=== PATIENT | male | born 1970 | race Caucasian/White ===

== ENCOUNTER 2016-03-22 09:50 | Outpatient (CLI) | payer MEDICAID | END 2016-03-22 09:51 | disposition home or self-care (01) | DX: E11.9 Type 2 diabetes mellitus without complications (principal); I10 Essential (primary) hypertension ==

== ENCOUNTER 2016-07-30 10:01 | Outpatient (CLI) | payer MEDICAID ==
[2016-07-30 13:41] LABS: CALCIUM 9.9 mg/dL (8.5-10.3); CREATININE 0.8 mg/dL (0.6-1.2); POTASSIUM 4.8 mmol/L (3.5-5.0)
[2016-07-30 18:46] LABS: HEMOGLOBIN A1C 1.84 g/dL
== END 2016-07-30 10:02 | disposition home or self-care (01) ==
LOC: LAB.N 10:01
PROVIDERS: ATTEND Family Medicine
DX: E11.65 Type 2 diabetes mellitus with hyperglycemia (principal)
CPT/HCPCS: 36415; 80048; 83036

== ENCOUNTER 2016-10-29 11:15 | Outpatient (CLI) | payer MEDICAID | END 2016-10-29 11:30 | disposition home or self-care (01) | LOC: RT.N 11:15 | PROVIDERS: ATTEND Physician Assistant | DX: I10 Essential (primary) hypertension (principal) | CPT/HCPCS: 93005 ==

== ENCOUNTER 2016-10-30 07:48 | Outpatient (CLI) | payer MEDICAID ==
[2016-10-30 13:00] LABS: BASOPHILS # (AUTO) 0.1 10^3/uL (0.0-0.1); BASOPHILS % (AUTO) 1.1 %; EOSINOPHILS # (AUTO) 0.3 10^3/uL (0.0-0.7); EOSINOPHILS % (AUTO) 4.4 %; HCT - HEMATOCRIT 41.7 % (42.0-52.0); HGB - HEMOGLOBIN 14.3 g/dL (14.0-18.0); LYMPHOCYTES # (AUTO) 1.9 10^3/uL (1.5-3.5); LYMPHOCYTES % (AUTO) 29.8 %; MEAN CORPUSCULAR HEMOGLOBIN 33.1 pg (27.0-31.0); MEAN CORPUSCULAR HGB CONC 34.4 g/dL (32.0-36.0); MEAN CORPUSCULAR VOLUME 96.2 fL (80.0-94.0); MEAN PLATELET VOLUME 9.7 fL (7.4-11.4); MONOCYTES # (AUTO) 0.8 10^3/uL (0.0-1.0); MONOCYTES % (AUTO) 12.9 %; NEUTROPHILS # (AUTO) 3.2 10^3/uL (1.5-6.6); NEUTROPHILS % (AUTO) 51.8 %; NUCLEATED RED BLOOD CELLS AUTO 0.2 /100WBC; RED BLOOD COUNT 4.33 10^6/uL (4.70-6.10); RED CELL DISTRIBUTION WIDTH 13.3 % (12.0-15.0); UNCORRECTED WHITE BLOOD COUNT 6.2 x10^3/uL; WHITE BLOOD COUNT 6.2 x10^3/uL (4.8-10.8)
[2016-10-30 13:21] LABS: ALBUMIN/GLOBULIN RATIO 1.3 (1.0-2.2); BILIRUBIN,TOTAL 1.1 mg/dL (0.2-1.0); CALCIUM 9.2 mg/dL (8.5-10.3); CREATININE 0.6 mg/dL (0.6-1.2); POTASSIUM 4.6 mmol/L (3.5-5.0); TOTAL PROTEIN 7.2 g/dL (6.7-8.2)
== END 2016-10-30 07:49 | disposition home or self-care (01) ==
LOC: LAB.N 07:48
PROVIDERS: ATTEND Physician Assistant
DX: F10.10 Alcohol abuse, uncomplicated (principal)
CPT/HCPCS: 36415; 80053; 85025

== ENCOUNTER 2017-04-07 08:43 | Outpatient (CLI) | payer MEDICAID ==
[2017-04-07 08:56] LABS: BASOPHILS # (AUTO) 0.1 10^3/uL (0.0-0.1); BASOPHILS % (AUTO) 1.4 %; EOSINOPHILS # (AUTO) 0.3 10^3/uL (0.0-0.7); EOSINOPHILS % (AUTO) 4.6 %; HGB - HEMOGLOBIN 15.6 g/dL (14.0-18.0); LYMPHOCYTES # (AUTO) 1.5 10^3/uL (1.5-3.5); LYMPHOCYTES % (AUTO) 22.8 %; MEAN CORPUSCULAR HEMOGLOBIN 32.6 pg (27.0-31.0); MEAN CORPUSCULAR VOLUME 93.2 fL (80.0-94.0); MEAN PLATELET VOLUME 9.1 fL (7.4-11.4); MONOCYTES % (AUTO) 15.7 %; NEUTROPHILS # (AUTO) 3.6 10^3/uL (1.5-6.6); NEUTROPHILS % (AUTO) 55.5 %; PLT - PLATELET COUNT 105 10^3/uL (130-450); RED BLOOD COUNT 4.78 10^6/uL (4.70-6.10); RED CELL DISTRIBUTION WIDTH 13.2 % (12.0-15.0); WHITE BLOOD COUNT 6.5 x10^3/uL (4.8-10.8)
[2017-04-07 09:07] LABS: ALBUMIN 4.1 g/dL (3.2-5.5); ALBUMIN/GLOBULIN RATIO 1.3 (1.0-2.2); BILIRUBIN,TOTAL 1.1 mg/dL (0.2-1.0); CALCIUM 9.8 mg/dL (8.5-10.3); CREATININE 0.6 mg/dL (0.6-1.2); TOTAL PROTEIN 7.2 g/dL (6.7-8.2)
[2017-04-07 09:23] LABS: HB2 TOTAL 17.4 g/dL; HEMOGLOBIN A1C 1.9 g/dL; HEMOGLOBIN A1C % 12.1 % (4.6-6.2)
== END 2017-04-07 08:44 | disposition home or self-care (01) ==
LOC: LAB 08:43
PROVIDERS: ATTEND Physician Assistant Medical
DX: E66.01 Morbid (severe) obesity due to excess calories (principal); R73.9 Hyperglycemia, unspecified; F17.210 Nicotine dependence, cigarettes, uncomplicated; E11.65 Type 2 diabetes mellitus with hyperglycemia; F10.10 Alcohol abuse, uncomplicated; I10 Essential (primary) hypertension
CPT/HCPCS: 36415; 80053; 83036; 85025

== ENCOUNTER 2018-01-12 08:06 | Outpatient (CLI) | payer MEDICAID ==
[2018-01-12 08:24] LABS: BASOPHILS # (AUTO) 0.1 10^3/uL (0.0-0.1); BASOPHILS % (AUTO) 1.3 %; EOSINOPHILS # (AUTO) 0.2 10^3/uL (0.0-0.7); EOSINOPHILS % (AUTO) 3.3 %; HGB - HEMOGLOBIN 14.9 g/dL (14.0-18.0); LYMPHOCYTES # (AUTO) 1.5 10^3/uL (1.5-3.5); LYMPHOCYTES % (AUTO) 28.3 %; MEAN CORPUSCULAR HEMOGLOBIN 33.5 pg (27.0-31.0); MEAN CORPUSCULAR VOLUME 95.7 fL (80.0-94.0); MEAN PLATELET VOLUME 8.8 fL (7.4-11.4); MONOCYTES # (AUTO) 0.9 10^3/uL (0.0-1.0); MONOCYTES % (AUTO) 16.5 %; NEUTROPHILS # (AUTO) 2.8 10^3/uL (1.5-6.6); NEUTROPHILS % (AUTO) 50.6 %; PLT - PLATELET COUNT 118 10^3/uL (130-450); RED BLOOD COUNT 4.45 10^6/uL (4.70-6.10); RED CELL DISTRIBUTION WIDTH 13.4 % (12.0-15.0); WHITE BLOOD COUNT 5.4 x10^3/uL (4.8-10.8)
[2018-01-12 08:43] LABS: BUN - BLOOD UREA NITROGEN 21 mg/dL (6-20); CALCIUM 9.1 mg/dL (8.5-10.3); CARBON DIOXIDE - CO2 29 mmol/L (21-32); CHLORIDE 97 mmol/L (101-111); CHOL/HDL RATIO 3.5 (<5.0); CHOLESTEROL 138 mg/dL; CREATININE 0.9 mg/dL (0.6-1.2); GFR - MDRD 90 (>89); GLUCOSE 363 mg/dL (70-100); HDL CHOLESTEROL 39 mg/dL; LDL CHOLESTEROL,CALCULATED 77 mg/dL; SODIUM 134 mmol/L (135-145); VLDL CHOLESTEROL 22 mg/dL
[2018-01-12 08:44] LABS: HB2 TOTAL 16.2 g/dL; HEMOGLOBIN A1C 1.8 g/dL; HEMOGLOBIN A1C % 12.3 % (4.6-6.2)
== END 2018-01-12 08:07 | disposition home or self-care (01) ==
LOC: LAB 08:06
PROVIDERS: ATTEND Physician Assistant Medical
DX: E11.9 Type 2 diabetes mellitus without complications (principal); I10 Essential (primary) hypertension; E66.01 Morbid (severe) obesity due to excess calories
CPT/HCPCS: 36415; 80048; 80061; 83036; 83721; 85025

== ENCOUNTER 2018-10-27 08:53 | Outpatient (CLI) | payer MEDICAID ==
[2018-10-27 09:15] LABS: CALCIUM 9.8 mg/dL (8.5-10.3); CREATININE 0.8 mg/dL (0.6-1.2)
[2018-10-27 09:40] LABS: HB2 TOTAL 16.1 g/dL; HEMOGLOBIN A1C 1.73 g/dL
== END 2018-10-27 08:54 | disposition home or self-care (01) ==
LOC: LAB 08:53
PROVIDERS: ATTEND Physician Assistant Medical
DX: E11.8 Type 2 diabetes mellitus with unspecified complications (principal)
CPT/HCPCS: 36415; 80048; 83036

== ENCOUNTER 2018-12-01 08:00 | Outpatient (CLI) | payer MEDICAID | END 2018-12-01 23:59 | disposition home or self-care (01) | LOC: LAB.N 08:00 | PROVIDERS: ATTEND Family Medicine | DX: R31.9 Hematuria, unspecified (principal) | CPT/HCPCS: 36415; 84153; 87086 ==

== ENCOUNTER 2019-01-16 08:19 | Outpatient (CLI) | payer MEDICAID ==
--- NOTE | 2019-01-17 04:44 | Ultrasound Report ---
Reason: HEMATURIA, BACK PAIN Procedure Date: 01/16/2019 Accession Number: [id number] / [id number] Procedure: US - Retroperitoneal CPT Code: Final Report FULL RESULT: EXAM: RENAL ULTRASOUND EXAM DATE: 01/16/2019 09:11 AM. CLINICAL HISTORY: HEMATURIA, BACK PAIN. COMPARISON: US abdomen 12/28/2013 8:12 AM. TECHNIQUE: Real-time scanning was performed with static images obtained. FINDINGS: Right Kidney: 14.3 x 5.2 x 7.2 cm. Normal echotexture with no stones, contour-deforming masses, or hydronephrosis. Left Kidney: 14.6 x 6.9 x 5.8 cm. Normal echotexture with no stones, contour-deforming masses, or hydronephrosis. Bladder: Bilateral jets seen. The prevoid bladder volume was 375 cc. The postvoid bladder volume was 39 cc. Other: Prostate measures 3.2 x 3.0 x 6.4 cm, 32 cc. IMPRESSION: 1. Kidneys show no significant abnormalities. 2. Post void residual 39 cc. RADIA
== END 2019-01-16 08:20 | disposition home or self-care (01) ==
LOC: DI 08:19
PROVIDERS: ATTEND Urology
DX: R31.9 Hematuria, unspecified (principal)
CPT/HCPCS: 76770

== ENCOUNTER 2019-02-20 06:41 | Outpatient (CLI) | payer MEDICAID ==
[2019-02-20 07:05] LABS: CREATININE 0.6 mg/dL (0.6-1.2)
[2019-02-20] MEDS ORDERED: IOVERSOL 320 100 ML VIAL IVP ONE ×2 (07:05→07:43)
--- NOTE | 2019-02-20 11:52 | CT Report ---
Reason: MICROSCOPIC HEMATURIA Procedure Date: 02/20/2019 Accession Number: [id number] / [id number] Procedure: CT - IVP CPT Code: Final Report FULL RESULT: EXAM: CT ABDOMEN AND PELVIS WITHOUT AND WITH CONTRAST (CT IVP) EXAM DATE: 02/20/2019 07:57 AM. CLINICAL HISTORY: microscopic hematuria x2 months. COMPARISONS: CT ABDOMEN/PELVIS W/ 03/05/2013 11:01 AM. TECHNIQUE: Routine helical imaging was performed through the kidneys, ureters and bladder in the precontrast, postcontrast and delayed phase (split bolus protocol utilized). IV Contrast: 100 cc Optiray 320. Reconstructions: Coronal and sagittal. In accordance with CT protocol optimization, one or more of the following dose reduction techniques were utilized for this exam: automated exposure control, adjustment of mA and/or KV based on patient size, or use of iterative reconstructive technique. FINDINGS: Lung Bases: Unremarkable. Liver: Normal. No masses. Gallbladder/Bile Ducts: There are calcified gallstones within the gallbladder. No biliary dilatation. Spleen: Normal. Pancreas: Normal. Adrenal Glands: Normal. Kidneys/Bladder: Right Kidney/Ureter: No renal or ureteral stones. No hydronephrosis or hydroureter. No masses. Evaluation of the renal collecting system is limited by low density of excreted contrast. Left Kidney/Ureter: No renal or ureteral stones. No hydronephrosis or hydroureter. No masses. Evaluation of the renal collection system is limited by low density of excreted contrast. Bladder: No stones. No wall thickening or mass. There is dilute contrast in the urinary bladder on post contrast images. Peritoneal Cavity/Bowel: No free air or adenopathy. There is trace free fluid in the right upper quadrant of the abdomen over the dome of the liver, and in the bilateral paracolic gutters. No masses or acute inflammatory process. No dilated loops of bowel or abnormal colonic stool burden. The appendix is normal. Pelvic Organs: Visualized pelvic organs are unremarkable. Vasculature: No aneurysms or other significant abnormality. Bones: No fracture or other acute osseous abnormality. No bone lesion. There are mild to moderate degenerative disk changes of the lower thoracic and lumbar spine. There is a large posterior disk bulge at the L5-S1 level with severe narrowing of the central canal, unchanged compared to 03/05/2013. Other: None. IMPRESSION: 1. No renal mass, hydronephrosis, or renal collecting system calculi identified. Evaluation of the renal collecting systems is limited by low density of excreted contrast on these split bolus protocol images. Recommend repeating a delayed excretory phase series to complete the evaluation, which should be performed at no cost. 2. Cholelithiasis. No evidence of acute cholecystitis. 3. Small amount of free intraperitoneal fluid. RADIA
== END 2019-02-20 06:42 | disposition home or self-care (01) ==
LOC: DI 06:41
PROVIDERS: ATTEND Urology
DX: K80.20 Calculus of gallbladder without cholecystitis without obstruction (principal); R31.29 Other microscopic hematuria
CPT/HCPCS: 36415; 74178; 82565; 84520; Q9967

== ENCOUNTER 2019-03-16 08:18 | Outpatient (CLI) | payer MEDICAID ==
[2019-03-16] MEDS ORDERED: IOVERSOL 320 100 ML VIAL IVP ONE ×2 (08:26→08:51)
--- NOTE | 2019-03-16 09:57 | CT Report ---
Reason: TECH REPEAT - HEMATURIA Procedure Date: 03/16/2019 Accession Number: [id number] / [id number] Procedure: CT - IVP CPT Code: Final Report FULL RESULT: EXAM: CT ABDOMEN AND PELVIS WITHOUT AND WITH CONTRAST (CT IVP) EXAM DATE: 03/16/2019 09:00 AM. CLINICAL HISTORY: TECH REPEAT - HEMATURIA. COMPARISONS: IVP 02/20/2019 7:40 AM. TECHNIQUE: Routine helical imaging was performed through the kidneys, ureters and bladder in the precontrast, postcontrast and delayed phase. IV Contrast: OPTI 320 100ML. Reconstructions: Coronal and sagittal. In accordance with CT protocol optimization, one or more of the following dose reduction techniques were utilized for this exam: automated exposure control, adjustment of mA and/or KV based on patient size, or use of iterative reconstructive technique. FINDINGS: Lung Bases: Unremarkable. Liver: Normal. No masses. Gallbladder/Bile Ducts: Cholelithiasis. Spleen: Splenomegaly, spleen spans up to 15 cm. Pancreas: Normal. Adrenal Glands: Normal. Kidneys/Bladder: Right Kidney/Ureter: No renal or ureteral stones. No hydronephrosis or hydroureter. As seen on axial image 58-3 and coronal image 37 series 5 as well as sagittal image 47 of series 6 there is narrowing of the small caliber contrast opacified ureter as it takes a tortuous course circumnavigating a draining vein with apparent filling defect potentially due to volume averaging of the 2 structures. A urothelial mass at this level cannot be excluded. Left Kidney/Ureter: No renal or ureteral stones. No hydronephrosis or hydroureter. No masses. Bladder: No stones. No wall thickening or mass. Peritoneal Cavity/Bowel: Normal. No free fluid, free air or adenopathy. No masses or acute inflammatory process. Pelvic Organs: Visualized pelvic organs are unremarkable. Vasculature: No aneurysms or other significant abnormality. Bones: Prominent disk osteophyte complex narrowing the apparent central canal at L5-S1 appears unchanged. No aggressive osseous lesions. Other: None. IMPRESSION: Apparent filling defect in the proximal to mid right ureter as described above, possibly an artifactual finding. Given hematuria and absence of calculi or other explanation, recommend consideration for direct visualization by ureteroscopy versus close interval follow-up. RADIA
== END 2019-03-16 08:19 | disposition home or self-care (01) ==
LOC: DI 08:18
PROVIDERS: ATTEND Urology
DX: R31.29 Other microscopic hematuria (principal)
CPT/HCPCS: 74178

== ENCOUNTER 2019-05-31 09:19 | Outpatient (CLI) | payer MEDICAID ==
[2019-05-31 09:36] LABS: BASOPHILS # (AUTO) 0.1 10^3/uL (0.0-0.1); BASOPHILS % (AUTO) 1.2 %; EOSINOPHILS # (AUTO) 0.1 10^3/uL (0.0-0.7); EOSINOPHILS % (AUTO) 2.8 %; HGB - HEMOGLOBIN 14.4 g/dL (14.0-18.0); LYMPHOCYTES # (AUTO) 1.1 10^3/uL (1.5-3.5); LYMPHOCYTES % (AUTO) 24.4 %; MEAN CORPUSCULAR HEMOGLOBIN 33.7 pg (27.0-31.0); MEAN CORPUSCULAR HGB CONC 35.3 g/dL (32.0-36.0); MEAN CORPUSCULAR VOLUME 95.6 fL (80.0-94.0); MEAN PLATELET VOLUME 10.8 fL (7.4-11.4); MONOCYTES # (AUTO) 0.8 10^3/uL (0.0-1.0); MONOCYTES % (AUTO) 18.9 %; NEUTROPHILS # (AUTO) 2.3 10^3/uL (1.5-6.6); NEUTROPHILS % (AUTO) 52.5 %; PLT - PLATELET COUNT 84 10^3/uL (130-450); RED BLOOD COUNT 4.27 10^6/uL (4.70-6.10); RED CELL DISTRIBUTION WIDTH 12.7 % (12.0-15.0); WHITE BLOOD COUNT 4.3 x10^3/uL (4.8-10.8)
[2019-05-31 09:50] LABS: CHOLESTEROL 205 mg/dL; HDL CHOLESTEROL 69 mg/dL; LDL CHOLESTEROL,CALCULATED 123 mg/dL; LDL/HDL RATIO 1.8 (<3.6); VLDL CHOLESTEROL 13 mg/dL
[2019-05-31 09:56] LABS: HEMOGLOBIN A1C 1.35 g/dL; HEMOGLOBIN A1C % 10.4 % (4.6-6.2)
== END 2019-05-31 09:20 | disposition home or self-care (01) ==
LOC: LAB 09:19
PROVIDERS: ATTEND Physician Assistant Medical
DX: E11.65 Type 2 diabetes mellitus with hyperglycemia (principal); E66.01 Morbid (severe) obesity due to excess calories; I10 Essential (primary) hypertension; Z79.4 Long term (current) use of insulin
CPT/HCPCS: 36415; 80061; 83036; 83721; 85025

== ENCOUNTER 2019-11-11 07:49 | Outpatient (CLI) | payer MEDICAID ==
[2019-11-11 08:49] LABS: HGB - HEMOGLOBIN 13.3 g/dL (14.0-18.0); MEAN CORPUSCULAR HEMOGLOBIN 34.4 pg (27.0-31.0); MEAN CORPUSCULAR HGB CONC 35.9 g/dL (32.0-36.0); MEAN CORPUSCULAR VOLUME 95.6 fL (80.0-94.0); MEAN PLATELET VOLUME 10.2 fL (7.4-11.4); RED BLOOD COUNT 3.87 10^6/uL (4.70-6.10); RED CELL DISTRIBUTION WIDTH 13.4 % (12.0-15.0); WHITE BLOOD COUNT 4.2 x10^3/uL (4.8-10.8)
[2019-11-11 09:01] LABS: CALCIUM 8.5 mg/dL (8.5-10.3); CREATININE 0.6 mg/dL (0.6-1.2)
== END 2019-11-11 07:50 | disposition home or self-care (01) ==
LOC: DI 07:49
PROVIDERS: ATTEND Family Medicine
DX: R06.09 Other forms of dyspnea (principal); R60.0 Localized edema
CPT/HCPCS: 36415; 80048; 83880; 85027; 93306

== ENCOUNTER 2019-12-08 07:49 | Emergency (ER) | payer MEDICAID ==
[2019-12-08] MEDS ORDERED: SILVER NITRATE APPLICATOR TOP STA ×2 (08:03→08:08)
--- NOTE | 2019-12-08 08:05 | ED Physician Documentation ---
PD HPI WOUND RECHECK - Stated complaint Stated Complaint: R BIG TOE INJ - Histroy obtained from History obtained from: Patient (49-year-old gentleman with diabetic neuropathy stubbed his right great toe yesterday. Because of the neuropathy it is painless.) Review of Systems Constitutional: denies: Fever, Chills Cardiac: reports: Reviewed and negative Respiratory: reports: Reviewed and negative PD PAST MEDICAL HISTORY - Past Medical History Cardiovascular: Hypertension Endocrine/Autoimmune: Type 2 diabetes Psych: Depression, Anxiety Musculoskeletal: Osteoarthritis, Other - Past Surgical History Past Surgical History: Yes Ortho: Arthroscopic surgery - Present Medications Home Medications: Ambulatory Orders Medication Instructions Recorded Confirmed Bupropion HCl [Wellbutrin] 150 mg PO BID 07/24/12 02/24/17 Metformin HCl [Metformin HCl ER] 1,000 mg PO BID 07/24/12 02/24/17 Metoprolol Succinate 25 mg PO BID 07/24/12 02/24/17 Atorvastatin [Lipitor] 40 mg PO DAILY PM 08/17/14 02/24/17 Albuterol Sulfate [Proair Hfa 1 - 2 puffs INH Q4H PRN 11/13/16 02/24/17 Inhaler] Aspirin [Adult Low Dose Aspirin EC] 81 mg PO DAILY 11/13/16 02/24/17 Diclofenac Sodium 50 mg PO BID 11/13/16 02/24/17 Insulin Glargine,Hum.rec.anlog 60 units SUBQ DAILY 11/13/16 02/24/17 [Basaglar Kwikpen U-100] Insulin Regular, Human [Humulin R] 15 - 30 units SUBQ TIDWM 11/13/16 02/24/17 Losartan [Cozaar] 50 mg ORAL DAILY 11/13/16 02/24/17 Multivitamin [Multivitamins] 1 each PO DAILY 11/13/16 02/24/17 [place]-3S/Dha/Epa/Fish Oil [Fish 1 cap ORAL DAILY 11/13/16 02/24/17 Oil [place]-3 Softgel] amLODIPine [Norvasc] 5 mg ORAL DAILY 11/13/16 02/24/17 Cholecalciferol (Vitamin D3) 2,000 unit PO DAILY 02/24/17 02/24/17 [Vitamin D] Furosemide [Lasix] 40 mg PO DAILY #10 tablet 08/11/20 Mupirocin Calcium [Mupirocin] 1 film TP BID #1 cream..g. 10/26/19 Bacitracin Zinc Oint 1 applic TOP BID #1 tube 12/08/19 Cephalexin [Keflex] 500 mg PO Q6H #28 capsule 12/08/19 - Allergies Allergies/Adverse Reactions: Allergies Allergy/AdvReac Type Severity Reaction Status Date / Time lisinopril Allergy Unknown Verified 12/08/19 08:16 - Social History Does the pt smoke?: No Smoking Status: Former smoker Does the pt drink ETOH?: Yes Does the pt have substance abuse?: No - Immunizations Immunizations are current?: No - POLST Patient has POLST: No PD ED PE NORMAL - Vitals Vital signs reviewed: Yes - General General: Alert and oriented X 3, No acute distress - HEENT HEENT: PERRL, EOMI - Extremities Extremities: Other (The right great toenail is hanging by a thread, it was removed painlessly during examination with brisk bleeding from the nailbed. He has chronic venous stasis changes of the feet and severe neuropathy.) - Neuro Neuro: Alert and oriented X 3, Normal speech Results - Vitals Vitals: Vital Signs - 24 hr 12/08/19 12/08/19 07:57 08:55 Temperature 37 C Heart Rate 90 Respiratory 16 Rate Blood Pressure 133/78 H 132/78 H O2 Saturation 100 Oxygen O2 Source Room air - Rads (name of study) Xray toe Radiology: EMP read contemporaneously (Bones are normal, the radiodensity noted I suspect is from the silver nitrate used for cautery.) PD MEDICAL DECISION MAKING - ED course ED course: His toenail was pretty much hanging off. This was removed during exam easily and did not require anesthetic Because of his neuropathy. The base was cauterized with silver nitrate and a dressing was placed. X-ray does not show any bony injury. Departure - Departure Disposition: 01 Home, Self Care Clinical Impression: Toenail avulsion Qualifiers: Encounter type: initial encounter Qualified Code(s): S91.209A - Unspecified open wound of unspecified toe(s) with damage to nail, initial encounter Condition: Good Record reviewed to determine appropriate education?: Yes Instructions: ED Foot Care Diabetic Prescriptions: Bacitracin Zinc Oint 1 applic TOP BID #1 tube Cephalexin [Keflex] 500 mg PO Q6H #28 capsule Comments: Soak your feet daily in clean water, soap and water as well. Otherwise keep it dressed with a clean nonstick dressing and antibiotic ointment prescribed. Return for new or worsening symptoms including redness, swelling, increased drainage. 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 Discharge Date/Time: 12/08/19 08:55
[2019-12-08 09:15] VITALS: BP 132/78
--- NOTE | 2019-12-08 09:24 | XRAY Report ---
PROCEDURE: Toe(s) RT INDICATIONS: R great toe inj TECHNIQUE: 3 views of the right great toe(s) acquired. COMPARISON: None FINDINGS: Bones: No fractures or dislocations. No suspicious bony lesions. Mild degenerative changes at the f irst MTP joint. Soft tissues: There is an irregular radiodensity in the dorsal tissues overlying the first distal pha lanx. IMPRESSION: No fractures. 2. Radiodensity in the dorsal soft tissues may be secondary to overlying bandage or density in the to enail. Correlate clinically. Reviewed by: Shantell Robertson MD on 12/08/2019 8:22 AM [facility] Approved by: Shantell Robertson MD on 12/08/2019 8:22 AM [facility] Station ID: [id number]
== END 2019-12-08 08:55 | disposition home or self-care (01) ==
LOC: ED 07:49
DX: S91.201A Unspecified open wound of right great toe with damage to nail, initial encounter (principal); W22.8XXA Striking against or struck by other objects, initial encounter; I10 Essential (primary) hypertension; E11.42 Type 2 diabetes mellitus with diabetic polyneuropathy; Z79.4 Long term (current) use of insulin
CPT/HCPCS: 73660; 99283

== ENCOUNTER 2020-02-15 10:02 | Inpatient (IN) | payer MEDICAID ==
[2020-02-15 10:43] LABS: BASOPHILS # (AUTO) 0.1 10^3/uL (0.0-0.1); BASOPHILS % (AUTO) 1.8 %; EOSINOPHILS # (AUTO) 0.1 10^3/uL (0.0-0.7); EOSINOPHILS % (AUTO) 2.4 %; LYMPHOCYTES # (AUTO) 0.8 10^3/uL (1.5-3.5); LYMPHOCYTES % (AUTO) 15.9 %; MEAN CORPUSCULAR HEMOGLOBIN 34.5 pg (27.0-31.0); MEAN CORPUSCULAR HGB CONC 34.4 g/dL (32.0-36.0); MEAN CORPUSCULAR VOLUME 100.3 fL (80.0-94.0); MEAN PLATELET VOLUME 9.5 fL (7.4-11.4); MONOCYTES # (AUTO) 0.7 10^3/uL (0.0-1.0); MONOCYTES % (AUTO) 14.5 %; NEUTROPHILS # (AUTO) 3.3 10^3/uL (1.5-6.6); NEUTROPHILS % (AUTO) 65.2 %; PLT - PLATELET COUNT 181 10^3/uL (130-450); RED BLOOD COUNT 3.77 10^6/uL (4.70-6.10); RED CELL DISTRIBUTION WIDTH 12.7 % (12.0-15.0); WHITE BLOOD COUNT 5.1 x10^3/uL (4.8-10.8)
[2020-02-15 10:53] LABS: ALBUMIN 2.5 g/dL (3.2-5.5); ALBUMIN/GLOBULIN RATIO 0.6 (1.0-2.2); BILIRUBIN,TOTAL 2.7 mg/dL (0.2-1.0); CALCIUM 8.8 mg/dL (8.5-10.3); CREATININE 0.8 mg/dL (0.6-1.2); TOTAL PROTEIN 6.8 g/dL (6.7-8.2)
--- NOTE | 2020-02-15 11:08 | XRAY Report ---
PROCEDURE: Chest 1 View X-Ray INDICATIONS: Chest pain TECHNIQUE: One view of the chest was acquired. COMPARISON: 10/26/2019 FINDINGS: Surgical changes and devices: None. Lungs and pleura: Low lung volumes. No pleural effusions or pneumothorax. Lungs are clear. Mediastinum: Mediastinal contours appear normal. Heart size is normal. Bones and chest wall: No suspicious bony lesions. Overlying soft tissues appear unremarkable. IMPRESSION: Low lung volumes. No acute finding. Reviewed by: Hank Busch MD on 02/15/2020 11:06 AM [facility] Approved by: Hank Busch MD on 02/15/2020 11:06 AM [facility] Station ID: [id number]
[2020-02-15] MEDS ORDERED: IOVERSOL 320 100 ML VIAL IVP ONE ×2 (11:12→13:20)
[2020-02-15] MEDS ORDERED: FUROSEMIDE 40 MG/4 ML VIAL IVP STA (11:39)
[2020-02-15] MEDS ORDERED: chlordiazePOXIDE 25 MG CAPSULE PO STA (11:50)
--- NOTE | 2020-02-15 11:50 | CT Report ---
PROCEDURE: PELVIS W INDICATIONS: r/o fourniers CONTRAST: IV CONTRAST: Optiray 320 ml: 100 PO CONTRAST: *NO PO CONTRAST TECHNIQUE: After the administration of intravenous contrast, 5 mm thick sections acquired from the iliac crests to the symphysis. 5 mm thick coronal and sagittal reformats were acquired. For radiation dose reduc tion, the following was used: automated exposure control, adjustment of mA and/or kV according to pa tient size. COMPARISON: CT IVP dated 03/16/2019 FINDINGS: Image quality: Excellent. Peritoneum and bowel: Contrast enhanced bowel loops demonstrate normal wall thickness and caliber. No free fluid or air. Genitourinary: Bladder wall thickness is normal. Nodes and vessels: No iliac, pelvic, or inguinal adenopathy. Iliac vessels demonstrate normal size and enhancement. Bones: No suspicious bony lesions. Miscellaneous: No inguinal hernias. Marked ascites has developed. There is generalized anasarca. Th ere is extensive scrotal edema. There is no gas present in the scrotum. IMPRESSION: 1. Development of marked ascites and generalized anasarca. 2. Extensive scrotal edema. No scrotal gas present. Reviewed by: Maikol Cowart MD on 02/15/2020 11:49 AM PST Approved by: Maikol Cowart MD on 02/15/2020 11:49 AM PST Station ID: [id number]
[2020-02-15 12:10] LABS: GLUCOSE, URINE (UA) 500 mg/dL (NEGATIVE); KETONES,URINE (UA) NEGATIVE (NEGATIVE); LEUKOCYTE ESTERASE, URINE NEGATIVE (NEGATIVE); NITRITE,URINE NEGATIVE (NEGATIVE); OCCULT BLOOD,URINE MODERATE (NEGATIVE); PROTEIN,URINE TRACE mg/dL (NEGATIVE); UROBILINOGEN,URINE 4 E.U./dL (NORMAL)
[2020-02-15 12:29] LABS: BILIRUBIN,URINE NEGATIVE (NEGATIVE); CLARITY,URINE HAZY (CLEAR); ICTOTEST,URINE NEGATIVE
[2020-02-15] MEDS ORDERED: IBUPROFEN 600 MG TABLET PO PRN (12:30)
--- NOTE | 2020-02-15 12:35 | ED Physician Documentation ---
History of Present Illness - Stated complaint Stated Complaint: MALE - Chief complaint Chief Complaint: General - History obtained from History obtained from: Patient - Additonal information Additional information: 49-year-old man with past medical history of alcohol abuse, last drink 1 week ago, diabetes, high blood pressure, hyperlipidemia, and cardiogenic diffuse edema, presents with testicular swelling over the past several days has progressively worsened to the point where he is unable to urinate normally. Also with progressive dyspnea and intermittent chest discomfort over the past several days. Patient saw slurry man Dr. Negron in january and had an echocardiogram and was told he has normal heart function. denies fevers, abdominal pain, dysuria, hematuria. moderate constant aching testicular pain that is nonradiating, a/w the swelling, without exacerbating//relieving factors. Review of Systems Ten Systems: 10 systems reviewed and negative Constitutional: denies: Fever, Chills Cardiac: reports: Chest pain / pressure, Pedal edema Respiratory: reports: Dyspnea. denies: Cough GI: denies: Abdominal Pain : reports: Unable to Void, Testicular pain PD PAST MEDICAL HISTORY - Past Medical History Past Medical History: Yes Cardiovascular: Hypertension, High cholesterol Respiratory: Asthma Neuro: Peripheral neuropathy Endocrine/Autoimmune: Type 2 diabetes GI: None : None HEENT: Other Psych: Depression, Anxiety Musculoskeletal: Osteoarthritis, Other Derm: Other - Past Surgical History Past Surgical History: Yes Ortho: Arthroscopic surgery - Present Medications Home Medications: Ambulatory Orders Medication Instructions Recorded Confirmed Bupropion HCl [Wellbutrin] 150 mg PO BID 07/24/12 02/15/20 Metformin HCl [Metformin HCl ER] 1,000 mg PO BID 07/24/12 02/15/20 Metoprolol Succinate 25 mg PO BID 07/24/12 02/15/20 Atorvastatin [Lipitor] 40 mg PO DAILY PM 08/17/14 02/15/20 Albuterol Sulfate [Proair Hfa 1 - 2 puffs INH Q4H PRN 11/13/16 02/15/20 Inhaler] Aspirin [Adult Low Dose Aspirin EC] 81 mg PO DAILY 11/13/16 02/15/20 Insulin Glargine,Hum.rec.anlog 65 units SUBQ DAILY PM 11/13/16 02/15/20 [Basaglstephon Asher U-100] Insulin Regular, Human [Humulin R] 15 - 30 units SUBQ TIDWM 11/13/16 02/15/20 Losartan [Cozaar] 100 mg ORAL DAILY 11/13/16 02/15/20 Multivitamin [Multivitamins] 1 each PO DAILY 11/13/16 02/15/20 [place]-3S/Dha/Epa/Fish Oil [Fish 1 cap ORAL DAILY 11/13/16 02/15/20 Oil [place]-3 Softgel] amLODIPine [Norvasc] 5 mg ORAL DAILY 11/13/16 02/15/20 Cholecalciferol (Vitamin D3) 2,000 unit PO DAILY 02/24/17 02/15/20 [Vitamin D] Furosemide [Lasix] 40 mg PO DAILY #10 tablet 10/26/19 02/15/20 Fluticasone Propionate [Flovent 1 puffs IH DAILY 02/15/20 02/15/20 Diskus] - Allergies Allergies/Adverse Reactions: Allergies Allergy/AdvReac Type Severity Reaction Status Date / Time lisinopril Allergy Unknown Verified 02/15/20 10:11 - Social History Does the pt smoke?: No Smoking Status: Former smoker Does the pt drink ETOH?: Yes ETOH Use: Beer Does the pt have substance abuse?: No - Immunizations Immunizations are current?: Yes - POLST Patient has POLST: No PD ED PE NORMAL - Vitals Vital signs reviewed: Yes - General General: Alert and oriented X 3 - HEENT HEENT: Atraumatic, PERRL, EOMI - Neck Neck: Supple, no meningeal sign - Cardiac Cardiac: Other (tachycardic rate, regular rhythm) - Respiratory Respiratory: No respiratory distress, Clear bilaterally - Abdomen Abdomen: Non tender, Non distended, Other (distended, tight abdomen with fluid wave) - Male Male : Social Services present (RN), Other (severe scrotal edema with discoloration) - Rectal Rectal: Deferred - Back Back: No CVA TTP - Derm Derm: Normal color - Extremities Extremities: No deformity, Other (moderate edema) - Neuro Neuro: Alert and oriented X 3 - Psych Psych: Normal mood, Normal affect Results - Vitals Vitals: Vital Signs - 24 hr 02/15/20 02/15/20 02/15/20 10:08 10:51 11:33 Temperature 36.3 C L 37.3 C 37.2 C Heart Rate 123 H 118 H 116 H Respiratory 20 18 22 Rate Blood Pressure 152/87 H 143/92 H 141/100 H O2 Saturation 99 99 99 02/15/20 12:17 Temperature Heart Rate 120 H Respiratory 30 H Rate Blood Pressure 172/116 H O2 Saturation 98 Oxygen O2 Source Room air - EKG (time done) 1021 Rate: Rate (enter#) (122) Rhythm: Sinus tachycardia - Labs Labs: Laboratory Tests 02/15/20 02/15/20 02/15/20 10:30 10:30 10:30 WBC 5.1 RBC 3.77 L Hgb 13.0 L Hct 37.8 L MCV 100.3 H MCH 34.5 H MCHC 34.4 RDW 12.7 Plt Count 181 MPV 9.5 Neut # (Auto) 3.3 Lymph # (Auto) 0.8 L [place] # (Auto) 0.7 Eos # (Auto) 0.1 Baso # (Auto) 0.1 Absolute Nucleated RBC 0.00 Nucleated RBC % 0.0 Sodium 130 L Potassium 3.9 Chloride 92 L Carbon Dioxide 28 Anion Gap 10.0 BUN 14 Creatinine 0.8 Estimated GFR (MDRD) 102 Glucose 301 H Calcium 8.8 Total Bilirubin 2.7 H AST 54 H ALT 24 Alkaline Phosphatase 78 Troponin I High Sens 8.0 C-Reactive Protein Total Protein 6.8 Albumin 2.5 L Globulin 4.3 H Albumin/Globulin Ratio 0.6 L Lipase 116 H Urine Color Urine Clarity Urine pH Ur Specific [place] Urine Protein Urine Glucose (UA) Urine Ketones Urine Occult Blood Urine Nitrite Urine Bilirubin Urine Urobilinogen Ur Leukocyte Esterase Ur Microscopic Review 02/15/20 02/15/20 10:54 12:00 WBC RBC Hgb Hct MCV MCH MCHC RDW Plt Count MPV Neut # (Auto) Lymph # (Auto) [place] # (Auto) Eos # (Auto) Baso # (Auto) Absolute Nucleated RBC Nucleated RBC % Sodium Potassium Chloride Carbon Dioxide Anion Gap BUN Creatinine Estimated GFR (MDRD) Glucose Calcium Total Bilirubin AST ALT Alkaline Phosphatase Troponin I High Sens C-Reactive Protein 5.7 H Total Protein Albumin Globulin Albumin/Globulin Ratio Lipase Urine Color YELLOW Urine Clarity HAZY Urine pH 6.0 Ur Specific [place] 1.015 Urine Protein TRACE Urine Glucose (UA) 500 H Urine Ketones NEGATIVE Urine Occult Blood MODERATE H Urine Nitrite NEGATIVE Urine Bilirubin NEGATIVE Urine Urobilinogen 4 H Ur Leukocyte Esterase NEGATIVE Ur Microscopic Review INDICATED PD MEDICAL DECISION MAKING - ED course Complexity details: reviewed results, d/w patient, d/w application security consultant ED course: 49-year-old man with history of alcohol abuse, currently in withdrawal, presents with severe testicular swelling and diffuse anasarca for the past 10 days. There does not appear to be any infection on CT pelvis imaging, however we will monitor very carefully. He is tachycardic with improvement with oral Librium. Discussed with hospitalist who will admit to ICU and evaluate for need for paracentesis. Departure - Departure Disposition: 66 [facility] DC/Xfer Clinical Impression: Anasarca, Ascites, Swelling of the testicles, Urinary retention, Alcohol withdrawal Condition: Stable
[2020-02-15 12:42] LABS: BACTERIA,URINE None Seen /HPF (None Seen); SQUAMOUS EPITHELIAL CELL,UR NONE SEEN (<= Few)
[2020-02-15] MEDS ORDERED: FUROSEMIDE 40 MG/4 ML VIAL IVP SCH (14:00)
[2020-02-15] MEDS ORDERED: LORazepam 2 MG/ML VIAL IVP PRN (15:54)
--- NOTE | 2020-02-15 16:12 | PHARMACY PROGRESS NOTE ---
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 PATIENT ABLE TO CONFIRM HOME MEDICATIONS ), Physician records, Pharmacy records, Insurance records As the person ultimately responsible for medication therapy, providers are able to order a medication from an existing home medication list in [facility] via the "Reconcile Routine" prior to Confirmation of that medication by windows desktop support. Such practice is discouraged except when the physician, in their clinical judgment, deems that a medical need exists for a medication without regard to previous use.
[2020-02-15] MEDS: FUROSEMIDE 40 MG/4 ML VIAL IVP SCH (16:17)
[2020-02-15] MEDS: SODIUM CHLORIDE FLUSH 0.9% 10 ML SYRINGE IVP PRN (16:19)
[2020-02-15 17:09] LABS: MAGNESIUM 1.7 mg/dL (1.7-2.8); PHOSPHORUS 3.1 mg/dL (2.5-4.6)
[2020-02-15] MEDS: INSULIN ASPART 300 UNIT/3 ML PEN SUBQ SCH ×2 (17:44→21:07)
[2020-02-15] MEDS: chlordiazePOXIDE 25 MG CAPSULE PO SCH (17:46)
[2020-02-15] MEDS: SODIUM CHLORIDE FLUSH 0.9% 10 ML SYRINGE IVP SCH (17:47)
[2020-02-15 18:24] LABS: CALCIUM 8.6 mg/dL (8.5-10.3); CREATININE 0.9 mg/dL (0.6-1.2)
[2020-02-15 18:45] LABS: INR 1.3 (0.8-1.2); PT - PROTHROMBIN TIME 14.1 secs (9.9-12.6)
[2020-02-15] MEDS ORDERED: ALBUTEROL 6.7 GM INHALER INH PRN (19:18)
--- NOTE | 2020-02-15 20:05 | HISTORY & PHYSICAL EXAMINATION ---
DATE OF SERVICE: 02/15/2020 Physician: Lili Hubbard MD CC TO: new PCP, Dr Brady HISTORY OF PRESENT ILLNESS: This is a 49-year-old white male with a history of alcohol abuse, drinks a 6-pack of beer a day, he reports. He has a history of diabetes, hypertension, hyperlipidemia and prior edema for which he was seen by a Room Service Bellhop just 1 month ago. He was told he has a normal ejection fraction by Echo and that his "swelling is not from abnormal heart function". Patient started to retain fluid over the past 2-3 months very slowly despite using his home diuretic and over the past 3 days he developed swelling all the way up to his scrotum and his penis and then he started to get short of breath and orthopneic as well. When he was orthopneic, he stopped drinking the beer 3 days ago, thinking that the "fluid from the beer was causing the fluid retention". He states he has never gone through withdrawal when he stops drinking alcohol cold turkey, in the past. He presented to the emergency room today complaining of the orthopnea and inability to urinate realizing that the shaft of his penis was extremely swollen. A Blunt was placed, which gave him relief and he was found to have anasarca, tense ascites, glucose of 300, sodium of 130, bilirubin of 2.7 as well as hypertension uncontrolled at 170/116 and tachycardic with a heart rate of 120. He is being admitted to the ICU for treatment of anasarca, tense ascites, uncontrolled hypertension, elevated glucose, hyponatremia and possibly alcohol withdrawal. PAST MEDICAL HISTORY: 1. Diabetes mellitus. 2. Alcoholic liver disease with prior edema. 3. Hypertension. 4. High cholesterol. 5. Asthma. 6. Peripheral neuropathy. 7. Anxiety and depression. 8. Osteoarthritis. PAST SURGICAL HISTORY: Arthroscopic surgery. SOCIAL HISTORY: Patient admits to drinking one 6-pack of beer a day. He does not smoke, quit about 8 years ago. 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 He has no natural children. He has a brother and sister, who he is estranged from. ALLERGIES: LISINOPRIL, WHICH CAUSED UNKNOWN SIDE EFFECT. MEDICATIONS 1. Wellbutrin 150 mg b.i.d. 2. Metformin 1000 mg b.i.d. 3. Metoprolol Succinate 25 mg b.i.d. 4. Lipitor 40 mg every night. 5. Albuterol inhaler p.r.n. 6. Flovent Diskus 1 puff daily. 7. Baby aspirin daily. 8. Glargine insulin 65 units every night. 9. Humulin regular insulin 15-30 units subcutaneous with meals t.i.d. 10. Losartan 100 mg daily. 11. Multivitamin daily. 12. Fish oil daily. 13. Vitamin D3 daily. 14. Lasix 40 mg daily. 15. Amlodipine 5 mg daily. FAMILY HISTORY: No inherited diseases. REVIEW OF SYSTEMS: There has been no cough, fever, chest pain, palpitations, or syncope. He has never required a paracentesis before, he states. He has never seen a liver specialist before. He has been unable to take a bath because of his large size, and has developed an itchy rash over his trunk, that he thinks is from poor hygiene. His PCP was Dr Garg and he is awaiting to be seen by new PCP, Dr Brady, in May 2020. A comprehensive review of systems was performed and the pertinent positives are listed, the rest are negative. PHYSICAL EXAMINATION GENERAL: Obese, middle-aged white male. He is in no distress, nearly supine in bed. VITAL SIGNS: Blood pressure 151/107, heart rate 120, in sinus tachycardia, afebrile, respiratory rate 30, room air saturation 99%. HEENT: Unremarkable. He has good dentition and moist oral mucosa. NECK: Obese and I cannot rule out JVD at a 20 degree upright angle. CHEST: Diminished breath sounds at both bases, but no rales or rhonchi are heard. HEART: Tachycardic with no murmur or rub. ABDOMEN: Very distended, moderately tense, nontender. Increased tympany present and probable fluid wave present but organs are not palpable to assess for organomegaly. He has a urinary Blunt catheter in place and his scrotum is red and very edematous. His penile shaft is edematous. EXTREMITIES: Legs have 4+ edema and he has pitting edema all the way up to his nipple line, 4+. The anterior shins have venous stasis discoloration changes. He has a fine, red, macular rash over his trunk and upper arms. NEUROLOGIC: Grossly intact. There is no asterixis. There is no nystagmus. LABORATORY DATA: Sodium 130, potassium 3.9, glucose 301. Normal magnesium and phosphorus. Normal BUN of 14 and creatinine 0.8. Troponin is 8.0, albumin 2.5, lipase 116. White blood count normal at 5.1, hemoglobin 13.0 with an MCV of 100 and platelet count normal at 181. INR mildly elevated at 1.3. Urinalysis had positive glucose, moderate occult blood, high urobilinogen and red blood cells, but minimal white blood cells and no bacteria. IMAGING: Chest x-ray showed underinflated lungs and no acute pulmonary disease. Pelvic CT showed marked ascites and generalized anasarca, also extensive scrotal edema, but no scrotal gas present. EKG: Sinus tachycardia at a rate of 122, low voltage in the limb leads, flat T waves in the limb leads. There is no old EKG available for comparison. IMPRESSION/DIAGNOSES 1. Anasarca. 2. Tense ascites. 3. Alcohol abuse. 4. Possible alcohol withdrawal, given that he stopped alcohol use 3 days ago and has tachycardia plus hypertension. 5. Possible pancreatitis with elevated lipase versus a phase reactant. There was no imaging of the upper abdomen, just pelvis. 6. Tachycardia. 7. Hypertension, uncontrolled. 8. Diabetes mellitus, on insulin. 9. Macrocytic anemia. 10. Hyponatremia. 11. Urinary obstruction. 12. Rash, possible contact dermatitis. PLAN: Admit patient to the ICU, on telemetry. Continue treating his anasarca with diuretics; he received a dose of IV Lasix in the ER. We will continue Lasix IV b.i.d. Follow I's and O's and daily weights. His low sodium appears to be hypervolemic hyponatremia. At present, we will start with just IV diuretics for treating that and not a free water restriction yet. Follow serum electrolytes closely. Obtain abdominal ultrasound to evaluate the liver and pancreas shaheen to perform therapeutic and diagnostic paracentesis. Continue with Librium, a dose was started in the ER on a scheduled basis and will order a CIWA protocol with IV Ativan p.r.n. withdrawal symptoms. Start him on oral thiamine daily and multivitamins. Follow his daily lipase level and there may need to perform CT imaging of this area depending on future lipase results. Resume his blood pressure medication for blood pressure control. Begin a carb-controlled diet, and resume his doses of insulin, and will also add sliding scale insulin from Accu-Chek results. Follow his CBC. Continue with the Blunt catheter, which is needed because of acute urinary obstruction related to penile edema, until there is significant decrease of edema. Start topical Hydrocortisone cream to for the rash, after a shower. DEEP VENOUS THROMBOSIS PROPHYLAXIS: Pharmacotherapy. CODE STATUS: FULL CODE. ATTESTATION: Patient is expected to be discharged or transferred to another facility within 96 hours: Yes. cc: Dr Garg, Dr Brady TD: 02/15/2020 19:09 MTDD
[2020-02-15] MEDS: FAMOTIDINE 20 MG TABLET PO SCH (21:05)
[2020-02-15] MEDS: buPROPion SR 150 MG TABLET PO SCH (21:05)
[2020-02-15] MEDS: METOPROLOL SUCCINATE 25 MG TABLET PO SCH (21:05)
[2020-02-15] MEDS: MAGNESIUM OXIDE 400 MG TABLET PO SCH (21:05)
[2020-02-15] MEDS: INSULIN GLARGINE 300 UNIT/3 ML PEN SUBQ SCH (21:07)
[2020-02-16] MEDS: SODIUM CHLORIDE FLUSH 0.9% 10 ML SYRINGE IVP SCH ×3 (00:20→17:07)
[2020-02-16] MEDS: chlordiazePOXIDE 25 MG CAPSULE PO SCH ×4 (00:20→17:18)
[2020-02-16] MEDS: MAGNESIUM OXIDE 400 MG TABLET PO SCH ×3 (00:20→12:22)
[2020-02-16 04:53] LABS: BASOPHILS # (AUTO) 0.1 10^3/uL (0.0-0.1); BASOPHILS % (AUTO) 1.9 %; EOSINOPHILS # (AUTO) 0.3 10^3/uL (0.0-0.7); EOSINOPHILS % (AUTO) 4.1 %; HGB - HEMOGLOBIN 11.6 g/dL (14.0-18.0); LYMPHOCYTES # (AUTO) 1.2 10^3/uL (1.5-3.5); LYMPHOCYTES % (AUTO) 18.7 %; MEAN CORPUSCULAR HEMOGLOBIN 34.2 pg (27.0-31.0); MEAN CORPUSCULAR VOLUME 100.6 fL (80.0-94.0); MEAN PLATELET VOLUME 10.3 fL (7.4-11.4); MONOCYTES % (AUTO) 16.4 %; NEUTROPHILS # (AUTO) 3.7 10^3/uL (1.5-6.6); NEUTROPHILS % (AUTO) 58.6 %; PLT - PLATELET COUNT 173 10^3/uL (130-450); RED BLOOD COUNT 3.39 10^6/uL (4.70-6.10); RED CELL DISTRIBUTION WIDTH 12.7 % (12.0-15.0); WHITE BLOOD COUNT 6.4 x10^3/uL (4.8-10.8)
[2020-02-16 05:09] LABS: ALBUMIN 2.1 g/dL (3.2-5.5); ALBUMIN/GLOBULIN RATIO 0.5 (1.0-2.2); BILIRUBIN,TOTAL 1.7 mg/dL (0.2-1.0); CALCIUM 8.5 mg/dL (8.5-10.3); CREATININE 0.8 mg/dL (0.6-1.2); MAGNESIUM 1.5 mg/dL (1.7-2.8); PHOSPHORUS 3.1 mg/dL (2.5-4.6); TOTAL PROTEIN 6.2 g/dL (6.7-8.2)
[2020-02-16 05:33] LABS: INR 1.4 (0.8-1.2); PT - PROTHROMBIN TIME 15.2 secs (9.9-12.6)
[2020-02-16] MEDS: FUROSEMIDE 40 MG/4 ML VIAL IVP SCH ×2 (06:18→14:01)
[2020-02-16] MEDS: SODIUM CHLORIDE FLUSH 0.9% 10 ML SYRINGE IVP PRN ×2 (06:19→14:04)
[2020-02-16] MEDS: INSULIN ASPART 300 UNIT/3 ML PEN SUBQ SCH ×5 (08:38→21:14)
[2020-02-16] MEDS: INSULIN REGULAR HUMAN 300 UNIT/3 ML VIAL SUBQ SCH ×2 (08:42→12:22)
[2020-02-16] MEDS ORDERED: LOSARTAN 50 MG TABLET PO SCH (09:00)
[2020-02-16] MEDS ORDERED: FLUTICASONE PROPIONATE 100 MCG IH SCH (09:00)
[2020-02-16] MEDS: METOPROLOL SUCCINATE 25 MG TABLET PO SCH ×2 (10:07→21:03)
[2020-02-16] MEDS: PRENATAL VITAMIN TABLET PO SCH (10:08)
[2020-02-16] MEDS: buPROPion SR 150 MG TABLET PO SCH ×2 (10:08→21:03)
[2020-02-16] MEDS: FAMOTIDINE 20 MG TABLET PO SCH ×2 (10:10→21:03)
[2020-02-16] MEDS: ASPIRIN EC 81 MG TABLET PO SCH (10:12)
[2020-02-16 10:13] LABS: HEMOGLOBIN A1c% 7.7 % (4.27-6.07)
[2020-02-16] MEDS: THIAMINE 100 MG TABLET PO SCH (10:13)
[2020-02-16] MEDS: ALBUTEROL NEB 2.5 MG/3 ML INH PRN ×2 (11:31→19:28)
[2020-02-16] MEDS: ENOXAPARIN 40 MG/0.4 ML SYRINGE SUBQ SCH (12:12)
--- NOTE | 2020-02-16 12:25 | PROVIDER PROGRESS NOTE ---
Assessment/Plan - Problem List (1) Hypotension Assessment/Plan: To receiving the morning IV Lasix and the 2 PM Lasix, his blood pressure dropped to 79/50. His paracentesis followed that therefore only 2 L were removed by my order, not 4 L. Will give volume replacement with IV albumin. We will decrease the iv Lasix dose and frequency. (2) Anasarca Assessment/Plan: He feels less swelling overall, his abdomen is overall less distended, the skin pitting edema has decreased from the nipple line down to his mid abdomen. Continue with IV twice daily Lasix. Follow I's and O's and daily weights. (3) Alcohol abuse Assessment/Plan: The patient has been started on daily oral thiamine, also on scheduled Librium to decrease alcohol withdrawal symptoms. Will request a social work consult once he is medically stable (4) Alcohol withdrawal Assessment/Plan: He is hypertension and tachycardia have resolved on his same home meds therefore he was going through withdrawal without evidence of tremors yesterday. He has been started on scheduled Librium to help with this. Continue with the CIWA protocol as well. (5) Ascites Assessment/Plan: Only the pelvis had imaging done [facility] and large ascites was seen. He has never had paracentesis. Paracentesis under ultrasound guidance is scheduled for today. Will send off studies from the fluid. Lovenox was on hold this morning in preparation for the paracentesis this afternoon. Also plan imaging of the liver and pancreas (6) Swelling of penis Assessment/Plan: This was felt to be causing obstruction of the urethra and why he could not urinate, which was his presenting complaint in the ER. Add Pyridium for his dysuria. His urinalysis did not show signs of bacteria or elevated WBC to start antibiotics for UTI. Plan to continue the Blunt until there is visibly less swelling of the penis (7) Swelling of the testicles Assessment/Plan: Continue with Lasix IV twice daily (8) Hyponatremia Assessment/Plan: This is minimally improved on his IV twice daily Lasix. We will now add a total fluid restriction per day of 2000 cc Aloe BMP daily. (9) Diabetes mellitus, insulin dependent (IDDM), uncontrolled Assessment/Plan: A1c was 7.7. We are continuing his Lantus dose and his regular insulin with meal dose. Sliding scale insulin added for Accu-Chek results and carb controlled diet started (10) Rash Assessment/Plan: Plan is for shower today (since he reported he could not reach all his areas to clean in a bathtub) and then to start hydrocortisone topical cream. (11) Wound of right leg Assessment/Plan: Wound MAC consult will be requested - Current Meds Current Meds: Current Medications Generic Name Dose Route Start Last Admin Trade Name Freq PRN Reason Stop Dose Admin Albuterol 2.5 mg 02/16/20 07:40 02/16/20 11:31 Albuterol Neb 2.5 Mg/3 Ml INH 2.5 mg RTQ4H PRN Administration Wheezing Aspirin 81 mg 02/16/20 09:00 02/16/20 10:12 Aspirin Ec 81 Mg Tablet PO 81 mg DAILY JOY Administration Bupropion HCl 150 mg 02/15/20 21:00 02/16/20 10:08 Bupropion Sr 150 Mg Tablet PO 150 mg BID JOY Administration Chlordiazepoxide HCl 25 mg 02/15/20 18:00 02/16/20 06:17 Chlordiazepoxide 25 Mg Capsule PO 25 mg Q6HR JOY Administration Enoxaparin Sodium 40 mg 02/16/20 09:00 02/16/20 12:12 Enoxaparin 40 Mg/0.4 Ml Syringe SUBQ Not Given DAILY JOY Famotidine 20 mg 02/15/20 21:00 02/16/20 10:10 Famotidine 20 Mg Tablet PO 20 mg BID JOY Administration Furosemide 40 mg 02/15/20 16:00 02/16/20 06:18 Furosemide 40 Mg/4 Ml Vial IVP 40 mg BIDDIURETIC JOY Administration Ibuprofen 600 mg 02/15/20 12:30 02/16/20 06:17 Ibuprofen 600 Mg Tablet PO 600 mg Q6HR PRN Administration Pain or Fever > 38C (100.4F) Insulin Aspart 1 - 9 unit 02/15/20 17:00 02/16/20 08:38 Insulin Aspart 300 Unit/3 Ml Pen SUBQ 3 unit 0800,1200,1700,2100 JOY Administration Protocol Insulin Glargine 65 unit 02/15/20 21:00 02/15/20 21:07 Insulin Glargine 300 Unit/3 Ml Pen SUBQ 65 unit HS JOY Administration Insulin Human Regular 0 unit 02/16/20 08:00 02/16/20 08:42 Insulin Regular Human 300 Unit/3 Ml Vial SUBQ Not Given TIDWM JOY Losartan Potassium 100 mg 02/16/20 09:00 02/16/20 10:07 Losartan 50 Mg Tablet PO 100 mg DAILY JOY Administration Metoprolol Succinate 25 mg 02/15/20 21:00 02/16/20 10:07 Metoprolol Succinate 25 Mg Tablet PO 25 mg BID JOY Administration Multivit/Folic Acid/Iron 1 tab 02/16/20 09:00 02/16/20 10:08 Vitamin Tablet PO 1 tab DAILY JOY Administration Sodium Chloride 10 ml 02/15/20 17:00 02/16/20 10:15 Sodium Chloride Flush 0.9% 10 Ml Syringe IVP 10 ml 0100,0900,1700 JOY Administration Sodium Chloride 10 ml 02/15/20 12:30 02/16/20 06:19 Sodium Chloride Flush 0.9% 10 Ml Syringe IVP 10 ml PRN PRN Administration NEEDED PER PROVIDER ORDERS Thiamine HCl 100 mg 02/16/20 09:00 02/16/20 10:13 Thiamine 100 Mg Tablet PO 100 mg DAILY JOY Administration - Lab Result Fish Bone Diagrams: 02/16/20 04:05 02/16/20 04:05 - Additional Planning My Orders: My Active Orders 02/15/20 12:30 Activity Orders [RC] Q2HR Daily Weight [RC] 0600 Blunt Insertion [RC] QSHIFT IO [RC] Q1HR IV Insert [RC] ONCE Initiate Bowel Care Protocol [RC] QSHIFT Initiate ICU Electrolyte Prot. [RC] .protocol Initiate Personal Care Protoco [RC] .protocol Initiate Pneumonia Vaccine Scr [RC] ONCE Turn and Reposition [RC] PRN Vital Signs [RC] Q1HR Ibuprofen [Motrin] 600 mg PO Q6HR PRN Sodium Chloride Flush 0.9% [Normal Saline Flush 0.9%] 10 ml IVP PRN PRN Code Status [OTHERS] Routine Condition of Patient [OTHERS] Routine DVT Prophylaxis [OTHERS] Routine 02/15/20 12:36 Telemetry- [RC] Q4HR 02/15/20 12:37 Oxygen Therapy [RC] .PRN 02/15/20 12:40 Initiate Line Care Protocol [RC] QSHIFT 02/15/20 12:41 Blood Glucose Checks - Eating [RC] 0800,1200,1700,2100 Initiate Hypoglycemia Protocol [RC] .protocol 02/15/20 12:43 Abdominal Paracentesis [US] Routine 02/15/20 14:53 Nutrition Consult [CONS] Routine 02/15/20 15:54 ELLIE - HELADIO Score Card [RC] Q4HR LORazepam INJ [Ativan Inj (Vial)] 1 mg IVP Q30M PRN 02/15/20 16:00 FUROSEMIDE INJ 40mg VIAL [LASIX INJ 40 mg VIAL] 40 mg IVP BIDDIURETIC 02/15/20 16:43 COVID-19 REFERENCE TEST Routine 02/15/20 17:00 Insulin Aspart [NovoLOG] 1 - 9 unit SUBQ 0800,1200,1700,2100 Sodium Chloride Flush 0.9% [Normal Saline Flush 0.9%] 10 ml IVP 0100,0900,1700 02/15/20 18:00 chlordiazePOXIDE [Librium] 25 mg PO Q6HR 02/15/20 21:00 Famotidine [Pepcid] 20 mg PO BID Insulin Glargine [Lantus Solostar] 65 unit SUBQ HS Metoprolol Succinate [Toprol Xl] 25 mg PO BID buPROPion [Wellbutrin Sr] 150 mg PO BID 02/16/20 07:40 Albuterol 2.5 mg INH RTQ4H PRN 02/16/20 08:00 Insulin Regular Human [Humulin R] 0 unit SUBQ TIDWM 02/16/20 09:00 Aspirin EC [Ecotrin] 81 mg PO DAILY Enoxaparin [Lovenox] 40 mg SUBQ DAILY Losartan [Cozaar] 100 mg PO DAILY Vitamin [Trinatal Rx 1] 1 tab PO DAILY Thiamine [Vitamin B-1] 100 mg PO DAILY 02/16/20 11:23 RT [Nebulizer/MDI Tx.] [RC] .BID/ Q4 PRN 02/16/20 12:18 Shower [RC] ONCE 02/16/20 14:00 Phenazopyridine [Pyridium] 100 mg PO TID 02/16/20 19:00 Budesonide [Pulmicort] 0.5 mg INH RTBID 02/17/20 05:00 CBC - COMP BLD CT W/AUTO DIFF [HEME] DAILYLAB COMPREHENSIVE METABOLIC PANEL [CHEM] DAILYLAB FOLATE [IAI] DAILYLAB IRON TIBC PANEL [CHEM] DAILYLAB VITAMIN B12 [IAI] DAILYLAB 02/17/20 08:00 Shower [RC] PRN 02/18/20 05:00 CBC - COMP BLD CT W/AUTO DIFF [HEME] DAILYLAB COMPREHENSIVE METABOLIC PANEL [CHEM] DAILYLAB 02/19/20 05:00 CBC - COMP BLD CT W/AUTO DIFF [HEME] DAILYLAB COMPREHENSIVE METABOLIC PANEL [CHEM] DAILYLAB Subjective - Subjective Patient Reports: Feeling Better, Other (Had dysuria all morning.) Objective Vital Signs: Vital Signs - 24 hr 02/15/20 02/15/20 02/15/20 13:40 13:51 15:00 Temperature 37.4 C Heart Rate Heart Rate [ 118 H 118 H Apical] Respiratory 26 H 21 Rate Blood Pressure 151/107 H 150/91 H [Left Brachial artery] O2 Saturation 99 97 02/15/20 02/15/20 02/15/20 17:00 19:00 20:00 Temperature 37.6 C Heart Rate Heart Rate [ 121 H 119 H 119 H Apical] Respiratory 25 H 12 27 H Rate Blood Pressure 148/94 H 133/87 H 152/96 H [Left Brachial artery] O2 Saturation 94 97 98 02/15/20 02/15/20 02/15/20 21:00 22:00 23:00 Temperature Heart Rate Heart Rate [ 118 H 116 H 111 H Apical] Respiratory 26 H 28 H 25 H Rate Blood Pressure 158/94 H 136/85 H 135/85 H [Left Brachial artery] O2 Saturation 96 94 95 02/16/20 02/16/20 02/16/20 00:00 01:00 02:10 Temperature 37.6 C Heart Rate Heart Rate [ 108 H 109 H 105 H Apical] Respiratory 18 22 15 Rate Blood Pressure 120/78 160/95 H 132/81 H [Left Brachial artery] O2 Saturation 97 97 98 02/16/20 02/16/20 02/16/20 03:00 04:00 05:00 Temperature 37.3 C Heart Rate Heart Rate [ 102 H 100 97 Apical] Respiratory 29 H 21 28 H Rate Blood Pressure 115/74 108/64 104/75 [Left Brachial artery] O2 Saturation 97 97 96 02/16/20 02/16/20 02/16/20 06:15 07:00 07:54 Temperature 37.1 C Heart Rate Heart Rate [ 101 H 97 97 Apical] Respiratory 16 25 H 24 Rate Blood Pressure 125/82 H 95/60 109/74 [Left Brachial artery] O2 Saturation 96 96 100 02/16/20 02/16/20 02/16/20 09:00 10:00 11:00 Temperature Heart Rate Heart Rate [ 100 99 96 Apical] Respiratory 25 H 29 H 19 Rate Blood Pressure 104/66 108/68 103/66 [Left Brachial artery] O2 Saturation 91 L 98 94 02/16/20 02/16/20 11:19 11:32 Temperature 37.1 C Heart Rate 98 80 Heart Rate [ Apical] Respiratory 19 16 Rate Blood Pressure [Left Brachial artery] O2 Saturation 93 Oxygen O2 Source Room air I&O (Last 24 Hrs): Intake and Output Totals x24h 02/14/20 02/15/20 02/16/20 23:59 23:59 23:59 Intake Total 480 1140 Output Total 1355 432 Balance -875 708 General: Alert, Oriented x3 HEENT: Mucous membr. moist/pink, Other (He is edentulous) Neck: Supple Neuro: Alert, Non Focal, Other (No tremor, no nystagmus) Cardiovascular: Regular rate, No murmurs Respiratory: No respiratory distress Abdomen: Other (Moderately distended, less tense, nontender) Genitourinary: Other (Swollen and red testicles, Swollen shaft of penis, Blunt in place) Extremities: Other (4+ edema to mid-abdomen (down from level of nipple line)) - Results Results: Laboratory Results WBC 6.4 x10^3/uL (4.8-10.8) 02/16/20 04:05 RBC 3.39 10^6/uL (4.70-6.10) L 02/16/20 04:05 Hgb 11.6 g/dL (14.0-18.0) L 02/16/20 04:05 Hct 34.1 % (42.0-52.0) L 02/16/20 04:05 MCV 100.6 fL (80.0-94.0) H 02/16/20 04:05 MCH 34.2 pg (27.0-31.0) H 02/16/20 04:05 MCHC 34.0 g/dL (32.0-36.0) 02/16/20 04:05 RDW 12.7 % (12.0-15.0) 02/16/20 04:05 Plt Count 173 10^3/uL (130-450) 02/16/20 04:05 MPV 10.3 fL (7.4-11.4) 02/16/20 04:05 Neut # (Auto) 3.7 10^3/uL (1.5-6.6) 02/16/20 04:05 Lymph # (Auto) 1.2 10^3/uL (1.5-3.5) L 02/16/20 04:05 [place] # (Auto) 1.0 10^3/uL (0.0-1.0) 02/16/20 04:05 Eos # (Auto) 0.3 10^3/uL (0.0-0.7) 02/16/20 04:05 Baso # (Auto) 0.1 10^3/uL (0.0-0.1) 02/16/20 04:05 Absolute Nucleated RBC 0.00 x10^3/uL 02/16/20 04:05 Nucleated RBC % 0.0 /100WBC 02/16/20 04:05 PT 15.2 secs (9.9-12.6) H 02/16/20 04:05 INR 1.4 (0.8-1.2) H 02/16/20 04:05 Sodium 133 mmol/L (135-145) L 02/16/20 04:05 Potassium 3.6 mmol/L (3.5-5.0) 02/16/20 04:05 Chloride 97 mmol/L (101-111) L 02/16/20 04:05 Carbon Dioxide 27 mmol/L (21-32) 02/16/20 04:05 Anion Gap 9.0 (6-13) 02/16/20 04:05 BUN 19 mg/dL (6-20) 02/16/20 04:05 Creatinine 0.8 mg/dL (0.6-1.2) 02/16/20 04:05 Estimated GFR (MDRD) 102 (>89) 02/16/20 04:05 Glucose 229 mg/dL (70-100) H 02/16/20 04:05 POC Whole Bld Glucose 206 mg/dL (70 - 100) H 02/16/20 11:52 Estimat Average Glucose 174 mg/dL (70-100) H 02/16/20 04:05 Hemoglobin A1c % 7.7 % (4.27-6.07) H 02/16/20 04:05 Calcium 8.5 mg/dL (8.5-10.3) 02/16/20 04:05 Phosphorus 3.1 mg/dL (2.5-4.6) 02/16/20 04:05 Magnesium 1.5 mg/dL (1.7-2.8) L 02/16/20 04:05 Total Bilirubin 1.7 mg/dL (0.2-1.0) H 02/16/20 04:05 GGT 166 IU/L (8-55) H 02/16/20 04:05 AST 45 IU/L (10-42) H 02/16/20 04:05 ALT 20 IU/L (10-60) 02/16/20 04:05 Alkaline Phosphatase 73 IU/L (42-121) 02/16/20 04:05 Troponin I High Sens 8.0 ng/L (2.3-19.7) 02/15/20 10:30 Troponin I High Sens 8.7 ng/L (2.3-19.7) 02/15/20 10:30 C-Reactive Protein 5.7 mg/dL (0-1.0) H 02/15/20 10:54 Total Protein 6.2 g/dL (6.7-8.2) L 02/16/20 04:05 Albumin 2.1 g/dL (3.2-5.5) L 02/16/20 04:05 Globulin 4.1 g/dL (2.1-4.2) 02/16/20 04:05 Albumin/Globulin Ratio 0.5 (1.0-2.2) L 02/16/20 04:05 Lipase 116 U/L (22-51) H 02/15/20 10:30 Urine Color YELLOW 02/15/20 12:00 Urine Clarity HAZY (CLEAR) 02/15/20 12:00 Urine pH 6.0 PH (5.0-7.5) 02/15/20 12:00 Ur Specific Rives 1.015 (1.002-1.030) 02/15/20 12:00 Urine Protein TRACE mg/dL (NEGATIVE) 02/15/20 12:00 Urine Glucose (UA) 500 mg/dL (NEGATIVE) H 02/15/20 12:00 Urine Ketones NEGATIVE mg/dL (NEGATIVE) 02/15/20 12:00 Urine Occult Blood MODERATE (NEGATIVE) H 02/15/20 12:00 Urine Nitrite NEGATIVE (NEGATIVE) 02/15/20 12:00 Urine Bilirubin NEGATIVE (NEGATIVE) 02/15/20 12:00 Urine Urobilinogen 4 E.U./dL (NORMAL) H 02/15/20 12:00 Ur Leukocyte Esterase NEGATIVE (NEGATIVE) 02/15/20 12:00 Urine RBC 6-10 /HPF (0-5) H 02/15/20 12:00 Urine WBC 0-3 /HPF (0-3) 02/15/20 12:00 Ur Squamous Epith Cells NONE SEEN (<= Few) 02/15/20 12:00 Urine Bacteria None Seen /HPF (None Seen) 02/15/20 12:00 Ur Microscopic Review INDICATED 02/15/20 12:00 Nasal Screen MRSA (PCR) NEGATIVE (NEGATIVE) 02/15/20 16:43
[2020-02-16] MEDS ORDERED: INSULIN REGULAR HUMAN 300 UNIT/3 ML VIAL SUBQ SCH (12:28)
[2020-02-16] MEDS: PHENAZOPYRIDINE 100 MG TABLET PO SCH ×2 (14:02→22:39)
[2020-02-16] MEDS ORDERED: ALBUMIN 25% 12.5 GM/50 ML VIAL IV STA (15:12)
--- NOTE | 2020-02-16 16:12 | Ultrasound Report ---
PROCEDURE: Abdominal Paracentesis INDICATIONS: Anasarca and ascites, alcohol abuse TECHNIQUE: The indications, alternatives, benefits, risks, and complications of the procedure were explained to the patient. Written informed consent was obtained and placed in the chart. The abdomen and pelvis were examined sonographically, and an appropriate site was chosen for paracentesis. The skin was pre pared and draped in the usual sterile fashion, and 1% lidocaine was infiltrated from the skin down th rough the peritoneal surface. A 19-gauge catheter-covered needle was then introduced into the perito valerie space, the catheter was advanced and the needle was withdrawn, and thereafter peritoneal fluid w as withdrawn. The catheter was then removed and a dressing was applied. The fluid was discarded if the clinician did not order diagnostic testing of the fluid. COMPARISON: None FINDINGS: Access site: Right lower quadrant Needle: One-Step centesis catheter with introducer needle. Fluid volume and description: Clear yellow fluid. 2 L. Fluid sent for diagnostic testing: Yes Medications: 1% lidocaine for local anaesthesia. Complications: None. IMPRESSION: Successful ultrasound-guided paracentesis. Reviewed by: Raulito Vega on 02/16/2020 4:11 PM PST Approved by: Raulito Vega on 02/16/2020 4:11 PM PST Station ID: [id number]
[2020-02-16] MEDS: BUDESONIDE 0.5 MG/2 ML NEB INH SCH (19:29)
[2020-02-16] MEDS: INSULIN GLARGINE 300 UNIT/3 ML PEN SUBQ SCH (21:11)
[2020-02-16] MEDS: HYDROCORTISONE 1% CREAM 28 GM TUBE TOP SCH (21:11)
[2020-02-16 21:39] LABS: BF CLARITY CLEAR; BF COLOR YELLOW; BF SOURCE PERITONEAL; CC,BF RBC 74 /mm^3
[2020-02-16 21:51] LABS: LYMPHOCYTES %,BODY FLUID 38 %; MONOCYTES %,BODY FLUID 11 %
[2020-02-16 21:52] LABS: MACROPHAGES %,BODY FLUID 18 %; MESOTHELIAL %, BF 27 %
[2020-02-17] MEDS: chlordiazePOXIDE 25 MG CAPSULE PO SCH ×3 (00:11→12:53)
[2020-02-17] MEDS: SODIUM CHLORIDE FLUSH 0.9% 10 ML SYRINGE IVP SCH ×4 (00:15→22:40)
[2020-02-17 04:48] LABS: BASOPHILS # (AUTO) 0.1 10^3/uL (0.0-0.1); BASOPHILS % (AUTO) 1.5 %; EOSINOPHILS # (AUTO) 0.3 10^3/uL (0.0-0.7); EOSINOPHILS % (AUTO) 3.9 %; HGB - HEMOGLOBIN 11.7 g/dL (14.0-18.0); LYMPHOCYTES # (AUTO) 1.3 10^3/uL (1.5-3.5); LYMPHOCYTES % (AUTO) 17.1 %; MEAN CORPUSCULAR HEMOGLOBIN 33.5 pg (27.0-31.0); MEAN CORPUSCULAR HGB CONC 32.5 g/dL (32.0-36.0); MEAN CORPUSCULAR VOLUME 103.2 fL (80.0-94.0); MEAN PLATELET VOLUME 9.9 fL (7.4-11.4); MONOCYTES # (AUTO) 0.8 10^3/uL (0.0-1.0); MONOCYTES % (AUTO) 10.9 %; NEUTROPHILS # (AUTO) 4.9 10^3/uL (1.5-6.6); NEUTROPHILS % (AUTO) 66.3 %; PLT - PLATELET COUNT 165 10^3/uL (130-450); RED BLOOD COUNT 3.49 10^6/uL (4.70-6.10); RED CELL DISTRIBUTION WIDTH 12.9 % (12.0-15.0); WHITE BLOOD COUNT 7.4 x10^3/uL (4.8-10.8)
[2020-02-17 05:30] LABS: FOLATE 10.4 ng/mL (5.90 - >24.8)
[2020-02-17 05:33] LABS: ALBUMIN 2.3 g/dL (3.2-5.5); ALBUMIN/GLOBULIN RATIO 0.6 (1.0-2.2); BILIRUBIN,TOTAL 1.8 mg/dL (0.2-1.0); CALCIUM 8.4 mg/dL (8.5-10.3); CREATININE 1.1 mg/dL (0.6-1.2); TOTAL PROTEIN 5.9 g/dL (6.7-8.2)
[2020-02-17] MEDS: PHENAZOPYRIDINE 100 MG TABLET PO SCH ×3 (06:21→21:02)
[2020-02-17] MEDS: BUDESONIDE 0.5 MG/2 ML NEB INH SCH ×2 (07:44→19:42)
[2020-02-17] MEDS: ALBUTEROL NEB 2.5 MG/3 ML INH PRN ×2 (07:44→19:42)
[2020-02-17] MEDS: ASPIRIN EC 81 MG TABLET PO SCH (07:54)
[2020-02-17] MEDS: PRENATAL VITAMIN TABLET PO SCH (07:54)
[2020-02-17] MEDS: FAMOTIDINE 20 MG TABLET PO SCH ×2 (07:54→21:02)
[2020-02-17] MEDS: buPROPion SR 150 MG TABLET PO SCH ×2 (07:55→21:02)
[2020-02-17] MEDS: ENOXAPARIN 40 MG/0.4 ML SYRINGE SUBQ SCH (07:55)
[2020-02-17] MEDS: FUROSEMIDE 20 MG/2 ML VIAL IVP SCH (07:55)
[2020-02-17] MEDS: INSULIN ASPART 300 UNIT/3 ML PEN SUBQ SCH ×7 (07:58→21:08)
[2020-02-17] MEDS: HYDROCORTISONE 1% CREAM 28 GM TUBE TOP SCH ×2 (08:05→21:08)
[2020-02-17] MEDS ORDERED: IBUPROFEN 600 MG TABLET PO PRN (08:42)
--- NOTE | 2020-02-17 08:49 | PROVIDER PROGRESS NOTE ---
Assessment/Plan - Problem List (1) Hypotension Assessment/Plan: BP has been "soft" at 90-100 systolic. He has lost 2.5 kg since admission, from 2L removed by paracentesis and from diuresing. The Lasix 40 mg iv bid will be decreased to 20 mg iv daily. Stop the daily Losartan Decrease the Metoprolol Succ 25 mg bid to just at bedtime. Remain in ICU today due to the low BP. He may be OOB to chair with legs elevated however. (2) Anasarca Assessment/Plan: He feels less swelling overall, his abdomen is overall less distended, the skin pitting edema has decreased from the nipple line down to his umbilical line yesterday and down to levl of hips today.. Continue with IV daily Lasix. Follow BMP and Mg daily, while iv diuresing. Follow I's and O's and daily weights. (3) Ascites Assessment/Plan: Only the pelvis had imaging done at admission and large ascites was seen. He had never had paracentesis before yesterday Paracentesis under ultrasound guidance was done without complications yesterday. Only 2L were removed, not the planned 4L, due to hypotension, The first studies from the fluid show no WBCs and neg gram stain Planning imaging of the liver and pancreas eventually. Will request another 2L therapeutic paracentesis be done today, when BP better and while he is still in ICU today. (4) Anemia Qualifiers: Anemia type: iron deficiency Assessment/Plan: Despite diuresis, his Hgb is 11. B12 and Folate levels are normal, but Iron stores are all low. Will start oral Iron replacemant. Will check stool guaic, as he does have elevated INR slightly, from poor liver synthetic function. Follow CBC daily. (5) Alcohol abuse Assessment/Plan: The patient has been started on daily oral thiamine, also on scheduled Librium Will request a consult regarding alcohol abuse, as he is clinically stabilized. (6) Alcohol withdrawal Assessment/Plan: At admission he was hypertensive and tachycardic but had no tremor, no nystagmus. The impression was that he was having mild alcohol withdrawal, since he had stopped ingesting beer 3 days previously. He is on scheduled Librium 25 mg every 6 hours and also on a CIWA protocol and prn IV Ativan, which she has not needed. We will slowly begin to taper down the Librium over the next several days, since he is describing feeling more fatigued today. (7) Swelling of penis Assessment/Plan: This was felt to be causing obstruction of the urethra and why he could not urinate, which was his presenting complaint in the ER. Added Pyridium yesterday for his dysuria. His urinalysis did not show signs of UTI. Plan to continue the Blunt until there is visibly less swelling of the penis. Follow I's and O's closely. (8) Swelling of the testicles Assessment/Plan: Continue with Lasix IV daily and a sling, if needed. (9) Hyponatremia Assessment/Plan: This is hypervolemic hyponatremia. It has been exacerbated by beer Poto edna. He is on IV diuretics. A total fluid restriction of 2000 cc/day has also been started yesterday. Follow BMP daily. (10) Diabetes mellitus, insulin dependent (IDDM), uncontrolled Assessment/Plan: A1c was 7.7. We are continuing his Lantus dose and his regular insulin with meal dose. Sliding scale insulin added for Accu-Chek results and carb controlled diet started (11) Rash Assessment/Plan: This appeared to be contact dermatitis. Plan was for shower yesterday (since he reported he could not reach all his areas to clean in a bathtub) and then to start hydrocortisone topical cream bid. (12) Wound of right leg Assessment/Plan: I spoke to the wound MAC nurse yesterday, and he will be seen in consult by the Wound team today. - Current Meds Current Meds: Current Medications Generic Name Dose Route Start Last Admin Trade Name Freq PRN Reason Stop Dose Admin Albuterol 2.5 mg 02/16/20 07:40 02/17/20 07:44 Albuterol Neb 2.5 Mg/3 Ml INH 2.5 mg RTQ4H PRN Administration Wheezing Aspirin 81 mg 02/16/20 09:00 02/17/20 07:54 Aspirin Ec 81 Mg Tablet PO 81 mg DAILY JOY Administration Budesonide 0.5 mg 02/16/20 19:00 02/17/20 07:44 Budesonide 0.5 Mg/2 Ml Neb INH 0.5 mg RTBID JOY Administration Bupropion HCl 150 mg 02/15/20 21:00 02/17/20 07:55 Bupropion Sr 150 Mg Tablet PO 150 mg BID JOY Administration Chlordiazepoxide HCl 25 mg 02/15/20 18:00 02/17/20 06:19 Chlordiazepoxide 25 Mg Capsule PO 25 mg Q6HR JOY Administration Enoxaparin Sodium 40 mg 02/16/20 09:00 02/17/20 07:55 Enoxaparin 40 Mg/0.4 Ml Syringe SUBQ 40 mg DAILY JOY Administration Famotidine 20 mg 02/15/20 21:00 02/17/20 07:54 Famotidine 20 Mg Tablet PO 20 mg BID JOY Administration Furosemide 20 mg 02/17/20 09:00 02/17/20 07:55 Furosemide 20 Mg/2 Ml Vial IVP 20 mg DAILY JOY Administration Hydrocortisone 1 applic 02/16/20 21:00 02/17/20 08:05 Hydrocortisone 1% Cream 28 Gm Tube TOP Not Given BID JOY Insulin Aspart 15 unit 02/16/20 17:00 02/17/20 08:04 Insulin Aspart 300 Unit/3 Ml Pen SUBQ 15 unit TIDWM [facility] Administration Insulin Aspart 2 - 10 unit 02/16/20 21:00 02/17/20 07:58 Insulin Aspart 300 Unit/3 Ml Pen SUBQ Not Given 0800,1200,1700,2100 [facility] Protocol Insulin Glargine 65 unit 02/15/20 21:00 02/16/20 21:11 Insulin Glargine 300 Unit/3 Ml Pen SUBQ 65 unit HS [facility] Administration Phenazopyridine HCl 100 mg 02/16/20 14:00 02/17/20 06:21 Phenazopyridine 100 Mg Tablet PO 100 mg TID [facility] Administration Multivit/Folic Acid/Iron 1 tab 02/16/20 09:00 02/17/20 07:54 Vitamin Tablet PO 1 tab DAILY JOY Administration Sodium Chloride 10 ml 02/15/20 17:00 02/17/20 07:56 Sodium Chloride Flush 0.9% 10 Ml Syringe IVP 10 ml 0100,0900,1700 JOY Administration Sodium Chloride 10 ml 02/15/20 12:30 02/16/20 14:04 Sodium Chloride Flush 0.9% 10 Ml Syringe IVP 10 ml PRN PRN Administration NEEDED PER PROVIDER ORDERS Thiamine HCl 100 mg 02/16/20 09:00 02/16/20 10:13 Thiamine 100 Mg Tablet PO 100 mg DAILY JOY Administration - Lab Result Fish Bone Diagrams: 02/17/20 04:20 02/17/20 04:20 - Additional Planning My Orders: My Active Orders 02/16/20 09:00 Aspirin EC [Ecotrin] 81 mg PO DAILY Enoxaparin [Lovenox] 40 mg SUBQ DAILY Vitamin [Trinatal Rx 1] 1 tab PO DAILY Thiamine [Vitamin B-1] 100 mg PO DAILY 02/16/20 11:23 RT [Nebulizer/MDI Tx.] [RC] .BID/ Q4 PRN 02/16/20 12:18 Shower [RC] ONCE 02/16/20 14:00 Phenazopyridine [Pyridium] 100 mg PO TID 02/16/20 15:30 CUL,BODY FLUID(AEROBIC) [RM] Urgent 02/16/20 15:40 Miscellaneous Laboratory Order [LAB] Urgent 02/16/20 17:00 Insulin Aspart [NovoLOG] 15 unit SUBQ TIDWM 02/16/20 19:00 Budesonide [Pulmicort] 0.5 mg INH RTBID 02/16/20 21:00 Hydrocortisone 1% Cream [Hydrocortisone] 1 applic TOP BID Insulin Aspart [NovoLOG] 2 - 10 unit SUBQ 0800,1200,1700,2100 02/16/20 21:35 Min Oil/Dimeth/Coconut Oil Crm [Cavilon] 1 applic TOP PRN PRN 02/17/20 05:00 LIPASE [CHEM] Routine MAGNESIUM [CHEM] Routine 02/17/20 08:00 Shower [RC] PRN 02/17/20 08:41 Miscellaenous Nursing Order [RC] QSHIFT 02/17/20 08:42 Ibuprofen [Motrin] 600 mg PO Q8HR PRN 02/17/20 09:00 Cholecalciferol (Vitamin D3) [Vitamin D3] 2,000 unit PO DAILY FUROSEMIDE INJ 20mg VIAL [LASIX INJ 20mg VIAL] 20 mg IVP DAILY Multivitamin W/Minerals [Theragran M] 1 tab PO DAILY [place]-3S/Dha/Epa/Fish Oil [Fish Oil [place]-3 Softgel] 1 cap ORAL DAILY 02/17/20 21:00 Metoprolol Succinate [Toprol Xl] 25 mg PO QPM 02/18/20 05:00 CBC - COMP BLD CT W/AUTO DIFF [HEME] DAILYLAB COMPREHENSIVE METABOLIC PANEL [CHEM] DAILYLAB MAGNESIUM [CHEM] DAILYLAB 02/19/20 05:00 CBC - COMP BLD CT W/AUTO DIFF [HEME] DAILYLAB COMPREHENSIVE METABOLIC PANEL [CHEM] DAILYLAB MAGNESIUM [CHEM] DAILYLAB 02/20/20 05:00 MAGNESIUM [CHEM] DAILYLAB Subjective - Subjective Patient Reports: Feeling Better, Resting Comfortably, Fatigue (Patient reports he was "up all night because of dysuria" and is fatigued today) Objective Vital Signs: Vital Signs - 24 hr 02/16/20 02/16/20 02/16/20 09:00 10:00 11:00 Temperature Heart Rate Heart Rate [ 100 99 96 Apical] Heart Rate [ Monitoring electrodes] Respiratory 25 H 29 H 19 Rate Blood Pressure 104/66 108/68 103/66 [Left Brachial artery] O2 Saturation 91 L 98 94 02/16/20 02/16/20 02/16/20 11:19 11:32 12:00 Temperature 37.1 C 36.3 C L Heart Rate 98 80 Heart Rate [ Apical] Heart Rate [ 84 Monitoring electrodes] Respiratory 19 16 21 Rate Blood Pressure 110/85 H [Left Brachial artery] O2 Saturation 93 96 02/16/20 02/16/20 02/16/20 13:00 14:24 14:45 Temperature Heart Rate Heart Rate [ Apical] Heart Rate [ 83 83 82 Monitoring electrodes] Respiratory 24 23 Rate Blood Pressure 111/64 82/56 L 80/51 L [Left Brachial artery] O2 Saturation 93 93 02/16/20 02/16/20 02/16/20 15:00 15:21 15:56 Temperature 36.9 C Heart Rate Heart Rate [ Apical] Heart Rate [ 81 80 79 Monitoring electrodes] Respiratory 15 28 H Rate Blood Pressure 70/50 L 102/64 111/73 [Left Brachial artery] O2 Saturation 94 98 02/16/20 02/16/20 02/16/20 17:32 18:00 19:00 Temperature 36.8 C Heart Rate Heart Rate [ Apical] Heart Rate [ 82 84 81 Monitoring electrodes] Respiratory 17 18 Rate Blood Pressure 132/86 H 104/69 104/69 [Left Brachial artery] O2 Saturation 02/16/20 02/16/20 02/16/20 19:34 20:00 21:00 Temperature Heart Rate 81 Heart Rate [ Apical] Heart Rate [ 83 84 Monitoring electrodes] Respiratory 26 H 24 25 H Rate Blood Pressure 100/66 102/60 [Left Brachial artery] O2 Saturation 95 02/16/20 02/16/20 02/17/20 22:00 23:00 00:00 Temperature Heart Rate Heart Rate [ 85 Apical] Heart Rate [ 85 84 83 Monitoring electrodes] Respiratory 24 19 20 Rate Blood Pressure 114/62 171/78 H 121/70 [Left Brachial artery] O2 Saturation 95 02/17/20 02/17/20 02/17/20 01:00 02:00 03:00 Temperature Heart Rate Heart Rate [ Apical] Heart Rate [ 81 81 78 Monitoring electrodes] Respiratory 12 24 36 H Rate Blood Pressure 90/60 106/57 L 107/64 [Left Brachial artery] O2 Saturation 02/17/20 02/17/20 02/17/20 03:51 05:00 06:00 Temperature 36.8 C Heart Rate Heart Rate [ Apical] Heart Rate [ 79 78 75 Monitoring electrodes] Respiratory 17 19 20 Rate Blood Pressure 110/68 108/62 [Left Brachial artery] O2 Saturation 96 02/17/20 02/17/20 02/17/20 07:00 07:45 08:00 Temperature Heart Rate 92 Heart Rate [ Apical] Heart Rate [ 74 96 Monitoring electrodes] Respiratory 25 H 18 22 Rate Blood Pressure 94/67 92/65 [Left Brachial artery] O2 Saturation Oxygen O2 Source Room air I&O (Last 24 Hrs): Intake and Output Totals x24h 02/15/20 02/16/20 02/17/20 23:59 23:59 23:59 Intake Total 480 1190 240 Output Total 1355 3037 360 [facility] -[phone] -120 General: Alert, Oriented x3 HEENT: Atraumatic, EOMI Neck: Supple, No JVD Neuro: Alert, Non Focal Cardiovascular: Regular rate, No murmurs Respiratory: No respiratory distress, Breath sounds nml Abdomen: Other (Moderately distended, moderately soft, nontender) Genitourinary: Other (Moderately edematous penile shaft and testicles, less than yesterday. Blunt in place) Extremities: Other (3+ pitting edema to level of hips) - Results Results: Laboratory Results WBC 7.4 x10^3/uL (4.8-10.8) 02/17/20 04:20 RBC 3.49 10^6/uL (4.70-6.10) L 02/17/20 04:20 Hgb 11.7 g/dL (14.0-18.0) L 02/17/20 04:20 Hct 36.0 % (42.0-52.0) L 02/17/20 04:20 MCV 103.2 fL (80.0-94.0) H 02/17/20 04:20 MCH 33.5 pg (27.0-31.0) H 02/17/20 04:20 MCHC 32.5 g/dL (32.0-36.0) 02/17/20 04:20 RDW 12.9 % (12.0-15.0) 02/17/20 04:20 Plt Count 165 10^3/uL (130-450) 02/17/20 04:20 MPV 9.9 fL (7.4-11.4) 02/17/20 04:20 Neut # (Auto) 4.9 10^3/uL (1.5-6.6) 02/17/20 04:20 Lymph # (Auto) 1.3 10^3/uL (1.5-3.5) L 02/17/20 04:20 [place] # (Auto) 0.8 10^3/uL (0.0-1.0) 02/17/20 04:20 Eos # (Auto) 0.3 10^3/uL (0.0-0.7) 02/17/20 04:20 Baso # (Auto) 0.1 10^3/uL (0.0-0.1) 02/17/20 04:20 Absolute Nucleated RBC 0.00 x10^3/uL 02/17/20 04:20 Nucleated RBC % 0.0 /100WBC 02/17/20 04:20 PT 15.2 secs (9.9-12.6) H 02/16/20 04:05 INR 1.4 (0.8-1.2) H 02/16/20 04:05 Sodium 132 mmol/L (135-145) L 02/17/20 04:20 Potassium 3.6 mmol/L (3.5-5.0) 02/17/20 04:20 Chloride 94 mmol/L (101-111) L 02/17/20 04:20 Carbon Dioxide 28 mmol/L (21-32) 02/17/20 04:20 Anion Gap 10.0 (6-13) 02/17/20 04:20 BUN 22 mg/dL (6-20) H 02/17/20 04:20 Creatinine 1.1 mg/dL (0.6-1.2) 02/17/20 04:20 Estimated GFR (MDRD) 71 (>89) L 02/17/20 04:20 Glucose 123 mg/dL (70-100) H 02/17/20 04:20 POC Whole Bld Glucose 98 mg/dL (70 - 100) 02/17/20 07:57 Estimat Average Glucose 174 mg/dL (70-100) H 02/16/20 04:05 Hemoglobin A1c % 7.7 % (4.27-6.07) H 02/16/20 04:05 Calcium 8.4 mg/dL (8.5-10.3) L 02/17/20 04:20 Phosphorus 3.1 mg/dL (2.5-4.6) 02/16/20 04:05 Magnesium 1.5 mg/dL (1.7-2.8) L 02/16/20 04:05 Iron 37 ug/dL (45-182) L 02/17/20 04:20 TIBC 207 ug/dL (250-450) L 02/17/20 04:20 % Saturation 18 % (20-50) L 02/17/20 04:20 Transferrin 148 mg/dL (180-329) L 02/17/20 04:20 Total Bilirubin 1.8 mg/dL (0.2-1.0) H 02/17/20 04:20 GGT 166 IU/L (8-55) H 02/16/20 04:05 AST 44 IU/L (10-42) H 02/17/20 04:20 ALT 20 IU/L (10-60) 02/17/20 04:20 Alkaline Phosphatase 73 IU/L (42-121) 02/17/20 04:20 Troponin I High Sens 8.0 ng/L (2.3-19.7) 02/15/20 10:30 Troponin I High Sens 8.7 ng/L (2.3-19.7) 02/15/20 10:30 C-Reactive Protein 5.7 mg/dL (0-1.0) H 02/15/20 10:54 Total Protein 5.9 g/dL (6.7-8.2) L 02/17/20 04:20 Albumin 2.3 g/dL (3.2-5.5) L 02/17/20 04:20 Globulin 3.6 g/dL (2.1-4.2) 02/17/20 04:20 Albumin/Globulin Ratio 0.6 (1.0-2.2) L 02/17/20 04:20 Lipase 116 U/L (22-51) H 02/15/20 10:30 Vitamin B12 788 pg/mL (180-914) 02/17/20 04:20 Folate 10.40 ng/mL (5.90 - >24.8) 02/17/20 04:20 Urine Color YELLOW 02/15/20 12:00 Urine Clarity HAZY (CLEAR) 02/15/20 12:00 Urine pH 6.0 PH (5.0-7.5) 02/15/20 12:00 Ur Specific [place] 1.015 (1.002-1.030) 02/15/20 12:00 Urine Protein TRACE mg/dL (NEGATIVE) 02/15/20 12:00 Urine Glucose (UA) 500 mg/dL (NEGATIVE) H 02/15/20 12:00 Urine Ketones NEGATIVE mg/dL (NEGATIVE) 02/15/20 12:00 Urine Occult Blood MODERATE (NEGATIVE) H 02/15/20 12:00 Urine Nitrite NEGATIVE (NEGATIVE) 02/15/20 12:00 Urine Bilirubin NEGATIVE (NEGATIVE) 02/15/20 12:00 Urine Urobilinogen 4 E.U./dL (NORMAL) H 02/15/20 12:00 Ur Leukocyte Esterase NEGATIVE (NEGATIVE) 02/15/20 12:00 Urine RBC 6-10 /HPF (0-5) H 02/15/20 12:00 Urine WBC 0-3 /HPF (0-3) 02/15/20 12:00 Ur Squamous Epith Cells NONE SEEN (<= Few) 02/15/20 12:00 Urine Bacteria None Seen /HPF (None Seen) 02/15/20 12:00 Ur Microscopic Review INDICATED 02/15/20 12:00 Fluid Source PERITONEAL 02/16/20 15:30 Fluid Color YELLOW 02/16/20 15:30 Fluid Clarity CLEAR 02/16/20 15:30 Fluid WBC 31 /mm^3 02/16/20 15:30 Fluid RBC 74 /mm^3 02/16/20 15:30 Fluid Neutrophils % 6 % 02/16/20 15:30 Fluid Lymphocytes % 38 % 02/16/20 15:30 Fluid Monocytes % 11 % 02/16/20 15:30 Fluid Macrophages % 18 % 02/16/20 15:30 Fld Mesothelial Cell % 27 % 02/16/20 15:30 Nasal Screen MRSA (PCR) NEGATIVE (NEGATIVE) 02/15/20 16:43
[2020-02-17] MEDS ORDERED: MULTIVITAMIN W/MINERALS TABLET PO SCH (09:00)
[2020-02-17 09:11] LABS: MAGNESIUM 1.8 mg/dL (1.7-2.8)
[2020-02-17] MEDS: CHOLECALCIFEROL 25 MCG TABLET PO SCH (09:15)
[2020-02-17] MEDS: OMEGA-3 ACID ETHYL ESTERS 1 GM CAPSULE PO SCH (09:15)
[2020-02-17] MEDS: FERROUS GLUCONATE 324 MG TABLET PO SCH (09:16)
[2020-02-17] MEDS: THIAMINE 100 MG TABLET PO SCH (09:16)
[2020-02-17] MEDS ORDERED: chlordiazePOXIDE 25 MG CAPSULE PO SCH (21:00)
[2020-02-17] MEDS ORDERED: INSULIN GLARGINE 300 UNIT/3 ML PEN SUBQ SCH (21:00)
[2020-02-17] MEDS: METOPROLOL SUCCINATE 25 MG TABLET PO SCH (21:05)
[2020-02-18 04:22] LABS: HGB - HEMOGLOBIN 11.6 g/dL (14.0-18.0); MEAN CORPUSCULAR HEMOGLOBIN 34.3 pg (27.0-31.0); MEAN CORPUSCULAR HGB CONC 33.8 g/dL (32.0-36.0); MEAN CORPUSCULAR VOLUME 101.5 fL (80.0-94.0); MEAN PLATELET VOLUME 9.9 fL (7.4-11.4); RED BLOOD COUNT 3.38 10^6/uL (4.70-6.10); RED CELL DISTRIBUTION WIDTH 13.1 % (12.0-15.0); WHITE BLOOD COUNT 5.2 x10^3/uL (4.8-10.8)
[2020-02-18 04:27] LABS: INR 1.4 (0.8-1.2); PT - PROTHROMBIN TIME 15.6 secs (9.9-12.6)
[2020-02-18 04:29] LABS: VBG PH 7.457 (7.31-7.41)
[2020-02-18 04:34] LABS: ALBUMIN 2.1 g/dL (3.2-5.5); ALBUMIN/GLOBULIN RATIO 0.6 (1.0-2.2); BILIRUBIN,TOTAL 1.7 mg/dL (0.2-1.0); CALCIUM 8.3 mg/dL (8.5-10.3); CREATININE 1.1 mg/dL (0.6-1.2); MAGNESIUM 1.7 mg/dL (1.7-2.8); PARTIAL THROMBOPLASTIN TIME 30.7 secs (24.9-33.3); TOTAL PROTEIN 5.7 g/dL (6.7-8.2)
[2020-02-18] MEDS: PHENAZOPYRIDINE 100 MG TABLET PO SCH ×3 (06:42→21:38)
[2020-02-18] MEDS: ALBUTEROL NEB 2.5 MG/3 ML INH PRN ×2 (07:29→17:55)
[2020-02-18] MEDS: BUDESONIDE 0.5 MG/2 ML NEB INH SCH ×2 (07:29→17:55)
[2020-02-18] MEDS: ASPIRIN EC 81 MG TABLET PO SCH (08:25)
[2020-02-18] MEDS: FERROUS GLUCONATE 324 MG TABLET PO SCH (08:25)
[2020-02-18] MEDS: THIAMINE 100 MG TABLET PO SCH (08:25)
[2020-02-18] MEDS: CHOLECALCIFEROL 25 MCG TABLET PO SCH (08:26)
[2020-02-18] MEDS: FAMOTIDINE 20 MG TABLET PO SCH ×2 (08:26→21:38)
[2020-02-18] MEDS: OMEGA-3 ACID ETHYL ESTERS 1 GM CAPSULE PO SCH (08:27)
[2020-02-18] MEDS: SODIUM CHLORIDE FLUSH 0.9% 10 ML SYRINGE IVP SCH ×3 (08:27→23:49)
[2020-02-18] MEDS: FUROSEMIDE 20 MG/2 ML VIAL IVP SCH (08:27)
[2020-02-18] MEDS: PRENATAL VITAMIN TABLET PO SCH (08:27)
[2020-02-18] MEDS: buPROPion SR 150 MG TABLET PO SCH ×2 (08:28→21:38)
[2020-02-18] MEDS: HYDROCORTISONE 1% CREAM 28 GM TUBE TOP SCH ×2 (08:31→21:39)
[2020-02-18] MEDS: INSULIN ASPART 300 UNIT/3 ML PEN SUBQ SCH ×7 (08:42→21:39)
--- NOTE | 2020-02-18 13:34 | PROVIDER PROGRESS NOTE ---
Assessment/Plan - Problem List (1) Anasarca Assessment/Plan: Patient has only had about 1.5 L negative fluid balance despite 2 L of paracentesis and getting diuresis daily. Continue with loop diuretic and plan to start spironolactone tomorrow. Follow I's and O's and daily weights. Continue with fluid restriction. The patient still has need for Blnut because his penis is still edematous with this much anasarca (2) Ascites Assessment/Plan: 2 L paracentesis removed today. If blood pressure is stable several hours after this paracentesis, will move out of the ICU today. Continue with Lasix plus spironolactone to start tomorrow. (3) Anemia Qualifiers: Anemia type: iron deficiency Assessment/Plan: On iron replacement for several days now (4) Alcohol abuse Assessment/Plan: He is on p.o. thiamine and multivitamin. He was already seen by social work, no special transfer is planned (5) Swelling of penis Assessment/Plan: As above (6) Swelling of the testicles Assessment/Plan: As above, it is ion a cloth sling (7) Hyponatremia Assessment/Plan: Slowly improving serum sodium. Continue with total fluid and free water restriction and with diuretics (8) Diabetes mellitus, insulin dependent (IDDM), uncontrolled Assessment/Plan: Adjusting his long-acting and mealtime insulin, continue with Accu-Cheks and sliding scale coverage as well (9) Wound of right leg Assessment/Plan: This note was entered by [facility] Wound RN yesterday: "I called and spoke with RN for patient. Per photos, wound on locke and on foot appear to be dry and intact eschar. If there is no exudate eschar should be left intact. Patient may be referred for wound care upon discharge if appropriate". (10) Hypotension Assessment/Plan: Resolved He was moved out of ICU this afternoon, after paracentesis (11) Alcohol withdrawal Assessment/Plan: No CIWA evidence of withdrawal for several days CIWA monitoring and iv Ativan prn stopped. (12) Rash Assessment/Plan: Improved after a shower and using Hydrocortisone bid - Current Meds Current Meds: Current Medications Generic Name Dose Route Start Last Admin Trade Name Freq PRN Reason Stop Dose Admin Albuterol 2.5 mg 02/16/20 07:40 12/04/20 07:29 Albuterol Neb 2.5 Mg/3 Ml INH 2.5 mg RTQ4H PRN Administration Wheezing Aspirin 81 mg 02/16/20 09:00 02/18/20 08:25 Aspirin Ec 81 Mg Tablet PO 81 mg DAILY JOY Administration Budesonide 0.5 mg 02/16/20 19:00 02/18/20 07:29 Budesonide 0.5 Mg/2 Ml Neb INH 0.5 mg RTBID JOY Administration Bupropion HCl 150 mg 02/15/20 21:00 02/18/20 08:28 Bupropion Sr 150 Mg Tablet PO 150 mg BID JOY Administration Chlordiazepoxide HCl 25 mg 02/17/20 21:00 02/17/20 21:02 Chlordiazepoxide 25 Mg Capsule PO 25 mg QPM JOY Administration Cholecalciferol 50 mcg 02/17/20 09:00 02/18/20 08:26 Cholecalciferol 25 Mcg Tablet PO 50 mcg DAILY JOY Administration Famotidine 20 mg 02/15/20 21:00 02/18/20 08:26 Famotidine 20 Mg Tablet PO 20 mg BID JOY Administration Ferrous Gluconate 324 mg 02/17/20 09:07 02/18/20 08:25 Ferrous Gluconate 324 Mg Tablet PO 324 mg DAILYWM JOY Administration Furosemide 20 mg 02/17/20 09:00 02/18/20 08:27 Furosemide 20 Mg/2 Ml Vial IVP 02/18/20 22:00 20 mg DAILY JOY Administration Hydrocortisone 1 applic 02/16/20 21:00 02/18/20 08:31 Hydrocortisone 1% Cream 28 Gm Tube TOP 1 applic BID JOY Administration Ibuprofen 600 mg 02/17/20 08:42 02/18/20 10:37 Ibuprofen 600 Mg Tablet PO 600 mg Q8HR PRN Administration Pain or Fever > 38C (100.4F) Insulin Aspart 2 - 10 unit 02/16/20 21:00 02/18/20 11:55 Insulin Aspart 300 Unit/3 Ml Pen SUBQ 4 unit 0800,1200,1700,2100 JOY Administration Protocol Insulin Aspart 12 unit 02/18/20 12:00 02/18/20 11:56 Insulin Aspart 300 Unit/3 Ml Pen SUBQ 12 unit TIDWM JOY Administration Metoprolol Succinate 25 mg 02/17/20 21:00 02/17/20 21:05 Metoprolol Succinate 25 Mg Tablet PO 25 mg QPM JOY Administration [id number] Ethyl Esters 1 gm 02/17/20 09:00 02/18/20 08:27 [place]-3 Acid Ethyl Esters 1 Gm Capsule PO 1 gm DAILY JOY Administration Phenazopyridine HCl 100 mg 02/16/20 14:00 02/18/20 06:42 Phenazopyridine 100 Mg Tablet PO 100 mg TID JOY Administration Multivit/Folic Acid/Iron 1 tab 02/16/20 09:00 02/18/20 08:27 Vitamin Tablet PO 1 tab DAILY JOY Administration Sodium Chloride 10 ml 02/15/20 17:00 02/18/20 08:27 Sodium Chloride Flush 0.9% 10 Ml Syringe IVP 10 ml 0100,0900,1700 JOY Administration Sodium Chloride 10 ml 02/15/20 12:30 02/16/20 14:04 Sodium Chloride Flush 0.9% 10 Ml Syringe IVP 10 ml PRN PRN Administration NEEDED PER PROVIDER ORDERS Thiamine HCl 100 mg 02/16/20 09:00 02/18/20 08:25 Thiamine 100 Mg Tablet PO 100 mg DAILY JOY Administration - Lab Result Fish Bone Diagrams: 02/19/20 05:02 02/19/20 05:02 - Additional Planning My Orders: My Active Orders 02/17/20 21:00 Metoprolol Succinate [Toprol Xl] 25 mg PO QPM chlordiazePOXIDE [Librium] 25 mg PO QPM 02/18/20 Evaluate and Treat OT [OT] Routine Evaluate and Treat PT [PT] Routine 02/18/20 12:00 Insulin Aspart [NovoLOG] 12 unit SUBQ TIDWM 02/18/20 12:06 Abdominal Paracentesis [US] Routine 02/18/20 21:00 Insulin Glargine [Lantus Solostar] 65 unit SUBQ HS 02/19/20 05:00 CALCIUM, IONIZED ([facility]) [BG] DAILYLAB CBC W/O DIFF (HEMOGRAM) [HEME] DAILYLAB COMPREHENSIVE METABOLIC PANEL [CHEM] DAILYLAB MAGNESIUM [CHEM] DAILYLAB PHOSPHORUS [CHEM] DAILYLAB PT WITH INR [COAG] DAILYLAB 02/19/20 09:00 Enoxaparin [Lovenox] 40 mg SUBQ DAILY Furosemide [Lasix] 40 mg PO DAILY Spironolactone [Aldactone] 25 mg PO DAILY 02/20/20 05:00 CALCIUM, IONIZED ([facility]) [BG] DAILYLAB CBC W/O DIFF (HEMOGRAM) [HEME] DAILYLAB MAGNESIUM [CHEM] DAILYLAB PHOSPHORUS [CHEM] DAILYLAB PT WITH INR [COAG] DAILYLAB 02/21/20 05:00 PT WITH INR [COAG] DAILYLAB Subjective - Subjective Patient Reports: Feeling Better, Resting Comfortably, Fatigue Objective Vital Signs: Vital Signs - 24 hr 02/17/20 02/17/20 02/17/20 14:00 15:00 16:00 Temperature Heart Rate Heart Rate [ 92 89 92 Monitoring electrodes] Respiratory 27 H 25 H 23 Rate Blood Pressure 105/73 104/83 H [Left Brachial artery] O2 Saturation 96 97 02/17/20 02/17/20 02/17/20 16:44 18:00 19:00 Temperature Heart Rate Heart Rate [ 92 93 91 Monitoring electrodes] Respiratory 17 20 16 Rate Blood Pressure 104/83 H 111/79 100/70 [Left Brachial artery] O2 Saturation 97 95 02/17/20 02/17/20 02/17/20 19:44 19:56 21:00 Temperature 36.4 C L Heart Rate 96 Heart Rate [ 96 101 H Monitoring electrodes] Respiratory 12 24 19 Rate Blood Pressure 100/70 132/77 H [Left Brachial artery] O2 Saturation 96 96 02/17/20 02/17/20 02/17/20 22:00 22:43 23:00 Temperature 36.7 C Heart Rate Heart Rate [ 99 101 H Monitoring electrodes] Respiratory 23 22 Rate Blood Pressure 90/58 L 152/96 H [Left Brachial artery] O2 Saturation 96 02/18/20 02/18/20 02/18/20 00:00 01:00 02:00 Temperature Heart Rate Heart Rate [ 98 95 96 Monitoring electrodes] Respiratory 24 20 24 Rate Blood Pressure 118/71 98/58 L 112/67 [Left Brachial artery] O2 Saturation 02/18/20 02/18/20 02/18/20 03:00 04:00 05:00 Temperature 37.2 C Heart Rate Heart Rate [ 97 96 100 Monitoring electrodes] Respiratory 23 24 19 Rate Blood Pressure 96/66 102/66 114/73 [Left Brachial artery] O2 Saturation 95 02/18/20 02/18/20 02/18/20 06:00 07:00 07:37 Temperature Heart Rate 100 Heart Rate [ 98 101 H Monitoring electrodes] Respiratory 30 H 23 24 Rate Blood Pressure 104/68 124/80 [Left Brachial artery] O2 Saturation 02/18/20 02/18/20 02/18/20 08:00 09:00 10:00 Temperature 36.8 C Heart Rate Heart Rate [ 101 H 87 88 Monitoring electrodes] Respiratory 26 H 20 14 Rate Blood Pressure 108/71 101/71 108/68 [Left Brachial artery] O2 Saturation 91 L 97 97 02/18/20 02/18/20 11:00 12:00 Temperature 36.7 C Heart Rate Heart Rate [ 86 87 Monitoring electrodes] Respiratory 24 27 H Rate Blood Pressure 116/64 128/76 [Left Brachial artery] O2 Saturation 97 98 Oxygen O2 Source Room air I&O (Last 24 Hrs): Intake and Output Totals x24h 02/16/20 02/17/20 02/18/20 23:59 23:59 23:59 Intake Total 1190 1110 960 Output Total 3037 1155 895 Balance -1847 -45 65 General: Alert, Oriented x3 HEENT: Mucous membr. moist/pink Neck: Supple Neuro: Alert, Non Focal Cardiovascular: Regular rate, No murmurs Respiratory: No respiratory distress, Breath sounds nml Abdomen: No tenderness, Other (Moderately distended, soft) Genitourinary: Other (Plus swelling of the penile shaft and testicles) Extremities: Other (3+ pitting edema to the level of the umbilicus today) - Results Results: Laboratory Results WBC 5.2 x10^3/uL (4.8-10.8) 02/18/20 04:15 RBC 3.38 10^6/uL (4.70-6.10) L 02/18/20 04:15 Hgb 11.6 g/dL (14.0-18.0) L 02/18/20 04:15 Hct 34.3 % (42.0-52.0) L 02/18/20 04:15 MCV 101.5 fL (80.0-94.0) H 02/18/20 04:15 MCH 34.3 pg (27.0-31.0) H 02/18/20 04:15 MCHC 33.8 g/dL (32.0-36.0) 02/18/20 04:15 RDW 13.1 % (12.0-15.0) 02/18/20 04:15 Plt Count 158 10^3/uL (130-450) 02/18/20 04:15 MPV 9.9 fL (7.4-11.4) 02/18/20 04:15 Neut # (Auto) 4.9 10^3/uL (1.5-6.6) 02/17/20 04:20 Lymph # (Auto) 1.3 10^3/uL (1.5-3.5) L 02/17/20 04:20 [place] # (Auto) 0.8 10^3/uL (0.0-1.0) 02/17/20 04:20 Eos # (Auto) 0.3 10^3/uL (0.0-0.7) 02/17/20 04:20 Baso # (Auto) 0.1 10^3/uL (0.0-0.1) 02/17/20 04:20 Absolute Nucleated RBC 0.00 x10^3/uL 02/17/20 04:20 Nucleated RBC % 0.0 /100WBC 02/17/20 04:20 PT 15.6 secs (9.9-12.6) H 02/18/20 04:15 INR 1.4 (0.8-1.2) H 02/18/20 04:15 APTT 30.7 secs (24.9-33.3) 02/18/20 04:15 VBG pH 7.457 (7.31-7.41) H 02/18/20 04:15 Ionized Calcium 1.07 mmol/L (1.15-1.33) L 02/18/20 04:15 Sodium 134 mmol/L (135-145) L 02/18/20 04:15 Potassium 3.8 mmol/L (3.5-5.0) 02/18/20 04:15 Chloride 98 mmol/L (101-111) L 02/18/20 04:15 Carbon Dioxide 27 mmol/L (21-32) 02/18/20 04:15 Anion Gap 9.0 (6-13) 02/18/20 04:15 BUN 26 mg/dL (6-20) H 02/18/20 04:15 Creatinine 1.1 mg/dL (0.6-1.2) 02/18/20 04:15 Estimated GFR (MDRD) 71 (>89) L 02/18/20 04:15 Glucose 202 mg/dL (70-100) H 02/18/20 04:15 POC Whole Bld Glucose 218 mg/dL (70 - 100) H 02/18/20 11:54 Estimat Average Glucose 174 mg/dL (70-100) H 02/16/20 04:05 Hemoglobin A1c % 7.7 % (4.27-6.07) H 02/16/20 04:05 Calcium 8.3 mg/dL (8.5-10.3) L 02/18/20 04:15 Phosphorus 4.5 mg/dL (2.5-4.6) 02/18/20 04:15 Magnesium 1.7 mg/dL (1.7-2.8) 02/18/20 04:15 Iron 37 ug/dL (45-182) L 02/17/20 04:20 TIBC 207 ug/dL (250-450) L 02/17/20 04:20 % Saturation 18 % (20-50) L 02/17/20 04:20 Transferrin 148 mg/dL (180-329) L 02/17/20 04:20 Total Bilirubin 1.7 mg/dL (0.2-1.0) H 02/18/20 04:15 GGT 166 IU/L (8-55) H 02/16/20 04:05 AST 44 IU/L (10-42) H 02/18/20 04:15 ALT 19 IU/L (10-60) 02/18/20 04:15 Alkaline Phosphatase 71 IU/L (42-121) 02/18/20 04:15 Ammonia 38.8 umol/L (7-35) H 02/18/20 04:15 Troponin I High Sens 8.0 ng/L (2.3-19.7) 02/15/20 10:30 Troponin I High Sens 8.7 ng/L (2.3-19.7) 02/15/20 10:30 C-Reactive Protein 5.7 mg/dL (0-1.0) H 02/15/20 10:54 Total Protein 5.7 g/dL (6.7-8.2) L 02/18/20 04:15 Albumin 2.1 g/dL (3.2-5.5) L 02/18/20 04:15 Globulin 3.6 g/dL (2.1-4.2) 02/18/20 04:15 Albumin/Globulin Ratio 0.6 (1.0-2.2) L 02/18/20 04:15 Lipase 81 U/L (22-51) H 02/17/20 04:20 Vitamin B12 788 pg/mL (180-914) 02/17/20 04:20 Folate 10.40 ng/mL (5.90 - >24.8) 02/17/20 04:20 Urine Color YELLOW 02/15/20 12:00 Urine Clarity HAZY (CLEAR) 02/15/20 12:00 Urine pH 6.0 PH (5.0-7.5) 02/15/20 12:00 Ur Specific [place] 1.015 (1.002-1.030) 02/15/20 12:00 Urine Protein TRACE mg/dL (NEGATIVE) 02/15/20 12:00 Urine Glucose (UA) 500 mg/dL (NEGATIVE) H 02/15/20 12:00 Urine Ketones NEGATIVE mg/dL (NEGATIVE) 02/15/20 12:00 Urine Occult Blood MODERATE (NEGATIVE) H 02/15/20 12:00 Urine Nitrite NEGATIVE (NEGATIVE) 02/15/20 12:00 Urine Bilirubin NEGATIVE (NEGATIVE) 02/15/20 12:00 Urine Urobilinogen 4 E.U./dL (NORMAL) H 02/15/20 12:00 Ur Leukocyte Esterase NEGATIVE (NEGATIVE) 02/15/20 12:00 Urine RBC 6-10 /HPF (0-5) H 02/15/20 12:00 Urine WBC 0-3 /HPF (0-3) 02/15/20 12:00 Ur Squamous Epith Cells NONE SEEN (<= Few) 02/15/20 12:00 Urine Bacteria None Seen /HPF (None Seen) 02/15/20 12:00 Ur Microscopic Review INDICATED 02/15/20 12:00 Fluid Source PERITONEAL 02/16/20 15:30 Fluid Color YELLOW 02/16/20 15:30 Fluid Clarity CLEAR 02/16/20 15:30 Fluid WBC 31 /mm^3 02/16/20 15:30 Fluid RBC 74 /mm^3 12/02/20 15:30 Fluid Neutrophils % 6 % 02/16/20 15:30 Fluid Lymphocytes % 38 % 02/16/20 15:30 Fluid Monocytes % 11 % 02/16/20 15:30 Fluid Macrophages % 18 % 02/16/20 15:30 Fld Mesothelial Cell % 27 % 02/16/20 15:30 Nasal Screen MRSA (PCR) NEGATIVE (NEGATIVE) 02/15/20 16:43 Coronavirus (PCR) NEGATIVE 02/15/20 16:43
--- NOTE | 2020-02-18 16:33 | Ultrasound Report ---
PROCEDURE: Abdominal Paracentesis INDICATIONS: Therapeutic paracentesis of 2L today please TECHNIQUE: The indications, alternatives, benefits, risks, and complications of the procedure were explained to the patient. Written informed consent was obtained and placed in the chart. The abdomen and pelvis were examined sonographically, and an appropriate site was chosen for paracentesis. The skin was pre pared and draped in the usual sterile fashion, and 1% lidocaine was infiltrated from the skin down th rough the peritoneal surface. A 19-gauge catheter-covered needle was then introduced into the perito valerie space, the catheter was advanced and the needle was withdrawn, and thereafter peritoneal fluid w as withdrawn. The catheter was then removed and a dressing was applied. The fluid was discarded if the clinician did not order diagnostic testing of the fluid. COMPARISON: None FINDINGS: Access site: Right lower quadrant Needle: One-Step centesis catheter with introducer needle. Fluid volume and description: 2 L Fluid sent for diagnostic testing: Yellow clear Medications: 1% lidocaine for local anaesthesia. Complications: None. IMPRESSION: Successful ultrasound-guided paracentesis. Reviewed by: Joanne Cabral MD on 02/18/2020 4:31 PM PST Approved by: Joanne Cabral MD on 02/18/2020 4:31 PM PST Station ID: [id number]
[2020-02-18] MEDS: INSULIN GLARGINE 300 UNIT/3 ML PEN SUBQ SCH (21:41)
[2020-02-18] MEDS: METOPROLOL SUCCINATE 25 MG TABLET PO SCH (21:42)
[2020-02-18] MEDS ORDERED: chlordiazePOXIDE 5 MG CAPSULE PO SCH (22:00)
[2020-02-19 05:14] LABS: HGB - HEMOGLOBIN 11.7 g/dL (14.0-18.0); MEAN CORPUSCULAR HEMOGLOBIN 33.5 pg (27.0-31.0); MEAN CORPUSCULAR HGB CONC 33.2 g/dL (32.0-36.0); MEAN CORPUSCULAR VOLUME 100.9 fL (80.0-94.0); MEAN PLATELET VOLUME 9.8 fL (7.4-11.4); RED BLOOD COUNT 3.49 10^6/uL (4.70-6.10); RED CELL DISTRIBUTION WIDTH 12.9 % (12.0-15.0); WHITE BLOOD COUNT 5.1 x10^3/uL (4.8-10.8)
[2020-02-19] MEDS: PHENAZOPYRIDINE 100 MG TABLET PO SCH ×3 (05:19→21:27)
[2020-02-19 05:27] LABS: ALBUMIN 2.2 g/dL (3.2-5.5); ALBUMIN/GLOBULIN RATIO 0.6 (1.0-2.2); BILIRUBIN,TOTAL 1.7 mg/dL (0.2-1.0); CALCIUM 8.5 mg/dL (8.5-10.3); MAGNESIUM 1.8 mg/dL (1.7-2.8); TOTAL PROTEIN 5.9 g/dL (6.7-8.2)
[2020-02-19 05:30] LABS: VBG PH 7.437 (7.31-7.41)
[2020-02-19 05:36] LABS: INR 1.3 (0.8-1.2); PT - PROTHROMBIN TIME 14.6 secs (9.9-12.6)
[2020-02-19] MEDS: ALBUTEROL NEB 2.5 MG/3 ML INH PRN (08:07)
[2020-02-19] MEDS: BUDESONIDE 0.5 MG/2 ML NEB INH SCH ×2 (08:08→19:20)
[2020-02-19] MEDS ORDERED: FUROSEMIDE 40 MG TABLET PO SCH (09:00)
[2020-02-19] MEDS: INSULIN ASPART 300 UNIT/3 ML PEN SUBQ SCH ×7 (09:35→21:26)
[2020-02-19] MEDS: MIN OIL/DIMETHICON/COCONUT OIL 92 GM TUBE TOP PRN (10:17)
[2020-02-19] MEDS: ENOXAPARIN 40 MG/0.4 ML SYRINGE SUBQ SCH (10:17)
[2020-02-19] MEDS: HYDROCORTISONE 1% CREAM 28 GM TUBE TOP SCH ×2 (10:17→21:26)
[2020-02-19] MEDS: SPIRONOLACTONE 25 MG TABLET PO SCH (10:18)
[2020-02-19] MEDS: CHOLECALCIFEROL 25 MCG TABLET PO SCH (10:18)
[2020-02-19] MEDS: buPROPion SR 150 MG TABLET PO SCH ×2 (10:18→21:27)
[2020-02-19] MEDS: PRENATAL VITAMIN TABLET PO SCH (10:18)
[2020-02-19] MEDS: OMEGA-3 ACID ETHYL ESTERS 1 GM CAPSULE PO SCH (10:18)
[2020-02-19] MEDS: FUROSEMIDE 40 MG TABLET PO SCH (10:18)
[2020-02-19] MEDS: FERROUS GLUCONATE 324 MG TABLET PO SCH (10:34)
[2020-02-19] MEDS: ASPIRIN EC 81 MG TABLET PO SCH (10:34)
[2020-02-19] MEDS: FAMOTIDINE 20 MG TABLET PO SCH ×2 (10:35→21:27)
[2020-02-19] MEDS: THIAMINE 100 MG TABLET PO SCH (10:35)
[2020-02-19] MEDS: SODIUM CHLORIDE FLUSH 0.9% 10 ML SYRINGE IVP SCH ×2 (10:35→17:00)
--- NOTE | 2020-02-19 13:03 | PROVIDER PROGRESS NOTE ---
Assessment/Plan - Problem List (1) Anasarca Assessment/Plan: Today he is able to lie completely supine and not be short of breath. There has been no improvement in his anasarca since yesterday; the pitting edema is up to the line of his umbilicus. His weight has dropped to 1.5 pounds only since admission. This is with diuresis and with a total of 4 L paracentesis fluid removed. Continue with diuretics, today he will start p.o. Lasix plus p.o. Spironolactone. The penis and testicles are still swollen but not as tense, he still has a sense that he would not be able to urinate if the Blunt is removed. We will continue with the Blunt until there is more diuresis (2) Ascites Assessment/Plan: The abdomen is moderately distended and soft, he is able to lie supine and is not short of breath. Today he will start p.o. Lasix, IV Lasix was stopped. Today we will start p.o. Spironolactone. The Spironolactone dose will be increased if his blood pressure will tolerate it (3) Anemia Qualifiers: Anemia type: iron deficiency Assessment/Plan: Iron replacement orally has been started Is guaiac stool sample is still pending (4) Alcohol abuse Assessment/Plan: He was seen in consult by social work, their impression was that he is equivocal about stopping alcohol abuse. He is on daily oral thiamine and multivitamins (5) Swelling of penis Assessment/Plan: As above in #1 (6) Swelling of the testicles Assessment/Plan: As above in #1 (7) Hyponatremia Assessment/Plan: He is now hovering around sodium levels of 1 32-1 33 daily. Continue with diuretic plan as above, and free water restriction in his diet (8) Diabetes mellitus, insulin dependent (IDDM), uncontrolled Assessment/Plan: He has glucoses now again in the 200s. We will resume his Metformin. Continue with the long-acting insulin and mealtime insulin and sliding scale coverage for Accu-Cheks (9) Wound of right leg Assessment/Plan: The wound nurse viewed the images in the EMR and stated that because they are not open, he can have this evaluated as an outpatient in [place] [facility] [place] I relayed this information to the patient yesterday (10) Hypotension Assessment/Plan: Improved. (11) Alcohol withdrawal Assessment/Plan: His hypertension and tachycardia improved while in the ICU. He was on scheduled Librium, it is been weaned to off, last night was the last dose. Is tested nothing on a CIWA protocol and it was stopped yesterday - Current Meds Current Meds: Current Medications Generic Name Dose Route Start Last Admin Trade Name Freq PRN Reason Stop Dose Admin Albuterol 2.5 mg 02/16/20 07:40 02/19/20 08:07 Albuterol Neb 2.5 Mg/3 Ml INH 2.5 mg RTQ4H PRN Administration Wheezing Aspirin 81 mg 02/16/20 09:00 02/19/20 10:34 Aspirin Ec 81 Mg Tablet PO 81 mg DAILY JOY Administration Budesonide 0.5 mg 02/16/20 19:00 02/19/20 08:08 Budesonide 0.5 Mg/2 Ml Neb INH 0.5 mg RTBID JOY Administration Bupropion HCl 150 mg 02/15/20 21:00 02/19/20 10:18 Bupropion Sr 150 Mg Tablet PO 150 mg BID JOY Administration Cholecalciferol 50 mcg 02/17/20 09:00 02/19/20 10:18 Cholecalciferol 25 Mcg Tablet PO 50 mcg DAILY JOY Administration Enoxaparin Sodium 40 mg 02/19/20 09:00 02/19/20 10:17 Enoxaparin 40 Mg/0.4 Ml Syringe SUBQ 40 mg DAILY JOY Administration Famotidine 20 mg 02/15/20 21:00 02/19/20 10:35 Famotidine 20 Mg Tablet PO 20 mg BID JOY Administration Ferrous Gluconate 324 mg 02/17/20 09:07 02/19/20 10:34 Ferrous Gluconate 324 Mg Tablet PO 324 mg DAILYWM JOY Administration Furosemide 20 mg 02/19/20 09:00 02/19/20 10:18 Furosemide 40 Mg Tablet PO 20 mg DAILY JOY Administration Hydrocortisone 1 applic 02/16/20 21:00 02/19/20 10:17 Hydrocortisone 1% Cream 28 Gm Tube TOP 1 applic BID JOY Administration Insulin Aspart 2 - 10 unit 02/16/20 21:00 02/19/20 11:55 Insulin Aspart 300 Unit/3 Ml Pen SUBQ 6 unit 0800,1200,1700,2100 JOY Administration Protocol Insulin Aspart 12 unit 02/18/20 12:00 02/19/20 11:56 Insulin Aspart 300 Unit/3 Ml Pen SUBQ 12 unit TIDWM JOY Administration Insulin Glargine 65 unit 02/18/20 21:00 02/18/20 21:41 Insulin Glargine 300 Unit/3 Ml Pen SUBQ 65 unit HS JOY Administration Metoprolol Succinate 25 mg 02/17/20 21:00 02/18/20 21:42 Metoprolol Succinate 25 Mg Tablet PO 25 mg QPM JOY Administration Mineral Oil 1 applic 02/16/20 21:35 02/19/20 10:17 Min Oil/Dimethicon/Coconut Oil 92 Gm Tube TOP 1 applic PRN PRN Administration Skin Care [id number] Ethyl Esters 1 gm 02/17/20 09:00 02/19/20 10:18 [place]-3 Acid Ethyl Esters 1 Gm Capsule PO 1 gm DAILY JOY Administration Phenazopyridine HCl 100 mg 02/16/20 14:00 02/19/20 05:19 Phenazopyridine 100 Mg Tablet PO 100 mg TID JOY Administration Multivit/Folic Acid/Iron 1 tab 02/16/20 09:00 02/19/20 10:18 Vitamin Tablet PO 1 tab DAILY JOY Administration Sodium Chloride 10 ml 02/15/20 17:00 02/19/20 10:35 Sodium Chloride Flush 0.9% 10 Ml Syringe IVP 10 ml 0100,0900,1700 JOY Administration Sodium Chloride 10 ml 02/15/20 12:30 02/16/20 14:04 Sodium Chloride Flush 0.9% 10 Ml Syringe IVP 10 ml PRN PRN Administration NEEDED PER PROVIDER ORDERS Spironolactone 25 mg 02/19/20 09:00 02/19/20 10:18 Spironolactone 25 Mg Tablet PO 25 mg DAILY JOY Administration Thiamine HCl 100 mg 02/16/20 09:00 02/19/20 10:35 Thiamine 100 Mg Tablet PO 100 mg DAILY JOY Administration - Lab Result Fish Bone Diagrams: 02/19/20 05:02 02/19/20 05:02 - Additional Planning My Orders: My Active Orders 02/18/20 15:41 Vital Signs [RC] Q4HR 02/18/20 21:00 Insulin Glargine [Lantus Solostar] 65 unit SUBQ HS 02/19/20 09:00 Enoxaparin [Lovenox] 40 mg SUBQ DAILY Furosemide [Lasix] 20 mg PO DAILY Spironolactone [Aldactone] 25 mg PO DAILY 02/19/20 17:00 metFORMIN [Glucophage] 1,000 mg PO BIDWM 02/20/20 05:00 CALCIUM, IONIZED ([facility]) [BG] DAILYLAB CBC W/O DIFF (HEMOGRAM) [HEME] DAILYLAB MAGNESIUM [CHEM] DAILYLAB Subjective - Subjective Patient Reports: Resting Comfortably, Other (Still has Blunt and wishes to keep it in, has sense that his penis is still very swollen) Objective Vital Signs: Vital Signs - 24 hr 02/18/20 02/18/20 02/18/20 14:00 15:00 16:00 Temperature 36.4 C L Heart Rate Heart Rate [ Brachial] Heart Rate [ 87 82 81 Monitoring electrodes] Respiratory 27 H 24 20 Rate Blood Pressure 130/81 H 99/64 108/68 [Left Brachial artery] Blood Pressure [Right Brachial artery] O2 Saturation 97 98 02/18/20 02/18/20 02/18/20 17:55 21:00 23:47 Temperature 36.6 C 36.5 C Heart Rate 76 Heart Rate [ Brachial] Heart Rate [ 85 81 Monitoring electrodes] Respiratory 20 16 16 Rate Blood Pressure 123/66 [Left Brachial artery] Blood Pressure 112/76 [Right Brachial artery] O2 Saturation 96 97 02/19/20 02/19/20 02/19/20 04:57 08:09 09:00 Temperature 36.9 C 36.7 C Heart Rate 85 Heart Rate [ 86 Brachial] Heart Rate [ 85 Monitoring electrodes] Respiratory 18 20 16 Rate Blood Pressure [Left Brachial artery] Blood Pressure 115/64 128/73 [Right Brachial artery] O2 Saturation 96 98 Oxygen O2 Source Room air I&O (Last 24 Hrs): Intake and Output Totals x24h 02/17/20 02/18/20 02/19/20 23:59 23:59 23:59 Intake Total 1110 1010 Output Total 1155 1710 450 Balance -45 -700 -450 General: Alert, Oriented x3 HEENT: EOMI, Mucous membr. moist/pink Neck: Supple Neuro: Alert, Non Focal Cardiovascular: Regular rate Respiratory: Chest non-tender, No respiratory distress Abdomen: Other (Ended, moderately tense, non-tender) Genitourinary: Other (3+ edema of his testes and penis, the Blunt is still in place) Extremities: Other (3+ pitting edema to the level of his umbilicus) - Results Results: Laboratory Results WBC 5.1 x10^3/uL (4.8-10.8) 02/19/20 05:02 RBC 3.49 10^6/uL (4.70-6.10) L 02/19/20 05:02 Hgb 11.7 g/dL (14.0-18.0) L 02/19/20 05:02 Hct 35.2 % (42.0-52.0) L 02/19/20 05:02 MCV 100.9 fL (80.0-94.0) H 02/19/20 05:02 MCH 33.5 pg (27.0-31.0) H 02/19/20 05:02 MCHC 33.2 g/dL (32.0-36.0) 02/19/20 05:02 RDW 12.9 % (12.0-15.0) 02/19/20 05:02 Plt Count 166 10^3/uL (130-450) 02/19/20 05:02 MPV 9.8 fL (7.4-11.4) 02/19/20 05:02 Neut # (Auto) 4.9 10^3/uL (1.5-6.6) 02/17/20 04:20 Lymph # (Auto) 1.3 10^3/uL (1.5-3.5) L 02/17/20 04:20 [place] # (Auto) 0.8 10^3/uL (0.0-1.0) 02/17/20 04:20 Eos # (Auto) 0.3 10^3/uL (0.0-0.7) 02/17/20 04:20 Baso # (Auto) 0.1 10^3/uL (0.0-0.1) 02/17/20 04:20 Absolute Nucleated RBC 0.00 x10^3/uL 02/17/20 04:20 Nucleated RBC % 0.0 /100WBC 02/17/20 04:20 PT 14.6 secs (9.9-12.6) H 02/19/20 05:02 INR 1.3 (0.8-1.2) H 02/19/20 05:02 APTT 30.7 secs (24.9-33.3) 02/18/20 04:15 VBG pH 7.437 (7.31-7.41) H 02/19/20 05:02 Ionized Calcium 1.11 mmol/L (1.15-1.33) L 02/19/20 05:02 Sodium 133 mmol/L (135-145) L 02/19/20 05:02 Potassium 3.8 mmol/L (3.5-5.0) 02/19/20 05:02 Chloride 101 mmol/L (101-111) 02/19/20 05:02 Carbon Dioxide 26 mmol/L (21-32) 02/19/20 05:02 Anion Gap 6.0 (6-13) 02/19/20 05:02 BUN 27 mg/dL (6-20) H 02/19/20 05:02 Creatinine 1.0 mg/dL (0.6-1.2) 02/19/20 05:02 Estimated GFR (MDRD) 79 (>89) L 02/19/20 05:02 Glucose 255 mg/dL (70-100) H 02/19/20 05:02 POC Whole Bld Glucose 273 mg/dL (70 - 100) H 02/19/20 11:23 Estimat Average Glucose 174 mg/dL (70-100) H 02/16/20 04:05 Hemoglobin A1c % 7.7 % (4.27-6.07) H 02/16/20 04:05 Calcium 8.5 mg/dL (8.5-10.3) 02/19/20 05:02 Phosphorus 4.0 mg/dL (2.5-4.6) 02/19/20 05:02 Magnesium 1.8 mg/dL (1.7-2.8) 02/19/20 05:02 Iron 37 ug/dL (45-182) L 02/17/20 04:20 TIBC 207 ug/dL (250-450) L 02/17/20 04:20 % Saturation 18 % (20-50) L 02/17/20 04:20 Transferrin 148 mg/dL (180-329) L 02/17/20 04:20 Total Bilirubin 1.7 mg/dL (0.2-1.0) H 02/19/20 05:02 GGT 166 IU/L (8-55) H 02/16/20 04:05 AST 47 IU/L (10-42) H 02/19/20 05:02 ALT 21 IU/L (10-60) 02/19/20 05:02 Alkaline Phosphatase 79 IU/L (42-121) 02/19/20 05:02 Ammonia 38.8 umol/L (7-35) H 02/18/20 04:15 Troponin I High Sens 8.0 ng/L (2.3-19.7) 02/15/20 10:30 Troponin I High Sens 8.7 ng/L (2.3-19.7) 02/15/20 10:30 C-Reactive Protein 5.7 mg/dL (0-1.0) H 02/15/20 10:54 Total Protein 5.9 g/dL (6.7-8.2) L 02/19/20 05:02 Albumin 2.2 g/dL (3.2-5.5) L 02/19/20 05:02 Globulin 3.7 g/dL (2.1-4.2) 02/19/20 05:02 Albumin/Globulin Ratio 0.6 (1.0-2.2) L 02/19/20 05:02 Lipase 81 U/L (22-51) H 02/17/20 04:20 Vitamin B12 788 pg/mL (180-914) 02/17/20 04:20 Folate 10.40 ng/mL (5.90 - >24.8) 02/17/20 04:20 Urine Color YELLOW 02/15/20 12:00 Urine Clarity HAZY (CLEAR) 02/15/20 12:00 Urine pH 6.0 PH (5.0-7.5) 02/15/20 12:00 Ur Specific [place] 1.015 (1.002-1.030) 02/15/20 12:00 Urine Protein TRACE mg/dL (NEGATIVE) 02/15/20 12:00 Urine Glucose (UA) 500 mg/dL (NEGATIVE) H 02/15/20 12:00 Urine Ketones NEGATIVE mg/dL (NEGATIVE) 02/15/20 12:00 Urine Occult Blood MODERATE (NEGATIVE) H 02/15/20 12:00 Urine Nitrite NEGATIVE (NEGATIVE) 02/15/20 12:00 Urine Bilirubin NEGATIVE (NEGATIVE) 02/15/20 12:00 Urine Urobilinogen 4 E.U./dL (NORMAL) H 02/15/20 12:00 Ur Leukocyte Esterase NEGATIVE (NEGATIVE) 02/15/20 12:00 Urine RBC 6-10 /HPF (0-5) H 02/15/20 12:00 Urine WBC 0-3 /HPF (0-3) 02/15/20 12:00 Ur Squamous Epith Cells NONE SEEN (<= Few) 02/15/20 12:00 Urine Bacteria None Seen /HPF (None Seen) 02/15/20 12:00 Ur Microscopic Review INDICATED 02/15/20 12:00 Fluid Source PERITONEAL 02/16/20 15:30 Fluid Color YELLOW 02/16/20 15:30 Fluid Clarity CLEAR 02/16/20 15:30 Fluid WBC 31 /mm^3 02/16/20 15:30 Fluid RBC 74 /mm^3 02/16/20 15:30 Fluid Neutrophils % 6 % 02/16/20 15:30 Fluid Lymphocytes % 38 % 02/16/20 15:30 Fluid Monocytes % 11 % 02/16/20 15:30 Fluid Macrophages % 18 % 02/16/20 15:30 Fld Mesothelial Cell % 27 % 02/16/20 15:30 Nasal Screen MRSA (PCR) NEGATIVE (NEGATIVE) 02/15/20 16:43 Coronavirus (PCR) NEGATIVE 02/15/20 16:43
[2020-02-19] MEDS: metFORMIN 500 MG TABLET PO SCH (17:00)
[2020-02-19] MEDS: INSULIN GLARGINE 300 UNIT/3 ML PEN SUBQ SCH (21:25)
[2020-02-19] MEDS: METOPROLOL SUCCINATE 25 MG TABLET PO SCH (21:27)
[2020-02-20] MEDS: SODIUM CHLORIDE FLUSH 0.9% 10 ML SYRINGE IVP SCH ×3 (00:20→17:32)
[2020-02-20 05:24] LABS: HGB - HEMOGLOBIN 12.1 g/dL (14.0-18.0); MEAN CORPUSCULAR HEMOGLOBIN 33.5 pg (27.0-31.0); MEAN CORPUSCULAR HGB CONC 32.9 g/dL (32.0-36.0); MEAN CORPUSCULAR VOLUME 101.9 fL (80.0-94.0); MEAN PLATELET VOLUME 9.8 fL (7.4-11.4); RED BLOOD COUNT 3.61 10^6/uL (4.70-6.10); RED CELL DISTRIBUTION WIDTH 12.9 % (12.0-15.0); WHITE BLOOD COUNT 6.3 x10^3/uL (4.8-10.8)
[2020-02-20 05:26] LABS: VBG PH 7.464 (7.31-7.41)
[2020-02-20] MEDS: MIN OIL/DIMETHICON/COCONUT OIL 92 GM TUBE TOP PRN (05:26)
[2020-02-20] MEDS: PHENAZOPYRIDINE 100 MG TABLET PO SCH ×3 (05:26→21:46)
[2020-02-20] MEDS: metFORMIN 500 MG TABLET PO SCH ×2 (07:51→17:30)
[2020-02-20] MEDS: INSULIN ASPART 300 UNIT/3 ML PEN SUBQ SCH ×7 (07:52→21:47)
[2020-02-20] MEDS: FERROUS GLUCONATE 324 MG TABLET PO SCH (07:53)
[2020-02-20] MEDS: buPROPion SR 150 MG TABLET PO SCH ×2 (08:33→21:46)
[2020-02-20] MEDS: ENOXAPARIN 40 MG/0.4 ML SYRINGE SUBQ SCH (08:33)
[2020-02-20] MEDS: THIAMINE 100 MG TABLET PO SCH (08:33)
[2020-02-20] MEDS: CHOLECALCIFEROL 25 MCG TABLET PO SCH (08:34)
[2020-02-20] MEDS: FAMOTIDINE 20 MG TABLET PO SCH ×2 (08:35→21:46)
[2020-02-20] MEDS: FUROSEMIDE 40 MG TABLET PO SCH (08:35)
[2020-02-20] MEDS: SPIRONOLACTONE 25 MG TABLET PO SCH (08:35)
[2020-02-20] MEDS: PRENATAL VITAMIN TABLET PO SCH (08:35)
[2020-02-20] MEDS: OMEGA-3 ACID ETHYL ESTERS 1 GM CAPSULE PO SCH (08:36)
[2020-02-20] MEDS: ASPIRIN EC 81 MG TABLET PO SCH (08:36)
[2020-02-20] MEDS: HYDROCORTISONE 1% CREAM 28 GM TUBE TOP SCH (08:36)
[2020-02-20] MEDS: BUDESONIDE 0.5 MG/2 ML NEB INH SCH ×2 (10:30→19:00)
[2020-02-20] MEDS: ALBUTEROL NEB 2.5 MG/3 ML INH PRN ×2 (10:31→22:40)
[2020-02-20] MEDS ORDERED: SPIRONOLACTONE 25 MG TABLET PO SCH (13:00)
--- NOTE | 2020-02-20 14:37 | PROVIDER PROGRESS NOTE ---
Assessment/Plan - Problem List (1) Anasarca Assessment/Plan: On clinical exam, the anasarca (pitting edema of his skin) has decreased down to the level of the hips. It was at the level of his umbilicus for the past 2 days and at admission it was at the level of his nipple line. Today he is starting p.o. Lasix plus po Spironolactone. Continue to follow daily weights, I's and O's, fluid restriction with his diet (2) Ascites Assessment/Plan: The abdomen is reaccumulating ascites fluid by my clinical exam. That is probably why his weight is not decreasing consistently, because of this reaccumulation. I discussed with him that this will continue to recur because of his liver and is alcohol intake history. Patient understood. Continue with diuresis for management of ascites plus anasarca Follow BMP and magnesium daily or qod (3) Anemia Qualifiers: Anemia type: iron deficiency Assessment/Plan: He was started on oral iron supplement (4) Alcohol abuse Assessment/Plan: Is on oral thiamine and multivitamins. Today he told me he is not planning on resuming alcohol abuse (5) Swelling of penis Assessment/Plan: Today the penis has the same appearance as yesterday with moderate swelling. Continues to request that the Blunt be left in because of difficulty urinating when he had such severe swelling at admission. Contiue po Lasix Will be increasing the Spironolactone dose (6) Swelling of the testicles Assessment/Plan: Today his testicular size appears larger to me. Today is the first day he has not gotten IV Lasix. Try to continue with p.o. diuretics. Will be increasing the Spironolactone dose (7) Hyponatremia Assessment/Plan: Follow BMP every day or every other day (8) Diabetes mellitus, insulin dependent (IDDM), uncontrolled Assessment/Plan: His Metformin was restarted in order to achieve better control Sinew with long-acting and nutritional insulin and sliding scale coverage (9) Wound of right leg Assessment/Plan: This will need to be managed as an outpatient since the skin is intact, as per the recommendations from the [facility] wound nurse, via telephone (she documented that). (10) Hypotension Assessment/Plan: Resolved. (11) Alcohol withdrawal Assessment/Plan: Resolved (12) Rash Assessment/Plan: Resolved Good hygiene was advised, he needs a shower intermittently, which was ordered. - Current Meds Current Meds: Current Medications Generic Name Dose Route Start Last Admin Trade Name Freq PRN Reason Stop Dose Admin Albuterol 2.5 mg 02/16/20 07:40 02/20/20 10:31 Albuterol Neb 2.5 Mg/3 Ml INH 2.5 mg RTQ4H PRN Administration Wheezing Aspirin 81 mg 02/16/20 09:00 02/20/20 08:36 Aspirin Ec 81 Mg Tablet PO 81 mg DAILY JOY Administration Budesonide 0.5 mg 02/16/20 19:00 02/20/20 10:30 Budesonide 0.5 Mg/2 Ml Neb INH 0.5 mg RTBID JOY Administration Bupropion HCl 150 mg 02/15/20 21:00 02/20/20 08:33 Bupropion Sr 150 Mg Tablet PO 150 mg BID JOY Administration Cholecalciferol 50 mcg 02/17/20 09:00 02/20/20 08:34 Cholecalciferol 25 Mcg Tablet PO 50 mcg DAILY JOY Administration Enoxaparin Sodium 40 mg 02/19/20 09:00 02/20/20 08:33 Enoxaparin 40 Mg/0.4 Ml Syringe SUBQ 40 mg DAILY JOY Administration Famotidine 20 mg 02/15/20 21:00 02/20/20 08:35 Famotidine 20 Mg Tablet PO 20 mg BID JOY Administration Ferrous Gluconate 324 mg 02/17/20 09:07 02/20/20 07:53 Ferrous Gluconate 324 Mg Tablet PO 324 mg DAILYWM JOY Administration Insulin Aspart 2 - 10 unit 02/16/20 21:00 02/20/20 11:50 Insulin Aspart 300 Unit/3 Ml Pen SUBQ 4 unit 0800,1200,1700,2100 JOY Administration Protocol Insulin Aspart 12 unit 02/18/20 12:00 02/20/20 11:51 Insulin Aspart 300 Unit/3 Ml Pen SUBQ 12 unit TIDWM JOY Administration Insulin Glargine 65 unit 02/18/20 21:00 02/19/20 21:25 Insulin Glargine 300 Unit/3 Ml Pen SUBQ 65 unit HS JOY Administration Metformin HCl 1,000 mg 02/19/20 17:00 02/20/20 07:51 Metformin 500 Mg Tablet PO 1,000 mg BIDWM JOY Administration Metoprolol Succinate 25 mg 02/17/20 21:00 02/19/20 21:27 Metoprolol Succinate 25 Mg Tablet PO 25 mg QPM JOY Administration Mineral Oil 1 applic 02/16/20 21:35 02/20/20 05:26 Min Oil/Dimethicon/Coconut Oil 92 Gm Tube TOP 1 applic PRN PRN Administration Skin Care [id number] Ethyl Esters 1 gm 02/17/20 09:00 02/20/20 08:36 [place]-3 Acid Ethyl Esters 1 Gm Capsule PO 1 gm DAILY JOY Administration Phenazopyridine HCl 100 mg 02/16/20 14:00 02/20/20 13:30 Phenazopyridine 100 Mg Tablet PO 100 mg TID JOY Administration Multivit/Folic Acid/Iron 1 tab 02/16/20 09:00 02/20/20 08:35 Vitamin Tablet PO 1 tab DAILY JOY Administration Sodium Chloride 10 ml 02/15/20 17:00 02/20/20 08:36 Sodium Chloride Flush 0.9% 10 Ml Syringe IVP 10 ml 0100,0900,1700 JOY Administration Sodium Chloride 10 ml 02/15/20 12:30 02/16/20 14:04 Sodium Chloride Flush 0.9% 10 Ml Syringe IVP 10 ml PRN PRN Administration NEEDED PER PROVIDER ORDERS Spironolactone 25 mg 02/20/20 13:00 02/20/20 13:30 Spironolactone 25 Mg Tablet PO 02/20/20 23:00 25 mg 0800,1300 JOY Administration Thiamine HCl 100 mg 02/16/20 09:00 02/20/20 08:33 Thiamine 100 Mg Tablet PO 100 mg DAILY JOY Administration - Lab Result Fish Bone Diagrams: 02/20/20 05:15 02/19/20 05:02 - Additional Planning My Orders: My Active Orders 02/19/20 17:00 metFORMIN [Glucophage] 1,000 mg PO BIDWM 02/20/20 10:26 Hydrocortisone 1% Cream [Hydrocortisone] 1 applic TOP BID PRN 02/20/20 13:00 Spironolactone [Aldactone] 25 mg PO 0800,1300 02/20/20 14:36 Shower [RC] ONCE 02/20/20 14:37 Miscellaenous Nursing Order [RC] QSHIFT 02/21/20 08:00 Spironolactone [Aldactone] 50 mg PO 0800,1300 02/21/20 09:00 Furosemide [Lasix] 20 mg PO DAILY Objective Vital Signs: Vital Signs - 24 hr 02/19/20 02/19/20 02/19/20 15:29 16:34 19:21 Temperature 36.6 C Heart Rate 89 88 Heart Rate [ 87 Brachial] Respiratory 18 20 Rate Blood Pressure 116/68 [Left Brachial artery] Blood Pressure [Right Brachial artery] O2 Saturation 96 02/19/20 02/19/20 02/20/20 20:31 23:53 04:04 Temperature 37.1 C 36.9 C 36.9 C Heart Rate Heart Rate [ 88 64 85 Brachial] Respiratory 18 18 18 Rate Blood Pressure 118/63 131/77 H [Left Brachial artery] Blood Pressure 119/64 [Right Brachial artery] O2 Saturation 95 94 97 02/20/20 02/20/20 02/20/20 08:10 10:31 11:38 Temperature 36.8 C 36.9 C Heart Rate 80 Heart Rate [ 78 117 H Brachial] Respiratory 18 22 18 Rate Blood Pressure [Left Brachial artery] Blood Pressure 104/56 L 122/74 [Right Brachial artery] O2 Saturation 94 96 Oxygen O2 Source Room air I&O (Last 24 Hrs): Intake and Output Totals x24h 02/18/20 02/19/20 02/20/20 23:59 23:59 23:59 Intake Total 1010 770 Output Total 1710 1700 1100 Balance -700 -930 -1100 General: Alert, Oriented x3 HEENT: Mucous membr. moist/pink, Other (Edentulous) Neck: Supple Neuro: Alert, Non Focal Cardiovascular: Regular rate Respiratory: No respiratory distress Abdomen: Other (Marek distended and more tense than yesterday) Extremities: Other (3+ pitting edema to the level of the hips) - Results Results: Laboratory Results WBC 6.3 x10^3/uL (4.8-10.8) 02/20/20 05:15 RBC 3.61 10^6/uL (4.70-6.10) L 02/20/20 05:15 Hgb 12.1 g/dL (14.0-18.0) L 02/20/20 05:15 Hct 36.8 % (42.0-52.0) L 02/20/20 05:15 MCV 101.9 fL (80.0-94.0) H 02/20/20 05:15 MCH 33.5 pg (27.0-31.0) H 02/20/20 05:15 MCHC 32.9 g/dL (32.0-36.0) 02/20/20 05:15 RDW 12.9 % (12.0-15.0) 02/20/20 05:15 Plt Count 181 10^3/uL (130-450) 02/20/20 05:15 MPV 9.8 fL (7.4-11.4) 02/20/20 05:15 Neut # (Auto) 4.9 10^3/uL (1.5-6.6) 02/17/20 04:20 Lymph # (Auto) 1.3 10^3/uL (1.5-3.5) L 02/17/20 04:20 [place] # (Auto) 0.8 10^3/uL (0.0-1.0) 02/17/20 04:20 Eos # (Auto) 0.3 10^3/uL (0.0-0.7) 02/17/20 04:20 Baso # (Auto) 0.1 10^3/uL (0.0-0.1) 02/17/20 04:20 Absolute Nucleated RBC 0.00 x10^3/uL 02/17/20 04:20 Nucleated RBC % 0.0 /100WBC 02/17/20 04:20 PT 14.6 secs (9.9-12.6) H 02/19/20 05:02 INR 1.3 (0.8-1.2) H 02/19/20 05:02 APTT 30.7 secs (24.9-33.3) 02/18/20 04:15 VBG pH 7.464 (7.31-7.41) H 02/20/20 05:15 Ionized Calcium 1.12 mmol/L (1.15-1.33) L 02/20/20 05:15 Sodium 133 mmol/L (135-145) L 02/19/20 05:02 Potassium 3.8 mmol/L (3.5-5.0) 02/19/20 05:02 Chloride 101 mmol/L (101-111) 02/19/20 05:02 Carbon Dioxide 26 mmol/L (21-32) 02/19/20 05:02 Anion Gap 6.0 (6-13) 02/19/20 05:02 BUN 27 mg/dL (6-20) H 02/19/20 05:02 Creatinine 1.0 mg/dL (0.6-1.2) 02/19/20 05:02 Estimated GFR (MDRD) 79 (>89) L 02/19/20 05:02 Glucose 255 mg/dL (70-100) H 02/19/20 05:02 POC Whole Bld Glucose 192 mg/dL (70 - 100) H 02/20/20 11:30 Estimat Average Glucose 174 mg/dL (70-100) H 02/16/20 04:05 Hemoglobin A1c % 7.7 % (4.27-6.07) H 02/16/20 04:05 Calcium 8.5 mg/dL (8.5-10.3) 02/19/20 05:02 Phosphorus 4.0 mg/dL (2.5-4.6) 02/19/20 05:02 Magnesium 1.8 mg/dL (1.7-2.8) 02/20/20 05:15 Iron 37 ug/dL (45-182) L 02/17/20 04:20 TIBC 207 ug/dL (250-450) L 02/17/20 04:20 % Saturation 18 % (20-50) L 02/17/20 04:20 Transferrin 148 mg/dL (180-329) L 02/17/20 04:20 Total Bilirubin 1.7 mg/dL (0.2-1.0) H 02/19/20 05:02 GGT 166 IU/L (8-55) H 02/16/20 04:05 AST 47 IU/L (10-42) H 02/19/20 05:02 ALT 21 IU/L (10-60) 02/19/20 05:02 Alkaline Phosphatase 79 IU/L (42-121) 02/19/20 05:02 Ammonia 38.8 umol/L (7-35) H 02/18/20 04:15 Troponin I High Sens 8.0 ng/L (2.3-19.7) 02/15/20 10:30 Troponin I High Sens 8.7 ng/L (2.3-19.7) 02/15/20 10:30 C-Reactive Protein 5.7 mg/dL (0-1.0) H 02/15/20 10:54 Total Protein 5.9 g/dL (6.7-8.2) L 02/19/20 05:02 Albumin 2.2 g/dL (3.2-5.5) L 02/19/20 05:02 Globulin 3.7 g/dL (2.1-4.2) 02/19/20 05:02 Albumin/Globulin Ratio 0.6 (1.0-2.2) L 02/19/20 05:02 Lipase 81 U/L (22-51) H 02/17/20 04:20 Vitamin B12 788 pg/mL (180-914) 02/17/20 04:20 Folate 10.40 ng/mL (5.90 - >24.8) 02/17/20 04:20 Urine Color YELLOW 02/15/20 12:00 Urine Clarity HAZY (CLEAR) 02/15/20 12:00 Urine pH 6.0 PH (5.0-7.5) 02/15/20 12:00 Ur Specific [place] 1.015 (1.002-1.030) 02/15/20 12:00 Urine Protein TRACE mg/dL (NEGATIVE) 02/15/20 12:00 Urine Glucose (UA) 500 mg/dL (NEGATIVE) H 02/15/20 12:00 Urine Ketones NEGATIVE mg/dL (NEGATIVE) 02/15/20 12:00 Urine Occult Blood MODERATE (NEGATIVE) H 02/15/20 12:00 Urine Nitrite NEGATIVE (NEGATIVE) 02/15/20 12:00 Urine Bilirubin NEGATIVE (NEGATIVE) 02/15/20 12:00 Urine Urobilinogen 4 E.U./dL (NORMAL) H 02/15/20 12:00 Ur Leukocyte Esterase NEGATIVE (NEGATIVE) 02/15/20 12:00 Urine RBC 6-10 /HPF (0-5) H 02/15/20 12:00 Urine WBC 0-3 /HPF (0-3) 02/15/20 12:00 Ur Squamous Epith Cells NONE SEEN (<= Few) 02/15/20 12:00 Urine Bacteria None Seen /HPF (None Seen) 02/15/20 12:00 Ur Microscopic Review INDICATED 02/15/20 12:00 Fluid Source PERITONEAL 02/16/20 15:30 Fluid Color YELLOW 02/16/20 15:30 Fluid Clarity CLEAR 02/16/20 15:30 Fluid WBC 31 /mm^3 02/16/20 15:30 Fluid RBC 74 /mm^3 02/16/20 15:30 Fluid Neutrophils % 6 % 02/16/20 15:30 Fluid Lymphocytes % 38 % 02/16/20 15:30 Fluid Monocytes % 11 % 02/16/20 15:30 Fluid Macrophages % 18 % 02/16/20 15:30 Fld Mesothelial Cell % 27 % 02/16/20 15:30 Nasal Screen MRSA (PCR) NEGATIVE (NEGATIVE) 02/15/20 16:43 Coronavirus (PCR) NEGATIVE 02/15/20 16:43
[2020-02-20] MEDS: METOPROLOL SUCCINATE 25 MG TABLET PO SCH (21:46)
[2020-02-20] MEDS: INSULIN GLARGINE 300 UNIT/3 ML PEN SUBQ SCH (21:50)
[2020-02-21] MEDS: SODIUM CHLORIDE FLUSH 0.9% 10 ML SYRINGE IVP SCH ×3 (00:17→17:10)
[2020-02-21] MEDS: PHENAZOPYRIDINE 100 MG TABLET PO SCH ×3 (05:26→20:56)
[2020-02-21 05:44] LABS: CALCIUM 8.8 mg/dL (8.5-10.3); CREATININE 0.9 mg/dL (0.6-1.2); MAGNESIUM 1.8 mg/dL (1.7-2.8)
[2020-02-21] MEDS: BUDESONIDE 0.5 MG/2 ML NEB INH SCH ×2 (07:14→17:55)
[2020-02-21] MEDS: SPIRONOLACTONE 25 MG TABLET PO SCH ×2 (08:04→12:40)
[2020-02-21] MEDS: INSULIN ASPART 300 UNIT/3 ML PEN SUBQ SCH ×7 (08:04→20:55)
[2020-02-21] MEDS: FERROUS GLUCONATE 324 MG TABLET PO SCH (08:04)
[2020-02-21] MEDS: metFORMIN 500 MG TABLET PO SCH ×2 (08:08→17:09)
[2020-02-21] MEDS: ASPIRIN EC 81 MG TABLET PO SCH (09:16)
[2020-02-21] MEDS: buPROPion SR 150 MG TABLET PO SCH ×2 (09:16→20:56)
[2020-02-21] MEDS: OMEGA-3 ACID ETHYL ESTERS 1 GM CAPSULE PO SCH (09:16)
[2020-02-21] MEDS: ENOXAPARIN 40 MG/0.4 ML SYRINGE SUBQ SCH (09:16)
[2020-02-21] MEDS: CHOLECALCIFEROL 25 MCG TABLET PO SCH (09:16)
[2020-02-21] MEDS: PRENATAL VITAMIN TABLET PO SCH (09:16)
[2020-02-21] MEDS: FAMOTIDINE 20 MG TABLET PO SCH ×2 (09:16→20:56)
[2020-02-21] MEDS: FUROSEMIDE 20 MG TABLET PO SCH (09:18)
[2020-02-21] MEDS: THIAMINE 100 MG TABLET PO SCH (09:18)
[2020-02-21] MEDS ORDERED: COD LIVER OIL/ZINC OXIDE 113 GM TUBE TOP PRN (11:40)
--- NOTE | 2020-02-21 14:07 | PROVIDER PROGRESS NOTE ---
Assessment/Plan - Problem List (1) Anasarca Assessment/Plan: His weight dropped approximately 3 kg since admission and today went up again. The exam of skin pitting has improved from anasarca and pitting up to the level of his nipple on admission, today is down to the mid thighs. Continue with Lasix and the higher doses of spironolactone (2) Ascites Assessment/Plan: His abdomen is more tense and ascites is reaccumulating. This also explains the reason for weight gain despite good negative I's and O's. Will request another paracentesis US guided by IR (3) Anemia Qualifiers: Anemia type: iron deficiency Assessment/Plan: Oral iron replacement started several days ago (4) Alcohol abuse Assessment/Plan: He is on daily thiamine and MOV. He verbalizes to me that he does not plan to resume abusing alcohol because this amount of edema and inability to urinate, scared him (5) Swelling of penis Assessment/Plan: There is unchanged moderate to severe swelling of the penis We will leave in the Blunt since the penile edema was obstructing urine outflow (6) Swelling of the testicles Assessment/Plan: The testicles were getting better each day, yesterday it started to enlarge and today even further enlargement. It is in parallel with the ascites reaccumulating. Continue Lasix and spironolactone (7) Diabetes mellitus, insulin dependent (IDDM), uncontrolled Assessment/Plan: He is on Metformin, long-acting and short acting insulin, sliding scale, carb controlled diet (8) Wound of right leg Assessment/Plan: The [facility] [place] nurse looked at the admission images done by nursing and said that since both wounds are dry and not open, the skin be evaluated as an outpatient in the [facility] wound clinic. This was passed on to the patient, several days ago (9) Hypotension Assessment/Plan: He had 2 days of marked hypotension when he was getting IV twice daily Lasix and had his first paracentesis. Now his blood pressure is "soft". (10) Alcohol withdrawal Assessment/Plan: Resolved (11) Rash Assessment/Plan: Improved after 2 shoowers and topical Hydrocortisone now prn (12) Hyponatremia Assessment/Plan: Resolved with diuresis and free water restriction - Current Meds Current Meds: Current Medications Generic Name Dose Route Start Last Admin Trade Name Freq PRN Reason Stop Dose Admin Albuterol 2.5 mg 02/16/20 07:40 02/20/20 22:40 Albuterol Neb 2.5 Mg/3 Ml INH 2.5 mg RTQ4H PRN Administration Wheezing Aspirin 81 mg 02/16/20 09:00 02/21/20 09:16 Aspirin Ec 81 Mg Tablet PO 81 mg DAILY JOY Administration Budesonide 0.5 mg 02/16/20 19:00 02/21/20 07:14 Budesonide 0.5 Mg/2 Ml Neb INH 0.5 mg RTBID JOY Administration Bupropion HCl 150 mg 02/15/20 21:00 02/21/20 09:16 Bupropion Sr 150 Mg Tablet PO 150 mg BID JOY Administration Cholecalciferol 50 mcg 02/17/20 09:00 02/21/20 09:16 Cholecalciferol 25 Mcg Tablet PO 50 mcg DAILY JOY Administration Enoxaparin Sodium 40 mg 02/19/20 09:00 02/21/20 09:16 Enoxaparin 40 Mg/0.4 Ml Syringe SUBQ 40 mg DAILY JOY Administration Famotidine 20 mg 02/15/20 21:00 02/21/20 09:16 Famotidine 20 Mg Tablet PO 20 mg BID JOY Administration Ferrous Gluconate 324 mg 02/17/20 09:07 02/21/20 08:04 Ferrous Gluconate 324 Mg Tablet PO 324 mg DAILYWM JOY Administration Furosemide 20 mg 02/21/20 09:00 02/21/20 09:18 Furosemide 20 Mg Tablet PO 20 mg DAILY JOY Administration Insulin Aspart 2 - 10 unit 02/16/20 21:00 02/21/20 12:33 Insulin Aspart 300 Unit/3 Ml Pen SUBQ Not Given 0800,1200,1700,2100 [facility] Protocol Insulin Aspart 12 unit 02/18/20 12:00 02/21/20 12:41 Insulin Aspart 300 Unit/3 Ml Pen SUBQ 12 unit TIDWM JOY Administration Insulin Glargine 65 unit 02/18/20 21:00 02/20/20 21:50 Insulin Glargine 300 Unit/3 Ml Pen SUBQ 65 unit HS JOY Administration Metformin HCl 1,000 mg 02/19/20 17:00 02/21/20 08:08 Metformin 500 Mg Tablet PO 1,000 mg BIDWM JOY Administration Metoprolol Succinate 25 mg 02/17/20 21:00 02/20/20 21:46 Metoprolol Succinate 25 Mg Tablet PO 25 mg QPM JOY Administration Mineral Oil 1 applic 02/16/20 21:35 02/20/20 05:26 Min Oil/Dimethicon/Coconut Oil 92 Gm Tube TOP 1 applic PRN PRN Administration Skin Care [id number] Ethyl Esters 1 gm 02/17/20 09:00 02/21/20 09:16 [place]-3 Acid Ethyl Esters 1 Gm Capsule PO 1 gm DAILY JOY Administration Phenazopyridine HCl 100 mg 02/16/20 14:00 02/21/20 13:54 Phenazopyridine 100 Mg Tablet PO 100 mg TID JOY Administration Multivit/Folic Acid/Iron 1 tab 02/16/20 09:00 02/21/20 09:16 Vitamin Tablet PO 1 tab DAILY JOY Administration Sodium Chloride 10 ml 02/15/20 17:00 02/21/20 09:19 Sodium Chloride Flush 0.9% 10 Ml Syringe IVP 10 ml 0100,0900,1700 JOY Administration Sodium Chloride 10 ml 02/15/20 12:30 02/16/20 14:04 Sodium Chloride Flush 0.9% 10 Ml Syringe IVP 10 ml PRN PRN Administration NEEDED PER PROVIDER ORDERS Spironolactone 50 mg 02/21/20 08:00 02/21/20 12:40 Spironolactone 25 Mg Tablet PO 50 mg 0800,1300 JOY Administration Thiamine HCl 100 mg 02/16/20 09:00 02/21/20 09:18 Thiamine 100 Mg Tablet PO 100 mg DAILY JOY Administration - Lab Result Fish Bone Diagrams: 02/20/20 05:15 02/21/20 05:21 - Additional Planning My Orders: My Active Orders 02/20/20 14:36 Shower [RC] ONCE 02/20/20 14:37 Miscellaenous Nursing Order [RC] QSHIFT 02/21/20 08:00 Spironolactone [Aldactone] 50 mg PO 0800,1300 02/21/20 09:00 Furosemide [Lasix] 20 mg PO DAILY 02/21/20 11:40 Cod Liver Oil/Zinc Oxide [Desitin] 113 gm TOP PRN PRN 02/21/20 14:04 Abdominal Paracentesis [US] Routine Subjective - Subjective Patient Reports: Feeling Better, Other (He has more energy and has been working with PT daily. His abdomen is worse however, getting more distended and more tense again) Objective Vital Signs: Vital Signs - 24 hr 02/20/20 02/20/20 02/20/20 15:00 16:22 20:27 Temperature 37.0 C 37.2 C Heart Rate 84 Heart Rate [ 85 87 Brachial] Heart Rate [ Sitting] Respiratory 16 18 18 Rate Blood Pressure [Left Brachial artery] Blood Pressure 116/68 133/68 H [Right Brachial artery] Blood Pressure [Sitting] O2 Saturation 96 96 02/20/20 02/21/20 02/21/20 22:45 00:22 04:06 Temperature 37.1 C 36.8 C Heart Rate 87 Heart Rate [ 90 84 Brachial] Heart Rate [ Sitting] Respiratory 18 18 18 Rate Blood Pressure [Left Brachial artery] Blood Pressure 131/67 H 110/72 [Right Brachial artery] Blood Pressure [Sitting] O2 Saturation 96 95 02/21/20 02/21/20 02/21/20 07:16 09:00 11:25 Temperature 36.4 C L Heart Rate 80 Heart Rate [ 80 Brachial] Heart Rate [ 80 Sitting] Respiratory 18 20 Rate Blood Pressure [Left Brachial artery] Blood Pressure 105/63 [Right Brachial artery] Blood Pressure 129/71 [Sitting] O2 Saturation 96 02/21/20 11:52 Temperature 36.4 C L Heart Rate Heart Rate [ 79 Brachial] Heart Rate [ Sitting] Respiratory 18 Rate Blood Pressure 129/71 [Left Brachial artery] Blood Pressure [Right Brachial artery] Blood Pressure [Sitting] O2 Saturation 98 Oxygen O2 Source Room air I&O (Last 24 Hrs): Intake and Output Totals x24h 02/19/20 02/20/20 02/21/20 23:59 23:59 23:59 Intake Total 770 300 240 Output Total 1700 1500 350 Balance -930 -1200 -110 General: Alert, Oriented x3 HEENT: Mucous membr. moist/pink, Other (Edentulous) Neck: Supple Neuro: Alert, Non Focal Cardiovascular: Regular rate Respiratory: No respiratory distress Abdomen: Other (Moderately distended, very tense today) Extremities: Other (3+ pitting edema is up to his mid thighs today) - Results Results: Laboratory Results WBC 6.3 x10^3/uL (4.8-10.8) 02/20/20 05:15 RBC 3.61 10^6/uL (4.70-6.10) L 02/20/20 05:15 Hgb 12.1 g/dL (14.0-18.0) L 02/20/20 05:15 Hct 36.8 % (42.0-52.0) L 02/20/20 05:15 MCV 101.9 fL (80.0-94.0) H 02/20/20 05:15 MCH 33.5 pg (27.0-31.0) H 02/20/20 05:15 MCHC 32.9 g/dL (32.0-36.0) 02/20/20 05:15 RDW 12.9 % (12.0-15.0) 02/20/20 05:15 Plt Count 181 10^3/uL (130-450) 02/20/20 05:15 MPV 9.8 fL (7.4-11.4) 02/20/20 05:15 Neut # (Auto) 4.9 10^3/uL (1.5-6.6) 02/17/20 04:20 Lymph # (Auto) 1.3 10^3/uL (1.5-3.5) L 02/17/20 04:20 Lamb # (Auto) 0.8 10^3/uL (0.0-1.0) 02/17/20 04:20 Eos # (Auto) 0.3 10^3/uL (0.0-0.7) 02/17/20 04:20 Baso # (Auto) 0.1 10^3/uL (0.0-0.1) 02/17/20 04:20 Absolute Nucleated RBC 0.00 x10^3/uL 02/17/20 04:20 Nucleated RBC % 0.0 /100WBC 02/17/20 04:20 PT 14.6 secs (9.9-12.6) H 02/19/20 05:02 INR 1.3 (0.8-1.2) H 02/19/20 05:02 APTT 30.7 secs (24.9-33.3) 02/18/20 04:15 VBG pH 7.464 (7.31-7.41) H 02/20/20 05:15 Ionized Calcium 1.12 mmol/L (1.15-1.33) L 02/20/20 05:15 Sodium 138 mmol/L (135-145) 02/21/20 05:21 Potassium 4.3 mmol/L (3.5-5.0) 02/21/20 05:21 Chloride 104 mmol/L (101-111) 02/21/20 05:21 Carbon Dioxide 28 mmol/L (21-32) 02/21/20 05:21 Anion Gap 6.0 (6-13) 02/21/20 05:21 BUN 25 mg/dL (6-20) H 02/21/20 05:21 Creatinine 0.9 mg/dL (0.6-1.2) 02/21/20 05:21 Estimated GFR (MDRD) 89 (>89) 02/21/20 05:21 Glucose 141 mg/dL (70-100) H 02/21/20 05:21 POC Whole Bld Glucose 125 mg/dL (70 - 100) H 02/21/20 11:36 Estimat Average Glucose 174 mg/dL (70-100) H 02/16/20 04:05 Hemoglobin A1c % 7.7 % (4.27-6.07) H 02/16/20 04:05 Calcium 8.8 mg/dL (8.5-10.3) 02/21/20 05:21 Phosphorus 4.0 mg/dL (2.5-4.6) 02/19/20 05:02 Magnesium 1.8 mg/dL (1.7-2.8) 02/21/20 05:21 Iron 37 ug/dL (45-182) L 02/17/20 04:20 TIBC 207 ug/dL (250-450) L 02/17/20 04:20 % Saturation 18 % (20-50) L 02/17/20 04:20 Transferrin 148 mg/dL (180-329) L 02/17/20 04:20 Total Bilirubin 1.7 mg/dL (0.2-1.0) H 02/19/20 05:02 GGT 166 IU/L (8-55) H 02/16/20 04:05 AST 47 IU/L (10-42) H 02/19/20 05:02 ALT 21 IU/L (10-60) 02/19/20 05:02 Alkaline Phosphatase 79 IU/L (42-121) 02/19/20 05:02 Ammonia 38.8 umol/L (7-35) H 02/18/20 04:15 Troponin I High Sens 8.0 ng/L (2.3-19.7) 02/15/20 10:30 Troponin I High Sens 8.7 ng/L (2.3-19.7) 02/15/20 10:30 C-Reactive Protein 5.7 mg/dL (0-1.0) H 02/15/20 10:54 Total Protein 5.9 g/dL (6.7-8.2) L 02/19/20 05:02 Albumin 2.2 g/dL (3.2-5.5) L 02/19/20 05:02 Globulin 3.7 g/dL (2.1-4.2) 02/19/20 05:02 Albumin/Globulin Ratio 0.6 (1.0-2.2) L 02/19/20 05:02 Lipase 81 U/L (22-51) H 02/17/20 04:20 Vitamin B12 788 pg/mL (180-914) 02/17/20 04:20 Folate 10.40 ng/mL (5.90 - >24.8) 02/17/20 04:20 Urine Color YELLOW 02/15/20 12:00 Urine Clarity HAZY (CLEAR) 02/15/20 12:00 Urine pH 6.0 PH (5.0-7.5) 02/15/20 12:00 Ur Specific [place] 1.015 (1.002-1.030) 02/15/20 12:00 Urine Protein TRACE mg/dL (NEGATIVE) 02/15/20 12:00 Urine Glucose (UA) 500 mg/dL (NEGATIVE) H 02/15/20 12:00 Urine Ketones NEGATIVE mg/dL (NEGATIVE) 02/15/20 12:00 Urine Occult Blood MODERATE (NEGATIVE) H 02/15/20 12:00 Urine Nitrite NEGATIVE (NEGATIVE) 02/15/20 12:00 Urine Bilirubin NEGATIVE (NEGATIVE) 02/15/20 12:00 Urine Urobilinogen 4 E.U./dL (NORMAL) H 02/15/20 12:00 Ur Leukocyte Esterase NEGATIVE (NEGATIVE) 02/15/20 12:00 Urine RBC 6-10 /HPF (0-5) H 02/15/20 12:00 Urine WBC 0-3 /HPF (0-3) 02/15/20 12:00 Ur Squamous Epith Cells NONE SEEN (<= Few) 02/15/20 12:00 Urine Bacteria None Seen /HPF (None Seen) 02/15/20 12:00 Ur Microscopic Review INDICATED 02/15/20 12:00 Fluid Source PERITONEAL 02/16/20 15:30 Fluid Color YELLOW 02/16/20 15:30 Fluid Clarity CLEAR 02/16/20 15:30 Fluid WBC 31 /mm^3 02/16/20 15:30 Fluid RBC 74 /mm^3 02/16/20 15:30 Fluid Neutrophils % 6 % 02/16/20 15:30 Fluid Lymphocytes % 38 % 02/16/20 15:30 Fluid Monocytes % 11 % 02/16/20 15:30 Fluid Macrophages % 18 % 02/16/20 15:30 Fld Mesothelial Cell % 27 % 02/16/20 15:30 Nasal Screen MRSA (PCR) NEGATIVE (NEGATIVE) 02/15/20 16:43 Coronavirus (PCR) NEGATIVE 02/15/20 16:43
[2020-02-21] MEDS: ALBUTEROL NEB 2.5 MG/3 ML INH PRN (17:55)
[2020-02-21] MEDS: LIDOCAINE PATCH 5% TOP PRN (18:52)
[2020-02-21] MEDS: METOPROLOL SUCCINATE 25 MG TABLET PO SCH (20:56)
[2020-02-21] MEDS: INSULIN GLARGINE 300 UNIT/3 ML PEN SUBQ SCH (20:58)
[2020-02-21] MEDS: HYDROCORTISONE 1% CREAM 28 GM TUBE TOP PRN (20:59)
[2020-02-22] MEDS: SODIUM CHLORIDE FLUSH 0.9% 10 ML SYRINGE IVP SCH ×3 (00:24→17:16)
[2020-02-22 04:55] LABS: BASOPHILS # (AUTO) 0.1 10^3/uL (0.0-0.1); BASOPHILS % (AUTO) 1.8 %; EOSINOPHILS # (AUTO) 0.3 10^3/uL (0.0-0.7); EOSINOPHILS % (AUTO) 3.8 %; HGB - HEMOGLOBIN 11.4 g/dL (14.0-18.0); LYMPHOCYTES # (AUTO) 1.6 10^3/uL (1.5-3.5); LYMPHOCYTES % (AUTO) 23.4 %; MEAN CORPUSCULAR HEMOGLOBIN 33.6 pg (27.0-31.0); MEAN CORPUSCULAR HGB CONC 32.4 g/dL (32.0-36.0); MEAN CORPUSCULAR VOLUME 103.8 fL (80.0-94.0); MEAN PLATELET VOLUME 9.7 fL (7.4-11.4); MONOCYTES # (AUTO) 0.9 10^3/uL (0.0-1.0); MONOCYTES % (AUTO) 13.4 %; NEUTROPHILS # (AUTO) 3.8 10^3/uL (1.5-6.6); NEUTROPHILS % (AUTO) 57.1 %; PLT - PLATELET COUNT 181 10^3/uL (130-450); RED BLOOD COUNT 3.39 10^6/uL (4.70-6.10); RED CELL DISTRIBUTION WIDTH 13.2 % (12.0-15.0); WHITE BLOOD COUNT 6.6 x10^3/uL (4.8-10.8)
[2020-02-22 05:06] LABS: CALCIUM 9.1 mg/dL (8.5-10.3)
[2020-02-22 05:19] LABS: INR 1.2 (0.8-1.2); PT - PROTHROMBIN TIME 13.6 secs (9.9-12.6)
[2020-02-22] MEDS: PHENAZOPYRIDINE 100 MG TABLET PO SCH ×3 (05:24→20:47)
[2020-02-22 05:27] LABS: PARTIAL THROMBOPLASTIN TIME 31.5 secs (24.9-33.3)
[2020-02-22] MEDS: INSULIN ASPART 300 UNIT/3 ML PEN SUBQ SCH ×7 (07:43→20:50)
[2020-02-22] MEDS: SPIRONOLACTONE 25 MG TABLET PO SCH ×2 (08:10→12:30)
[2020-02-22] MEDS: FUROSEMIDE 20 MG TABLET PO SCH (08:10)
[2020-02-22] MEDS: buPROPion SR 150 MG TABLET PO SCH ×2 (08:10→20:47)
[2020-02-22] MEDS: OMEGA-3 ACID ETHYL ESTERS 1 GM CAPSULE PO SCH (08:10)
[2020-02-22] MEDS: CHOLECALCIFEROL 25 MCG TABLET PO SCH (08:10)
[2020-02-22] MEDS: ASPIRIN EC 81 MG TABLET PO SCH (08:10)
[2020-02-22] MEDS: FERROUS GLUCONATE 324 MG TABLET PO SCH (08:10)
[2020-02-22] MEDS: PRENATAL VITAMIN TABLET PO SCH (08:10)
[2020-02-22] MEDS: THIAMINE 100 MG TABLET PO SCH (08:11)
[2020-02-22] MEDS: FAMOTIDINE 20 MG TABLET PO SCH ×2 (08:11→20:48)
[2020-02-22] MEDS: metFORMIN 500 MG TABLET PO SCH ×2 (08:13→17:16)
[2020-02-22] MEDS: BUDESONIDE 0.5 MG/2 ML NEB INH SCH ×2 (09:30→18:10)
[2020-02-22] MEDS: ALBUTEROL NEB 2.5 MG/3 ML INH PRN ×2 (09:30→18:10)
--- NOTE | 2020-02-22 10:37 | PROVIDER PROGRESS NOTE ---
Subjective - Prog Note Date Prog Note Date: 02/22/20 Prog Note Time: 10:35 - Subjective Subjective: He is frustrated with his up-and-down course. Does share with me that he thinks the Lasix does not work. Spironolactone is what is making him diurese. Worried about the use of the Blunt. He fears having to go home and not be able to urinate. Chafing a little bit at the idea of water restriction/fluid restriction Current Medications - Current Medications Current Medications: Active Medications Albuterol (Albuterol Neb 2.5 Mg/3 Ml) 2.5 mg INH RTQ4H PRN PRN Reason: Wheezing Last Admin: 02/21/20 17:55 Dose: 2.5 mg Documented by: Aspirin (Aspirin Ec 81 Mg Tablet) 81 mg PO DAILY [facility] Last Admin: 02/22/20 08:10 Dose: 81 mg Documented by: Budesonide (Budesonide 0.5 Mg/2 Ml Neb) 0.5 mg INH RTBID [facility] Last Admin: 02/21/20 17:55 Dose: 0.5 mg Documented by: Bupropion HCl (Bupropion Sr 150 Mg Tablet) 150 mg PO BID [facility] Last Admin: 02/22/20 08:10 Dose: 150 mg Documented by: Cholecalciferol (Cholecalciferol 25 Mcg Tablet) 50 mcg PO DAILY [facility] Last Admin: 02/22/20 08:10 Dose: 50 mcg Documented by: Enoxaparin Sodium (Enoxaparin 40 Mg/0.4 Ml Syringe) 40 mg SUBQ DAILY [facility] Famotidine (Famotidine 20 Mg Tablet) 20 mg PO BID [facility] Last Admin: 02/22/20 08:11 Dose: 20 mg Documented by: Ferrous Gluconate (Ferrous Gluconate 324 Mg Tablet) 324 mg PO DAILYWM [facility] Last Admin: 02/22/20 08:10 Dose: 324 mg Documented by: Furosemide (Furosemide 20 Mg Tablet) 20 mg PO DAILY [facility] Last Admin: 02/22/20 08:10 Dose: 20 mg Documented by: Hydrocortisone (Hydrocortisone 1% Cream 28 Gm Tube) 1 applic TOP BID PRN PRN Reason: ITCHING Last Admin: 02/21/20 20:59 Dose: 1 applic Documented by: Insulin Aspart (Insulin Aspart 300 Unit/3 Ml Pen) 2 - 10 unit SUBQ 0800,1200,1700,2100 [facility]; Protocol Last Admin: 02/22/20 07:43 Dose: Not Given Documented by: Insulin Aspart (Insulin Aspart 300 Unit/3 Ml Pen) 12 unit SUBQ TIDWM [facility] Last Admin: 02/22/20 08:12 Dose: 12 unit Documented by: Insulin Glargine (Insulin Glargine 300 Unit/3 Ml Pen) 65 unit SUBQ HS [facility] Last Admin: 02/21/20 20:58 Dose: 65 unit Documented by: Lidocaine (Lidocaine Patch 5%) 1 patch TOP DAILY PRN PRN Reason: PAIN Last Admin: 02/21/20 18:52 Dose: 1 patch Documented by: Metformin HCl (Metformin 500 Mg Tablet) 1,000 mg PO BIDWM [facility] Last Admin: 02/22/20 08:13 Dose: 1,000 mg Documented by: Metoprolol Succinate (Metoprolol Succinate 25 Mg Tablet) 25 mg PO QPM [facility] Last Admin: 02/21/20 20:56 Dose: 25 mg Documented by: Mineral Oil (Min Oil/Dimethicon/Coconut Oil 92 Gm Tube) 1 applic TOP PRN PRN PRN Reason: Skin Care Last Admin: 02/20/20 05:26 Dose: 1 applic Documented by: [id number] Ethyl Esters ([place]-3 Acid Ethyl Esters 1 Gm Capsule) 1 gm PO DAILY [facility] Last Admin: 02/22/20 08:10 Dose: 1 gm Documented by: Phenazopyridine HCl (Phenazopyridine 100 Mg Tablet) 100 mg PO TID [facility] Last Admin: 02/22/20 05:24 Dose: 100 mg Documented by: Multivit/Folic Acid/Iron ( Vitamin Tablet) 1 tab PO DAILY [facility] Last Admin: 02/22/20 08:10 Dose: 1 tab Documented by: Sodium Chloride (Sodium Chloride Flush 0.9% 10 Ml Syringe) 10 ml IVP 0100,0900,1700 [facility] Last Admin: 02/22/20 08:11 Dose: 10 ml Documented by: Sodium Chloride (Sodium Chloride Flush 0.9% 10 Ml Syringe) 10 ml IVP PRN PRN PRN Reason: NEEDED PER PROVIDER ORDERS Last Admin: 02/16/20 14:04 Dose: 10 ml Documented by: Spironolactone (Spironolactone 25 Mg Tablet) 50 mg PO 0800,1300 [facility] Last Admin: 12/08/20 08:10 Dose: 50 mg Documented by: Thiamine HCl (Thiamine 100 Mg Tablet) 100 mg PO DAILY [facility] Last Admin: 02/22/20 08:11 Dose: 100 mg Documented by: Zinc Oxide (Cod Liver Oil/Zinc Oxide 113 Gm Tube) 113 gm TOP PRN PRN PRN Reason: Skin Care Metformin HCl [Metformin HCl ER] 1,000 mg PO BID 07/24/12 Atorvastatin [Lipitor] 40 mg PO QPM 08/17/14 Albuterol Sulfate [Proair Hfa Inhaler] 1 - 2 puffs INH Q4H PRN 11/13/16 Aspirin [Adult Low Dose Aspirin EC] 81 mg PO DAILY 11/13/16 Insulin Glargine,Hum.rec.anlog [Basaglar Kwikpen U-100] 65 units SUBQ DAILY PM 11/13/16 Insulin Regular, Human [Humulin R] 15 - 30 units SUBQ TIDWM 11/13/16 Losartan [Cozaar] 100 mg ORAL DAILY 11/13/16 [place]-3S/Dha/Epa/Fish Oil [Fish Oil [place]-3 Softgel] 1 cap ORAL DAILY 11/13/16 amLODIPine [Norvasc] 5 mg ORAL DAILY 11/13/16 Cholecalciferol (Vitamin D3) [Vitamin D] 2,000 unit PO DAILY 02/24/17 Fluticasone Propionate [Flovent Diskus] 1 puffs IH DAILY 02/15/20 Metoprolol Tartrate [Lopressor] 25 mg PO BID 02/15/20 Multivitamin W/Minerals [Theragran M] 1 tab PO DAILY 02/15/20 buPROPion HCL [Bupropion HCl Sr] 150 mg PO BID 02/15/20 Objective - Vital Signs/Intake & Output Reviewed Vital Signs: Yes Vital Signs: Vital Signs x48h Temp Pulse Resp BP Pulse Ox 02/22/20 07:30 37.0 C 92 18 134/81 H 95 02/22/20 03:59 36.9 C 88 20 138/78 H 95 Intake & Output: Intake & Output 02/19/20 02/20/20 02/21/20 02/22/20 23:59 23:59 23:59 23:59 Intake Total 770 300 680 240 Output Total 1700 1500 1350 250 Balance -930 -1200 -670 -10 - Objective General Appearance: positive: No acute distress, Alert, Other (Morbidly obese male at 138 kg who is sitting at the side of the bed. Has finished his breakfast, 100%, and is awaiting paracentesis.) Eyes Bilateral: positive: PERRL ENT: positive: Pharynx nml Neck: negative: Stiff neck Respiratory: positive: No respiratory distress. negative: Wheezes, Rales, Rhonchi Cardiovascular: positive: Regular rate & rhythm. negative: Gallop/S4, Friction rub Abdomen: positive: Nml bowel sounds, No distention, Other (He usually obese pannus. Difficult to assess for any type of fluid wave. Trace pitting edema of the lower abdominal wall that increases it goes into his groin and upper thighs. Scrotal sac full fluid. Penis not visible with Blunt catheter draining dark suni urine.) Skin: positive: Warm, Dry Extremities: positive: Pedal edema (Starting at the lower abdominal wall and going all the way down his legs. 2+ edema. However he says this is much improved. You can see what the skin is been shrinking down. He has one 3 cm eschar upper third medial locke. Another eschar left lateral medial locke left leg. None of the skin of his) Neurologic/Psychiatric: positive: Oriented x3, CN's nml (2-12), Motor nml - Lab Results Fish Bones: 02/22/20 04:30 02/22/20 04:30 Other Labs: Lab Results x24hrs 02/22/20 02/22/20 02/22/20 Range/Units 07:25 04:30 04:30 WBC (4.8-10.8) x10^3/uL RBC (4.70-6.10) 10^6/uL Hgb (14.0-18.0) g/dL Hct (42.0-52.0) % MCV (80.0-94.0) fL MCH (27.0-31.0) pg MCHC (32.0-36.0) g/dL RDW (12.0-15.0) % Plt Count (130-450) 10^3/uL MPV (7.4-11.4) fL Neut # (Auto) (1.5-6.6) 10^3/uL Lymph # (Auto) (1.5-3.5) 10^3/uL Spink # (Auto) (0.0-1.0) 10^3/uL Eos # (Auto) (0.0-0.7) 10^3/uL Baso # (Auto) (0.0-0.1) 10^3/uL Absolute Nucleated RBC x10^3/uL Nucleated RBC % /100WBC PT 13.6 H (9.9-12.6) secs INR 1.2 (0.8-1.2) APTT 31.5 (24.9-33.3) secs Sodium 139 (135-145) mmol/L Potassium 4.5 (3.5-5.0) mmol/L Chloride 102 (101-111) mmol/L Carbon Dioxide 27 (21-32) mmol/L Anion Gap 10.0 (6-13) BUN 24 H (6-20) mg/dL Creatinine 1.0 (0.6-1.2) mg/dL Estimated GFR (MDRD) 79 L (>89) Glucose 140 H (70-100) mg/dL POC Whole Bld Glucose 122 H (70 - 100) mg/dL Calcium 9.1 (8.5-10.3) mg/dL 02/22/20 02/21/20 02/21/20 Range/Units 04:30 20:48 16:24 WBC 6.6 (4.8-10.8) x10^3/uL RBC 3.39 L (4.70-6.10) 10^6/uL Hgb 11.4 L (14.0-18.0) g/dL Hct 35.2 L (42.0-52.0) % MCV 103.8 H (80.0-94.0) fL MCH 33.6 H (27.0-31.0) pg MCHC 32.4 (32.0-36.0) g/dL RDW 13.2 (12.0-15.0) % Plt Count 181 (130-450) 10^3/uL MPV 9.7 (7.4-11.4) fL Neut # (Auto) 3.8 (1.5-6.6) 10^3/uL Lymph # (Auto) 1.6 (1.5-3.5) 10^3/uL [place] # (Auto) 0.9 (0.0-1.0) 10^3/uL Eos # (Auto) 0.3 (0.0-0.7) 10^3/uL Baso # (Auto) 0.1 (0.0-0.1) 10^3/uL Absolute Nucleated RBC 0.00 x10^3/uL Nucleated RBC % 0.0 /100WBC PT (9.9-12.6) secs INR (0.8-1.2) APTT (24.9-33.3) secs Sodium (135-145) mmol/L Potassium (3.5-5.0) mmol/L Chloride (101-111) mmol/L Carbon Dioxide (21-32) mmol/L Anion Gap (6-13) BUN (6-20) mg/dL Creatinine (0.6-1.2) mg/dL Estimated GFR (MDRD) (>89) Glucose (70-100) mg/dL POC Whole Bld Glucose 143 H 142 H (70 - 100) mg/dL Calcium (8.5-10.3) mg/dL 02/21/20 Range/Units 11:36 WBC (4.8-10.8) x10^3/uL RBC (4.70-6.10) 10^6/uL Hgb (14.0-18.0) g/dL Hct (42.0-52.0) % MCV (80.0-94.0) fL MCH (27.0-31.0) pg MCHC (32.0-36.0) g/dL RDW (12.0-15.0) % Plt Count (130-450) 10^3/uL MPV (7.4-11.4) fL Neut # (Auto) (1.5-6.6) 10^3/uL Lymph # (Auto) (1.5-3.5) 10^3/uL [place] # (Auto) (0.0-1.0) 10^3/uL Eos # (Auto) (0.0-0.7) 10^3/uL Baso # (Auto) (0.0-0.1) 10^3/uL Absolute Nucleated RBC x10^3/uL Nucleated RBC % /100WBC PT (9.9-12.6) secs INR (0.8-1.2) APTT (24.9-33.3) secs Sodium (135-145) mmol/L Potassium (3.5-5.0) mmol/L Chloride (101-111) mmol/L Carbon Dioxide (21-32) mmol/L Anion Gap (6-13) BUN (6-20) mg/dL Creatinine (0.6-1.2) mg/dL Estimated GFR (MDRD) (>89) Glucose (70-100) mg/dL POC Whole Bld Glucose 125 H (70 - 100) mg/dL Calcium (8.5-10.3) mg/dL Assessment/Plan - Problem List (1) Anasarca Impression: With ascites, edema of the testicle/scrotal sac, edema of his abdominal wall, buttocks, legs. From description on admission to now, all of this is improved. Unfortunately he is needed to paracentesis prior to this. Today will be paracentesis #3. Plan: Increase spironolactone to 75 twice daily Discontinue Lasix At this time this is all attributed to alcoholic liver disease from alcohol abuse. For completeness sake we will do hepatitis panel work-up to make sure there is no other diseases. (2) Diabetes mellitus, insulin dependent (IDDM), uncontrolled Impression: Glucose on admission was 202-212. Over the next several days he is dropped to the 150s, 190s, 160s, and is now 1 12-1 43 for the last 48 hours. He is on Lantus 65 units at at bedtime, fixed dose NovoLog before meals 12 units, as well as sliding scale. He was also resumed on metformin. All of this is his usual home med list. We may have to discontinue the Metformin again if his sugar gets any lower. Once he is home, his diet will no longer be strict. I anticipate he will need his usual medications. (3) Hypertension Impression: Usual home medications are Cozaar 100 mg daily, metoprolol 25 twice daily, Norvasc 5 daily. Blood pressure has been on the low side here. Especially with IV Lasix. Today he is in the 130s systolic after being low yesterday. Plan: Continue to monitor until he needs his usual home regimen. Qualifiers: Hypertension type: essential hypertension Qualified Code(s): I10 - Essential (primary) hypertension (4) Alcoholic liver disease Impression: We will complete work-up with regards to hepatitis panels, ultrasound, and make sure all of his paracentesis have been analyzed. He will need GI follow-up in the outpatient setting.
--- NOTE | 2020-02-22 13:49 | Ultrasound Report ---
PROCEDURE: Abdominal Paracentesis INDICATIONS: Ascites fluid is reaccumulating, abdomen is tense TECHNIQUE: The indications, alternatives, benefits, risks, and complications of the procedure were explained to the patient. Written informed consent was obtained and placed in the chart. The abdomen and pelvis were examined sonographically, and an appropriate site was chosen for paracentesis. The skin was pre pared and draped in the usual sterile fashion, and 1% lidocaine was infiltrated from the skin down th rough the peritoneal surface. A 19-gauge catheter-covered needle was then introduced into the perito valerie space, the catheter was advanced and the needle was withdrawn, and thereafter peritoneal fluid w as withdrawn. The catheter was then removed and a dressing was applied. The fluid was discarded if the clinician did not order diagnostic testing of the fluid. COMPARISON: 02/18/2020, 02/16/2020 FINDINGS: Access site: Right lower quadrant Needle: One-Step centesis catheter with introducer needle. Fluid volume and description: 4 Fluid sent for diagnostic testing: Not requested Medications: 1% lidocaine for local anaesthesia. Complications: None. IMPRESSION: Successful ultrasound-guided paracentesis. Reviewed by: Hank Busch MD on 02/22/2020 1:48 PM PST Approved by: Hank Busch MD on 02/22/2020 1:48 PM PST Station ID: [id number]
[2020-02-22] MEDS: METOPROLOL SUCCINATE 25 MG TABLET PO SCH (20:47)
[2020-02-22] MEDS: LIDOCAINE PATCH 5% TOP PRN (20:48)
[2020-02-22] MEDS: HYDROCORTISONE 1% CREAM 28 GM TUBE TOP PRN (20:48)
[2020-02-22] MEDS: INSULIN GLARGINE 300 UNIT/3 ML PEN SUBQ SCH (20:51)
[2020-02-23] MEDS: SODIUM CHLORIDE FLUSH 0.9% 10 ML SYRINGE IVP SCH ×3 (00:02→17:05)
[2020-02-23] MEDS: PHENAZOPYRIDINE 100 MG TABLET PO SCH ×3 (05:33→21:19)
[2020-02-23] MEDS: BUDESONIDE 0.5 MG/2 ML NEB INH SCH ×2 (07:18→22:20)
[2020-02-23] MEDS: INSULIN ASPART 300 UNIT/3 ML PEN SUBQ SCH ×7 (08:04→21:19)
[2020-02-23] MEDS: SPIRONOLACTONE 25 MG TABLET PO SCH ×2 (08:10→13:56)
[2020-02-23] MEDS: PRENATAL VITAMIN TABLET PO SCH (08:12)
[2020-02-23] MEDS: FAMOTIDINE 20 MG TABLET PO SCH ×2 (08:13→21:19)
[2020-02-23] MEDS: FUROSEMIDE 20 MG TABLET PO SCH (08:13)
[2020-02-23] MEDS: ASPIRIN EC 81 MG TABLET PO SCH (08:13)
[2020-02-23] MEDS: THIAMINE 100 MG TABLET PO SCH (08:14)
[2020-02-23] MEDS: OMEGA-3 ACID ETHYL ESTERS 1 GM CAPSULE PO SCH (08:14)
[2020-02-23] MEDS: buPROPion SR 150 MG TABLET PO SCH ×2 (08:14→21:19)
[2020-02-23] MEDS: CHOLECALCIFEROL 25 MCG TABLET PO SCH (08:14)
[2020-02-23] MEDS: FERROUS GLUCONATE 324 MG TABLET PO SCH (08:14)
[2020-02-23] MEDS: ENOXAPARIN 40 MG/0.4 ML SYRINGE SUBQ SCH (08:15)
[2020-02-23] MEDS: metFORMIN 500 MG TABLET PO SCH ×2 (08:20→17:05)
--- NOTE | 2020-02-23 19:29 | PROVIDER PROGRESS NOTE ---
Subjective - Prog Note Date Prog Note Date: 02/23/20 Prog Note Time: 19:27 Objective - Vital Signs/Intake & Output Reviewed Vital Signs: Yes Vital Signs: Vital Signs x48h Temp Pulse Resp BP Pulse Ox 02/23/20 14:00 36.9 C 90 18 134/82 H 95 Intake & Output: Intake & Output 02/20/20 02/21/20 02/22/20 02/23/20 23:59 23:59 23:59 23:59 Intake Total 535 651 0288 590 Output Total 1500 1350 1950 900 Balance -1200 -670 -830 -310 - Objective General Appearance: positive: Alert Eyes Bilateral: positive: PERRL Neck: positive: No JVD Respiratory: positive: No respiratory distress Cardiovascular: positive: Regular rate & rhythm Abdomen: positive: Non-tender, No organomegaly, Nml bowel sounds, No distention Skin: positive: Warm, Dry Extremities: positive: Full ROM, Pedal edema Neurologic/Psychiatric: positive: Oriented x3, CN's nml (2-12), Motor nml - Lab Results Fish Bones: 02/22/20 04:30 02/22/20 04:30 Other Labs: Lab Results x24hrs 02/23/20 02/23/20 02/23/20 Range/Units 16:55 11:50 07:58 POC Whole Bld Glucose 139 H 160 H 160 H (70 - 100) mg/dL 02/22/20 Range/Units 20:32 POC Whole Bld Glucose 152 H (70 - 100) mg/dL ABX Reporting Has patient been on IV antibiotics over the past 48 hours?: No Assessment/Plan - Problem List (1) Anasarca Impression: With ascites, edema of the testicle/scrotal sac, edema of his abdominal wall, buttocks, legs. From description on admission to now, all of this is improved. Unfortunately he is needed to paracentesis prior to this. Yesterday he had paracentesis #3. Plan: Increased spironolactone to 75 twice daily Discontinue Lasix At this time this is all attributed to alcoholic liver disease from alcohol abuse. For completeness sake I did order hepatitis panel work-up to make sure there is no other diseases. It has been completed but there is no reports in EMR. I have spoken to Dianne in Lab and she sees it done and completed but also not present in a report form for her. She will investigate. But wants me to redo the orders so I will. (2) Diabetes mellitus, insulin dependent (IDDM), uncontrolled Impression: Glucose on admission was 202-212. Over the next several days he is dropped to the 150s, 190s, 160s, and was 112-143 for 02/20 and 8. He is on Lantus 65 units at at bedtime, fixed dose NovoLog before meals 12 units, as well as sliding scale. He was also resumed on metformin. All of this is his usual home med list. We may have to discontinue the Metformin again if his sugar gets any lower. Once he is home, his diet will no longer be strict. I anticipate he will need his usual medications. Today he has been 160 and 139. No change in medications done. (3) Hypertension Impression: Usual home medications are Cozaar 100 mg daily, metoprolol 25 twice daily, Norvasc 5 daily. Blood pressure has been on the low side here. Especially with IV Lasix. Blood pressure continues to be in the 120s to 130s. Plan: Continue to monitor until he needs his usual home regimen. Qualifiers: Hypertension type: essential hypertension Qualified Code(s): I10 - Essential (primary) hypertension (4) Alcoholic liver disease Impression: We will complete work-up with regards to hepatitis panels, ultrasound, and make sure all of his paracentesis have been analyzed. He will need GI follow-up in the outpatient setting.
[2020-02-23] MEDS: LIDOCAINE PATCH 5% TOP PRN (21:19)
[2020-02-23] MEDS: METOPROLOL SUCCINATE 25 MG TABLET PO SCH (21:19)
[2020-02-23] MEDS: INSULIN GLARGINE 300 UNIT/3 ML PEN SUBQ SCH (21:20)
[2020-02-24] MEDS: ALBUTEROL NEB 2.5 MG/3 ML INH PRN (01:47)
[2020-02-24 04:55] LABS: BASOPHILS # (AUTO) 0.1 10^3/uL (0.0-0.1); BASOPHILS % (AUTO) 1.8 %; EOSINOPHILS # (AUTO) 0.2 10^3/uL (0.0-0.7); EOSINOPHILS % (AUTO) 3.6 %; LYMPHOCYTES # (AUTO) 1.6 10^3/uL (1.5-3.5); MEAN CORPUSCULAR HGB CONC 32.8 g/dL (32.0-36.0); MEAN CORPUSCULAR VOLUME 103.7 fL (80.0-94.0); MEAN PLATELET VOLUME 9.4 fL (7.4-11.4); MONOCYTES # (AUTO) 0.9 10^3/uL (0.0-1.0); MONOCYTES % (AUTO) 14.4 %; NEUTROPHILS # (AUTO) 3.3 10^3/uL (1.5-6.6); NEUTROPHILS % (AUTO) 53.9 %; PLT - PLATELET COUNT 171 10^3/uL (130-450); RED BLOOD COUNT 3.53 10^6/uL (4.70-6.10); RED CELL DISTRIBUTION WIDTH 12.9 % (12.0-15.0); WHITE BLOOD COUNT 6.1 x10^3/uL (4.8-10.8)
[2020-02-24 05:02] LABS: CREATININE 0.8 mg/dL (0.6-1.2)
[2020-02-24] MEDS: SODIUM CHLORIDE FLUSH 0.9% 10 ML SYRINGE IVP SCH ×2 (05:26→08:26)
[2020-02-24] MEDS: PHENAZOPYRIDINE 100 MG TABLET PO SCH (05:26)
[2020-02-24] MEDS: MIN OIL/DIMETHICON/COCONUT OIL 92 GM TUBE TOP PRN (05:26)
[2020-02-24] MEDS: HYDROCORTISONE 1% CREAM 28 GM TUBE TOP PRN (05:26)
[2020-02-24 07:33] VITALS: BP 118/60
[2020-02-24] MEDS: BUDESONIDE 0.5 MG/2 ML NEB INH SCH (07:58)
[2020-02-24] MEDS: INSULIN ASPART 300 UNIT/3 ML PEN SUBQ SCH ×2 (07:59→08:01)
[2020-02-24] MEDS ORDERED: SPIRONOLACTONE 25 MG TABLET PO SCH (08:00)
[2020-02-24] MEDS: ASPIRIN EC 81 MG TABLET PO SCH (08:25)
[2020-02-24] MEDS: OMEGA-3 ACID ETHYL ESTERS 1 GM CAPSULE PO SCH (08:25)
[2020-02-24] MEDS: FAMOTIDINE 20 MG TABLET PO SCH (08:25)
[2020-02-24] MEDS: metFORMIN 500 MG TABLET PO SCH (08:25)
[2020-02-24] MEDS: buPROPion SR 150 MG TABLET PO SCH (08:25)
[2020-02-24] MEDS: PRENATAL VITAMIN TABLET PO SCH (08:25)
[2020-02-24] MEDS: FERROUS GLUCONATE 324 MG TABLET PO SCH (08:25)
[2020-02-24] MEDS: THIAMINE 100 MG TABLET PO SCH (08:25)
[2020-02-24] MEDS: ENOXAPARIN 40 MG/0.4 ML SYRINGE SUBQ SCH (08:26)
[2020-02-24] MEDS: CHOLECALCIFEROL 25 MCG TABLET PO SCH (08:26)
--- NOTE | 2020-02-24 10:28 | PROVIDER PROGRESS NOTE ---
Subjective - Prog Note Date Prog Note Date: 02/24/20 Prog Note Time: 10:26 - Subjective Pt reports feeling: No change Subjective: he has scrotal pain and discomfort that has been chronic for weeks so not changed. Not happy that he needs a nagy. Wants to stay until he can safely get out of bed on his own. Right now needs the trapeze or help from nursing. REally wants to do it on his own. No abd pain. EAting well. Current Medications - Current Medications Current Medications: Active Medications Albuterol (Albuterol Neb 2.5 Mg/3 Ml) 2.5 mg INH RTQ4H PRN PRN Reason: Wheezing Last Admin: 02/24/20 01:47 Dose: 2.5 mg Documented by: Aspirin (Aspirin Ec 81 Mg Tablet) 81 mg PO DAILY [facility] Last Admin: 02/24/20 08:25 Dose: 81 mg Documented by: Budesonide (Budesonide 0.5 Mg/2 Ml Neb) 0.5 mg INH RTBID [facility] Last Admin: 02/24/20 07:58 Dose: Not Given Documented by: Bupropion HCl (Bupropion Sr 150 Mg Tablet) 150 mg PO BID [facility] Last Admin: 02/24/20 08:25 Dose: 150 mg Documented by: Cholecalciferol (Cholecalciferol 25 Mcg Tablet) 50 mcg PO DAILY [facility] Last Admin: 02/24/20 08:26 Dose: 50 mcg Documented by: Enoxaparin Sodium (Enoxaparin 40 Mg/0.4 Ml Syringe) 40 mg SUBQ DAILY [facility] Last Admin: 02/24/20 08:26 Dose: 40 mg Documented by: Famotidine (Famotidine 20 Mg Tablet) 20 mg PO BID [facility] Last Admin: 02/24/20 08:25 Dose: 20 mg Documented by: Ferrous Gluconate (Ferrous Gluconate 324 Mg Tablet) 324 mg PO DAILYWM [facility] Last Admin: 02/24/20 08:25 Dose: 324 mg Documented by: Hydrocortisone (Hydrocortisone 1% Cream 28 Gm Tube) 1 applic TOP BID PRN PRN Reason: ITCHING Last Admin: 02/24/20 05:26 Dose: 1 applic Documented by: Insulin Aspart (Insulin Aspart 300 Unit/3 Ml Pen) 2 - 10 unit SUBQ 08 00,1200,1700,2100 [facility]; Protocol Last Admin: 02/24/20 07:59 Dose: 2 unit Documented by: Insulin Aspart (Insulin Aspart 300 Unit/3 Ml Pen) 12 unit SUBQ TIDWM [facility] Last Admin: 02/24/20 08:01 Dose: 12 unit Documented by: Insulin Glargine (Insulin Glargine 300 Unit/3 Ml Pen) 65 unit SUBQ HS [facility] Last Admin: 02/23/20 21:20 Dose: 65 unit Documented by: Lidocaine (Lidocaine Patch 5%) 1 patch TOP DAILY PRN PRN Reason: PAIN Last Admin: 02/23/20 21:19 Dose: 1 patch Documented by: Metformin HCl (Metformin 500 Mg Tablet) 1,000 mg PO BIDWM [facility] Last Admin: 02/24/20 08:25 Dose: 1,000 mg Documented by: Metoprolol Succinate (Metoprolol Succinate 25 Mg Tablet) 25 mg PO QPM [facility] Last Admin: 02/23/20 21:19 Dose: 25 mg Documented by: Mineral Oil (Min Oil/Dimethicon/Coconut Oil 92 Gm Tube) 1 applic TOP PRN PRN PRN Reason: Skin Care Last Admin: 02/24/20 05:26 Dose: 1 applic Documented by: [id number] Ethyl Esters (Caret-3 Acid Ethyl Esters 1 Gm Capsule) 1 gm PO DAILY [facility] Last Admin: 02/24/20 08:25 Dose: 1 gm Documented by: Phenazopyridine HCl (Phenazopyridine 100 Mg Tablet) 100 mg PO TID [facility] Last Admin: 02/24/20 05:26 Dose: 100 mg Documented by: Multivit/Folic Acid/Iron ( Vitamin Tablet) 1 tab PO DAILY [facility] Last Admin: 02/24/20 08:25 Dose: 1 tab Documented by: Sodium Chloride (Sodium Chloride Flush 0.9% 10 Ml Syringe) 10 ml IVP 0100,090 0,1700 [facility] Last Admin: 02/24/20 08:26 Dose: 10 ml Documented by: Sodium Chloride (Sodium Chloride Flush 0.9% 10 Ml Syringe) 10 ml IVP PRN PRN PRN Reason: NEEDED PER PROVIDER ORDERS Last Admin: 02/16/20 14:04 Dose: 10 ml Documented by: Spironolactone (Spironolactone 25 Mg Tablet) 75 mg PO 0800,1300 [facility] Last Admin: 02/24/20 08:25 Dose: 75 mg Documented by: Thiamine HCl (Thiamine 100 Mg Tablet) 100 mg PO DAILY [facility] Last Admin: 02/24/20 08:25 Dose: 100 mg Documented by: Zinc Oxide (Cod Liver Oil/Zinc Oxide 113 Gm Tube) 113 gm TOP PRN PRN PRN Reason: Skin Care Metformin HCl [Metformin HCl ER] 1,000 mg PO BID 07/24/12 Atorvastatin [Lipitor] 40 mg PO QPM 08/17/14 Albuterol Sulfate [Proair Hfa Inhaler] 1 - 2 puffs INH Q4H PRN 11/13/16 Aspirin [Adult Low Dose Aspirin EC] 81 mg PO DAILY 11/13/16 Insulin Glargine,Hum.rec.anlog [Basaglar Kwikpen U-100] 65 units SUBQ DAILY PM 11/13/16 Insulin Regular, Human [Humulin R] 15 - 30 units SUBQ TIDWM 11/13/16 Losartan [Cozaar] 100 mg ORAL DAILY 11/13/16 Caret-3S/Dha/Epa/Fish Oil [Fish Oil Caret-3 Softgel] 1 cap ORAL DAILY 11/13/16 amLODIPine [Norvasc] 5 mg ORAL DAILY 11/13/16 Cholecalciferol (Vitamin D3) [Vitamin D] 2,000 unit PO DAILY 02/24/17 Fluticasone Propionate [Flovent Diskus] 1 puffs IH DAILY 02/15/20 Metoprolol Tartrate [Lopressor] 25 mg PO BID 02/15/20 Multivitamin W/Minerals [Theragran M] 1 tab PO DAILY 02/15/20 buPROPion HCL [Bupropion HCl Sr] 150 mg PO BID 02/15/20 Objective - Vital Signs/Intake & Output Reviewed Vital Signs: Yes Vital Signs: Vital Signs x48h Temp Pulse Resp BP Pulse Ox 02/24/20 07:31 36.3 C L 82 18 118/60 94 02/24/20 04:49 37.6 C 86 20 122/63 95 Intake & Output: Intake & Output 02/21/20 02/22/20 02/23/20 02/24/20 23:59 23:59 23:59 23:59 Intake Total 680 1120 940 Output Total 1350 1950 900 975 Balance -670 -830 40 -975 - Objective General Appearance: positive: Alert, Mild distress, Other (132 kg and down 1 kg from yesterday, 5'10") Eyes Bilateral: positive: PERRL ENT: positive: No signs of dehydration Neck: negative: Stiff neck Respiratory: positive: No respiratory distress, Other (diminished at bases, no crackles). negative: Wheezes, Rales, Rhonchi Cardiovascular: positive: Regular rate & rhythm. negative: Gallop/S4, Friction rub Abdomen: positive: Non-tender, Nml bowel sounds, No distention Skin: positive: Warm, Dry Extremities: positive: Full ROM, Pedal edema (less and less in thighs, calves. No open wounds. only eschar, 1 on each locke) Neurologic/Psychiatric: positive: Oriented x3, CN's nml (2-12), Motor nml (except for stuggle to sit up and stand). negative: Mood/affect nml (angry) - Lab Results Fish Bones: 02/24/20 04:50 02/24/20 04:50 Other Labs: Lab Results x24hrs 02/24/20 02/24/20 02/24/20 Range/Units 07:27 04:50 04:50 WBC 6.1 (4.8-10.8) x10^3/uL RBC 3.53 L (4.70-6.10) 10^6/uL Hgb 12.0 L (14.0-18.0) g/dL Hct 36.6 L (42.0-52.0) % MCV 103.7 H (80.0-94.0) fL MCH 34.0 H (27.0-31.0) pg MCHC 32.8 (32.0-36.0) g/dL RDW 12.9 (12.0-15.0) % Plt Count 171 (130-450) 10^3/uL MPV 9.4 (7.4-11.4) fL Neut # (Auto) 3.3 (1.5-6.6) 10^3/uL Lymph # (Auto) 1.6 (1.5-3.5) 10^3/uL [place] # (Auto) 0.9 (0.0-1.0) 10^3/uL Eos # (Auto) 0.2 (0.0-0.7) 10^3/uL Baso # (Auto) 0.1 (0.0-0.1) 10^3/uL Absolute Nucleated RBC 0.00 x10^3/uL Nucleated RBC % 0.0 /100WBC Sodium 135 (135-145) mmol/L Potassium 4.6 (3.5-5.0) mmol/L Chloride 103 (101-111) mmol/L Carbon Dioxide 25 (21-32) mmol/L Anion Gap 7.0 (6-13) BUN 19 (6-20) mg/dL Creatinine 0.8 (0.6-1.2) mg/dL Estimated GFR (MDRD) 102 (>89) Glucose 149 H (70-100) mg/dL POC Whole Bld Glucose 151 H (70 - 100) mg/dL Calcium 9.0 (8.5-10.3) mg/dL 02/23/20 02/23/20 02/23/20 Range/Units 21:03 16:55 11:50 WBC (4.8-10.8) x10^3/uL RBC (4.70-6.10) 10^6/uL Hgb (14.0-18.0) g/dL Hct (42.0-52.0) % MCV (80.0-94.0) fL MCH (27.0-31.0) pg MCHC (32.0-36.0) g/dL RDW (12.0-15.0) % Plt Count (130-450) 10^3/uL MPV (7.4-11.4) fL Neut # (Auto) (1.5-6.6) 10^3/uL Lymph # (Auto) (1.5-3.5) 10^3/uL [place] # (Auto) (0.0-1.0) 10^3/uL Eos # (Auto) (0.0-0.7) 10^3/uL Baso # (Auto) (0.0-0.1) 10^3/uL Absolute Nucleated RBC x10^3/uL Nucleated RBC % /100WBC Sodium (135-145) mmol/L Potassium (3.5-5.0) mmol/L Chloride (101-111) mmol/L Carbon Dioxide (21-32) mmol/L Anion Gap (6-13) BUN (6-20) mg/dL Creatinine (0.6-1.2) mg/dL Estimated GFR (MDRD) (>89) Glucose (70-100) mg/dL POC Whole Bld Glucose 162 H 139 H 160 H (70 - 100) mg/dL Calcium (8.5-10.3) mg/dL Assessment/Plan - Problem List (1) Anasarca Impression: With ascites, edema of the testicle/scrotal sac, edema of his abdominal wall, buttocks, legs. From description on admission to now, all of this continues to improve. 02/21 he had paracentesis #3. Plan: Increased spironolactone to 75 twice daily Discontinue Lasix At this time this is all attributed to alcoholic liver disease from alcohol ab use. For completeness sake I did order hepatitis panel work-up to make sure there is no other diseases. It has been completed but there is no reports in EMR. I have spoken to Dianne in Lab and she sees it done and completed but also not present in a report form for her. She will investigate. But wants me to redo the orders so I will. After I redid the orders, Dianne found out that they were send out labs. They are still pending. (2) Diabetes mellitus, insulin dependent (IDDM), uncontrolled Impression: Glucose on admission was 202-212. Over the next several days he is dropped to the 150s, 190s, 160s, and was 112-143 for 02/20 and . He is on Lantus 65 units at at bedtime, fixed dose NovoLog before meals 12 units, as well as sliding scale. He was also resumed on metformin. All of this is his usual home med list. We may have to discontinue the Metformin again if his sugar gets any lower. Once he is home, his diet will no longer be strict. I anticipate he will need his usual medications. Yesterday he was 160, 139, 162, and this morning he is 151. No change in medications done. (3) Hypertension Impression: Usual home medications are Cozaar 100 mg daily, metoprolol 25 twice daily, Norvasc 5 daily. Blood pressure has been on the low side here. Especially with IV Lasix. Blood pressure continues to be in the 120s to 130s.He is only on metoprolol and spironolactone right now. Plan: Continue to monitor until he needs his usual home regimen.I anticipate that when he goes home in the next day or 2, he will not be on Cozaar or Norvasc. Qualifiers: Hypertension type: essential hypertension Qualified Code(s): I10 - Essential (primary) hypertension (4) Alcoholic liver disease Impression: We will complete work-up with regards to hepatitis panels, ultrasound, and make sure all of his paracentesis have been analyzed. He will need GI follow-up in the outpatient setting.
--- NOTE | 2020-02-24 10:59 | Discharge Plan ---
Discharge Plan Problem Reviewed?: Yes Disposition: Home, Self Care Condition: Good Prescriptions: Spironolactone [Aldactone] 75 mg PO 0800,1300 #180 tablet Ferrous Sulfate 300 mg PO DAILY #150 ml Diet: Low Sodium (with 1500 cc fluids/day) Activity Restrictions: Activity as Tolerated Shower Restrictions: No Driving Restrictions: Yes (no driving) Assistance Devices: Walker Instruction Topics: Cirrhosis Tx, Cirrhosis, ED Ascites Health Concerns: You presented to our emergency room because you have been retaining fluid for the last 3 months. You had seen a personal consultant a month ago and your heart ultrasound was reportedly normal. You were taking Lasix. You could also stop drinking your sixpack of beer of day 3 days before you came in thinking that is what with the problem was. In spite of that you had retained a severe amount of fluid that your entire body was swollen from your chest down to your legs. Your scrotum is so swollen that you could no longer see your penis. We have treated you as alcoholic liver disease with cirrhosis and ascites. We have aggressively diuresed you. We have made you urinate. You have also undergone 3 procedures called to paracentesis. It is placing a needle through your abdominal wall into your abdominal cavity to suction out your abdominal cavity fluid. You did that 3 times. The first 2 were to remove 2 L of fluid, the last 1 removed 4 L of fluid. The cultures of that fluid are negative. The cell count shows it to be not infected. While here your blood pressure has been low. As such we stopped your Cozaar and Norvasc. For a short time we did continue your Lasix but we find that the spironolactone works better for you than Lasix so Lasix has been stopped. Plan of Treatment: 1. Please see your primary care provider in follow-up in the next week. They will need to do blood work every week to make sure your kidney function and potassium stay normal on the spironolactone. 2. Your primary care provider needs to see that you follow-up with your personal consultant as well as gastroenterology referral. The specialist need to balance out your medications. At this time do not resume Norvasc or Cozaar. Stop Lasix. You will go home on spironolactone and metoprolol.While we do think that you have cirrhosis from your drinking too much beer, we did do some blood work to make sure there were no other causes of liver problems Such as hepatitis, Jd's disease, or autoimmune cirrhosis. That blood work is pending at the time of discharge and your primary care provider should go over that blood work with you. This includes acute hepatitis panel, ceruloplasmin, and antiliver kidney microsomal's. 3. Please abide by a strict fluid intake. Do not drink water, coffee, soda, juice, tea beyond the combined 1500 cc a day. That is a liter and a half of fluid. Take home one of the containers that we have here at the hospital and you could only drink a total of 3 of those a day. 4. Please eat a very low sodium diet 5. Weigh yourself daily. If you start to gain weight. Most likely that is fluid. Contact your doctor's office immediately to adjust your medications. 6. You can no longer drink any form of alcohol. No beer, wine, vodka, tequila, etc.Please take a daily multivitamin or vitamin so that you can get enough thiamine and B12 in your body which has been depleted by the beer drinking. 7. Since you are still struggling with physical deconditioning, we had thought that you were going to stay for more physical therapy. However, on the day of discharge you said you wanted to go home even though you felt like it was hard for you to get out of bed. You would rather go home with home health and physical therapy. I have ordered a physical therapist as well as home health bath aide to help you. You also have a bariatric walker. 8. You still require a Blunt catheter in your bladder to help you urinate. The edema and swelling of fluid retention has caused your scrotum to inflate tremendously and your penis to retract. As such she will stay in the Blunt till the edema is down. Home health nursing will help you with that. Care Goals: To lose weight, not retain any more fluid, and increased independence so that you do not need a walker or help with your activities of daily living. Assessment: Patient understands care goals and will try to comply Follow-Up Care: Home Health - RN, Home Health - PT No Smoking: If you smoke, Please STOP! Call for help. Follow-up with: LORETTA MERCER MD [Provider Admit Priv/Credential] -
--- NOTE | 2020-02-24 11:16 | DISCHARGE SUMMARY ---
Discharge Summary Admit Date: 02/15/20 Discharge Date: 02/24/20 Discharging Provider: Tamara Cotton MD Primary Care Provider: Andrez Garg MD Code Status: Attempt Resuscitation Condition at Discharge: Good Discharge Disposition: 06 [facility] - DIAGNOSES Discharge Diagnoses with Status of Each Condition: 1. Anasarca 2. Severe ascites 3. Alcoholic liver disease 4. Other specified disorder of penis 5. Type 2 diabetes mellitus, with complication of peripheral neuropathy, on long-term use of insulin 6. Hypotension 7. Eschars of both lower extremity 8. Iron deficiency anemia 9. Alcohol abuse 10. Alcohol withdrawal 11. Nonspecific dermatitis 12. Hyponatremia 13. Anxiety and depression 14. Urinary obstruction - HPI History of Present Illness: As per history and physical of Dr. LEA randle, patient is a 49-year-old white male with a history of alcohol abuse, drinks 6 pack a day of beer, has diabetes, hypertension, hyperlipidemia and has had edema for 3 months. 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 Told he had a normal ejection fraction by echo and that his swelling was not from abnormal heart function. He was placed on Lasix. Over the last 3 days, and spite of regular use of Lasix, he has developed increased swelling to his scrotum, penis. He is developed shortness of breath at rest. Orthopnea. Because he was orthopneic he stopped drinking beer 3 days ago thinking that "the fluid from the beer was causing the fluid retention". In the emergency room he had such severe orthopnea, was unable to urinate. He had a Blunt placed, exam showed him to have hypertension, tachycardia, anasarca, tense ascites, a glucose of 300, sodium 130. - CONSULTS | PROCEDURES Procedures: 1. Paracentesis x3. #1 2 L, #2 2 L, #3 4 L. 2. Peritoneal body fluid culture negative 3. Fecal occult blood negative 4. Chest x-ray with low lung volumes, no acute cardiopulmonary findings. 5. 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 6. Cytology of peritoneal fluid without malignant cells, scant reactive mesothelial cells and lymphocytes. 7. Iron 37 and low, TIBC 207 and low, percent saturation 18% and low, transferrin 148 and low, B12 788 and normal, folate 10.4 and normal. - HOSPITAL COURSE Hospital Course: The patient was begun on spironolactone in addition to Lasix. He was felt to be going through withdrawal and was started on CIWA protocol. Macrocytic anemia was identified and he was found to have iron deficiency anemia. His tachycardia and hypertension resolved and he became hypotensive. As such his home medicines of Cozaar and Norvasc were not resumed. He was kept on metoprolol to help ta chycardia, as well as possible liver disease and ascites. He required increasing doses spironolactone. He feels that Lasix does not work for him. His weight remained stable over 48 hours. On the day of discharge he initially stated that he needed a few more days of physical therapy. He has been bedbound for close to 3 months and he struggles to come to a sitting position much less sitting to standing. Once he is standing he is stable on his feet and can use a bariatric walker. However, he abruptly change his mind. Stated that he wanted to leave. And he would like to go home with home health. He had undergone 3 paracentesis. Resolved and nonspecific dermatitis. Hyponatremia went away. Urinary obstruction was treated with a Blunt catheter and will remain in place until his penis is visible. Right now it is severely retracted and the scrotal edema. Although the scrotal edema has improved, it is still present and enough that he needs the Blunt. He has been asked to follow-up with his primary care provider. I have asked him to make sure he gets referred to gastroenterology for alcoholic liver disease management. Right now it is consisted of spironolactone and metoprolol. He does not have severe hepatic encephalopathy. But down the road may need lactulose. He will need his BUN and creatinine and potassium checked regularly. I would suggest the first week he do it for 3 weeks in a row. Weigh himself daily and contact his primary care provider if weight goes up. Do not drink anymore. Stay on a low-salt diet. No driving until he is steadier on his feet. He is to resume his usual diabetic medications. He has been instructed never to drink any forms of alcohol. He says that his last drink was 3 days before admission. On the day of discharge this gentleman weighs 132 kg, is 5 foot 10 inches tall. He is a sallow faced appearing disheveled man who is able to sit up in a chair, ambulate in the room once he is out of bed. However he does really struggle to get out of the bed. He does not like the logrolling technique where he can roll on his side and then pushes body up using his arms. We recommended he try and use that at home. Temperature is 36.3. Pulse 82. Blood pressure 118/60. Respirations 18. 94% on room air. He is a morbidly obese white male who looks older than stated age. Neck is supple without JVD. Lungs have diminished br eath sounds at the bases. No increased respiratory effort with walking or talking. PMI normally placed with a regular rate and rhythm. The abdomen is obese, soft, nontender. The tense ascites and distention has resolved from admission. But he still has a fluid wave. Because of his obese pannus it is very difficult to assess for organomegaly. He still has edema of the scrotal sac, lower abdominal wall, all the way down to his ankles. But in the 3 days after taking care of him it has diminished slowly every day. He has 1 eschar on the right upper third locke. Another eschar on the left middle locke. Both wounds are clean, closed, no bruising, no redness no heat. Ambulates with a slight wide-based gait. Greater than 30 minutes was spent coordinating discharge. - ALLERGIES Allergies/Adverse Reactions: Allergies Allergy/AdvReac Type Severity Reaction Status Date / Time lisinopril Allergy Unknown Verified 02/15/20 10:11 - MEDICATIONS Home Medications: Ambulatory Orders Medication Instructions Recorded Confirmed Metformin HCl [Metformin ER 1,000 mg PO BID 07/24/12 02/15/20 Osmotic] Atorvastatin [Lipitor] 40 mg PO QPM 08/17/14 02/15/20 Albuterol Sulfate [Proair Hfa 1 - 2 puffs INH Q4H PRN 11/13/16 02/15/20 Inhaler] Aspirin [Adult Low Dose Aspirin EC] 81 mg PO DAILY 11/13/16 02/15/20 Insulin Glargine,Hum.rec.anlog 65 units SUBQ DAILY PM 11/13/16 02/15/20 [Basaglar Davepen U-100] Insulin Regular, Human [Humulin R] 15 - 30 units SUBQ TIDWM 11/13/16 02/15/20 [place]-3S/Dha/Epa/Fish Oil [Fish 1 cap ORAL DAILY 11/13/16 02/15/20 Oil [place]-3 Softgel] Cholecalciferol (Vitamin D3) 2,000 unit PO DAILY 02/24/17 02/15/20 [Vitamin D3] Fluticasone Propionate [Flovent 1 puffs IH DAILY 02/15/20 02/15/20 Diskus] Metoprolol Tartrate [Lopressor] 25 mg PO BID 02/15/20 02/15/20 Multivitamin W/Minerals [Theragran 1 tab PO DAILY 02/15/20 02/15/20 M] buPROPion HCL [Bupropion HCl Sr] 150 mg PO BID 02/15/20 02/15/20 Ferrous Sulfate 300 mg PO DAILY #150 ml 02/24/20 Spironolactone [Aldactone] 75 mg PO 0800,1300 #180 tablet 02/24/20 Thiamine [Vitamin B-1] 100 mg PO DAILY tablet 02/24/20 - LABS Result Diagrams: 02/24/20 04:50 02/24/20 04:50
[2020-02-25 13:07] LABS: HEPATITIS A IGM NON-REACTIVE (NON-REACTIVE); HEPATITIS B SURFACE ANTIGEN NON-REACTIVE (NON-REACTIVE); HEPATITIS C ANTIBODY NON-REACTIVE (NON-REACTIVE)
[2020-02-28 04:47] LABS: LIVER KIDNEY MICROSOME AB <20.0 U
== END 2020-02-24 12:09 | disposition home health service (06) | DRG 897 ==
LOC: ED 10:02 → ICU 12:30 → MS2 02-18 17:40
PROVIDERS: ADMIT Internal Medicine; ATTEND Specialist
PROC: 0W9G3ZZ Drainage of Peritoneal Cavity, Percutaneous Approach (ICD-10-PCS; principal; 2020-02-16)
PROC: 0W9G3ZZ Drainage of Peritoneal Cavity, Percutaneous Approach (ICD-10-PCS; 2020-02-18)
PROC: 0W9G3ZZ Drainage of Peritoneal Cavity, Percutaneous Approach (ICD-10-PCS; 2020-02-22)
DX: F10.139 Alcohol abuse with withdrawal, unspecified (principal); E87.1 Hypo-osmolality and hyponatremia; R60.1 Generalized edema; K70.9 Alcoholic liver disease, unspecified; N48.89 Other specified disorders of penis; E11.42 Type 2 diabetes mellitus with diabetic polyneuropathy; Z79.4 Long term (current) use of insulin; I95.9 Hypotension, unspecified; L98.8 Other specified disorders of the skin and subcutaneous tissue; L30.9 Dermatitis, unspecified; F41.9 Anxiety disorder, unspecified; F32.9 Major depressive disorder, single episode, unspecified; N13.9 Obstructive and reflux uropathy, unspecified; Z20.828 Contact with and (suspected) exposure to other viral communicable diseases; N50.89 Other specified disorders of the male genital organs; Z87.891 Personal history of nicotine dependence; R00.0 Tachycardia, unspecified; I10 Essential (primary) hypertension; E78.5 Hyperlipidemia, unspecified; R06.01 Orthopnea; D53.9 Nutritional anemia, unspecified; D50.9 Iron deficiency anemia, unspecified; E66.01 Morbid (severe) obesity due to excess calories; E11.65 Type 2 diabetes mellitus with hyperglycemia; K70.31 Alcoholic cirrhosis of liver with ascites
CPT/HCPCS: 36415; 49083; 51702; 71045; 72193; 80048; 80053; 80074; 81001; 82140; 82272; 82330; 82390; 82607; 82746; 82977; 83036; 83540; 83690; 83735; 84100; 84466; 84484; 85025; 85027; 85610; 85730; 86140; 86376; 87070; 87150; 87205; 87635; 89051; 93005; 94640; 96374; 97110; 97116; 97162; 97165; 97530; 99285; A6250; A9270; J1650; J1815; J7626; P9047; Q9967; 81003

== ENCOUNTER 2020-02-25 12:20 | Outpatient (CLI) | payer MEDICAID | END 2020-02-25 12:21 | disposition critical access hospital (66) | LOC: EMS 12:20 | PROVIDERS: ATTEND Surgery | DX: R53.1 Weakness (principal) | CPT/HCPCS: A0425; A0429; A0999 ==

== ENCOUNTER 2020-02-25 12:26 | Emergency (ER) | payer MEDICAID ==
--- NOTE | 2020-02-25 12:54 | ED Physician Documentation ---
History of Present Illness - Stated complaint Stated Complaint: FALL - Chief complaint Chief Complaint: General - History obtained from History obtained from: Patient, EMS - History of Present Illness Timing: Today Pain level max: 0 Pain level now: 0 - Additonal information Additional information: 49-year-old male presents to the emergency department after a fall at home today. He was discharged from the hospital yesterday after an approximately 10- day stay for liver failure. Had multiple paracentesis. Started on Lasix and spironolactone. He states he always has trouble getting up off of the floor, so called 911 to help pick him up. He states that the paramedics called "a doctor" and were told to bring him to the emergency department. Patient denies any injuries. He states he does not think he can take care of himself at home. He thinks he needs either respite care or a long-term. Nothing makes it better or worse Review of Systems Ten Systems: 10 systems reviewed and negative Constitutional: denies: Fever, Chills Nose: denies: Rhinorrhea / runny nose, Congestion GI: denies: Vomiting Skin: denies: Rash Musculoskeletal: denies: Neck pain, Back pain Neurologic: denies: Headache PD PAST MEDICAL HISTORY - Past Medical History Cardiovascular: Hypertension, High cholesterol Respiratory: Asthma, Other Neuro: Peripheral neuropathy Endocrine/Autoimmune: Type 2 diabetes GI: None : None HEENT: Other Psych: Depression, Anxiety Musculoskeletal: Osteoarthritis Derm: None - Past Surgical History Past Surgical History: Yes Ortho: Arthroscopic surgery - Present Medications Home Medications: Ambulatory Orders Medication Instructions Recorded Confirmed Metformin HCl [Metformin ER 1,000 mg PO BID 07/24/12 02/15/20 Osmotic] Atorvastatin [Lipitor] 40 mg PO QPM 08/17/14 02/15/20 Albuterol Sulfate [Proair Hfa 1 - 2 puffs INH Q4H PRN 11/13/16 02/15/20 Inhaler] Aspirin [Adult Low Dose Aspirin EC] 81 mg PO DAILY 11/13/16 02/15/20 Insulin Glargine,Hum.rec.anlog 65 units SUBQ DAILY PM 11/13/16 02/15/20 [Basaglar Angyikpen U-100] Insulin Regular, Human [Humulin R] 15 - 30 units SUBQ TIDWM 11/13/16 02/15/20 [place]-3S/Dha/Epa/Fish Oil [Fish 1 cap ORAL DAILY 11/13/16 02/15/20 Oil [place]-3 Softgel] Cholecalciferol (Vitamin D3) 2,000 unit PO DAILY 02/24/17 02/15/20 [Vitamin D3] Fluticasone Propionate [Flovent 1 puffs IH DAILY 02/15/20 02/15/20 Diskus] Metoprolol Tartrate [Lopressor] 25 mg PO BID 02/15/20 02/15/20 Multivitamin W/Minerals [Theragran 1 tab PO DAILY 02/15/20 02/15/20 M] buPROPion HCL [Bupropion HCl Sr] 150 mg PO BID 02/15/20 02/15/20 Ferrous Sulfate 300 mg PO DAILY #150 ml 02/24/20 Medical Supply, Miscellaneous 1 each MC DAILY #1 each 02/24/20 [Sea-Band] Spironolactone [Aldactone] 75 mg PO 0800,1300 #180 tablet 02/24/20 Thiamine [Vitamin B-1] 100 mg PO DAILY tablet 02/24/20 - Allergies Allergies/Adverse Reactions: Allergies Allergy/AdvReac Type Severity Reaction Status Date / Time lisinopril Allergy Unknown Verified 02/25/20 12:32 - Social History Does the pt smoke?: No Smoking Status: Never smoker Does the pt drink ETOH?: Yes Does the pt have substance abuse?: No - Immunizations Immunizations are current?: Yes - POLST Patient has POLST: No PD ED PE NORMAL - Vitals Vital signs reviewed: Yes - General General: Alert and oriented X 3, No acute distress - HEENT HEENT: Moist mucous membranes - Neck Neck: Supple, no meningeal sign - Cardiac Cardiac: RRR - Respiratory Respiratory: No respiratory distress, Clear bilaterally - Abdomen Abdomen: Soft, Other (Distended abdomen, obese. No signs of infection. No tenderness) - Derm Derm: Warm and dry - Extremities Extremities: Other (Firm pitting edema to the bilateral lower extremities. No evidence of infection) - Neuro Neuro: Alert and oriented X 3 - Psych Psych: Normal mood, Normal affect Results - Vitals Vitals: Vital Signs - 24 hr 02/25/20 02/25/20 02/25/20 12:29 14:26 16:05 Temperature 37.1 C Heart Rate 103 H 95 103 H Respiratory 16 18 18 Rate Blood Pressure 118/73 114/76 126/82 H O2 Saturation 99 100 99 Oxygen O2 Source Room air - Labs Labs: Laboratory Tests 02/25/20 02/25/20 02/25/20 12:58 12:58 12:58 WBC 6.5 RBC 3.49 L Hgb 11.7 L Hct 36.1 L MCV 103.4 H MCH 33.5 H MCHC 32.4 RDW 12.9 Plt Count 178 MPV 9.8 Neut # (Auto) 4.0 Lymph # (Auto) 1.3 L [place]uel # (Auto) 0.8 Eos # (Auto) 0.2 Baso # (Auto) 0.1 Absolute Nucleated RBC 0.00 Nucleated RBC % 0.0 PT 14.1 H INR 1.3 H Sodium 134 L Potassium 4.8 Chloride 100 L Carbon Dioxide 26 Anion Gap 8.0 BUN 21 H Creatinine 0.8 Estimated GFR (MDRD) 102 Glucose 231 H Calcium 8.8 Total Bilirubin 1.8 H AST 50 H ALT 23 Alkaline Phosphatase 85 Ammonia Total Protein 6.4 L Albumin 2.2 L Globulin 4.2 Albumin/Globulin Ratio 0.5 L Lipase 82 H Nasal Adenovirus (PCR) Nasal B. parapertussis DNA (PCR) Nasal Coronavir 229E PCR Nasal Coronavir HKU1 PCR Nasal Coronavir NL63 PCR Nasal Coronavir OC43 PCR Nasal Enterovir/Rhinovir PCR Nasal Influenza B PCR Nasal Influenza A PCR Nasal Parainfluen 1 PCR Nasal Parainfluen 2 PCR Nasal Parainfluen 3 PCR Nasal Parainfluen 4 PCR Nasal RSV (PCR) Nasal B.pertussis DNA PCR Nasal C.pneumoniae (PCR) Natanael Human Metapneumo PCR Nasal M.pneumoniae (PCR) Nasal SARS-CoV-2 (PCR) 02/25/20 02/25/20 12:58 12:58 WBC RBC Hgb Hct MCV MCH MCHC RDW Plt Count MPV Neut # (Auto) Lymph # (Auto) Deuel # (Auto) Eos # (Auto) Baso # (Auto) Absolute Nucleated RBC Nucleated RBC % PT INR Sodium Potassium Chloride Carbon Dioxide Anion Gap BUN Creatinine Estimated GFR (MDRD) Glucose Calcium Total Bilirubin AST ALT Alkaline Phosphatase Ammonia 42.9 H Total Protein Albumin Globulin Albumin/Globulin Ratio Lipase Nasal Adenovirus (PCR) NOT DETECTED Nasal B. parapertussis DNA (PCR) NOT DETECTED Nasal Coronavir 229E PCR NOT DETECTED Nasal Coronavir HKU1 PCR NOT DETECTED Nasal Coronavir NL63 PCR NOT DETECTED Nasal Coronavir OC43 PCR NOT DETECTED Nasal Enterovir/Rhinovir PCR NOT DETECTED Nasal Influenza B PCR NOT DETECTED Nasal Influenza A PCR NOT DETECTED Nasal Parainfluen 1 PCR NOT DETECTED Nasal Parainfluen 2 PCR NOT DETECTED Nasal Parainfluen 3 PCR NOT DETECTED Nasal Parainfluen 4 PCR NOT DETECTED Nasal RSV (PCR) NOT DETECTED Nasal B.pertussis DNA PCR NOT DETECTED Nasal C.pneumoniae (PCR) NOT DETECTED Natanael Human Metapneumo PCR NOT DETECTED Nasal M.pneumoniae (PCR) NOT DETECTED Nasal SARS-CoV-2 (PCR) NOT DETECTED PD MEDICAL DECISION MAKING - ED course Complexity details: reviewed old records, reviewed results, re-evaluated patient, considered differential, d/w patient, d/w product/industry consultant ED course: Patient is a 49-year-old male who was discharged from the hospital yesterday. He comes in today with inability to care for himself at home. It was recommended yesterday that he stay for ongoing physical therapy and diuresis. He still has significant bilateral lower extremity edema, pitting. He also has significant ascites still with difficulty breathing with little to no movement. He is unable to get out of bed by himself. He requires a two-person assist to get up. Social work was consulted and we are looking for placement. The hospital does have a swing bed program, but there was apparently an issue with the NPI number according to social work, therefore he could not be admitted to that. All other respite/long-term options will not be available until next week. The patient is currently remaining in the emergency department. I was informed later that the hospital does have an NPI number for the swing bed program, Therefore I spoke with the hospitalist, Dr. Cotton. She states that there is no mechanism to get him admitted to the swing bed program after 5pm on a Friday and cannot be admitted to the hospital. I spoke with the warehouse shipper, Elyssa, she spoke with her quilting supervisor and recommended admission to observation for continued diuresis, generalized weakness and deconditioning. I then spoke with Dr. Farooq, hospitalist who states he spoke with his medical grade shoemaker, who states that the patient is not to be admitted to or observed in the hospital at this time. Therefore the patient will continue to be boarded in the ER and reassessed tomorrow. Patient signed out to the oncoming emergency department physician. CXR: IMPRESSION: 1. Low lung volumes with probable atelectasis in the lung bases. 2. Mild pulmonary vascular prominence may reflect mild edema or vascular crowding. Departure - Departure Clinical Impression: Tachycardia, Anasarca, Swelling of the testicles, Physical deconditioning, Generalized weakness, Multiple falls Ascites Qualifiers: Ascites type: other type Qualified Code(s): R18.8 - Other ascites Condition: Stable
[2020-02-25 13:13] LABS: BASOPHILS # (AUTO) 0.1 10^3/uL (0.0-0.1); EOSINOPHILS # (AUTO) 0.2 10^3/uL (0.0-0.7); EOSINOPHILS % (AUTO) 3.2 %; HGB - HEMOGLOBIN 11.7 g/dL (14.0-18.0); LYMPHOCYTES # (AUTO) 1.3 10^3/uL (1.5-3.5); LYMPHOCYTES % (AUTO) 20.5 %; MEAN CORPUSCULAR HEMOGLOBIN 33.5 pg (27.0-31.0); MEAN CORPUSCULAR HGB CONC 32.4 g/dL (32.0-36.0); MEAN CORPUSCULAR VOLUME 103.4 fL (80.0-94.0); MEAN PLATELET VOLUME 9.8 fL (7.4-11.4); MONOCYTES # (AUTO) 0.8 10^3/uL (0.0-1.0); MONOCYTES % (AUTO) 11.7 %; NEUTROPHILS % (AUTO) 62.1 %; PLT - PLATELET COUNT 178 10^3/uL (130-450); RED BLOOD COUNT 3.49 10^6/uL (4.70-6.10); RED CELL DISTRIBUTION WIDTH 12.9 % (12.0-15.0); WHITE BLOOD COUNT 6.5 x10^3/uL (4.8-10.8)
[2020-02-25 13:17] LABS: INR 1.3 (0.8-1.2); PT - PROTHROMBIN TIME 14.1 secs (9.9-12.6)
[2020-02-25 13:26] LABS: ALBUMIN 2.2 g/dL (3.2-5.5); ALBUMIN/GLOBULIN RATIO 0.5 (1.0-2.2); BILIRUBIN,TOTAL 1.8 mg/dL (0.2-1.0); CALCIUM 8.8 mg/dL (8.5-10.3); CREATININE 0.8 mg/dL (0.6-1.2); TOTAL PROTEIN 6.4 g/dL (6.7-8.2)
[2020-02-25 14:03] LABS: C. PNEUMONIAE- RESP PCR PANEL NOT DETECTED
--- NOTE | 2020-02-25 20:46 | XRAY Report ---
PROCEDURE: Chest 1 View X-Ray INDICATIONS: dyspnea TECHNIQUE: One view of the chest was acquired. COMPARISON: 02/15/2020. FINDINGS: Surgical changes and devices: None. Lungs and pleura: There are low lung volumes. Linear right basilar opacities likely represent atelec tasis. Mild bony vascular prominence may represent mild edema or vascular crowding. No pleural effusi ons or pneumothorax. Mediastinum: Mediastinal contours appear unchanged. Heart size is normal. Bones and chest wall: No suspicious bony lesions. Overlying soft tissues appear unremarkable. IMPRESSION: 1. Low lung volumes with probable atelectasis in the lung bases. 2. Mild pulmonary vascular prominence may reflect mild edema or vascular crowding. Reviewed by: Jose Maria Martino MD on 02/25/2020 8:45 PM PST Approved by: Jose Maria Martino MD on 02/25/2020 8:45 PM PST Station ID: [id number]
[2020-02-26] MEDS: FERROUS SULFATE 325 MG TABLET PO SCH (09:13)
[2020-02-26] MEDS: ASPIRIN CHEW 81 MG TABLET PO SCH (09:13)
[2020-02-26] MEDS: buPROPion SR 150 MG TABLET PO SCH ×2 (09:13→21:14)
[2020-02-26] MEDS: metFORMIN 500 MG TABLET PO SCH ×2 (09:13→21:15)
[2020-02-26] MEDS: METOPROLOL TARTRATE 50 MG TABLET PO SCH ×2 (09:13→21:15)
[2020-02-26] MEDS: THIAMINE 100 MG TABLET PO SCH (09:14)
[2020-02-26] MEDS: SPIRONOLACTONE 25 MG TABLET PO SCH ×3 (09:14→21:15)
[2020-02-26] MEDS: ALBUTEROL 1 PUFF INH SCH ×4 (09:35→21:52)
[2020-02-26] MEDS: INSULIN REGULAR HUMAN 100 UNIT/1 ML 10 ML MDV SUBQ SCH ×2 (12:01→17:07)
[2020-02-26] MEDS ORDERED: INSULIN GLARGINE 300 UNIT/3 ML PEN SUBQ SCH (21:00)
[2020-02-26 21:46] VITALS: BP 135/84
[2020-02-27] MEDS: SPIRONOLACTONE 25 MG TABLET PO SCH ×2 (07:47→07:48)
[2020-02-27] MEDS: METOPROLOL TARTRATE 50 MG TABLET PO SCH (07:48)
[2020-02-27] MEDS: THIAMINE 100 MG TABLET PO SCH (07:51)
[2020-02-27] MEDS: INSULIN REGULAR HUMAN 100 UNIT/1 ML 10 ML MDV SUBQ SCH ×2 (07:54→12:22)
[2020-02-27] MEDS: ASPIRIN CHEW 81 MG TABLET PO SCH (07:54)
[2020-02-27] MEDS: metFORMIN 500 MG TABLET PO SCH (09:30)
[2020-02-27] MEDS: buPROPion SR 150 MG TABLET PO SCH (09:30)
[2020-02-27] MEDS: FERROUS SULFATE 325 MG TABLET PO SCH (09:30)
[2020-02-27] MEDS: ALBUTEROL 1 PUFF INH SCH (12:38)
[2020-02-27] MEDS ORDERED: SPIRONOLACTONE 25 MG TABLET PO SCH (13:00)
--- NOTE | 2020-02-27 14:16 | ED Physician Documentation ---
ED Addendum - Addendum Addendum: 02/27/20 14:13 Patient is feeling better today. Patient has been ambulating without assistance in the emergency department. He is requesting to go home at this time. He does not feel like he needs a prison facility or further rehab. He has a walker at home. Social work met with the patient again. Patient will be discharged under his own care. He has been getting up on his own, ambulating on his own and can care for himself. This document was made in part using voice recognition software. While efforts are made to proofread this document, sound alike and grammatical errors may occur. Departure - Departure Disposition: 01 Home, Self Care Clinical Impression: Tachycardia, Anasarca, Swelling of the testicles, Physical deconditioning, Generalized weakness, Multiple falls Ascites Qualifiers: Ascites type: other type Qualified Code(s): R18.8 - Other ascites Condition: Good Instructions: ED Edema Legs Bilateral Comments: Continue your current medications as well as your diuretics at home. You need to continue your fluid restriction as well. You should be drinking less than a liter of water per day currently.
== END 2020-02-27 14:44 | disposition home or self-care (01) ==
LOC: EDUNIT# → ED 12:26
DX: R18.8 Other ascites (principal); W19.XXXA Unspecified fall, initial encounter; Y92.009 Unspecified place in unspecified non-institutional (private) residence as the place of occurrence of the external cause; N48.89 Other specified disorders of penis; E11.42 Type 2 diabetes mellitus with diabetic polyneuropathy; Z79.4 Long term (current) use of insulin; Z91.81 History of falling; I10 Essential (primary) hypertension; K72.90 Hepatic failure, unspecified without coma; R00.0 Tachycardia, unspecified; Z20.828 Contact with and (suspected) exposure to other viral communicable diseases; R53.1 Weakness
CPT/HCPCS: 0202U; 36415; 71045; 80053; 82140; 83690; 85025; 85610; 94640; 99283; 99284; A9270; J1815

== ENCOUNTER 2020-03-04 13:55 | Outpatient (CLI) | payer MEDICAID | END 2020-03-04 13:56 | disposition critical access hospital (66) | LOC: EMS 13:55 | PROVIDERS: ATTEND Surgery | DX: N50.89 Other specified disorders of the male genital organs (principal); N50.812 Left testicular pain; N50.811 Right testicular pain | CPT/HCPCS: A0425; A0429; A0999 ==

== ENCOUNTER 2020-03-04 14:00 | Emergency (ER) | payer MEDICAID ==
--- NOTE | 2020-03-04 14:15 | ED Physician Documentation ---
PD HPI ABD PAIN - Stated complaint Stated Complaint: - Chief complaint Chief Complaint: General - History obtained from History obtained from: Patient - History of Present Illness Timing - onset: How many days ago (Gentleman was just released from the hospital several days ago with ascites and general edema. He is on a diuretic and was in the ER for several days actually when he returned with his comparable symptoms. He did improve in the ER but states he is having increased swelling of his abdomen/scrotum.) Timing - duration: Days (He has been taking his medications. He states he has been trying the fluid restrictions but probably drinking more than he ought to.) Timing - details: Gradual onset, Still present Quality: Fullness/distended (abdomen and scrotum, and also leg edema.). No: Cramping, Aching Location: All over / everywhere Radiation: No: Chest, Left flank, Right flank Worsened by: Moving Associated symptoms: Loss of appetite. No: Fever, Nausea, Vomiting, Diarrhea, Constipation Similar symptoms before: Diagnosis (Liver failure with edema and ascites. Has had scrotal swelling with this.) Recently seen: Emergency Dept (discharged just several days ago), Admitted Review of Systems Constitutional: denies: Fever, Chills Nose: denies: Rhinorrhea / runny nose, Congestion Throat: denies: Sore throat Cardiac: denies: Chest pain / pressure, Palpitations Respiratory: reports: Dyspnea. denies: Cough GI: reports: Abdominal Pain (tightness), Abdominal Swelling : reports: Other (scrotal edema and pain, increased the past couple days.). denies: Dysuria, Frequency Skin: reports: Rash (inguinal areas that is painful) Musculoskeletal: reports: Extremity swelling. denies: Neck pain, Back pain Neurologic: reports: Generalized weakness (he states is unable to get himself up and around since yesterday.). denies: Difficulty speaking, Altered mental status, Headache Endocrine: denies: Weight loss PD PAST MEDICAL HISTORY - Past Medical History Cardiovascular: Hypertension, High cholesterol Respiratory: Asthma, Other Neuro: Peripheral neuropathy Endocrine/Autoimmune: Type 2 diabetes GI: Cirrhosis : None HEENT: Other Psych: Depression, Anxiety Musculoskeletal: Osteoarthritis Derm: None - Past Surgical History Past Surgical History: Yes Ortho: Arthroscopic surgery - Present Medications Home Medications: Ambulatory Orders Medication Instructions Recorded Confirmed Metformin HCl [Metformin ER 1,000 mg PO BID 07/24/12 02/15/20 Osmotic] Atorvastatin [Lipitor] 40 mg PO QPM 08/17/14 02/15/20 Albuterol Sulfate [Proair Hfa 1 - 2 puffs INH Q4H PRN 11/13/16 02/15/20 Inhaler] Aspirin [Adult Low Dose Aspirin EC] 81 mg PO DAILY 11/13/16 02/15/20 Insulin Glargine,Hum.rec.anlog 65 units SUBQ DAILY PM 11/13/16 02/15/20 [Basaglar Kwikpen U-100] Insulin Regular, Human [Humulin R] 15 - 30 units SUBQ TIDWM 11/13/16 02/15/20 [place]-3S/Dha/Epa/Fish Oil [Fish 1 cap ORAL DAILY 11/13/16 02/15/20 Oil [place]-3 Softgel] Cholecalciferol (Vitamin D3) 2,000 unit PO DAILY 02/24/17 02/15/20 [Vitamin D3] Fluticasone Propionate [Flovent 1 puffs IH DAILY 02/15/20 02/15/20 Diskus] Metoprolol Tartrate [Lopressor] 25 mg PO BID 02/15/20 02/15/20 Multivitamin W/Minerals [Theragran 1 tab PO DAILY 02/15/20 02/15/20 M] buPROPion HCL [Bupropion HCl Sr] 150 mg PO BID 02/15/20 02/15/20 Ferrous Sulfate 300 mg PO DAILY #150 ml 02/24/20 Medical Supply, Miscellaneous 1 each MC DAILY #1 each 02/24/20 [Sea-Band] Spironolactone [Aldactone] 75 mg PO 0800,1300 #180 tablet 02/24/20 Thiamine [Vitamin B-1] 100 mg PO DAILY tablet 02/24/20 Clotrimazole/Betamethasone Crm 1 applic TOP BID #30 g 03/04/20 [Lotrisone Cream] Fluconazole [Diflucan] 150 mg PO Q3D #2 tablet 03/04/20 Furosemide [Lasix] 40 mg PO DAILY #15 tablet 03/04/20 - Allergies Allergies/Adverse Reactions: Allergies Allergy/AdvReac Type Severity Reaction Status Date / Time lisinopril Allergy Unknown Verified 03/04/20 14:09 - Social History Does the pt smoke?: No Smoking Status: Never smoker Does the pt drink ETOH?: Yes Does the pt have substance abuse?: No - Immunizations Immunizations are current?: Yes - POLST Patient has POLST: No PD ED PE NORMAL - Vitals Vital signs reviewed: Yes - General General: Alert and oriented X 3, Well developed/nourished, Other (Obese with notable edema in the legs and distention of the abdomen. There is marked scrotal edema with general tenderness. Redness in the inguinal creases with some superficial skin breakdown in the right side consistent with yeast) - HEENT HEENT: Atraumatic, Ears normal, Moist mucous membranes, Pharynx benign - Neck Neck: Supple, no meningeal sign, No adenopathy - Cardiac Cardiac: RRR, No murmur - Respiratory Respiratory: Clear bilaterally - Abdomen Abdomen: Soft, No organomegaly, Other (Significant abdominal distention with mild general tenderness. Dullness to percussion. No focal tenderness.) - Male Male : Other (scrotal edema and crural rash.) - Rectal Rectal: Deferred - Derm Derm: Normal color, Warm and dry - Extremities Extremities: No calf tenderness / cord, Other (Edema in both legs and ankles and thighs.) - Neuro Neuro: Alert and oriented X 3, No motor deficit, Normal speech Results - Vitals Vitals: Vital Signs - 24 hr 03/04/20 03/04/20 03/04/20 14:09 15:02 16:12 Temperature 36.3 C L Heart Rate 116 H 112 H 111 H Respiratory 22 16 15 Rate Blood Pressure 145/86 H 136/96 H 138/97 H O2 Saturation 98 96 93 Oxygen O2 Source Room air - Labs Labs: Laboratory Tests 03/04/20 03/04/20 03/04/20 14:22 14:22 14:22 WBC 5.4 RBC 3.13 L Hgb 10.4 L Hct 32.2 L MCV 102.9 H MCH 33.2 H MCHC 32.3 RDW 13.3 Plt Count 192 MPV 9.6 Neut # (Auto) 3.0 Lymph # (Auto) 1.1 L [place] # (Auto) 0.9 Eos # (Auto) 0.2 Baso # (Auto) 0.1 Absolute Nucleated RBC 0.00 Nucleated RBC % 0.0 PT 14.7 H INR 1.3 H Sodium 132 L Potassium 4.1 Chloride 99 L Carbon Dioxide 24 Anion Gap 9.0 BUN 19 Creatinine 0.8 Estimated GFR (MDRD) 102 Glucose 211 H Calcium 8.2 L Magnesium Total Bilirubin 2.1 H AST 43 H ALT 24 Alkaline Phosphatase 81 Ammonia Total Protein 6.7 Albumin 2.4 L Globulin 4.3 H Albumin/Globulin Ratio 0.6 L Lipase 83 H Ethyl Alcohol < 5.0 03/04/20 03/04/20 14:22 14:22 WBC RBC Hgb Hct MCV MCH MCHC RDW Plt Count MPV Neut # (Auto) Lymph # (Auto) [place] # (Auto) Eos # (Auto) Baso # (Auto) Absolute Nucleated RBC Nucleated RBC % PT INR Sodium Potassium Chloride Carbon Dioxide Anion Gap BUN Creatinine Estimated GFR (MDRD) Glucose Calcium Magnesium 1.8 Total Bilirubin AST ALT Alkaline Phosphatase Ammonia 20.6 Total Protein Albumin Globulin Albumin/Globulin Ratio Lipase Ethyl Alcohol PD MEDICAL DECISION MAKING - ED course Complexity details: re-evaluated patient (Patient states he is breathing a little bit easier. His labs and electrolytes are doing okay. Chest x-ray showed some mild vascular engorgement. Scrotal ultrasound is pending results.), considered differential (He states he is taking his diuretics but can more fluid than prescribed. He has increased ascites and scrotal edema and leg edema. He states he is unable to get up on his own and care for himself. Hoping for placement at [facility].), d/w patient ED course: Social work talked with the patient and discussed the issue of placement in a SNF. This would not be available at this time on the weekend. Carriage ([facility] would [facility]) could consider him on Friday when the middleware administrator is there. The patient was able to ambulate to the bathroom with a walker. He would not really have criteria for admission at this point. He is on spironolactone. He is not on Lasix and so we could add that to it to improve his diuresis. Discharged home and then to work on SNF placement on Friday. Departure - Departure Disposition: Home, Self Care Clinical Impression: Scrotal edema, Tinea cruris, Ascites of liver, Generalized edema, Generalized weakness Condition: Stable Record reviewed to determine appropriate education?: Yes Follow-Up: Montrell Brady MD [Primary Care Provider] - Prescriptions: Fluconazole [Diflucan] 150 mg PO Q3D #2 tablet Furosemide [Lasix] 40 mg PO DAILY #15 tablet Clotrimazole/Betamethasone Crm [Lotrisone Cream] 1 applic TOP BID #30 g Comments: Continue your current medications and fluid restrictions. To that add furosemide 40 mg each morning for the next couple of weeks. It does look like you have a yeast infection in the groin on both sides and more on the right. This is causing a fair amount of your pain. We can treated with antifungals both orally and topically as directed. Follow-up with your primary care and [facility] on Friday regarding [facility] placement. Return as needed if worsening.
[2020-03-04 14:31] LABS: BASOPHILS # (AUTO) 0.1 10^3/uL (0.0-0.1); BASOPHILS % (AUTO) 1.9 %; EOSINOPHILS # (AUTO) 0.2 10^3/uL (0.0-0.7); EOSINOPHILS % (AUTO) 3.9 %; HGB - HEMOGLOBIN 10.4 g/dL (14.0-18.0); LYMPHOCYTES # (AUTO) 1.1 10^3/uL (1.5-3.5); LYMPHOCYTES % (AUTO) 20.9 %; MEAN CORPUSCULAR HEMOGLOBIN 33.2 pg (27.0-31.0); MEAN CORPUSCULAR HGB CONC 32.3 g/dL (32.0-36.0); MEAN CORPUSCULAR VOLUME 102.9 fL (80.0-94.0); MEAN PLATELET VOLUME 9.6 fL (7.4-11.4); MONOCYTES # (AUTO) 0.9 10^3/uL (0.0-1.0); MONOCYTES % (AUTO) 16.1 %; NEUTROPHILS % (AUTO) 56.8 %; PLT - PLATELET COUNT 192 10^3/uL (130-450); RED BLOOD COUNT 3.13 10^6/uL (4.70-6.10); RED CELL DISTRIBUTION WIDTH 13.3 % (12.0-15.0); WHITE BLOOD COUNT 5.4 x10^3/uL (4.8-10.8)
[2020-03-04 14:35] LABS: INR 1.3 (0.8-1.2); PT - PROTHROMBIN TIME 14.7 secs (9.9-12.6)
[2020-03-04] MEDS ORDERED: HYDROmorphone 1 MG/ML CARPUJECT IVP STA (14:36)
[2020-03-04] MEDS ORDERED: FUROSEMIDE 40 MG/4 ML VIAL IVP STA (14:36)
[2020-03-04] MEDS ORDERED: FLUCONAZOLE 100 MG TABLET PO STA (14:39)
[2020-03-04 14:45] LABS: ALBUMIN 2.4 g/dL (3.2-5.5); ALBUMIN/GLOBULIN RATIO 0.6 (1.0-2.2); ALKALINE PHOSPHATASE 81 IU/L (42-121); ALT ALANINE AMINOTRANSFERASE 24 IU/L (10-60); AST ASPARTATE AMINOTRANSFERASE 43 IU/L (10-42); BILIRUBIN,TOTAL 2.1 mg/dL (0.2-1.0); BUN - BLOOD UREA NITROGEN 19 mg/dL (6-20); CALCIUM 8.2 mg/dL (8.5-10.3); CARBON DIOXIDE - CO2 24 mmol/L (21-32); CHLORIDE 99 mmol/L (101-111); CREATININE 0.8 mg/dL (0.6-1.2); GLUCOSE 211 mg/dL (70-100); LIPASE 83 U/L (22-51); SODIUM 132 mmol/L (135-145); TOTAL PROTEIN 6.7 g/dL (6.7-8.2)
--- NOTE | 2020-03-04 17:14 | XRAY Report ---
PROCEDURE: Chest 1 View X-Ray INDICATIONS: dyspnea TECHNIQUE: One view of the chest was acquired. COMPARISON: CXR 02/25/2020, 02/15/2020.. FINDINGS: Surgical changes and devices: None. Lungs and pleura: No significant pleural effusions. No pneumothorax. Pulmonary vasculature engorgeme nt. Low lung volumes. Mediastinum: Mediastinal contours appear normal. Heart size is within normal limits. Bones and chest wall: No suspicious bony lesions. Overlying soft tissues appear unremarkable. IMPRESSION: Suspect pulmonary vasculature engorgement. Low lung volumes. Reviewed by: Duane Hameed MD on 03/04/2020 4:12 PM [facility] Approved by: Duane Hameed MD on 03/04/2020 4:12 PM [facility] Station ID: [id number]
--- NOTE | 2020-03-04 18:25 | ED Physician Documentation ---
ED Addendum - Addendum Addendum: 03/04/20 18:24 Patient was awaiting discharge, Dr. Kowalski had discharged him and left the building after shift change. I noted him to be briefly tachycardic to 140s on the monitor and asked for an EKG to be done. The nurse reports that he was having a panic attack at the time. EKG done at 1813 hrs. discloses mild sinus tachycardia with a rate of 111, some artifact, borderline low voltage and long QT. He remained much less tachycardic than that subsequently and the nurse will carry on with the discharge.
[2020-03-04 18:45] VITALS: BP 155/89
--- NOTE | 2020-03-04 18:45 | Ultrasound Report ---
PROCEDURE: Testicle w/Doppler INDICATIONS: edema and scrotal pain TECHNIQUE: Real-time scanning was performed of the scrotum and testicles, with image documentation. Color and p ulse Doppler interrogation was performed of both testicles. COMPARISON: None. FINDINGS: Right: Testicle is normal in size at 3.8 x 2.7 x 2.5 cm, and homogenous in echotexture. Epididymis is normal in overall size and morphology. No varicocele. Trace hydrocele. Overlying scrotal skin is s ignificantly edematous measuring up to 3.4 cm in thickness. Left: Testicle is normal in size at 3.6 x 2.3 x 2.6 cm, and homogeneous in echotexture. Epididymis is normal in overall size and morphology. No varicocele. Trace hydrocele. Overlying scrotal skin sig nificantly edematous measuring up to 4.0 cm in thickness. Doppler: Color and pulse Doppler demonstrate normal and symmetric arterial flow in both testicles. IMPRESSION: 1. Severe scrotal edema. 2. Normal testicles. Reviewed by: Raulito Vega on 03/04/2020 6:43 PM PST Approved by: Raulito Vega on 03/04/2020 6:43 PM PST Station ID: [id number]
== END 2020-03-04 18:54 | disposition home or self-care (01) ==
LOC: EDUNIT# → ED 14:00
DX: N50.89 Other specified disorders of the male genital organs (principal); B35.6 Tinea cruris; R60.1 Generalized edema; R53.1 Weakness; E11.42 Type 2 diabetes mellitus with diabetic polyneuropathy; Z79.4 Long term (current) use of insulin; I10 Essential (primary) hypertension; E66.9 Obesity, unspecified; I45.81 Long QT syndrome
CPT/HCPCS: 36415; 71045; 76870; 80053; 80320; 82140; 83690; 83735; 85025; 85610; 93005; 93975; 96374; 96375; 99284; A9270; J1170

== ENCOUNTER 2020-03-09 08:00 | Outpatient (CLI) | payer MEDICAID ==
[2020-03-09 15:41] LABS: BASOPHILS # (AUTO) 0.1 10^3/uL (0.0-0.1); BASOPHILS % (AUTO) 1.8 %; EOSINOPHILS # (AUTO) 0.2 10^3/uL (0.0-0.7); EOSINOPHILS % (AUTO) 3.1 %; HGB - HEMOGLOBIN 11.5 g/dL (14.0-18.0); LYMPHOCYTES # (AUTO) 1.3 10^3/uL (1.5-3.5); LYMPHOCYTES % (AUTO) 20.6 %; MEAN CORPUSCULAR HGB CONC 33.8 g/dL (32.0-36.0); MEAN CORPUSCULAR VOLUME 100.6 fL (80.0-94.0); MEAN PLATELET VOLUME 9.5 fL (7.4-11.4); MONOCYTES # (AUTO) 0.8 10^3/uL (0.0-1.0); MONOCYTES % (AUTO) 12.7 %; NEUTROPHILS # (AUTO) 3.7 10^3/uL (1.5-6.6); NEUTROPHILS % (AUTO) 61.5 %; PLT - PLATELET COUNT 196 10^3/uL (130-450); RED BLOOD COUNT 3.38 10^6/uL (4.70-6.10); RED CELL DISTRIBUTION WIDTH 13.3 % (12.0-15.0); WHITE BLOOD COUNT 6.1 x10^3/uL (4.8-10.8)
[2020-03-09 16:01] LABS: ALBUMIN 2.6 g/dL (3.2-5.5); ALBUMIN/GLOBULIN RATIO 0.6 (1.0-2.2); BILIRUBIN,TOTAL 2.4 mg/dL (0.2-1.0); CALCIUM 8.6 mg/dL (8.5-10.3); CREATININE 0.9 mg/dL (0.6-1.2); TOTAL PROTEIN 7.2 g/dL (6.7-8.2)
== END 2020-03-09 23:59 ==
LOC: LAB.R 08:00
PROVIDERS: ATTEND Internal Medicine
DX: R60.9 Edema, unspecified (principal); K70.31 Alcoholic cirrhosis of liver with ascites; F10.239 Alcohol dependence with withdrawal, unspecified
CPT/HCPCS: 80053; 85025

== ENCOUNTER 2020-03-16 08:00 | Outpatient (CLI) | payer MEDICAID ==
[2020-03-16 12:27] LABS: ALBUMIN 2.5 g/dL (3.2-5.5); ALBUMIN/GLOBULIN RATIO 0.6 (1.0-2.2); BILIRUBIN,TOTAL 2.9 mg/dL (0.2-1.0); CALCIUM 8.3 mg/dL (8.5-10.3); CREATININE 0.9 mg/dL (0.6-1.2); TOTAL PROTEIN 6.7 g/dL (6.7-8.2)
[2020-03-16 12:52] LABS: FOLATE 13.11 ng/mL (5.90 - >24.8)
== END 2020-03-16 23:59 ==
LOC: LAB.R 08:00
PROVIDERS: ATTEND Internal Medicine
DX: K70.31 Alcoholic cirrhosis of liver with ascites (principal); D64.9 Anemia, unspecified; R10.9 Unspecified abdominal pain
CPT/HCPCS: 80053; 82607; 82746; 83690

== ENCOUNTER 2020-03-18 11:47 | Inpatient (IN) | payer MEDICAID ==
--- NOTE | 2020-03-18 12:59 | ED Physician Documentation ---
PD HPI DYSPNEA - Stated complaint Stated Complaint: RETAINING WATER - Chief complaint Chief Complaint: General - History obtained from History obtained from: Patient - History of Present Illness Timing - onset: How many weeks ago (1 week or more of increased abd/leg edema. Had Furosemide increased from 20 to 40 mg and still with weight gain, abd distension worse and increased abd/scrotal pain, particularly the past 3 days.) Timing - onset during: Light activity Timing - duration: Weeks (1) Timing - details: Gradual onset, Still present Inciting event(s): No: Out of meds, URI Improved by: Rest, Sitting up Worsened by: Exertion, Laying flat (feeling more pressure in chest with lying.) Associated symptoms: Bilateral edema. No: Fever, Cough, Wheezing, Unilateral edema Similar symptoms before: Diagnosis (Alcoholic liver disease with ascites and scrotal and leg edema. Has appointment with GI on the .) Recently seen: Emergency Dept (about 2 weeks ago with ER treatment and increased diuretics at home.), Admitted (1 month ago with diuresis.) Review of Systems Constitutional: denies: Fever, Chills, Myalgias Nose: denies: Rhinorrhea / runny nose, Congestion Throat: denies: Sore throat Cardiac: denies: Chest pain / pressure Respiratory: reports: Dyspnea. denies: Cough, Wheezing GI: reports: Abdominal Pain, Abdominal Swelling, Nausea. denies: Vomiting, Diarrhea : denies: Dysuria (has indwelling nagy.) PD PAST MEDICAL HISTORY - Past Medical History Cardiovascular: Hypertension, High cholesterol Respiratory: Asthma, Other Neuro: Peripheral neuropathy Endocrine/Autoimmune: Type 2 diabetes GI: Cirrhosis : None HEENT: Other Psych: Depression, Anxiety Musculoskeletal: Osteoarthritis Derm: None - Past Surgical History Past Surgical History: Yes Ortho: Arthroscopic surgery - Present Medications Home Medications: Ambulatory Orders Medication Instructions Recorded Confirmed Metformin HCl [Metformin ER 1,000 mg PO BID 07/24/12 02/15/20 Osmotic] Atorvastatin [Lipitor] 40 mg PO QPM 08/17/14 02/15/20 Albuterol Sulfate [Proair Hfa 1 - 2 puffs INH Q4H PRN 11/13/16 02/15/20 Inhaler] Aspirin [Adult Low Dose Aspirin EC] 81 mg PO DAILY 11/13/16 02/15/20 Insulin Glargine,Hum.rec.anlog 65 units SUBQ DAILY PM 11/13/16 02/15/20 [Basaglar Kwikpen U-100] Insulin Regular, Human [Humulin R] 15 - 30 units SUBQ TIDWM 11/13/16 02/15/20 [place]-3S/Dha/Epa/Fish Oil [Fish 1 cap ORAL DAILY 11/13/16 02/15/20 Oil [place]-3 Softgel] Cholecalciferol (Vitamin D3) 2,000 unit PO DAILY 02/24/17 02/15/20 [Vitamin D3] Fluticasone Propionate [Flovent 1 puffs IH DAILY 02/15/20 02/15/20 Diskus] Metoprolol Tartrate [Lopressor] 25 mg PO BID 02/15/20 02/15/20 Multivitamin W/Minerals [Theragran 1 tab PO DAILY 02/15/20 02/15/20 M] buPROPion HCL [Bupropion HCl Sr] 150 mg PO BID 02/15/20 02/15/20 Ferrous Sulfate 300 mg PO DAILY #150 ml 02/24/20 Medical Supply, Miscellaneous 1 each MC DAILY #1 each 02/24/20 [Sea-Band] Spironolactone [Aldactone] 75 mg PO 0800,1300 #180 tablet 02/24/20 Thiamine [Vitamin B-1] 100 mg PO DAILY tablet 02/24/20 Clotrimazole/Betamethasone Crm 1 applic TOP BID #30 g 03/04/20 [Lotrisone Cream] Fluconazole [Diflucan] 150 mg PO Q3D #2 tablet 03/04/20 Furosemide [Lasix] 40 mg PO DAILY #15 tablet 03/04/20 - Allergies Allergies/Adverse Reactions: Allergies Allergy/AdvReac Type Severity Reaction Status Date / Time lisinopril Allergy Unknown Verified 03/18/20 12:08 - Social History Does the pt smoke?: No Smoking Status: Never smoker Does the pt drink ETOH?: Yes Does the pt have substance abuse?: No - Immunizations Immunizations are current?: Yes - POLST Patient has POLST: No PD ED PE NORMAL - Vitals Vital signs reviewed: Yes - General General: Alert and oriented X 3, Well developed/nourished - HEENT HEENT: Moist mucous membranes, Pharynx benign - Neck Neck: Supple, no meningeal sign, No adenopathy, No JVD - Cardiac Cardiac: No: RRR - Respiratory Respiratory: Clear bilaterally (but diminished at bases) - Abdomen Abdomen: Other (Very distended with tenseness and shifting dullness to percussion. Small umbilical hernia that is pushing out but not seemingly tissue contents. Bowel sounds are diminished. Scrotum is also significantly edematous. Both abdomen and scrotum are increased in size and tenseness since my prior exam.) - Male Male : Other (very edematous scrotum. ) - Rectal Rectal: Deferred - Back Back: No CVA TTP - Derm Derm: Normal color, Warm and dry - Extremities Extremities: No calf tenderness / cord, Other (Bilateral leg edema from the knees on down. No calf tenderness per se.) - Neuro Neuro: Alert and oriented X 3 Eye Opening: Spontaneous Motor: Obeys Commands Results - Vitals Vitals: Vital Signs - 24 hr 03/18/20 03/18/20 03/18/20 12:08 12:38 14:12 Temperature 36.4 C L 36.9 C Heart Rate 103 H 113 H 111 H Respiratory 20 28 H 24 Rate Blood Pressure 145/87 H 152/97 H 161/100 H O2 Saturation 94 98 100 Oxygen O2 Source Room air - EKG (time done) 13:34 Rate: Rate (enter#) (109) Rhythm: Sinus tachycardia [place]: Normal Intervals: Normal [place] QRS: Normal Ischemia: Normal ST segments. No: ST elevation c/w ischemia, ST depression - Labs Labs: Laboratory Tests 03/18/20 03/18/20 03/18/20 13:54 13:54 13:54 WBC 4.7 L RBC 3.56 L Hgb 11.8 L Hct 35.4 L MCV 99.4 H MCH 33.1 H MCHC 33.3 RDW 13.5 Plt Count 149 MPV 9.7 Neut # (Auto) 2.6 Lymph # (Auto) 1.0 L [facility] # (Auto) 0.7 Eos # (Auto) 0.3 Baso # (Auto) 0.1 Absolute Nucleated RBC 0.00 Nucleated RBC % 0.0 Sodium 137 Potassium 3.5 Chloride 94 L Carbon Dioxide 27 Anion Gap 16.0 H BUN 19 Creatinine 0.9 Estimated GFR (MDRD) 89 Glucose 240 H Calcium 9.2 Magnesium 1.6 L Total Bilirubin 3.4 H AST 44 H ALT 24 Alkaline Phosphatase 83 B-Natriuretic Peptide 42 Total Protein 7.4 Albumin 2.7 L Globulin 4.7 H Albumin/Globulin Ratio 0.6 L Lipase 74 H - Rads (name of study) chest xray Radiology: Prelim report reviewed (no acute process), See rad report PD MEDICAL DECISION MAKING - ED course Complexity details: re-evaluated patient (Outputting in the [place] after some IV Lasix and an improved amount. Several 100 cc at this time. He still has significant symptoms with feeling abdominal distention and scrotal pain. I think he needs more vigorous diuresis at this point.), considered differential (History of liver disease with ascites, scrotal edema, leg edema with worsening symptoms despite increased diuretics. Having dyspnea on exertion and significant abdominal pain because of distention), d/w contact center consultant (Hospitalist) ED course: Her PCR panel is done in anticipation of the patient being hospitalized to evaluate for respiratory precautions for the staff. Abdominal pain seems to be related to distention. It is tight as is his scrotum. I do not get a sense of the degree of tenderness I would expect from peritonitis so a did not feel a diagnostic paracentesis is needed. Therapeutic paracentesis may be indicated and defer to the hospitalist. Departure - Departure Disposition: ED Place in Observation
[2020-03-18] MEDS ORDERED: diphenhydrAMINE INJ 50 MG/ML VIAL IVP STA (13:25)
[2020-03-18] MEDS ORDERED: FUROSEMIDE 100 MG/10 ML VIAL IVP STA (13:25)
--- NOTE | 2020-03-18 13:57 | XRAY Report ---
PROCEDURE: Chest 1 View X-Ray INDICATIONS: chest pain TECHNIQUE: One view of the chest was acquired. COMPARISON: 03/04/2020 FINDINGS: Surgical changes and devices: None. Lungs and pleura: No pleural effusions or pneumothorax. Lungs are clear. Elevation of right hemidi aphragm is again seen. Mediastinum: Mediastinal contours appear normal. Heart size is normal. Bones and chest wall: No suspicious bony lesions. Overlying soft tissues appear unremarkable. IMPRESSION: Chronic elevation of right hemidiaphragm. No acute cardiopulmonary pathology. Reviewed by: Tyler Pelayo MD on 03/18/2020 1:55 PM [facility] Approved by: Tyler Pelayo MD on 03/18/2020 1:55 PM [facility] Station ID: [id number]
[2020-03-18 14:04] LABS: BASOPHILS # (AUTO) 0.1 10^3/uL (0.0-0.1); BASOPHILS % (AUTO) 2.5 %; EOSINOPHILS # (AUTO) 0.3 10^3/uL (0.0-0.7); HGB - HEMOGLOBIN 11.8 g/dL (14.0-18.0); LYMPHOCYTES % (AUTO) 20.3 %; MEAN CORPUSCULAR HEMOGLOBIN 33.1 pg (27.0-31.0); MEAN CORPUSCULAR HGB CONC 33.3 g/dL (32.0-36.0); MEAN CORPUSCULAR VOLUME 99.4 fL (80.0-94.0); MEAN PLATELET VOLUME 9.7 fL (7.4-11.4); MONOCYTES # (AUTO) 0.7 10^3/uL (0.0-1.0); MONOCYTES % (AUTO) 14.2 %; NEUTROPHILS # (AUTO) 2.6 10^3/uL (1.5-6.6); NEUTROPHILS % (AUTO) 55.8 %; PLT - PLATELET COUNT 149 10^3/uL (130-450); RED BLOOD COUNT 3.56 10^6/uL (4.70-6.10); RED CELL DISTRIBUTION WIDTH 13.5 % (12.0-15.0); WHITE BLOOD COUNT 4.7 x10^3/uL (4.8-10.8)
[2020-03-18 14:16] LABS: ALBUMIN 2.7 g/dL (3.2-5.5); ALBUMIN/GLOBULIN RATIO 0.6 (1.0-2.2); BILIRUBIN,TOTAL 3.4 mg/dL (0.2-1.0); CALCIUM 9.2 mg/dL (8.5-10.3); CREATININE 0.9 mg/dL (0.6-1.2); MAGNESIUM 1.6 mg/dL (1.7-2.8); TOTAL PROTEIN 7.4 g/dL (6.7-8.2)
[2020-03-18] MEDS ORDERED: HYDROmorphone 1 MG/ML CARPUJECT IVP STA (15:37)
[2020-03-18] MEDS ORDERED: ONDANSETRON 4 MG/2 ML VIAL IVP PRN (16:09)
[2020-03-18 16:24] LABS: MUDS CUTOFF CONCENTRATIONS CUTOFF CONC BELOW:
[2020-03-18 16:32] LABS: INR 1.3 (0.8-1.2); PT - PROTHROMBIN TIME 14.2 secs (9.9-12.6)
[2020-03-18 16:38] LABS: COCAINE SCREEN URINE NEGATIVE (NEGATIVE); METHAMPHETAMINES SCREEN, URINE NEGATIVE (NEGATIVE)
[2020-03-18 16:39] LABS: AMPHETAMINE SCREEN,URINE NEGATIVE (NEGATIVE); BENZODIAZEPINES SCREEN, URINE POSITIVE (NEGATIVE); METHADONE SCREEN, URINE NEGATIVE (NEGATIVE); OPIATE SCREEN, URINE POSITIVE (NEGATIVE); OXYCODONE SCREEN, URINE NEGATIVE (NEGATIVE); PROPOXYPHENE SCREEN, URINE NEGATIVE (NEGATIVE); TRICYCLIC ANTIDEPRESSANT,URINE NEGATIVE (NEGATIVE)
[2020-03-18] MEDS ORDERED: INSULIN REGULAR HUMAN 300 UNIT/3 ML VIAL SUBQ SCH (17:00)
[2020-03-18] MEDS ORDERED: INSULIN GLARGINE 300 UNIT/3 ML PEN SUBQ SCH (17:00)
[2020-03-18] MEDS: SPIRONOLACTONE 25 MG TABLET PO SCH (17:32)
[2020-03-18] MEDS: INSULIN ASPART 300 UNIT/3 ML PEN SUBQ SCH ×2 (17:33→21:35)
[2020-03-18 17:38] LABS: C. PNEUMONIAE- RESP PCR PANEL NOT DETECTED
[2020-03-18] MEDS: SODIUM CHLORIDE FLUSH 0.9% 10 ML SYRINGE IVP SCH ×2 (17:38→23:59)
--- NOTE | 2020-03-18 20:35 | HISTORY & PHYSICAL EXAMINATION ---
DATE OF SERVICE: 03/18/2020 Physician: Lili Hubbard MD HISTORY OF PRESENT ILLNESS: This is a 49-year-old white male with a history of obesity, diabetes mellitus on insulin, and alcohol abuse. He was admitted here 1 month ago with anasarca with pitting edema up to the level of his axillae, ascites that needed 3 separate paracenteses, and scrotal and penile edema that needed a Blunt since it was so edematous that it obstructed his urine output. He had to go home with a Blunt catheter. He was put on high doses of Lasix and spironolactone and has continued this. He has decreased his alcohol intake. Over the last 1-2 weeks he has noticed worsening fluid retention again and increasing abdominal girth and because of that has noticed orthopnea. He came to the ER with that complaint. The patient again has a tense abdomen, distended with ascites. He again has pitting edema to the level of his hips with anasarca despite higher doses of Lasix prescribed by his PCP over the last 1 week. He also has continued scrotal enlargement and complains of pain when the scrotum is hanging and has his indwelling Blunt in place. PAST MEDICAL HISTORY: Alcohol abuse, diabetes mellitus on insulin, and morbid obesity. 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 He is a nonsmoker. FAMILY HISTORY: No inherited diseases. REVIEW OF SYSTEMS: He denies any fever, nausea, vomiting, or diarrhea; no cough or sputum production. A comprehensive review of systems was performed and the pertinent positives are listed, the rest are negative. PHYSICAL EXAMINATION GENERAL: Cachectic white male, which is different from just 1 month ago, with a very distended abdomen that is tense and uncomfortable. VITAL SIGNS: Blood pressure 145/87, heart rate 100-111 in sinus rhythm, afebrile, room air saturation 98%. HEAD/NECK: HEENT shows temporal wasting, and he is edentulous. Neck has no JVD in a supine position. CHEST: Clear at the anterior bases. HEART: Heart sounds tachycardic. No audible murmur. ABDOMEN: Severely distended, very tense, mildly tender to light palpation with a positive fluid wave, and cannot evaluate his organ sizes. GENITALIA: His scrotum has 3+ edema, and the penis does have edema, and a Blunt is in place. EXTREMITIES: 3+ pitting edema to his hips. NEUROLOGIC: He has no liver flap, no nystagmus, and no tremor. His gait was not assessed, but on the last admission, he had a wide-based gait. SKIN: The skin is pale, and he has wasting of his arm muscles and hand muscles and temporal wasting. LABORATORY DATA: Sodium 137, potassium 3.5, BUN 19, creatinine 0.9, glucose 233, magnesium 1.6, AST 44, ALT 24. BNP 42, albumin 2.7. Lipase 74. INR of 1.3. White blood count 4.7, hemoglobin 11.8, with MCV of 99 and platelet count normal at 149. He had viral respiratory panel done and is COVID negative. He had urine drug screen done showing positive opiates and positive benzodiazepines. Serum alcohol level showed no alcohol present. CHEST X-RAY: Chronic elevation of the right hemidiaphragm but no acute cardiopulmonary pathology with normal heart size. EKG: Sinus tachycardia at a rate of 109 and LVH voltage, nonspecific diffuse T- wave flattening inferolaterally. IMPRESSION/DIAGNOSES 1. Ascites, recurrent, tense. 2. Anasarca, recurrent or chronic. 3. Penile edema. 4. Scrotal edema. 5. Chronic indwelling Blunt. 6. Diabetes mellitus. 7. Morbid obesity. PLAN: Place the patient in Observation status on telemetry. Start IV twice daily diuretics to treat the anasarca. Plan paracentesis, which has helped him before, just 1 month ago. Start a diabetic diet that has a 2000 liter a day total fluid restriction, 1000 liters orally, and 1000 liters in IVs and medications. Follow his electrolytes daily. Continue with his Spironolactone. Continue with his long-acting and short-acting mealtime insulin and add sliding scale insulin coverage from fingerstick Accu-Chek results. He has yet to be seen by a Cardiac Rehab Nurse, which was recommended at the last discharge, and states that there is an appointment finally scheduled on 04/03/2020, which he should keep. DEEP VENOUS THROMBOSIS PROPHYLAXIS: SCDs. CODE STATUS: FULL CODE. ATTESTATION: Patient is expected to be discharged or transferred to another facility within 96 hours: Yes. cc: Ina Castillo MD TD: 03/18/2020 19:07 timi MAYS
[2020-03-18] MEDS: FAMOTIDINE 20 MG TABLET PO SCH (21:34)
[2020-03-19 05:35] LABS: MEAN CORPUSCULAR HEMOGLOBIN 32.9 pg (27.0-31.0); MEAN CORPUSCULAR HGB CONC 33.2 g/dL (32.0-36.0); MEAN CORPUSCULAR VOLUME 99.1 fL (80.0-94.0); MEAN PLATELET VOLUME 9.7 fL (7.4-11.4); RED BLOOD COUNT 3.34 10^6/uL (4.70-6.10); RED CELL DISTRIBUTION WIDTH 13.4 % (12.0-15.0)
[2020-03-19 06:00] LABS: ALBUMIN 2.4 g/dL (3.2-5.5); ALBUMIN/GLOBULIN RATIO 0.6 (1.0-2.2); BILIRUBIN,TOTAL 2.7 mg/dL (0.2-1.0); CALCIUM 8.6 mg/dL (8.5-10.3); CREATININE 0.8 mg/dL (0.6-1.2); TOTAL PROTEIN 6.6 g/dL (6.7-8.2)
[2020-03-19] MEDS ORDERED: FUROSEMIDE 40 MG/4 ML VIAL IVP SCH (06:00)
[2020-03-19] MEDS: SODIUM CHLORIDE FLUSH 0.9% 10 ML SYRINGE IVP PRN ×2 (06:19→22:02)
[2020-03-19] MEDS: INSULIN ASPART 300 UNIT/3 ML PEN SUBQ SCH ×3 (07:55→16:48)
[2020-03-19] MEDS: SPIRONOLACTONE 25 MG TABLET PO SCH (07:56)
[2020-03-19] MEDS: SODIUM CHLORIDE FLUSH 0.9% 10 ML SYRINGE IVP SCH ×3 (08:33→23:53)
[2020-03-19] MEDS: FAMOTIDINE 20 MG TABLET PO SCH ×2 (08:33→21:02)
--- NOTE | 2020-03-19 09:07 | PHARMACY PROGRESS NOTE ---
- Best Possible Medication History Admit Date and Time: 03/18/20 1556 Processed by: Pharmacy Medication History completed: Yes Patient Interview: Completed Secondary Source(s): Physician records, Insurance records As the person ultimately responsible for medication therapy, providers are able to order a medication from an existing home medication list in [facility] via the "Reconcile Routine" prior to Confirmation of that medication by business support manager. Such practice is discouraged except when the physician, in their clinical judgment, deems that a medical need exists for a medication without regard to previous use.
[2020-03-19] MEDS: METOPROLOL SUCCINATE 25 MG TABLET PO SCH ×2 (10:14→21:00)
[2020-03-19] MEDS ORDERED: ALBUMIN 25% 12.5 GM/50 ML VIAL IV STA (11:35)
--- NOTE | 2020-03-19 13:06 | Ultrasound Report ---
PROCEDURE: Abdominal Paracentesis INDICATIONS: Tense ascites TECHNIQUE: Real-time scanning was performed of the abdomen, and a suitable site was marked by the so nographer for paracentesis to be performed by the referring clinician. COMPARISON: None. FINDINGS: There is free fluid present; a spot in the right lower quadrant was marked for paracentesis . Distance from the skin surface to the peritoneal free fluid is 1.7 cm. IMPRESSION: Right lower quadrant skin marking for performance of paracentesis. Reviewed by: Reese Richardson MD on 03/19/2020 12:05 PM [facility] Approved by: Reese Richardson MD on 03/19/2020 12:05 PM [facility] Station ID: [id number]
--- NOTE | 2020-03-19 14:19 | OPERATIVE REPORT ---
Operative Report - General Admit Date: 03/18/20 Procedure Date: 03/19/20 Planned Procedure: Large volume paracentesis Pre-Op Diagnosis: Alcoholic cirrhosis with symptomatic ascites Procedure Performed: Therapeutic large-volume paracentesis Post Op Diagnosis: Same - Procedure Note Primary Surgeon: Clari Anesthesia Technique: Local Estimated Blood Loss (mL): 1 Indications: Symptomatic ascites Findings: 10 liters of russet colored peritoneal fluid Complications: None apparent - Other Other Information/Narrative: After obtaining informed consent, the patient was placed in the supine position and made comfortable in his hospital bed. Verbal and written consent were obtained for the procedure. The ultrasound was used to identify a clear window of opportunity in the right lower quadrant for placement of a paracentesis catheter. This area was marked. Using the provided kit, the area over the kirill was prepped and draped in the standard surgical fashion. The skin was anesth etized with 8 mL of 1% lidocaine. A 2 mm barbara was created in the skin over the abdominal wall at this site. The catheter was directed into the abdominal wall while aspirating to detect entrance into the peritoneal cavity. The catheter was then advanced without the needle and the needle was completely removed. The port catheter was then hooked to vacuum bottles. Clear to straw-colored fluid was then aspirated from the peritoneal cavity. In all, 10L of blood tinged fluid was removed. The catheter was then disconnected from suction, it was removed under direct vision. The wound was cleaned and a pressure dressing was applied. All sponge, needle, and instrument counts were correct at the conclusion of the case. The patient tolerated the procedure very well.
--- NOTE | 2020-03-19 15:51 | PROVIDER PROGRESS NOTE ---
Assessment/Plan - Problem List (1) Ascites Assessment/Plan: This morning general surgery, Dr. Snyder, performed paracentesis with ultrasound guidance. 10 L of yellow, possibly slightly bloody fluid was removed. His abdomen is not tense, he can breathe and says he can now eat. IV Lasix was only given x1 today, not bid, for fear that he would drop his pressure after having a very large paracentesis of 10 L fluid removed, and expect third spacing and blood pressure drop as he did 1 month ago. Will resume IV Lasix tomorrow. Will give 1 unit of albumin IV today. Will not discharge today because of the large volume of paracentesis that was removed and risk of resultant hypotension. (2) Tachycardia Assessment/Plan: He has had persistent tachycardia, possibly partly from being uncomfortable from the tense ascites. But, even after paracentesis he remains tachycardic at 106, and this could be from intravascular volume depletion due to third spacing from serum into peritoneum. 1 unit of IV albumin will be given today. Hold the second dose of Spironolactone and Lasix today. No discharge today (3) Anasarca Assessment/Plan: He presented with anasarca, severe pitting edema up to the level of his upper thighs, still has a swollen scrotum and may be a swollen penis (requiring indwelling Blunt for urine output). IV Lasix was only given x1 today, not bid, for fear that he would drop his pressure after having a very large paracentesis of 10 L fluid removed, and expect third spacing and blood pressure drop as he did 1 month ago. Will resume IV Lasix tomorrow. (4) Alcoholic liver disease Assessment/Plan: Patient does say he quit alcohol abuse since his last hospitalization, no alcohol intake for 24 days. Social Work to visit with him regarding continued abstinence. He will need resumption of [facility], bath aide and PT, after Dch (5) Diabetes mellitus, insulin dependent (IDDM), uncontrolled Assessment/Plan: Leukosis are running in the 200s and this is only with getting his sliding scale insulin so far, no long-acting agents. We will continue to hold the long-acting insulin and continue SS insulin. Possibly at home his calorie intake is bigger. Will get dietary consult tomorrow, to help with recommendations regarding his Lantus dosing. (Today Friday, dietary not here on weekend). (6) Hx of essential hypertension Assessment/Plan: His other BP meds are on hold while he has a "soft" blood pressure - Current Meds Current Meds: Current Medications Generic Name Dose Route Start Last Admin Trade Name Freq PRN Reason Stop Dose Admin Famotidine 20 mg 03/18/20 21:00 03/19/20 08:33 Famotidine 20 Mg Tablet PO 20 mg BID JOY Administration Insulin Aspart 1 - 5 unit 03/18/20 17:00 03/19/20 11:48 Insulin Aspart 300 Unit/3 Ml Pen SUBQ 3 unit 0800,1200,1700,2100 JOY Administration Protocol Metoprolol Succinate 25 mg 03/19/20 09:00 03/19/20 10:14 Metoprolol Succinate 25 Mg Tablet PO 25 mg BID JOY Administration Sodium Chloride 10 ml 03/18/20 16:09 03/19/20 06:19 Sodium Chloride Flush 0.9% 10 Ml Syringe IVP 10 ml PRN PRN Administration NEEDED PER PROVIDER ORDERS Sodium Chloride 10 ml 03/18/20 17:00 03/19/20 08:33 Sodium Chloride Flush 0.9% 10 Ml Syringe IVP 10 ml 0100,0900,1700 JOY Administration - Lab Result Fish Bone Diagrams: 03/19/20 05:01 03/19/20 05:01 - Additional Planning My Orders: My Active Orders 03/18/20 16:09 Activity Orders [RC] Q2HR IO [RC] IOSHIFT Initiate Bowel Care Protocol [RC] .protocol Initiate Personal Care Protoco [RC] .protocol Telemetry (24 Hour) [RC] Q4HR Vital Signs [RC] Q4HR Sodium Chloride Flush 0.9% [Normal Saline Flush 0.9%] 10 ml IVP PRN PRN Code Status [OTHERS] Routine Condition of Patient [OTHERS] Routine DVT Prophylaxis [OTHERS] Routine 03/18/20 16:10 Daily Weight [RC] 0600 IV Insert [RC] .ONCE SCDs [RC] QSHIFT 03/18/20 16:11 Initiate Line Care Protocol [RC] QSHIFT 03/18/20 Dinner Carb-controlled Diet [DIET] 03/18/20 16:37 Blood Glucose Checks - Eating [RC] 0800,1200,1700,2100 Initiate Hypoglycemia Protocol [RC] .protocol 03/18/20 17:00 Insulin Aspart [NovoLOG] 1 - 5 unit SUBQ 0800,1200,1700,2100 Insulin Glargine [Lantus Solostar] DOSE unit SUBQ DAILY PM Insulin Regular Human [Humulin R] DOSE unit SUBQ TIDWM Sodium Chloride Flush 0.9% [Normal Saline Flush 0.9%] 10 ml IVP 0100,0900,1700 03/18/20 21:00 Famotidine [Pepcid] 20 mg PO BID 03/19/20 Home Health Referral [CONS] Routine 03/19/20 09:00 Metoprolol Succinate [Toprol Xl] 25 mg PO BID 03/20/20 05:00 MAGNESIUM [CHEM] DAILYLAB Subjective - Subjective Patient Reports: Feeling Better, Resting Comfortably Objective Vital Signs: Vital Signs - 24 hr 03/18/20 03/18/20 03/18/20 16:16 16:45 21:00 Temperature 37.0 C 37.0 C 37.2 C Heart Rate 109 H Heart Rate [ 102 H Brachial] Heart Rate [ 104 H Monitoring electrodes] Respiratory 93 H 16 18 Rate Blood Pressure 138/86 H Blood Pressure 153/95 H 148/95 H [Left Brachial artery] Blood Pressure [Right Brachial artery] O2 Saturation 20 L 97 94 03/19/20 03/19/20 03/19/20 00:11 05:00 06:00 Temperature 37.2 C 37.3 C Heart Rate Heart Rate [ 101 H 107 H 107 H Brachial] Heart Rate [ Monitoring electrodes] Respiratory 17 15 20 Rate Blood Pressure Blood Pressure 142/87 H 147/86 H [Left Brachial artery] Blood Pressure 139/78 H [Right Brachial artery] O2 Saturation 94 91 L 92 03/19/20 03/19/20 03/19/20 07:38 13:23 15:47 Temperature 37.2 C 373 C H 37.4 C Heart Rate Heart Rate [ 108 H 111 H 99 Brachial] Heart Rate [ Monitoring electrodes] Respiratory 16 20 20 Rate Blood Pressure Blood Pressure [Left Brachial artery] Blood Pressure 142/79 H 129/79 124/74 [Right Brachial artery] O2 Saturation 94 97 94 Oxygen O2 Source Room air I&O (Last 24 Hrs): Intake and Output Totals x24h 03/17/20 03/18/20 03/19/20 23:59 23:59 23:59 Intake Total 250 670 Output Total 4010 4315 Balance -1500 -1505 General: Alert, Oriented x3 HEENT: Mucous membr. moist/pink, Other (edentulous) Neuro: Alert, Non Focal Cardiovascular: Regular rate, No murmurs Respiratory: No respiratory distress Abdomen: Soft, Other (Mildly to moderately distended, nontender, slight bowel sounds) Genitourinary: Other (Mildly enlarged penis, severely enlarged scrotum, in a sling) Extremities: Other (3+ edema to the mid thighs) - Results Results: Laboratory Results WBC 5.0 x10^3/uL (4.8-10.8) 03/19/20 05:01 RBC 3.34 10^6/uL (4.70-6.10) L 03/19/20 05:01 Hgb 11.0 g/dL (14.0-18.0) L 03/19/20 05:01 Hct 33.1 % (42.0-52.0) L 03/19/20 05:01 MCV 99.1 fL (80.0-94.0) H 03/19/20 05:01 MCH 32.9 pg (27.0-31.0) H 03/19/20 05:01 MCHC 33.2 g/dL (32.0-36.0) 03/19/20 05:01 RDW 13.4 % (12.0-15.0) 03/19/20 05:01 Plt Count 147 10^3/uL (130-450) 03/19/20 05:01 MPV 9.7 fL (7.4-11.4) 03/19/20 05:01 Neut # (Auto) 2.6 10^3/uL (1.5-6.6) 03/18/20 13:54 Lymph # (Auto) 1.0 10^3/uL (1.5-3.5) L 03/18/20 13:54 Runnels # (Auto) 0.7 10^3/uL (0.0-1.0) 03/18/20 13:54 Eos # (Auto) 0.3 10^3/uL (0.0-0.7) 03/18/20 13:54 Baso # (Auto) 0.1 10^3/uL (0.0-0.1) 03/18/20 13:54 Absolute Nucleated RBC 0.00 x10^3/uL 03/18/20 13:54 Nucleated RBC % 0.0 /100WBC 03/18/20 13:54 PT 14.2 secs (9.9-12.6) H 03/18/20 13:54 INR 1.3 (0.8-1.2) H 03/18/20 13:54 Sodium 134 mmol/L (135-145) L 03/19/20 05:01 Potassium 3.6 mmol/L (3.5-5.0) 03/19/20 05:01 Chloride 101 mmol/L (101-111) 03/19/20 05:01 Carbon Dioxide 28 mmol/L (21-32) 03/19/20 05:01 Anion Gap 5.0 (6-13) L 03/19/20 05:01 BUN 19 mg/dL (6-20) 03/19/20 05:01 Creatinine 0.8 mg/dL (0.6-1.2) 03/19/20 05:01 Estimated GFR (MDRD) 102 (>89) 03/19/20 05:01 Glucose 187 mg/dL (70-100) H 03/19/20 05:01 POC Whole Bld Glucose 261 mg/dL (70 - 100) H 03/19/20 11:10 Calcium 8.6 mg/dL (8.5-10.3) 03/19/20 05:01 Magnesium 1.7 mg/dL (1.7-2.8) 03/19/20 05:01 Total Bilirubin 2.7 mg/dL (0.2-1.0) H 03/19/20 05:01 AST 37 IU/L (10-42) 03/19/20 05:01 ALT 22 IU/L (10-60) 03/19/20 05:01 Alkaline Phosphatase 71 IU/L (42-121) 03/19/20 05:01 B-Natriuretic Peptide 42 pg/mL (5-100) 03/18/20 13:54 Total Protein 6.6 g/dL (6.7-8.2) L 03/19/20 05:01 Albumin 2.4 g/dL (3.2-5.5) L 03/19/20 05:01 Globulin 4.2 g/dL (2.1-4.2) 03/19/20 05:01 Albumin/Globulin Ratio 0.6 (1.0-2.2) L 03/19/20 05:01 Lipase 74 U/L (22-51) H 03/18/20 13:54 Nasal Adenovirus (PCR) NOT DETECTED 03/18/20 15:55 Nasal B. parapertussis DNA (PCR) NOT DETECTED 03/18/20 15:55 Nasal Coronavir 229E PCR NOT DETECTED 03/18/20 15:55 Nasal Coronavir HKU1 PCR NOT DETECTED 03/18/20 15:55 Nasal Coronavir NL63 PCR NOT DETECTED 03/18/20 15:55 Nasal Coronavir OC43 PCR NOT DETECTED 03/18/20 15:55 Nasal Enterovir/Rhinovir PCR NOT DETECTED 03/18/20 15:55 Nasal Influenza B PCR NOT DETECTED 03/18/20 15:55 Nasal Influenza A PCR NOT DETECTED 03/18/20 15:55 Nasal Parainfluen 1 PCR NOT DETECTED 03/18/20 15:55 Nasal Parainfluen 2 PCR NOT DETECTED 03/18/20 15:55 Nasal Parainfluen 3 PCR NOT DETECTED 03/18/20 15:55 Nasal Parainfluen 4 PCR NOT DETECTED 03/18/20 15:55 Nasal RSV (PCR) NOT DETECTED 03/18/20 15:55 Nasal B.pertussis DNA PCR NOT DETECTED 03/18/20 15:55 Nasal C.pneumoniae (PCR) NOT DETECTED 03/18/20 15:55 Natanael Human Metapneumo PCR NOT DETECTED 03/18/20 15:55 Nasal M.pneumoniae (PCR) NOT DETECTED 03/18/20 15:55 Nasal SARS-CoV-2 (PCR) NOT DETECTED 03/18/20 15:55 Urine Opiates Screen POSITIVE (NEGATIVE) H 03/18/20 16:19 Ur Oxycodone Screen NEGATIVE (NEGATIVE) 03/18/20 16:19 Urine Methadone Screen NEGATIVE (NEGATIVE) 03/18/20 16:19 Ur Propoxyphene Screen NEGATIVE (NEGATIVE) 03/18/20 16:19 Ur Barbiturates Screen NEGATIVE (NEGATIVE) 03/18/20 16:19 Ur Tricyclics Screen NEGATIVE (NEGATIVE) 03/18/20 16:19 Ur Phencyclidine Scrn NEGATIVE (NEGATIVE) 03/18/20 16:19 Ur Amphetamine Screen NEGATIVE (NEGATIVE) 03/18/20 16:19 U Methamphetamines Scrn NEGATIVE (NEGATIVE) 03/18/20 16:19 U Benzodiazepines Scrn POSITIVE (NEGATIVE) H 03/18/20 16:19 Urine Cocaine Screen NEGATIVE (NEGATIVE) 03/18/20 16:19 U Cannabinoids Screen NEGATIVE (NEGATIVE) 03/18/20 16:19 Ethyl Alcohol < 5.0 mg/dL 03/18/20 13:54 - Procedures Procedures: Procedures DRAINAGE OF PERITONEAL CAVITY, PERCUTANEOUS APPROACH (02/15/20)
[2020-03-19] MEDS ORDERED: INSULIN ASPART 300 UNIT/3 ML PEN SUBQ SCH (21:00)
[2020-03-19] MEDS ORDERED: ALBUMIN 25% 12.5 GM/50 ML VIAL IV ONE (21:33)
[2020-03-20] MEDS ORDERED: MAGNESIUM SULFATE 2 GRAM 2 GM/50 ML BAG IV ONE (08:00)
[2020-03-20] MEDS: INSULIN ASPART 300 UNIT/3 ML PEN SUBQ SCH ×4 (08:13→21:07)
[2020-03-20] MEDS: FAMOTIDINE 20 MG TABLET PO SCH ×2 (08:21→21:06)
[2020-03-20] MEDS: METOPROLOL SUCCINATE 25 MG TABLET PO SCH ×2 (08:21→21:06)
--- NOTE | 2020-03-20 09:01 | Discharge Plan ---
Discharge Plan Problem Reviewed?: Yes Disposition: Home Health Service Diet: Diabetic Activity Restrictions: Activity as Tolerated Shower Restrictions: No Health Concerns: You were here for a paracentesis and 10 L of ascites fluid was removed. IV diuretics were used to treat persistent severe fluid retention. Resume all your prehospital medications now. Plan of Treatment: As above. Health services will be resumed. Continue to not use any alcohol. Care Goals: Improvement in symptoms and stabilization are the goals. Assessment: Understands and is agreeable with the plan. No Smoking: If you smoke, Please STOP! Call for help. Follow-up with: Ina Castillo MD [Primary Care Provider] -
[2020-03-20 09:55] LABS: CALCIUM 8.2 mg/dL (8.5-10.3); CREATININE 0.8 mg/dL (0.6-1.2); MAGNESIUM 1.7 mg/dL (1.7-2.8)
[2020-03-20] MEDS: SODIUM CHLORIDE FLUSH 0.9% 10 ML SYRINGE IVP SCH ×3 (10:10→23:49)
[2020-03-20] MEDS ORDERED: FUROSEMIDE 40 MG/4 ML VIAL IVP STA (10:39)
--- NOTE | 2020-03-20 11:11 | PROVIDER PROGRESS NOTE ---
Assessment/Plan - Problem List (1) Ascites Assessment/Plan: Patient notices the abdomen is more distended and getting more tense. He will likely need another paracentesis. Looking forward, he could have general surgery schedule weekly paracentesis for example. Will admit the patient to full inpatient status to further manage his worsening ascites w/ iv Lasix, oral Spironolactone and paracentesis when needed. (2) Tachycardia Assessment/Plan: Continues to be mildly tachycardic at 100-1 10. We will continue to adjust his medications, he got albumin to try to prevent intravascular volume depletion causing secondary tachycardia. (3) Anasarca Assessment/Plan: Patient still has tense 3+ pitting edema to the upper thighs. Continue with IV twice daily Lasix, electrolyte replacement as needed. Will add oral Metolazone daily, 1 hour before his 1400 loop diuretic dose, to promote diuresis Follow BMP daily. Follow I's and O's and daily weight (4) Scrotal edema Assessment/Plan: Unchanged. The pain improved by giving him a sling made out of cloth (5) Swelling of penis Assessment/Plan: Unchanged. He continues to need her chronic indwelling Blunt. (6) Alcoholic liver disease Assessment/Plan: As per Hx. He has abstained since the last admission 1 mo ago. He used to drink a 6-pack or more of beer a day. Continue vitamins and Thiamine orally. (7) Weakness Assessment/Plan: The patient qualified for home health PT and OT. It was to be resumed after Dch. The physical therapist of [facility] emailed our multiple slide operator today, stating that the patient was unsafe to be discharged home, as he could not care for himself and needed more aggressive therapy than provided by home health PT and OT. Since being here, he cannot even get out of bed by himself. His arms have marked cachexia, new since just 1 month ago. Patient will be made full Inpatient status and be evaluated by PT and OT for potential discharge to a SNF for rehab and strengthening. (8) Hyponatremia Assessment/Plan: He had normal sodium at admission but was volume overloaded. With IV diuresis he is becoming more hyponatremic daily. This is hypervolemic hyponatremia. He has already been instituted on a total fluid/day restriction. Will not add any saline because of his severe volume overload. Will add oral Metolazone daily, 1 hour before his 1400 loop diuretic dose. Follow BMP daily. (9) Diabetes mellitus, insulin dependent (IDDM), uncontrolled Assessment/Plan: At admission is reconciled meds showed very high doses of Lantus insulin. Here he is only been getting sliding scale insulin and no long-acting forms whatsoever and glucoses are in the 200s. Dietitian consult was requested and she met with the patient and learned that he has been injecting his insulin into the abdomen where he has anasarca therefore may be not absorbed. He also told the dietitian that he was not using any Lantus whatsoever. (Reconciled meds were wrong at admission, this was reported to the pharmacy today). After discussion with dietitian, will start very low-dose Lantus 10 units at at bedtime and continue diabetic diet and sliding scale insulin coverage. (10) Hx of essential hypertension Assessment/Plan: As per history. His combination of meds are controlling blood pressure. (11) Chronic low back pain Assessment/Plan: Ported this to the RN today and requested a lidocaine patch. We will order lidocaine patch topical. - Current Meds Current Meds: Current Medications Generic Name Dose Route Start Last Admin Trade Name Freq PRN Reason Stop Dose Admin Famotidine 20 mg 03/18/20 21:00 03/20/20 08:21 Famotidine 20 Mg Tablet PO 20 mg BID JOY Administration Insulin Aspart 2 - 10 unit 03/20/20 08:00 03/20/20 08:13 Insulin Aspart 300 Unit/3 Ml Pen SUBQ 4 unit 0800,1200,1700,2100 JOY Administration Protocol Metoprolol Succinate 25 mg 03/19/20 09:00 03/20/20 08:21 Metoprolol Succinate 25 Mg Tablet PO 25 mg BID JOY Administration Sodium Chloride 10 ml 03/18/20 16:09 03/19/20 22:02 Sodium Chloride Flush 0.9% 10 Ml Syringe IVP 20 ml PRN PRN Administration NEEDED PER PROVIDER ORDERS Sodium Chloride 10 ml 03/18/20 17:00 03/20/20 10:10 Sodium Chloride Flush 0.9% 10 Ml Syringe IVP 10 ml 0100,0900,1700 JOY Administration - Lab Result Fish Bone Diagrams: 03/19/20 05:01 03/20/20 09:40 - Additional Planning My Orders: My Active Orders 03/20/20 Evaluate and Treat OT [OT] Routine Evaluate and Treat PT [PT] Routine 03/20/20 09:01 Dietary [Nutrition Consult] [CONS] Routine 03/20/20 11:05 Admit \ Transfer \ Status [RC] .ONCE Subjective - Subjective Patient Reports: Other (He feels like his abdomen is filling up again and is tense & uncomfortable. Abd so big that he cannot get out of bed alone) Nursing Reports: Other (The multiple slide operator Princess, got an email from the Home Health agency that was to resume after DCh, that this patient cannot be discharged home safely. He does not participate in PT or OT. He does not get out of bed and take care of himself much less be a caregiver for his mother.) Objective Vital Signs: Vital Signs - 24 hr 03/19/20 03/19/20 03/19/20 13:23 15:47 21:00 Temperature 373 C H 37.4 C 37.3 C Heart Rate [ 111 H 99 101 H Brachial] Respiratory 20 20 18 Rate Blood Pressure 86/55 L [Left Brachial artery] Blood Pressure 129/79 124/74 [Right Brachial artery] O2 Saturation 97 94 94 03/19/20 03/20/20 03/20/20 23:46 04:52 05:31 Temperature 37.7 C 37.2 C Heart Rate [ 100 100 96 Brachial] Respiratory 20 16 20 Rate Blood Pressure 93/58 L [Left Brachial artery] Blood Pressure 111/68 116/72 [Right Brachial artery] O2 Saturation 94 93 94 03/20/20 07:31 Temperature 36.6 C Heart Rate [ 98 Brachial] Respiratory 18 Rate Blood Pressure [Left Brachial artery] Blood Pressure 113/63 [Right Brachial artery] O2 Saturation 96 Oxygen O2 Source Room air I&O (Last 24 Hrs): Intake and Output Totals x24h 03/18/20 03/19/20 03/20/20 23:59 23:59 23:59 Intake Total 250 1070 1410 Output Total 1750 2525 410 Balance -1500 -1455 1000 General: Alert, Oriented x3 HEENT: Mucous membr. moist/pink Neck: Supple Neuro: Alert, Non Focal, Other (No nystagmus or asterixis) Cardiovascular: Regular rate Respiratory: No respiratory distress, Breath sounds nml Abdomen: Other (Moderately distended, tense, Diminished bowel sounds) Extremities: Other (3+ pitting edema to the level of the hips (this is unchanged from even the last admission)) - Results Results: Laboratory Results WBC 5.0 x10^3/uL (4.8-10.8) 03/19/20 05:01 RBC 3.34 10^6/uL (4.70-6.10) L 03/19/20 05:01 Hgb 11.0 g/dL (14.0-18.0) L 03/19/20 05:01 Hct 33.1 % (42.0-52.0) L 03/19/20 05:01 MCV 99.1 fL (80.0-94.0) H 03/19/20 05:01 MCH 32.9 pg (27.0-31.0) H 03/19/20 05:01 MCHC 33.2 g/dL (32.0-36.0) 03/19/20 05:01 RDW 13.4 % (12.0-15.0) 03/19/20 05:01 Plt Count 147 10^3/uL (130-450) 03/19/20 05:01 MPV 9.7 fL (7.4-11.4) 03/19/20 05:01 Neut # (Auto) 2.6 10^3/uL (1.5-6.6) 03/18/20 13:54 Lymph # (Auto) 1.0 10^3/uL (1.5-3.5) L 03/18/20 13:54 [place] # (Auto) 0.7 10^3/uL (0.0-1.0) 03/18/20 13:54 Eos # (Auto) 0.3 10^3/uL (0.0-0.7) 03/18/20 13:54 Baso # (Auto) 0.1 10^3/uL (0.0-0.1) 03/18/20 13:54 Absolute Nucleated RBC 0.00 x10^3/uL 03/18/20 13:54 Nucleated RBC % 0.0 /100WBC 03/18/20 13:54 PT 14.2 secs (9.9-12.6) H 03/18/20 13:54 INR 1.3 (0.8-1.2) H 03/18/20 13:54 Sodium 132 mmol/L (135-145) L 03/20/20 09:40 Potassium 3.7 mmol/L (3.5-5.0) 03/20/20 09:40 Chloride 97 mmol/L (101-111) L 03/20/20 09:40 Carbon Dioxide 26 mmol/L (21-32) 03/20/20 09:40 Anion Gap 9.0 (6-13) 03/20/20 09:40 BUN 20 mg/dL (6-20) 03/20/20 09:40 Creatinine 0.8 mg/dL (0.6-1.2) 03/20/20 09:40 Estimated GFR (MDRD) 102 (>89) 03/20/20 09:40 Glucose 275 mg/dL (70-100) H 03/20/20 09:40 POC Whole Bld Glucose 195 mg/dL (70 - 100) H 03/20/20 07:29 Calcium 8.2 mg/dL (8.5-10.3) L 03/20/20 09:40 Magnesium 1.7 mg/dL (1.7-2.8) 03/20/20 09:40 Total Bilirubin 2.7 mg/dL (0.2-1.0) H 03/19/20 05:01 AST 37 IU/L (10-42) 03/19/20 05:01 ALT 22 IU/L (10-60) 03/19/20 05:01 Alkaline Phosphatase 71 IU/L (42-121) 03/19/20 05:01 B-Natriuretic Peptide 42 pg/mL (5-100) 03/18/20 13:54 Total Protein 6.6 g/dL (6.7-8.2) L 03/19/20 05:01 Albumin 2.4 g/dL (3.2-5.5) L 03/19/20 05:01 Globulin 4.2 g/dL (2.1-4.2) 03/19/20 05:01 Albumin/Globulin Ratio 0.6 (1.0-2.2) L 03/19/20 05:01 Lipase 74 U/L (22-51) H 03/18/20 13:54 Nasal Adenovirus (PCR) NOT DETECTED 03/18/20 15:55 Nasal B. parapertussis DNA (PCR) NOT DETECTED 03/18/20 15:55 Nasal Coronavir 229E PCR NOT DETECTED 03/18/20 15:55 Nasal Coronavir HKU1 PCR NOT DETECTED 03/18/20 15:55 Nasal Coronavir NL63 PCR NOT DETECTED 03/18/20 15:55 Nasal Coronavir OC43 PCR NOT DETECTED 03/18/20 15:55 Nasal Enterovir/Rhinovir PCR NOT DETECTED 03/18/20 15:55 Nasal Influenza B PCR NOT DETECTED 03/18/20 15:55 Nasal Influenza A PCR NOT DETECTED 03/18/20 15:55 Nasal Parainfluen 1 PCR NOT DETECTED 03/18/20 15:55 Nasal Parainfluen 2 PCR NOT DETECTED 03/18/20 15:55 Nasal Parainfluen 3 PCR NOT DETECTED 03/18/20 15:55 Nasal Parainfluen 4 PCR NOT DETECTED 03/18/20 15:55 Nasal RSV (PCR) NOT DETECTED 03/18/20 15:55 Nasal B.pertussis DNA PCR NOT DETECTED 03/18/20 15:55 Nasal C.pneumoniae (PCR) NOT DETECTED 03/18/20 15:55 Natanael Human Metapneumo PCR NOT DETECTED 03/18/20 15:55 Nasal M.pneumoniae (PCR) NOT DETECTED 03/18/20 15:55 Nasal SARS-CoV-2 (PCR) NOT DETECTED 03/18/20 15:55 Urine Opiates Screen POSITIVE (NEGATIVE) H 03/18/20 16:19 Ur Oxycodone Screen NEGATIVE (NEGATIVE) 03/18/20 16:19 Urine Methadone Screen NEGATIVE (NEGATIVE) 03/18/20 16:19 Ur Propoxyphene Screen NEGATIVE (NEGATIVE) 03/18/20 16:19 Ur Barbiturates Screen NEGATIVE (NEGATIVE) 03/18/20 16:19 Ur Tricyclics Screen NEGATIVE (NEGATIVE) 03/18/20 16:19 Ur Phencyclidine Scrn NEGATIVE (NEGATIVE) 03/18/20 16:19 Ur Amphetamine Screen NEGATIVE (NEGATIVE) 03/18/20 16:19 U Methamphetamines Scrn NEGATIVE (NEGATIVE) 03/18/20 16:19 U Benzodiazepines Scrn POSITIVE (NEGATIVE) H 03/18/20 16:19 Urine Cocaine Screen NEGATIVE (NEGATIVE) 03/18/20 16:19 U Cannabinoids Screen NEGATIVE (NEGATIVE) 03/18/20 16:19 Ethyl Alcohol < 5.0 mg/dL 03/18/20 13:54 - Procedures Procedures: Procedures DRAINAGE OF PERITONEAL CAVITY, PERCUTANEOUS APPROACH (02/15/20)
[2020-03-20] MEDS: LIDOCAINE PATCH 5% TOP PRN (17:32)
[2020-03-20] MEDS ORDERED: ALBUTEROL NEB 2.5 MG/3 ML INH PRN (17:46)
[2020-03-20] MEDS ORDERED: INSULIN GLARGINE 300 UNIT/3 ML PEN SUBQ SCH (21:00)
[2020-03-21] MEDS: FUROSEMIDE 40 MG/4 ML VIAL IVP SCH ×2 (06:20→15:22)
[2020-03-21 07:31] LABS: BASOPHILS # (AUTO) 0.1 10^3/uL (0.0-0.1); BASOPHILS % (AUTO) 1.8 %; EOSINOPHILS # (AUTO) 0.4 10^3/uL (0.0-0.7); EOSINOPHILS % (AUTO) 6.6 %; HGB - HEMOGLOBIN 11.3 g/dL (14.0-18.0); LYMPHOCYTES # (AUTO) 1.6 10^3/uL (1.5-3.5); LYMPHOCYTES % (AUTO) 28.6 %; MEAN CORPUSCULAR HEMOGLOBIN 33.4 pg (27.0-31.0); MEAN CORPUSCULAR HGB CONC 34.1 g/dL (32.0-36.0); MEAN CORPUSCULAR VOLUME 97.9 fL (80.0-94.0); MEAN PLATELET VOLUME 9.8 fL (7.4-11.4); MONOCYTES # (AUTO) 0.9 10^3/uL (0.0-1.0); MONOCYTES % (AUTO) 16.4 %; NEUTROPHILS # (AUTO) 2.5 10^3/uL (1.5-6.6); NEUTROPHILS % (AUTO) 46.4 %; PLT - PLATELET COUNT 129 10^3/uL (130-450); RED BLOOD COUNT 3.38 10^6/uL (4.70-6.10); RED CELL DISTRIBUTION WIDTH 13.4 % (12.0-15.0); WHITE BLOOD COUNT 5.5 x10^3/uL (4.8-10.8)
[2020-03-21 07:39] LABS: CALCIUM 8.1 mg/dL (8.5-10.3); CREATININE 0.9 mg/dL (0.6-1.2)
[2020-03-21] MEDS ORDERED: INSULIN GLARGINE 300 UNIT/3 ML PEN SUBQ SCH ×2 (08:00)
[2020-03-21] MEDS: INSULIN ASPART 300 UNIT/3 ML PEN SUBQ SCH ×4 (08:22→20:18)
[2020-03-21] MEDS: FAMOTIDINE 20 MG TABLET PO SCH ×2 (08:23→20:18)
[2020-03-21] MEDS: THIAMINE 100 MG TABLET PO SCH (08:23)
[2020-03-21] MEDS: PRENATAL VITAMIN TABLET PO SCH (08:23)
[2020-03-21] MEDS: METOPROLOL SUCCINATE 25 MG TABLET PO SCH ×2 (08:24→20:18)
[2020-03-21] MEDS ORDERED: ALBUMIN 25% 12.5 GM/50 ML VIAL IV STA (08:24)
[2020-03-21] MEDS: SODIUM CHLORIDE FLUSH 0.9% 10 ML SYRINGE IVP SCH ×3 (08:25→23:40)
[2020-03-21 08:57] LABS: ALBUMIN 2.1 g/dL (3.2-5.5); ALBUMIN/GLOBULIN RATIO 0.6 (1.0-2.2); BILIRUBIN,TOTAL 2.2 mg/dL (0.2-1.0); CALCIUM 8.1 mg/dL (8.5-10.3); CREATININE 0.9 mg/dL (0.6-1.2); TOTAL PROTEIN 5.7 g/dL (6.7-8.2)
[2020-03-21] MEDS ORDERED: SPIRONOLACTONE 25 MG TABLET PO SCH (09:00)
[2020-03-21] MEDS ORDERED: NICOTINE 14 MG PATCH TOP SCH (12:00)
[2020-03-21 12:44] LABS: INR 1.4 (0.8-1.2)
[2020-03-21] MEDS ORDERED: metOLazone 2.5 MG TABLET PO SCH ×2 (13:00)
--- NOTE | 2020-03-21 13:19 | PROVIDER PROGRESS NOTE ---
Assessment/Plan - Problem List (1) Ascites Assessment/Plan: 03/21 Patient is alert orientated +4. Patient's abdomen did extend again. Patient had paracentesis 2 days ago. We will plan to have another Paracentesis on today by interventional radiologist. Patient had a low albumin, we will give the patient intravenous albumin protein. We will recheck PT and INR. Patient need frequently Paracentesis now. Patient had Meld score 15 With 6% mortality rate in 3-month. Discussed the care plan with patient, patient agree to have palliative care. Consult with palliative care. Patient also report he had GI appointment in April 03, He will discuss with his GI doctor for Possibility of liver transplant. We will continue give pt Lasix, diuretics, Close monitor patient vital signs. 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 pain is improved. (5) Swelling of penis Assessment/Plan: Unchanged. He continues to need her chronic indwelling Blunt. (6) Alcoholic liver disease Assessment/Plan: Patient denies alcohol withdrawal symptoms now. He reported he already stop drinking alcohol. He used to drink a 6-pack or more of beer a day. Continue vitamins and Thiamine orally. (7) Weakness Assessment/Plan: Patient Still present weakness. PT and OT evaluated and treated patient, recommend patient discharged SNF. Consult social work for safely disposition. (8) Hyponatremia Assessment/Plan: Sodium is 134 today, nearly resolved. This is likely hypervolemic hyponatremia. He has already been instituted on a total fluid/day restriction. We will continue Lasix diuretics, Continue I&O Follow BMP daily. (9) Diabetes mellitus, insulin dependent (IDDM), uncontrolled Assessment/Plan: Patient still has over 200 glucose level. We will check A1c, We will increase to 20 units Lantus in the night, continue sliding scale (10) Hx of essential hypertension Assessment/Plan: stable, continue home meds (11) Chronic low back pain Assessment/Plan: continue pain control, continue lidocaine patch topical. - Current Meds Current Meds: Current Medications Generic Name Dose Route Start Last Admin Trade Name Freq PRN Reason Stop Dose Admin Albuterol 2.5 mg 03/20/20 17:46 03/20/20 18:00 Albuterol Neb 2.5 Mg/3 Ml INH 2.5 mg RTQ4H PRN Administration Wheezing Famotidine 20 mg 03/18/20 21:00 03/21/20 08:23 Famotidine 20 Mg Tablet PO 20 mg BID JOY Administration Furosemide 40 mg 03/21/20 06:00 03/21/20 06:20 Furosemide 40 Mg/4 Ml Vial IVP 40 mg BIDDIURETIC JOY Administration Insulin Aspart 3 - 11 unit 03/20/20 17:00 03/21/20 12:16 Insulin Aspart 300 Unit/3 Ml Pen SUBQ 7 unit 0800,1200,1700,2100 JOY Administration Protocol Lidocaine 1 patch 03/20/20 16:54 03/20/20 17:32 Lidocaine Patch 5% TOP 1 patch DAILY PRN Administration PAIN Metoprolol Succinate 25 mg 03/19/20 09:00 03/21/20 08:24 Metoprolol Succinate 25 Mg Tablet PO 25 mg BID JOY Administration Nicotine 1 patch 03/21/20 12:00 03/21/20 12:14 Nicotine 14 Mg Patch TOP Not Given DAILY JOY Multivit/Folic Acid/Iron 1 tab 03/21/20 08:00 03/21/20 08:23 Vitamin Tablet PO 1 tab DAILYWM JOY Administration Sodium Chloride 10 ml 03/18/20 16:09 03/19/20 22:02 Sodium Chloride Flush 0.9% 10 Ml Syringe IVP 20 ml PRN PRN Administration NEEDED PER PROVIDER ORDERS Sodium Chloride 10 ml 03/18/20 17:00 03/21/20 08:25 Sodium Chloride Flush 0.9% 10 Ml Syringe IVP 10 ml 0100,0900,1700 JOY Administration Spironolactone 75 mg 03/21/20 09:00 03/21/20 08:24 Spironolactone 25 Mg Tablet PO 75 mg DAILY JOY Administration Thiamine HCl 100 mg 03/21/20 09:00 03/21/20 08:23 Thiamine 100 Mg Tablet PO 100 mg DAILY JOY Administration - Lab Result Fish Bone Diagrams: 03/21/20 07:14 03/21/20 07:14 - Additional Planning My Orders: My Active Orders 03/21/20 Palliative Care Consult [CONS] Routine Social Work Consult [CONS] Routine COVID-19 REFERENCE TEST Routine 03/21/20 07:14 HEMOGLOBIN A1c% [CHEM] Urgent 03/21/20 09:00 Spironolactone [Aldactone] 75 mg PO DAILY 03/21/20 09:09 Abdominal Paracentesis [US] Stat 03/21/20 21:00 Insulin Glargine [Lantus Solostar] 20 unit SUBQ QPM 03/22/20 05:00 CMP [COMPREHENSIVE METABOLIC PANEL] [CHEM] DAILYLAB 03/23/20 05:00 CMP [COMPREHENSIVE METABOLIC PANEL] [CHEM] DAILYLAB 03/24/20 05:00 CMP [COMPREHENSIVE METABOLIC PANEL] [CHEM] DAILYLAB 03/25/20 05:00 CMP [COMPREHENSIVE METABOLIC PANEL] [CHEM] DAILYLAB 03/26/20 05:00 CMP [COMPREHENSIVE METABOLIC PANEL] [CHEM] DAILYLAB Subjective - Subjective Patient Reports: Feeling Better Objective Vital Signs: Vital Signs - 24 hr 03/20/20 03/20/20 03/20/20 16:13 17:44 18:00 Temperature 37.2 C 37.2 C Heart Rate 100 104 H Heart Rate [ 106 H Brachial] Heart Rate [ Monitoring electrodes] Respiratory 18 18 18 Rate Blood Pressure 115/69 [Right Brachial artery] O2 Saturation 94 97 03/20/20 03/20/20 03/20/20 19:35 19:36 21:05 Temperature Heart Rate Heart Rate [ 89 Brachial] Heart Rate [ Monitoring electrodes] Respiratory 17 Rate Blood Pressure 100/52 L 108/78 104/63 [Right Brachial artery] O2 Saturation 93 03/20/20 03/21/20 03/21/20 22:11 00:30 04:02 Temperature 37.2 C 37.6 C 37 C Heart Rate Heart Rate [ 85 88 96 Brachial] Heart Rate [ Monitoring electrodes] Respiratory 18 18 18 Rate Blood Pressure 112/60 116/55 L 131/74 H [Right Brachial artery] O2 Saturation 95 94 95 03/21/20 03/21/20 03/21/20 07:21 08:20 08:51 Temperature 37.5 C 36.3 C L Heart Rate Heart Rate [ 83 66 85 Brachial] Heart Rate [ 66 Monitoring electrodes] Respiratory 18 16 Rate Blood Pressure 97/63 123/81 H 131/79 H [Right Brachial artery] O2 Saturation 93 100 03/21/20 03/21/20 09:15 11:24 Temperature 37.2 C Heart Rate 79 Heart Rate [ 75 Brachial] Heart Rate [ Monitoring electrodes] Respiratory 20 Rate Blood Pressure 108/52 L [Right Brachial artery] O2 Saturation 93 Oxygen O2 Source Room air I&O (Last 24 Hrs): Intake and Output Totals x24h 03/19/20 03/20/20 03/21/20 23:59 23:59 23:59 Intake Total 1070 2410 1070 Output Total 2525 1460 300 Balance -1455 950 770 General: Alert, Oriented x3, Cooperative, Mild distress HEENT: Atraumatic Neck: Supple Lymphatic: no adenopathy Neuro: Alert, Non Focal, Oriented Times 3 Cardiovascular: Regular rate, Normal S1, Normal S2 Respiratory: Chest non-tender, No respiratory distress Abdomen: Normal bowel sounds, Other (distended abdomen significantly) Genitourinary: Other (scortal edema and swelling penis) Extremities: Normal pulses - Results Results: Laboratory Results WBC 5.5 x10^3/uL (4.8-10.8) 03/21/20 07:14 RBC 3.38 10^6/uL (4.70-6.10) L 03/21/20 07:14 Hgb 11.3 g/dL (14.0-18.0) L 03/21/20 07:14 Hct 33.1 % (42.0-52.0) L 03/21/20 07:14 MCV 97.9 fL (80.0-94.0) H 03/21/20 07:14 MCH 33.4 pg (27.0-31.0) H 03/21/20 07:14 MCHC 34.1 g/dL (32.0-36.0) 03/21/20 07:14 RDW 13.4 % (12.0-15.0) 03/21/20 07:14 Plt Count 129 10^3/uL (130-450) L 03/21/20 07:14 MPV 9.8 fL (7.4-11.4) 03/21/20 07:14 Neut # (Auto) 2.5 10^3/uL (1.5-6.6) 03/21/20 07:14 Lymph # (Auto) 1.6 10^3/uL (1.5-3.5) 03/21/20 07:14 [place] # (Auto) 0.9 10^3/uL (0.0-1.0) 03/21/20 07:14 Eos # (Auto) 0.4 10^3/uL (0.0-0.7) 03/21/20 07:14 Baso # (Auto) 0.1 10^3/uL (0.0-0.1) 03/21/20 07:14 Absolute Nucleated RBC 0.00 x10^3/uL 03/21/20 07:14 Nucleated RBC % 0.0 /100WBC 03/21/20 07:14 PT 15.0 secs (9.9-12.6) H 03/21/20 12:35 INR 1.4 (0.8-1.2) H 03/21/20 12:35 Sodium 134 mmol/L (135-145) L 03/21/20 07:14 Sodium 134 mmol/L (135-145) L 03/21/20 07:14 Potassium 3.6 mmol/L (3.5-5.0) 03/21/20 07:14 Potassium 3.6 mmol/L (3.5-5.0) 03/21/20 07:14 Chloride 101 mmol/L (101-111) 03/21/20 07:14 Chloride 101 mmol/L (101-111) 03/21/20 07:14 Carbon Dioxide 26 mmol/L (21-32) 03/21/20 07:14 Carbon Dioxide 27 mmol/L (21-32) 03/21/20 07:14 Anion Gap 6.0 (6-13) 03/21/20 07:14 Anion Gap 7.0 (6-13) 03/21/20 07:14 BUN 25 mg/dL (6-20) H 03/21/20 07:14 BUN 26 mg/dL (6-20) H 03/21/20 07:14 Creatinine 0.9 mg/dL (0.6-1.2) 03/21/20 07:14 Creatinine 0.9 mg/dL (0.6-1.2) 03/21/20 07:14 Estimated GFR (MDRD) 89 (>89) 03/21/20 07:14 Estimated GFR (MDRD) 89 (>89) 03/21/20 07:14 Glucose 229 mg/dL (70-100) H 03/21/20 07:14 Glucose 230 mg/dL (70-100) H 03/21/20 07:14 POC Whole Bld Glucose 248 mg/dL (70 - 100) H 03/21/20 11:23 Calcium 8.1 mg/dL (8.5-10.3) L 03/21/20 07:14 Calcium 8.1 mg/dL (8.5-10.3) L 03/21/20 07:14 Magnesium 1.7 mg/dL (1.7-2.8) 03/20/20 09:40 Total Bilirubin 2.2 mg/dL (0.2-1.0) H 03/21/20 07:14 AST 34 IU/L (10-42) 03/21/20 07:14 ALT 18 IU/L (10-60) 03/21/20 07:14 Alkaline Phosphatase 60 IU/L (42-121) 03/21/20 07:14 B-Natriuretic Peptide 42 pg/mL (5-100) 03/18/20 13:54 Total Protein 5.7 g/dL (6.7-8.2) L 03/21/20 07:14 Albumin 2.1 g/dL (3.2-5.5) L 03/21/20 07:14 Globulin 3.6 g/dL (2.1-4.2) 03/21/20 07:14 Albumin/Globulin Ratio 0.6 (1.0-2.2) L 03/21/20 07:14 Lipase 74 U/L (22-51) H 03/18/20 13:54 Nasal Adenovirus (PCR) NOT DETECTED 03/18/20 15:55 Nasal B. parapertussis DNA (PCR) NOT DETECTED 03/18/20 15:55 Nasal Coronavir 229E PCR NOT DETECTED 03/18/20 15:55 Nasal Coronavir HKU1 PCR NOT DETECTED 03/18/20 15:55 Nasal Coronavir NL63 PCR NOT DETECTED 03/18/20 15:55 Nasal Coronavir OC43 PCR NOT DETECTED 03/18/20 15:55 Nasal Enterovir/Rhinovir PCR NOT DETECTED 03/18/20 15:55 Nasal Influenza B PCR NOT DETECTED 03/18/20 15:55 Nasal Influenza A PCR NOT DETECTED 03/18/20 15:55 Nasal Parainfluen 1 PCR NOT DETECTED 03/18/20 15:55 Nasal Parainfluen 2 PCR NOT DETECTED 03/18/20 15:55 Nasal Parainfluen 3 PCR NOT DETECTED 03/18/20 15:55 Nasal Parainfluen 4 PCR NOT DETECTED 03/18/20 15:55 Nasal RSV (PCR) NOT DETECTED 03/18/20 15:55 Nasal B.pertussis DNA PCR NOT DETECTED 03/18/20 15:55 Nasal C.pneumoniae (PCR) NOT DETECTED 03/18/20 15:55 Natanael Human Metapneumo PCR NOT DETECTED 03/18/20 15:55 Nasal M.pneumoniae (PCR) NOT DETECTED 03/18/20 15:55 Nasal SARS-CoV-2 (PCR) NOT DETECTED 03/18/20 15:55 Urine Opiates Screen POSITIVE (NEGATIVE) H 03/18/20 16:19 Ur Oxycodone Screen NEGATIVE (NEGATIVE) 03/18/20 16:19 Urine Methadone Screen NEGATIVE (NEGATIVE) 03/18/20 16:19 Ur Propoxyphene Screen NEGATIVE (NEGATIVE) 03/18/20 16:19 Ur Barbiturates Screen NEGATIVE (NEGATIVE) 03/18/20 16:19 Ur Tricyclics Screen NEGATIVE (NEGATIVE) 03/18/20 16:19 Ur Phencyclidine Scrn NEGATIVE (NEGATIVE) 03/18/20 16:19 Ur Amphetamine Screen NEGATIVE (NEGATIVE) 03/18/20 16:19 U Methamphetamines Scrn NEGATIVE (NEGATIVE) 03/18/20 16:19 U Benzodiazepines Scrn POSITIVE (NEGATIVE) H 03/18/20 16:19 Urine Cocaine Screen NEGATIVE (NEGATIVE) 03/18/20 16:19 U Cannabinoids Screen NEGATIVE (NEGATIVE) 03/18/20 16:19 Ethyl Alcohol < 5.0 mg/dL 03/18/20 13:54 - Procedures Procedures: Procedures DRAINAGE OF PERITONEAL CAVITY, PERCUTANEOUS APPROACH (02/15/20) ABX Reporting Has patient been on IV antibiotics over the past 48 hours?: No Current Medications - Current Medications Current Medications: Active Medications Albuterol (Albuterol Neb 2.5 Mg/3 Ml) 2.5 mg INH RTQ4H PRN PRN Reason: Wheezing Last Admin: 03/20/20 18:00 Dose: 2.5 mg Documented by: Famotidine (Famotidine 20 Mg Tablet) 20 mg PO BID JOY Last Admin: 03/21/20 08:23 Dose: 20 mg Documented by: Furosemide (Furosemide 40 Mg/4 Ml Vial) 40 mg IVP BIDDIURETIC [facility] Last Admin: 03/21/20 06:20 Dose: 40 mg Documented by: Insulin Aspart (Insulin Aspart 300 Unit/3 Ml Pen) 3 - 11 unit SUBQ 0800,1200,1700,2100 [facility]; Protocol Last Admin: 03/21/20 12:16 Dose: 7 unit Documented by: Insulin Glargine (Insulin Glargine 300 Unit/3 Ml Pen) 20 unit SUBQ QPM [facility] Lidocaine (Lidocaine Patch 5%) 1 patch TOP DAILY PRN PRN Reason: PAIN Last Admin: 03/20/20 17:32 Dose: 1 patch Documented by: Metolazone (Metolazone 2.5 Mg Tablet) 2.5 mg PO DAILY@1300 [facility] Last Admin: 03/21/20 13:33 Dose: Not Given Documented by: Metoprolol Succinate (Metoprolol Succinate 25 Mg Tablet) 25 mg PO BID [facility] Last Admin: 03/21/20 08:24 Dose: 25 mg Documented by: Nicotine (Nicotine 14 Mg Patch) 1 patch TOP DAILY [facility] Last Admin: 03/21/20 12:14 Dose: Not Given Documented by: Multivit/Folic Acid/Iron ( Vitamin Tablet) 1 tab PO DAILYWM [facility] Last Admin: 03/21/20 08:23 Dose: 1 tab Documented by: Sodium Chloride (Sodium Chloride Flush 0.9% 10 Ml Syringe) 10 ml IVP PRN PRN PRN Reason: NEEDED PER PROVIDER ORDERS Last Admin: 03/19/20 22:02 Dose: 20 ml Documented by: Sodium Chloride (Sodium Chloride Flush 0.9% 10 Ml Syringe) 10 ml IVP 0100,0900,1700 [facility] Last Admin: 03/21/20 08:25 Dose: 10 ml Documented by: Thiamine HCl (Thiamine 100 Mg Tablet) 100 mg PO DAILY [facility] Last Admin: 03/21/20 08:23 Dose: 100 mg Documented by: Atorvastatin [Lipitor] 40 mg PO QPM 08/17/14 Albuterol Sulfate [Proair Hfa Inhaler] 1 - 2 puffs INH Q4H PRN 11/13/16 Aspirin [Adult Low Dose Aspirin EC] 81 mg PO DAILY 11/13/16 Insulin Glargine,Hum.rec.anlog [Basaglar Angyikpen U-100] 65 units SUBQ DAILY PM 11/13/16 Insulin Regular, Human [Humulin R] 15 - 30 units SUBQ TIDWM 11/13/16 Fluticasone Propionate [Flovent Diskus] 1 puffs IH DAILY 02/15/20 Metoprolol Tartrate [Lopressor] 25 mg PO BID 02/15/20 Multivitamin W/Minerals [Theragran M] 1 tab PO DAILY 02/15/20 buPROPion HCL [Bupropion HCl Sr] 150 mg PO BID 02/15/20 Losartan Potassium [Cozaar] 100 mg PO DAILY 03/18/20
[2020-03-21 14:06] LABS: HEMOGLOBIN A1c% 7.1 % (4.27-6.07)
--- NOTE | 2020-03-21 14:57 | CONSULTATION NOTE ---
Palliative Care Consultation - Referral Referring Provider: Humza ALBERT Time of Visit: [id number] Referral setting: Hospitalized patient Referral Reason: Cirrohois of liver/Depression/ETOH abuse - Information Sources Records reviewed: Previous records reviewed History/Review of Systems obtained from: Patient Exam limitations: No limitations - History of Present Illness Brief History of Present Illness: This is a 49-year-old gentleman who has had long-term chronic health issues related to his morbid obesity, diabetes with peripheral neuropathy and retinopathy, chronic depresson, and chronic alcoholism. He also has a history of a 25-year smoking, though is currently not smoking, and gave up his 6+ beers a day cold turkey prior to his hospitalization on 02/15/2020. Patient is somewhat perplexed, as he developed about 6 months ago feeling of overwhelming fatigue, generalized weakness, and developed some lower extremity edema. This did lead to a cardiology referral, and saw Dr. Stephens on 01/21/20 for increasing shortness of breath, but was not found to be cardiac related with a normal ejection fraction at that time. He reports he has been almost bedbound for the last 3 months, and has had significant functional decline. His perception of his experience, as he "blew up", with the development of shortness of breath, ascites, scrotal and severe edema/ascites which led to his hospitalization from . During that hospitalization he was treated for his anasarca, severe ascites with paracentesis, and diagnosed with alcoholic liver disease. He did experience some mild withdrawals, developed urinary obstruction, and was discharged with his Blunt catheter and home health support. Unfortunately due to his significant deconditioning, and recurrent ascites, he was unable to participate in home physical therapy, and continues to decline. They were working on placement from home to custodial, given he had met his qualifying stay with his previous hospitalization. They were waiting on [facility] in [place], as they were considering admit prior to his hospitalization. This led to another acute hospitalization at this time, on 03/18/20, he developed worsening fluid retention again with increased abdominal girth, orthopnea, severe ascites, and anasarca. He is continued with severe scrotal swelling and complaints of pain and bladder spasms. Patient had been referred to gastroenterology, and had a pending consult. He has not had a complete work-up for his /alcoholic liver disease/poss cirrhosis, but unfortunately is continued to need recurrent paracentesis. Of note and 02/20/[address] scan showed normal without any masses, has not had any other imaging except ultrasounds for paracentesis. Palliative care has been asked to meet with patient regarding goals of care and support, patient does present with a Child Gore score of 10 making him a classic C, and a MELD -NA score of 17 which puts him at a 6% mortality for 3 months. Of more concern regarding his prognosis is actually his decline in functional status, recurrent severe ascites and anasarca, and recent weight loss with temporal and upper extremity muscle wasting. Medical/Surgical History - Past Medical History Cardiovascular: reports: Hypertension, High cholesterol Respiratory: reports: Asthma Neuro: Peripheral neuropathy Endocrine/Autoimmune: reports: Type 2 diabetes GI: reports: Cirrhosis : reports: Retention, Indwelling catheter HEENT: reports: Chronic vision loss Psych: reports: Depression, Anxiety Musculoskeletal: reports: Osteoarthritis Derm: reports: Psoriasis, Other (LLE wound/abrasion; venous stasis) MRSA Hx?: No - Past Surgical History Ortho: reports: Arthroscopic surgery - Substance History Use: Uses substance without health or social issues: Tobacco (hx of 25 year smoking), Alcohol (beer; sober since prioir admit) Social History - Living Situation Living arrangement: At home Living Situation: With family Support System: Patient lives with his mother and subsidized housing. 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 She has multiple health problems, they have been living together for 6 years. 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 He is very worried about his mother, and her being on her own. They have gone through [place] [employer] application, it is unclear if she currently has a caregiver. He has 2 brothers, but has been estranged from them. Family History - Family History Family History Comment/Other: He is not aware of his father's whereabouts or if he is still alive nor health history. His mother has severe osteoarthritis. He is unclear if his brothers have health problems. Medications/Allergies - Medications Active Medication List: Active Medications Albuterol (Albuterol Neb 2.5 Mg/3 Ml) 2.5 mg INH RTQ4H PRN PRN Reason: Wheezing Last Admin: 03/20/20 18:00 Dose: 2.5 mg Documented by: Famotidine (Famotidine 20 Mg Tablet) 20 mg PO BID [facility] Last Admin: 03/21/20 08:23 Dose: 20 mg Documented by: Furosemide (Furosemide 40 Mg/4 Ml Vial) 40 mg IVP BIDDIURETIC [facility] Last Admin: 03/21/20 06:20 Dose: 40 mg Documented by: Insulin Aspart (Insulin Aspart 300 Unit/3 Ml Pen) 3 - 11 unit SUBQ 0800,1200,1700,2100 [facility]; Protocol Last Admin: 03/21/20 12:16 Dose: 7 unit Documented by: Insulin Glargine (Insulin Glargine 300 Unit/3 Ml Pen) 20 unit SUBQ QPM [facility] Lidocaine (Lidocaine Patch 5%) 1 patch TOP DAILY PRN PRN Reason: PAIN Last Admin: 03/20/20 17:32 Dose: 1 patch Documented by: Metolazone (Metolazone 2.5 Mg Tablet) 2.5 mg PO DAILY@1300 [facility] Last Admin: 03/21/20 13:33 Dose: Not Given Documented by: Metoprolol Succinate (Metoprolol Succinate 25 Mg Tablet) 25 mg PO BID [facility] Last Admin: 03/21/20 08:24 Dose: 25 mg Documented by: Nicotine (Nicotine 14 Mg Patch) 1 patch TOP DAILY [facility] Last Admin: 03/21/20 12:14 Dose: Not Given Documented by: Oxybutynin Chloride (Oxybutynin 5mg Tablet) 5 mg PO BID [facility] Multivit/Folic Acid/Iron ( Vitamin Tablet) 1 tab PO DAILYWM [facility] Last Admin: 03/21/20 08:23 Dose: 1 tab Documented by: Sodium Chloride (Sodium Chloride Flush 0.9% 10 Ml Syringe) 10 ml IVP PRN PRN PRN Reason: NEEDED PER PROVIDER ORDERS Last Admin: 03/19/20 22:02 Dose: 20 ml Documented by: Sodium Chloride (Sodium Chloride Flush 0.9% 10 Ml Syringe) 10 ml IVP 0100,0900,1700 [facility] Last Admin: 03/21/20 08:25 Dose: 10 ml Documented by: Thiamine HCl (Thiamine 100 Mg Tablet) 100 mg PO DAILY [facility] Last Admin: 03/21/20 08:23 Dose: 100 mg Documented by: Atorvastatin [Lipitor] 40 mg PO QPM 08/17/14 Albuterol Sulfate [Proair Hfa Inhaler] 1 - 2 puffs INH Q4H PRN 11/13/16 Aspirin [Adult Low Dose Aspirin EC] 81 mg PO DAILY 11/13/16 Insulin Glargine,Hum.rec.anlog [Basaglar Kwikpen U-100] 65 units SUBQ DAILY PM 11/13/16 Insulin Regular, Human [Humulin R] 15 - 30 units SUBQ TIDWM 11/13/16 Fluticasone Propionate [Flovent Diskus] 1 puffs IH DAILY 02/15/20 Metoprolol Tartrate [Lopressor] 25 mg PO BID 02/15/20 Multivitamin W/Minerals [Theragran M] 1 tab PO DAILY 02/15/20 buPROPion HCL [Bupropion HCl Sr] 150 mg PO BID 02/15/20 Losartan Potassium [Cozaar] 100 mg PO DAILY 03/18/20 - Allergies Allergies/Adverse Reactions: Allergies Allergy/AdvReac Type Severity Reaction Status Date / Time lisinopril Allergy Unknown Verified 03/18/20 12:08 Review of Systems - Constitutional Constitutional: reports: Fatigue (persistent), Weakness, Poor appetite, Weight loss (296 down to 238). denies: Fever - Eyes Eyes: reports: Vision loss - Ears, Nose & Throat Ears, Nose & Throat: reports: Other (edentulous) - Cardiovascular Cardiovascular: reports: Edema, Lightheadedness, Exertional dyspnea, Decr. exercise tolerance, Orthopnea - Respiratory Respiratory: reports: Orthopnea, SOB at rest, SOB with exertion - Gastrointestinal Gastrointestinal: reports: Abdominal pain, Abdominal distention, Bloating, Poor appetite, Early satiety - Genitourinary Genitourinary: reports: Other (spasms when urine releases; severe pain) - Musculoskeletal Musculoskeletal: reports: Muscle pain, Back pain, Muscle aches, Stiffness, Limited range of motion, Muscle weakness, Joint pain, Assistive devices (able to ambulate short distances;) - Integumentary Integumentary: reports: Rash, Lesions, Dryness, Nail changes - Neurological Neurological: reports: General weakness, Numbness - Psychiatric Psychiatric: reports: Depression, Anxiety. denies: Suicidal - Endocrine Endocrine: reports: Diabetes type 2 (poorly controlled; reports was "noncompliant"; has not been eating for several months) - Hematologic/Lymphatic Hematologic/Lymph: Anemia - All Other Systems All Other Systems: reports: Reviewed and negative Physical Exam - Vital Signs Vital Signs: Vital Signs x48h Temp Pulse Pulse Pulse Resp BP Pulse Ox 03/21/20 11:24 37.2 C 75 20 108/52 L 93 03/21/20 09:15 79 03/21/20 08:51 85 131/79 H 03/21/20 08:20 36.3 C L 66 66 16 123/81 H 100 03/21/20 07:21 37.5 C 83 18 97/63 93 - Physical Exam General Appearance: positive: Alert, Mild distress, Anxious Eyes Bilateral: positive: Normal inspection ENT: positive: No signs of dehydration Neck: positive: Trachea midline Respiratory: negative: No respiratory distress (breathless with conversation) Abdomen: positive: Distended, Taut, Obese Skin: positive: Pallor, Dryness, Wound (left outer leg; dressing intact; trauma wound from scrape), Other (sallow) Extremities: positive: Pedal edema, Other (venuos stasis) Neurologic/Psychiatric: positive: Oriented x3, Weakness, Depressed mood/affect, Flat affect Palliative Care - POLST Patient has POLST: No Pain: Pain worsening, Location (scrotal/urethral spasms) Tiredness/Fatigue: Severe (7-10) Drowsiness/Sedation: Mild (1-3) Nausea: None Anorexia: Moderate (4-6), Weight loss Dyspnea: Severe (7-10) Depression: Severe (7-10) Anxiety: Moderate (4-6) Feelings of wellbeing/Perceived Quality of Life: Poor Sleep: Variable sleep pattern - Palliative Care Discussion: Patient does understand has some level the seriousness of his illness, but is anxious to learn more regarding his underlying diagnosis, he is quite surprised that he has this much damage to his liver just "drinking beer". He does understand if he continues to drink, this most certainly would lead to a quicker demise. But he worries about most is if he dies the impact on his mom, and is worried about her given that he had been her caregiver, in the last several months she has been caring for him. He very much is committed at this point in time to cease drinking, he does not have much for supportive community, and very few financial resources. He had tried AA before, and had been sober for a year. His current goals are to get stronger, be able to take care of himself again, and be able to return home. He is awaiting SNF placement, is looking forward to not feeling so helpless. He does admit to long-term depression, denies suicide intention, but has not been compliant or taking care of himself for many years as far as his health. Discussed the role of palliative care, in the context of following long side his journey with serious illness. The goal would be to hope for the best, with stabilization of his current status. Unfortunately as far as prognosis, will need further input and work-up with gastroenterology, and patient will need to continue to abstain. Introduced advanced care planning, patient is unable to identify anyone other than his mother for DPOA. Given the severity of his illness, will be important to formalize this with a healthcare directive. We wi ll try to get this completed prior to his leaving for SNF. We will introduce further goals of care, in conversation tomorrow. We did initiate conversation though regarding what is acceptable quality of life, patient does not want to be a burden, nor extend suffering, or be dependent. Results - Lab Results Lab results reviewed: Yes Fish Bones: 03/21/20 07:14 03/21/20 07:14 Lab and Imaging Results: Lab Results x24hrs 03/21/20 03/21/20 03/21/20 Range/Units 12:35 11:23 07:20 WBC (4.8-10.8) x10^3/uL RBC (4.70-6.10) 10^6/uL Hgb (14.0-18.0) g/dL Hct (42.0-52.0) % MCV (80.0-94.0) fL MCH (27.0-31.0) pg MCHC (32.0-36.0) g/dL RDW (12.0-15.0) % Plt Count (130-450) 10^3/uL MPV (7.4-11.4) fL Neut # (Auto) (1.5-6.6) 10^3/uL Lymph # (Auto) (1.5-3.5) 10^3/uL Loup # (Auto) (0.0-1.0) 10^3/uL Eos # (Auto) (0.0-0.7) 10^3/uL Baso # (Auto) (0.0-0.1) 10^3/uL Absolute Nucleated RBC x10^3/uL Nucleated RBC % /100WBC PT 15.0 H (9.9-12.6) secs INR 1.4 H (0.8-1.2) Sodium (135-145) mmol/L Potassium (3.5-5.0) mmol/L Chloride (101-111) mmol/L Carbon Dioxide (21-32) mmol/L Anion Gap (6-13) BUN (6-20) mg/dL Creatinine (0.6-1.2) mg/dL Estimated GFR (MDRD) (>89) Glucose (70-100) mg/dL POC Whole Bld Glucose 248 H 236 H (70 - 100) mg/dL Estimat Average Glucose (70-100) mg/dL Hemoglobin A1c % (4.27-6.07) % Calcium (8.5-10.3) mg/dL Total Bilirubin (0.2-1.0) mg/dL AST (10-42) IU/L ALT (10-60) IU/L Alkaline Phosphatase (42-121) IU/L Total Protein (6.7-8.2) g/dL Albumin (3.2-5.5) g/dL Globulin (2.1-4.2) g/dL Albumin/Globulin Ratio (1.0-2.2) 03/21/20 03/21/20 03/21/20 Range/Units 07:14 07:14 07:14 WBC 5.5 (4.8-10.8) x10^3/uL RBC 3.38 L (4.70-6.10) 10^6/uL Hgb 11.3 L (14.0-18.0) g/dL Hct 33.1 L (42.0-52.0) % MCV 97.9 H (80.0-94.0) fL MCH 33.4 H (27.0-31.0) pg MCHC 34.1 (32.0-36.0) g/dL RDW 13.4 (12.0-15.0) % Plt Count 129 L (130-450) 10^3/uL MPV 9.8 (7.4-11.4) fL Neut # (Auto) 2.5 (1.5-6.6) 10^3/uL Lymph # (Auto) 1.6 (1.5-3.5) 10^3/uL Loup # (Auto) 0.9 (0.0-1.0) 10^3/uL Eos # (Auto) 0.4 (0.0-0.7) 10^3/uL Baso # (Auto) 0.1 (0.0-0.1) 10^3/uL Absolute Nucleated RBC 0.00 x10^3/uL Nucleated RBC % 0.0 /100WBC PT (9.9-12.6) secs INR (0.8-1.2) Sodium 134 L (135-145) mmol/L Potassium 3.6 (3.5-5.0) mmol/L Chloride 101 (101-111) mmol/L Carbon Dioxide 26 (21-32) mmol/L Anion Gap 7.0 (6-13) BUN 26 H (6-20) mg/dL Creatinine 0.9 (0.6-1.2) mg/dL Estimated GFR (MDRD) 89 (>89) Glucose 229 H (70-100) mg/dL POC Whole Bld Glucose (70 - 100) mg/dL Estimat Average Glucose 157 H (70-100) mg/dL Hemoglobin A1c % 7.1 H (4.27-6.07) % Calcium 8.1 L (8.5-10.3) mg/dL Total Bilirubin 2.2 H (0.2-1.0) mg/dL AST 34 (10-42) IU/L ALT 18 (10-60) IU/L Alkaline Phosphatase 60 (42-121) IU/L Total Protein 5.7 L (6.7-8.2) g/dL Albumin 2.1 L (3.2-5.5) g/dL Globulin 3.6 (2.1-4.2) g/dL Albumin/Globulin Ratio 0.6 L (1.0-2.2) 03/21/20 03/20/20 03/20/20 Range/Units 07:14 20:40 16:47 WBC (4.8-10.8) x10^3/uL RBC (4.70-6.10) 10^6/uL Hgb (14.0-18.0) g/dL Hct (42.0-52.0) % MCV (80.0-94.0) fL MCH (27.0-31.0) pg MCHC (32.0-36.0) g/dL RDW (12.0-15.0) % Plt Count (130-450) 10^3/uL MPV (7.4-11.4) fL Neut # (Auto) (1.5-6.6) 10^3/uL Lymph # (Auto) (1.5-3.5) 10^3/uL Loup # (Auto) (0.0-1.0) 10^3/uL Eos # (Auto) (0.0-0.7) 10^3/uL Baso # (Auto) (0.0-0.1) 10^3/uL Absolute Nucleated RBC x10^3/uL Nucleated RBC % /100WBC PT (9.9-12.6) secs INR (0.8-1.2) Sodium 134 L (135-145) mmol/L Potassium 3.6 (3.5-5.0) mmol/L Chloride 101 (101-111) mmol/L Carbon Dioxide 27 (21-32) mmol/L Anion Gap 6.0 (6-13) BUN 25 H (6-20) mg/dL Creatinine 0.9 (0.6-1.2) mg/dL Estimated GFR (MDRD) 89 (>89) Glucose 230 H (70-100) mg/dL POC Whole Bld Glucose 314 H 300 H (70 - 100) mg/dL Estimat Average Glucose (70-100) mg/dL Hemoglobin A1c % (4.27-6.07) % Calcium 8.1 L (8.5-10.3) mg/dL Total Bilirubin (0.2-1.0) mg/dL AST (10-42) IU/L ALT (10-60) IU/L Alkaline Phosphatase (42-121) IU/L Total Protein (6.7-8.2) g/dL Albumin (3.2-5.5) g/dL Globulin (2.1-4.2) g/dL Albumin/Globulin Ratio (1.0-2.2) Impression and Recommendations - Palliative Care Impression: This is a 49-year-old gentleman who presents with worsening symptoms of anasarca, recurrent ascites, severe scrotal enlargement and swelling, and worsening functional decline. Patient has chronic indwelling Blunt related to retention, insulin-dependent diabetes, and morbid obesity. He is currently awaiting work-up from gastroenterology related to his alcoholic liver disease, and has been admitted acutely related to failure to thrive in his home setting. Patient presents with high symptom burden, and is awaiting SNF placement for rehab. Palliative care meeting with patient regarding goals of care. Recommendations/Counseling Done: 1. Alcohol abuse. Patient currently abstaining from drinking, greater than 1 month. Positive reinforcement given. Counseling provided regarding severity of his illness in the context of recurrent alcohol abuse. Encouraged on discharge, to follow-up with AA and find community support. Patient would most likely benefit from outpatient treatment program, and monitoring. 2. Anasarca. Patient with symptoms attributed to most likely alcoholic liver disease. Patient pending gastroenterology work-up. Patient with moderate meld score of 16, and Adeola Gore class C. Patient has had though fairly rapid functional decline, as well as to acute hospitalizations within a month of each other. Patient feeling overwhelmed and concerned about his declining health, patient's goals are to get stronger and focus on wellness. 3. Depression. Patient with longstanding depression, most likely exacerbated by alcoholism. Patient would benefit from revisiting choice of antidepressants after stabilized. Patient with poor social support, history of noncompliance, and multiple comorbidities. Would recommend further follow-up for mental health services when returns home. 4. Advanced care planning. 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 Will defer to social work to arrange for notarized Tatian and completion of form. Will revisit goals of care tomorrow, and follow-up on POLST in the context of patient's goals. Introduced the role of palliative care, initiated conversation regarding support for serious illness, and continued need for compliance with work-up and follow-up on outpatient basis after discharge. Time Spent: 60 minutes with greater than 50% of this done in counseling regarding goals of care, anticipatory guidance, and coordination with hospital team.
--- NOTE | 2020-03-21 16:24 | Ultrasound Report ---
PROCEDURE: Abdomen Limited INDICATIONS: ASCITES, EVAL FOR PARACENTESIS TECHNIQUE: Real-time focused scanning was performed of the abdomen, with image documentation. COMPARISON: 03/19/2020 FINDINGS: There is moderate volume ascites, lower in volume when compared with the 03/19/2020 examinat ion. IMPRESSION: Moderate volume ascites, less when compared with 03/19/2020 exam. Reviewed by: Hank Busch MD on 03/21/2020 4:22 PM PST Approved by: Hank Busch MD on 03/21/2020 4:22 PM PST Station ID: [id number]
[2020-03-21] MEDS: LIDOCAINE PATCH 5% TOP PRN (17:04)
[2020-03-21] MEDS: OXYBUTYNIN 5MG TABLET PO SCH (20:18)
[2020-03-21] MEDS: INSULIN GLARGINE 300 UNIT/3 ML PEN SUBQ SCH (20:19)
[2020-03-22] MEDS: FUROSEMIDE 40 MG/4 ML VIAL IVP SCH (05:29)
[2020-03-22 06:37] LABS: BASOPHILS # (AUTO) 0.1 10^3/uL (0.0-0.1); BASOPHILS % (AUTO) 1.8 %; EOSINOPHILS # (AUTO) 0.4 10^3/uL (0.0-0.7); EOSINOPHILS % (AUTO) 7.3 %; HGB - HEMOGLOBIN 11.6 g/dL (14.0-18.0); LYMPHOCYTES # (AUTO) 1.4 10^3/uL (1.5-3.5); LYMPHOCYTES % (AUTO) 28.2 %; MEAN CORPUSCULAR HEMOGLOBIN 33.8 pg (27.0-31.0); MEAN CORPUSCULAR HGB CONC 34.8 g/dL (32.0-36.0); MEAN CORPUSCULAR VOLUME 97.1 fL (80.0-94.0); MEAN PLATELET VOLUME 9.8 fL (7.4-11.4); MONOCYTES # (AUTO) 0.8 10^3/uL (0.0-1.0); MONOCYTES % (AUTO) 16.5 %; NEUTROPHILS # (AUTO) 2.4 10^3/uL (1.5-6.6); PLT - PLATELET COUNT 131 10^3/uL (130-450); RED BLOOD COUNT 3.43 10^6/uL (4.70-6.10); RED CELL DISTRIBUTION WIDTH 13.4 % (12.0-15.0); WHITE BLOOD COUNT 5.1 x10^3/uL (4.8-10.8)
[2020-03-22 06:44] LABS: ALBUMIN 2.4 g/dL (3.2-5.5); ALBUMIN/GLOBULIN RATIO 0.6 (1.0-2.2); BILIRUBIN,TOTAL 2.2 mg/dL (0.2-1.0); CALCIUM 8.6 mg/dL (8.5-10.3); CREATININE 1.1 mg/dL (0.6-1.2); TOTAL PROTEIN 6.2 g/dL (6.7-8.2)
[2020-03-22] MEDS: INSULIN ASPART 300 UNIT/3 ML PEN SUBQ SCH ×7 (07:57→21:16)
[2020-03-22] MEDS: THIAMINE 100 MG TABLET PO SCH (07:58)
[2020-03-22] MEDS: MULTIVITAMIN W/MINERALS TABLET PO SCH (07:58)
[2020-03-22] MEDS: PRENATAL VITAMIN TABLET PO SCH (07:58)
[2020-03-22] MEDS: buPROPion SR 150 MG TABLET PO SCH ×2 (07:59→21:16)
[2020-03-22] MEDS: OXYBUTYNIN 5MG TABLET PO SCH ×2 (07:59→21:16)
[2020-03-22] MEDS: FUROSEMIDE 40 MG TABLET PO SCH (07:59)
[2020-03-22] MEDS: METOPROLOL SUCCINATE 25 MG TABLET PO SCH ×2 (07:59→21:16)
[2020-03-22] MEDS: FAMOTIDINE 20 MG TABLET PO SCH ×2 (07:59→21:16)
[2020-03-22] MEDS: SODIUM CHLORIDE FLUSH 0.9% 10 ML SYRINGE IVP SCH ×2 (08:00→17:20)
[2020-03-22] MEDS: SPIRONOLACTONE 25 MG TABLET PO SCH ×2 (08:03→21:16)
[2020-03-22] MEDS ORDERED: IOVERSOL 320 50 ML VIAL ONE (09:12)
[2020-03-22] MEDS ORDERED: IOVERSOL 320 100 ML VIAL IVP ONE ×2 (09:12→16:14)
[2020-03-22] MEDS ORDERED: ALBUMIN 25% 12.5 GM/50 ML VIAL IV STA (11:14)
--- NOTE | 2020-03-22 11:23 | PROVIDER PROGRESS NOTE ---
Assessment/Plan - Problem List (1) Ascites Assessment/Plan: 03/22 Patient had medium size of Ascites, Patient does not need urgently for paracentesis now. Discussed with patient, he understand the benefit and the risk of Paracentesis. Patient is also pending on replacement, Continue to consult with social work. at this point we do not know what the time case management social worker could find a SNF for patient yet. We will continue monitor patient, we might have paracentesis for Patient before patient be discharged to the SNF. 03/21 Patient is alert orientated +4. Patient's abdomen did extend again. Patient had paracentesis 2 days ago. We will plan to have another Paracentesis on today by interventional radiologist. Patient had a low albumin, we will give the patient intravenous albumin protein. We will recheck PT and INR. Patient need frequently Paracentesis now. Patient had Meld score 15 With 6% mortality rate in 3-month. Discussed the care plan with patient, patient agree to have palliative care. Consult with palliative care. Patient also report he had GI appointment in April 03, He will discuss with his GI doctor for Possibility of liver transplant. We will continue give pt Lasix, diuretics, Close monitor patient vital signs. (2) Tachycardia Assessment/Plan: resolved (3) Anasarca Assessment/Plan: 03/22 stable and improved slight, However patient also show mild to moderate dehydration. will continue Home medication: Lasix, continue home spironolactone, Hold intravenous Lasix and diuretic metolazone. (4) Scrotal edema Assessment/Plan: stable and slight improved. pain is improved. (5) Swelling of penis Assessment/Plan: 03/22 slight improved. He continues to need her chronic indwelling Blunt, add oxybutynin for her spasm and pain (6) Alcoholic liver disease Assessment/Plan: Patient denies alcohol withdrawal symptoms now. He reported he already stop drinking alcohol. He used to drink a 6-pack or more of beer a day. Continue vitamins and Thiamine orally. Advised patient follow-up with his GI appointment For further management his medication issue. (7) Weakness Assessment/Plan: Patient Still present weakness. PT and OT evaluated and treated patient, recommend patient discharged SNF. Consult social work for safely disposition. (8) Hyponatremia Assessment/Plan: Sodium is 134 today, nearly resolved. This is likely hypervolemic hyponatremia. He has already been instituted on a total fluid/day restriction. We will continue Lasix diuretics, Continue I&O Follow BMP daily. (9) Diabetes mellitus, insulin dependent (IDDM), uncontrolled Assessment/Plan: 03/22 Patient still has over 200 glucose level. We will check A1c, We will increase to 20 units Lantus in the night, continue sliding scale, And Novolog 5 units 3 times daily before the meal (10) Hx of essential hypertension Assessment/Plan: stable, continue home meds (11) Chronic low back pain Assessment/Plan: continue pain control, continue lidocaine patch topical. His current goals are to get stronger, be able to take care of himself again, and be able to return home. He is awaiting SNF placement, (12) chronic urinary Blunt catheter Patient has urinary retention plus swelling of the penis, Continue Blunt catheter, Continue catheter care (13) functional decline Patient present recently function significantly declined, Plus anasarca, significant edema, with ascites, Patient now need paracentesis. Consult with palliative care, advised patient follow-up palliative care (14)Dehydration 03/22 20Today patient present clinically some dehydration, creatine and BUN had slightly elevated. We will hold intravenous Lasix and diuretics, resume home oral Lasix and splironolactone, Removal of fluids restriction. 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 - Current Meds Current Meds: Current Medications Generic Name Dose Route Start Last Admin Trade Name Freq PRN Reason Stop Dose Admin Albuterol 2.5 mg 03/20/20 17:46 03/20/20 18:00 Albuterol Neb 2.5 Mg/3 Ml INH 2.5 mg RTQ4H PRN Administration Wheezing Bupropion HCl 150 mg 03/22/20 09:00 03/22/20 07:59 Bupropion Sr 150 Mg Tablet PO 150 mg BID JOY Administration Famotidine 20 mg 03/18/20 21:00 03/22/20 07:59 Famotidine 20 Mg Tablet PO 20 mg BID JOY Administration Furosemide 40 mg 03/22/20 09:00 03/22/20 07:59 Furosemide 40 Mg Tablet PO 40 mg DAILY JOY Administration Insulin Aspart 3 - 11 unit 03/20/20 17:00 03/22/20 07:57 Insulin Aspart 300 Unit/3 Ml Pen SUBQ 9 unit 0800,1200,1700,2100 JOY Administration Protocol Insulin Aspart 5 unit 03/22/20 08:00 03/22/20 07:57 Insulin Aspart 300 Unit/3 Ml Pen SUBQ 5 unit TIDWM JOY Administration Protocol Insulin Glargine 20 unit 03/21/20 21:00 03/21/20 20:19 Insulin Glargine 300 Unit/3 Ml Pen SUBQ 20 unit QPM JOY Administration Lidocaine 1 patch 03/20/20 16:54 03/21/20 17:04 Lidocaine Patch 5% TOP 1 patch DAILY PRN Administration PAIN Metolazone 2.5 mg 03/21/20 13:00 03/21/20 13:33 Metolazone 2.5 Mg Tablet PO Not Given DAILY@1300 [facility] Metoprolol Succinate 25 mg 03/19/20 09:00 03/22/20 07:59 Metoprolol Succinate 25 Mg Tablet PO 25 mg BID JOY Administration Multivitamins/Minerals 1 tab 03/22/20 09:00 03/22/20 07:58 Multivitamin W/Minerals Tablet PO 1 tab DAILY JOY Administration Oxybutynin Chloride 5 mg 03/21/20 21:00 03/22/20 07:59 Oxybutynin 5mg Tablet PO 5 mg BID JOY Administration Multivit/Folic Acid/Iron 1 tab 03/21/20 08:00 03/22/20 07:58 Vitamin Tablet PO 1 tab DAILYWM JOY Administration Sodium Chloride 10 ml 03/18/20 16:09 03/19/20 22:02 Sodium Chloride Flush 0.9% 10 Ml Syringe IVP 20 ml PRN PRN Administration NEEDED PER PROVIDER ORDERS Sodium Chloride 10 ml 03/18/20 17:00 03/22/20 08:00 Sodium Chloride Flush 0.9% 10 Ml Syringe IVP 10 ml 0100,0900,1700 JOY Administration Spironolactone 75 mg 03/22/20 09:00 03/22/20 08:03 Spironolactone 25 Mg Tablet PO 75 mg BID JOY Administration Thiamine HCl 100 mg 03/21/20 09:00 03/22/20 07:58 Thiamine 100 Mg Tablet PO 100 mg DAILY JOY Administration - Lab Result Fish Bone Diagrams: 03/22/20 05:55 03/22/20 05:55 - Additional Planning My Orders: My Active Orders 03/21/20 15:05 COVID-19 REFERENCE TEST Routine 03/21/20 21:00 Insulin Glargine [Lantus Solostar] 20 unit SUBQ QPM Oxybutynin [Ditropan] 5 mg PO BID 03/22/20 08:00 Insulin Aspart [NovoLOG] 5 unit SUBQ TIDWM 03/22/20 08:42 ABDOMEN/PELVIS W [CT] Routine 03/22/20 09:00 Furosemide [Lasix] 40 mg PO DAILY Multivitamin W/Minerals [Theragran M] 1 tab PO DAILY Spironolactone [Aldactone] 75 mg PO BID buPROPion [Wellbutrin Sr] 150 mg PO BID 03/22/20 11:14 Albumin 25% @ 50 mls/hr x 1 Albumin 25% [Albuminar-25] 12.5 gm in 50 ml IV ONCE 03/23/20 05:00 CMP [COMPREHENSIVE METABOLIC PANEL] [CHEM] DAILYLAB 03/24/20 05:00 CMP [COMPREHENSIVE METABOLIC PANEL] [CHEM] DAILYLAB 03/25/20 05:00 CMP [COMPREHENSIVE METABOLIC PANEL] [CHEM] DAILYLAB 03/26/20 05:00 CMP [COMPREHENSIVE METABOLIC PANEL] [CHEM] DAILYLAB Subjective - Subjective Patient Reports: Fatigue Objective Vital Signs: Vital Signs - 24 hr 03/21/20 03/21/20 03/21/20 11:24 15:00 15:20 Temperature 37.2 C Heart Rate 79 Heart Rate [ 75 79 Brachial] Respiratory 20 18 Rate Blood Pressure 108/52 L 115/67 [Right Brachial artery] O2 Saturation 93 03/21/20 03/21/20 03/21/20 15:55 20:10 23:40 Temperature 37.0 C 36.9 C 36.5 C Heart Rate Heart Rate [ 79 85 82 Brachial] Respiratory 20 24 20 Rate Blood Pressure 109/66 112/58 L 113/67 [Right Brachial artery] O2 Saturation 97 96 96 03/22/20 03/22/20 03/22/20 05:30 08:26 09:33 Temperature 37.0 C 36.9 C Heart Rate 85 Heart Rate [ 80 85 Brachial] Respiratory 16 18 16 Rate Blood Pressure 123/70 115/71 [Right Brachial artery] O2 Saturation 98 94 Oxygen O2 Source Room air I&O (Last 24 Hrs): Intake and Output Totals x24h 01/04/21 01/05/21 01/06/21 23:59 23:59 23:59 Intake Total 2410 1970 540 Output Total 1460 1025 900 Balance 950 945 -360 General: Alert, Oriented x3, Cooperative, No acute distress HEENT: Atraumatic Neck: Supple Lymphatic: no adenopathy Neuro: Alert, Non Focal, Oriented Times 3 Cardiovascular: Regular rate, Normal S1, Normal S2 Respiratory: Chest non-tender, No respiratory distress Abdomen: Normal bowel sounds, No tenderness Genitourinary: Other (scrotal edema) Extremities: Normal pulses - Results Results: Laboratory Results WBC 5.1 x10^3/uL (4.8-10.8) 03/22/20 05:55 RBC 3.43 10^6/uL (4.70-6.10) L 03/22/20 05:55 Hgb 11.6 g/dL (14.0-18.0) L 03/22/20 05:55 Hct 33.3 % (42.0-52.0) L 03/22/20 05:55 MCV 97.1 fL (80.0-94.0) H 03/22/20 05:55 MCH 33.8 pg (27.0-31.0) H 03/22/20 05:55 MCHC 34.8 g/dL (32.0-36.0) 03/22/20 05:55 RDW 13.4 % (12.0-15.0) 03/22/20 05:55 Plt Count 131 10^3/uL (130-450) 03/22/20 05:55 MPV 9.8 fL (7.4-11.4) 03/22/20 05:55 Neut # (Auto) 2.4 10^3/uL (1.5-6.6) 03/22/20 05:55 Lymph # (Auto) 1.4 10^3/uL (1.5-3.5) L 03/22/20 05:55 Weber # (Auto) 0.8 10^3/uL (0.0-1.0) 03/22/20 05:55 Eos # (Auto) 0.4 10^3/uL (0.0-0.7) 03/22/20 05:55 Baso # (Auto) 0.1 10^3/uL (0.0-0.1) 03/22/20 05:55 Absolute Nucleated RBC 0.00 x10^3/uL 03/22/20 05:55 Nucleated RBC % 0.0 /100WBC 03/22/20 05:55 PT 15.0 secs (9.9-12.6) H 03/21/20 12:35 INR 1.4 (0.8-1.2) H 03/21/20 12:35 Sodium 134 mmol/L (135-145) L 03/22/20 05:55 Potassium 3.7 mmol/L (3.5-5.0) 03/22/20 05:55 Chloride 101 mmol/L (101-111) 03/22/20 05:55 Carbon Dioxide 27 mmol/L (21-32) 03/22/20 05:55 Anion Gap 6.0 (6-13) 03/22/20 05:55 BUN 31 mg/dL (6-20) H 03/22/20 05:55 Creatinine 1.1 mg/dL (0.6-1.2) 03/22/20 05:55 Estimated GFR (MDRD) 71 (>89) L 03/22/20 05:55 Glucose 294 mg/dL (70-100) H 03/22/20 05:55 POC Whole Bld Glucose 286 mg/dL (70 - 100) H 03/22/20 07:42 Estimat Average Glucose 157 mg/dL (70-100) H 03/21/20 07:14 Hemoglobin A1c % 7.1 % (4.27-6.07) H 03/21/20 07:14 Calcium 8.6 mg/dL (8.5-10.3) 03/22/20 05:55 Magnesium 1.7 mg/dL (1.7-2.8) 03/20/20 09:40 Total Bilirubin 2.2 mg/dL (0.2-1.0) H 03/22/20 05:55 AST 38 IU/L (10-42) 03/22/20 05:55 ALT 19 IU/L (10-60) 03/22/20 05:55 Alkaline Phosphatase 70 IU/L (42-121) 03/22/20 05:55 B-Natriuretic Peptide 42 pg/mL (5-100) 03/18/20 13:54 Total Protein 6.2 g/dL (6.7-8.2) L 03/22/20 05:55 Albumin 2.4 g/dL (3.2-5.5) L 03/22/20 05:55 Globulin 3.8 g/dL (2.1-4.2) 03/22/20 05:55 Albumin/Globulin Ratio 0.6 (1.0-2.2) L 03/22/20 05:55 Lipase 74 U/L (22-51) H 03/18/20 13:54 Nasal Adenovirus (PCR) NOT DETECTED 03/18/20 15:55 Nasal B. parapertussis DNA (PCR) NOT DETECTED 03/18/20 15:55 Nasal Coronavir 229E PCR NOT DETECTED 03/18/20 15:55 Nasal Coronavir HKU1 PCR NOT DETECTED 03/18/20 15:55 Nasal Coronavir NL63 PCR NOT DETECTED 03/18/20 15:55 Nasal Coronavir OC43 PCR NOT DETECTED 03/18/20 15:55 Nasal Enterovir/Rhinovir PCR NOT DETECTED 03/18/20 15:55 Nasal Influenza B PCR NOT DETECTED 03/18/20 15:55 Nasal Influenza A PCR NOT DETECTED 03/18/20 15:55 Nasal Parainfluen 1 PCR NOT DETECTED 03/18/20 15:55 Nasal Parainfluen 2 PCR NOT DETECTED 03/18/20 15:55 Nasal Parainfluen 3 PCR NOT DETECTED 03/18/20 15:55 Nasal Parainfluen 4 PCR NOT DETECTED 03/18/20 15:55 Nasal RSV (PCR) NOT DETECTED 03/18/20 15:55 Nasal B.pertussis DNA PCR NOT DETECTED 03/18/20 15:55 Nasal C.pneumoniae (PCR) NOT DETECTED 03/18/20 15:55 Natanael Human Metapneumo PCR NOT DETECTED 03/18/20 15:55 Nasal M.pneumoniae (PCR) NOT DETECTED 03/18/20 15:55 Nasal SARS-CoV-2 (PCR) NOT DETECTED 03/18/20 15:55 Urine Opiates Screen POSITIVE (NEGATIVE) H 03/18/20 16:19 Ur Oxycodone Screen NEGATIVE (NEGATIVE) 03/18/20 16:19 Urine Methadone Screen NEGATIVE (NEGATIVE) 03/18/20 16:19 Ur Propoxyphene Screen NEGATIVE (NEGATIVE) 03/18/20 16:19 Ur Barbiturates Screen NEGATIVE (NEGATIVE) 03/18/20 16:19 Ur Tricyclics Screen NEGATIVE (NEGATIVE) 03/18/20 16:19 Ur Phencyclidine Scrn NEGATIVE (NEGATIVE) 03/18/20 16:19 Ur Amphetamine Screen NEGATIVE (NEGATIVE) 03/18/20 16:19 U Methamphetamines Scrn NEGATIVE (NEGATIVE) 03/18/20 16:19 U Benzodiazepines Scrn POSITIVE (NEGATIVE) H 03/18/20 16:19 Urine Cocaine Screen NEGATIVE (NEGATIVE) 03/18/20 16:19 U Cannabinoids Screen NEGATIVE (NEGATIVE) 03/18/20 16:19 Ethyl Alcohol < 5.0 mg/dL 03/18/20 13:54 - Procedures Procedures: Procedures DRAINAGE OF PERITONEAL CAVITY, PERCUTANEOUS APPROACH (02/15/20) ABX Reporting Has patient been on IV antibiotics over the past 48 hours?: No Current Medications - Current Medications Current Medications: Active Medications Albuterol (Albuterol Neb 2.5 Mg/3 Ml) 2.5 mg INH RTQ4H PRN PRN Reason: Wheezing Last Admin: 03/20/20 18:00 Dose: 2.5 mg Documented by: Bupropion HCl (Bupropion Sr 150 Mg Tablet) 150 mg PO BID [facility] Last Admin: 03/22/20 07:59 Dose: 150 mg Documented by: Famotidine (Famotidine 20 Mg Tablet) 20 mg PO BID [facility] Last Admin: 03/22/20 07:59 Dose: 20 mg Documented by: Furosemide (Furosemide 40 Mg Tablet) 40 mg PO DAILY [facility] Last Admin: 03/22/20 07:59 Dose: 40 mg Documented by: Albumin Human (Albuminar-25) 12.5 gm in 50 mls @ 50 mls/hr IV ONCE STA Stop: 03/22/20 12:13 Insulin Aspart (Insulin Aspart 300 Unit/3 Ml Pen) 3 - 11 unit SUBQ 0800,1200,1700,2100 [facility]; Protocol Last Admin: 03/22/20 07:57 Dose: 9 unit Documented by: Insulin Aspart (Insulin Aspart 300 Unit/3 Ml Pen) 5 unit SUBQ TIDWM [facility]; Protocol Last Admin: 03/22/20 07:57 Dose: 5 unit Documented by: Insulin Glargine (Insulin Glargine 300 Unit/3 Ml Pen) 20 unit SUBQ QPM [facility] Last Admin: 03/21/20 20:19 Dose: 20 unit Documented by: Lidocaine (Lidocaine Patch 5%) 1 patch TOP DAILY PRN PRN Reason: PAIN Last Admin: 03/21/20 17:04 Dose: 1 patch Documented by: Metoprolol Succinate (Metoprolol Succinate 25 Mg Tablet) 25 mg PO BID [facility] Last Admin: 03/22/20 07:59 Dose: 25 mg Documented by: Multivitamins/Minerals (Multivitamin W/Minerals Tablet) 1 tab PO DAILY [facility] Last Admin: 03/22/20 07:58 Dose: 1 tab Documented by: Oxybutynin Chloride (Oxybutynin 5mg Tablet) 5 mg PO BID [facility] Last Admin: 03/22/20 07:59 Dose: 5 mg Documented by: Multivit/Folic Acid/Iron ( Vitamin Tablet) 1 tab PO DAILYWM [facility] Last Admin: 03/22/20 07:58 Dose: 1 tab Documented by: Sodium Chloride (Sodium Chloride Flush 0.9% 10 Ml Syringe) 10 ml IVP PRN PRN PRN Reason: NEEDED PER PROVIDER ORDERS Last Admin: 03/19/20 22:02 Dose: 20 ml Documented by: Sodium Chloride (Sodium Chloride Flush 0.9% 10 Ml Syringe) 10 ml IVP 0100,0900,1700 [facility] Last Admin: 03/22/20 08:00 Dose: 10 ml Documented by: Spironolactone (Spironolactone 25 Mg Tablet) 75 mg PO BID [facility] Last Admin: 03/22/20 08:03 Dose: 75 mg Documented by: Thiamine HCl (Thiamine 100 Mg Tablet) 100 mg PO DAILY [facility] Last Admin: 03/22/20 07:58 Dose: 100 mg Documented by: Atorvastatin [Lipitor] 40 mg PO QPM 08/17/14 Albuterol Sulfate [Proair Hfa Inhaler] 1 - 2 puffs INH Q4H PRN 11/13/16 Aspirin [Adult Low Dose Aspirin EC] 81 mg PO DAILY 11/13/16 Insulin Glargine,Hum.rec.anlog [Basaglar Kwikpen U-100] 65 units SUBQ DAILY PM 11/13/16 Insulin Regular, Human [Humulin R] 15 - 30 units SUBQ TIDWM 11/13/16 Fluticasone Propionate [Flovent Diskus] 1 puffs IH DAILY 02/15/20 Metoprolol Tartrate [Lopressor] 25 mg PO BID 02/15/20 Multivitamin W/Minerals [Theragran M] 1 tab PO DAILY 02/15/20 buPROPion HCL [Bupropion HCl Sr] 150 mg PO BID 02/15/20 Losartan Potassium [Cozaar] 100 mg PO DAILY 03/18/20
--- NOTE | 2020-03-22 11:41 | CT Report ---
PROCEDURE: Abdomen/Pelvis W INDICATIONS: new onset abdominal pain/discomfort CONTRAST: IV CONTRAST: Optiray 320 ml: 100 PO CONTRAST: Optiray 320 ml50 TECHNIQUE: After the administration of oral and intravenous contrast, 5 mm thick sections acquired from the diap hragms to the symphysis. 5 mm thick coronal and sagittal reformats were acquired. For radiation dos e reduction, the following was used: automated exposure control, adjustment of mA and/or kV accordin g to patient size. COMPARISON: CT pelvis dated 02/15/2020. FINDINGS: Image quality: Excellent. ABDOMEN: Lung bases: Focal right basilar atelectasis. Heart size is normal. Mild coronary artery calcification s. Solid organs: Cirrhotic appearance of the liver. Indeterminate hypodense lesion in the segment 7 righ t lobe of the liver measuring 2.6 cm. Gallbladder contains multiple gallstones. There is mild gallbla dder wall thickening which is nonspecific in the setting of liver dysfunction and ascites. The spleen is not enlarged. Inferior to the spleen is an indeterminate density which may represent splenosis, m easuring 2.8 cm, on image 56/3 and image 55/10. Biliary system is non dilated. Pancreas enhances nor uzair. No adrenal nodules. Kidneys demonstrate normal size and enhancement, without hydronephrosis. Peritoneum and bowel: Bowel loops demonstrate normal wall thickness and caliber. Marked ascites. Nodes and vessels: No retroperitoneal or mesenteric adenopathy by size criteria. Aorta and inferior vena cava are normal in size. Miscellaneous: No ventral hernias. Anasarca. PELVIS: Genitourinary: A Blunt catheter decompresses the bladder. Miscellaneous: No inguinal hernias or adenopathy. Bones: No suspicious bony lesions. No vertebral body compression fractures. Large peripherally german cified right paracentral disc protrusion at L5-S1 significantly impinges on the right side of the the german sac. This was present on the prior study. IMPRESSION: 1. Cirrhosis, marked ascites. 2. Indeterminate 2.6 cm right lobe liver lesion. Recommend further evaluation with multiphase MRI. 3. A 2.8 cm lesion inferior to the spleen may represent splenosis. 4. Focal right basilar atelectasis. 5. Cholelithiasis. 6. Anasarca. 7. Large peripherally calcified right paracentral disc protrusion at L5-S1. Reviewed by: Maikol Cowart MD on 03/22/2020 11:40 AM PST Approved by: Maikol Cowart MD on 03/22/2020 11:40 AM PST Station ID: [id number]
[2020-03-22] MEDS ORDERED: IOVERSOL 320 50 ML VIAL PO ONE (16:12)
--- NOTE | 2020-03-22 17:56 | CONSULTATION NOTE ---
Palliative Care Follow Up - Referral Referring Provider: Humza Chavez Time of Visit: [id number] Referral setting: Hospitalized patient Referral Reason: Goals of Care/Cirrhosis - Information Sources Records reviewed: Previous records reviewed History/Review of Systems obtained from: Patient Exam limitations: No limitations - History of Present Illness Update Brief HPI Update: Please see note 1 for HPI. Patient seen today for further discussion regarding goals of care. Patient is quite frustrated as far as awaiting placement, concern for paracentesis, and still feeling somewhat poorly. He is reporting some improvement with less severe fatigue, but remains quite deconditioned, needing assistance with transfers, and awaiting shower at time of visit. Patient does report continues with intermittent bladder spasms, though improved overall. He reports he did have a good night sleep last night, his appetite he is still trying to eat to improve his strength. He has been participating in therapy, is hopeful for SNF placement, and continued improvement. At time of visit, was awaiting outcome of CT scan, as patient still does not have a definitive diagnosis regarding his liver disease. He remains quite tearful, had spent some time filling out his honoring choices DPOA, time spent discussing both short-term and long-term planning and resources. Past Medical History: Hypertension, high cholesterol, asthma, peripheral neuropathy, retinopathy, type 2 diabetes insulin-dependent, urinary retention, chronic vision loss, depression, osteoarthritis, anxiety, venous stasis, left lower extremity wound/abrasion Social History - Living Situation Living arrangement: At home Living Situation: With family Support System: Patient lives with his mother and subsidized housing. 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 She has multiple health problems, they have been living together for 6 years. 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 He is very worried about his mother, and her being on her own. They have gone through [place] [employer] application, it is unclear if she currently has a caregiver. He has 2 brothers, but has been estranged from them. Medications/Allergies - Medications Active Medication List: Active Medications Albuterol (Albuterol Neb 2.5 Mg/3 Ml) 2.5 mg INH RTQ4H PRN PRN Reason: Wheezing Last Admin: 03/20/20 18:00 Dose: 2.5 mg Documented by: Bupropion HCl (Bupropion Sr 150 Mg Tablet) 150 mg PO BID [facility] Last Admin: 03/22/20 07:59 Dose: 150 mg Documented by: Famotidine (Famotidine 20 Mg Tablet) 20 mg PO BID [facility] Last Admin: 03/22/20 07:59 Dose: 20 mg Documented by: Furosemide (Furosemide 40 Mg Tablet) 40 mg PO DAILY [facility] Last Admin: 03/22/20 07:59 Dose: 40 mg Documented by: Insulin Aspart (Insulin Aspart 300 Unit/3 Ml Pen) 3 - 11 unit SUBQ 0800,1200,1700,2100 [facility]; Protocol Last Admin: 03/22/20 17:20 Dose: 5 unit Documented by: Insulin Aspart (Insulin Aspart 300 Unit/3 Ml Pen) 5 unit SUBQ TIDWM [facility]; Protocol Last Admin: 03/22/20 17:21 Dose: 5 unit Documented by: Insulin Glargine (Insulin Glargine 300 Unit/3 Ml Pen) 20 unit SUBQ QPM [facility] Last Admin: 03/21/20 20:19 Dose: 20 unit Documented by: Lidocaine (Lidocaine Patch 5%) 1 patch TOP DAILY PRN PRN Reason: PAIN Last Admin: 03/21/20 17:04 Dose: 1 patch Documented by: Metoprolol Succinate (Metoprolol Succinate 25 Mg Tablet) 25 mg PO BID [facility] Last Admin: 03/22/20 07:59 Dose: 25 mg Documented by: Multivitamins/Minerals (Multivitamin W/Minerals Tablet) 1 tab PO DAILY [facility] Last Admin: 03/22/20 07:58 Dose: 1 tab Documented by: Oxybutynin Chloride (Oxybutynin 5mg Tablet) 5 mg PO BID [facility] Last Admin: 03/22/20 07:59 Dose: 5 mg Documented by: Multivit/Folic Acid/Iron ( Vitamin Tablet) 1 tab PO DAILYWM [facility] Last Admin: 03/22/20 07:58 Dose: 1 tab Documented by: Sodium Chloride (Sodium Chloride Flush 0.9% 10 Ml Syringe) 10 ml IVP PRN PRN PRN Reason: NEEDED PER PROVIDER ORDERS Last Admin: 03/19/20 22:02 Dose: 20 ml Documented by: Sodium Chloride (Sodium Chloride Flush 0.9% 10 Ml Syringe) 10 ml IVP 0100,0900,1700 [facility] Last Admin: 03/22/20 17:20 Dose: 10 ml Documented by: Spironolactone (Spironolactone 25 Mg Tablet) 75 mg PO BID [facility] Last Admin: 03/22/20 08:03 Dose: 75 mg Documented by: Thiamine HCl (Thiamine 100 Mg Tablet) 100 mg PO DAILY [facility] Last Admin: 03/22/20 07:58 Dose: 100 mg Documented by: Atorvastatin [Lipitor] 40 mg PO QPM 08/17/14 Albuterol Sulfate [Proair Hfa Inhaler] 1 - 2 puffs INH Q4H PRN 11/13/16 Aspirin [Adult Low Dose Aspirin EC] 81 mg PO DAILY 11/13/16 Insulin Glargine,Hum.rec.anlog [Basaglar Kwikpen U-100] 65 units SUBQ DAILY PM 11/13/16 Insulin Regular, Human [Humulin R] 15 - 30 units SUBQ TIDWM 11/13/16 Fluticasone Propionate [Flovent Diskus] 1 puffs IH DAILY 02/15/20 Metoprolol Tartrate [Lopressor] 25 mg PO BID 02/15/20 Multivitamin W/Minerals [Theragran M] 1 tab PO DAILY 02/15/20 buPROPion HCL [Bupropion HCl Sr] 150 mg PO BID 02/15/20 Losartan Potassium [Cozaar] 100 mg PO DAILY 03/18/20 - Allergies Allergies/Adverse Reactions: Allergies Allergy/AdvReac Type Severity Reaction Status Date / Time lisinopril Allergy Unknown Verified 03/18/20 12:08 Review of Systems - Constitutional Constitutional: reports: Fatigue (continues), Weakness, Poor appetite, Weight loss (296 down to 238). denies: Fever - Eyes Eyes: reports: Vision loss - Ears, Nose & Throat Ears, Nose & Throat: reports: Dry mouth (feeling "parched" education provided on fluid restriction rationale), Other (edentulous) - Cardiovascular Cardiovascular: reports: Edema, Exertional dyspnea, Decr. exercise tolerance - Respiratory Respiratory: reports: Wheezing, Orthopnea, SOB at rest, SOB with exertion - Gastrointestinal Gastrointestinal: reports: Abdominal pain, Abdominal distention, Bloating, Poor appetite, Early satiety - Genitourinary Genitourinary: reports: Other (spasms when urine releases; severe pain-some improvement with oxybutin) - Musculoskeletal Musculoskeletal: reports: Muscle pain, Back pain, Muscle aches, Stiffness, Limited range of motion, Muscle weakness, Joint pain, Assistive devices (able to ambulate short distances;) - Integumentary Integumentary: reports: Rash, Lesions, Dryness, Nail changes - Neurological Neurological: reports: General weakness, Numbness (severe peripheral neuropathy) - Psychiatric Psychiatric: reports: Depression, Anxiety. denies: Suicidal - Endocrine Endocrine: reports: Diabetes type 2 (poorly controlled; reports was "noncompliant"; has not been eating for several months; blood sugars remain elevated) - Hematologic/Lymphatic Hematologic/Lymph: Anemia - All Other Systems All Other Systems: reports: Reviewed and negative Physical Exam - Vital Signs Vital Signs: Vital Signs x48h Temp Pulse Resp BP Pulse Ox 03/22/20 16:17 36.5 C 91 24 122/70 98 03/22/20 12:29 36.8 C 73 20 120/68 94 - Physical Exam General Appearance: positive: Alert, Mild distress, Anxious (worried about delay in getting liver "work up") Eyes Bilateral: positive: Normal inspection ENT: positive: No signs of dehydration Neck: positive: Trachea midline Cardiovascular: positive: Regular rate & rhythm Respiratory: negative: No respiratory distress (breathless with conversation) Abdomen: positive: Distended, Taut, Obese Skin: positive: Pallor, Dryness, Wound (left outer leg; dressing intact; trauma wound from scrape), Other (sallow) Extremities: positive: Pedal edema, Other (venuos stasis) Neurologic/Psychiatric: positive: Oriented x3, Weakness, Depressed mood/affect, Flat affect Palliative Care - POLST Patient has POLST: No POLST Status: Full Code Pain: Pain improved, Location (with bladder/penis) Tiredness/Fatigue: Moderate (4-6) Sleep: Sleep improved Performance Status: Patient continues to struggle with his deconditioning and overall general weakness. He is somewhat limited by his ascites and morbid obesity. He is working with PT and OT, he reports his most limiting factor for self-care currently is to be able to be independent in toileting and pericare. - Palliative Care Discussion: Patient had filled out a form honoring choices, he did designate his mother as his durable power of health consumer attorney. He was unable to identify a second person. At this point in time after discussion, he does understand the seriousness of his illness though we are trying to get further definition of what this means as far as prognosis. Discussion regarding their frustrations awaiting trying to both look forward and be hopeful, as well as not being patient given the process particular around placement in the era of the pandemic. Discussed that hopefully the CT scan will give us more information regarding the severity of his illness, and possibly further definition. Importance of follow through with his appointment with gastroenterology this is set on 04/03 the patient may be at that time placed at SNF. Regarding goals, patient's hope is to get stronger, regain some independence, and be able to support and care for his mother again. He does not want to be a burden, if he were to decline or little hope of returning back to independent living, he would not want to prolong his suffering. This would be the threshold for transitioning to DNA R/DNI. Currently he would accept full code, did review in the context of his illness, may need to continue to revisit these decisions weighing benefits and burdens as sequela/and/or complications occur. He is in agreement with this. Counseling provided regarding the role of palliative care, the continuum of care from home health to hospice, and supportive palliative care in the outpatient basis.Arrangements made for notary, copy of document needs to be scanned and put in patient's chart. Results - Lab Results Lab results reviewed: Yes Fish Bones: 03/22/20 05:55 03/22/20 05:55 Lab and Imaging Results: Lab Results x24hrs 03/22/20 03/22/20 03/22/20 Range/Units 16:36 11:56 07:42 WBC (4.8-10.8) x10^3/uL RBC (4.70-6.10) 10^6/uL Hgb (14.0-18.0) g/dL Hct (42.0-52.0) % MCV (80.0-94.0) fL MCH (27.0-31.0) pg MCHC (32.0-36.0) g/dL RDW (12.0-15.0) % Plt Count (130-450) 10^3/uL MPV (7.4-11.4) fL Neut # (Auto) (1.5-6.6) 10^3/uL Lymph # (Auto) (1.5-3.5) 10^3/uL [place] # (Auto) (0.0-1.0) 10^3/uL Eos # (Auto) (0.0-0.7) 10^3/uL Baso # (Auto) (0.0-0.1) 10^3/uL Absolute Nucleated RBC x10^3/uL Nucleated RBC % /100WBC Sodium (135-145) mmol/L Potassium (3.5-5.0) mmol/L Chloride (101-111) mmol/L Carbon Dioxide (21-32) mmol/L Anion Gap (6-13) BUN (6-20) mg/dL Creatinine (0.6-1.2) mg/dL Estimated GFR (MDRD) (>89) Glucose (70-100) mg/dL POC Whole Bld Glucose 224 H 281 H 286 H (70 - 100) mg/dL Calcium (8.5-10.3) mg/dL Total Bilirubin (0.2-1.0) mg/dL AST (10-42) IU/L ALT (10-60) IU/L Alkaline Phosphatase (42-121) IU/L Total Protein (6.7-8.2) g/dL Albumin (3.2-5.5) g/dL Globulin (2.1-4.2) g/dL Albumin/Globulin Ratio (1.0-2.2) 03/22/20 03/22/20 Range/Units 05:55 05:55 WBC 5.1 (4.8-10.8) x10^3/uL RBC 3.43 L (4.70-6.10) 10^6/uL Hgb 11.6 L (14.0-18.0) g/dL Hct 33.3 L (42.0-52.0) % MCV 97.1 H (80.0-94.0) fL MCH 33.8 H (27.0-31.0) pg MCHC 34.8 (32.0-36.0) g/dL RDW 13.4 (12.0-15.0) % Plt Count 131 (130-450) 10^3/uL MPV 9.8 (7.4-11.4) fL Neut # (Auto) 2.4 (1.5-6.6) 10^3/uL Lymph # (Auto) 1.4 L (1.5-3.5) 10^3/uL [place] # (Auto) 0.8 (0.0-1.0) 10^3/uL Eos # (Auto) 0.4 (0.0-0.7) 10^3/uL Baso # (Auto) 0.1 (0.0-0.1) 10^3/uL Absolute Nucleated RBC 0.00 x10^3/uL Nucleated RBC % 0.0 /100WBC Sodium 134 L (135-145) mmol/L Potassium 3.7 (3.5-5.0) mmol/L Chloride 101 (101-111) mmol/L Carbon Dioxide 27 (21-32) mmol/L Anion Gap 6.0 (6-13) BUN 31 H (6-20) mg/dL Creatinine 1.1 (0.6-1.2) mg/dL Estimated GFR (MDRD) 71 L (>89) Glucose 294 H (70-100) mg/dL POC Whole Bld Glucose (70 - 100) mg/dL Calcium 8.6 (8.5-10.3) mg/dL Total Bilirubin 2.2 H (0.2-1.0) mg/dL AST 38 (10-42) IU/L ALT 19 (10-60) IU/L Alkaline Phosphatase 70 (42-121) IU/L Total Protein 6.2 L (6.7-8.2) g/dL Albumin 2.4 L (3.2-5.5) g/dL Globulin 3.8 (2.1-4.2) g/dL Albumin/Globulin Ratio 0.6 L (1.0-2.2) Impression and Recommendations - Palliative Care Impression: This is a 49-year-old gentleman who presents with worsening symptoms, with now defined cirrhosis on CT scan. Patient presents as a failure to thrive, with decreasing functional status, worsening symptom burden, anasarca, and recurrent ascites. Patient is currently abstained from alcohol, his plan is to continue this goal with a recognition of the seriousness of the consequences. Palliative care providing support regarding symptom management, anticipatory guidance, and assistance with coordination of care. Recommendations/Counseling Done: 1. Cirrhosis of the liver. CT scan did show marked ascites, indeterminate 2.6 cm right lobe lesion, with recommendation for further evaluation and multiphase MRI. He also shows a 2.8 lesion inferior to the spleen which may represent splenosis. He does have cholelithiasis and anasarca, and confirms his back pain and disc protrusion at L5-S1. When met with patient, I did not have results of scan, we did discuss so in the context of limiting paracentesis as a result of the risks, further expected work-up and follow-up with GI, as well as reasoning for her diuretics and fluid restriction for management of ascites. Patient is quite uncomfortable, has high anxiety regarding his current situation, and hopeful to be able to recover to some level of independence. 2. Generalized weakness. Patient is working with PT and OT. Recommended par ticipate and focus on getting stronger, is in a good environment now even though waiting on SNF can progress his current level of functioning. At this point in time he is still quite dependent, would not be able to manage without max assist. Message to OT regarding patient's concerns around ADLs. Current goal is still for placement for SNF and rehab. 3. Depression. Patient with longstanding depression, most likely exacerbated by alcoholism. Supportive listening and presence provided, as well as counseling regarding setting short-term goals. 4. Advanced care planning. Patient did complete on honor your choices, did go through form and answer questions as well as conversation regarding what constitutes quality of life, threshold for withdrawal of care, education on CPR and advanced care planning. Arrangements made for notary to complete. Patient at this point in time given his current condition and waiting for work-up and outcome of tests, would like to be a full code. He reports this would be revisited in the context of healthcare decisions as more information is available. Time Spent: 45 minutes with greater than 50% of this done in counseling regarding disease process, management of ascites, advanced care planning, and anticipatory guidance.
[2020-03-22] MEDS: INSULIN GLARGINE 300 UNIT/3 ML PEN SUBQ SCH (21:18)
[2020-03-23] MEDS: SODIUM CHLORIDE FLUSH 0.9% 10 ML SYRINGE IVP SCH ×4 (01:23→23:34)
[2020-03-23 05:30] LABS: BASOPHILS # (AUTO) 0.1 10^3/uL (0.0-0.1); BASOPHILS % (AUTO) 1.5 %; EOSINOPHILS # (AUTO) 0.4 10^3/uL (0.0-0.7); EOSINOPHILS % (AUTO) 6.4 %; HGB - HEMOGLOBIN 11.3 g/dL (14.0-18.0); LYMPHOCYTES # (AUTO) 1.4 10^3/uL (1.5-3.5); LYMPHOCYTES % (AUTO) 25.1 %; MEAN CORPUSCULAR HEMOGLOBIN 32.8 pg (27.0-31.0); MEAN CORPUSCULAR VOLUME 96.5 fL (80.0-94.0); MEAN PLATELET VOLUME 9.9 fL (7.4-11.4); MONOCYTES # (AUTO) 0.9 10^3/uL (0.0-1.0); MONOCYTES % (AUTO) 17.2 %; NEUTROPHILS # (AUTO) 2.7 10^3/uL (1.5-6.6); NEUTROPHILS % (AUTO) 49.6 %; PLT - PLATELET COUNT 141 10^3/uL (130-450); RED BLOOD COUNT 3.44 10^6/uL (4.70-6.10); RED CELL DISTRIBUTION WIDTH 13.5 % (12.0-15.0); WHITE BLOOD COUNT 5.5 x10^3/uL (4.8-10.8)
[2020-03-23 05:42] LABS: ALBUMIN 2.5 g/dL (3.2-5.5); ALBUMIN/GLOBULIN RATIO 0.7 (1.0-2.2); BILIRUBIN,TOTAL 2.3 mg/dL (0.2-1.0); CALCIUM 8.7 mg/dL (8.5-10.3)
[2020-03-23] MEDS ORDERED: INSULIN GLARGINE 300 UNIT/3 ML PEN SUBQ SCH ×2 (08:00→21:00)
[2020-03-23] MEDS: INSULIN ASPART 300 UNIT/3 ML PEN SUBQ SCH ×7 (08:05→20:56)
[2020-03-23] MEDS: PRENATAL VITAMIN TABLET PO SCH (08:07)
[2020-03-23] MEDS: SPIRONOLACTONE 25 MG TABLET PO SCH ×2 (08:07→20:56)
[2020-03-23] MEDS: buPROPion SR 150 MG TABLET PO SCH ×2 (08:07→20:55)
[2020-03-23] MEDS: MULTIVITAMIN W/MINERALS TABLET PO SCH (08:07)
[2020-03-23] MEDS: OXYBUTYNIN 5MG TABLET PO SCH ×2 (08:08→20:56)
[2020-03-23] MEDS: METOPROLOL SUCCINATE 25 MG TABLET PO SCH ×2 (08:08→20:56)
[2020-03-23] MEDS: FUROSEMIDE 40 MG TABLET PO SCH (08:08)
[2020-03-23] MEDS: THIAMINE 100 MG TABLET PO SCH (08:08)
[2020-03-23] MEDS: FAMOTIDINE 20 MG TABLET PO SCH ×2 (08:08→20:55)
--- NOTE | 2020-03-23 14:06 | PROVIDER PROGRESS NOTE ---
Assessment/Plan - Problem List (1) Ascites Assessment/Plan: 17, Patient is alert and orientated plus 4, Discussed with the patient for CAT scan of her abdomen, Which show There is a mass 2.6 cm size in his liver, Recommended to have MRI, MRI is ordered and result is pending. Social work was consulted for patient disposition. 03/22 Patient had medium size of Ascites, Patient does not need urgently for paracentesis now. Discussed with patient, he understand the benefit and the risk of Paracentesis. Patient is also pending on replacement, Continue to consult with social work. at this point we do not know what the time social media editor could find a SNF for patient yet. We will continue monitor patient, we might have paracentesis for Patient before patient be discharged to the SNF. 03/21 Patient is alert orientated +4. Patient's abdomen did extend again. Patient had paracentesis 2 days ago. We will plan to have another Paracentesis on today by interventional radiologist. Patient had a low albumin, we will give the patient intravenous albumin protein. We will recheck PT and INR. Patient need frequently Paracentesis now. Patient had Meld score 15 With 6% mortality rate in 3-month. Discussed the care plan with patient, patient agree to have palliative care. Consult with palliative care. Patient also report he had GI appointment in April 03, He will discuss with his GI doctor for Possibility of liver transplant. We will continue give pt Lasix, diuretics, Close monitor patient vital signs. (2) Tachycardia Assessment/Plan: resolved (3) Anasarca Assessment/Plan: 03/22 stable and improved slight, However patient also show mild to moderate dehydration. will continue Home medication: Lasix, continue home spironolactone, Hold intravenous Lasix and diuretic metolazone. (4) Scrotal edema Assessment/Plan: stable and slight improved. pain is improved. (5) Swelling of penis Assessment/Plan: 03/22 slight improved. He continues to need her chronic indwelling Blunt, add oxybutynin for her spasm and pain (6) Alcoholic liver disease Assessment/Plan: Patient denies alcohol withdrawal symptoms now. He reported he already stop drinking alcohol. He used to drink a 6-pack or more of beer a day. Continue vitamins and Thiamine orally. Advised patient follow-up with his GI appointment For further management his medication issue. (7) Weakness Assessment/Plan: 17Improved per Physical therapist report, Continue PT and OT Patient Still present weakness. PT and OT evaluated and treated patient, recommend patient discharged SNF. Consult social work for safely disposition. (8) Hyponatremia Assessment/Plan: Sodium is 134 today, nearly resolved. This is likely hypervolemic hyponatremia. He has already been instituted on a total fluid/day restriction. We will continue Lasix diuretics, Continue I&O Follow BMP daily. (9) Diabetes mellitus, insulin dependent (IDDM), uncontrolled Assessment/Plan: 03/23 Patient actually take Lantus 65 Unit in the Home. Patient sugar is still over 200, We will add 30 units Lantus insulin In the night, Continue sliding- scale 03/22 Patient still has over 200 glucose level. We will check A1c, We will increase to 20 units Lantus in the night, continue sliding scale, And Novolog 5 units 3 times daily before the meal (10) Hx of essential hypertension Assessment/Plan: stable, continue home meds (11) Chronic low back pain Assessment/Plan: continue pain control, continue lidocaine patch topical. His current goals are to get stronger, be able to take care of himself again, and be able to return home. He is awaiting SNF placement, (12) chronic urinary Blunt catheter Patient has urinary retention plus swelling of the penis, Continue Blunt catheter, Continue catheter care (13) functional decline Patient present recently function significantly declined, Plus anasarca, significant edema, with ascites, Patient now need paracentesis. Consult with palliative care, advised patient follow-up palliative care (14)Dehydration 03-23, Creatinine is reduced to 1, Continue home medication Lasix and splironolactone, Continue laboratory technical specialist 03/22 21Today patient present clinically some dehydration, creatine and BUN had slightly elevated. We will hold intravenous Lasix and diuretics, resume home oral Lasix and splironolactone, Removal of fluids restriction. Continue laboratory technical specialist - Current Meds Current Meds: Current Medications Generic Name Dose Route Start Last Admin Trade Name Freq PRN Reason Stop Dose Admin Albuterol 2.5 mg 03/20/20 17:46 03/20/20 18:00 Albuterol Neb 2.5 Mg/3 Ml INH 2.5 mg RTQ4H PRN Administration Wheezing Bupropion HCl 150 mg 03/22/20 09:00 03/23/20 08:07 Bupropion Sr 150 Mg Tablet PO 150 mg BID JOY Administration Famotidine 20 mg 03/18/20 21:00 03/23/20 08:08 Famotidine 20 Mg Tablet PO 20 mg BID JOY Administration Furosemide 40 mg 03/22/20 09:00 03/23/20 08:08 Furosemide 40 Mg Tablet PO 40 mg DAILY JOY Administration Insulin Aspart 3 - 11 unit 03/20/20 17:00 03/23/20 12:38 Insulin Aspart 300 Unit/3 Ml Pen SUBQ 7 unit 0800,1200,1700,2100 JOY Administration Protocol Insulin Aspart 5 unit 03/22/20 08:00 03/23/20 12:39 Insulin Aspart 300 Unit/3 Ml Pen SUBQ 5 unit TIDWM JOY Administration Protocol Lidocaine 1 patch 03/20/20 16:54 03/21/20 17:04 Lidocaine Patch 5% TOP 1 patch DAILY PRN Administration PAIN Metoprolol Succinate 25 mg 03/19/20 09:00 03/23/20 08:08 Metoprolol Succinate 25 Mg Tablet PO 25 mg BID JOY Administration Multivitamins/Minerals 1 tab 03/22/20 09:00 03/23/20 08:07 Multivitamin W/Minerals Tablet PO 1 tab DAILY JOY Administration Oxybutynin Chloride 5 mg 03/21/20 21:00 03/23/20 08:08 Oxybutynin 5mg Tablet PO 5 mg BID JOY Administration Sodium Chloride 10 ml 03/18/20 16:09 03/19/20 22:02 Sodium Chloride Flush 0.9% 10 Ml Syringe IVP 20 ml PRN PRN Administration NEEDED PER PROVIDER ORDERS Sodium Chloride 10 ml 03/18/20 17:00 03/23/20 08:09 Sodium Chloride Flush 0.9% 10 Ml Syringe IVP 10 ml 0100,0900,1700 JOY Administration Spironolactone 75 mg 03/22/20 09:00 03/23/20 08:07 Spironolactone 25 Mg Tablet PO 75 mg BID JOY Administration Thiamine HCl 100 mg 03/21/20 09:00 03/23/20 08:08 Thiamine 100 Mg Tablet PO 100 mg DAILY JOY Administration - Lab Result Fish Bone Diagrams: 03/23/20 05:15 03/23/20 05:15 - Additional Planning My Orders: My Active Orders 03/23/20 07:35 Abdomen W/ [MRI] Routine 03/23/20 21:00 Insulin Glargine [Lantus Solostar] 30 unit SUBQ QPM 03/24/20 05:00 CMP [COMPREHENSIVE METABOLIC PANEL] [CHEM] DAILYLAB 03/25/20 05:00 CMP [COMPREHENSIVE METABOLIC PANEL] [CHEM] DAILYLAB 03/26/20 05:00 CMP [COMPREHENSIVE METABOLIC PANEL] [CHEM] DAILYLAB Subjective - Subjective Patient Reports: Feeling Better Objective Vital Signs: Vital Signs - 24 hr 03/22/20 03/22/20 03/22/20 16:17 20:52 21:45 Temperature 36.5 C 37.1 C Heart Rate 78 Heart Rate [ 91 78 Brachial] Respiratory 24 24 22 Rate Blood Pressure 122/70 120/72 [Right Brachial artery] O2 Saturation 98 98 03/23/20 03/23/20 03/23/20 00:16 05:00 07:32 Temperature 37.5 C 37.5 C 37 C Heart Rate Heart Rate [ 84 90 96 Brachial] Respiratory 18 16 24 Rate Blood Pressure 122/71 123/71 115/66 [Right Brachial artery] O2 Saturation 94 95 94 03/23/20 03/23/20 12:45 13:02 Temperature 36.5 C Heart Rate 82 Heart Rate [ 82 Brachial] Respiratory 20 20 Rate Blood Pressure 113/65 [Right Brachial artery] O2 Saturation 93 Oxygen O2 Source Room air I&O (Last 24 Hrs): Intake and Output Totals x24h 03/21/20 03/22/20 03/23/20 23:59 23:59 23:59 Intake Total 1970 1332 1600 Output Total 1025 1925 900 Balance 945 -593 700 General: Alert, Oriented x3, No acute distress HEENT: Atraumatic Neck: Supple Lymphatic: no adenopathy Neuro: Alert, Non Focal, Oriented Times 3 Cardiovascular: Regular rate, Normal S1, Normal S2 Respiratory: Chest non-tender, No respiratory distress Abdomen: Normal bowel sounds, No tenderness Extremities: Normal pulses - Results Results: Laboratory Results WBC 5.5 x10^3/uL (4.8-10.8) 03/23/20 05:15 RBC 3.44 10^6/uL (4.70-6.10) L 03/23/20 05:15 Hgb 11.3 g/dL (14.0-18.0) L 03/23/20 05:15 Hct 33.2 % (42.0-52.0) L 03/23/20 05:15 MCV 96.5 fL (80.0-94.0) H 03/23/20 05:15 MCH 32.8 pg (27.0-31.0) H 03/23/20 05:15 MCHC 34.0 g/dL (32.0-36.0) 03/23/20 05:15 RDW 13.5 % (12.0-15.0) 03/23/20 05:15 Plt Count 141 10^3/uL (130-450) 03/23/20 05:15 MPV 9.9 fL (7.4-11.4) 03/23/20 05:15 Neut # (Auto) 2.7 10^3/uL (1.5-6.6) 03/23/20 05:15 Lymph # (Auto) 1.4 10^3/uL (1.5-3.5) L 03/23/20 05:15 [place] # (Auto) 0.9 10^3/uL (0.0-1.0) 03/23/20 05:15 Eos # (Auto) 0.4 10^3/uL (0.0-0.7) 03/23/20 05:15 Baso # (Auto) 0.1 10^3/uL (0.0-0.1) 03/23/20 05:15 Absolute Nucleated RBC 0.00 x10^3/uL 03/23/20 05:15 Nucleated RBC % 0.0 /100WBC 03/23/20 05:15 PT 15.0 secs (9.9-12.6) H 03/21/20 12:35 INR 1.4 (0.8-1.2) H 03/21/20 12:35 Sodium 133 mmol/L (135-145) L 03/23/20 05:15 Potassium 4.0 mmol/L (3.5-5.0) 03/23/20 05:15 Chloride 100 mmol/L (101-111) L 03/23/20 05:15 Carbon Dioxide 26 mmol/L (21-32) 03/23/20 05:15 Anion Gap 7.0 (6-13) 03/23/20 05:15 BUN 31 mg/dL (6-20) H 03/23/20 05:15 Creatinine 1.0 mg/dL (0.6-1.2) 03/23/20 05:15 Estimated GFR (MDRD) 79 (>89) L 03/23/20 05:15 Glucose 244 mg/dL (70-100) H 03/23/20 05:15 POC Whole Bld Glucose 230 mg/dL (70 - 100) H 03/23/20 11:05 Estimat Average Glucose 157 mg/dL (70-100) H 03/21/20 07:14 Hemoglobin A1c % 7.1 % (4.27-6.07) H 03/21/20 07:14 Calcium 8.7 mg/dL (8.5-10.3) 03/23/20 05:15 Magnesium 1.7 mg/dL (1.7-2.8) 03/20/20 09:40 Total Bilirubin 2.3 mg/dL (0.2-1.0) H 03/23/20 05:15 AST 37 IU/L (10-42) 03/23/20 05:15 ALT 20 IU/L (10-60) 03/23/20 05:15 Alkaline Phosphatase 73 IU/L (42-121) 03/23/20 05:15 B-Natriuretic Peptide 42 pg/mL (5-100) 03/18/20 13:54 Total Protein 6.0 g/dL (6.7-8.2) L 03/23/20 05:15 Albumin 2.5 g/dL (3.2-5.5) L 03/23/20 05:15 Globulin 3.5 g/dL (2.1-4.2) 03/23/20 05:15 Albumin/Globulin Ratio 0.7 (1.0-2.2) L 03/23/20 05:15 Lipase 74 U/L (22-51) H 03/18/20 13:54 Nasal Adenovirus (PCR) NOT DETECTED 03/18/20 15:55 Nasal B. parapertussis DNA (PCR) NOT DETECTED 03/18/20 15:55 Nasal Coronavir 229E PCR NOT DETECTED 03/18/20 15:55 Nasal Coronavir HKU1 PCR NOT DETECTED 03/18/20 15:55 Nasal Coronavir NL63 PCR NOT DETECTED 03/18/20 15:55 Nasal Coronavir OC43 PCR NOT DETECTED 03/18/20 15:55 Nasal Enterovir/Rhinovir PCR NOT DETECTED 03/18/20 15:55 Nasal Influenza B PCR NOT DETECTED 03/18/20 15:55 Nasal Influenza A PCR NOT DETECTED 03/18/20 15:55 Nasal Parainfluen 1 PCR NOT DETECTED 03/18/20 15:55 Nasal Parainfluen 2 PCR NOT DETECTED 03/18/20 15:55 Nasal Parainfluen 3 PCR NOT DETECTED 03/18/20 15:55 Nasal Parainfluen 4 PCR NOT DETECTED 03/18/20 15:55 Nasal RSV (PCR) NOT DETECTED 03/18/20 15:55 Nasal B.pertussis DNA PCR NOT DETECTED 03/18/20 15:55 Nasal C.pneumoniae (PCR) NOT DETECTED 03/18/20 15:55 Natanael Human Metapneumo PCR NOT DETECTED 03/18/20 15:55 Nasal M.pneumoniae (PCR) NOT DETECTED 03/18/20 15:55 Nasal SARS-CoV-2 (PCR) NOT DETECTED 03/18/20 15:55 Urine Opiates Screen POSITIVE (NEGATIVE) H 03/18/20 16:19 Ur Oxycodone Screen NEGATIVE (NEGATIVE) 03/18/20 16:19 Urine Methadone Screen NEGATIVE (NEGATIVE) 03/18/20 16:19 Ur Propoxyphene Screen NEGATIVE (NEGATIVE) 03/18/20 16:19 Ur Barbiturates Screen NEGATIVE (NEGATIVE) 03/18/20 16:19 Ur Tricyclics Screen NEGATIVE (NEGATIVE) 03/18/20 16:19 Ur Phencyclidine Scrn NEGATIVE (NEGATIVE) 03/18/20 16:19 Ur Amphetamine Screen NEGATIVE (NEGATIVE) 03/18/20 16:19 U Methamphetamines Scrn NEGATIVE (NEGATIVE) 03/18/20 16:19 U Benzodiazepines Scrn POSITIVE (NEGATIVE) H 03/18/20 16:19 Urine Cocaine Screen NEGATIVE (NEGATIVE) 03/18/20 16:19 U Cannabinoids Screen NEGATIVE (NEGATIVE) 03/18/20 16:19 Ethyl Alcohol < 5.0 mg/dL 03/18/20 13:54 Coronavirus (PCR) NEGATIVE 03/21/20 15:05 - Procedures Procedures: Procedures DRAINAGE OF PERITONEAL CAVITY, PERCUTANEOUS APPROACH (12/01/20) ABX Reporting Has patient been on IV antibiotics over the past 48 hours?: No Current Medications - Current Medications Current Medications: Active Medications Albuterol (Albuterol Neb 2.5 Mg/3 Ml) 2.5 mg INH RTQ4H PRN PRN Reason: Wheezing Last Admin: 03/20/20 18:00 Dose: 2.5 mg Documented by: Bupropion HCl (Bupropion Sr 150 Mg Tablet) 150 mg PO BID [facility] Last Admin: 03/23/20 08:07 Dose: 150 mg Documented by: Famotidine (Famotidine 20 Mg Tablet) 20 mg PO BID [facility] Last Admin: 03/23/20 08:08 Dose: 20 mg Documented by: Furosemide (Furosemide 40 Mg Tablet) 40 mg PO DAILY [facility] Last Admin: 03/23/20 08:08 Dose: 40 mg Documented by: Insulin Aspart (Insulin Aspart 300 Unit/3 Ml Pen) 3 - 11 unit SUBQ 0800,1200,1700,2100 [facility]; Protocol Last Admin: 03/23/20 12:38 Dose: 7 unit Documented by: Insulin Aspart (Insulin Aspart 300 Unit/3 Ml Pen) 5 unit SUBQ TIDWM [facility]; Protocol Last Admin: 03/23/20 12:39 Dose: 5 unit Documented by: Insulin Glargine (Insulin Glargine 300 Unit/3 Ml Pen) 30 unit SUBQ QPM [facility] Lidocaine (Lidocaine Patch 5%) 1 patch TOP DAILY PRN PRN Reason: PAIN Last Admin: 03/21/20 17:04 Dose: 1 patch Documented by: Metoprolol Succinate (Metoprolol Succinate 25 Mg Tablet) 25 mg PO BID [facility] Last Admin: 03/23/20 08:08 Dose: 25 mg Documented by: Multivitamins/Minerals (Multivitamin W/Minerals Tablet) 1 tab PO DAILY [facility] Last Admin: 03/23/20 08:07 Dose: 1 tab Documented by: Oxybutynin Chloride (Oxybutynin 5mg Tablet) 5 mg PO BID [facility] Last Admin: 03/23/20 08:08 Dose: 5 mg Documented by: Sodium Chloride (Sodium Chloride Flush 0.9% 10 Ml Syringe) 10 ml IVP PRN PRN PRN Reason: NEEDED PER PROVIDER ORDERS Last Admin: 03/19/20 22:02 Dose: 20 ml Documented by: Sodium Chloride (Sodium Chloride Flush 0.9% 10 Ml Syringe) 10 ml IVP 0100,0900,1700 [facility] Last Admin: 03/23/20 08:09 Dose: 10 ml Documented by: Spironolactone (Spironolactone 25 Mg Tablet) 75 mg PO BID [facility] Last Admin: 03/23/20 08:07 Dose: 75 mg Documented by: Thiamine HCl (Thiamine 100 Mg Tablet) 100 mg PO DAILY [facility] Last Admin: 03/23/20 08:08 Dose: 100 mg Documented by: Atorvastatin [Lipitor] 40 mg PO QPM 08/17/14 Albuterol Sulfate [Proair Hfa Inhaler] 1 - 2 puffs INH Q4H PRN 11/13/16 Aspirin [Adult Low Dose Aspirin EC] 81 mg PO DAILY 11/13/16 Insulin Glargine,Hum.rec.anlog [Basaglar Kwikpen U-100] 65 units SUBQ DAILY PM 11/13/16 Insulin Regular, Human [Humulin R] 15 - 30 units SUBQ TIDWM 11/13/16 Fluticasone Propionate [Flovent Diskus] 1 puffs IH DAILY 02/15/20 Metoprolol Tartrate [Lopressor] 25 mg PO BID 02/15/20 Multivitamin W/Minerals [Theragran M] 1 tab PO DAILY 02/15/20 buPROPion HCL [Bupropion HCl Sr] 150 mg PO BID 02/15/20 Losartan Potassium [Cozaar] 100 mg PO DAILY 03/18/20
[2020-03-24 07:13] LABS: ALBUMIN 2.4 g/dL (3.2-5.5); ALBUMIN/GLOBULIN RATIO 0.7 (1.0-2.2); BILIRUBIN,TOTAL 2.4 mg/dL (0.2-1.0); CALCIUM 8.5 mg/dL (8.5-10.3); CREATININE 1.2 mg/dL (0.6-1.2)
[2020-03-24] MEDS ORDERED: GADOBUTROL 15 MMOL/15 ML VIAL ONE (07:23)
[2020-03-24 07:42] LABS: BASOPHILS # (AUTO) 0.1 10^3/uL (0.0-0.1); BASOPHILS % (AUTO) 1.7 %; EOSINOPHILS # (AUTO) 0.4 10^3/uL (0.0-0.7); EOSINOPHILS % (AUTO) 6.8 %; HGB - HEMOGLOBIN 11.4 g/dL (14.0-18.0); LYMPHOCYTES # (AUTO) 1.3 10^3/uL (1.5-3.5); LYMPHOCYTES % (AUTO) 23.1 %; MEAN CORPUSCULAR HEMOGLOBIN 33.5 pg (27.0-31.0); MEAN CORPUSCULAR HGB CONC 34.8 g/dL (32.0-36.0); MEAN CORPUSCULAR VOLUME 96.5 fL (80.0-94.0); MEAN PLATELET VOLUME 10.2 fL (7.4-11.4); MONOCYTES % (AUTO) 17.3 %; NEUTROPHILS # (AUTO) 2.9 10^3/uL (1.5-6.6); NEUTROPHILS % (AUTO) 50.8 %; PLT - PLATELET COUNT 146 10^3/uL (130-450); RED CELL DISTRIBUTION WIDTH 13.5 % (12.0-15.0); WHITE BLOOD COUNT 5.7 x10^3/uL (4.8-10.8)
[2020-03-24] MEDS: INSULIN ASPART 300 UNIT/3 ML PEN SUBQ SCH ×7 (08:11→21:00)
[2020-03-24] MEDS: FUROSEMIDE 40 MG/4 ML VIAL IVP SCH ×2 (08:13→13:50)
[2020-03-24] MEDS: SODIUM CHLORIDE FLUSH 0.9% 10 ML SYRINGE IVP SCH ×2 (08:13→16:55)
[2020-03-24] MEDS: LIDOCAINE PATCH 5% TOP PRN (08:14)
[2020-03-24] MEDS: FAMOTIDINE 20 MG TABLET PO SCH ×2 (08:53→21:00)
[2020-03-24] MEDS: SPIRONOLACTONE 25 MG TABLET PO SCH ×2 (08:53→21:00)
[2020-03-24] MEDS: buPROPion SR 150 MG TABLET PO SCH ×2 (08:53→21:00)
[2020-03-24] MEDS: MULTIVITAMIN W/MINERALS TABLET PO SCH (08:53)
[2020-03-24] MEDS: OXYBUTYNIN 5MG TABLET PO SCH ×2 (08:53→21:00)
[2020-03-24] MEDS: THIAMINE 100 MG TABLET PO SCH (08:53)
[2020-03-24] MEDS: METOPROLOL SUCCINATE 25 MG TABLET PO SCH ×2 (08:53→21:00)
--- NOTE | 2020-03-24 11:48 | CONSULTATION NOTE ---
Palliative Care Follow Up - Referral Referring Provider: Humza ALBERT Time of Visit: [id number] Referral setting: Hospitalized patient Referral Reason: Depression/Anxiety/Cirrohisis - Information Sources Records reviewed: Previous records reviewed History/Review of Systems obtained from: Patient Exam limitations: No limitations - History of Present Illness Update Brief HPI Update: See 1 5 HPI for more complete history. Patient has been improving slowly, reports today's feeling quite depressed and overwhelmed. He had had a CT of the abdomen, the did confirm cirrhotic appearance of the liver. Unfortunately did show an indeterminant hypodense lesion in the right lobe of the liver measuring 2.6 cm. Because of his girth, he is not able to follow through and get an MRI for further evaluation. This will need to be followed up on an outpatient basis. He has had increasing symptoms with worsening ascites, he is to be tapped this afternoon, with follow-up ultrasound also for diagnostic purposes. Patient is quite frustrated though realizesThat many of his own independent choices have gotten him here. He was hoping to have more of a sense of a plan. We are waiting confirmation/information from [facility] if we will accept him or not. Patient this point in time still needs further rehab, to increase independence and ensure safe and effective transfer home. Patient does have a plan in place for discharge after SNF, he will return to his living situation with his mother, at this point in time would come pleat therapy through home health, and is in process of getting [place] [employer] for further support. Patient does have pending PCP appointment, explained need for primary care provider to be managing overall care, including ordering ongoing paracentesis if necessary. Further therapeutic plan regarding cirrhosis and work-up of liver lesion, will most likely be deferred to accounting tutor/specialist. Past Medical History: Hypertension, high cholesterol, asthma, peripheral neuropathy, retinopathy, type 2 diabetes insulin-dependent, urinary retention, chronic vision loss, depression, osteoarthritis, anxiety, venous stasis, left lower extremity wound/abrasion Social History - Living Situation Living arrangement: At home Living Situation: With family Support System: Patient lives with his mother and subsidized housing. 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 She has multiple health problems, they have been living together for 6 years. 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 He is very worried about his mother, and her being on her own. They have gone through [employer] application, it is unclear if she currently has a caregiver. He has 2 broth ers, but has been estranged from them. Checked in with patient today, he does have a plan for his mother, there is a friend and neighbor who is checking on her. He has been in contact by phone with her daily, she is of course worried about him but otherwise is safe and doing okay Medications/Allergies - Medications Active Medication List: Active Medications Albuterol (Albuterol Neb 2.5 Mg/3 Ml) 2.5 mg INH RTQ4H PRN PRN Reason: Wheezing Last Admin: 03/20/20 18:00 Dose: 2.5 mg Documented by: Bupropion HCl (Bupropion Sr 150 Mg Tablet) 150 mg PO BID [facility] Last Admin: 03/24/20 08:53 Dose: 150 mg Documented by: Famotidine (Famotidine 20 Mg Tablet) 20 mg PO BID [facility] Last Admin: 03/24/20 08:53 Dose: 20 mg Documented by: Furosemide (Furosemide 40 Mg/4 Ml Vial) 40 mg IVP BIDDIURETIC [facility] Last Admin: 03/24/20 08:13 Dose: 40 mg Documented by: Insulin Aspart (Insulin Aspart 300 Unit/3 Ml Pen) 3 - 11 unit SUBQ 0800,1200,1700,2100 [facility]; Protocol Last Admin: 03/24/20 08:11 Dose: 5 unit Documented by: Insulin Aspart (Insulin Aspart 300 Unit/3 Ml Pen) 8 unit SUBQ TIDWM [facility]; Protocol Last Admin: 03/24/20 08:12 Dose: 8 unit Documented by: Insulin Glargine (Insulin Glargine 300 Unit/3 Ml Pen) 30 unit SUBQ QPM [facility] Last Admin: 03/23/20 20:57 Dose: 30 unit Documented by: Lidocaine (Lidocaine Patch 5%) 1 patch TOP DAILY PRN PRN Reason: PAIN Last Admin: 03/24/20 08:14 Dose: 1 patch Documented by: Metoprolol Succinate (Metoprolol Succinate 25 Mg Tablet) 25 mg PO BID [facility] Last Admin: 03/24/20 08:53 Dose: 25 mg Documented by: Multivitamins/Minerals (Multivitamin W/Minerals Tablet) 1 tab PO DAILY [facility] Last Admin: 03/24/20 08:53 Dose: 1 tab Documented by: Oxybutynin Chloride (Oxybutynin 5mg Tablet) 5 mg PO BID [facility] Last Admin: 03/24/20 08:53 Dose: 5 mg Documented by: Sodium Chloride (Sodium Chloride Flush 0.9% 10 Ml Syringe) 10 ml IVP PRN PRN PRN Reason: NEEDED PER PROVIDER ORDERS Last Admin: 03/19/20 22:02 Dose: 20 ml Documented by: Sodium Chloride (Sodium Chloride Flush 0.9% 10 Ml Syringe) 10 ml IVP 0100,0900,1700 [facility] Last Admin: 03/24/20 08:13 Dose: 10 ml Documented by: Spironolactone (Spironolactone 25 Mg Tablet) 75 mg PO BID [facility] Last Admin: 03/24/20 08:53 Dose: 75 mg Documented by: Thiamine HCl (Thiamine 100 Mg Tablet) 100 mg PO DAILY [facility] Last Admin: 03/24/20 08:53 Dose: 100 mg Documented by: Atorvastatin [Lipitor] 40 mg PO QPM 08/17/14 Albuterol Sulfate [Proair Hfa Inhaler] 1 - 2 puffs INH Q4H PRN 11/13/16 Aspirin [Adult Low Dose Aspirin EC] 81 mg PO DAILY 11/13/16 Insulin Glargine,Hum.rec.anlog [Basaglar Kwikpen U-100] 65 units SUBQ DAILY PM 11/13/16 Insulin Regular, Human [Humulin R] 15 - 30 units SUBQ TIDWM 11/13/16 Fluticasone Propionate [Flovent Diskus] 1 puffs IH DAILY 02/15/20 Metoprolol Tartrate [Lopressor] 25 mg PO BID 02/15/20 Multivitamin W/Minerals [Theragran M] 1 tab PO DAILY 02/15/20 buPROPion HCL [Bupropion HCl Sr] 150 mg PO BID 02/15/20 Losartan Potassium [Cozaar] 100 mg PO DAILY 03/18/20 - Allergies Allergies/Adverse Reactions: Allergies Allergy/AdvReac Type Severity Reaction Status Date / Time lisinopril Allergy Unknown Verified 03/18/20 12:08 Review of Systems - Constitutional Constitutional: reports: Fatigue (continues), Weakness, Poor appetite, Weight loss (296 down to 238). denies: Fever - Eyes Eyes: reports: Vision loss - Ears, Nose & Throat Ears, Nose & Throat: reports: Dry mouth (reports dry mouth worse with new medication; not helping with spasms/pain in urethra with voiding) - Cardiovascular Cardiovascular: reports: Edema, Exertional dyspnea, Decr. exercise tolerance - Respiratory Respiratory: reports: Orthopnea, SOB at rest, SOB with exertion - Gastrointestinal Gastrointestinal: reports: Abdominal pain, Abdominal distention (feels worsening), Bloating, Poor appetite, Early satiety - Genitourinary Genitourinary: reports: Other (spasms when urine releases;) - Musculoskeletal Musculoskeletal: reports: Muscle pain, Back pain, Muscle aches, Stiffness, Limited range of motion, Muscle weakness, Joint pain, Assistive devices (able to ambulate short distances;) - Integumentary Integumentary: reports: Rash, Lesions, Dryness, Nail changes - Neurological Neurological: reports: General weakness, Numbness (severe peripheral neuropathy) - Psychiatric Psychiatric: reports: Depression, Anxiety. denies: Suicidal - Endocrine Endocrine: reports: Diabetes type 2 (poorly controlled; reports was "noncomp liant"; has not been eating for several months; blood sugars remain elevated) - Hematologic/Lymphatic Hematologic/Lymph: Anemia - All Other Systems All Other Systems: reports: Reviewed and negative Physical Exam - Vital Signs Vital Signs: Vital Signs x48h Temp Pulse Resp BP Pulse Ox 03/24/20 11:24 37 C 87 20 118/67 97 03/24/20 07:37 37.1 C 95 18 129/72 98 03/24/20 05:00 36.5 C 90 15 115/83 H 98 - Physical Exam General Appearance: positive: Alert, Mild distress, Anxious (worried about delay in getting liver "work up") Eyes Bilateral: positive: Normal inspection ENT: positive: No signs of dehydration Neck: positive: Trachea midline Cardiovascular: positive: Regular rate & rhythm Respiratory: negative: No respiratory distress (breathless with conversation) Abdomen: positive: Distended, Taut, Obese Skin: positive: Pallor, Dryness, Wound (left outer leg; dressing intact; trauma wound from scrape), Other (sallow) Extremities: positive: Pedal edema, Other (venuos stasis) Neurologic/Psychiatric: positive: Oriented x3, Weakness, Depressed mood/affect, Flat affect Palliative Care - POLST Patient has POLST: No POLST Status: Full Code Pain: Pain unchanged, Location (with "urinating" in day with nagy; low chronic back pain) Tiredness/Fatigue: Moderate (4-6) Drowsiness/Sedation: Moderate (4-6) Nausea: None Anorexia: Mild (1-3) Dyspnea: Moderate (4-6) Depression: Severe (7-10) Anxiety: Severe (7-10) Feelings of wellbeing/Perceived Quality of Life: Poor, Worsening Sleep: Sleep improved Performance Status: Patient still struggling with bed mobility, working with PT/OT. Is trying to do his exercises independently when not working with therapists. Is looking forward to continue to improve, is feeling somewhat depressed and withdrawn today, hoping paracentesis will help him be more comfortable and able to participate. - Palliative Care Discussion: Patient is very discouraged, did talk through just the logistics of coordination of care, hospitalization, and limitations given in the setting of the pandemic. He is feeling somewhat overwhelmed by that uncertainty, discussed currently fairly stable, goal is to get him as strong as possible, to have further work-up where can see specialist and get more concrete information and plan. Patient was goals are to become independent, and to return to her level of functioning to be able to support his mom, he does not want to be a burden. He has identified his mother Jonelle Durand [phone] as his DURABLE POWER OF ONLINE MERCHANDISING COORDINATOR, did discuss again possible CPR options. Currently at this moment he would accept it, but into the future if he continues to deteriorate he would want to be a DN AR. Did take a copy of notarized directive/DPOA for medical chart and NARGIS Goodman Results - Lab Results Lab results reviewed: Yes Fish Bones: 03/24/20 06:48 03/24/20 06:48 Lab and Imaging Results: Lab Results x24hrs 03/24/20 03/24/20 03/24/20 Range/Units 11:19 07:34 06:48 WBC 5.7 (4.8-10.8) x10^3/uL RBC 3.40 L (4.70-6.10) 10^6/uL Hgb 11.4 L (14.0-18.0) g/dL Hct 32.8 L (42.0-52.0) % MCV 96.5 H (80.0-94.0) fL MCH 33.5 H (27.0-31.0) pg MCHC 34.8 (32.0-36.0) g/dL RDW 13.5 (12.0-15.0) % Plt Count 146 (130-450) 10^3/uL MPV 10.2 (7.4-11.4) fL Neut # (Auto) 2.9 (1.5-6.6) 10^3/uL Lymph # (Auto) 1.3 L (1.5-3.5) 10^3/uL [place] # (Auto) 1.0 (0.0-1.0) 10^3/uL Eos # (Auto) 0.4 (0.0-0.7) 10^3/uL Baso # (Auto) 0.1 (0.0-0.1) 10^3/uL Absolute Nucleated RBC 0.00 x10^3/uL Nucleated RBC % 0.0 /100WBC Sodium (135-145) mmol/L Potassium (3.5-5.0) mmol/L Chloride (101-111) mmol/L Carbon Dioxide (21-32) mmol/L Anion Gap (6-13) BUN (6-20) mg/dL Creatinine (0.6-1.2) mg/dL Estimated GFR (MDRD) (>89) Glucose (70-100) mg/dL POC Whole Bld Glucose 255 H 190 H (70 - 100) mg/dL Calcium (8.5-10.3) mg/dL Total Bilirubin (0.2-1.0) mg/dL AST (10-42) IU/L ALT (10-60) IU/L Alkaline Phosphatase (42-121) IU/L Total Protein (6.7-8.2) g/dL Albumin (3.2-5.5) g/dL Globulin (2.1-4.2) g/dL Albumin/Globulin Ratio (1.0-2.2) 03/24/20 03/23/20 03/23/20 Range/Units 06:48 20:41 16:36 WBC (4.8-10.8) x10^3/uL RBC (4.70-6.10) 10^6/uL Hgb (14.0-18.0) g/dL Hct (42.0-52.0) % MCV (80.0-94.0) fL MCH (27.0-31.0) pg MCHC (32.0-36.0) g/dL RDW (12.0-15.0) % Plt Count (130-450) 10^3/uL MPV (7.4-11.4) fL Neut # (Auto) (1.5-6.6) 10^3/uL Lymph # (Auto) (1.5-3.5) 10^3/uL [place] # (Auto) (0.0-1.0) 10^3/uL Eos # (Auto) (0.0-0.7) 10^3/uL Baso # (Auto) (0.0-0.1) 10^3/uL Absolute Nucleated RBC x10^3/uL Nucleated RBC % /100WBC Sodium 130 L (135-145) mmol/L Potassium 4.0 (3.5-5.0) mmol/L Chloride 97 L (101-111) mmol/L Carbon Dioxide 25 (21-32) mmol/L Anion Gap 8.0 (6-13) BUN 33 H (6-20) mg/dL Creatinine 1.2 (0.6-1.2) mg/dL Estimated GFR (MDRD) 64 L (>89) Glucose 225 H (70-100) mg/dL POC Whole Bld Glucose 253 H 260 H (70 - 100) mg/dL Calcium 8.5 (8.5-10.3) mg/dL Total Bilirubin 2.4 H (0.2-1.0) mg/dL AST 40 (10-42) IU/L ALT 22 (10-60) IU/L Alkaline Phosphatase 74 (42-121) IU/L Total Protein 6.0 L (6.7-8.2) g/dL Albumin 2.4 L (3.2-5.5) g/dL Globulin 3.6 (2.1-4.2) g/dL Albumin/Globulin Ratio 0.7 L (1.0-2.2) Impression and Recommendations - Palliative Care Impression: This is a 49-year-old gentleman with now confirmed cirrhosis, needing continue work-up for identified nonspecific lesion, with worsening ascites awaiting paracentesis. Patient is feeling overwhelmed by his current condition, he remains quite deconditioned working with therapy, and is hoping to regain some independence. Awaiting SNF placement, with ultimate goal to discharge back home with support in place. Recommendations/Counseling Done: 1. Depression, uncontrolled. Patient has long-term been on current antidepressant, most likely has been self-medicating with alcohol. Patient is feeling somewhat overwhelmed, spent time providing counseling and support, anticipatory guidance, and reviewing current care plan including both limitations and workings of the current medical system. 2. Cirrhosis. Patient with worsening ascites, impacting functional status and comfort. Patient is due for paracentesis today, again education provided regarding weighing benefits and burdens of frequent paracentesis. We did discuss the reason for follow-up with PCP, is would on outpatient basis be on ordering procedure when appropriate. Reinforced need for abstinence, follow-up with specialist for further treatment planning, and need to focus on gaining strength and independence. Patient will not be a candidate for any procedures, and less baseline health improves. 3. Advanced care planning. Patient awaiting further information regarding prognostic factors, unfortunately this will most likely not unfold until further work-up regarding his cirrhosis/liver lesion. Patient goals are to continue to regain some independence, placement at SNF for rehab, and discharged home. Palliative care to continue provide support and follow-up returns to the home setting. Time Spent: 30 minutes with greater than 50% of this done in counseling regarding goals of care, symptom management, education on disease process and anticipatory guidance
[2020-03-24] MEDS: SODIUM CHLORIDE FLUSH 0.9% 10 ML SYRINGE IVP PRN (13:50)
[2020-03-24] MEDS ORDERED: ALBUMIN 25% 12.5 GM/50 ML VIAL IV STA (14:11)
--- NOTE | 2020-03-24 14:12 | PROVIDER PROGRESS NOTE ---
Assessment/Plan - Problem List (1) Ascites Assessment/Plan: 03-24 Patient reported he feels tired, He feel some shortness of breathing at night And needed some oxygen in the night, Abdomen become extended in the size again, he is very concerned for his ascites. pt is likely to have extended ascites which put on him some respiratory distress. Patient had a paracentesis 6 days ago, Plan to have paracentesis on today. Continue intravenous Lasix and spironolactone, order albumin IV, Continue vital signs and dairy and food laboratory assistant. 17, Patient is alert and orientated plus 4, Discussed with the patient for CAT scan of her abdomen, Which show There is a mass 2.6 cm size in his liver, Recommended to have MRI, MRI is ordered and result is pending. Social work was consulted for patient disposition. 03/22 Patient had medium size of Ascites, Patient does not need urgently for paracentesis now. Discussed with patient, he understand the benefit and the risk of Paracentesis. Patient is also pending on replacement, Continue to consult with social work. at this point we do not know what the time social service agency director could find a SNF for patient yet. We will continue monitor patient, we might have paracentesis for Patient before patient be discharged to the SNF. 03/21 Patient is alert orientated +4. Patient's abdomen did extend again. Patient had paracentesis 2 days ago. We will plan to have another Paracentesis on today by interventional radiologist. Patient had a low albumin, we will give the patient intravenous albumin protein. We will recheck PT and INR. Patient need frequently Paracentesis now. Patient had Meld score 15 With 6% mortality rate in 3-month. Discussed the care plan with patient, patient agree to have palliative care. Consult with palliative care. Patient also report he had GI appointment in April 03, He will discuss with his GI doctor for Possibility of liver transplant. We will continue give pt Lasix, diuretics, Close monitor patient vital signs. (2) Tachycardia Assessment/Plan: resolved (3) Anasarca Assessment/Plan: 03/22 stable and improved slight, However patient also show mild to moderate d ehydration. will continue Home medication: Lasix, continue home spironolactone, Hold intravenous Lasix and diuretic metolazone. (4) Scrotal edema Assessment/Plan: stable and slight improved. pain is improved. (5) Swelling of penis Assessment/Plan: 03/22 slight improved. He continues to need her chronic indwelling Blunt, add oxybutynin for her spasm and pain (6) Alcoholic liver disease Assessment/Plan: Patient denies alcohol withdrawal symptoms now. He reported he already stop drinking alcohol. He used to drink a 6-pack or more of beer a day. Continue vitamins and Thiamine orally. Advised patient follow-up with his GI appointment For further management his medication issue. (7) Weakness Assessment/Plan: 03-24 Patient presents today with fatigue and very weakness, We will continue PT, PT recommended patient be DC to SNF For more training, Social work was consulted for patient disposition. 17Improved per Physical therapist report, Continue PT and OT Patient Still present weakness. PT and OT evaluated and treated patient, re commend patient discharged SNF. Consult social work for safely disposition. (8) Hyponatremia Assessment/Plan: 03/24 Sodium is 130 on today, Reduced from previous 134, Is likely This is likely hypervolemic hyponatremia, will add IV of Lasix and continue spironolactone, Continue dairy and food laboratory assistant Sodium is 134 today, nearly resolved. This is likely hypervolemic hyponatremia. He has already been instituted on a total fluid/day restriction. We will continue Lasix diuretics, Continue I&O Follow BMP daily. (9) Diabetes mellitus, insulin dependent (IDDM), uncontrolled Assessment/Plan: 03/24 increase night Lantus to 35 unit and add tid Novolog since glucose is still over 200 03/23 Patient actually take Lantus 65 Unit in the Home. Patient sugar is still over 200, We will add 30 units Lantus insulin In the night, Continue sliding- scale 03/22 Patient still has over 200 glucose level. We will check A1c, We will increas e to 20 units Lantus in the night, continue sliding scale, And Novolog 5 units 3 times daily before the meal (10) Hx of essential hypertension Assessment/Plan: stable, continue home meds (11) Chronic low back pain Assessment/Plan: continue pain control, continue lidocaine patch topical. His current goals are to get stronger, be able to take care of himself again, and be able to return home. He is awaiting SNF placement, (12) chronic urinary Blunt catheter Patient has urinary retention plus swelling of the penis, Continue Blunt catheter, Continue catheter care (13) functional decline Patient present recently function significantly declined, Plus anasarca, signi ficant edema, with ascites, Patient now need paracentesis. Consult with palliative care, advised patient follow-up palliative care (14)Dehydration 1-7, Creatinine is reduced to 1, Continue home medication Lasix and splironolactone, Continue dairy and food laboratory assistant 03/22 21Today patient present clinically some dehydration, creatine and BUN had slightly elevated. We will hold intravenous Lasix and diuretics, resume home oral Lasix and splironolactone, Removal of fluids restriction. Continue dairy and food laboratory assistant - Current Meds Current Meds: Current Medications Generic Name Dose Route Start Last Admin Trade Name Freq PRN Reason Stop Dose Admin Albuterol 2.5 mg 03/20/20 17:46 03/20/20 18:00 Albuterol Neb 2.5 Mg/3 Ml INH 2.5 mg RTQ4H PRN Administration Wheezing Bupropion HCl 150 mg 03/22/20 09:00 03/24/20 08:53 Bupropion Sr 150 Mg Tablet PO 150 mg BID JOY Administration Famotidine 20 mg 03/18/20 21:00 03/24/20 08:53 Famotidine 20 Mg Tablet PO 20 mg BID JOY Administration Furosemide 40 mg 03/24/20 08:00 03/24/20 13:50 Furosemide 40 Mg/4 Ml Vial IVP 40 mg BIDDIURETIC JOY Administration Insulin Aspart 3 - 11 unit 03/20/20 17:00 03/24/20 11:58 Insulin Aspart 300 Unit/3 Ml Pen SUBQ 7 unit 0800,1200,1700,2100 JOY Administration Protocol Insulin Aspart 8 unit 03/24/20 08:00 03/24/20 11:59 Insulin Aspart 300 Unit/3 Ml Pen SUBQ 8 unit TIDWM JOY Administration Protocol Lidocaine 1 patch 03/20/20 16:54 03/24/20 08:14 Lidocaine Patch 5% TOP 1 patch DAILY PRN Administration PAIN Metoprolol Succinate 25 mg 03/19/20 09:00 03/24/20 08:53 Metoprolol Succinate 25 Mg Tablet PO 25 mg BID JOY Administration Multivitamins/Minerals 1 tab 03/22/20 09:00 03/24/20 08:53 Multivitamin W/Minerals Tablet PO 1 tab DAILY JOY Administration Oxybutynin Chloride 5 mg 03/21/20 21:00 03/24/20 08:53 Oxybutynin 5mg Tablet PO 5 mg BID JOY Administration Sodium Chloride 10 ml 03/18/20 16:09 03/24/20 13:50 Sodium Chloride Flush 0.9% 10 Ml Syringe IVP 10 ml PRN PRN Administration NEEDED PER PROVIDER ORDERS Sodium Chloride 10 ml 03/18/20 17:00 03/24/20 08:13 Sodium Chloride Flush 0.9% 10 Ml Syringe IVP 10 ml 0100,0900,1700 JOY Administration Spironolactone 75 mg 03/22/20 09:00 03/24/20 08:53 Spironolactone 25 Mg Tablet PO 75 mg BID JOY Administration Thiamine HCl 100 mg 03/21/20 09:00 03/24/20 08:53 Thiamine 100 Mg Tablet PO 100 mg DAILY JOY Administration - Lab Result Fish Bone Diagrams: 03/24/20 06:48 03/24/20 06:48 - Additional Planning My Orders: My Active Orders 03/24/20 07:41 Abdominal Paracentesis [US] Stat 03/24/20 08:00 FUROSEMIDE INJ 40mg VIAL [LASIX INJ 40 mg VIAL] 40 mg IVP BIDDIURETIC Insulin Aspart [NovoLOG] 8 unit SUBQ TIDWM 03/24/20 21:00 Insulin Glargine [Lantus Solostar] 35 unit SUBQ QPM 03/25/20 05:00 CBC - COMP BLD CT W/AUTO DIFF [HEME] DAILYLAB CMP [COMPREHENSIVE METABOLIC PANEL] [CHEM] DAILYLAB 03/26/20 05:00 CBC - COMP BLD CT W/AUTO DIFF [HEME] DAILYLAB CMP [COMPREHENSIVE METABOLIC PANEL] [CHEM] DAILYLAB 03/27/20 05:00 CBC - COMP BLD CT W/AUTO DIFF [HEME] DAILYLAB 03/28/20 05:00 CBC - COMP BLD CT W/AUTO DIFF [HEME] DAILYLAB 03/29/20 05:00 CBC - COMP BLD CT W/AUTO DIFF [HEME] DAILYLAB Subjective - Subjective Patient Reports: Fatigue Objective Vital Signs: Vital Signs - 24 hr 03/23/20 03/23/20 03/23/20 15:51 20:45 21:10 Temperature 36.6 C 36.8 C Heart Rate 84 Heart Rate [ 109 H 84 Brachial] Respiratory 16 16 16 Rate Blood Pressure 111/65 93/59 L [Right Brachial artery] O2 Saturation 95 95 03/23/20 03/24/20 03/24/20 23:33 05:00 07:37 Temperature 37.3 C 36.5 C 37.1 C Heart Rate Heart Rate [ 84 90 95 Brachial] Respiratory 18 15 18 Rate Blood Pressure 109/65 115/83 H 129/72 [Right Brachial artery] O2 Saturation 96 98 98 03/24/20 11:24 Temperature 37 C Heart Rate Heart Rate [ 87 Brachial] Respiratory 20 Rate Blood Pressure 118/67 [Right Brachial artery] O2 Saturation 97 Oxygen O2 Source Room air I&O (Last 24 Hrs): Intake and Output Totals x24h 03/22/20 03/23/20 03/24/20 23:59 23:59 23:59 Intake Total 1332 2120 1070 Output Total 1925 1300 1050 Balance -593 820 20 General: Alert, Oriented x3, Mild distress HEENT: Atraumatic Neck: Supple Lymphatic: no adenopathy Neuro: Alert, Non Focal, Oriented Times 3 Cardiovascular: Regular rate, Normal S1, Normal S2 Respiratory: Chest non-tender, Breath sounds nml Abdomen: Normal bowel sounds, Soft Extremities: Normal pulses Skin: No breakdown - Results Results: Laboratory Results WBC 5.7 x10^3/uL (4.8-10.8) 03/24/20 06:48 RBC 3.40 10^6/uL (4.70-6.10) L 03/24/20 06:48 Hgb 11.4 g/dL (14.0-18.0) L 03/24/20 06:48 Hct 32.8 % (42.0-52.0) L 03/24/20 06:48 MCV 96.5 fL (80.0-94.0) H 03/24/20 06:48 MCH 33.5 pg (27.0-31.0) H 03/24/20 06:48 MCHC 34.8 g/dL (32.0-36.0) 03/24/20 06:48 RDW 13.5 % (12.0-15.0) 03/24/20 06:48 Plt Count 146 10^3/uL (130-450) 03/24/20 06:48 MPV 10.2 fL (7.4-11.4) 03/24/20 06:48 Neut # (Auto) 2.9 10^3/uL (1.5-6.6) 03/24/20 06:48 Lymph # (Auto) 1.3 10^3/uL (1.5-3.5) L 03/24/20 06:48 [place] # (Auto) 1.0 10^3/uL (0.0-1.0) 03/24/20 06:48 Eos # (Auto) 0.4 10^3/uL (0.0-0.7) 03/24/20 06:48 Baso # (Auto) 0.1 10^3/uL (0.0-0.1) 03/24/20 06:48 Absolute Nucleated RBC 0.00 x10^3/uL 03/24/20 06:48 Nucleated RBC % 0.0 /100WBC 03/24/20 06:48 PT 15.0 secs (9.9-12.6) H 03/21/20 12:35 INR 1.4 (0.8-1.2) H 03/21/20 12:35 Sodium 130 mmol/L (135-145) L 03/24/20 06:48 Potassium 4.0 mmol/L (3.5-5.0) 03/24/20 06:48 Chloride 97 mmol/L (101-111) L 03/24/20 06:48 Carbon Dioxide 25 mmol/L (21-32) 03/24/20 06:48 Anion Gap 8.0 (6-13) 03/24/20 06:48 BUN 33 mg/dL (6-20) H 03/24/20 06:48 Creatinine 1.2 mg/dL (0.6-1.2) 03/24/20 06:48 Estimated GFR (MDRD) 64 (>89) L 03/24/20 06:48 Glucose 225 mg/dL (70-100) H 03/24/20 06:48 POC Whole Bld Glucose 255 mg/dL (70 - 100) H 03/24/20 11:19 Estimat Average Glucose 157 mg/dL (70-100) H 03/21/20 07:14 Hemoglobin A1c % 7.1 % (4.27-6.07) H 03/21/20 07:14 Calcium 8.5 mg/dL (8.5-10.3) 03/24/20 06:48 Magnesium 1.7 mg/dL (1.7-2.8) 03/20/20 09:40 Total Bilirubin 2.4 mg/dL (0.2-1.0) H 03/24/20 06:48 AST 40 IU/L (10-42) 03/24/20 06:48 ALT 22 IU/L (10-60) 03/24/20 06:48 Alkaline Phosphatase 74 IU/L (42-121) 03/24/20 06:48 B-Natriuretic Peptide 42 pg/mL (5-100) 03/18/20 13:54 Total Protein 6.0 g/dL (6.7-8.2) L 03/24/20 06:48 Albumin 2.4 g/dL (3.2-5.5) L 03/24/20 06:48 Globulin 3.6 g/dL (2.1-4.2) 03/24/20 06:48 Albumin/Globulin Ratio 0.7 (1.0-2.2) L 03/24/20 06:48 Lipase 74 U/L (22-51) H 03/18/20 13:54 Nasal Adenovirus (PCR) NOT DETECTED 03/18/20 15:55 Nasal B. parapertussis DNA (PCR) NOT DETECTED 03/18/20 15:55 Nasal Coronavir 229E PCR NOT DETECTED 03/18/20 15:55 Nasal Coronavir HKU1 PCR NOT DETECTED 03/18/20 15:55 Nasal Coronavir NL63 PCR NOT DETECTED 03/18/20 15:55 Nasal Coronavir OC43 PCR NOT DETECTED 03/18/20 15:55 Nasal Enterovir/Rhinovir PCR NOT DETECTED 03/18/20 15:55 Nasal Influenza B PCR NOT DETECTED 03/18/20 15:55 Nasal Influenza A PCR NOT DETECTED 03/18/20 15:55 Nasal Parainfluen 1 PCR NOT DETECTED 03/18/20 15:55 Nasal Parainfluen 2 PCR NOT DETECTED 03/18/20 15:55 Nasal Parainfluen 3 PCR NOT DETECTED 03/18/20 15:55 Nasal Parainfluen 4 PCR NOT DETECTED 03/18/20 15:55 Nasal RSV (PCR) NOT DETECTED 03/18/20 15:55 Nasal B.pertussis DNA PCR NOT DETECTED 03/18/20 15:55 Nasal C.pneumoniae (PCR) NOT DETECTED 03/18/20 15:55 Natanael Human Metapneumo PCR NOT DETECTED 03/18/20 15:55 Nasal M.pneumoniae (PCR) NOT DETECTED 03/18/20 15:55 Nasal SARS-CoV-2 (PCR) NOT DETECTED 03/18/20 15:55 Urine Opiates Screen POSITIVE (NEGATIVE) H 03/18/20 16:19 Ur Oxycodone Screen NEGATIVE (NEGATIVE) 03/18/20 16:19 Urine Methadone Screen NEGATIVE (NEGATIVE) 03/18/20 16:19 Ur Propoxyphene Screen NEGATIVE (NEGATIVE) 03/18/20 16:19 Ur Barbiturates Screen NEGATIVE (NEGATIVE) 03/18/20 16:19 Ur Tricyclics Screen NEGATIVE (NEGATIVE) 03/18/20 16:19 Ur Phencyclidine Scrn NEGATIVE (NEGATIVE) 03/18/20 16:19 Ur Amphetamine Screen NEGATIVE (NEGATIVE) 03/18/20 16:19 U Methamphetamines Scrn NEGATIVE (NEGATIVE) 03/18/20 16:19 U Benzodiazepines Scrn POSITIVE (NEGATIVE) H 03/18/20 16:19 Urine Cocaine Screen NEGATIVE (NEGATIVE) 03/18/20 16:19 U Cannabinoids Screen NEGATIVE (NEGATIVE) 03/18/20 16:19 Ethyl Alcohol < 5.0 mg/dL 03/18/20 13:54 Coronavirus (PCR) NEGATIVE 03/21/20 15:05 - Procedures Procedures: Procedures DRAINAGE OF PERITONEAL CAVITY, PERCUTANEOUS APPROACH (02/15/20) ABX Reporting Has patient been on IV antibiotics over the past 48 hours?: No Current Medications - Current Medications Current Medications: Active Medications Albuterol (Albuterol Neb 2.5 Mg/3 Ml) 2.5 mg INH RTQ4H PRN PRN Reason: Wheezing Last Admin: 03/20/20 18:00 Dose: 2.5 mg Documented by: Bupropion HCl (Bupropion Sr 150 Mg Tablet) 150 mg PO BID [facility] Last Admin: 03/24/20 08:53 Dose: 150 mg Documented by: Famotidine (Famotidine 20 Mg Tablet) 20 mg PO BID JOY Last Admin: 03/24/20 08:53 Dose: 20 mg Documented by: Furosemide (Furosemide 40 Mg/4 Ml Vial) 40 mg IVP BIDDIURETIC JOY Last Admin: 03/24/20 13:50 Dose: 40 mg Documented by: Albumin Human (Albuminar-25) 12.5 gm in 50 mls @ 50 mls/hr IV ONCE STA Stop: 03/24/20 15:10 Insulin Aspart (Insulin Aspart 300 Unit/3 Ml Pen) 3 - 11 unit SUBQ 0800,1200,1700,2100 [facility]; Protocol Last Admin: 03/24/20 11:58 Dose: 7 unit Documented by: Insulin Aspart (Insulin Aspart 300 Unit/3 Ml Pen) 8 unit SUBQ TIDWM [facility]; Protocol Last Admin: 03/24/20 11:59 Dose: 8 unit Documented by: Insulin Glargine (Insulin Glargine 300 Unit/3 Ml Pen) 35 unit SUBQ QPM [facility] Lidocaine (Lidocaine Patch 5%) 1 patch TOP DAILY PRN PRN Reason: PAIN Last Admin: 03/24/20 08:14 Dose: 1 patch Documented by: Metoprolol Succinate (Metoprolol Succinate 25 Mg Tablet) 25 mg PO BID [facility] Last Admin: 03/24/20 08:53 Dose: 25 mg Documented by: Multivitamins/Minerals (Multivitamin W/Minerals Tablet) 1 tab PO DAILY [facility] Last Admin: 03/24/20 08:53 Dose: 1 tab Documented by: Oxybutynin Chloride (Oxybutynin 5mg Tablet) 5 mg PO BID [facility] Last Admin: 03/24/20 08:53 Dose: 5 mg Documented by: Sodium Chloride (Sodium Chloride Flush 0.9% 10 Ml Syringe) 10 ml IVP PRN PRN PRN Reason: NEEDED PER PROVIDER ORDERS Last Admin: 03/24/20 13:50 Dose: 10 ml Documented by: Sodium Chloride (Sodium Chloride Flush 0.9% 10 Ml Syringe) 10 ml IVP 0100,0900,1700 [facility] Last Admin: 03/24/20 08:13 Dose: 10 ml Documented by: Spironolactone (Spironolactone 25 Mg Tablet) 75 mg PO BID [facility] Last Admin: 03/24/20 08:53 Dose: 75 mg Documented by: Thiamine HCl (Thiamine 100 Mg Tablet) 100 mg PO DAILY [facility] Last Admin: 03/24/20 08:53 Dose: 100 mg Documented by: Atorvastatin [Lipitor] 40 mg PO QPM 08/17/14 Albuterol Sulfate [Proair Hfa Inhaler] 1 - 2 puffs INH Q4H PRN 11/13/16 Aspirin [Adult Low Dose Aspirin EC] 81 mg PO DAILY 11/13/16 Insulin Glargine,Hum.rec.anlog [Basaglar Kwikpen U-100] 65 units SUBQ DAILY PM 11/13/16 Insulin Regular, Human [Humulin R] 15 - 30 units SUBQ TIDWM 11/13/16 Fluticasone Propionate [Flovent Diskus] 1 puffs IH DAILY 02/15/20 Metoprolol Tartrate [Lopressor] 25 mg PO BID 02/15/20 Multivitamin W/Minerals [Theragran M] 1 tab PO DAILY 02/15/20 buPROPion HCL [Bupropion HCl Sr] 150 mg PO BID 02/15/20 Losartan Potassium [Cozaar] 100 mg PO DAILY 03/18/20
--- NOTE | 2020-03-24 16:59 | Ultrasound Report ---
PROCEDURE: Abdominal Paracentesis INDICATIONS: extended abdomen, cause short of breath TECHNIQUE: The indications, alternatives, benefits, risks, and complications of the procedure were explained to the patient. Written informed consent was obtained and placed in the chart. The abdomen and pelvis were examined sonographically, and an appropriate site was chosen for paracentesis. The skin was pre pared and draped in the usual sterile fashion, and 1% lidocaine was infiltrated from the skin down th rough the peritoneal surface. A 19-gauge catheter-covered needle was then introduced into the perito valerie space, the catheter was advanced and the needle was withdrawn, and thereafter peritoneal fluid w as withdrawn. The catheter was then removed and a dressing was applied. The fluid was discarded if the clinician did not order diagnostic testing of the fluid. COMPARISON: Prior CT evaluation of the abdomen/pelvis and also prior abdominal ultrasounds studies i ncluding paracentesis procedures reviewed. FINDINGS: Access site: Left lateral abdomen/pelvis junction body wall Needle: One-Step centesis catheter with introducer needle. Fluid volume and description: 13 L mildly serosanguineous turbid fluid, without internal blood clots . Fluid sent for diagnostic testing: Not requested Medications: 1% lidocaine for local anaesthesia. Complications: None. IMPRESSION: 13 L paracentesis. The patient tolerated this procedure well without complaint or complication. Post procedural albumin administration will be performed by the hospital staff. Reviewed by: Emeka Nuñez MD on 03/24/2020 4:58 PM PST Approved by: Emeka Nuñez MD on 03/24/2020 4:58 PM PST Station ID: [id number]
[2020-03-24] MEDS: INSULIN GLARGINE 300 UNIT/3 ML PEN SUBQ SCH (20:59)
[2020-03-25] MEDS: SODIUM CHLORIDE FLUSH 0.9% 10 ML SYRINGE IVP SCH ×3 (00:04→16:58)
[2020-03-25] MEDS: FUROSEMIDE 40 MG/4 ML VIAL IVP SCH ×2 (05:20→13:24)
[2020-03-25 06:22] LABS: BASOPHILS # (AUTO) 0.1 10^3/uL (0.0-0.1); BASOPHILS % (AUTO) 1.7 %; EOSINOPHILS # (AUTO) 0.4 10^3/uL (0.0-0.7); EOSINOPHILS % (AUTO) 5.4 %; HGB - HEMOGLOBIN 11.4 g/dL (14.0-18.0); LYMPHOCYTES # (AUTO) 1.3 10^3/uL (1.5-3.5); LYMPHOCYTES % (AUTO) 18.8 %; MEAN CORPUSCULAR HEMOGLOBIN 33.2 pg (27.0-31.0); MEAN CORPUSCULAR HGB CONC 34.1 g/dL (32.0-36.0); MEAN CORPUSCULAR VOLUME 97.4 fL (80.0-94.0); MEAN PLATELET VOLUME 10.3 fL (7.4-11.4); MONOCYTES % (AUTO) 14.8 %; NEUTROPHILS # (AUTO) 4.2 10^3/uL (1.5-6.6); NEUTROPHILS % (AUTO) 58.9 %; PLT - PLATELET COUNT 144 10^3/uL (130-450); RED BLOOD COUNT 3.43 10^6/uL (4.70-6.10); RED CELL DISTRIBUTION WIDTH 13.5 % (12.0-15.0)
[2020-03-25 06:34] LABS: ALBUMIN 2.2 g/dL (3.2-5.5); ALBUMIN/GLOBULIN RATIO 0.7 (1.0-2.2); CALCIUM 8.2 mg/dL (8.5-10.3); CREATININE 1.1 mg/dL (0.6-1.2); TOTAL PROTEIN 5.2 g/dL (6.7-8.2)
[2020-03-25] MEDS: LIDOCAINE PATCH 5% TOP PRN (08:14)
[2020-03-25] MEDS: INSULIN ASPART 300 UNIT/3 ML PEN SUBQ SCH ×7 (08:18→21:09)
[2020-03-25] MEDS: buPROPion SR 150 MG TABLET PO SCH ×2 (08:21→21:08)
[2020-03-25] MEDS: THIAMINE 100 MG TABLET PO SCH (08:21)
[2020-03-25] MEDS: FAMOTIDINE 20 MG TABLET PO SCH ×2 (08:21→21:08)
[2020-03-25] MEDS: MULTIVITAMIN W/MINERALS TABLET PO SCH (08:21)
[2020-03-25] MEDS: OXYBUTYNIN 5MG TABLET PO SCH ×2 (08:22→21:08)
[2020-03-25] MEDS: SPIRONOLACTONE 25 MG TABLET PO SCH ×2 (08:22→21:08)
[2020-03-25] MEDS: METOPROLOL SUCCINATE 25 MG TABLET PO SCH ×2 (08:23→21:08)
[2020-03-25] MEDS: ACETAMINOPHEN/CODEINE 300 MG/30 MG TABLET PO PRN (12:48)
[2020-03-25] MEDS: BENZOCAINE/MENTHOL LOZENGE MM PRN (13:24)
[2020-03-25] MEDS: SODIUM CHLORIDE FLUSH 0.9% 10 ML SYRINGE IVP PRN (13:24)
--- NOTE | 2020-03-25 15:06 | PROVIDER PROGRESS NOTE ---
Subjective - Prog Note Date Prog Note Date: 03/25/20 Prog Note Time: 15:08 - Subjective Subjective: He felt better yesterday. But between yesterday and today the edema in his abdomen or tenseness in his abdomen is starting to slowly come back. He is irri tated that dinner is not being served at 3 PM. Current Medications - Current Medications Current Medications: Active Medications Acetaminophen/Codeine Phosphate (Acetaminophen/Codeine 300 Mg/30 Mg Tablet) 1 tab PO Q4HR PRN PRN Reason: Cough Last Admin: 03/25/20 12:48 Dose: 1 tab Documented by: Albuterol (Albuterol Neb 2.5 Mg/3 Ml) 2.5 mg INH RTQ4H PRN PRN Reason: Wheezing Last Admin: 03/20/20 18:00 Dose: 2.5 mg Documented by: Bupropion HCl (Bupropion Sr 150 Mg Tablet) 150 mg PO BID [facility] Last Admin: 03/25/20 08:21 Dose: 150 mg Documented by: Famotidine (Famotidine 20 Mg Tablet) 20 mg PO BID [facility] Last Admin: 03/25/20 08:21 Dose: 20 mg Documented by: Furosemide (Furosemide 40 Mg/4 Ml Vial) 40 mg IVP BIDDIURETIC [facility] Last Admin: 03/25/20 13:24 Dose: 40 mg Documented by: Insulin Aspart (Insulin Aspart 300 Unit/3 Ml Pen) 3 - 11 unit SUBQ 0800,1200,1700,2100 [facility]; Protocol Last Admin: 03/25/20 12:49 Dose: 7 unit Documented by: Insulin Aspart (Insulin Aspart 300 Unit/3 Ml Pen) 8 unit SUBQ TIDWM [facility]; Protocol Last Admin: 03/25/20 12:49 Dose: 8 unit Documented by: Insulin Glargine (Insulin Glargine 300 Unit/3 Ml Pen) 35 unit SUBQ QPM [facility] Last Admin: 03/24/20 20:59 Dose: 35 unit Documented by: Lidocaine (Lidocaine Patch 5%) 1 patch TOP DAILY PRN PRN Reason: PAIN Last Admin: 03/25/20 08:14 Dose: 1 patch Documented by: Metoprolol Succinate (Metoprolol Succinate 25 Mg Tablet) 25 mg PO BID [facility] Last Admin: 03/25/20 08:23 Dose: Not Given Documented by: Multivitamins/Minerals (Multivitamin W/Minerals Tablet) 1 tab PO DAILY [facility] Last Admin: 03/25/20 08:21 Dose: 1 tab Documented by: Oxybutynin Chloride (Oxybutynin 5mg Tablet) 5 mg PO BID [facility] Last Admin: 03/25/20 08:22 Dose: 5 mg Documented by: Sodium Chloride (Sodium Chloride Flush 0.9% 10 Ml Syringe) 10 ml IVP PRN PRN PRN Reason: NEEDED PER PROVIDER ORDERS Last Admin: 03/25/20 13:24 Dose: 10 ml Documented by: Sodium Chloride (Sodium Chloride Flush 0.9% 10 Ml Syringe) 10 ml IVP 0100,0900,1700 [facility] Last Admin: 03/25/20 08:17 Dose: 10 ml Documented by: Spironolactone (Spironolactone 25 Mg Tablet) 75 mg PO BID [facility] Last Admin: 03/25/20 08:22 Dose: 75 mg Documented by: Thiamine HCl (Thiamine 100 Mg Tablet) 100 mg PO DAILY [facility] Last Admin: 03/25/20 08:21 Dose: 100 mg Documented by: Throat Lozenges (Benzocaine/Menthol Lozenge) 1 lozenge MM Q2HR PRN PRN Reason: Throat pain Last Admin: 03/25/20 13:24 Dose: 1 lozenge Documented by: Atorvastatin [Lipitor] 40 mg PO QPM 08/17/14 Albuterol Sulfate [Proair Hfa Inhaler] 1 - 2 puffs INH Q4H PRN 11/13/16 Aspirin [Adult Low Dose Aspirin EC] 81 mg PO DAILY 11/13/16 Insulin Glargine,Hum.rec.anlog [Basaglar Kwikpen U-100] 65 units SUBQ DAILY PM 11/13/16 Insulin Regular, Human [Humulin R] 15 - 30 units SUBQ TIDWM 11/13/16 Fluticasone Propionate [Flovent Diskus] 1 puffs IH DAILY 02/15/20 Metoprolol Tartrate [Lopressor] 25 mg PO BID 02/15/20 Multivitamin W/Minerals [Theragran M] 1 tab PO DAILY 02/15/20 buPROPion HCL [Bupropion HCl Sr] 150 mg PO BID 02/15/20 Losartan Potassium [Cozaar] 100 mg PO DAILY 03/18/20 Objective - Vital Signs/Intake & Output Reviewed Vital Signs: Yes Vital Signs: Vital Signs x48h Temp Pulse Resp BP Pulse Ox 03/25/20 11:29 37.3 C 80 18 108/65 93 03/25/20 07:26 37.3 C 83 18 99/59 L 98 Intake & Output: Intake & Output 03/22/20 03/23/20 03/24/20 03/25/20 23:59 23:59 23:59 23:59 Intake Total 1332 2120 1120 2072 Output Total 1925 1300 1900 1225 Balance -593 820 -780 847 - Objective General Appearance: positive: No acute distress, Alert, Other (5 foot 10 inch male who weighs 121.5 kg. His weight on admission was 138 kg.) Eyes Bilateral: positive: PERRL Neck: negative: Stiff neck Respiratory: positive: No respiratory distress, Other (Dull bases and diminished breath sounds at bases. As he struggles to get up out of bed to sit up and stand he gets tachypneic. It quickly resolves once he does not have to struggle). negative: Wheezes, Rales, Rhonchi Cardiovascular: positive: Regular rate & rhythm, Systolic murmur. negative: Gallop/S4, Friction rub Abdomen: positive: Other (Huge abdominal pannus, mild Deanna intertrigo. Mild generalized tenderness. Hypoactive bowel sounds. Right now there is no fluid wave palpable.) Skin: positive: Warm, Dry, Pallor Extremities: positive: Full ROM, Pedal edema Neurologic/Psychiatric: positive: Oriented x3, CN's nml (2-12), Motor nml - Lab Results Fish Bones: 03/25/20 06:10 03/25/20 06:10 Other Labs: Lab Results x24hrs 03/25/20 03/25/20 03/25/20 Range/Units 11:21 07:19 06:10 WBC 7.0 (4.8-10.8) x10^3/uL RBC 3.43 L (4.70-6.10) 10^6/uL Hgb 11.4 L (14.0-18.0) g/dL Hct 33.4 L (42.0-52.0) % MCV 97.4 H (80.0-94.0) fL MCH 33.2 H (27.0-31.0) pg MCHC 34.1 (32.0-36.0) g/dL RDW 13.5 (12.0-15.0) % Plt Count 144 (130-450) 10^3/uL MPV 10.3 (7.4-11.4) fL Neut # (Auto) 4.2 (1.5-6.6) 10^3/uL Lymph # (Auto) 1.3 L (1.5-3.5) 10^3/uL [place] # (Auto) 1.0 (0.0-1.0) 10^3/uL Eos # (Auto) 0.4 (0.0-0.7) 10^3/uL Baso # (Auto) 0.1 (0.0-0.1) 10^3/uL Absolute Nucleated RBC 0.00 x10^3/uL Nucleated RBC % 0.0 /100WBC Sodium (135-145) mmol/L Potassium (3.5-5.0) mmol/L Chloride (101-111) mmol/L Carbon Dioxide (21-32) mmol/L Anion Gap (6-13) BUN (6-20) mg/dL Creatinine (0.6-1.2) mg/dL Estimated GFR (MDRD) (>89) Glucose (70-100) mg/dL POC Whole Bld Glucose 234 H 181 H (70 - 100) mg/dL Calcium (8.5-10.3) mg/dL Total Bilirubin (0.2-1.0) mg/dL AST (10-42) IU/L ALT (10-60) IU/L Alkaline Phosphatase (42-121) IU/L Total Protein (6.7-8.2) g/dL Albumin (3.2-5.5) g/dL Globulin (2.1-4.2) g/dL Albumin/Globulin Ratio (1.0-2.2) 03/25/20 03/24/20 03/24/20 Range/Units 06:10 20:33 16:33 WBC (4.8-10.8) x10^3/uL RBC (4.70-6.10) 10^6/uL Hgb (14.0-18.0) g/dL Hct (42.0-52.0) % MCV (80.0-94.0) fL MCH (27.0-31.0) pg MCHC (32.0-36.0) g/dL RDW (12.0-15.0) % Plt Count (130-450) 10^3/uL MPV (7.4-11.4) fL Neut # (Auto) (1.5-6.6) 10^3/uL Lymph # (Auto) (1.5-3.5) 10^3/uL [place] # (Auto) (0.0-1.0) 10^3/uL Eos # (Auto) (0.0-0.7) 10^3/uL Baso # (Auto) (0.0-0.1) 10^3/uL Absolute Nucleated RBC x10^3/uL Nucleated RBC % /100WBC Sodium 130 L (135-145) mmol/L Potassium 4.3 (3.5-5.0) mmol/L Chloride 100 L (101-111) mmol/L Carbon Dioxide 24 (21-32) mmol/L Anion Gap 6.0 (6-13) BUN 31 H (6-20) mg/dL Creatinine 1.1 (0.6-1.2) mg/dL Estimated GFR (MDRD) 71 L (>89) Glucose 197 H (70-100) mg/dL POC Whole Bld Glucose 291 H 295 H (70 - 100) mg/dL Calcium 8.2 L (8.5-10.3) mg/dL Total Bilirubin 2.0 H (0.2-1.0) mg/dL AST 39 (10-42) IU/L ALT 19 (10-60) IU/L Alkaline Phosphatase 69 (42-121) IU/L Total Protein 5.2 L (6.7-8.2) g/dL Albumin 2.2 L (3.2-5.5) g/dL Globulin 3.0 (2.1-4.2) g/dL Albumin/Globulin Ratio 0.7 L (1.0-2.2) Assessment/Plan - Problem List (1) End stage liver disease Impression: This unfortunate gentleman has a history of 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 Most recent CT scan shows him to have an indeterminate hypodense lesion in the right lobe of the liver that is 2.6 cm big. Further evaluation with a multiphase MRI would be recommended but he cannot fit in the MRI machine due to his size. He was admitted because of increased anasarca, orthopnea. This was on March 18. This is a second admission where he was here in February 2020 for the same thing. He is on Lasix 40 mg twice daily spironolactone 75 mg p.o. twice daily. He is also had paracentesis on March 19 and March 24. With the most recent one he had 13 L removed. Conversation with the patient today. We were going over his studies, his ideas about what was going on, and if he had any further questions about his palliative care consultation. During the conversation the patient was startled when I reiterated that he had end-stage liver disease. He states that the nurse practitioner Scott had told him that he had a poor prognosis and possibly less than 6 months of life left. He did not believe the nurse practitioner so was dismayed when I reiterated the same prognosis. "This is some serious shit! Now I have phone calls to make." He would like to call his mom. He would like to move forward with being seen by GI at liver clinic and a liver transplant team. I did explain that most team is required him to be clean and sober for a minimum of 6 months. (2) Anasarca Impression: He tells me that his ascites is coming back. Even in the 24 hours between yesterday and today it is getting worse. Scrotal edema is about the same. Leg edema is about the same. Continue Lasix, spironolactone. Blood pressure is already low at 99-108 systolic. I hesitate to add a beta-geovanna. Plan: I will make contact with liver transplant team or end-stage liver disease team at via midline consult. See if there is anything else I can change for his management. (3) Generalized weakness Impression: He has ascites, anasarca, scrotal edema and his penis has disappeared. Very difficult to mobilize. He has been spending more more time sedentary. As such he has developed some moderate generalized weakness. During the stay he has been seen by physical therapy. He is slowly improving. At this time they are [facility] for [facility] and rehab. They will continue to see him while he is here awaiting placement. (4) Hyponatremia Assessment/Plan: This patient started at 137. He has been gradually going down and has been stable at 130. He has had hyponatremia off and on during his admissions. All having to do with his ascites. We will continue to monitor. Most likely hyper volemic hyponatremia (5) Diabetes mellitus, insulin dependent (IDDM), uncontrolled Assessment/Plan: He has gone from 20 units of Lantus, to 30 units of Lantus, and yesterday was increased to 35 units of Lantus. Fixed dose NovoLog before meals was added yesterday. Glucose today is 181 and 234. Plan: increased fixed dose of insulin and continue SS insulin (6) Hx of essential hypertension Assessment/Plan: His blood pressure has been on the low side. Cozaar is being held from home. He is only the metoprolol and diuretics. (7) Chronic low back pain Assessment/Plan: continue pain control, continue lidocaine patch topical. His current goals are to get stronger, be able to take care of himself again, and be able to return home. He is awaiting SNF placement, (8) chronic urinary Blunt catheter Patient has urinary retention plus swelling of the penis, Continue Blunt catheter, Continue catheter care
[2020-03-25] MEDS: INSULIN GLARGINE 300 UNIT/3 ML PEN SUBQ SCH (21:08)
[2020-03-26] MEDS: SODIUM CHLORIDE FLUSH 0.9% 10 ML SYRINGE IVP SCH ×3 (00:08→16:50)
[2020-03-26] MEDS: ACETAMINOPHEN/CODEINE 300 MG/30 MG TABLET PO PRN ×3 (00:09→11:56)
[2020-03-26] MEDS: FUROSEMIDE 40 MG/4 ML VIAL IVP SCH ×2 (05:09→12:55)
[2020-03-26 05:10] LABS: BASOPHILS # (AUTO) 0.1 10^3/uL (0.0-0.1); BASOPHILS % (AUTO) 1.6 %; EOSINOPHILS # (AUTO) 0.4 10^3/uL (0.0-0.7); EOSINOPHILS % (AUTO) 4.8 %; LYMPHOCYTES # (AUTO) 1.5 10^3/uL (1.5-3.5); MEAN CORPUSCULAR HEMOGLOBIN 32.6 pg (27.0-31.0); MEAN CORPUSCULAR HGB CONC 33.2 g/dL (32.0-36.0); MEAN CORPUSCULAR VOLUME 98.2 fL (80.0-94.0); MEAN PLATELET VOLUME 10.1 fL (7.4-11.4); MONOCYTES % (AUTO) 13.8 %; NEUTROPHILS # (AUTO) 4.5 10^3/uL (1.5-6.6); NEUTROPHILS % (AUTO) 59.3 %; PLT - PLATELET COUNT 145 10^3/uL (130-450); RED BLOOD COUNT 3.37 10^6/uL (4.70-6.10); RED CELL DISTRIBUTION WIDTH 13.7 % (12.0-15.0); WHITE BLOOD COUNT 7.6 x10^3/uL (4.8-10.8)
[2020-03-26 05:19] LABS: ALBUMIN 2.1 g/dL (3.2-5.5); ALBUMIN/GLOBULIN RATIO 0.7 (1.0-2.2); BILIRUBIN,TOTAL 2.1 mg/dL (0.2-1.0); CALCIUM 8.2 mg/dL (8.5-10.3); CREATININE 1.1 mg/dL (0.6-1.2); TOTAL PROTEIN 5.2 g/dL (6.7-8.2)
[2020-03-26] MEDS: INSULIN ASPART 300 UNIT/3 ML PEN SUBQ SCH ×7 (08:33→20:55)
[2020-03-26] MEDS: FAMOTIDINE 20 MG TABLET PO SCH ×2 (08:34→20:56)
[2020-03-26] MEDS: buPROPion SR 150 MG TABLET PO SCH ×2 (08:34→20:56)
[2020-03-26] MEDS: OXYBUTYNIN 5MG TABLET PO SCH ×2 (08:34→20:58)
[2020-03-26] MEDS: MULTIVITAMIN W/MINERALS TABLET PO SCH (08:34)
[2020-03-26] MEDS: METOPROLOL SUCCINATE 25 MG TABLET PO SCH ×2 (08:34→20:57)
[2020-03-26] MEDS: SPIRONOLACTONE 25 MG TABLET PO SCH ×2 (08:34→20:57)
[2020-03-26] MEDS: THIAMINE 100 MG TABLET PO SCH (08:34)
[2020-03-26] MEDS: BENZOCAINE/MENTHOL LOZENGE MM PRN (08:35)
[2020-03-26] MEDS: LIDOCAINE PATCH 5% TOP PRN (08:35)
--- NOTE | 2020-03-26 10:48 | PROVIDER PROGRESS NOTE ---
Subjective - Prog Note Date Prog Note Date: 03/26/20 Prog Note Time: 10:48 - Subjective Pt reports feeling: No change Subjective: Uncomfortable with abdominal edema. Leg edema. Scrotal edema. Struggles to move Current Medications - Current Medications Current Medications: Active Medications Acetaminophen/Codeine Phosphate (Acetaminophen/Codeine 300 Mg/30 Mg Tablet) 1 tab PO Q4HR PRN PRN Reason: Cough Last Admin: 03/26/20 05:08 Dose: 1 tab Documented by: Albuterol (Albuterol Neb 2.5 Mg/3 Ml) 2.5 mg INH RTQ4H PRN PRN Reason: Wheezing Last Admin: 03/20/20 18:00 Dose: 2.5 mg Documented by: Bupropion HCl (Bupropion Sr 150 Mg Tablet) 150 mg PO BID [facility] Last Admin: 03/26/20 08:34 Dose: 150 mg Documented by: Famotidine (Famotidine 20 Mg Tablet) 20 mg PO BID [facility] Last Admin: 03/26/20 08:34 Dose: 20 mg Documented by: Furosemide (Furosemide 40 Mg/4 Ml Vial) 40 mg IVP BIDDIURETIC [facility] Last Admin: 03/26/20 05:09 Dose: 40 mg Documented by: Insulin Aspart (Insulin Aspart 300 Unit/3 Ml Pen) 3 - 11 unit SUBQ 0 800,1200,1700,2100 [facility]; Protocol Last Admin: 03/26/20 08:33 Dose: 7 unit Documented by: Insulin Aspart (Insulin Aspart 300 Unit/3 Ml Pen) 10 unit SUBQ TIDWM [facility]; Protocol Last Admin: 03/26/20 08:33 Dose: 10 unit Documented by: Insulin Glargine (Insulin Glargine 300 Unit/3 Ml Pen) 40 unit SUBQ QPM [facility] Lidocaine (Lidocaine Patch 5%) 1 patch TOP DAILY PRN PRN Reason: PAIN Last Admin: 03/26/20 08:35 Dose: 1 patch Documented by: Metoprolol Succinate (Metoprolol Succinate 25 Mg Tablet) 25 mg PO BID [facility] Last Admin: 03/26/20 08:34 Dose: 25 mg Documented by: Multivitamins/Minerals (Multivitamin W/Minerals Tablet) 1 tab PO DAILY [facility] Last Admin: 03/26/20 08:34 Dose: 1 tab Documented by: Oxybutynin Chloride (Oxybutynin 5mg Tablet) 5 mg PO BID [facility] Last Admin: 03/26/20 08:34 Dose: 5 mg Documented by: Sodium Chloride (Sodium Chloride Flush 0.9% 10 Ml Syringe) 10 ml IVP PRN PRN PRN Reason: NEEDED PER PROVIDER ORDERS Last Admin: 03/25/20 13:24 Dose: 10 ml Documented by: Sodium Chloride (Sodium Chloride Flush 0.9% 10 Ml Syringe) 10 ml IVP 0100,0900,1700 [facility] Last Admin: 03/26/20 08:35 Dose: 10 ml Documented by: Spironolactone (Spironolactone 25 Mg Tablet) 75 mg PO BID [facility] Last Admin: 03/26/20 08:34 Dose: 75 mg Documented by: Thiamine HCl (Thiamine 100 Mg Tablet) 100 mg PO DAILY [facility] Last Admin: 03/26/20 08:34 Dose: 100 mg Documented by: Throat Lozenges (Benzocaine/Menthol Lozenge) 1 lozenge MM Q2HR PRN PRN Reason: Throat pain Last Admin: 03/26/20 08:35 Dose: 1 lozenge Documented by: Atorvastatin [Lipitor] 40 mg PO QPM 08/17/14 Albuterol Sulfate [Proair Hfa Inhaler] 1 - 2 puffs INH Q4H PRN 11/13/16 Aspirin [Adult Low Dose Aspirin EC] 81 mg PO DAILY 11/13/16 Insulin Glargine,Hum.rec.anlog [Basaglar Kwikpen U-100] 65 units SUBQ DAILY PM 11/13/16 Insulin Regular, Human [Humulin R] 15 - 30 units SUBQ TIDWM 11/13/16 Fluticasone Propionate [Flovent Diskus] 1 puffs IH DAILY 02/15/20 Metoprolol Tartrate [Lopressor] 25 mg PO BID 02/15/20 Multivitamin W/Minerals [Theragran M] 1 tab PO DAILY 02/15/20 buPROPion HCL [Bupropion HCl Sr] 150 mg PO BID 02/15/20 Losartan Potassium [Cozaar] 100 mg PO DAILY 03/18/20 Objective - Vital Signs/Intake & Output Reviewed Vital Signs: Yes Vital Signs: Vital Signs x48h Temp Pulse Resp BP Pulse Ox 03/26/20 07:35 37.1 C 73 18 111/59 L 92 03/26/20 04:59 36.8 C 82 20 100/63 95 Intake & Output: Intake & Output 03/23/20 03/24/20 03/25/20 03/26/20 23:59 23:59 23:59 23:59 Intake Total 2120 1120 3254 965 Output Total 1300 1900 1750 225 Balance 820 -780 1504 740 - Objective General Appearance: positive: No acute distress, Alert, Other (morbidly obese white male who struggles to just sit up in bed, much less transfer to sitting and standing) Eyes Bilateral: positive: PERRL ENT: positive: Pharynx nml Neck: negative: Stiff neck Respiratory: positive: No respiratory distress, Other (dull bases). negative: Wheezes, Rales, Rhonchi Cardiovascular: positive: Regular rate & rhythm. negative: Gallop/S4, Friction rub Abdomen: positive: Tenderness (mild and diffuse), Other (huge, huge abd panus with fluid wave). negative: Guarding, Rebound Skin: positive: Warm, Dry. negative: Pallor Extremities: positive: Full ROM, Pedal edema Neurologic/Psychiatric: positive: Oriented x3, CN's nml (2-12), Motor nml - Lab Results Fish Bones: 03/26/20 04:54 03/26/20 04:54 Other Labs: Lab Results x24hrs 03/26/20 03/26/20 03/26/20 Range/Units 07:32 04:54 04:54 WBC 7.6 (4.8-10.8) x10^3/uL RBC 3.37 L (4.70-6.10) 10^6/uL Hgb 11.0 L (14.0-18.0) g/dL Hct 33.1 L (42.0-52.0) % MCV 98.2 H (80.0-94.0) fL MCH 32.6 H (27.0-31.0) pg MCHC 33.2 (32.0-36.0) g/dL RDW 13.7 (12.0-15.0) % Plt Count 145 (130-450) 10^3/uL MPV 10.1 (7.4-11.4) fL Neut # (Auto) 4.5 (1.5-6.6) 10^3/uL Lymph # (Auto) 1.5 (1.5-3.5) 10^3/uL [place] # (Auto) 1.0 (0.0-1.0) 10^3/uL Eos # (Auto) 0.4 (0.0-0.7) 10^3/uL Baso # (Auto) 0.1 (0.0-0.1) 10^3/uL Absolute Nucleated RBC 0.00 x10^3/uL Nucleated RBC % 0.0 /100WBC Sodium 127 L (135-145) mmol/L Potassium 4.3 (3.5-5.0) mmol/L Chloride 98 L (101-111) mmol/L Carbon Dioxide 23 (21-32) mmol/L Anion Gap 6.0 (6-13) BUN 36 H (6-20) mg/dL Creatinine 1.1 (0.6-1.2) mg/dL Estimated GFR (MDRD) 71 L (>89) Glucose 228 H (70-100) mg/dL POC Whole Bld Glucose 255 H (70 - 100) mg/dL Calcium 8.2 L (8.5-10.3) mg/dL Total Bilirubin 2.1 H (0.2-1.0) mg/dL AST 40 (10-42) IU/L ALT 23 (10-60) IU/L Alkaline Phosphatase 68 (42-121) IU/L Total Protein 5.2 L (6.7-8.2) g/dL Albumin 2.1 L (3.2-5.5) g/dL Globulin 3.1 (2.1-4.2) g/dL Albumin/Globulin Ratio 0.7 L (1.0-2.2) 03/25/20 03/25/20 03/25/20 Range/Units 20:34 16:41 11:21 WBC (4.8-10.8) x10^3/uL RBC (4.70-6.10) 10^6/uL Hgb (14.0-18.0) g/dL Hct (42.0-52.0) % MCV (80.0-94.0) fL MCH (27.0-31.0) pg MCHC (32.0-36.0) g/dL RDW (12.0-15.0) % Plt Count (130-450) 10^3/uL MPV (7.4-11.4) fL Neut # (Auto) (1.5-6.6) 10^3/uL Lymph # (Auto) (1.5-3.5) 10^3/uL [place] # (Auto) (0.0-1.0) 10^3/uL Eos # (Auto) (0.0-0.7) 10^3/uL Baso # (Auto) (0.0-0.1) 10^3/uL Absolute Nucleated RBC x10^3/uL Nucleated RBC % /100WBC Sodium (135-145) mmol/L Potassium (3.5-5.0) mmol/L Chloride (101-111) mmol/L Carbon Dioxide (21-32) mmol/L Anion Gap (6-13) BUN (6-20) mg/dL Creatinine (0.6-1.2) mg/dL Estimated GFR (MDRD) (>89) Glucose (70-100) mg/dL POC Whole Bld Glucose 192 H 185 H 234 H (70 - 100) mg/dL Calcium (8.5-10.3) mg/dL Total Bilirubin (0.2-1.0) mg/dL AST (10-42) IU/L ALT (10-60) IU/L Alkaline Phosphatase (42-121) IU/L Total Protein (6.7-8.2) g/dL Albumin (3.2-5.5) g/dL Globulin (2.1-4.2) g/dL Albumin/Globulin Ratio (1.0-2.2) Assessment/Plan - Problem List (1) End stage liver disease Impression: This unfortunate gentleman has a history of 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 Most recent CT scan shows him to have an indeterminate hypodense lesion in the right lobe of the liver that is 2.6 cm big. Further evaluation with a multiphase MRI would be recommended but he cannot fit in the MRI machine due to his size. He was admitted because of increased anasarca, orthopnea. This was on March 18. This is a second admission where he was here in February 2020 for the same thing. He is on Lasix 40 mg twice daily spironolactone 75 mg p.o. twice daily. He is also had paracentesis on March 19 and March 24. With the most recent one he had 13 L removed. Conversation with the patient 03/25/20. We were going over his studies, his ideas about what was going on, and if he had any further questions about his palliative care consultation from 03/24/20. During the conversation the patient was startled when I reiterated that he had end-stage liver disease. He states that the nurse practitioner Scott had told him that he had a poor prognosis and possibly less than 6 months of life left. He did not believe the nurse practitioner so was dismayed when I reiterated the same prognosis. "This is some serious shit! Now I have phone calls to make." He would like to call his mom. He would like to move forward with being seen by GI at liver clinic and a liver transplant team. I did explain that most team is required him to be clean and sober for a minimum of 6 months. Is not much changed with that with today's visit. He is essentially with generalized weakness, is seeing physical therapy. The thought is that he may be able to go to rehab for enough strength mobility strengthening to then go home. He needs to get out of here to be able to start the process of being evaluated by GI for his liver disease, and possible liver cancer. (2) Anasarca Impression: He tells me that his ascites is coming back. Even in the 48 hours between 03/24/20 and today it is getting worse. Scrotal edema is about the same. Leg edema is about the same. Continue Lasix, spironolactone. Blood pressure is already low at 99-108 systolic. I hesitate to add a beta-geovanna. Plan: I will make contact with liver transplant team or end-stage liver disease team at via midline consult. See if there is anything else I can change for his management. Unfortunately [facility] is no longer accepting phone consults. I had contacted the medicine consult line. I then called the transfer center and she regretfully told me that [facility] says it were not even to put phone calls to them at all. I will try [facility]. I spoke to Dr. Flores Carpenter. In the outpatient setting there is not much to do for him. Focus on 40:100 ratio of diuretics. Fluid restriction. And a low-sodium diet. Has to be a strict low-sodium diet. He needs to be urgently referred to a tertiary care [facility] and [facility] or [facility] or his options. He would go to which one took his insurance.I also spoke to Dr. Browne, general surgery on-call. In a gentleman with this kind of condition there is not a catheter that they can use that is permanent like a Pleurx catheter. Under tense ascites, those catheters tend to constantly drain at the insertion site. (3) Generalized weakness Impression: He has ascites, anasarca, scrotal edema and his penis has disappeared. Very difficult to mobilize. He has been spending more more time sedentary. As such he has developed some moderate generalized weakness. During the stay he has been seen by physical therapy. He is slowly improving. At this time they are recommending shelter facility placement for strengthening and rehab. They will continue to see him while he is here awaiting placement.Today he was very tired. Did not want a work with physical therapy until 1 PM. Physical therapy will be coming back at 1:00 to work with him. (4) Hyponatremia Assessment/Plan: This patient started at 137. He has been gradually going down and has been stable at 130. Today he is 127. He has had hyponatremia off and on during his admissions. All having to do with his ascites. We will continue to monitor. Most likely hypervolemic hyponatremia. I will decrease fluid intake to 1500 cc, total, a day (5) Diabetes mellitus, insulin dependent (IDDM), uncontrolled Assessment/Plan: He has gone from 20 units of Lantus, to 30 units of Lantus, and 03/24 was increased to 35 units of Lantus. Fixed dose NovoLog before meals was added 03/25 Glucose today is 200s. Plan: Increase Lantus to 40 units at night. Continue fixed dose of before meals insulin with sliding scale as well. (6) Hx of essential hypertension Assessment/Plan: His blood pressure has been on the low side. Cozaar is being held from home. He is only the metoprolol and diuretics. (7) Chronic low back pain Assessment/Plan: continue pain control, continue lidocaine patch topical. His current goals are to get stronger, be able to take care of himself again, and be able to return home. He is awaiting SNF placement, (8) chronic urinary Blunt catheter Patient has urinary retention plus swelling of the penis, Continue Blunt catheter, Continue catheter care
[2020-03-26] MEDS: SODIUM CHLORIDE FLUSH 0.9% 10 ML SYRINGE IVP PRN (12:55)
[2020-03-26] MEDS ORDERED: CALAMINE/ZINC OXIDE 177 ML BOTTLE TOP PRN (17:31)
[2020-03-26] MEDS: LORazepam 0.5 MG TABLET PO PRN (20:56)
[2020-03-26] MEDS ORDERED: INSULIN GLARGINE 300 UNIT/3 ML PEN SUBQ SCH (21:00)
[2020-03-27] MEDS: SODIUM CHLORIDE FLUSH 0.9% 10 ML SYRINGE IVP SCH ×3 (00:28→18:22)
[2020-03-27 05:29] LABS: BASOPHILS # (AUTO) 0.1 10^3/uL (0.0-0.1); BASOPHILS % (AUTO) 1.6 %; EOSINOPHILS # (AUTO) 0.4 10^3/uL (0.0-0.7); EOSINOPHILS % (AUTO) 5.5 %; HGB - HEMOGLOBIN 11.5 g/dL (14.0-18.0); LYMPHOCYTES # (AUTO) 1.7 10^3/uL (1.5-3.5); LYMPHOCYTES % (AUTO) 24.7 %; MEAN CORPUSCULAR HEMOGLOBIN 32.8 pg (27.0-31.0); MEAN CORPUSCULAR HGB CONC 33.8 g/dL (32.0-36.0); MEAN CORPUSCULAR VOLUME 96.9 fL (80.0-94.0); MEAN PLATELET VOLUME 9.9 fL (7.4-11.4); MONOCYTES % (AUTO) 14.3 %; NEUTROPHILS # (AUTO) 3.6 10^3/uL (1.5-6.6); NEUTROPHILS % (AUTO) 53.5 %; PLT - PLATELET COUNT 173 10^3/uL (130-450); RED BLOOD COUNT 3.51 10^6/uL (4.70-6.10); RED CELL DISTRIBUTION WIDTH 13.7 % (12.0-15.0); WHITE BLOOD COUNT 6.8 x10^3/uL (4.8-10.8)
[2020-03-27] MEDS: FUROSEMIDE 40 MG/4 ML VIAL IVP SCH ×2 (06:04→13:17)
[2020-03-27] MEDS: INSULIN ASPART 300 UNIT/3 ML PEN SUBQ SCH ×7 (08:05→21:14)
[2020-03-27] MEDS: LIDOCAINE PATCH 5% TOP PRN (08:06)
[2020-03-27] MEDS: BENZOCAINE/MENTHOL LOZENGE MM PRN ×2 (08:07→09:02)
[2020-03-27] MEDS: SPIRONOLACTONE 25 MG TABLET PO SCH ×2 (08:07→21:14)
[2020-03-27] MEDS: MULTIVITAMIN W/MINERALS TABLET PO SCH (08:08)
[2020-03-27] MEDS: FAMOTIDINE 20 MG TABLET PO SCH ×2 (08:08→21:14)
[2020-03-27] MEDS: buPROPion SR 150 MG TABLET PO SCH ×2 (08:08→21:14)
[2020-03-27] MEDS: THIAMINE 100 MG TABLET PO SCH (08:08)
[2020-03-27] MEDS: ACETAMINOPHEN/CODEINE 300 MG/30 MG TABLET PO PRN (08:08)
[2020-03-27] MEDS: METOPROLOL SUCCINATE 25 MG TABLET PO SCH ×2 (08:09→21:13)
[2020-03-27] MEDS: OXYBUTYNIN 5MG TABLET PO SCH ×2 (08:09→21:14)
--- NOTE | 2020-03-27 11:47 | PROVIDER PROGRESS NOTE ---
Subjective - Prog Note Date Prog Note Date: 03/27/20 Prog Note Time: 11:41 - Subjective Pt reports feeling: No change Subjective: Physical therapy reports that he is requiring most of his assist in transferring from supine to sitting, sitting to standing. Once he is standing, he has good balance and is able to walk a good distance. But he really really struggles to sit up. Needs standby assist with activities of daily living for safety reasons. Current Medications - Current Medications Current Medications: Active Medications Acetaminophen/Codeine Phosphate (Acetaminophen/Codeine 300 Mg/30 Mg Tablet) 1 tab PO Q4HR PRN PRN Reason: Cough Last Admin: 03/27/20 08:08 Dose: 1 tab Documented by: Albuterol (Albuterol Neb 2.5 Mg/3 Ml) 2.5 mg INH RTQ4H PRN PRN Reason: Wheezing Last Admin: 03/20/20 18:00 Dose: 2.5 mg Documented by: Bupropion HCl (Bupropion Sr 150 Mg Tablet) 150 mg PO BID JOY Last Admin: 03/27/20 08:08 Dose: 150 mg Documented by: Calamine (Calamine/Zinc Oxide 177 Ml Bottle) 1 applic TOP Q6HR PRN PRN Reason: itchy skin Last Admin: 03/26/20 21:03 Dose: 1 applic Documented by: Famotidine (Famotidine 20 Mg Tablet) 20 mg PO BID JOY Last Admin: 03/27/20 08:08 Dose: 20 mg Documented by: Furosemide (Furosemide 40 Mg/4 Ml Vial) 40 mg IVP BIDDIURETIC [facility] Last Admin: 03/27/20 06:04 Dose: 40 mg Documented by: Insulin Aspart (Insulin Aspart 300 Unit/3 Ml Pen) 3 - 11 unit SUBQ 0800,1200 ,1700,2100 [facility]; Protocol Last Admin: 03/27/20 08:05 Dose: 5 unit Documented by: Insulin Aspart (Insulin Aspart 300 Unit/3 Ml Pen) 12 unit SUBQ TIDWM [facility] [place]; Protocol Insulin Glargine (Insulin Glargine 300 Unit/3 Ml Pen) 65 unit SUBQ QPM JOY Lidocaine (Lidocaine Patch 5%) 1 patch TOP DAILY PRN PRN Reason: PAIN Last Admin: 03/27/20 08:06 Dose: 1 patch Documented by: Lorazepam (Lorazepam 0.5 Mg Tablet) 0.5 mg PO QPM PRN PRN Reason: Insomnia Last Admin: 03/26/20 20:56 Dose: 0.5 mg Documented by: Metoprolol Succinate (Metoprolol Succinate 25 Mg Tablet) 25 mg PO BID [facility] [place] Last Admin: 03/27/20 08:09 Dose: 25 mg Documented by: Multivitamins/Minerals (Multivitamin W/Minerals Tablet) 1 tab PO DAILY [facility] [place] Last Admin: 03/27/20 08:08 Dose: 1 tab Documented by: Oxybutynin Chloride (Oxybutynin 5mg Tablet) 5 mg PO BID [facility] Last Admin: 03/27/20 08:09 Dose: 5 mg Documented by: Sodium Chloride (Sodium Chloride Flush 0.9% 10 Ml Syringe) 10 ml IVP PRN PRN PRN Reason: NEEDED PER PROVIDER ORDERS Last Admin: 03/26/20 12:55 Dose: 10 ml Documented by: Sodium Chloride (Sodium Chloride Flush 0.9% 10 Ml Syringe) 10 ml IVP 0100,0900,1700 [facility] [place] Last Admin: 03/27/20 08:06 Dose: 10 ml Documented by: Spironolactone (Spironolactone 25 Mg Tablet) 75 mg PO BID [facility] Last Admin: 03/27/20 08:07 Dose: 75 mg Documented by: Thiamine HCl (Thiamine 100 Mg Tablet) 100 mg PO DAILY [facility] [place] Last Admin: 03/27/20 08:08 Dose: 100 mg Documented by: Throat Lozenges (Benzocaine/Menthol Lozenge) 1 lozenge MM Q2HR PRN PRN Reason: Throat pain Last Admin: 03/27/20 09:02 Dose: 1 lozenge Documented by: Atorvastatin [Lipitor] 40 mg PO QPM 08/17/14 Albuterol Sulfate [Proair Hfa Inhaler] 1 - 2 puffs INH Q4H PRN 11/13/16 Aspirin [Adult Low Dose Aspirin EC] 81 mg PO DAILY 11/13/16 Insulin Glargine,Hum.rec.anlog [Basaglar Kwikpen U-100] 65 units SUBQ DAILY PM 11/13/16 Insulin Regular, Human [Humulin R] 15 - 30 units SUBQ TIDWM 11/13/16 Fluticasone Propionate [Flovent Diskus] 1 puffs IH DAILY 02/15/20 Metoprolol Tartrate [Lopressor] 25 mg PO BID 02/15/20 Multivitamin W/Minerals [Theragran M] 1 tab PO DAILY 02/15/20 buPROPion HCL [Bupropion HCl Sr] 150 mg PO BID 02/15/20 Losartan Potassium [Cozaar] 100 mg PO DAILY 03/18/20 Objective - Vital Signs/Intake & Output Reviewed Vital Signs: Yes Vital Signs: Vital Signs x48h Temp Pulse Resp BP Pulse Ox 03/27/20 08:00 37.0 C 75 18 110/68 93 03/27/20 04:07 37.1 C 77 18 108/63 95 Intake & Output: Intake & Output 03/24/20 03/25/20 03/26/20 03/27/20 23:59 23:59 23:59 23:59 Intake Total 1120 3254 1539 340 Output Total 1900 1750 1275 550 Balance -780 1504 264 -210 - Objective General Appearance: positive: Alert, Other (Morbidly obese white male, laying in bed. Comfortable without orthopnea and laying on his right side, flat.) Eyes Bilateral: positive: PERRL ENT: positive: Pharynx nml Neck: negative: Stiff neck Respiratory: positive: No respiratory distress, Other (Diminished at bases and dull at bases). negative: Wheezes, Rales, Rhonchi Cardiovascular: positive: Regular rate & rhythm. negative: Gallop/S4, Friction rub Abdomen: positive: Non-tender, Nml bowel sounds, No distention, Other (Huge abdominal pannus, fluid wave is palpable today, but it is not tense or tympanic) Skin: positive: Warm, Dry, Other (His legs have the chronic venous stasis changes of dry cracked skin that is scaly with hyperpigmentation.) Extremities: positive: Pedal edema Neurologic/Psychiatric: positive: Oriented x3, CN's nml (2-12). negative: Motor nml (Weakness enough that he struggles to sit up in bed but no focal deficits) - Lab Results Fish Bones: 03/27/20 05:20 03/26/20 04:54 Other Labs: Lab Results x24hrs 03/27/20 03/27/20 03/26/20 Range/Units 07:46 05:20 20:33 WBC 6.8 (4.8-10.8) x10^3/uL RBC 3.51 L (4.70-6.10) 10^6/uL Hgb 11.5 L (14.0-18.0) g/dL Hct 34.0 L (42.0-52.0) % MCV 96.9 H (80.0-94.0) fL MCH 32.8 H (27.0-31.0) pg MCHC 33.8 (32.0-36.0) g/dL RDW 13.7 (12.0-15.0) % Plt Count 173 (130-450) 10^3/uL MPV 9.9 (7.4-11.4) fL Neut # (Auto) 3.6 (1.5-6.6) 10^3/uL Lymph # (Auto) 1.7 (1.5-3.5) 10^3/uL [place] # (Auto) 1.0 (0.0-1.0) 10^3/uL Eos # (Auto) 0.4 (0.0-0.7) 10^3/uL Baso # (Auto) 0.1 (0.0-0.1) 10^3/uL Absolute Nucleated RBC 0.00 x10^3/uL Nucleated RBC % 0.0 /100WBC POC Whole Bld Glucose 204 H 162 H (70 - 100) mg/dL 03/26/20 Range/Units 16:37 WBC (4.8-10.8) x10^3/uL RBC (4.70-6.10) 10^6/uL Hgb (14.0-18.0) g/dL Hct (42.0-52.0) % MCV (80.0-94.0) fL MCH (27.0-31.0) pg MCHC (32.0-36.0) g/dL RDW (12.0-15.0) % Plt Count (130-450) 10^3/uL MPV (7.4-11.4) fL Neut # (Auto) (1.5-6.6) 10^3/uL Lymph # (Auto) (1.5-3.5) 10^3/uL [place] # (Auto) (0.0-1.0) 10^3/uL Eos # (Auto) (0.0-0.7) 10^3/uL Baso # (Auto) (0.0-0.1) 10^3/uL Absolute Nucleated RBC x10^3/uL Nucleated RBC % /100WBC POC Whole Bld Glucose 156 H (70 - 100) mg/dL Assessment/Plan - Problem List (1) End stage liver disease Impression: Impression: This unfortunate gentleman has a history of 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 Most recent CT scan shows him to have an indeterminate hypodense lesion in the right lobe of the liver that is 2.6 cm big. Further evaluation with a multiphase MRI would be recommended but he cannot fit in the MRI machine due to his size. He was admitted because of increased anasarca, orthopnea. This was on March 18. This is a second admission where he was here in February 2020 for the same thing. He is on Lasix 40 mg twice daily spironolactone 75 mg p.o. twice daily. He is also had paracentesis on March 19 and March 24. With the most recent one he had 13 L removed. Conversation with the patient 03/25/20. We were going over his studies, his ideas about what was going on, and if he had any further questions about his palliative care consultation from 03/24/20. During the conversation the patient was startled when I reiterated that he had end-stage liver disease. He states that the nurse practitioner Scott had told him that he had a poor prognosis and possibly less than 6 months of life left. He did not believe the nurse practitioner so was dismayed when I reiterated the same prognosis. "This is some serious shit! Now I have phone calls to make." He has been discussing his case with his family. Trying to make some plans. He has been working with phys [facility] therapy. Physical therapy now feels that he is more a candidate for long- term care. He probably will not be able to improve much with short-term rehab to return to home. Case discussed at interdisciplinary rounds. 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 (2) Anasarca Impression: He tells me that his ascites is coming back. Even in the 48 hours between and today it is getting worse. Scrotal edema is about the same. Leg edema is about the same. I have continued the same Lasix and spironolactone dosing. Low blood pressure but acceptable. I spoke to [facility] gastroenterology on March 26. They feel that he needs to be seen relatively quickly by a liver team in the outpatient setting. Time is running out for this gentleman. She also said to make sure that this gentleman is on a strict fluid restriction and low-sodium diet. That was done. I also discussed the case with Dr. Browne, general surgery, there really is no valve that can be placed in him so that we can more easily do paracentesis on him. Plan: Paracentesis the day before he leaves whenever we figure out when he is going to be discharged. I will reach out to his PCP, Ina Castillo, and make sure the provider makes the referrals. (3) Generalized weakness Impression: He has ascites, anasarca, scrotal edema and his penis has disappeared. Very difficult to mobilize. He has been spending more more time sedentary. As such he has developed some moderate generalized weakness. During the stay he has been seen by physical therapy. He is slowly improving. At this time they are [facility] for strengthening and rehab. Physical therapy has been working with him enough that he is almost at baseline. Yesterday the therapist states that he does not see this patient improving v rajan much. He is now recommending long-term care placement. Not short-term care with rehab. Wherever he goes long-term he will need rehab but doubts he would be able to leave that facility. At least to his current care needs. (4) Hyponatremia Assessment/Plan: This patient started at 137. He has been gradually going down and has been stable at 130. March 26 he is 127. He has had hyponatremia off and on during his admissions. All having to do with his ascites. We will continue to monitor. Most likely hypervolemic hyponatremia. On March 26 I started fluid restriction of 1500 cc a day, as well as salt restriction in his diet to 2000 mg a day. (5) Diabetes mellitus, insulin dependent (IDDM), uncontrolled Assessment/Plan: He has gone from 20 units of Lantus, to 30 units of Lantus, and 03/24 was increased to 35 units of Lantus. Fixed dose NovoLog before meals was added 03/25 Glucose Remains in the 200s. Plan: His home insulin is 65 units of Lantus at night. I will resume that today. We will also add 12 units of short acting insulin before meals. (6) Hx of essential hypertension Assessment/Plan: His blood pressure has been on the low side. Cozaar is being held from home. He is only the metoprolol and diuretics. (7) Chronic low back pain Assessment/Plan: continue pain control, continue lidocaine patch topical. His current goals are to get stronger, be able to take care of himself again, and be able to return home. He is awaiting SNF placement, (8) chronic urinary Blunt catheter Patient has urinary retention plus swelling of the penis, Continue Blunt catheter, Continue catheter care
[2020-03-27] MEDS: SODIUM CHLORIDE FLUSH 0.9% 10 ML SYRINGE IVP PRN (13:17)
[2020-03-27] MEDS: LORazepam 0.5 MG TABLET PO PRN (21:13)
[2020-03-27] MEDS: INSULIN GLARGINE 300 UNIT/3 ML PEN SUBQ SCH (21:15)
[2020-03-28] MEDS: SODIUM CHLORIDE FLUSH 0.9% 10 ML SYRINGE IVP SCH ×3 (00:06→17:26)
[2020-03-28] MEDS: ACETAMINOPHEN/CODEINE 300 MG/30 MG TABLET PO PRN ×2 (00:19→08:49)
[2020-03-28] MEDS: BENZOCAINE/MENTHOL LOZENGE MM PRN ×3 (05:06→11:20)
[2020-03-28] MEDS: FUROSEMIDE 40 MG/4 ML VIAL IVP SCH ×2 (05:19→16:26)
[2020-03-28 05:24] LABS: BASOPHILS # (AUTO) 0.1 10^3/uL (0.0-0.1); BASOPHILS % (AUTO) 1.8 %; EOSINOPHILS # (AUTO) 0.4 10^3/uL (0.0-0.7); HGB - HEMOGLOBIN 11.6 g/dL (14.0-18.0); LYMPHOCYTES # (AUTO) 1.6 10^3/uL (1.5-3.5); MEAN CORPUSCULAR HGB CONC 33.8 g/dL (32.0-36.0); MEAN CORPUSCULAR VOLUME 97.7 fL (80.0-94.0); MEAN PLATELET VOLUME 9.7 fL (7.4-11.4); MONOCYTES # (AUTO) 1.1 10^3/uL (0.0-1.0); MONOCYTES % (AUTO) 16.7 %; NEUTROPHILS # (AUTO) 3.3 10^3/uL (1.5-6.6); NEUTROPHILS % (AUTO) 50.2 %; PLT - PLATELET COUNT 176 10^3/uL (130-450); RED BLOOD COUNT 3.51 10^6/uL (4.70-6.10); RED CELL DISTRIBUTION WIDTH 13.6 % (12.0-15.0); WHITE BLOOD COUNT 6.5 x10^3/uL (4.8-10.8)
[2020-03-28] MEDS: INSULIN ASPART 300 UNIT/3 ML PEN SUBQ SCH ×5 (08:05→21:00)
[2020-03-28 08:14] LABS: ALBUMIN 2.2 g/dL (3.2-5.5); ALBUMIN/GLOBULIN RATIO 0.6 (1.0-2.2); BILIRUBIN,TOTAL 1.6 mg/dL (0.2-1.0); CALCIUM 8.4 mg/dL (8.5-10.3); CREATININE 1.2 mg/dL (0.6-1.2); TOTAL PROTEIN 5.8 g/dL (6.7-8.2)
[2020-03-28] MEDS: MULTIVITAMIN W/MINERALS TABLET PO SCH (08:49)
[2020-03-28] MEDS: SPIRONOLACTONE 25 MG TABLET PO SCH ×2 (08:49→20:59)
[2020-03-28] MEDS: OXYBUTYNIN 5MG TABLET PO SCH ×2 (08:49→20:59)
[2020-03-28] MEDS: THIAMINE 100 MG TABLET PO SCH (08:50)
[2020-03-28] MEDS: FAMOTIDINE 20 MG TABLET PO SCH ×2 (08:50→20:59)
[2020-03-28] MEDS: METOPROLOL SUCCINATE 25 MG TABLET PO SCH ×2 (08:50→20:59)
[2020-03-28] MEDS: buPROPion SR 150 MG TABLET PO SCH ×2 (08:50→20:59)
[2020-03-28] MEDS ORDERED: INSULIN REGULAR HUMAN 300 UNIT/3 ML VIAL SUBQ SCH (09:00)
[2020-03-28] MEDS ORDERED: ALBUMIN 25% 12.5 GM/50 ML VIAL IV STA (10:31)
[2020-03-28] MEDS: SODIUM CHLORIDE FLUSH 0.9% 10 ML SYRINGE IVP PRN (11:22)
--- NOTE | 2020-03-28 14:38 | PROVIDER PROGRESS NOTE ---
Subjective - Prog Note Date Prog Note Date: 03/28/20 - Subjective Pt reports feeling: No change Subjective: Patient reported he feels dizzy and weakness,After he had paracentesis. Patient was taken off 8.5 L of fluids by paracentesis. Patient is still persistent he want to be discharged to home, he declined for SNF and long-term care for fpc. He denies fever, chest pain, Abdominal pain. Current Medications - Current Medications Current Medications: Active Medications Acetaminophen/Codeine Phosphate (Acetaminophen/Codeine 300 Mg/30 Mg Tablet) 1 tab PO Q4HR PRN PRN Reason: Cough Last Admin: 03/28/20 08:49 Dose: 1 tab Documented by: Albuterol (Albuterol Neb 2.5 Mg/3 Ml) 2.5 mg INH RTQ4H PRN PRN Reason: Wheezing Last Admin: 03/20/20 18:00 Dose: 2.5 mg Documented by: Bupropion HCl (Bupropion Sr 150 Mg Tablet) 150 mg PO BID JOY Last Admin: 03/28/20 08:50 Dose: 150 mg Documented by: Calamine (Calamine/Zinc Oxide 177 Ml Bottle) 1 applic TOP Q6HR PRN PRN Reason: itchy skin Last Admin: 03/26/20 21:03 Dose: 1 applic Documented by: Docusate Sodium (Docusate Sodium 250 Mg Capsule) 250 - 500 mg PO DAILY JOY Famotidine (Famotidine 20 Mg Tablet) 20 mg PO BID JOY Last Admin: 03/28/20 08:50 Dose: 20 mg Documented by: Furosemide (Furosemide 40 Mg/4 Ml Vial) 40 mg IVP BIDDIURETIC JOY Last Admin: 03/28/20 05:19 Dose: 40 mg Documented by: Insulin Aspart (Insulin Aspart 300 Unit/3 Ml Pen) 1 - 5 unit SUBQ 0800,1200,1 700,2100 [facility]; Protocol Insulin Glargine (Insulin Glargine 300 Unit/3 Ml Pen) 65 unit SUBQ QPM JOY Last Admin: 03/27/20 21:15 Dose: 65 unit Documented by: Lidocaine (Lidocaine Patch 5%) 1 patch TOP DAILY PRN PRN Reason: PAIN Last Admin: 03/27/20 08:06 Dose: 1 patch Documented by: Lorazepam (Lorazepam 0.5 Mg Tablet) 0.5 mg PO QPM PRN PRN Reason: Insomnia Last Admin: 03/27/20 21:13 Dose: 0.5 mg Documented by: Metoprolol Succinate (Metoprolol Succinate 25 Mg Tablet) 25 mg PO BID [facility] Last Admin: 03/28/20 08:50 Dose: 25 mg Documented by: Multivitamins/Minerals (Multivitamin W/Minerals Tablet) 1 tab PO DAILY [facility] Last Admin: 03/28/20 08:49 Dose: 1 tab Documented by: Oxybutynin Chloride (Oxybutynin 5mg Tablet) 5 mg PO BID [facility] Last Admin: 03/28/20 08:49 Dose: 5 mg Documented by: Sodium Chloride (Sodium Chloride Flush 0.9% 10 Ml Syringe) 10 ml IVP PRN PRN PRN Reason: NEEDED PER PROVIDER ORDERS Last Admin: 03/28/20 11:22 Dose: 10 ml Documented by: Sodium Chloride (Sodium Chloride Flush 0.9% 10 Ml Syringe) 10 ml IVP 0100,0900,1700 [facility] Last Admin: 03/28/20 08:57 Dose: 10 ml Documented by: Spironolactone (Spironolactone 25 Mg Tablet) 75 mg PO BID [facility] Last Admin: 03/28/20 08:49 Dose: 75 mg Documented by: Thiamine HCl (Thiamine 100 Mg Tablet) 100 mg PO DAILY [facility] Last Admin: 03/28/20 08:50 Dose: 100 mg Documented by: Throat Lozenges (Benzocaine/Menthol Lozenge) 1 lozenge MM Q2HR PRN PRN Reason: Throat pain Last Admin: 03/28/20 11:20 Dose: 1 lozenge Documented by: Atorvastatin [Lipitor] 40 mg PO QPM 08/17/14 Albuterol Sulfate [Proair Hfa Inhaler] 1 - 2 puffs INH Q4H PRN 11/13/16 Aspirin [Adult Low Dose Aspirin EC] 81 mg PO DAILY 11/13/16 Insulin Glargine,Hum.rec.anlog [Basaglar Kwikpen U-100] 65 units SUBQ DAILY PM 11/13/16 Insulin Regular, Human [Humulin R] 15 - 30 units SUBQ TIDWM 11/13/16 Fluticasone Propionate [Flovent Diskus] 1 puffs IH DAILY 02/15/20 Metoprolol Tartrate [Lopressor] 25 mg PO BID 02/15/20 Multivitamin W/Minerals [Theragran M] 1 tab PO DAILY 02/15/20 buPROPion HCL [Bupropion HCl Sr] 150 mg PO BID 02/15/20 Losartan Potassium [Cozaar] 100 mg PO DAILY 03/18/20 Objective - Vital Signs/Intake & Output Vital Signs: Vital Signs x48h Temp Pulse Resp BP Pulse Ox 03/28/20 11:10 36.8 C 72 18 105/65 97 03/28/20 07:53 37.0 C 75 18 103/61 96 Intake & Output: Intake & Output 03/25/20 03/26/20 03/27/20 03/28/20 23:59 23:59 23:59 23:59 Intake Total 3254 1539 1117 530 Output Total 1750 1275 1850 50780 Balance 1504 462 -735 -5848 - Objective General Appearance: positive: Alert, Mild distress. negative: Lethargic Eyes Bilateral: positive: Normal inspection, PERRL, No lid inflammation ENT: positive: ENT inspection nml, No signs of dehydration. negative: Purulent nasal drainage Neck: positive: Nml inspection, Trachea midline. negative: Thyromegaly, Tracheal deviation Respiratory: positive: Chest non-tender, No respiratory distress, Breath sounds nml. negative: Wheezes, Rales, Rhonchi Cardiovascular: positive: Regular rate & rhythm, No murmur. negative: Tachycardia, Bradycardia, Systolic murmur, Diastolic murmur Peripheral Pulses: 2+ Radial (R), 2+ Radial (L) Abdomen: positive: Non-tender, Nml bowel sounds. negative: Tenderness Back: positive: Nml inspection Skin: positive: Color nml, No rash, Warm, Dry. negative: Cyanosis, Diaphoresis, Pallor Extremities: positive: Non-tender, Nml appearance, Pedal edema. negative: Calf tenderness Neurologic/Psychiatric: positive: Oriented x3, Sensation nml. negative: Weakness, Sensory loss, Facial droop, Slurred/abnml speech - Lab Results Fish Bones: 03/29/20 04:30 03/29/20 04:30 Other Labs: Lab Results x24hrs 03/28/20 03/28/20 03/28/20 Range/Units 07:52 07:51 05:22 WBC 6.5 (4.8-10.8) x10^3/uL RBC 3.51 L (4.70-6.10) 10^6/uL Hgb 11.6 L (14.0-18.0) g/dL Hct 34.3 L (42.0-52.0) % MCV 97.7 H (80.0-94.0) fL MCH 33.0 H (27.0-31.0) pg MCHC 33.8 (32.0-36.0) g/dL RDW 13.6 (12.0-15.0) % Plt Count 176 (130-450) 10^3/uL MPV 9.7 (7.4-11.4) fL Neut # (Auto) 3.3 (1.5-6.6) 10^3/uL Lymph # (Auto) 1.6 (1.5-3.5) 10^3/uL [place] # (Auto) 1.1 H (0.0-1.0) 10^3/uL Eos # (Auto) 0.4 (0.0-0.7) 10^3/uL Baso # (Auto) 0.1 (0.0-0.1) 10^3/uL Absolute Nucleated RBC 0.00 x10^3/uL Nucleated RBC % 0.0 /100WBC Whole Blood INR (0.8-1.2) Sodium 133 L (135-145) mmol/L Potassium 4.4 (3.5-5.0) mmol/L Chloride 102 (101-111) mmol/L Carbon Dioxide 25 (21-32) mmol/L Anion Gap 6.0 (6-13) BUN 41 H (6-20) mg/dL Creatinine 1.2 (0.6-1.2) mg/dL Estimated GFR (MDRD) 64 L (>89) Glucose 179 H (70-100) mg/dL POC Whole Bld Glucose 175 H (70 - 100) mg/dL Calcium 8.4 L (8.5-10.3) mg/dL Total Bilirubin 1.6 H (0.2-1.0) mg/dL AST 40 (10-42) IU/L ALT 24 (10-60) IU/L Alkaline Phosphatase 74 (42-121) IU/L Total Protein 5.8 L (6.7-8.2) g/dL Albumin 2.2 L (3.2-5.5) g/dL Globulin 3.6 (2.1-4.2) g/dL Albumin/Globulin Ratio 0.6 L (1.0-2.2) Tumor Marker AFP (<6.1) ng/mL 03/27/20 03/27/20 03/27/20 Range/Units 20:55 17:02 15:07 WBC (4.8-10.8) x10^3/uL RBC (4.70-6.10) 10^6/uL Hgb (14.0-18.0) g/dL Hct (42.0-52.0) % MCV (80.0-94.0) fL MCH (27.0-31.0) pg MCHC (32.0-36.0) g/dL RDW (12.0-15.0) % Plt Count (130-450) 10^3/uL MPV (7.4-11.4) fL Neut # (Auto) (1.5-6.6) 10^3/uL Lymph # (Auto) (1.5-3.5) 10^3/uL [place] # (Auto) (0.0-1.0) 10^3/uL Eos # (Auto) (0.0-0.7) 10^3/uL Baso # (Auto) (0.0-0.1) 10^3/uL Absolute Nucleated RBC x10^3/uL Nucleated RBC % /100WBC Whole Blood INR 1.2 (0.8-1.2) Sodium (135-145) mmol/L Potassium (3.5-5.0) mmol/L Chloride (101-111) mmol/L Carbon Dioxide (21-32) mmol/L Anion Gap (6-13) BUN (6-20) mg/dL Creatinine (0.6-1.2) mg/dL Estimated GFR (MDRD) (>89) Glucose (70-100) mg/dL POC Whole Bld Glucose 174 H 199 H (70 - 100) mg/dL Calcium (8.5-10.3) mg/dL Total Bilirubin (0.2-1.0) mg/dL AST (10-42) IU/L ALT (10-60) IU/L Alkaline Phosphatase (42-121) IU/L Total Protein (6.7-8.2) g/dL Albumin (3.2-5.5) g/dL Globulin (2.1-4.2) g/dL Albumin/Globulin Ratio (1.0-2.2) Tumor Marker AFP (<6.1) ng/mL 03/25/20 Range/Units 15:29 WBC (4.8-10.8) x10^3/uL RBC (4.70-6.10) 10^6/uL Hgb (14.0-18.0) g/dL Hct (42.0-52.0) % MCV (80.0-94.0) fL MCH (27.0-31.0) pg MCHC (32.0-36.0) g/dL RDW (12.0-15.0) % Plt Count (130-450) 10^3/uL MPV (7.4-11.4) fL Neut # (Auto) (1.5-6.6) 10^3/uL Lymph # (Auto) (1.5-3.5) 10^3/uL [place] # (Auto) (0.0-1.0) 10^3/uL Eos # (Auto) (0.0-0.7) 10^3/uL Baso # (Auto) (0.0-0.1) 10^3/uL Absolute Nucleated RBC x10^3/uL Nucleated RBC % /100WBC Whole Blood INR (0.8-1.2) Sodium (135-145) mmol/L Potassium (3.5-5.0) mmol/L Chloride (101-111) mmol/L Carbon Dioxide (21-32) mmol/L Anion Gap (6-13) BUN (6-20) mg/dL Creatinine (0.6-1.2) mg/dL Estimated GFR (MDRD) (>89) Glucose (70-100) mg/dL POC Whole Bld Glucose (70 - 100) mg/dL Calcium (8.5-10.3) mg/dL Total Bilirubin (0.2-1.0) mg/dL AST (10-42) IU/L ALT (10-60) IU/L Alkaline Phosphatase (42-121) IU/L Total Protein (6.7-8.2) g/dL Albumin (3.2-5.5) g/dL Globulin (2.1-4.2) g/dL Albumin/Globulin Ratio (1.0-2.2) Tumor Marker AFP 3.7 (<6.1) ng/mL ABX Reporting Has patient been on IV antibiotics over the past 48 hours?: No Sepsis Event Note (H) - Evaluation Current Stage of Sepsis: Ruled out Assessment/Plan - Problem List (1) Dizziness Impression: pt Patient feels dizziness and weak After the patient had 8.5 L of fluids taken from Paracentesis. We will give patient Albumin IV, Vital signs closely monitor patient, Prevention of patient's fall. Will might need hold the patient blood pressure medicine if his blood pressure continue treaded down. (2) End stage liver disease At this stage, patient realized she has end-stage liver disease, He had any other paracentesis and the take of 8.5 L of fluids. We discussed with the patient for the poor prognosis and show patient biostatistics data for poor prognosis of the end-stage of liver disease, Patient understand. At this point, patient declined SNF or long-term fpc. Patient wanted to be discharged to home. Patient had palliative consult in the hospital, palliative palliative consult will follow up with patient after d/c. Social work arrange patient next appointment to see his GI and primary care on Next week. (3) Anasarca Patient had paracentesis done on today, 8.5 L fluids taken off from paracentesis. Patient feels better. We will continue patient's Lasix, spironolactone, if patient tolerated. (4) Generalized weakness Impression: He has ascites, anasarca, scrotal edema with Blunt catheter, pt is Very difficult to mobilize. He has been spending more more time sedentary. As such he has developed some moderate and generalized weakness. During the stay he has been seen by physical therapy. He is slowly improving. At this time they are recommending [facility] facility placement for strengthening and rehab. Physical therapy has been working with him enough that he is almost at baseline. now physicial therapist states that he does not see this patient improving very much. He is now recommending long-term care placement. Not short-term care with rehab. Now patient declined to SNF or long-term fpc, Patient wanted be discharged to his home, We will order home health with PT, RN home health aide, oncology social work for him. (5) Hyponatremia Improved, sodium is 133 Most likely hypervolemic hyponatremia. Continue fluids restriction (6) Diabetes mellitus, insulin dependent (IDDM), uncontrolled continue His home insulin is 65 units of Lantus at night. hold 12 units of short acting insulin before meals. continue slide scale (7) Hx of essential hypertension His blood pressure has been on the low side. Continue vital signs monitor patient closely, Cozaar is being held from home. He is only the metoprolol and diuretics and home meds spironolactone (8) Chronic low back pain Assessment/Plan: continue pain control, continue lidocaine patch topical. His current goals are to get stronger, be able to take care of himself again, and be able to return home. He is awaiting SNF placement, (9) chronic urinary Blunt catheter Patient has urinary retention plus swelling of the penis, Continue Blunt cath eter, Continue catheter care
[2020-03-28] MEDS: INSULIN GLARGINE 300 UNIT/3 ML PEN SUBQ SCH (21:01)
[2020-03-29] MEDS: SODIUM CHLORIDE FLUSH 0.9% 10 ML SYRINGE IVP SCH ×2 (00:23→11:45)
[2020-03-29] MEDS: BENZOCAINE/MENTHOL LOZENGE MM PRN (02:57)
[2020-03-29] MEDS: FUROSEMIDE 40 MG/4 ML VIAL IVP SCH (05:10)
[2020-03-29 05:12] LABS: BASOPHILS # (AUTO) 0.1 10^3/uL (0.0-0.1); BASOPHILS % (AUTO) 1.4 %; EOSINOPHILS # (AUTO) 0.3 10^3/uL (0.0-0.7); EOSINOPHILS % (AUTO) 5.1 %; HGB - HEMOGLOBIN 11.9 g/dL (14.0-18.0); LYMPHOCYTES # (AUTO) 1.4 10^3/uL (1.5-3.5); LYMPHOCYTES % (AUTO) 22.3 %; MEAN CORPUSCULAR HEMOGLOBIN 32.8 pg (27.0-31.0); MEAN CORPUSCULAR HGB CONC 33.5 g/dL (32.0-36.0); MEAN CORPUSCULAR VOLUME 97.8 fL (80.0-94.0); MEAN PLATELET VOLUME 10.1 fL (7.4-11.4); MONOCYTES # (AUTO) 1.1 10^3/uL (0.0-1.0); MONOCYTES % (AUTO) 17.4 %; NEUTROPHILS # (AUTO) 3.4 10^3/uL (1.5-6.6); NEUTROPHILS % (AUTO) 53.5 %; PLT - PLATELET COUNT 195 10^3/uL (130-450); RED BLOOD COUNT 3.63 10^6/uL (4.70-6.10); RED CELL DISTRIBUTION WIDTH 13.6 % (12.0-15.0); WHITE BLOOD COUNT 6.3 x10^3/uL (4.8-10.8)
[2020-03-29 05:23] LABS: ALBUMIN 2.1 g/dL (3.2-5.5); ALBUMIN/GLOBULIN RATIO 0.6 (1.0-2.2); BILIRUBIN,TOTAL 1.5 mg/dL (0.2-1.0); CALCIUM 8.3 mg/dL (8.5-10.3); TOTAL PROTEIN 5.4 g/dL (6.7-8.2)
[2020-03-29] MEDS: INSULIN ASPART 300 UNIT/3 ML PEN SUBQ SCH ×2 (08:20→11:44)
[2020-03-29] MEDS: MULTIVITAMIN W/MINERALS TABLET PO SCH (08:22)
[2020-03-29] MEDS: SPIRONOLACTONE 25 MG TABLET PO SCH (08:22)
[2020-03-29] MEDS: FAMOTIDINE 20 MG TABLET PO SCH (08:22)
[2020-03-29] MEDS: OXYBUTYNIN 5MG TABLET PO SCH (08:22)
[2020-03-29] MEDS: THIAMINE 100 MG TABLET PO SCH (08:23)
[2020-03-29] MEDS: buPROPion SR 150 MG TABLET PO SCH (08:23)
[2020-03-29] MEDS: METOPROLOL SUCCINATE 25 MG TABLET PO SCH (08:24)
[2020-03-29] MEDS ORDERED: SODIUM CHLORIDE 0.9% 1,000 ML IV ONE (08:39)
[2020-03-29] MEDS ORDERED: ALBUMIN 25% 12.5 GM/50 ML VIAL IV STA (08:43)
[2020-03-29] MEDS ORDERED: DOCUSATE SODIUM 250 MG CAPSULE PO SCH (09:00)
--- NOTE | 2020-03-29 10:48 | Ultrasound Report ---
PROCEDURE: Abdominal Paracentesis INDICATIONS: END STAGE LIVER, ASCITES TECHNIQUE: The indications, alternatives, benefits, risks, and complications of the procedure were explained to the patient. Written informed consent was obtained and placed in the chart. The abdomen and pelvis were examined sonographically, and an appropriate site was chosen for paracentesis. The skin was pre pared and draped in the usual sterile fashion, and 1% lidocaine was infiltrated from the skin down th rough the peritoneal surface. A 19-gauge catheter-covered needle was then introduced into the perito valerie space, the catheter was advanced and the needle was withdrawn, and thereafter peritoneal fluid w as withdrawn. The catheter was then removed and a dressing was applied. The fluid was discarded if the clinician did not order diagnostic testing of the fluid. COMPARISON: Prior CT abdomen/pelvis 03/22/2020, prior abdomen exam paracentesis 03/24/2020. FINDINGS: Access site: Right lower quadrant Needle: One-Step centesis catheter with introducer needle. Fluid volume and description: 9.2 L, serous, removed by Dr. Busch Fluid sent for diagnostic testing: Not requested Medications: 1% lidocaine for local anaesthesia. Complications: None. IMPRESSION: 19.2 L successful ultrasound-guided paracentesis. Reviewed by: Emeka Nuñez MD on 03/29/2020 10:47 AM [facility] Approved by: Emeka Nuñez MD on 03/29/2020 10:47 AM PST Station ID: [id number]
[2020-03-29] MEDS ORDERED: ALBUMIN 25% 50 GM/200 ML VIAL IV ONE (12:00)
[2020-03-29] MEDS ORDERED: ALBUMIN 25% 12.5 GM/50 ML VIAL IV SCH (12:00)
[2020-03-29 12:02] VITALS: BP 109/58
--- NOTE | 2020-03-29 13:52 | Discharge Plan ---
Discharge Plan Problem Reviewed?: Yes Disposition: Home Health Service Condition: Poor Prescriptions: Furosemide [Lasix] 40 mg PO BIDDIURETIC #30 tablet Multivitamin W/Minerals [Theragran M] 1 tab PO DAILY #30 tablet Thiamine [Vitamin B-1] 100 mg PO DAILY #30 tablet Diet: Diabetic Activity Restrictions: Activity as Tolerated Shower Restrictions: No (fall precaution) Instruction Topics: Furosemide tablets, Paracentesis Health Concerns: You were admitted here for anasarca from your liver failure. pt had three paracentesis to remove your ascites fluid in hospital. Your home medication Lasix dosage is increased to 40mg Bid, hold your home meds Losartan, resume your other home medications. perinatal social worker help your arrange you see your GI doctor on next Friday04/03/20, and see your PCP on 04/07/20, please may followup with these appointments. You had palliative care consult in hospital, and may followup with palliative care as out -pt as well. Should your symptom return or worsen or your feeling of shortness of breath due to your accumulated ascite fluid, you may return ER or call 911 for help. Plan of Treatment: As above and home health PT/RN/home health aide/oncology social work are arranged for you. Continue to not use any alcohol. Care Goals: Improvement in symptoms and stabilization of your medical conditions Assessment: Understands and is agreeable with the plan. Additional Instructions or Follow Up instructions: discussed the care plan with you, answered your questions, you understood and agreed. Follow-Up Care: Home Health - RN, Home Health - PT No Smoking: If you smoke, Please STOP! Call for help. Follow-up with: Ina Castillo MD [Primary Care Provider] -
[2020-03-29] MEDS ORDERED: FUROSEMIDE 40 MG TABLET PO SCH (14:00)
--- NOTE | 2020-03-29 14:16 | DISCHARGE SUMMARY ---
"Discharge Summary Admit Date: 03/18/20 Discharge Date: 03/29/20 Discharging Provider: Herbert Chavez Primary Care Provider: Ina Morris Condition at Discharge: Poor Discharge Disposition: Home Health Service Discharge Facility Name: home - DIAGNOSES Discharge Diagnoses with Status of Each Condition: (1) End stage liver disease again patient had 3 times of paracentesis in this time hospital course. Discussed with patient about poor progress of end-stage liver disease, Patient undertood now. Patient had a palliative care consult in hospital, patient will follow up with the palliative care. PT evaluated and treated the patient, recommended patient discharge to SNF or long-term halfway for patient care, But the patient declined. Patient was given intravenous albumin in the hospital. Patient wanted discharged on today. Patient had paracentesis on yesterday. Patient will see his GI doctor on next Friday, April 03, will see his PCP on April 07. Patient was advised if he feel difficulty breathing or her symptoms return or worsening, he should come to the ER or call 911 for help. Patient verbally state he understand. Patient was given intravenous twice daily Lasix, continue home dosage of spironolactone in the hospital. Patient's home Lasix dosage increases to 40 twice daily, continue home dosage of spironolactone. Home health with PT, RN, home health aide, social work was arranged for patient (2) Anasarca Patient had paracentesis done on today, 8.5 L fluids taken off from para centesis. Patient feels better. Patient had a total of 3 times of paracentesis in the hospital course. We will continue patient's Lasix, spironolactone. discussed the case with general surgery, there is no valve that can be placed in him per surgeon. (3) Generalized weakness Impression: He has ascites, anasarca, scrotal edema with Blunt catheter, pt is difficult to mobilize. PT evaluated and treated for patient. Now patient declined to SNF or long-term halfway, Patient wanted be discharged to his home, home health with PT, RN, home health aide, high school social studies tutor was arranged for him. (4) Hyponatremia resolved (5) Diabetes mellitus, insulin dependent (IDDM), uncontrolled stable, continue His home insulin (6) Hx of essential hypertension stable, continue Lasix and spironolactone and metoprolol. Cozaar is being held from home. (7) Chronic low back pain stable (8) chronic urinary Blunt catheter Patient has urinary retention plus swelling of the penis, Continue Blunt catheter, Continue catheter care by home health RN - HPI History of Present Illness: This is a 49 years old male with medical history of obesity, diabetic 2, alcohol abuse, ascites with cirrhosis, Anasarca, Who present to ER complain worsening fluid retention. Patient was discharged about a month ago with similar symptoms, In that time patient needed 3 time paracentesis and patient scrotal and penile edema then patient needed Blunt catheter for patient to have urinary output.Patient reported he has decreases his alcohol intake. Patient report he see his PCP, his PCP to give him high dosage Lasix plus high dosage of spironolactone but pt still present extended abdomen, it was likely pt need another Paracentesis. - CONSULTS | PROCEDURES Consultations: DR. mcmillan and Intervention radiologist Procedures: Paracentesis - HOSPITAL COURSE Hospital Course: Patient was admitted for anasarca and fluids over-loaded. Patient was discharged a month ago with end-stage of liver disease with severe ascites. Patient had a 3 time paracentesis in the last admission and with a Blunt catheter, Because the patient had a significantly edema of his penis, he cannot urinate, he required Blunt catheter for urinary output. Patient was admitted with a similar symptoms as before. Patient had 3 time paracentesis in the hospital at this time. Patient was given intravenous albumin in hospital. Patient had PT evaluation and treatment, patient was recommended to SNF or long-term halfway, But patient declined. Patient's home medication Lasix dosage increases to 40 twice daily. Patient had paracentesis on yesterday. Patient was arranged by high school social studies tutor to see his GI doctor on next Friday, April 03, And see his PCP on April 07. Patient was arranged for home health PT, RN, home theatre technician, social work. Patient was instructed to return to the ER or call 911 for help if his shortness of breathing return, Fluids overloaded symptoms return or worsening. - ALLERGIES Allergies/Adverse Reactions: Allergies Allergy/AdvReac Type Severity Reaction Status Date / Time lisinopril Allergy Unknown Verified 03/18/20 12:08 - MEDICATIONS Home Medications: Ambulatory Orders Medication Instructions Recorded Confirmed Atorvastatin [Lipitor] 40 mg PO QPM 08/17/14 03/19/20 Albuterol Sulfate [Proair Hfa 1 - 2 puffs INH Q4H PRN 11/13/16 03/19/20 Inhaler] Aspirin [Adult Low Dose Aspirin EC] 81 mg PO DAILY 11/13/16 03/19/20 Insulin Glargine,Hum.rec.anlog 65 units SUBQ DAILY PM 11/13/16 03/19/20 [Basaglar Kwikpen U-100] Insulin Regular, Human [Humulin R] 15 - 30 units SUBQ TIDWM 11/13/16 03/19/20 Fluticasone Propionate [Flovent 1 puffs IH DAILY 02/15/20 03/19/20 Diskus] Metoprolol Tartrate [Lopressor] 25 mg PO BID 02/15/20 03/19/20 Multivitamin W/Minerals [Theragran 1 tab PO DAILY 02/15/20 03/19/20 M] buPROPion HCL [Bupropion HCl Sr] 150 mg PO BID 02/15/20 03/19/20 Spironolactone [Aldactone] 75 mg PO 0800,1300 #180 tablet 02/24/20 03/19/20 Clotrimazole/Betamethasone Crm 1 applic TOP BID #30 g 03/04/20 03/19/20 [Lotrisone Cream] Furosemide [Lasix] 40 mg PO BIDDIURETIC #30 tablet 03/29/20 Multivitamin W/Minerals [Theragran 1 tab PO DAILY #30 tablet 03/29/20 M] Thiamine [Vitamin B-1] 100 mg PO DAILY #30 tablet 03/29/20 - PHYSICAL EXAM AT DISCHARGE General Appearance: positive: No acute distress, Alert. negative: Lethargic Eyes Bilateral: positive: Normal inspection, PERRL, No lid inflammation ENT: positive: ENT inspection nml, No signs of dehydration. negative: Purulent nasal drainage Neck: positive: Nml inspection, Trachea midline. negative: Thyromegaly, Tracheal deviation Respiratory: positive: Chest non-tender, No respiratory distress. negative: Wheezes, Rales, Rhonchi Cardiovascular: positive: Regular rate & rhythm, No murmur. negative: Tachycardia, Bradycardia, Systolic murmur, Diastolic murmur Peripheral Pulses: positive: 2+ Abdomen: positive: Non-tender, Nml bowel sounds, Other (pt has mild extended bowel). negative: Tenderness Rectal: positive: Other (pt still has scrotal and penile edema) Back: positive: Nml inspection. negative: CVA tenderness (R), CVA tenderness (L) Skin: positive: Color nml, Warm, Dry. negative: Cyanosis, Diaphoresis, Pallor Extremities: positive: Non-tender, Nml appearance. negative: Calf tenderness Neurologic/Psychiatric: positive: Oriented x3, Sensation nml, Mood/affect nml. negative: Weakness, Sensory loss, Facial droop, Slurred/abnml speech, Depressed mood/affect - LABS Result Diagrams: 03/29/20 04:30 03/29/20 04:30 - SEPSIS Current Stage of Sepsis: Ruled out - FOLLOW UP Follow Up: You were admitted here for anasarca from your liver failure. pt had three paracentesis to remove your ascites fluid in hospital. Your home medication Lasix dosage is increased to 40mg Bid, hold your home meds Losartan, resume your other home medications. drawer hardware worker help your arrange you see your GI doctor on next Friday04/03/20, and see your PCP on 04/07/20, please may followup with these appointments. You had palliative care consult in hospital, and may followup with palliative care as out -pt as well. Should your symptom return or worsen or your feeling of shortness of breath due to your accumulated ascite fluid, you may return ER or call 911 for help. - TIME SPENT Time Spent in Discharge (Minutes): 30"
[2020-03-29] MEDS ORDERED: METOPROLOL TARTRATE 25 MG TABLET PO SCH (21:00)
[2020-03-29] MEDS ORDERED: SPIRONOLACTONE 25 MG TABLET PO SCH (21:00)
== END 2020-03-29 14:45 | disposition home health service (06) | DRG 433 ==
LOC: ED 11:47 → MS2 15:56 → OBSVTOIN 03-20 11:05
PROVIDERS: ADMIT Internal Medicine; ATTEND Nurse Practitioner Gerontology
PROC: 0W9G3ZZ Drainage of Peritoneal Cavity, Percutaneous Approach (ICD-10-PCS; principal; 2020-03-19)
PROC: 0W9G3ZZ Drainage of Peritoneal Cavity, Percutaneous Approach (ICD-10-PCS; 2020-03-24)
PROC: 0W9G3ZZ Drainage of Peritoneal Cavity, Percutaneous Approach (ICD-10-PCS; 2020-03-28)
DX: K70.31 Alcoholic cirrhosis of liver with ascites (principal); E87.1 Hypo-osmolality and hyponatremia; K72.90 Hepatic failure, unspecified without coma; R60.1 Generalized edema; R53.1 Weakness; F10.20 Alcohol dependence, uncomplicated; E11.40 Type 2 diabetes mellitus with diabetic neuropathy, unspecified; E11.319 Type 2 diabetes mellitus with unspecified diabetic retinopathy without macular edema; Z79.4 Long term (current) use of insulin; E66.01 Morbid (severe) obesity due to excess calories; Z68.39 Body mass index [BMI] 39.0-39.9, adult; I10 Essential (primary) hypertension; M54.2 Cervicalgia; G89.29 Other chronic pain; N50.89 Other specified disorders of the male genital organs; N48.89 Other specified disorders of penis; R33.8 Other retention of urine; R00.0 Tachycardia, unspecified; F32.9 Major depressive disorder, single episode, unspecified; R06.02 Shortness of breath; Z51.5 Encounter for palliative care; R62.7 Adult failure to thrive; E11.65 Type 2 diabetes mellitus with hyperglycemia; E86.0 Dehydration; R16.0 Hepatomegaly, not elsewhere classified; R53.81 Other malaise; Z96.0 Presence of urogenital implants; E87.70 Fluid overload, unspecified; Z20.822 Contact with and (suspected) exposure to COVID-19
CPT/HCPCS: 0202U; 36415; 49083; 71045; 74177; 76705; 80048; 80053; 80306; 80320; 82105; 83036; 83690; 83735; 83880; 85025; 85027; 85610; 87635; 93005; 94640; 96365; 96366; 96367; 96375; 96376; 97010; 97110; 97116; 97161; 97166; 97530; 97535; 99222; 99232; 99233; 99284; 99285; A9270; G0378; J1170; J1200; J1815; J1940; P9047; Q9967

== ENCOUNTER 2020-03-31 23:04 | Emergency (ER) | payer MEDICAID ==
[2020-03-31 23:50] LABS: BASOPHILS # (AUTO) 0.1 10^3/uL (0.0-0.1); BASOPHILS % (AUTO) 1.6 %; EOSINOPHILS # (AUTO) 0.3 10^3/uL (0.0-0.7); HGB - HEMOGLOBIN 12.1 g/dL (14.0-18.0); LYMPHOCYTES # (AUTO) 1.5 10^3/uL (1.5-3.5); LYMPHOCYTES % (AUTO) 22.7 %; MEAN CORPUSCULAR HEMOGLOBIN 33.1 pg (27.0-31.0); MEAN CORPUSCULAR HGB CONC 33.8 g/dL (32.0-36.0); MEAN CORPUSCULAR VOLUME 97.8 fL (80.0-94.0); MEAN PLATELET VOLUME 9.9 fL (7.4-11.4); MONOCYTES # (AUTO) 0.9 10^3/uL (0.0-1.0); MONOCYTES % (AUTO) 12.9 %; NEUTROPHILS # (AUTO) 3.9 10^3/uL (1.5-6.6); NEUTROPHILS % (AUTO) 58.7 %; PLT - PLATELET COUNT 205 10^3/uL (130-450); RED BLOOD COUNT 3.66 10^6/uL (4.70-6.10); RED CELL DISTRIBUTION WIDTH 13.4 % (12.0-15.0); WHITE BLOOD COUNT 6.7 x10^3/uL (4.8-10.8)
[2020-04-01 00:15] LABS: ALBUMIN 2.5 g/dL (3.2-5.5); ALBUMIN/GLOBULIN RATIO 0.7 (1.0-2.2); BILIRUBIN,TOTAL 1.4 mg/dL (0.2-1.0); CALCIUM 8.7 mg/dL (8.5-10.3); CREATININE 0.9 mg/dL (0.6-1.2); TOTAL PROTEIN 6.2 g/dL (6.7-8.2)
[2020-04-01] MEDS ORDERED: DEXAMETHASONE 10 MG/ML VIAL IVP STA (00:56)
[2020-04-01] MEDS ORDERED: ALBUMIN 25% 12.5 GM/50 ML VIAL IV STA ×3 (00:56→00:57)
--- NOTE | 2020-04-01 01:48 | ED Physician Documentation ---
PD HPI DYSPNEA - Stated complaint Stated Complaint: SOA - Chief complaint Chief Complaint: Abd Pain - History obtained from History obtained from: Patient - History of Present Illness Timing - onset: Yesterday Timing - onset during: Rest Timing - duration: Days (2) Timing - details: Gradual onset, Still present Inciting event(s): Other (ascites has re-accumulated) Improved by: Rest, Sitting up Worsened by: Exertion, Laying flat, Coughing Associated symptoms: Bilateral edema. No: Fever, Cough, Hemoptysis, Wheezing, Chest pain / discomfort, Palpitations, Diaphoresis Similar symptoms before: Diagnosis (ascites from cirrhosis) Recently seen: Admitted - Additional information Additional information: 49-year-old male with a history of alcoholic cirrhosis, Hypertension and diabetes has had 2 admissions to the hospital since the beginning of February. He had low volume paracentesis done in his first hospitalization and he had 3 large volume paracentesis done in his second hospitalization with a total of 32 L of fluid taken off and he has been optimized on his diuresis. He has improvement in the swelling in his legs and in his scrotum and penis and he has reaccumulated enough ascites that he is feeling short of breath and he is expecting to go see the product delivery specialist in 3 days time. He does not feel that he will make it to that time without paracentesis. He states that the amount of fluid is not as much as what it has been previously. He is uncomfortable with this. He is up and ambulating doing much better than he had been doing prior to his admission. Review of Systems Constitutional: denies: Fever Eyes: denies: Decreased vision Ears: denies: Ear pain Nose: denies: Rhinorrhea / runny nose, Congestion Throat: denies: Sore throat Cardiac: denies: Chest pain / pressure Respiratory: reports: Dyspnea. denies: Cough GI: reports: Abdominal Pain, Abdominal Swelling. denies: Vomiting, Diarrhea : reports: Other (leg bag is present). denies: Dysuria Skin: reports: Rash (itching to the abdominal wall) Musculoskeletal: reports: Extremity swelling (improved). denies: Neck pain, Back pain, Extremity pain Neurologic: denies: Generalized weakness, Focal weakness, Numbness PD PAST MEDICAL HISTORY - Past Medical History Cardiovascular: Hypertension, High cholesterol Respiratory: Asthma Neuro: Peripheral neuropathy Endocrine/Autoimmune: Type 2 diabetes GI: Cirrhosis : Retention, Indwelling catheter HEENT: Chronic vision loss Psych: Depression, Anxiety Musculoskeletal: Osteoarthritis Derm: Psoriasis, Other - Past Surgical History Past Surgical History: Yes Ortho: Arthroscopic surgery - Present Medications Home Medications: Ambulatory Orders Medication Instructions Recorded Confirmed Atorvastatin [Lipitor] 40 mg PO QPM 08/17/14 03/19/20 Albuterol Sulfate [Proair Hfa 1 - 2 puffs INH Q4H PRN 11/13/16 03/19/20 Inhaler] Aspirin [Adult Low Dose Aspirin EC] 81 mg PO DAILY 11/13/16 03/19/20 Insulin Glargine,Hum.rec.anlog 65 units SUBQ DAILY PM 11/13/16 03/19/20 [Basaglar Kwikpen U-100] Insulin Regular, Human [Humulin R] 15 - 30 units SUBQ TIDWM 11/13/16 03/19/20 Fluticasone Propionate [Flovent 1 puffs IH DAILY 02/15/20 03/19/20 Diskus] Metoprolol Tartrate [Lopressor] 25 mg PO BID 02/15/20 03/19/20 Multivitamin W/Minerals [Theragran 1 tab PO DAILY 02/15/20 03/19/20 M] buPROPion HCL [Bupropion HCl Sr] 150 mg PO BID 02/15/20 03/19/20 Spironolactone [Aldactone] 75 mg PO 0800,1300 #180 tablet 02/24/20 03/19/20 Clotrimazole/Betamethasone Crm 1 applic TOP BID #30 g 03/04/20 03/19/20 [Lotrisone Cream] Furosemide [Lasix] 40 mg PO BIDDIURETIC #30 tablet 03/29/20 Multivitamin W/Minerals [Theragran 1 tab PO DAILY #30 tablet 03/29/20 M] Thiamine [Vitamin B-1] 100 mg PO DAILY #30 tablet 03/29/20 - Allergies Allergies/Adverse Reactions: Allergies Allergy/AdvReac Type Severity Reaction Status Date / Time lisinopril Allergy Unknown Verified 03/31/20 23:11 - Social History Does the pt smoke?: No Smoking Status: Never smoker Does the pt drink ETOH?: Yes Does the pt have substance abuse?: No - Immunizations Immunizations are current?: Yes - POLST Patient has POLST: No PD ED PE NORMAL - Vitals Vital signs reviewed: Yes (tachy and hypertensive ) - General General: Alert and oriented X 3, No acute distress, Well developed/nourished - HEENT HEENT: Atraumatic, PERRL, EOMI - Neck Neck: Supple, no meningeal sign, No bony TTP - Cardiac Cardiac: No murmur, Other (tachy to 110) - Respiratory Respiratory: No respiratory distress, Clear bilaterally - Abdomen Abdomen: Other (distended and tense without pain to palpation ) - Back Back: No CVA TTP, No spinal TTP - Derm Derm: Normal color, Warm and dry, No rash - Extremities Extremities: No deformity, Other (venous stasis present bilat with 1+ pitting edema) - Neuro Neuro: Alert and oriented X 3, beauty consultant 2-12 intact, No motor deficit, No sensory deficit, Normal speech Eye Opening: Spontaneous Motor: Obeys Commands Verbal: Oriented GCS Score: 15 - Psych Psych: Normal mood, Normal affect Results - Vitals Vitals: Vital Signs - 24 hr 03/31/20 04/01/20 04/01/20 23:07 02:20 02:52 Temperature 36.2 C L 36.2 C L Heart Rate 105 H 95 94 Respiratory 20 16 16 Rate Blood Pressure 137/73 H 125/74 120/71 O2 Saturation 100 95 95 04/01/20 04:16 Temperature Heart Rate 91 Respiratory 16 Rate Blood Pressure 128/74 O2 Saturation 95 Oxygen O2 Source Room air - Labs Labs: Microbiology 04/01/20 00:51 Body Fluid Culture - Preliminary Ascities Fluid Laboratory Tests 03/31/20 03/31/20 04/01/20 23:30 23:30 00:51 WBC 6.7 RBC 3.66 L Hgb 12.1 L Hct 35.8 L MCV 97.8 H MCH 33.1 H MCHC 33.8 RDW 13.4 Plt Count 205 MPV 9.9 Neut # (Auto) 3.9 Lymph # (Auto) 1.5 Towner # (Auto) 0.9 Eos # (Auto) 0.3 Baso # (Auto) 0.1 Absolute Nucleated RBC 0.00 Nucleated RBC % 0.0 Sodium 130 L Potassium 4.6 Chloride 101 Carbon Dioxide 24 Anion Gap 5.0 L BUN 37 H Creatinine 0.9 Estimated GFR (MDRD) 89 Glucose 379 H Calcium 8.7 Total Bilirubin 1.4 H AST 42 ALT 25 Alkaline Phosphatase 80 Total Protein 6.2 L Albumin 2.5 L Globulin 3.7 Albumin/Globulin Ratio 0.7 L Lipase 106 H Fluid Source PERITONEAL Fluid Color YELLOW Fluid Clarity CLEAR Fluid WBC 122 Fluid RBC 3000 Fluid Neutrophils % 1 Fluid Lymphocytes % 71 Fluid Monocytes % 28 Procedures - Paracentesis Preparation: Consent obtained, Ultrasound guidance, Sterile prep and drape, Local anesthesia (1% lidocaine) Location: RLQ Technique: Catheter over needle Fluid: Clear, Sent for cell count, Sent for gram stain, Sent for culture, Volume - enter cc (5000) Aftercare: Patient tolerated well, Dressing applied, Fluid leak - comment (sutured with 4-0 nylon) PD MEDICAL DECISION MAKING - ED course Complexity details: reviewed old records, reviewed results, re-evaluated patient, considered differential, d/w patient ED course: 49-year-old male with advanced liver disease ascites and peripheral edema has reaccumulated his ascites rapidly despite the use of the diuretic and the diuretic does appear to be working as far as keeping the rest of his peripheral edema and check. He is not having the scrotal swelling was having previously. His legs are less swollen than previously. He is having some trouble with his breathing secondary to the ascites. He does not otherwise feel ill. He feels much improved from prior to admission. Here in the emergency department the patient is consented and large volume paracentesis is performed with removal of 5 L of straw-colored fluid. The patient was subsequently administered 37-1/2 g of albumin intravenously. He was also given 10 mg of dexamethasone intravenously. This 49-year-old male with advanced liver disease and sobriety has improved dramatically from the descriptions given in his last 2 admissions. He has started to respond to the diuretic but he is not tolerating the ascites. I suspect this is because his ambulating and more active than he was when he had to have 13 liters drained. He has follow up with GI in 2 days. I have encouraged him to get his standing order for paracentesis to be done as outpatient. Departure - Departure Disposition: 01 Home, Self Care Clinical Impression: Ascites due to alcoholic cirrhosis Ascites Qualifiers: Ascites type: due to alcoholic cirrhosis Qualified Code(s): K70.31 - Alcoholic cirrhosis of liver with ascites Condition: Stable Instructions: Paracentesis Dc, ED Ascites, ED Cirrhosis Liver Follow-Up: Montrell Brady MD [Primary Care Provider] - Comments: Follow up with your GI specialist as planned. Discharge Date/Time: 04/01/20 04:27
[2020-04-01 03:04] LABS: CC,BF RBC 3000 /mm^3
[2020-04-01 03:07] LABS: BF CLARITY CLEAR; BF COLOR YELLOW; BF SOURCE PERITONEAL
[2020-04-01 03:45] LABS: LYMPHOCYTES %,BODY FLUID 71 %; MONOCYTES %,BODY FLUID 28 %
[2020-04-01 04:17] VITALS: BP 128/74
== END 2020-04-01 04:27 | disposition home or self-care (01) ==
LOC: ED 23:04
DX: K70.31 Alcoholic cirrhosis of liver with ascites (principal); E11.42 Type 2 diabetes mellitus with diabetic polyneuropathy; Z79.4 Long term (current) use of insulin; I10 Essential (primary) hypertension
CPT/HCPCS: 49082; 80053; 83690; 85025; 87070; 87205; 89051; 96365; 96366; 96375; 99284; P9047; 36415

== ENCOUNTER 2020-04-04 10:15 | Emergency (ER) | payer MEDICAID ==
[2020-04-04 10:48] VITALS: BP 131/79
--- NOTE | 2020-04-04 10:55 | ED Physician Documentation ---
PD HPI ABD PAIN - Stated complaint Stated Complaint: SOA - Chief complaint Chief Complaint: Abd Pain - History obtained from History obtained from: Patient - History of Present Illness Timing - onset: Chronic Timing - details: Gradual onset Pain level max: 0 Pain level now: 0 Improved by: Other (nothing) Worsened by: Other (nothing) Associated symptoms: No: Fever, Vomiting, Diarrhea - Additional information Additional information: Patient is a 49-year-old male who presents to the emergency department with liver cirrhosis. He states that he was told anytime he would like to have an elective paracentesis done he can come to the emergency department to have this done. He is mildly short of breath with exertion. He is not hypoxic. He is not in respiratory distress. Patient states that his spironolactone was recently increased from 150 mg to 300 mg daily by his GI doctor. He states he has not started this yet. He is also on Lasix 40 mg daily. Patient states that he has a referral set up for [facility] to have elective paracentesis performed, but he states he does not want to drive that far. Review of Systems Constitutional: denies: Fever, Chills GI: denies: Vomiting Skin: denies: Rash Musculoskeletal: denies: Neck pain, Back pain Neurologic: denies: Focal weakness, Numbness, Headache PD PAST MEDICAL HISTORY - Past Medical History Past Medical History: Yes Cardiovascular: Hypertension, High cholesterol Respiratory: Asthma Neuro: Peripheral neuropathy Endocrine/Autoimmune: Type 2 diabetes GI: Cirrhosis : Retention, Indwelling catheter HEENT: Chronic vision loss Psych: Depression, Anxiety Musculoskeletal: Osteoarthritis Derm: Psoriasis, Other - Past Surgical History Past Surgical History: Yes Ortho: Arthroscopic surgery - Present Medications Home Medications: Ambulatory Orders Medication Instructions Recorded Confirmed Atorvastatin [Lipitor] 40 mg PO QPM 08/17/14 04/04/20 Albuterol Sulfate [Proair Hfa 1 - 2 puffs INH Q4H PRN 11/13/16 04/04/20 Inhaler] Aspirin [Adult Low Dose Aspirin EC] 81 mg PO DAILY 11/13/16 04/04/20 Insulin Glargine,Hum.rec.anlog 65 units SUBQ DAILY PM 11/13/16 04/04/20 [Basaglar Kwikpen U-100] Insulin Regular, Human [Humulin R] 15 - 30 units SUBQ TIDWM 11/13/16 04/04/20 Fluticasone Propionate [Flovent 1 puffs IH DAILY 02/15/20 04/04/20 Diskus] Multivitamin W/Minerals [Theragran 1 tab PO DAILY 02/15/20 04/04/20 M] buPROPion HCL [Bupropion HCl Sr] 150 mg PO BID 02/15/20 04/04/20 Clotrimazole/Betamethasone Crm 1 applic TOP BID #30 g 03/04/20 04/04/20 [Lotrisone Cream] Furosemide [Lasix] 40 mg PO BIDDIURETIC #30 tablet 03/29/20 04/04/20 Multivitamin W/Minerals [Theragran 1 tab PO DAILY #30 tablet 03/29/20 04/04/20 M] Thiamine [Vitamin B-1] 100 mg PO DAILY #30 tablet 03/29/20 04/04/20 Furosemide [Lasix] 80 mg PO DAILY #20 tablet 04/04/20 Spironolactone [Aldactone] 300 mg PO DAILY 04/04/20 04/04/20 - Allergies Allergies/Adverse Reactions: Allergies Allergy/AdvReac Type Severity Reaction Status Date / Time lisinopril Allergy Unknown Verified 04/04/20 10:30 - Social History Does the pt smoke?: No Smoking Status: Never smoker Does the pt drink ETOH?: Yes Does the pt have substance abuse?: No - Immunizations Immunizations are current?: Yes - POLST Patient has POLST: No PD ED PE NORMAL - Vitals Vital signs reviewed: Yes - General General: Alert and oriented X 3, No acute distress - HEENT HEENT: Moist mucous membranes - Neck Neck: Supple, no meningeal sign - Cardiac Cardiac: RRR - Respiratory Respiratory: No respiratory distress, Clear bilaterally - Abdomen Abdomen: Soft, Other (Mild distention. Not tense. Soft. Nontender.) - Derm Derm: Warm and dry - Neuro Neuro: Alert and oriented X 3 Results - Vitals Vitals: Vital Signs - 24 hr 04/04/20 04/04/20 10:27 10:46 Temperature 36.5 C Heart Rate 108 H 102 H Respiratory 18 20 Rate Blood Pressure 122/82 H 131/79 H O2 Saturation 99 100 Oxygen O2 Source Room air PD MEDICAL DECISION MAKING - ED course Complexity details: considered differential (no SBP, no pleural effusions, no hypoxia, no resp distress.), d/w patient ED course: 49-year-old male presenting to the emergency department requesting an elective paracentesis for his ascites. He is not hypoxic. He is not tachypneic. He is not in respiratory distress. Ambulating up and down the hallways of the emergency department with no visible respiratory issue. Speaking in full sentences. Discussed with the patient that it is safer to have this performed in a controlled radiology setting. He states that his doctor sent to the referral to [facility] rather than would be and he does not want to drive to [facility] to have the paracentesis performed. Therefore he came here to have it perfor [facility]. He was supposed to increase his spironolactone to 300 mg daily instead of 100 daily. He has not done this yet. He is only on 40 mg of Lasix as well. Patient became irate that I would not perform an elective paracentesis in the emergency department for his ascites. I explained to him several times the risk of infection, increased mortality rate and the increased rate of recurrence with frequent drainage as well as no indication for emergent paracentesis at this time. Patient continued to become irate and demanded that he be discharged from the hospital. Patient discharged. This document was made in part using voice recognition software. While efforts are made to proofread this document, sound alike and grammatical errors may occur. Departure - Departure Disposition: 01 Home, Self Care Clinical Impression: Cirrhosis Qualifiers: Hepatic cirrhosis type: unspecified hepatic cirrhosis Ascites presence: with ascites Qualified Code(s): K74.60 - Unspecified cirrhosis of liver Ascites Qualifiers: Ascites type: other type Qualified Code(s): R18.8 - Other ascites Condition: Good Instructions: ED Ascites Follow-Up: Montrell Brady MD [Primary Care Provider] - Within 1 week Prescriptions: Furosemide [Lasix] 80 mg PO DAILY #20 tablet Comments: As your asbestos worker helper prescribed, you need to increase your spironolactone to 300 mg/day. We will increase your Lasix to 80 mg/day. Your asbestos worker helper can send a referral to the hospital for radiology to perform elective paracentesis on you. The emergency department is only for emergent paracentesis. As we discussed paracentesis increases your rate of mortality, ascites recurrence, your risk of infection and your risk of . Discharge Date/Time: 04/04/20 11:05
== END 2020-04-04 11:05 | disposition home or self-care (01) ==
LOC: ED 10:15
DX: K74.60 Unspecified cirrhosis of liver (principal); R18.8 Other ascites; E11.42 Type 2 diabetes mellitus with diabetic polyneuropathy; Z79.4 Long term (current) use of insulin; I10 Essential (primary) hypertension
CPT/HCPCS: 99284

== ENCOUNTER 2020-04-04 22:24 | Emergency (ER) | payer MEDICAID ==
--- NOTE | 2020-04-04 22:29 | ED Physician Documentation ---
PD HPI ABD PAIN - Stated complaint Stated Complaint: SOA, ABD DISCOMFORT - History obtained from History obtained from: Patient - History of Present Illness Timing - onset: How many days ago (has had increased abd distension and feeling of dyspnea from the fullness. Here earlier today and it was felt not impeding breathing enough to warrant tapping. Patient says he is having worse feeling of dyspnea, more notable when lying down to sleep. Worse symptoms than earlier today.) Timing - duration: Days Timing - details: Gradual onset Quality: Cramping, Aching, Fullness/distended PD PAST MEDICAL HISTORY - Past Medical History Cardiovascular: Hypertension, High cholesterol Respiratory: Asthma Neuro: Peripheral neuropathy Endocrine/Autoimmune: Type 2 diabetes GI: Cirrhosis : Retention, Indwelling catheter HEENT: Chronic vision loss Psych: Depression, Anxiety Musculoskeletal: Osteoarthritis Derm: Psoriasis, Other - Past Surgical History Past Surgical History: Yes Ortho: Arthroscopic surgery - Present Medications Home Medications: Ambulatory Orders Medication Instructions Recorded Confirmed Atorvastatin [Lipitor] 40 mg PO QPM 08/17/14 04/04/20 Albuterol Sulfate [Proair Hfa 1 - 2 puffs INH Q4H PRN 11/13/16 04/04/20 Inhaler] Aspirin [Adult Low Dose Aspirin EC] 81 mg PO DAILY 11/13/16 04/04/20 Insulin Glargine,Hum.rec.anlog 65 units SUBQ DAILY PM 11/13/16 04/04/20 [Basaglar Kwikpen U-100] Insulin Regular, Human [Humulin R] 15 - 30 units SUBQ TIDWM 11/13/16 04/04/20 Fluticasone Propionate [Flovent 1 puffs IH DAILY 02/15/20 04/04/20 Diskus] Multivitamin W/Minerals [Theragran 1 tab PO DAILY 02/15/20 04/04/20 M] buPROPion HCL [Bupropion HCl Sr] 150 mg PO BID 02/15/20 04/04/20 Clotrimazole/Betamethasone Crm 1 applic TOP BID #30 g 03/04/20 04/04/20 [Lotrisone Cream] Furosemide [Lasix] 40 mg PO BIDDIURETIC #30 tablet 03/29/20 04/04/20 Multivitamin W/Minerals [Theragran 1 tab PO DAILY #30 tablet 03/29/20 04/04/20 M] Thiamine [Vitamin B-1] 100 mg PO DAILY #30 tablet 03/29/20 04/04/20 Furosemide [Lasix] 80 mg PO DAILY #20 tablet 04/04/20 Spironolactone [Aldactone] 300 mg PO DAILY 04/04/20 04/04/20 - Allergies Allergies/Adverse Reactions: Allergies Allergy/AdvReac Type Severity Reaction Status Date / Time lisinopril Allergy Unknown Verified 04/04/20 22:31 - Social History Does the pt smoke?: No Smoking Status: Never smoker Does the pt drink ETOH?: Yes Does the pt have substance abuse?: No - Immunizations Immunizations are current?: Yes - POLST Patient has POLST: No PD ED PE NORMAL - Vitals Vital signs reviewed: Yes - General General: Alert and oriented X 3, Well developed/nourished, Other (appears uncomfortable due to abd pressure. Mild tachypnea lying reclined. ) - Neck Neck: Supple, no meningeal sign, No adenopathy - Cardiac Cardiac: RRR (mild tachycardia, regular), No murmur - Respiratory Respiratory: Clear bilaterally - Abdomen Abdomen: Other (The abdomen is tensely full with general tenderness. There are some scratch beach on the abdomen which she says is from itching. No signs of open wounds, cellulitis, sores. Bowel sounds are hypoactive. There is dullness to percussion throughout the abdomen.) - Male Male : Other (singificantly less edema scrotally than previously. Penis is visible with catheter indwelling. He says he would hope to get catheter out soon, now that he has less scrotal/penile swelling. ) - Derm Derm: Normal color, Warm and dry - Extremities Extremities: Normal ROM s pain, No calf tenderness / cord, Other (1+ edema in lower legs. ) - Neuro Neuro: Alert and oriented X 3, No motor deficit, Normal speech Results - Vitals Vitals: Vital Signs - 24 hr 04/04/20 04/05/20 04/05/20 22:27 00:30 01:15 Temperature 37.0 C 36.8 C Heart Rate 111 H 101 H 106 H Respiratory 23 22 Rate Blood Pressure 153/85 H 137/83 H 116/76 O2 Saturation 98 99 98 Oxygen O2 Source Room air - Labs Labs: Microbiology 04/05/20 00:15 Body Fluid Culture - Preliminary Ascities Fluid Laboratory Tests 04/04/20 04/04/20 04/05/20 22:46 22:46 00:15 WBC 6.3 RBC 3.54 L Hgb 11.7 L Hct 33.9 L MCV 95.8 H MCH 33.1 H MCHC 34.5 RDW 13.2 Plt Count 168 MPV 9.6 Neut # (Auto) 3.7 Lymph # (Auto) 1.5 [place] # (Auto) 0.8 Eos # (Auto) 0.2 Baso # (Auto) 0.1 Absolute Nucleated RBC 0.00 Nucleated RBC % 0.0 Sodium 128 L Potassium 4.8 Chloride 96 L Carbon Dioxide 24 Anion Gap 8.0 BUN 36 H Creatinine 1.0 Estimated GFR (MDRD) 79 L Glucose 481 H Calcium 8.8 Total Bilirubin 1.5 H AST 36 ALT 34 Alkaline Phosphatase 87 Total Protein 6.1 L Albumin 2.7 L Globulin 3.4 Albumin/Globulin Ratio 0.8 L Fluid Source PERITONEAL Fluid Color STRAW Fluid Clarity HAZY Fluid WBC 134 Fluid RBC < 3000 Fluid Neutrophils % 4 Fluid Lymphocytes % 60 Fluid Monocytes % 9 Fluid Basophils % 0 Fluid Macrophages % 27 Fld Mesothelial Cell % 0 Procedures - Paracentesis Preparation: Consent obtained, Ultrasound guidance, Sterile prep and drape, Local anesthesia Location: RLQ Technique: Catheter over needle Fluid: Clear, Sent for cell count, Sent for gram stain, Sent for culture, Volume - enter cc ([id number]) Aftercare: No complications, Patient tolerated well, Dressing applied PD MEDICAL DECISION MAKING - ED course Complexity details: reviewed old records, re-evaluated patient (he is feeling better breathing and less abd pain after the procedure. ), considered differential (I will have to take him at his word that he is having increased symptoms since earlier today. I discussed with him that ER paracentesis is meant to be for urgently symptomatic patients and not routine. He states he is feeling significantly short of breath with walking and particularly with lying.), d/w patient ED course: During the history and physical, we had a discussion about my concern that he had been here earlier and is now back requesting the similar procedure. I felt that he was playing providers between each other. His does states he truly feels that he is more short of breath than he was earlier today and would not have come back otherwise. As such we had a shared decision to do a paracentesis to drain some fluid. He did have some apparent discomfort of breathing while lying prior to the procedure. We did discuss that the fluid will reaccumulate frequently. He is needs to follow-up with his primary care and sap bw bi developer to arrange regular scheduled paracenteses. He states he has an appointment with his GI next week. He will continue with his increased diuretic doses. He is feeling more comfortable after drainage of fluid here. No complications were encountered. Departure - Departure Disposition: 01 Home, Self Care Clinical Impression: Blunt catheter in place Ascites Qualifiers: Ascites type: due to alcoholic cirrhosis Qualified Code(s): K70.31 - Alcoholic cirrhosis of liver with ascites Cirrhosis Qualifiers: Hepatic cirrhosis type: unspecified hepatic cirrhosis Ascites presence: with ascites Qualified Code(s): K74.60 - Unspecified cirrhosis of liver Dyspnea Qualifiers: Dyspnea type: orthopnea Qualified Code(s): R06.01 - Orthopnea Condition: Stable Record reviewed to determine appropriate education?: Yes Instructions: ED Ascites Follow-Up: Montrell Brady MD [Primary Care Provider] - Comments: Follow-up with Dr. Brady and also your sap bw bi developer to arrange regular scheduled outpatient paracenteses as your abdomen most certainly will reaccumulate fluid. Planned outpatient procedures are the more proper treatment regimen for this rather than episodic drainage in the ER when it gets "too full". Discussed with your sap bw bi developer other potential options to treat this. Sometimes there are surgical procedures to shunt blood around the liver so there is less ascites accumulate. Your sap bw bi developer would be the most expert on the indications for this. Regarding your Blunt catheter, clamp it off to allow the bladder to fill periodically and drain off the catheter every 4-6 hours or so. This will train the bladder to fill in empty more regularly again. This bladder training is a step before getting the catheter removed. Follow-up with your primary about this as well. Discharge Date/Time: 04/05/20 01:14
[2020-04-04 23:06] LABS: BASOPHILS # (AUTO) 0.1 10^3/uL (0.0-0.1); BASOPHILS % (AUTO) 1.4 %; EOSINOPHILS # (AUTO) 0.2 10^3/uL (0.0-0.7); HGB - HEMOGLOBIN 11.7 g/dL (14.0-18.0); LYMPHOCYTES # (AUTO) 1.5 10^3/uL (1.5-3.5); LYMPHOCYTES % (AUTO) 23.1 %; MEAN CORPUSCULAR HEMOGLOBIN 33.1 pg (27.0-31.0); MEAN CORPUSCULAR HGB CONC 34.5 g/dL (32.0-36.0); MEAN CORPUSCULAR VOLUME 95.8 fL (80.0-94.0); MEAN PLATELET VOLUME 9.6 fL (7.4-11.4); MONOCYTES # (AUTO) 0.8 10^3/uL (0.0-1.0); MONOCYTES % (AUTO) 13.2 %; NEUTROPHILS # (AUTO) 3.7 10^3/uL (1.5-6.6); PLT - PLATELET COUNT 168 10^3/uL (130-450); RED BLOOD COUNT 3.54 10^6/uL (4.70-6.10); RED CELL DISTRIBUTION WIDTH 13.2 % (12.0-15.0); WHITE BLOOD COUNT 6.3 x10^3/uL (4.8-10.8)
[2020-04-04 23:18] LABS: ALBUMIN 2.7 g/dL (3.2-5.5); ALBUMIN/GLOBULIN RATIO 0.8 (1.0-2.2); BILIRUBIN,TOTAL 1.5 mg/dL (0.2-1.0); CALCIUM 8.8 mg/dL (8.5-10.3); TOTAL PROTEIN 6.1 g/dL (6.7-8.2)
[2020-04-05 01:00] LABS: BF CLARITY HAZY; BF COLOR STRAW; BF SOURCE PERITONEAL; CC,BF RBC < 3000 /mm^3
[2020-04-05 01:17] VITALS: BP 116/76
[2020-04-05 01:19] LABS: BASOPHILS %,BODY FLUID 0 %; LYMPHOCYTES %,BODY FLUID 60 %; MACROPHAGES %,BODY FLUID 27 %; MESOTHELIAL %, BF 0 %; MONOCYTES %,BODY FLUID 9 %
== END 2020-04-05 01:14 | disposition home or self-care (01) ==
LOC: ED 22:24
DX: K70.31 Alcoholic cirrhosis of liver with ascites (principal); E11.42 Type 2 diabetes mellitus with diabetic polyneuropathy; Z79.4 Long term (current) use of insulin; I10 Essential (primary) hypertension
CPT/HCPCS: 49082; 80053; 85025; 87070; 87205; 89051

== ENCOUNTER 2020-04-05 15:42 | Emergency (ER) | payer MEDICAID ==
[2020-04-05 19:34] VITALS: BP 121/75
== END 2020-04-05 20:48 | disposition left against medical advice (07) ==
LOC: ED 15:42
DX: Z53.21 Procedure and treatment not carried out due to patient leaving prior to being seen by health care provider (principal)

== ENCOUNTER 2020-04-10 08:15 | Outpatient (CLI) | payer MEDICAID ==
[2020-04-10 09:24] LABS: % IRON SATURATION 38 % (20-50); IRON 97 ug/dL (45-182); TOTAL IRON BINDING CAPACITY 256 ug/dL (250-450); TRANSFERRIN 183 mg/dL (180-329)
[2020-04-11 12:37] LABS: HEPATITIS C ANTIBODY NON-REACTIVE (NON-REACTIVE)
[2020-04-12 12:22] LABS: ANA SCREEN NEGATIVE (NEGATIVE)
[2020-04-13 22:27] LABS: LIVER KIDNEY MICROSOME AB <20.0 U
== END 2020-04-10 08:16 | disposition home or self-care (01) ==
LOC: LAB 08:15
PROVIDERS: ATTEND Internal Medicine
DX: E11.65 Type 2 diabetes mellitus with hyperglycemia (principal); Z79.4 Long term (current) use of insulin; K70.31 Alcoholic cirrhosis of liver with ascites
CPT/HCPCS: 36415; 81599; 82390; 82607; 82728; 83036; 83540; 84466; 86038; 86317; 86376; 86704; 86709; 86803

== ENCOUNTER 2020-04-10 15:03 | Emergency (ER) | payer MEDICAID ==
[2020-04-10 15:17] VITALS: BP 143/76
--- NOTE | 2020-04-10 16:07 | ED Physician Documentation ---
History of Present Illness - Stated complaint Stated Complaint: SOA - Chief complaint Chief Complaint: Resp - History obtained from History obtained from: Patient - Additonal information Additional information: 49-year-old gentleman with alcoholic cirrhosis presents today requesting paracentesis due to discomfort and shortness of breath. He is taking his diuretics he says and has an appointment in 2 days for paracentesis. He had outpatient labs done earlier in the day which were reviewed. Review of Systems Constitutional: reports: Reviewed and negative Eyes: reports: Reviewed and negative Ears: reports: Reviewed and negative Nose: reports: Reviewed and negative Throat: reports: Reviewed and negative Cardiac: reports: Reviewed and negative PD PAST MEDICAL HISTORY - Past Medical History Cardiovascular: Hypertension, High cholesterol Respiratory: Asthma Neuro: Peripheral neuropathy Endocrine/Autoimmune: Type 2 diabetes GI: Cirrhosis : Retention, Indwelling catheter HEENT: Chronic vision loss Psych: Depression, Anxiety Musculoskeletal: Osteoarthritis Derm: Psoriasis, Other - Past Surgical History Past Surgical History: Yes Ortho: Arthroscopic surgery - Present Medications Home Medications: Ambulatory Orders Medication Instructions Recorded Confirmed Atorvastatin [Lipitor] 40 mg PO QPM 08/17/14 04/10/20 Albuterol Sulfate [Proair Hfa 1 - 2 puffs INH Q4H PRN 11/13/16 04/10/20 Inhaler] Aspirin [Adult Low Dose Aspirin EC] 81 mg PO DAILY 11/13/16 04/10/20 Insulin Glargine,Hum.rec.anlog 65 units SUBQ DAILY PM 11/13/16 04/10/20 [Basaglar Kwikpen U-100] Insulin Regular, Human [Humulin R] 15 - 30 units SUBQ TIDWM 11/13/16 04/10/20 Fluticasone Propionate [Flovent 1 puffs IH DAILY 02/15/20 04/10/20 Diskus] buPROPion HCL [Bupropion HCl Sr] 150 mg PO BID 02/15/20 04/10/20 Clotrimazole/Betamethasone Crm 1 applic TOP BID #30 g 03/04/20 04/10/20 [Lotrisone Cream] Multivitamin W/Minerals [Theragran 1 tab PO DAILY #30 tablet 03/29/20 04/10/20 M] Spironolactone [Aldactone] 100 mg PO DAILY 01/19/21 01/25/21 Furosemide [Lasix] 40 mg PO DAILY 04/10/20 04/10/20 - Allergies Allergies/Adverse Reactions: Allergies Allergy/AdvReac Type Severity Reaction Status Date / Time lisinopril Allergy Unknown Verified 04/10/20 15:16 - Social History Does the pt smoke?: No Smoking Status: Never smoker Does the pt drink ETOH?: No Does the pt have substance abuse?: No - Immunizations Immunizations are current?: Yes - POLST Patient has POLST: No PD ED PE NORMAL - Vitals Vital signs reviewed: Yes - General General: Alert and oriented X 3, No acute distress, Other (He is in no visible discomfort, he is laying flat in bed sleeping when I initially evaluated him. He was easily arousable without evidence of asterixis.) - Respiratory Respiratory: No respiratory distress, Clear bilaterally - Abdomen Abdomen: Other (He has ascites, it is not tender or tense.) - Extremities Extremities: Other (Mild pedal edema) - Neuro Neuro: Alert and oriented X 3, Normal speech Results - Vitals Vitals: Vital Signs - 24 hr 04/10/20 15:12 Temperature 36.4 C L Heart Rate 104 H Respiratory 16 Rate Blood Pressure 143/76 H O2 Saturation 100 Oxygen O2 Source Room air PD MEDICAL DECISION MAKING - ED course ED course: 49-year-old gentleman presents to the emergency department requesting paracentesis. There is no indication for emergent paracentesis and he is advised to keep his appointment which is in 2 days. We had received an email earlier in the week from his primary care physician requesting that if and when he presents to the emergency department we have social work see him to consider SNF placement. I discussed this with him and he refuses. Departure - Departure Disposition: Home, Self Care Clinical Impression: Ascites due to alcoholic cirrhosis Condition: Good Record reviewed to determine appropriate education?: Yes Instructions: ED Cirrhosis Liver Comments: Keep your appointment for elective paracentesis in 2 days. Return for new or worsening symptoms. Discharge Date/Time: 04/10/20 16:10
== END 2020-04-10 16:10 | disposition home or self-care (01) ==
LOC: ED 15:03
DX: K70.31 Alcoholic cirrhosis of liver with ascites (principal); I10 Essential (primary) hypertension; E11.65 Type 2 diabetes mellitus with hyperglycemia; Z79.4 Long term (current) use of insulin
CPT/HCPCS: 36415; 81599; 82390; 82607; 82728; 83036; 83540; 84466; 86038; 86317; 86376; 86704; 86709; 86803; 99281; 99283

== ENCOUNTER 2020-04-12 08:31 | Outpatient (CLI) | payer MEDICAID ==
--- NOTE | 2020-04-12 12:47 | Ultrasound Report ---
PROCEDURE: Abdominal Paracentesis INDICATIONS: ALCOHOLIC LIVER DISEASE, ASCITES TECHNIQUE: The indications, alternatives, benefits, risks, and complications of the procedure were explained to the patient. Written informed consent was obtained and placed in the chart. The abdomen and pelvis were examined sonographically, and an appropriate site was chosen for paracentesis. The skin was pre pared and draped in the usual sterile fashion, and 1% lidocaine was infiltrated from the skin down th rough the peritoneal surface. A 19-gauge catheter-covered needle was then introduced into the perito valerie space, the catheter was advanced and the needle was withdrawn, and thereafter peritoneal fluid w as withdrawn. The catheter was then removed and a dressing was applied. The fluid was discarded if the clinician did not order diagnostic testing of the fluid. COMPARISON: Normal FINDINGS: Access site: Left lower quadrant Needle: One-Step centesis catheter with introducer needle. Fluid volume and description: Clear yellow Fluid sent for diagnostic testin.5 L Medications: 1% lidocaine for local anaesthesia. Complications: None. IMPRESSION: Successful ultrasound-guided paracentesis. Reviewed by: Joanne Cabral MD on 04/12/2020 12:46 PM PST Approved by: Joanne Cabral MD on 04/12/2020 12:46 PM PST Station ID: [id number]
== END 2020-04-12 08:32 | disposition home or self-care (01) ==
LOC: DI 08:31
PROVIDERS: ATTEND Family Medicine
DX: K70.31 Alcoholic cirrhosis of liver with ascites (principal)
CPT/HCPCS: 49083

== ENCOUNTER 2020-04-14 10:13 | Outpatient (CLI) | payer MEDICAID ==
[2020-04-14 10:17] LABS: HGB - HEMOGLOBIN 11.6 g/dL (14.0-18.0); MEAN CORPUSCULAR HGB CONC 33.8 g/dL (32.0-36.0); MEAN CORPUSCULAR VOLUME 97.7 fL (80.0-94.0); MEAN PLATELET VOLUME 10.2 fL (7.4-11.4); RED BLOOD COUNT 3.51 10^6/uL (4.70-6.10); RED CELL DISTRIBUTION WIDTH 13.5 % (12.0-15.0); WHITE BLOOD COUNT 6.5 x10^3/uL (4.8-10.8)
[2020-04-14 10:32] LABS: INR 1.2 (0.8-1.2); PT - PROTHROMBIN TIME 13.6 secs (9.9-12.6)
[2020-04-14 10:39] LABS: PARTIAL THROMBOPLASTIN TIME 30.1 secs (24.9-33.3)
--- NOTE | 2020-04-14 16:59 | Ultrasound Report ---
PROCEDURE: Abdominal Paracentesis INDICATIONS: ASCITES TECHNIQUE: The indications, alternatives, benefits, risks, and complications of the procedure were explained to the patient. Written informed consent was obtained and placed in the chart. The abdomen and pelvis were examined sonographically, and an appropriate site was chosen for paracentesis. The skin was pre pared and draped in the usual sterile fashion, and 1% lidocaine was infiltrated from the skin down th rough the peritoneal surface. A 19-gauge catheter-covered needle was then introduced into the perito valerie space, the catheter was advanced and the needle was withdrawn, and thereafter peritoneal fluid w as withdrawn. The catheter was then removed and a dressing was applied. The fluid was discarded if the clinician did not order diagnostic testing of the fluid. COMPARISON: None FINDINGS: Access site: Right lower quadrant Needle: One-Step centesis catheter with introducer needle. Fluid volume and description: 9.7 L yellow-colored clear Fluid sent for diagnostic testing: None Medications: 1% lidocaine for local anaesthesia. Complications: None. IMPRESSION: Successful ultrasound-guided paracentesis. Reviewed by: Joanne Cabral MD on 04/14/2020 4:58 PM PST Approved by: Joanne Cabral MD on 04/14/2020 4:58 PM PST Station ID: [id number]
== END 2020-04-14 10:14 | disposition home or self-care (01) ==
LOC: DI 10:13
PROVIDERS: ATTEND Internal Medicine
DX: R18.8 Other ascites (principal)
CPT/HCPCS: 36415; 49083; 85027; 85610; 85730

== ENCOUNTER 2020-04-17 09:41 | Outpatient (CLI) | payer MEDICAID ==
[2020-04-17 09:42] LABS: HGB - HEMOGLOBIN 12.1 g/dL (14.0-18.0); MEAN CORPUSCULAR HEMOGLOBIN 32.4 pg (27.0-31.0); MEAN CORPUSCULAR HGB CONC 33.8 g/dL (32.0-36.0); MEAN PLATELET VOLUME 10.3 fL (7.4-11.4); RED BLOOD COUNT 3.73 10^6/uL (4.70-6.10); RED CELL DISTRIBUTION WIDTH 13.2 % (12.0-15.0)
[2020-04-17 09:48] LABS: INR 1.2 (0.8-1.2); PT - PROTHROMBIN TIME 13.1 secs (9.9-12.6)
[2020-04-17 09:55] LABS: PARTIAL THROMBOPLASTIN TIME 29.7 secs (24.9-33.3)
--- NOTE | 2020-04-18 15:03 | Ultrasound Report ---
PROCEDURE: Abdominal Paracentesis INDICATIONS: ASCITES TECHNIQUE: The indications, alternatives, benefits, risks, and complications of the procedure were explained to the patient. Written informed consent was obtained and placed in the chart. The abdomen and pelvis were examined sonographically, and an appropriate site was chosen for paracentesis. The skin was pre pared and draped in the usual sterile fashion, and 1% lidocaine was infiltrated from the skin down th rough the peritoneal surface. A 19-gauge catheter-covered needle was then introduced into the perito valerie space, the catheter was advanced and the needle was withdrawn, and thereafter peritoneal fluid w as withdrawn. The catheter was then removed and a dressing was applied. The fluid was discarded if the clinician did not order diagnostic testing of the fluid. COMPARISON: None FINDINGS: Access site: Right lower quadrant Needle: One-Step centesis catheter with introducer needle. Fluid volume and description: 10 L clear yellow Fluid sent for diagnostic testing: No Medications: 1% lidocaine for local anaesthesia. Complications: None. IMPRESSION: Successful ultrasound-guided paracentesis. Reviewed by: Joanne Cabral MD on 04/18/2020 3:02 PM PST Approved by: Joanne Cabral MD on 04/18/2020 3:02 PM PST Station ID: [id number]
== END 2020-04-17 09:42 | disposition home or self-care (01) ==
LOC: DI 09:41
PROVIDERS: ATTEND Internal Medicine
DX: R18.8 Other ascites (principal)
CPT/HCPCS: 36415; 49083; 85027; 85610; 85730

== ENCOUNTER 2020-04-21 10:05 | Outpatient (CLI) | payer MEDICAID ==
[2020-04-21 10:09] LABS: HGB - HEMOGLOBIN 11.9 g/dL (14.0-18.0); MEAN CORPUSCULAR HGB CONC 35.2 g/dL (32.0-36.0); MEAN CORPUSCULAR VOLUME 93.6 fL (80.0-94.0); MEAN PLATELET VOLUME 9.5 fL (7.4-11.4); RED BLOOD COUNT 3.61 10^6/uL (4.70-6.10); RED CELL DISTRIBUTION WIDTH 13.1 % (12.0-15.0); WHITE BLOOD COUNT 6.3 x10^3/uL (4.8-10.8)
[2020-04-21 10:11] LABS: INR 1.2 (0.8-1.2); PT - PROTHROMBIN TIME 13.8 secs (9.9-12.6)
[2020-04-21 10:18] LABS: PARTIAL THROMBOPLASTIN TIME 29.6 secs (24.9-33.3)
--- NOTE | 2020-04-21 13:29 | Ultrasound Report ---
PROCEDURE: Abdominal Paracentesis INDICATIONS: ASCITES TECHNIQUE: The indications, alternatives, benefits, risks, and complications of the procedure were explained to the patient. Written informed consent was obtained and placed in the chart. The abdomen and pelvis were examined sonographically, and an appropriate site was chosen for paracentesis. The skin was pre pared and draped in the usual sterile fashion, and 1% lidocaine was infiltrated from the skin down th rough the peritoneal surface. A 19-gauge catheter-covered needle was then introduced into the perito valerie space, the catheter was advanced and the needle was withdrawn, and thereafter peritoneal fluid w as withdrawn. The catheter was then removed and a dressing was applied. The fluid was discarded if the clinician did not order diagnostic testing of the fluid. COMPARISON: 04/17/2020 FINDINGS: Access site: Right lower quadrant Needle: One-Step centesis catheter with introducer needle. Fluid volume and description: 10 L of serous ascites Fluid sent for diagnostic testing: Not requested Medications: 1% lidocaine for local anaesthesia. Complications: None. IMPRESSION: Successful ultrasound-guided paracentesis. Reviewed by: Bairon Real MD on 04/21/2020 1:28 PM PST Approved by: Bairon Real MD on 04/21/2020 1:28 PM PST Station ID: [id number]
== END 2020-04-21 10:06 | disposition home or self-care (01) ==
LOC: DI 10:05
PROVIDERS: ATTEND Internal Medicine
DX: R18.8 Other ascites (principal)
CPT/HCPCS: 36415; 49083; 85027; 85610; 85730

== ENCOUNTER 2020-04-24 12:55 | Outpatient (CLI) | payer MEDICAID ==
[2020-04-24 09:56] LABS: MEAN CORPUSCULAR HEMOGLOBIN 32.3 pg (27.0-31.0); MEAN CORPUSCULAR HGB CONC 33.7 g/dL (32.0-36.0); MEAN PLATELET VOLUME 10.4 fL (7.4-11.4); RED BLOOD COUNT 3.71 10^6/uL (4.70-6.10); RED CELL DISTRIBUTION WIDTH 13.1 % (12.0-15.0); WHITE BLOOD COUNT 6.6 x10^3/uL (4.8-10.8)
[2020-04-24 10:06] LABS: INR 1.2 (0.8-1.2); PT - PROTHROMBIN TIME 13.1 secs (9.9-12.6)
[2020-04-24 10:13] LABS: PARTIAL THROMBOPLASTIN TIME 29.1 secs (24.9-33.3)
--- NOTE | 2020-04-24 14:51 | Ultrasound Report ---
PROCEDURE: Abdominal Paracentesis INDICATIONS: ASCITES TECHNIQUE: The indications, alternatives, benefits, risks, and complications of the procedure were explained to the patient. Written informed consent was obtained and placed in the chart. The abdomen and pelvis were examined sonographically, and an appropriate site was chosen for paracentesis. The skin was pre pared and draped in the usual sterile fashion, and 1% lidocaine was infiltrated from the skin down th rough the peritoneal surface. A 19-gauge catheter-covered needle was then introduced into the perito valerie space, the catheter was advanced and the needle was withdrawn, and thereafter peritoneal fluid w as withdrawn. The catheter was then removed and a dressing was applied. The fluid was discarded if the clinician did not order diagnostic testing of the fluid. COMPARISON: None FINDINGS: Access site: Right lower quadrant Needle: One-Step centesis catheter with introducer needle. Fluid volume and description: 9 L clear yellow Fluid sent for diagnostic testing: None Medications: 1% lidocaine for local anaesthesia. Complications: None. IMPRESSION: Successful ultrasound-guided paracentesis. Reviewed by: Joanne Cabral MD on 04/24/2020 2:50 PM PST Approved by: Joanne Cabral MD on 04/24/2020 2:50 PM PST Station ID: [id number]
[2020-04-24] MEDS ORDERED: BUFFERED LIDOCAINE 10 ML SYRINGE IU ONE (15:19)
== END 2020-04-24 12:56 | disposition home or self-care (01) ==
LOC: LAB 12:55
PROVIDERS: ATTEND Internal Medicine
DX: R18.8 Other ascites (principal)
CPT/HCPCS: 36415; 49083; 85027; 85610; 85730

== ENCOUNTER 2020-04-28 07:53 | Outpatient (CLI) | payer MEDICAID ==
[2020-04-28 07:55] LABS: BASOPHILS # (AUTO) 0.1 10^3/uL (0.0-0.1); BASOPHILS % (AUTO) 1.9 %; EOSINOPHILS # (AUTO) 0.2 10^3/uL (0.0-0.7); EOSINOPHILS % (AUTO) 2.4 %; HGB - HEMOGLOBIN 12.8 g/dL (14.0-18.0); LYMPHOCYTES # (AUTO) 1.2 10^3/uL (1.5-3.5); LYMPHOCYTES % (AUTO) 18.7 %; MEAN CORPUSCULAR HEMOGLOBIN 33.4 pg (27.0-31.0); MEAN CORPUSCULAR VOLUME 95.6 fL (80.0-94.0); MEAN PLATELET VOLUME 9.8 fL (7.4-11.4); MONOCYTES % (AUTO) 15.3 %; NEUTROPHILS # (AUTO) 3.9 10^3/uL (1.5-6.6); NEUTROPHILS % (AUTO) 61.4 %; PLT - PLATELET COUNT 146 10^3/uL (130-450); RED BLOOD COUNT 3.83 10^6/uL (4.70-6.10); WHITE BLOOD COUNT 6.4 x10^3/uL (4.8-10.8)
[2020-04-28 08:07] LABS: INR 1.1 (0.8-1.2); PT - PROTHROMBIN TIME 12.4 secs (9.9-12.6)
[2020-04-28 08:18] LABS: CALCIUM 9.2 mg/dL (8.5-10.3); CREATININE 1.2 mg/dL (0.6-1.2)
--- NOTE | 2020-04-28 12:37 | Ultrasound Report ---
PROCEDURE: Abdominal Paracentesis INDICATIONS: ALCOHOL CIRRHOSIS OF LIVER W/ ASCITES TECHNIQUE: The indications, alternatives, benefits, risks, and complications of the procedure were explained to the patient. Written informed consent was obtained and placed in the chart. The abdomen and pelvis were examined sonographically, and an appropriate site was chosen for paracentesis. The skin was pre pared and draped in the usual sterile fashion, and 1% lidocaine was infiltrated from the skin down th rough the peritoneal surface. A 19-gauge catheter-covered needle was then introduced into the perito valerie space, the catheter was advanced and the needle was withdrawn, and thereafter peritoneal fluid w as withdrawn. The catheter was then removed and a dressing was applied. The fluid was discarded if the clinician did not order diagnostic testing of the fluid. COMPARISON: None FINDINGS: Access site: Right lower quadrant Needle: One-Step centesis catheter with introducer needle. Fluid volume and description: 9.3 L yellow yellow Fluid sent for diagnostic testing: None Medications: 1% lidocaine for local anaesthesia. Complications: None. IMPRESSION: Successful ultrasound-guided paracentesis. Reviewed by: Joanne Cabral MD on 04/28/2020 12:35 PM PST Approved by: Joanne Cabral MD on 04/28/2020 12:35 PM PST Station ID: [id number]
== END 2020-04-28 07:54 | disposition home or self-care (01) ==
LOC: DI 07:53
PROVIDERS: ATTEND Internal Medicine
DX: K70.31 Alcoholic cirrhosis of liver with ascites (principal)
CPT/HCPCS: 36415; 49083; 80048; 85025; 85610

== ENCOUNTER 2020-05-02 09:15 | Outpatient (CLI) | payer MEDICAID ==
[2020-05-02 09:26] LABS: HGB - HEMOGLOBIN 13.3 g/dL (14.0-18.0); MEAN CORPUSCULAR HEMOGLOBIN 32.2 pg (27.0-31.0); MEAN CORPUSCULAR HGB CONC 33.3 g/dL (32.0-36.0); MEAN CORPUSCULAR VOLUME 96.6 fL (80.0-94.0); MEAN PLATELET VOLUME 9.8 fL (7.4-11.4); RED BLOOD COUNT 4.13 10^6/uL (4.70-6.10); RED CELL DISTRIBUTION WIDTH 13.3 % (12.0-15.0); WHITE BLOOD COUNT 7.5 x10^3/uL (4.8-10.8)
[2020-05-02 09:33] LABS: INR 1.2 (0.8-1.2); PT - PROTHROMBIN TIME 12.8 secs (9.9-12.6)
[2020-05-02 09:40] LABS: PARTIAL THROMBOPLASTIN TIME 30.1 secs (24.9-33.3)
== END 2020-05-02 09:16 | disposition home or self-care (01) ==
LOC: LAB 09:15
PROVIDERS: ATTEND Internal Medicine
DX: R18.8 Other ascites (principal)
CPT/HCPCS: 36415; 85027; 85610; 85730

== ENCOUNTER 2020-05-02 09:23 | Outpatient (CLI) | payer MEDICAID ==
--- NOTE | 2020-05-02 16:27 | Ultrasound Report ---
PROCEDURE: Abdominal Paracentesis INDICATIONS: ASCITES TECHNIQUE: The indications, alternatives, benefits, risks, and complications of the procedure were explained to the patient. Written informed consent was obtained and placed in the chart. The abdomen and pelvis were examined sonographically, and an appropriate site was chosen for paracentesis. The skin was pre pared and draped in the usual sterile fashion, and 1% lidocaine was infiltrated from the skin down th rough the peritoneal surface. A 19-gauge catheter-covered needle was then introduced into the perito valerie space, the catheter was advanced and the needle was withdrawn, and thereafter peritoneal fluid w as withdrawn. The catheter was then removed and a dressing was applied. The fluid was discarded if the clinician did not order diagnostic testing of the fluid. COMPARISON: Ultrasound guided paracentesis, 04/28/2020. FINDINGS: Access site: Right lower quadrant Needle: One-Step centesis catheter with introducer needle. Fluid volume and description: 8 L; Serosanguineous Fluid sent for diagnostic testing: Not requested. Medications: 1% lidocaine for local anaesthesia. Complications: None. IMPRESSION: Successful ultrasound-guided paracentesis. Reviewed by: Maddi Mata MD on 05/02/2020 4:26 PM PST Approved by: Maddi Mata MD on 05/02/2020 4:26 PM PST Station ID: [id number]
== END 2020-05-02 09:24 | disposition home or self-care (01) ==
LOC: DI 09:23
PROVIDERS: ATTEND Internal Medicine
DX: R18.8 Other ascites (principal)
CPT/HCPCS: 36415; 49083; 85027; 85610; 85730

== ENCOUNTER 2020-05-05 08:24 | Outpatient (CLI) | payer MEDICAID ==
[2020-05-05 08:34] LABS: INR 1.2 (0.8-1.2); PT - PROTHROMBIN TIME 13.1 secs (9.9-12.6)
[2020-05-05 08:40] LABS: BASOPHILS # (AUTO) 0.1 10^3/uL (0.0-0.1); BASOPHILS % (AUTO) 1.3 %; CALCIUM 9.2 mg/dL (8.5-10.3); CREATININE 1.1 mg/dL (0.6-1.2); EOSINOPHILS # (AUTO) 0.1 10^3/uL (0.0-0.7); EOSINOPHILS % (AUTO) 1.8 %; HCT - HEMATOCRIT 37.7 % (42.0-52.0); HGB - HEMOGLOBIN 12.9 g/dL (14.0-18.0); LYMPHOCYTES # (AUTO) 1.8 10^3/uL (1.5-3.5); LYMPHOCYTES % (AUTO) 22.2 %; MEAN CORPUSCULAR HEMOGLOBIN 32.4 pg (27.0-31.0); MEAN CORPUSCULAR HGB CONC 34.2 g/dL (32.0-36.0); MEAN CORPUSCULAR VOLUME 94.7 fL (80.0-94.0); NEUTROPHILS # (AUTO) 4.9 10^3/uL (1.5-6.6); NEUTROPHILS % (AUTO) 62.2 %; PLT - PLATELET COUNT 162 10^3/uL (130-450); POTASSIUM 5.7 mmol/L (3.5-5.0); RED BLOOD COUNT 3.98 10^6/uL (4.70-6.10); RED CELL DISTRIBUTION WIDTH 12.9 % (12.0-15.0); WHITE BLOOD COUNT 7.9 x10^3/uL (4.8-10.8)
--- NOTE | 2020-05-05 17:30 | Ultrasound Report ---
PROCEDURE: Abdominal Paracentesis INDICATIONS: ALCOHOL CIRRHOSIS OF LIVER W/ ASCITES TECHNIQUE: The indications, alternatives, benefits, risks, and complications of the procedure were explained to the patient. Written informed consent was obtained and placed in the chart. The abdomen and pelvis were examined sonographically, and an appropriate site was chosen for paracentesis. The skin was pre pared and draped in the usual sterile fashion, and 1% lidocaine was infiltrated from the skin down th rough the peritoneal surface. A 19-gauge catheter-covered needle was then introduced into the perito valerie space, the catheter was advanced and the needle was withdrawn, and thereafter peritoneal fluid w as withdrawn. The catheter was then removed and a dressing was applied. The fluid was discarded if the clinician did not order diagnostic testing of the fluid. COMPARISON: Ultrasound paracentesis, 05/02/2020. FINDINGS: Access site: Right lower abdomen. Needle: One-Step centesis catheter with introducer needle. Fluid volume and description: 5.8 L. Cloudy, straw-colored. Fluid sent for diagnostic testing: Not crest to. Medications: 1% lidocaine for local anaesthesia. Complications: None. IMPRESSION: Successful ultrasound-guided paracentesis. The patient received albumin infusion post paracentesis. Reviewed by: Maddi Mata MD on 05/05/2020 5:29 PM PST Approved by: Maddi Mata MD on 05/05/2020 5:29 PM PST Station ID: [id number]
== END 2020-05-05 08:25 | disposition home or self-care (01) ==
LOC: LAB 08:24
PROVIDERS: ATTEND Internal Medicine
DX: K70.31 Alcoholic cirrhosis of liver with ascites (principal)
CPT/HCPCS: 36415; 49083; 80048; 85025; 85610

== ENCOUNTER 2020-05-09 07:00 | Outpatient (CLI) | payer MEDICAID ==
[2020-05-09 12:34] LABS: BASOPHILS # (AUTO) 0.1 10^3/uL (0.0-0.1); BASOPHILS % (AUTO) 1.5 %; EOSINOPHILS # (AUTO) 0.1 10^3/uL (0.0-0.7); EOSINOPHILS % (AUTO) 1.7 %; HGB - HEMOGLOBIN 12.9 g/dL (14.0-18.0); LYMPHOCYTES # (AUTO) 1.4 10^3/uL (1.5-3.5); LYMPHOCYTES % (AUTO) 18.6 %; MEAN CORPUSCULAR HEMOGLOBIN 32.4 pg (27.0-31.0); MEAN CORPUSCULAR HGB CONC 34.2 g/dL (32.0-36.0); MEAN CORPUSCULAR VOLUME 94.7 fL (80.0-94.0); MEAN PLATELET VOLUME 9.6 fL (7.4-11.4); MONOCYTES # (AUTO) 1.1 10^3/uL (0.0-1.0); MONOCYTES % (AUTO) 14.1 %; NEUTROPHILS # (AUTO) 4.8 10^3/uL (1.5-6.6); NEUTROPHILS % (AUTO) 63.6 %; PLT - PLATELET COUNT 147 10^3/uL (130-450); RED BLOOD COUNT 3.98 10^6/uL (4.70-6.10); WHITE BLOOD COUNT 7.5 x10^3/uL (4.8-10.8)
[2020-05-09 12:39] LABS: INR 1.2 (0.8-1.2)
[2020-05-09 12:42] LABS: CALCIUM 9.2 mg/dL (8.5-10.3); CREATININE 1.3 mg/dL (0.6-1.2)
--- NOTE | 2020-05-09 15:53 | Ultrasound Report ---
PROCEDURE: Abdominal Paracentesis INDICATIONS: ALCOHOL CIRRHOSIS OF LIVER W/ ASCITES TECHNIQUE: The indications, alternatives, benefits, risks, and complications of the procedure were explained to the patient. Written informed consent was obtained and placed in the chart. The abdomen and pelvis were examined sonographically, and an appropriate site was chosen for paracentesis. The skin was pre pared and draped in the usual sterile fashion, and 1% lidocaine was infiltrated from the skin down th rough the peritoneal surface. A 19-gauge catheter-covered needle was then introduced into the perito valerie space, the catheter was advanced and the needle was withdrawn, and thereafter peritoneal fluid w as withdrawn. The catheter was then removed and a dressing was applied. The fluid was discarded if the clinician did not order diagnostic testing of the fluid. COMPARISON: 05/05/2020 FINDINGS: Access site: Right lower quadrant Needle: One-Step centesis catheter with introducer needle. Fluid volume and description: 7.9 L of cloudy, pink-tinged ascites Fluid sent for diagnostic testing: Therapeutic procedure only. No specimens sent to laboratory for e valuation. Medications: 1% lidocaine for local anaesthesia. Complications: None. Of note, given the difference in appearance of the ascites from the usual clou dy, straw-colored fluid, sonographic imaging of the catheter site was performed demonstrating no evid ence for active extravasation or vessels in the region. Additionally, the location of the inferior ep igastric arteries were interrogated prior to marking the patient for paracentesis, and the site of ac cess was lateral and superior to the inferior epigastric arteries. IMPRESSION: Successful ultrasound-guided paracentesis. Findings were discussed with the gastroenterology clinical nurse, Mya, at 1520 hours. Reviewed by: eNgrito Glez MD on 05/09/2020 3:52 PM PST Approved by: Negrito Glez MD on 05/09/2020 3:52 PM PST Station ID: [id number]
== END 2020-05-09 23:59 | disposition home or self-care (01) ==
LOC: DI 07:00
PROVIDERS: ATTEND Internal Medicine
DX: K70.31 Alcoholic cirrhosis of liver with ascites (principal)
CPT/HCPCS: 36415; 49083; 80048; 85025; 85610

== ENCOUNTER 2020-05-12 12:49 | Outpatient (CLI) | payer MEDICAID ==
[2020-05-12 12:50] LABS: BASOPHILS # (AUTO) 0.1 10^3/uL (0.0-0.1); BASOPHILS % (AUTO) 1.2 %; EOSINOPHILS # (AUTO) 0.1 10^3/uL (0.0-0.7); HGB - HEMOGLOBIN 12.8 g/dL (14.0-18.0); LYMPHOCYTES # (AUTO) 1.5 10^3/uL (1.5-3.5); LYMPHOCYTES % (AUTO) 21.8 %; MEAN CORPUSCULAR HGB CONC 35.4 g/dL (32.0-36.0); MEAN CORPUSCULAR VOLUME 93.3 fL (80.0-94.0); MEAN PLATELET VOLUME 9.5 fL (7.4-11.4); NEUTROPHILS # (AUTO) 4.2 10^3/uL (1.5-6.6); NEUTROPHILS % (AUTO) 60.6 %; PLT - PLATELET COUNT 153 10^3/uL (130-450); RED BLOOD COUNT 3.88 10^6/uL (4.70-6.10); RED CELL DISTRIBUTION WIDTH 12.9 % (12.0-15.0); WHITE BLOOD COUNT 6.9 x10^3/uL (4.8-10.8)
[2020-05-12 12:55] LABS: INR 1.2 (0.8-1.2); PT - PROTHROMBIN TIME 12.9 secs (9.9-12.6)
[2020-05-12 13:05] LABS: CALCIUM 9.1 mg/dL (8.5-10.3); CREATININE 1.5 mg/dL (0.6-1.2)
--- NOTE | 2020-05-12 16:54 | Ultrasound Report ---
PROCEDURE: Abdominal Paracentesis INDICATIONS: ALCOHOL CIRRHOSIS OF LIVER W/ ASCITES TECHNIQUE: The indications, alternatives, benefits, risks, and complications of the procedure were explained to the patient. Written informed consent was obtained and placed in the chart. The abdomen and pelvis were examined sonographically, and an appropriate site was chosen for paracentesis. The skin was pre pared and draped in the usual sterile fashion, and 1% lidocaine was infiltrated from the skin down th rough the peritoneal surface. A 19-gauge catheter-covered needle was then introduced into the perito valerie space, the catheter was advanced and the needle was withdrawn, and thereafter peritoneal fluid w as withdrawn. The catheter was then removed and a dressing was applied. The fluid was discarded if the clinician did not order diagnostic testing of the fluid. COMPARISON: Ultrasound guided paracentesis, 05/09/2020. FINDINGS: Access site: Right lower quadrant. Needle: One-Step centesis catheter with introducer needle. Fluid volume and description: 6.3 liters; pink, slightly cloudy. Fluid sent for diagnostic testing: Not requested. Medications: 1% lidocaine for local anaesthesia. Complications: None. IMPRESSION: Successful ultrasound-guided paracentesis. Reviewed by: Maddi Mata MD on 05/12/2020 4:53 PM PST Approved by: Maddi Mata MD on 05/12/2020 4:53 PM PST Station ID: [id number]
== END 2020-05-12 12:50 | disposition home or self-care (01) ==
LOC: DI 12:49
PROVIDERS: ATTEND Internal Medicine
DX: K70.31 Alcoholic cirrhosis of liver with ascites (principal)
CPT/HCPCS: 36415; 49083; 80048; 85025; 85610

== ENCOUNTER 2020-05-15 13:10 | Outpatient (CLI) | payer MEDICAID ==
[2020-05-15 13:11] LABS: BASOPHILS # (AUTO) 0.1 10^3/uL (0.0-0.1); BASOPHILS % (AUTO) 1.1 %; EOSINOPHILS # (AUTO) 0.1 10^3/uL (0.0-0.7); EOSINOPHILS % (AUTO) 1.4 %; HCT - HEMATOCRIT 35.9 % (42.0-52.0); HGB - HEMOGLOBIN 12.2 g/dL (14.0-18.0); LYMPHOCYTES # (AUTO) 1.5 10^3/uL (1.5-3.5); LYMPHOCYTES % (AUTO) 22.9 %; MEAN CORPUSCULAR VOLUME 94.2 fL (80.0-94.0); MEAN PLATELET VOLUME 9.6 fL (7.4-11.4); MONOCYTES # (AUTO) 0.8 10^3/uL (0.0-1.0); MONOCYTES % (AUTO) 12.3 %; NEUTROPHILS # (AUTO) 4.1 10^3/uL (1.5-6.6); NEUTROPHILS % (AUTO) 61.8 %; PLT - PLATELET COUNT 148 10^3/uL (130-450); RED BLOOD COUNT 3.81 10^6/uL (4.70-6.10); RED CELL DISTRIBUTION WIDTH 13.2 % (12.0-15.0); WHITE BLOOD COUNT 6.6 x10^3/uL (4.8-10.8)
[2020-05-15 13:17] LABS: CALCIUM 9.5 mg/dL (8.5-10.3); CREATININE 1.3 mg/dL (0.6-1.2); POTASSIUM 5.6 mmol/L (3.5-5.0)
[2020-05-15 13:41] LABS: INR 1.2 (0.8-1.2)
--- NOTE | 2020-05-15 16:58 | Ultrasound Report ---
PROCEDURE: Abdominal Paracentesis INDICATIONS: ALCOHOLIC CIRRHOSIS OF LIVER TECHNIQUE: The indications, alternatives, benefits, risks, and complications of the procedure were explained to the patient. Written informed consent was obtained and placed in the chart. The abdomen and pelvis were examined sonographically, and an appropriate site was chosen for paracentesis. The skin was pre pared and draped in the usual sterile fashion, and 1% lidocaine was infiltrated from the skin down th rough the peritoneal surface. A 19-gauge catheter-covered needle was then introduced into the perito valerie space, the catheter was advanced and the needle was withdrawn, and thereafter peritoneal fluid w as withdrawn. The catheter was then removed and a dressing was applied. The fluid was discarded if the clinician did not order diagnostic testing of the fluid. COMPARISON: None FINDINGS: Access site: Right lower quadrant Needle: One-Step centesis catheter with introducer needle. Fluid volume and description: 3.2 L pink tinged fluid Fluid sent for diagnostic testing: No Medications: 1% lidocaine for local anaesthesia. Complications: None. IMPRESSION: Successful ultrasound-guided paracentesis. Reviewed by: Joanne Cabral MD on 05/15/2020 4:56 PM PST Approved by: Joanne Cabral MD on 05/15/2020 4:56 PM PST Station ID: [id number]
== END 2020-05-15 13:11 | disposition home or self-care (01) ==
LOC: DI 13:10
PROVIDERS: ATTEND Internal Medicine
DX: K70.31 Alcoholic cirrhosis of liver with ascites (principal)
CPT/HCPCS: 36415; 49083; 80048; 85025; 85610

== ENCOUNTER 2020-05-19 09:19 | Outpatient (CLI) | payer MEDICAID ==
[2020-05-19 09:26] LABS: BASOPHILS # (AUTO) 0.1 10^3/uL (0.0-0.1); BASOPHILS % (AUTO) 1.3 %; EOSINOPHILS # (AUTO) 0.1 10^3/uL (0.0-0.7); EOSINOPHILS % (AUTO) 2.1 %; HCT - HEMATOCRIT 35.5 % (42.0-52.0); HGB - HEMOGLOBIN 12.2 g/dL (14.0-18.0); LYMPHOCYTES # (AUTO) 1.4 10^3/uL (1.5-3.5); LYMPHOCYTES % (AUTO) 21.4 %; MEAN CORPUSCULAR HEMOGLOBIN 32.9 pg (27.0-31.0); MEAN CORPUSCULAR HGB CONC 34.4 g/dL (32.0-36.0); MEAN CORPUSCULAR VOLUME 95.7 fL (80.0-94.0); MEAN PLATELET VOLUME 9.9 fL (7.4-11.4); MONOCYTES % (AUTO) 15.1 %; NEUTROPHILS % (AUTO) 59.7 %; PLT - PLATELET COUNT 140 10^3/uL (130-450); RED BLOOD COUNT 3.71 10^6/uL (4.70-6.10); RED CELL DISTRIBUTION WIDTH 13.5 % (12.0-15.0); WHITE BLOOD COUNT 6.7 x10^3/uL (4.8-10.8)
[2020-05-19 09:31] LABS: CREATININE 1.4 mg/dL (0.6-1.2); POTASSIUM 5.8 mmol/L (3.5-5.0)
[2020-05-19 09:37] LABS: INR 1.2 (0.8-1.2); PT - PROTHROMBIN TIME 13.2 secs (9.9-12.6)
--- NOTE | 2020-05-19 12:01 | Ultrasound Report ---
PROCEDURE: Abdominal Paracentesis INDICATIONS: ALCOHOLIC CIRRHOSIS OF LIVER TECHNIQUE: The indications, alternatives, benefits, risks, and complications of the procedure were explained to the patient. Written informed consent was obtained and placed in the chart. The abdomen and pelvis were examined sonographically, and an appropriate site was chosen for paracentesis. The skin was pre pared and draped in the usual sterile fashion, and 1% lidocaine was infiltrated from the skin down th rough the peritoneal surface. A 19-gauge catheter-covered needle was then introduced into the perito valerie space, the catheter was advanced and the needle was withdrawn, and thereafter peritoneal fluid w as withdrawn. The catheter was then removed and a dressing was applied. The fluid was discarded if the clinician did not order diagnostic testing of the fluid. COMPARISON: 05/15/2020 FINDINGS: Access site: Right lower quadrant Needle: One-Step centesis catheter with introducer needle. Fluid volume and description: 8.7 L of serosanguineous ascites Fluid sent for diagnostic testing: Not requested Medications: 1% lidocaine for local anaesthesia. Complications: None. IMPRESSION: Successful ultrasound-guided paracentesis. Reviewed by: Bairon Real MD on 05/19/2020 12:00 PM PST Approved by: Bairon Real MD on 05/19/2020 12:00 PM PST Station ID: [id number]
== END 2020-05-19 09:20 | disposition home or self-care (01) ==
LOC: DI 09:19
PROVIDERS: ATTEND Internal Medicine
DX: K70.31 Alcoholic cirrhosis of liver with ascites (principal)
CPT/HCPCS: 36415; 49083; 80048; 85025; 85610

== ENCOUNTER 2020-05-23 08:37 | Outpatient (CLI) | payer MEDICAID ==
[2020-05-23 09:19] LABS: BASOPHILS # (AUTO) 0.1 10^3/uL (0.0-0.1); BASOPHILS % (AUTO) 1.5 %; EOSINOPHILS # (AUTO) 0.1 10^3/uL (0.0-0.7); EOSINOPHILS % (AUTO) 1.8 %; HCT - HEMATOCRIT 34.9 % (42.0-52.0); HGB - HEMOGLOBIN 12.2 g/dL (14.0-18.0); LYMPHOCYTES % (AUTO) 15.4 %; MEAN CORPUSCULAR HEMOGLOBIN 32.4 pg (27.0-31.0); MEAN CORPUSCULAR VOLUME 92.8 fL (80.0-94.0); MEAN PLATELET VOLUME 9.6 fL (7.4-11.4); MONOCYTES % (AUTO) 15.7 %; NEUTROPHILS # (AUTO) 4.3 10^3/uL (1.5-6.6); NEUTROPHILS % (AUTO) 65.1 %; PLT - PLATELET COUNT 155 10^3/uL (130-450); RED BLOOD COUNT 3.76 10^6/uL (4.70-6.10); RED CELL DISTRIBUTION WIDTH 13.3 % (12.0-15.0); WHITE BLOOD COUNT 6.6 x10^3/uL (4.8-10.8)
[2020-05-23 09:37] LABS: ALBUMIN 3.2 g/dL (3.2-5.5); BILIRUBIN,DIRECT 0.4 mg/dL (0.1-0.5); BILIRUBIN,TOTAL 1.4 mg/dL (0.2-1.0); CALCIUM 9.1 mg/dL (8.5-10.3); CREATININE 1.2 mg/dL (0.6-1.2); POTASSIUM 5.3 mmol/L (3.5-5.0); TOTAL PROTEIN 6.5 g/dL (6.7-8.2)
[2020-05-23 09:59] LABS: INR 1.2 (0.8-1.2); PT - PROTHROMBIN TIME 12.9 secs (9.9-12.6)
--- NOTE | 2020-05-23 17:42 | Ultrasound Report ---
PROCEDURE: Abdominal Paracentesis INDICATIONS: ALCOHOLIC CIRRHOSIS OF LIVER TECHNIQUE: The indications, alternatives, benefits, risks, and complications of the procedure were explained to the patient. Written informed consent was obtained and placed in the chart. The abdomen and pelvis were examined sonographically, and an appropriate site was chosen for paracentesis. The skin was pre pared and draped in the usual sterile fashion, and 1% lidocaine was infiltrated from the skin down th rough the peritoneal surface. A 19-gauge catheter-covered needle was then introduced into the perito valerie space, the catheter was advanced and the needle was withdrawn, and thereafter peritoneal fluid w as withdrawn. The catheter was then removed and a dressing was applied. The fluid was discarded if the clinician did not order diagnostic testing of the fluid. COMPARISON: 05/19/2020 FINDINGS: Access site: Right lower quadrant Needle: One-Step centesis catheter with introducer needle. Fluid volume and description: 11.4 L of serosanguineous, slightly cloudy ascites Fluid sent for diagnostic testing: None sent for testing Medications: 1% lidocaine for local anaesthesia. Complications: None. IMPRESSION: Successful ultrasound-guided paracentesis. Reviewed by: Negrito Glez MD on 05/23/2020 5:41 PM PST Approved by: Negrito Glez MD on 05/23/2020 5:41 PM PST Station ID: [id number]
[2020-05-24 12:26] LABS: HEPATITIS A AB TOTAL(IMMUNITY) NON-REACTIVE (NON-REACTIVE); HEPATITIS B CORE AB TOTAL NON-REACTIVE (NON-REACTIVE); HEPATITIS B SURFACE ANTIGEN NON-REACTIVE (NON-REACTIVE)
[2020-05-24 12:27] LABS: HEPATITIS C ANTIBODY NON-REACTIVE (NON-REACTIVE)
[2020-05-24 12:41] LABS: ALPHA FETOPROTEIN TUMOR MARKER 4.3 ng/mL (<6.1)
== END 2020-05-23 08:38 | disposition home or self-care (01) ==
LOC: LAB 08:37 → DI 08:38
PROVIDERS: ATTEND Internal Medicine
DX: K70.31 Alcoholic cirrhosis of liver with ascites (principal); I85.00 Esophageal varices without bleeding; F10.21 Alcohol dependence, in remission
CPT/HCPCS: 36415; 49083; 80048; 80053; 82105; 82248; 85025; 85610; 86317; 86704; 86708; 86803; 87340

== ENCOUNTER 2020-05-26 08:51 | Outpatient (CLI) | payer MEDICAID ==
[2020-05-26 09:15] LABS: BASOPHILS # (AUTO) 0.1 10^3/uL (0.0-0.1); BASOPHILS % (AUTO) 1.3 %; EOSINOPHILS # (AUTO) 0.1 10^3/uL (0.0-0.7); EOSINOPHILS % (AUTO) 1.8 %; HCT - HEMATOCRIT 34.2 % (42.0-52.0); HGB - HEMOGLOBIN 12.1 g/dL (14.0-18.0); LYMPHOCYTES # (AUTO) 0.9 10^3/uL (1.5-3.5); LYMPHOCYTES % (AUTO) 13.9 %; MEAN CORPUSCULAR HEMOGLOBIN 32.8 pg (27.0-31.0); MEAN CORPUSCULAR HGB CONC 35.4 g/dL (32.0-36.0); MEAN CORPUSCULAR VOLUME 92.7 fL (80.0-94.0); MEAN PLATELET VOLUME 9.3 fL (7.4-11.4); MONOCYTES % (AUTO) 14.8 %; NEUTROPHILS # (AUTO) 4.5 10^3/uL (1.5-6.6); NEUTROPHILS % (AUTO) 67.5 %; PLT - PLATELET COUNT 139 10^3/uL (130-450); RED BLOOD COUNT 3.69 10^6/uL (4.70-6.10); RED CELL DISTRIBUTION WIDTH 13.4 % (12.0-15.0); WHITE BLOOD COUNT 6.7 x10^3/uL (4.8-10.8)
[2020-05-26 09:27] LABS: CALCIUM 8.7 mg/dL (8.5-10.3); CREATININE 1.3 mg/dL (0.6-1.2); POTASSIUM 5.2 mmol/L (3.5-5.0)
[2020-05-26 09:36] LABS: INR 1.2 (0.8-1.2); PT - PROTHROMBIN TIME 13.4 secs (9.9-12.6)
[2020-05-26 16:53] LABS: CC,BF RBC 12000 /mm^3
[2020-05-26 16:54] LABS: BF CLARITY CLOUDY; BF SOURCE PERITONEAL
[2020-05-26 16:55] LABS: BF COLOR PINK
[2020-05-26 16:57] LABS: CC,BF WBC 196 /mm^3
[2020-05-26 17:05] LABS: MESOTHELIAL %, BF 0 %
--- NOTE | 2020-05-26 17:40 | Ultrasound Report ---
PROCEDURE: Abdominal Paracentesis INDICATIONS: ALCOHOLIC CIRRHOSIS OF LIVER TECHNIQUE: The indications, alternatives, benefits, risks, and complications of the procedure were explained to the patient. Written informed consent was obtained and placed in the chart. The abdomen and pelvis were examined sonographically, and an appropriate site was chosen for paracentesis. The skin was pre pared and draped in the usual sterile fashion, and 1% lidocaine was infiltrated from the skin down th rough the peritoneal surface. A 19-gauge catheter-covered needle was then introduced into the perito valerie space, the catheter was advanced and the needle was withdrawn, and thereafter peritoneal fluid w as withdrawn. The catheter was then removed and a dressing was applied. The fluid was discarded if the clinician did not order diagnostic testing of the fluid. COMPARISON: Ultrasound paracentesis, 05/23/2020. FINDINGS: Access site: Right lower quadrant Needle: One-Step centesis catheter with introducer needle. Fluid volume and description: 9.3 liters; pinkish. Fluid sent for diagnostic testing: Not ordered. Medications: 1% lidocaine for local anaesthesia. Complications: None. IMPRESSION: Successful ultrasound-guided paracentesis. Reviewed by: Maddi Mata MD on 05/26/2020 5:38 PM PST Approved by: Maddi Mata MD on 05/26/2020 5:38 PM PST Station ID: [id number]
== END 2020-05-26 08:52 | disposition home or self-care (01) ==
LOC: DI 08:51
PROVIDERS: ATTEND Internal Medicine
DX: K70.31 Alcoholic cirrhosis of liver with ascites (principal)
CPT/HCPCS: 36415; 49083; 80048; 81599; 85025; 85610; 87070; 87205; 89051

== ENCOUNTER 2020-05-30 09:25 | Outpatient (CLI) | payer MEDICAID ==
--- NOTE | 2020-05-30 17:13 | Ultrasound Report ---
PROCEDURE: Abdominal Paracentesis INDICATIONS: ALCOHOLIC CIRRHOSIS OF LIVER W/ ASCITES TECHNIQUE: The indications, alternatives, benefits, risks, and complications of the procedure were explained to the patient. Written informed consent was obtained and placed in the chart. The abdomen and pelvis were examined sonographically, and an appropriate site was chosen for paracentesis. The skin was pre pared and draped in the usual sterile fashion, and 1% lidocaine was infiltrated from the skin down th rough the peritoneal surface. A 19-gauge catheter-covered needle was then introduced into the perito valerie space, the catheter was advanced and the needle was withdrawn, and thereafter peritoneal fluid w as withdrawn. The catheter was then removed and a dressing was applied. The fluid was discarded if the clinician did not order diagnostic testing of the fluid. COMPARISON: 05/26/2020 FINDINGS: Access site: Right lower quadrant Needle: One-Step centesis catheter with introducer needle. Fluid volume and description: 7.2 L of serosanguineous, slightly cloudy ascites Fluid sent for diagnostic testing: None. Medications: 1% lidocaine for local anaesthesia. Complications: None. IMPRESSION: Successful ultrasound-guided paracentesis. Reviewed by: Negrito Glez MD on 05/30/2020 5:12 PM PDT Approved by: Negrito Glez MD on 05/30/2020 5:12 PM PDT Station ID: [id number]
== END 2020-05-30 09:26 | disposition home or self-care (01) ==
LOC: DI 09:25
PROVIDERS: ATTEND Internal Medicine
DX: K70.31 Alcoholic cirrhosis of liver with ascites (principal)
CPT/HCPCS: 49083

== ENCOUNTER 2020-06-02 08:31 | Outpatient (CLI) | payer MEDICAID ==
[2020-06-02 09:25] LABS: CALCIUM 9.1 mg/dL (8.5-10.3); CREATININE 1.3 mg/dL (0.6-1.2)
[2020-06-02 09:26] LABS: POTASSIUM 6.1 mmol/L (3.5-5.0)
--- NOTE | 2020-06-02 13:30 | Ultrasound Report ---
PROCEDURE: Abdominal Paracentesis INDICATIONS: ALCOHOLIC CIRRHOSIS OF LIVER W/ASCITES TECHNIQUE: The indications, alternatives, benefits, risks, and complications of the procedure were explained to the patient. Written informed consent was obtained and placed in the chart. The abdomen and pelvis were examined sonographically, and an appropriate site was chosen for paracentesis. The skin was pre pared and draped in the usual sterile fashion, and 1% lidocaine was infiltrated from the skin down th rough the peritoneal surface. A 19-gauge catheter-covered needle was then introduced into the perito valerie space, the catheter was advanced and the needle was withdrawn, and thereafter peritoneal fluid w as withdrawn. The catheter was then removed and a dressing was applied. The fluid was discarded if the clinician did not order diagnostic testing of the fluid. COMPARISON: None FINDINGS: Access site: Right lower quadrant Needle: One-Step centesis catheter with introducer needle. Fluid volume and description: [place] tinged Fluid sent for diagnostic testin.2 L Medications: 1% lidocaine for local anaesthesia. Complications: None. IMPRESSION: Successful ultrasound-guided paracentesis. Reviewed by: Joanne Cabral MD on 06/02/2020 1:28 PM PDT Approved by: Joanne Cabral MD on 06/02/2020 1:28 PM PDT Station ID: [id number]
== END 2020-06-02 08:32 | disposition home or self-care (01) ==
LOC: DI 08:31
PROVIDERS: ATTEND Internal Medicine
DX: K70.31 Alcoholic cirrhosis of liver with ascites (principal); K76.6 Portal hypertension; I10 Essential (primary) hypertension
CPT/HCPCS: 36415; 49083; 80048; 85730

== ENCOUNTER 2020-06-09 08:26 | Outpatient (CLI) | payer MEDICAID ==
[2020-06-09 08:41] LABS: BASOPHILS # (AUTO) 0.1 10^3/uL (0.0-0.1); BASOPHILS % (AUTO) 1.5 %; EOSINOPHILS # (AUTO) 0.2 10^3/uL (0.0-0.7); EOSINOPHILS % (AUTO) 2.5 %; HCT - HEMATOCRIT 36.4 % (42.0-52.0); HGB - HEMOGLOBIN 12.8 g/dL (14.0-18.0); LYMPHOCYTES # (AUTO) 1.1 10^3/uL (1.5-3.5); LYMPHOCYTES % (AUTO) 18.9 %; MEAN CORPUSCULAR HEMOGLOBIN 32.7 pg (27.0-31.0); MEAN CORPUSCULAR HGB CONC 35.2 g/dL (32.0-36.0); MEAN CORPUSCULAR VOLUME 93.1 fL (80.0-94.0); MEAN PLATELET VOLUME 8.8 fL (7.4-11.4); MONOCYTES # (AUTO) 0.7 10^3/uL (0.0-1.0); MONOCYTES % (AUTO) 11.8 %; NEUTROPHILS # (AUTO) 3.9 10^3/uL (1.5-6.6); PLT - PLATELET COUNT 151 10^3/uL (130-450); RED BLOOD COUNT 3.91 10^6/uL (4.70-6.10); RED CELL DISTRIBUTION WIDTH 13.7 % (12.0-15.0); WHITE BLOOD COUNT 5.9 x10^3/uL (4.8-10.8)
[2020-06-09 08:49] LABS: CALCIUM 9.2 mg/dL (8.5-10.3); CREATININE 1.3 mg/dL (0.6-1.2); INR 1.2 (0.8-1.2); POTASSIUM 4.4 mmol/L (3.5-5.0); PT - PROTHROMBIN TIME 13.1 secs (9.9-12.6)
[2020-06-09 08:56] LABS: PARTIAL THROMBOPLASTIN TIME 30.1 secs (24.9-33.3)
--- NOTE | 2020-06-09 13:02 | Ultrasound Report ---
PROCEDURE: Abdominal Paracentesis INDICATIONS: ALCOHOLIC CIRRHOSIS OF LIVER W/ASCITES TECHNIQUE: The indications, alternatives, benefits, risks, and complications of the procedure were explained to the patient. Written informed consent was obtained and placed in the chart. The abdomen and pelvis were examined sonographically, and an appropriate site was chosen for paracentesis. The skin was pre pared and draped in the usual sterile fashion, and 1% lidocaine was infiltrated from the skin down th rough the peritoneal surface. A 19-gauge catheter-covered needle was then introduced into the perito valerie space, the catheter was advanced and the needle was withdrawn, and thereafter peritoneal fluid w as withdrawn. The catheter was then removed and a dressing was applied. The fluid was discarded if the clinician did not order diagnostic testing of the fluid. COMPARISON: FINDINGS: Access site: Right lower anterolateral pelvic body wall Needle: One-Step centesis catheter with introducer needle. Fluid volume and description: 7.5 L serous fluid removed. Fluid sent for diagnostic testing: Not requested Medications: 1% lidocaine for local anaesthesia. Complications: None. IMPRESSION: Successful ultrasound-guided paracentesis. Reviewed by: Emeka Nuñez MD on 06/09/2020 1:00 PM PDT Approved by: Emeka Nuñez MD on 06/09/2020 1:00 PM PDT Station ID: [id number]
== END 2020-06-09 08:27 | disposition home or self-care (01) ==
LOC: DI 08:26
PROVIDERS: ATTEND Internal Medicine
DX: K70.31 Alcoholic cirrhosis of liver with ascites (principal); K76.6 Portal hypertension; I10 Essential (primary) hypertension
CPT/HCPCS: 36415; 49083; 80048; 85025; 85610; 85730

== ENCOUNTER 2020-06-13 09:35 | Outpatient (CLI) | payer MEDICAID ==
[2020-06-13 10:02] LABS: BASOPHILS # (AUTO) 0.1 10^3/uL (0.0-0.1); BASOPHILS % (AUTO) 1.1 %; EOSINOPHILS # (AUTO) 0.1 10^3/uL (0.0-0.7); HCT - HEMATOCRIT 34.3 % (42.0-52.0); HGB - HEMOGLOBIN 12.1 g/dL (14.0-18.0); LYMPHOCYTES # (AUTO) 0.7 10^3/uL (1.5-3.5); LYMPHOCYTES % (AUTO) 10.2 %; MEAN CORPUSCULAR HEMOGLOBIN 32.8 pg (27.0-31.0); MEAN CORPUSCULAR HGB CONC 35.3 g/dL (32.0-36.0); MEAN PLATELET VOLUME 9.8 fL (7.4-11.4); MONOCYTES % (AUTO) 14.4 %; NEUTROPHILS # (AUTO) 4.7 10^3/uL (1.5-6.6); NEUTROPHILS % (AUTO) 71.8 %; PLT - PLATELET COUNT 151 10^3/uL (130-450); RED BLOOD COUNT 3.69 10^6/uL (4.70-6.10); RED CELL DISTRIBUTION WIDTH 13.5 % (12.0-15.0); WHITE BLOOD COUNT 6.6 x10^3/uL (4.8-10.8)
[2020-06-13 10:08] LABS: INR 1.2 (0.8-1.2)
[2020-06-13 10:12] LABS: CALCIUM 9.3 mg/dL (8.5-10.3); CREATININE 1.2 mg/dL (0.6-1.2)
[2020-06-13 10:15] LABS: PARTIAL THROMBOPLASTIN TIME 30.3 secs (24.9-33.3)
[2020-06-13 10:52] LABS: POTASSIUM 6.2 mmol/L (3.5-5.0)
== END 2020-06-13 09:36 | disposition home or self-care (01) ==
LOC: LAB 09:35
PROVIDERS: ATTEND Internal Medicine
DX: K70.31 Alcoholic cirrhosis of liver with ascites (principal)
CPT/HCPCS: 36415; 80048; 85025; 85610; 85730

== ENCOUNTER 2020-06-13 09:57 | Outpatient (CLI) | payer MEDICAID ==
--- NOTE | 2020-06-13 15:25 | Ultrasound Report ---
PROCEDURE: Abdominal Paracentesis INDICATIONS: ALCOHOLIC CIRRHOSIS OF LIVER W/ASCITES TECHNIQUE: The indications, alternatives, benefits, risks, and complications of the procedure were explained to the patient. Written informed consent was obtained and placed in the chart. The abdomen and pelvis were examined sonographically, and an appropriate site was chosen for paracentesis. The skin was pre pared and draped in the usual sterile fashion, and 1% lidocaine was infiltrated from the skin down th rough the peritoneal surface. A 19-gauge catheter-covered needle was then introduced into the perito valerie space, the catheter was advanced and the needle was withdrawn, and thereafter peritoneal fluid w as withdrawn. The catheter was then removed and a dressing was applied. The fluid was discarded if the clinician did not order diagnostic testing of the fluid. COMPARISON: 06/09/2020 FINDINGS: Access site: Right lower quadrant Needle: One-Step centesis catheter with introducer needle. Fluid volume and description: 10.1 L of mild cloudy, serosanguineous ascites. Fluid sent for diagnostic testing: None. Medications: 1% lidocaine for local anaesthesia. Complications: None. IMPRESSION: Successful ultrasound-guided paracentesis. Reviewed by: Negrito Glez MD on 06/13/2020 3:24 PM PDT Approved by: Negrito Glez MD on 06/13/2020 3:24 PM PDT Station ID: [id number]
== END 2020-06-13 09:58 | disposition home or self-care (01) ==
LOC: DI 09:57
PROVIDERS: ATTEND Internal Medicine
DX: K70.31 Alcoholic cirrhosis of liver with ascites (principal)
CPT/HCPCS: 49083

== ENCOUNTER 2020-06-14 08:00 | Outpatient (CLI) | payer MEDICAID ==
[2020-06-14 12:37] LABS: ALBUMIN 3.3 g/dL (3.2-5.5); ALBUMIN/GLOBULIN RATIO 1.3 (1.0-2.2); BILIRUBIN,TOTAL 1.6 mg/dL (0.2-1.0); CALCIUM 8.6 mg/dL (8.5-10.3); CREATININE 1.3 mg/dL (0.6-1.2); POTASSIUM 5.8 mmol/L (3.5-5.0); TOTAL PROTEIN 5.9 g/dL (6.7-8.2)
== END 2020-06-14 23:59 | disposition home or self-care (01) ==
LOC: LAB.WCP 08:00
PROVIDERS: ATTEND Nurse Practitioner
DX: E87.5 Hyperkalemia (principal)
CPT/HCPCS: 36415; 80053

== ENCOUNTER 2020-06-16 08:32 | Outpatient (CLI) | payer MEDICAID ==
[2020-06-16 09:04] LABS: BASOPHILS # (AUTO) 0.1 10^3/uL (0.0-0.1); BASOPHILS % (AUTO) 1.2 %; EOSINOPHILS # (AUTO) 0.1 10^3/uL (0.0-0.7); EOSINOPHILS % (AUTO) 2.2 %; HCT - HEMATOCRIT 32.2 % (42.0-52.0); HGB - HEMOGLOBIN 11.5 g/dL (14.0-18.0); LYMPHOCYTES # (AUTO) 1.1 10^3/uL (1.5-3.5); LYMPHOCYTES % (AUTO) 18.1 %; MEAN CORPUSCULAR HEMOGLOBIN 32.6 pg (27.0-31.0); MEAN CORPUSCULAR HGB CONC 35.7 g/dL (32.0-36.0); MEAN CORPUSCULAR VOLUME 91.2 fL (80.0-94.0); MEAN PLATELET VOLUME 9.5 fL (7.4-11.4); MONOCYTES # (AUTO) 0.9 10^3/uL (0.0-1.0); MONOCYTES % (AUTO) 15.8 %; NEUTROPHILS # (AUTO) 3.7 10^3/uL (1.5-6.6); NEUTROPHILS % (AUTO) 62.4 %; PLT - PLATELET COUNT 136 10^3/uL (130-450); RED BLOOD COUNT 3.53 10^6/uL (4.70-6.10); RED CELL DISTRIBUTION WIDTH 13.3 % (12.0-15.0); WHITE BLOOD COUNT 5.9 x10^3/uL (4.8-10.8)
[2020-06-16 09:21] LABS: CALCIUM 8.9 mg/dL (8.5-10.3); CREATININE 1.3 mg/dL (0.6-1.2); POTASSIUM 5.2 mmol/L (3.5-5.0)
[2020-06-16 09:46] LABS: INR 1.1 (0.8-1.2); PT - PROTHROMBIN TIME 12.7 secs (9.9-12.6)
[2020-06-16 09:53] LABS: PARTIAL THROMBOPLASTIN TIME 29.5 secs (24.9-33.3)
--- NOTE | 2020-06-16 11:37 | Ultrasound Report ---
PROCEDURE: Abdominal Paracentesis INDICATIONS: ALCOHOLIC CIRRHOSIS OF LIVER W/ASCITES TECHNIQUE: The indications, alternatives, benefits, risks, and complications of the procedure were explained to the patient. Written informed consent was obtained and placed in the chart. The abdomen and pelvis were examined sonographically, and an appropriate site was chosen for paracentesis. The skin was pre pared and draped in the usual sterile fashion, and 1% lidocaine was infiltrated from the skin down th rough the peritoneal surface. A 19-gauge catheter-covered needle was then introduced into the perito valerie space, the catheter was advanced and the needle was withdrawn, and thereafter peritoneal fluid w as withdrawn. The catheter was then removed and a dressing was applied. The fluid was discarded if the clinician did not order diagnostic testing of the fluid. COMPARISON: FINDINGS: Access site: Right lower quadrant Needle: One-Step centesis catheter with introducer needle. Fluid volume and description: 8.1 L of suni fluid Fluid sent for diagnostic testing: Not requested Medications: 1% lidocaine for local anaesthesia. Complications: None. IMPRESSION: Technically successful ultrasound-guided paracentesis. Reviewed by: Hank Busch MD on 06/16/2020 11:35 AM PDT Approved by: Hank Busch MD on 06/16/2020 11:35 AM PDT Station ID: [id number]
== END 2020-06-16 08:33 | disposition home or self-care (01) ==
LOC: DI 08:32
PROVIDERS: ATTEND Internal Medicine
DX: K70.31 Alcoholic cirrhosis of liver with ascites (principal); C22.0 Liver cell carcinoma; E87.5 Hyperkalemia; I10 Essential (primary) hypertension
CPT/HCPCS: 36415; 49083; 80048; 85025; 85610; 85730

== ENCOUNTER 2020-06-17 14:15 | Emergency (ER) | payer MEDICAID ==
[2020-06-17 14:47] LABS: BASOPHILS # (AUTO) 0.1 10^3/uL (0.0-0.1); BASOPHILS % (AUTO) 1.1 %; EOSINOPHILS # (AUTO) 0.1 10^3/uL (0.0-0.7); EOSINOPHILS % (AUTO) 1.1 %; HCT - HEMATOCRIT 35.7 % (42.0-52.0); HGB - HEMOGLOBIN 12.6 g/dL (14.0-18.0); LYMPHOCYTES % (AUTO) 11.2 %; MEAN CORPUSCULAR HEMOGLOBIN 32.2 pg (27.0-31.0); MEAN CORPUSCULAR HGB CONC 35.3 g/dL (32.0-36.0); MEAN CORPUSCULAR VOLUME 91.3 fL (80.0-94.0); MEAN PLATELET VOLUME 9.3 fL (7.4-11.4); MONOCYTES % (AUTO) 11.3 %; NEUTROPHILS # (AUTO) 6.7 10^3/uL (1.5-6.6); NEUTROPHILS % (AUTO) 74.9 %; PLT - PLATELET COUNT 169 10^3/uL (130-450); RED BLOOD COUNT 3.91 10^6/uL (4.70-6.10); RED CELL DISTRIBUTION WIDTH 13.3 % (12.0-15.0)
[2020-06-17] MEDS ORDERED: SODIUM CHLORIDE 0.9% 1,000 ML IV STA ×2 (14:47)
--- NOTE | 2020-06-17 14:53 | ED Physician Documentation ---
History of Present Illness - Stated complaint Stated Complaint: NAUSEA, WEAK - Chief complaint Chief Complaint: General - History obtained from History obtained from: Patient - History of Present Illness Timing: Today Pain level max: 5 Pain level now: 4 - Additonal information Additional information: Patient is a 49-year-old male who presents to the emergency department complaining of nausea and vomiting for the past 2 to 3 days. Cramping in his legs and feeling generally weak. Has a history of cirrhosis and recently diagnosed with liver cancer as well. He recently stopped his spironolactone but is still on Lasix. Has had issues with his blood sugar and potassium recently. He feels lightheaded and dizzy today like he is going to pass out. No abdominal pain. No diarrhea. No blood in the vomit or in his stool. No fevers. No chills. Review of Systems Ten Systems: 10 systems reviewed and negative Constitutional: denies: Fever, Chills Ears: denies: Ear pain Nose: denies: Rhinorrhea / runny nose, Congestion Respiratory: denies: Cough GI: reports: Nausea, Vomiting. denies: Abdominal Pain, Diarrhea, Hematemesis, Bloody / black stool : denies: Dysuria Skin: denies: Rash Musculoskeletal: denies: Neck pain, Back pain Neurologic: denies: Headache PD PAST MEDICAL HISTORY - Past Medical History Cardiovascular: Hypertension, High cholesterol Respiratory: Asthma Neuro: Peripheral neuropathy Endocrine/Autoimmune: Type 2 diabetes GI: Cirrhosis : Retention, Indwelling catheter HEENT: Chronic vision loss Psych: Depression, Anxiety Musculoskeletal: Osteoarthritis Derm: Psoriasis, Other - Past Surgical History Past Surgical History: Yes Ortho: Arthroscopic surgery - Present Medications Home Medications: Ambulatory Orders Medication Instructions Recorded Confirmed Atorvastatin [Lipitor] 40 mg PO QPM 08/17/14 04/10/20 Albuterol Sulfate [Proair Hfa 1 - 2 puffs INH Q4H PRN 11/13/16 04/10/20 Inhaler] Aspirin [Adult Low Dose Aspirin EC] 81 mg PO DAILY 11/13/16 04/10/20 Insulin Glargine,Hum.rec.anlog 65 units SUBQ DAILY PM 11/13/16 04/10/20 [Basaglar Kwikpen U-100] Insulin Regular, Human [Humulin R] 15 - 30 units SUBQ TIDWM 11/13/16 04/10/20 Fluticasone Propionate [Flovent 1 puffs IH DAILY 02/15/20 04/10/20 Diskus] buPROPion HCL [Bupropion HCl Sr] 150 mg PO BID 02/15/20 04/10/20 Clotrimazole/Betamethasone Crm 1 applic TOP BID #30 g 03/04/20 04/10/20 [Lotrisone Cream] Multivitamin W/Minerals [Theragran 1 tab PO DAILY #30 tablet 03/29/20 04/10/20 M] Spironolactone [Aldactone] 100 mg PO DAILY 04/04/20 04/10/20 Furosemide [Lasix] 40 mg PO DAILY 04/10/20 04/10/20 - Allergies Allergies/Adverse Reactions: Allergies Allergy/AdvReac Type Severity Reaction Status Date / Time lisinopril Allergy Unknown Verified 06/17/20 14:28 - Social History Does the pt smoke?: No Smoking Status: Never smoker Does the pt drink ETOH?: No Does the pt have substance abuse?: No - Immunizations Immunizations are current?: Yes - POLST Patient has POLST: No PD ED PE NORMAL - Vitals Vital signs reviewed: Yes - General General: Alert and oriented X 3, No acute distress - HEENT HEENT: Moist mucous membranes - Neck Neck: Supple, no meningeal sign - Cardiac Cardiac: RRR, Strong equal pulses - Respiratory Respiratory: No respiratory distress, Clear bilaterally - Abdomen Abdomen: Soft, Non tender, Non distended - Derm Derm: Warm and dry - Extremities Extremities: No edema, No calf tenderness / cord - Neuro Neuro: Alert and oriented X 3 - Psych Psych: Normal mood, Normal affect Results - Vitals Vitals: Vital Signs - 24 hr 06/17/20 06/17/20 06/17/20 14:22 16:28 17:42 Temperature 37.3 C Heart Rate 103 H 97 95 Respiratory 20 15 16 Rate Blood Pressure 111/62 129/76 130/80 O2 Saturation 98 100 99 Oxygen O2 Source Room air - EKG (time done) 1508 Rate: Rate (enter#) (96) Rhythm: NSR Chappell: Normal Intervals: Normal VA QRS: Normal Ischemia: Normal ST segments - Labs Labs: Laboratory Tests 06/17/20 06/17/20 06/17/20 14:40 14:40 14:40 WBC 9.0 RBC 3.91 L Hgb 12.6 L Hct 35.7 L MCV 91.3 MCH 32.2 H MCHC 35.3 RDW 13.3 Plt Count 169 MPV 9.3 Neut # (Auto) 6.7 H Lymph # (Auto) 1.0 L Benzie # (Auto) 1.0 Eos # (Auto) 0.1 Baso # (Auto) 0.1 Absolute Nucleated RBC 0.00 Nucleated RBC % 0.0 VBG pH VBG pCO2 VBG pO2 VBG HCO3 VBG Total CO2 VBG O2 Saturation VBG Base Excess Sodium 125 L Potassium 5.8 H Chloride 94 L Carbon Dioxide 22 Anion Gap 9.0 BUN 47 H Creatinine 1.2 Estimated GFR (MDRD) 64 L Glucose 406 H POC Whole Bld Glucose Estimat Average Glucose Hemoglobin A1c % Calcium 9.3 Phosphorus 3.9 Magnesium 2.5 Total Bilirubin 2.0 H AST 43 H ALT 38 Alkaline Phosphatase 94 Total Protein 6.8 Albumin 3.7 Globulin 3.1 Albumin/Globulin Ratio 1.2 Lipase 158 H Urine Color Urine Clarity Urine pH Ur Specific Douglass Urine Protein Urine Glucose (UA) Urine Ketones Urine Occult Blood Urine Nitrite Urine Bilirubin Urine Urobilinogen Ur Leukocyte Esterase Ur Microscopic Review Urine Culture Comments Serum Ketones NEGATIVE 06/17/20 06/17/20 06/17/20 14:40 14:56 14:58 WBC RBC Hgb Hct MCV MCH MCHC RDW Plt Count MPV Neut # (Auto) Lymph # (Auto) Benzie # (Auto) Eos # (Auto) Baso # (Auto) Absolute Nucleated RBC Nucleated RBC % VBG pH 7.367 VBG pCO2 36.8 L VBG pO2 27.8 VBG HCO3 20.7 L VBG Total CO2 21.8 L VBG O2 Saturation 53.6 L VBG Base Excess -4.1 L Sodium Potassium Chloride Carbon Dioxide Anion Gap BUN Creatinine Estimated GFR (MDRD) Glucose POC Whole Bld Glucose 382 H Estimat Average Glucose 266 H Hemoglobin A1c % 10.9 H Calcium Phosphorus Magnesium Total Bilirubin AST ALT Alkaline Phosphatase Total Protein Albumin Globulin Albumin/Globulin Ratio Lipase Urine Color Urine Clarity Urine pH Ur Specific Douglass Urine Protein Urine Glucose (UA) Urine Ketones Urine Occult Blood Urine Nitrite Urine Bilirubin Urine Urobilinogen Ur Leukocyte Esterase Ur Microscopic Review Urine Culture Comments Serum Ketones 06/17/20 06/17/20 06/17/20 16:02 16:58 17:09 WBC RBC Hgb Hct MCV MCH MCHC RDW Plt Count MPV Neut # (Auto) Lymph # (Auto) Benzie # (Auto) Eos # (Auto) Baso # (Auto) Absolute Nucleated RBC Nucleated RBC % VBG pH VBG pCO2 VBG pO2 VBG HCO3 VBG Total CO2 VBG O2 Saturation VBG Base Excess Sodium 127 L Potassium 5.9 H Chloride 98 L Carbon Dioxide 22 Anion Gap 7.0 BUN 45 H Creatinine 1.2 Estimated GFR (MDRD) 64 L Glucose 306 H POC Whole Bld Glucose 306 H Estimat Average Glucose Hemoglobin A1c % Calcium 8.8 Phosphorus Magnesium Total Bilirubin AST ALT Alkaline Phosphatase Total Protein Albumin Globulin Albumin/Globulin Ratio Lipase Urine Color DARK YELLOW Urine Clarity CLEAR Urine pH 5.5 Ur Specific Douglass 1.020 Urine Protein NEGATIVE Urine Glucose (UA) 500 H Urine Ketones NEGATIVE Urine Occult Blood TRACE-INTA Urine Nitrite NEGATIVE Urine Bilirubin NEGATIVE Urine Urobilinogen 0.2 (NORMAL) Ur Leukocyte Esterase NEGATIVE Ur Microscopic Review NOT INDICATED Urine Culture Comments NOT INDICATED Serum Ketones 06/17/20 17:14 WBC RBC Hgb Hct MCV MCH MCHC RDW Plt Count MPV Neut # (Auto) Lymph # (Auto) Benzie # (Auto) Eos # (Auto) Baso # (Auto) Absolute Nucleated RBC Nucleated RBC % VBG pH VBG pCO2 VBG pO2 VBG HCO3 VBG Total CO2 VBG O2 Saturation VBG Base Excess Sodium Potassium Chloride Carbon Dioxide Anion Gap BUN Creatinine Estimated GFR (MDRD) Glucose POC Whole Bld Glucose 294 H Estimat Average Glucose Hemoglobin A1c % Calcium Phosphorus Magnesium Total Bilirubin AST ALT Alkaline Phosphatase Total Protein Albumin Globulin Albumin/Globulin Ratio Lipase Urine Color Urine Clarity Urine pH Ur Specific Douglass Urine Protein Urine Glucose (UA) Urine Ketones Urine Occult Blood Urine Nitrite Urine Bilirubin Urine Urobilinogen Ur Leukocyte Esterase Ur Microscopic Review Urine Culture Comments Serum Ketones PD MEDICAL DECISION MAKING - ED course Complexity details: reviewed results, re-evaluated patient, considered differential, d/w patient ED course: Patient is a 49-year-old male with liver cancer, cirrhosis, ascites and diabetes. Blood sugars been poorly controlled, over 500 for the past several weeks on laboratory testing. Has had chronic hyperkalemia, 5.8-6.1 for several weeks as well. He was given IV fluids, insulin here. Blood sugar decreased. He feels much better overall. Leg pain and cramping resolved. His sodium improved, likely due to pseudohyponatremia. No acute findings on EKG. No peak T waves. We will have the patient follow-up closely with his doctor for further care. Tolerating p.o. without difficulty here. Stressed the importance of keeping his blood sugar well controlled at home to the patient. Patient counseled regarding signs and symptoms for which I believe and urgent re- evaluation would be necessary. Patient with good understanding of and agreement to plan and is comfortable going home at this time This document was made in part using voice recognition software. While efforts are made to proofread this document, sound alike and grammatical errors may occur. Departure - Departure Disposition: Home, Self Care Clinical Impression: Hyperglycemia, Hyperkalemia, Dehydration Condition: Good Instructions: ED Dehydration Follow-Up: Montrell Brady MD [Primary Care Provider] - Within 3 Days Comments: Follow-up with your doctor early next week to recheck your electrolytes. Return sooner if you worsen. You need to keep your blood sugar under 300 at home. Y our average right now over the last 3 months is about 266. This will worsen your dehydration, sodium and potassium issues. Make sure to follow-up with your doctor for repeat lab work on Friday. Discharge Date/Time: 06/17/20 17:51
[2020-06-17 15:01] LABS: ALBUMIN 3.7 g/dL (3.2-5.5); ALBUMIN/GLOBULIN RATIO 1.2 (1.0-2.2); CALCIUM 9.3 mg/dL (8.5-10.3); CREATININE 1.2 mg/dL (0.6-1.2); MAGNESIUM 2.5 mg/dL (1.7-2.8); PHOSPHORUS 3.9 mg/dL (2.5-4.6); POTASSIUM 5.8 mmol/L (3.5-5.0); TOTAL PROTEIN 6.8 g/dL (6.7-8.2)
[2020-06-17] MEDS ORDERED: INSULIN REGULAR HUMAN 100 UNIT/1 ML 10 ML MDV SUBQ STA ×2 (15:07→16:26)
[2020-06-17 15:11] LABS: VBG BASE EXCESS -4.1 mmol/L (-2 - +2); VBG HCO3 20.7 mmol/L (23-28); VBG OXYGEN SATURATION 53.6 % (60-80); VBG PCO2 36.8 mmHg (41-51); VBG PH 7.367 (7.31-7.41); VBG PO2 27.8 mmHg (25-47); VBG TOTAL CO2 21.8 mmol/L (24-29)
[2020-06-17 16:43] LABS: ESTIMATED AVERAGE GLUCOSE 266 mg/dL (70-100); HEMOGLOBIN A1c% 10.9 % (4.27-6.07)
[2020-06-17 17:12] LABS: CALCIUM 8.8 mg/dL (8.5-10.3); CREATININE 1.2 mg/dL (0.6-1.2); POTASSIUM 5.9 mmol/L (3.5-5.0)
[2020-06-17 17:21] LABS: BILIRUBIN,URINE NEGATIVE (NEGATIVE); GLUCOSE, URINE (UA) 500 mg/dL (NEGATIVE); KETONES,URINE (UA) NEGATIVE (NEGATIVE); LEUKOCYTE ESTERASE, URINE NEGATIVE (NEGATIVE); NITRITE,URINE NEGATIVE (NEGATIVE); OCCULT BLOOD,URINE TRACE-INTA (NEGATIVE); PH,URINE 5.5 PH (5.0-7.5); PROTEIN,URINE NEGATIVE (NEGATIVE); UROBILINOGEN,URINE 0.2 (NORMAL) E.U./dL (NORMAL)
[2020-06-17 17:30] LABS: CLARITY,URINE CLEAR (CLEAR)
[2020-06-17 17:43] VITALS: BP 130/80
== END 2020-06-17 17:51 | disposition home or self-care (01) ==
LOC: ED 14:15
DX: E11.42 Type 2 diabetes mellitus with diabetic polyneuropathy (principal); E11.65 Type 2 diabetes mellitus with hyperglycemia; E86.0 Dehydration; E87.5 Hyperkalemia; C22.8 Malignant neoplasm of liver, primary, unspecified as to type; I10 Essential (primary) hypertension; Z79.4 Long term (current) use of insulin
CPT/HCPCS: 36415; 80048; 80053; 81001; 81003; 82009; 82803; 83036; 83690; 83735; 84100; 85025; 87086; 93005; 96360; 96361; 99284

== ENCOUNTER 2020-06-21 12:08 | Outpatient (CLI) | payer MEDICAID ==
[2020-06-21 12:20] LABS: BASOPHILS # (AUTO) 0.1 10^3/uL (0.0-0.1); BASOPHILS % (AUTO) 1.4 %; EOSINOPHILS # (AUTO) 0.1 10^3/uL (0.0-0.7); EOSINOPHILS % (AUTO) 1.7 %; HCT - HEMATOCRIT 36.4 % (42.0-52.0); HGB - HEMOGLOBIN 12.6 g/dL (14.0-18.0); LYMPHOCYTES % (AUTO) 14.6 %; MEAN CORPUSCULAR HEMOGLOBIN 32.4 pg (27.0-31.0); MEAN CORPUSCULAR HGB CONC 34.6 g/dL (32.0-36.0); MEAN CORPUSCULAR VOLUME 93.6 fL (80.0-94.0); MEAN PLATELET VOLUME 9.2 fL (7.4-11.4); MONOCYTES % (AUTO) 15.8 %; NEUTROPHILS # (AUTO) 4.3 10^3/uL (1.5-6.6); NEUTROPHILS % (AUTO) 65.7 %; PLT - PLATELET COUNT 162 10^3/uL (130-450); RED BLOOD COUNT 3.89 10^6/uL (4.70-6.10); RED CELL DISTRIBUTION WIDTH 13.6 % (12.0-15.0); WHITE BLOOD COUNT 6.6 x10^3/uL (4.8-10.8)
[2020-06-21 12:34] LABS: INR 1.1 (0.8-1.2); PT - PROTHROMBIN TIME 12.6 secs (9.9-12.6)
[2020-06-21 12:41] LABS: CREATININE 1.2 mg/dL (0.6-1.2); PARTIAL THROMBOPLASTIN TIME 30.4 secs (24.9-33.3)
[2020-06-21 12:44] LABS: POTASSIUM 6.3 mmol/L (3.5-5.0)
--- NOTE | 2020-06-21 15:56 | Ultrasound Report ---
PROCEDURE: Abdominal Paracentesis INDICATIONS: ALCOHOLIC CIRRHOSIS OF LIVER W/ASCITES TECHNIQUE: The indications, alternatives, benefits, risks, and complications of the procedure were explained to the patient. Written informed consent was obtained and placed in the chart. The abdomen and pelvis were examined sonographically, and an appropriate site was chosen for paracentesis. The skin was pre pared and draped in the usual sterile fashion, and 1% lidocaine was infiltrated from the skin down th rough the peritoneal surface. A 19-gauge catheter-covered needle was then introduced into the perito valerie space, the catheter was advanced and the needle was withdrawn, and thereafter peritoneal fluid w as withdrawn. The catheter was then removed and a dressing was applied. The fluid was discarded if the clinician did not order diagnostic testing of the fluid. COMPARISON: 06/16/2020 FINDINGS: Access site: Right lower quadrant Needle: One-Step centesis catheter with introducer needle. Fluid volume and description: 8.0 L of mildly cloudy straw-colored ascites with minimal serosanguine ous component. Fluid sent for diagnostic testing: None sent for testing. Medications: 1% lidocaine for local anaesthesia. Complications: None. IMPRESSION: Successful ultrasound-guided paracentesis. Reviewed by: Negrito Glez MD on 06/21/2020 3:55 PM PDT Approved by: Negrito Glez MD on 06/21/2020 3:55 PM PDT Station ID: [id number]
== END 2020-06-21 12:09 | disposition home or self-care (01) ==
LOC: DI 12:08
PROVIDERS: ATTEND Internal Medicine
DX: K70.31 Alcoholic cirrhosis of liver with ascites (principal)
CPT/HCPCS: 36415; 49083; 80048; 85025; 85610; 85730

== ENCOUNTER 2020-06-23 12:11 | Outpatient (CLI) | payer MEDICAID ==
[2020-06-23 12:32] LABS: BASOPHILS # (AUTO) 0.1 10^3/uL (0.0-0.1); BASOPHILS % (AUTO) 1.5 %; EOSINOPHILS # (AUTO) 0.2 10^3/uL (0.0-0.7); EOSINOPHILS % (AUTO) 1.9 %; HCT - HEMATOCRIT 35.1 % (42.0-52.0); HGB - HEMOGLOBIN 12.4 g/dL (14.0-18.0); LYMPHOCYTES # (AUTO) 1.2 10^3/uL (1.5-3.5); LYMPHOCYTES % (AUTO) 14.6 %; MEAN CORPUSCULAR HEMOGLOBIN 32.6 pg (27.0-31.0); MEAN CORPUSCULAR HGB CONC 35.3 g/dL (32.0-36.0); MEAN CORPUSCULAR VOLUME 92.4 fL (80.0-94.0); MEAN PLATELET VOLUME 9.4 fL (7.4-11.4); MONOCYTES # (AUTO) 1.1 10^3/uL (0.0-1.0); NEUTROPHILS # (AUTO) 5.3 10^3/uL (1.5-6.6); NEUTROPHILS % (AUTO) 67.4 %; PLT - PLATELET COUNT 155 10^3/uL (130-450); RED CELL DISTRIBUTION WIDTH 13.6 % (12.0-15.0); WHITE BLOOD COUNT 7.9 x10^3/uL (4.8-10.8)
[2020-06-23 12:36] LABS: INR 1.2 (0.8-1.2); PT - PROTHROMBIN TIME 13.3 secs (9.9-12.6)
[2020-06-23 12:41] LABS: CALCIUM 9.1 mg/dL (8.5-10.3); CREATININE 1.6 mg/dL (0.6-1.2)
[2020-06-23 12:43] LABS: PARTIAL THROMBOPLASTIN TIME 30.4 secs (24.9-33.3)
[2020-06-23 12:51] LABS: POTASSIUM 6.2 mmol/L (3.5-5.0)
--- NOTE | 2020-06-23 16:02 | Ultrasound Report ---
PROCEDURE: Abdominal Paracentesis INDICATIONS: ALCHOLIC CIRRHOSIS OF LIVER W/ASCITES TECHNIQUE: The indications, alternatives, benefits, risks, and complications of the procedure were explained to the patient. Written informed consent was obtained and placed in the chart. The abdomen and pelvis were examined sonographically, and an appropriate site was chosen for paracentesis. The skin was pre pared and draped in the usual sterile fashion, and 1% lidocaine was infiltrated from the skin down th rough the peritoneal surface. A 19-gauge catheter-covered needle was then introduced into the perito valerie space, the catheter was advanced and the needle was withdrawn, and thereafter peritoneal fluid w as withdrawn. The catheter was then removed and a dressing was applied. The fluid was discarded if the clinician did not order diagnostic testing of the fluid. COMPARISON: None FINDINGS: Access site: Right lower quadrant Needle: One-Step centesis catheter with introducer needle. Fluid volume and description: 6.7 L of yellowish fluid. Fluid sent for diagnostic testing: No Medications: 1% lidocaine for local anaesthesia. Complications: None. IMPRESSION: Successful ultrasound-guided paracentesis. Reviewed by: Carlos Orellana MD on 06/23/2020 4:01 PM PDT Approved by: Carlos Orellana MD on 06/23/2020 4:01 PM PDT Station ID: [id number]
== END 2020-06-23 12:12 | disposition home or self-care (01) ==
LOC: DI 12:11
PROVIDERS: ATTEND Internal Medicine
DX: K70.31 Alcoholic cirrhosis of liver with ascites (principal)
CPT/HCPCS: 36415; 49083; 80048; 85025; 85610; 85730

== ENCOUNTER 2020-06-27 08:07 | Outpatient (CLI) | payer MEDICAID ==
[2020-06-27 08:25] LABS: BASOPHILS # (AUTO) 0.1 10^3/uL (0.0-0.1); BASOPHILS % (AUTO) 1.4 %; EOSINOPHILS # (AUTO) 0.2 10^3/uL (0.0-0.7); EOSINOPHILS % (AUTO) 2.6 %; HCT - HEMATOCRIT 33.3 % (42.0-52.0); HGB - HEMOGLOBIN 11.6 g/dL (14.0-18.0); LYMPHOCYTES # (AUTO) 0.8 10^3/uL (1.5-3.5); LYMPHOCYTES % (AUTO) 14.6 %; MEAN CORPUSCULAR HEMOGLOBIN 32.3 pg (27.0-31.0); MEAN CORPUSCULAR HGB CONC 34.8 g/dL (32.0-36.0); MEAN CORPUSCULAR VOLUME 92.8 fL (80.0-94.0); MEAN PLATELET VOLUME 9.8 fL (7.4-11.4); MONOCYTES # (AUTO) 0.8 10^3/uL (0.0-1.0); MONOCYTES % (AUTO) 14.5 %; NEUTROPHILS # (AUTO) 3.8 10^3/uL (1.5-6.6); NEUTROPHILS % (AUTO) 66.4 %; PLT - PLATELET COUNT 139 10^3/uL (130-450); RED BLOOD COUNT 3.59 10^6/uL (4.70-6.10); RED CELL DISTRIBUTION WIDTH 13.2 % (12.0-15.0); WHITE BLOOD COUNT 5.7 x10^3/uL (4.8-10.8)
[2020-06-27 08:27] LABS: INR 1.2 (0.8-1.2); PT - PROTHROMBIN TIME 12.8 secs (9.9-12.6)
[2020-06-27 08:35] LABS: PARTIAL THROMBOPLASTIN TIME 30.2 secs (24.9-33.3)
[2020-06-27 08:43] LABS: CALCIUM 8.4 mg/dL (8.5-10.3); POTASSIUM 3.7 mmol/L (3.5-5.0)
--- NOTE | 2020-06-27 17:41 | Ultrasound Report ---
PROCEDURE: Abdominal Paracentesis INDICATIONS: ALCOHOLIC CIRRHOSIS OF LIVER W/ASCITES TECHNIQUE: The indications, alternatives, benefits, risks, and complications of the procedure were explained to the patient. Written informed consent was obtained and placed in the chart. The abdomen and pelvis were examined sonographically, and an appropriate site was chosen for paracentesis. The skin was pre pared and draped in the usual sterile fashion, and 1% lidocaine was infiltrated from the skin down th rough the peritoneal surface. A 19-gauge catheter-covered needle was then introduced into the perito valerie space, the catheter was advanced and the needle was withdrawn, and thereafter peritoneal fluid w as withdrawn. The catheter was then removed and a dressing was applied. The fluid was discarded if the clinician did not order diagnostic testing of the fluid. COMPARISON: 06/23/2020 FINDINGS: Access site: Right lower quadrant Needle: One-Step centesis catheter with introducer needle. Fluid volume and description: 9.7 L of cloudy, straw-colored ascites. Fluid sent for diagnostic testing: None sent for testing. Medications: 1% lidocaine for local anaesthesia. Complications: None. IMPRESSION: Successful ultrasound-guided paracentesis. Reviewed by: Negrito Glez MD on 06/27/2020 5:39 PM PDT Approved by: Negrito Glez MD on 06/27/2020 5:39 PM PDT Station ID: [id number]
== END 2020-06-27 08:08 | disposition home or self-care (01) ==
LOC: DI 08:07
PROVIDERS: ATTEND Internal Medicine
DX: K70.31 Alcoholic cirrhosis of liver with ascites (principal)
CPT/HCPCS: 36415; 49083; 80048; 85025; 85610; 85730

== ENCOUNTER 2020-06-30 08:03 | Outpatient (CLI) | payer MEDICAID ==
[2020-06-30 08:07] LABS: BASOPHILS # (AUTO) 0.1 10^3/uL (0.0-0.1); BASOPHILS % (AUTO) 1.7 %; EOSINOPHILS # (AUTO) 0.2 10^3/uL (0.0-0.7); EOSINOPHILS % (AUTO) 2.3 %; HCT - HEMATOCRIT 34.8 % (42.0-52.0); HGB - HEMOGLOBIN 12.3 g/dL (14.0-18.0); LYMPHOCYTES % (AUTO) 15.7 %; MEAN CORPUSCULAR HEMOGLOBIN 32.8 pg (27.0-31.0); MEAN CORPUSCULAR HGB CONC 35.3 g/dL (32.0-36.0); MEAN CORPUSCULAR VOLUME 92.8 fL (80.0-94.0); MEAN PLATELET VOLUME 9.5 fL (7.4-11.4); MONOCYTES # (AUTO) 0.9 10^3/uL (0.0-1.0); MONOCYTES % (AUTO) 13.6 %; NEUTROPHILS # (AUTO) 4.3 10^3/uL (1.5-6.6); NEUTROPHILS % (AUTO) 66.2 %; PLT - PLATELET COUNT 155 10^3/uL (130-450); RED BLOOD COUNT 3.75 10^6/uL (4.70-6.10); RED CELL DISTRIBUTION WIDTH 13.4 % (12.0-15.0); WHITE BLOOD COUNT 6.6 x10^3/uL (4.8-10.8)
[2020-06-30 08:10] LABS: INR 1.2 (0.8-1.2); PT - PROTHROMBIN TIME 12.9 secs (9.9-12.6)
[2020-06-30 08:13] LABS: CREATININE 1.1 mg/dL (0.6-1.2); POTASSIUM 4.5 mmol/L (3.5-5.0)
[2020-06-30 08:17] LABS: PARTIAL THROMBOPLASTIN TIME 30.5 secs (24.9-33.3)
--- NOTE | 2020-06-30 13:17 | Ultrasound Report ---
PROCEDURE: Abdominal Paracentesis INDICATIONS: ALCOHOLIC CIRRHOSIS OF LIVER W/ASCITES TECHNIQUE: The indications, alternatives, benefits, risks, and complications of the procedure were explained to the patient. Written informed consent was obtained and placed in the chart. The abdomen and pelvis were examined sonographically, and an appropriate site was chosen for paracentesis. The skin was pre pared and draped in the usual sterile fashion, and 1% lidocaine was infiltrated from the skin down th rough the peritoneal surface. A 19-gauge catheter-covered needle was then introduced into the perito valerie space, the catheter was advanced and the needle was withdrawn, and thereafter peritoneal fluid w as withdrawn. The catheter was then removed and a dressing was applied. The fluid was discarded if the clinician did not order diagnostic testing of the fluid. COMPARISON: FINDINGS: Access site: Right lateral abdominal body wall Needle: One-Step centesis catheter with introducer needle. Fluid volume and description: 8.8 L, mildly chylous ascites. Fluid sent for diagnostic testing: Not requested Medications: 1% lidocaine for local anaesthesia. Complications: None. IMPRESSION: Successful ultrasound-guided paracentesis. Reviewed by: Emeka Nuñez MD on 06/30/2020 1:16 PM PDT Approved by: Emeka Nuñez MD on 06/30/2020 1:16 PM PDT Station ID: [id number]
== END 2020-06-30 08:04 | disposition home or self-care (01) ==
LOC: DI 08:03
PROVIDERS: ATTEND Internal Medicine
DX: K70.31 Alcoholic cirrhosis of liver with ascites (principal)
CPT/HCPCS: 36415; 49083; 80048; 85025; 85610; 85730

== ENCOUNTER 2020-07-04 08:30 | Outpatient (CLI) | payer MEDICAID ==
[2020-07-04 08:48] LABS: BASOPHILS # (AUTO) 0.1 10^3/uL (0.0-0.1); BASOPHILS % (AUTO) 1.5 %; EOSINOPHILS # (AUTO) 0.2 10^3/uL (0.0-0.7); EOSINOPHILS % (AUTO) 2.6 %; HCT - HEMATOCRIT 34.1 % (42.0-52.0); HGB - HEMOGLOBIN 11.8 g/dL (14.0-18.0); LYMPHOCYTES # (AUTO) 1.1 10^3/uL (1.5-3.5); LYMPHOCYTES % (AUTO) 18.2 %; MEAN CORPUSCULAR HEMOGLOBIN 32.9 pg (27.0-31.0); MEAN CORPUSCULAR HGB CONC 34.6 g/dL (32.0-36.0); MEAN PLATELET VOLUME 9.9 fL (7.4-11.4); MONOCYTES # (AUTO) 0.7 10^3/uL (0.0-1.0); MONOCYTES % (AUTO) 12.2 %; NEUTROPHILS # (AUTO) 3.8 10^3/uL (1.5-6.6); NEUTROPHILS % (AUTO) 64.8 %; PLT - PLATELET COUNT 136 10^3/uL (130-450); RED BLOOD COUNT 3.59 10^6/uL (4.70-6.10); RED CELL DISTRIBUTION WIDTH 13.8 % (12.0-15.0); WHITE BLOOD COUNT 5.9 x10^3/uL (4.8-10.8)
[2020-07-04 08:52] LABS: INR 1.2 (0.8-1.2)
[2020-07-04 08:55] LABS: CREATININE 1.2 mg/dL (0.6-1.2); POTASSIUM 5.3 mmol/L (3.5-5.0)
[2020-07-04 08:59] LABS: PARTIAL THROMBOPLASTIN TIME 30.4 secs (24.9-33.3)
--- NOTE | 2020-07-05 14:57 | Ultrasound Report ---
PROCEDURE: Abdominal Paracentesis INDICATIONS: ALCOHOLIC CIRRHOSIS OF LIVER W/ASCITES TECHNIQUE: The indications, alternatives, benefits, risks, and complications of the procedure were explained to the patient. Written informed consent was obtained and placed in the chart. The abdomen and pelvis were examined sonographically, and an appropriate site was chosen for paracentesis. The skin was pre pared and draped in the usual sterile fashion, and 1% lidocaine was infiltrated from the skin down th rough the peritoneal surface. A 19-gauge catheter-covered needle was then introduced into the perito valerie space, the catheter was advanced and the needle was withdrawn, and thereafter peritoneal fluid w as withdrawn. The catheter was then removed and a dressing was applied. The fluid was discarded if the clinician did not order diagnostic testing of the fluid. COMPARISON: None FINDINGS: Access site: Right lower quadrant Needle: One-Step centesis catheter with introducer needle. Fluid volume and description: 8.7 L cloudy straw-colored fluid Fluid sent for diagnostic testing: None Medications: 1% lidocaine for local anaesthesia. Complications: None. IMPRESSION: Successful ultrasound-guided paracentesis. Patient is scheduled to receive albumin replacement im mediately following. Reviewed by: Davonte Victor MD on 07/04/2020 4:54 PM PDT Approved by: Davonte Victor MD on 07/04/2020 4:54 PM PDT Station ID: [id number]
== END 2020-07-04 08:31 | disposition home or self-care (01) ==
LOC: DI 08:30
PROVIDERS: ATTEND Internal Medicine
DX: K70.31 Alcoholic cirrhosis of liver with ascites (principal)
CPT/HCPCS: 36415; 49083; 80048; 85025; 85610; 85730

== ENCOUNTER 2020-07-07 07:55 | Outpatient (CLI) | payer MEDICAID ==
--- NOTE | 2020-07-07 12:31 | Ultrasound Report ---
PROCEDURE: Abdominal Paracentesis INDICATIONS: ALCOHOLIC CIRRHOSIS OF LIVER W/ASCITES TECHNIQUE: The indications, alternatives, benefits, risks, and complications of the procedure were explained to the patient. Written informed consent was obtained and placed in the chart. The abdomen and pelvis were examined sonographically, and an appropriate site was chosen for paracentesis. The skin was pre pared and draped in the usual sterile fashion, and 1% lidocaine was infiltrated from the skin down th rough the peritoneal surface. A 19-gauge catheter-covered needle was then introduced into the perito valerie space, the catheter was advanced and the needle was withdrawn, and thereafter peritoneal fluid w as withdrawn. The catheter was then removed and a dressing was applied. The fluid was discarded if the clinician did not order diagnostic testing of the fluid. COMPARISON: None FINDINGS: Access site: Right lower quadrant Needle: One-Step centesis catheter with introducer needle. Fluid volume and description: 8.9 L, straw-colored Fluid sent for diagnostic testing: None Medications: 1% lidocaine for local anaesthesia. Complications: None. IMPRESSION: Successful ultrasound-guided paracentesis. Reviewed by: Joanne Cabral MD on 07/07/2020 12:30 PM PDT Approved by: Joanne Cabral MD on 07/07/2020 12:30 PM PDT Station ID: [id number]
== END 2020-07-07 07:56 | disposition home or self-care (01) ==
LOC: DI 07:55
PROVIDERS: ATTEND Internal Medicine
DX: K70.31 Alcoholic cirrhosis of liver with ascites (principal)
CPT/HCPCS: 36415; 49083; 80048; 85025; 85610; 85730

== ENCOUNTER 2020-07-07 07:57 | Outpatient (CLI) | payer MEDICAID ==
[2020-07-07 08:15] LABS: BASOPHILS # (AUTO) 0.1 10^3/uL (0.0-0.1); BASOPHILS % (AUTO) 1.9 %; EOSINOPHILS # (AUTO) 0.2 10^3/uL (0.0-0.7); EOSINOPHILS % (AUTO) 2.7 %; HCT - HEMATOCRIT 34.6 % (42.0-52.0); HGB - HEMOGLOBIN 11.7 g/dL (14.0-18.0); LYMPHOCYTES % (AUTO) 16.4 %; MEAN CORPUSCULAR HEMOGLOBIN 32.4 pg (27.0-31.0); MEAN CORPUSCULAR HGB CONC 33.8 g/dL (32.0-36.0); MEAN CORPUSCULAR VOLUME 95.8 fL (80.0-94.0); MONOCYTES # (AUTO) 0.9 10^3/uL (0.0-1.0); NEUTROPHILS % (AUTO) 64.4 %; PLT - PLATELET COUNT 140 10^3/uL (130-450); RED BLOOD COUNT 3.61 10^6/uL (4.70-6.10); RED CELL DISTRIBUTION WIDTH 13.4 % (12.0-15.0); WHITE BLOOD COUNT 6.2 x10^3/uL (4.8-10.8)
[2020-07-07 08:19] LABS: INR 1.2 (0.8-1.2)
[2020-07-07 08:30] LABS: CALCIUM 8.8 mg/dL (8.5-10.3); CREATININE 1.1 mg/dL (0.6-1.2); POTASSIUM 4.8 mmol/L (3.5-5.0)
== END 2020-07-07 07:58 | disposition home or self-care (01) ==
LOC: LAB 07:57
PROVIDERS: ATTEND Internal Medicine
DX: K70.31 Alcoholic cirrhosis of liver with ascites (principal)
CPT/HCPCS: 36415; 80048; 85025; 85610; 85730

== ENCOUNTER 2020-07-11 08:06 | Outpatient (CLI) | payer MEDICAID ==
[2020-07-11 08:21] LABS: BASOPHILS # (AUTO) 0.1 10^3/uL (0.0-0.1); BASOPHILS % (AUTO) 1.3 %; EOSINOPHILS # (AUTO) 0.2 10^3/uL (0.0-0.7); EOSINOPHILS % (AUTO) 3.2 %; HCT - HEMATOCRIT 34.5 % (42.0-52.0); HGB - HEMOGLOBIN 11.6 g/dL (14.0-18.0); LYMPHOCYTES # (AUTO) 1.3 10^3/uL (1.5-3.5); LYMPHOCYTES % (AUTO) 21.5 %; MEAN CORPUSCULAR HEMOGLOBIN 32.4 pg (27.0-31.0); MEAN CORPUSCULAR HGB CONC 33.6 g/dL (32.0-36.0); MEAN CORPUSCULAR VOLUME 96.4 fL (80.0-94.0); MEAN PLATELET VOLUME 10.2 fL (7.4-11.4); MONOCYTES # (AUTO) 0.9 10^3/uL (0.0-1.0); MONOCYTES % (AUTO) 15.5 %; NEUTROPHILS # (AUTO) 3.5 10^3/uL (1.5-6.6); PLT - PLATELET COUNT 147 10^3/uL (130-450); RED BLOOD COUNT 3.58 10^6/uL (4.70-6.10); RED CELL DISTRIBUTION WIDTH 13.4 % (12.0-15.0)
[2020-07-11 08:27] LABS: INR 1.1 (0.8-1.2); PT - PROTHROMBIN TIME 12.6 secs (9.9-12.6)
[2020-07-11 08:33] LABS: CALCIUM 9.1 mg/dL (8.5-10.3); POTASSIUM 5.4 mmol/L (3.5-5.0)
[2020-07-11 08:35] LABS: PARTIAL THROMBOPLASTIN TIME 31.2 secs (24.9-33.3)
--- NOTE | 2020-07-11 15:26 | Ultrasound Report ---
PROCEDURE: Abdominal Paracentesis INDICATIONS: ALCOHOLIC CIRRHOSIS OF LIVER W/ASCITES TECHNIQUE: The indications, alternatives, benefits, risks, and complications of the procedure were explained to the patient. Written informed consent was obtained and placed in the chart. The abdomen and pelvis were examined sonographically, and an appropriate site was chosen for paracentesis. The skin was pre pared and draped in the usual sterile fashion, and 1% lidocaine was infiltrated from the skin down th rough the peritoneal surface. A 19-gauge catheter-covered needle was then introduced into the perito valerie space, the catheter was advanced and the needle was withdrawn, and thereafter peritoneal fluid w as withdrawn. The catheter was then removed and a dressing was applied. The fluid was discarded if the clinician did not order diagnostic testing of the fluid. COMPARISON: 07/07/2020 FINDINGS: Access site: Right lower quadrant Needle: One-Step centesis catheter with introducer needle. Fluid volume and description: 8.8 L, cloudy straw-colored fluid Fluid sent for diagnostic testing: Not requested Medications: 1% lidocaine for local anaesthesia. Complications: None. IMPRESSION: Technically successful ultrasound-guided paracentesis. Reviewed by: Hank Busch MD on 07/11/2020 3:25 PM PDT Approved by: Hank Busch MD on 07/11/2020 3:25 PM PDT Station ID: [id number]
== END 2020-07-11 08:07 | disposition home or self-care (01) ==
LOC: DI 08:06
PROVIDERS: ATTEND Internal Medicine
DX: K70.31 Alcoholic cirrhosis of liver with ascites (principal)
CPT/HCPCS: 36415; 49083; 80048; 85025; 85610; 85730

== ENCOUNTER 2020-07-14 08:11 | Outpatient (CLI) | payer MEDICAID ==
[2020-07-14 08:30] LABS: BASOPHILS # (AUTO) 0.1 10^3/uL (0.0-0.1); BASOPHILS % (AUTO) 1.5 %; EOSINOPHILS # (AUTO) 0.2 10^3/uL (0.0-0.7); EOSINOPHILS % (AUTO) 3.8 %; HCT - HEMATOCRIT 35.2 % (42.0-52.0); LYMPHOCYTES # (AUTO) 1.2 10^3/uL (1.5-3.5); MEAN CORPUSCULAR HEMOGLOBIN 32.5 pg (27.0-31.0); MEAN CORPUSCULAR HGB CONC 34.1 g/dL (32.0-36.0); MEAN CORPUSCULAR VOLUME 95.4 fL (80.0-94.0); MONOCYTES # (AUTO) 0.9 10^3/uL (0.0-1.0); MONOCYTES % (AUTO) 16.1 %; NEUTROPHILS # (AUTO) 3.1 10^3/uL (1.5-6.6); NEUTROPHILS % (AUTO) 57.1 %; PLT - PLATELET COUNT 144 10^3/uL (130-450); RED BLOOD COUNT 3.69 10^6/uL (4.70-6.10); RED CELL DISTRIBUTION WIDTH 13.7 % (12.0-15.0); WHITE BLOOD COUNT 5.5 x10^3/uL (4.8-10.8)
[2020-07-14 08:35] LABS: INR 1.1 (0.8-1.2); PT - PROTHROMBIN TIME 12.7 secs (9.9-12.6)
[2020-07-14 08:38] LABS: CALCIUM 8.9 mg/dL (8.5-10.3); POTASSIUM 4.9 mmol/L (3.5-5.0)
[2020-07-14 08:42] LABS: PARTIAL THROMBOPLASTIN TIME 30.9 secs (24.9-33.3)
--- NOTE | 2020-07-14 14:58 | Ultrasound Report ---
PROCEDURE: Abdominal Paracentesis INDICATIONS: ALCOHOLIC CIRRHOSIS OF LIVER W/ASCITES TECHNIQUE: The indications, alternatives, benefits, risks, and complications of the procedure were explained to the patient. Written informed consent was obtained and placed in the chart. The abdomen and pelvis were examined sonographically, and an appropriate site was chosen for paracentesis. The skin was pre pared and draped in the usual sterile fashion, and 1% lidocaine was infiltrated from the skin down th rough the peritoneal surface. A 19-gauge catheter-covered needle was then introduced into the perito valerie space, the catheter was advanced and the needle was withdrawn, and thereafter peritoneal fluid w as withdrawn. The catheter was then removed and a dressing was applied. The fluid was discarded if the clinician did not order diagnostic testing of the fluid. COMPARISON: None. FINDINGS: Access site: Right lower quadrant Needle: One-Step centesis catheter with introducer needle. Fluid volume and description: 7.9 L of ascites Fluid sent for diagnostic testing: Not requested Medications: 1% lidocaine for local anaesthesia. Complications: None. IMPRESSION: Successful ultrasound-guided paracentesis. Reviewed by: Bairon Real MD on 07/14/2020 2:57 PM PDT Approved by: Bairon Real MD on 07/14/2020 2:57 PM PDT Station ID: [id number]
== END 2020-07-14 08:12 | disposition home or self-care (01) ==
LOC: DI 08:11
PROVIDERS: ATTEND Internal Medicine
DX: K70.31 Alcoholic cirrhosis of liver with ascites (principal)
CPT/HCPCS: 36415; 49083; 80048; 85025; 85610; 85730

== ENCOUNTER 2020-07-17 08:37 | Outpatient (CLI) | payer MEDICAID ==
[2020-07-17 08:41] LABS: BASOPHILS # (AUTO) 0.1 10^3/uL (0.0-0.1); BASOPHILS % (AUTO) 1.5 %; EOSINOPHILS # (AUTO) 0.2 10^3/uL (0.0-0.7); EOSINOPHILS % (AUTO) 3.8 %; HCT - HEMATOCRIT 33.6 % (42.0-52.0); HGB - HEMOGLOBIN 11.8 g/dL (14.0-18.0); LYMPHOCYTES % (AUTO) 16.7 %; MEAN CORPUSCULAR HGB CONC 35.1 g/dL (32.0-36.0); MEAN CORPUSCULAR VOLUME 93.9 fL (80.0-94.0); MEAN PLATELET VOLUME 9.4 fL (7.4-11.4); MONOCYTES # (AUTO) 0.9 10^3/uL (0.0-1.0); MONOCYTES % (AUTO) 15.4 %; NEUTROPHILS # (AUTO) 3.8 10^3/uL (1.5-6.6); NEUTROPHILS % (AUTO) 62.1 %; PLT - PLATELET COUNT 133 10^3/uL (130-450); RED BLOOD COUNT 3.58 10^6/uL (4.70-6.10); RED CELL DISTRIBUTION WIDTH 13.3 % (12.0-15.0); WHITE BLOOD COUNT 6.1 x10^3/uL (4.8-10.8)
[2020-07-17 08:52] LABS: CALCIUM 9.3 mg/dL (8.5-10.3); CREATININE 1.1 mg/dL (0.6-1.2); POTASSIUM 5.2 mmol/L (3.5-5.0)
[2020-07-17 08:53] LABS: INR 1.1 (0.8-1.2); PT - PROTHROMBIN TIME 12.7 secs (9.9-12.6)
[2020-07-17 09:00] LABS: PARTIAL THROMBOPLASTIN TIME 31.2 secs (24.9-33.3)
--- NOTE | 2020-07-17 17:51 | Ultrasound Report ---
PROCEDURE: Abdominal Paracentesis INDICATIONS: ALCOHOLIC CIRRHOSIS OF LIVER W/ASCITES TECHNIQUE: The indications, alternatives, benefits, risks, and complications of the procedure were explained to the patient. Written informed consent was obtained and placed in the chart. The abdomen and pelvis were examined sonographically, and an appropriate site was chosen for paracentesis. The skin was pre pared and draped in the usual sterile fashion, and 1% lidocaine was infiltrated from the skin down th rough the peritoneal surface. A 19-gauge catheter-covered needle was then introduced into the perito valerie space, the catheter was advanced and the needle was withdrawn, and thereafter peritoneal fluid w as withdrawn. The catheter was then removed and a dressing was applied. The fluid was discarded if the clinician did not order diagnostic testing of the fluid. COMPARISON: Prior abdominal ultrasound studies for this patient. FINDINGS: Access site: Right lateral lower abdomen Needle: One-Step centesis catheter with introducer needle. Fluid volume and description: 7.4 L, mildly turbid, serous. Fluid sent for diagnostic testing: Not requested Medications: 1% lidocaine for local anaesthesia. Complications: None. IMPRESSION: Successful ultrasound-guided paracentesis. Reviewed by: Emeka Nuñez MD on 07/17/2020 5:49 PM PDT Approved by: Emeka Nuñez MD on 07/17/2020 5:49 PM PDT Station ID: [id number]
== END 2020-07-17 08:38 | disposition home or self-care (01) ==
LOC: DI 08:37
PROVIDERS: ATTEND Internal Medicine
DX: K70.31 Alcoholic cirrhosis of liver with ascites (principal)
CPT/HCPCS: 36415; 49083; 80048; 85025; 85610; 85730

== ENCOUNTER 2020-07-21 08:36 | Outpatient (CLI) | payer MEDICAID ==
[2020-07-21 08:59] LABS: BASOPHILS # (AUTO) 0.1 10^3/uL (0.0-0.1); BASOPHILS % (AUTO) 1.6 %; EOSINOPHILS # (AUTO) 0.2 10^3/uL (0.0-0.7); EOSINOPHILS % (AUTO) 4.1 %; HCT - HEMATOCRIT 34.1 % (42.0-52.0); HGB - HEMOGLOBIN 12.1 g/dL (14.0-18.0); LYMPHOCYTES % (AUTO) 17.6 %; MEAN CORPUSCULAR HEMOGLOBIN 33.1 pg (27.0-31.0); MEAN CORPUSCULAR HGB CONC 35.5 g/dL (32.0-36.0); MEAN CORPUSCULAR VOLUME 93.2 fL (80.0-94.0); MEAN PLATELET VOLUME 10.2 fL (7.4-11.4); MONOCYTES # (AUTO) 0.8 10^3/uL (0.0-1.0); MONOCYTES % (AUTO) 14.9 %; NEUTROPHILS # (AUTO) 3.4 10^3/uL (1.5-6.6); NEUTROPHILS % (AUTO) 61.3 %; PLT - PLATELET COUNT 144 10^3/uL (130-450); RED BLOOD COUNT 3.66 10^6/uL (4.70-6.10); RED CELL DISTRIBUTION WIDTH 13.2 % (12.0-15.0); WHITE BLOOD COUNT 5.6 x10^3/uL (4.8-10.8)
[2020-07-21 09:28] LABS: INR 1.1 (0.8-1.2); PT - PROTHROMBIN TIME 12.6 secs (9.9-12.6)
[2020-07-21 09:36] LABS: PARTIAL THROMBOPLASTIN TIME 31.7 secs (24.9-33.3)
--- NOTE | 2020-07-21 13:49 | Ultrasound Report ---
PROCEDURE: Abdominal Paracentesis INDICATIONS: ALCOHOLIC CIRRHOSIS OF LIVER W/ASCITES TECHNIQUE: The indications, alternatives, benefits, risks, and complications of the procedure were explained to the patient. Written informed consent was obtained and placed in the chart. The abdomen and pelvis were examined sonographically, and an appropriate site was chosen for paracentesis. The skin was pre pared and draped in the usual sterile fashion, and 1% lidocaine was infiltrated from the skin down th rough the peritoneal surface. A 19-gauge catheter-covered needle was then introduced into the perito valerie space, the catheter was advanced and the needle was withdrawn, and thereafter peritoneal fluid w as withdrawn. The catheter was then removed and a dressing was applied. The fluid was discarded if the clinician did not order diagnostic testing of the fluid. COMPARISON: . Guided paracentesis, 07/17/2020. FINDINGS: Access site: Right lower abdomen. Needle: One-Step centesis catheter with introducer needle. Fluid volume and description: 8.3 L. Cloudy Fluid sent for diagnostic testing: No. Medications: 1% lidocaine for local anaesthesia. Complications: None. IMPRESSION: Successful ultrasound-guided paracentesis. Reviewed by: Maddi Mata MD on 07/21/2020 1:47 PM PDT Approved by: Maddi Mata MD on 07/21/2020 1:47 PM PDT Station ID: [id number]
== END 2020-07-21 08:37 | disposition home or self-care (01) ==
LOC: DI 08:36
PROVIDERS: ATTEND Internal Medicine
DX: Z01.812 Encounter for preprocedural laboratory examination (principal); K70.31 Alcoholic cirrhosis of liver with ascites; Z20.822 Contact with and (suspected) exposure to COVID-19
CPT/HCPCS: 36415; 49083; 80048; 85025; 85610; 85730

== ENCOUNTER 2020-07-25 08:00 | Outpatient (CLI) | payer MEDICAID ==
[2020-07-25 08:55] LABS: BASOPHILS # (AUTO) 0.1 10^3/uL (0.0-0.1); BASOPHILS % (AUTO) 1.2 %; EOSINOPHILS # (AUTO) 0.2 10^3/uL (0.0-0.7); EOSINOPHILS % (AUTO) 2.6 %; HCT - HEMATOCRIT 32.7 % (42.0-52.0); HGB - HEMOGLOBIN 11.4 g/dL (14.0-18.0); LYMPHOCYTES % (AUTO) 15.6 %; MEAN CORPUSCULAR HEMOGLOBIN 32.6 pg (27.0-31.0); MEAN CORPUSCULAR HGB CONC 34.9 g/dL (32.0-36.0); MEAN CORPUSCULAR VOLUME 93.4 fL (80.0-94.0); MEAN PLATELET VOLUME 10.1 fL (7.4-11.4); MONOCYTES # (AUTO) 0.9 10^3/uL (0.0-1.0); MONOCYTES % (AUTO) 13.7 %; NEUTROPHILS # (AUTO) 4.3 10^3/uL (1.5-6.6); NEUTROPHILS % (AUTO) 66.7 %; PLT - PLATELET COUNT 133 10^3/uL (130-450); RED CELL DISTRIBUTION WIDTH 13.3 % (12.0-15.0); WHITE BLOOD COUNT 6.5 x10^3/uL (4.8-10.8)
[2020-07-25 08:57] LABS: CALCIUM 8.7 mg/dL (8.5-10.3); CREATININE 1.1 mg/dL (0.6-1.2); INR 1.2 (0.8-1.2); POTASSIUM 4.4 mmol/L (3.5-5.0); PT - PROTHROMBIN TIME 12.9 secs (9.9-12.6)
[2020-07-25 09:04] LABS: PARTIAL THROMBOPLASTIN TIME 31.2 secs (24.9-33.3)
--- NOTE | 2020-07-27 15:15 | DEXA Report ---
PROCEDURE: Dexa Spine and/or Hip INDICATIONS: LIVER TRANSPLANT EVAL TECHNIQUE: Dual energy x-ray absorptiometry (DXA) was performed on a [employer] System. Regions measur ed are the AP Spine, femoral neck, and if needed forearm. COMPARISON: None. FINDINGS: Lumbar Spine: Bone Mineral Density 1.747 g/cm/cm,T score 4.4, normal Left Hip: Bone Mineral Density 1.433 g/cm/cm,T score 2.0, normal Left Femoral Neck: Bone Mineral Density 1.422 g/cm/cm, T score 2.7, normal (T score greater or equal to -1.0: NORMAL) (T score from -1.1 to -2.4: OSTEOPENIA) (T score less than or equal to -2.5 to: OSTEOPOROSIS) Impression: Normal bone mineral density. Patients with diagnosis of osteoporosis or osteopenia should have regular bone mineral density assess ment. For those eligible for Medicare, routine testing is allowed once every 2 years. Testing frequ ency can be increased for patients who have rapidly progressing disease or for those who are receivin g medical therapy to restore bone mass. Reviewed by: Joanne Cabral MD on 07/27/2020 3:13 PM PDT Approved by: Joanne Cabral MD on 07/27/2020 3:13 PM PDT Station ID: [id number]
== END 2020-07-25 23:59 ==
LOC: DI 08:00 → LAB 08:35 → DI 23:59
PROVIDERS: ATTEND Nurse Practitioner Family
DX: Z01.818 Encounter for other preprocedural examination (principal); K70.31 Alcoholic cirrhosis of liver with ascites
CPT/HCPCS: 36415; 80048; 85025; 85610; 85730

== ENCOUNTER 2020-07-25 08:44 | Outpatient (CLI) | payer MEDICAID ==
[2020-07-25] MEDS ORDERED: BUFFERED LIDOCAINE 10 ML SYRINGE IU ONE (11:46)
--- NOTE | 2020-07-25 14:25 | Ultrasound Report ---
PROCEDURE: Abdominal Paracentesis INDICATIONS: ALCOHOLIC CIRRHOSIS OF LIVER W/ASCITES TECHNIQUE: The indications, alternatives, benefits, risks, and complications of the procedure were explained to the patient. Written informed consent was obtained and placed in the chart. The abdomen and pelvis were examined sonographically, and an appropriate site was chosen for paracentesis. The skin was pre pared and draped in the usual sterile fashion, and 1% lidocaine was infiltrated from the skin down th rough the peritoneal surface. A 19-gauge catheter-covered needle was then introduced into the perito valerie space, the catheter was advanced and the needle was withdrawn, and thereafter peritoneal fluid w as withdrawn. The catheter was then removed and a dressing was applied. The fluid was discarded if the clinician did not order diagnostic testing of the fluid. COMPARISON: None FINDINGS: Access site: Left lower quadrant Needle: One-Step centesis catheter with introducer needle. Fluid volume and description: 8.4L pink tinged. Fluid sent for diagnostic testing: None Medications: 1% lidocaine for local anaesthesia. Complications: None. IMPRESSION: Successful ultrasound-guided paracentesis. Reviewed by: Joanne Cabral MD on 07/25/2020 1:03 PM PDT Approved by: Joanne Cabral MD on 07/25/2020 1:03 PM PDT Station ID: [id number]
== END 2020-07-25 08:45 | disposition home or self-care (01) ==
LOC: DI 08:44
PROVIDERS: ATTEND Internal Medicine
DX: K70.31 Alcoholic cirrhosis of liver with ascites (principal)
CPT/HCPCS: 49083

== ENCOUNTER 2020-07-28 08:59 | Outpatient (CLI) | payer MEDICAID ==
[2020-07-28 09:01] LABS: BASOPHILS # (AUTO) 0.1 10^3/uL (0.0-0.1); BASOPHILS % (AUTO) 1.6 %; EOSINOPHILS # (AUTO) 0.3 10^3/uL (0.0-0.7); EOSINOPHILS % (AUTO) 4.2 %; HCT - HEMATOCRIT 33.2 % (42.0-52.0); HGB - HEMOGLOBIN 11.8 g/dL (14.0-18.0); LYMPHOCYTES # (AUTO) 1.1 10^3/uL (1.5-3.5); LYMPHOCYTES % (AUTO) 17.3 %; MEAN CORPUSCULAR HGB CONC 35.5 g/dL (32.0-36.0); MEAN CORPUSCULAR VOLUME 92.7 fL (80.0-94.0); MEAN PLATELET VOLUME 9.4 fL (7.4-11.4); MONOCYTES # (AUTO) 0.8 10^3/uL (0.0-1.0); MONOCYTES % (AUTO) 12.5 %; NEUTROPHILS % (AUTO) 63.9 %; PLT - PLATELET COUNT 135 10^3/uL (130-450); RED BLOOD COUNT 3.58 10^6/uL (4.70-6.10); RED CELL DISTRIBUTION WIDTH 13.2 % (12.0-15.0); WHITE BLOOD COUNT 6.3 x10^3/uL (4.8-10.8)
[2020-07-28 09:17] LABS: CALCIUM 8.8 mg/dL (8.5-10.3); CREATININE 1.2 mg/dL (0.6-1.2); POTASSIUM 5.1 mmol/L (3.5-5.0)
[2020-07-28 09:27] LABS: INR 1.2 (0.8-1.2); PT - PROTHROMBIN TIME 13.5 secs (9.9-12.6)
[2020-07-28 09:34] LABS: PARTIAL THROMBOPLASTIN TIME 31.8 secs (24.9-33.3)
--- NOTE | 2020-07-28 13:55 | Ultrasound Report ---
PROCEDURE: Abdominal Paracentesis INDICATIONS: ALCOHOLIC CIRRHOSIS OF LIVER W/ASCITES TECHNIQUE: The indications, alternatives, benefits, risks, and complications of the procedure were explained to the patient. Written informed consent was obtained and placed in the chart. The abdomen and pelvis were examined sonographically, and an appropriate site was chosen for paracentesis. The skin was pre pared and draped in the usual sterile fashion, and 1% lidocaine was infiltrated from the skin down th rough the peritoneal surface. A 19-gauge catheter-covered needle was then introduced into the perito valerie space, the catheter was advanced and the needle was withdrawn, and thereafter peritoneal fluid w as withdrawn. The catheter was then removed and a dressing was applied. The fluid was discarded if the clinician did not order diagnostic testing of the fluid. COMPARISON: None. FINDINGS: Access site: Right lower quadrant Needle: One-Step centesis catheter with introducer needle. Fluid volume and description: 9.6 L of ascites Fluid sent for diagnostic testing: Not requested Medications: 1% lidocaine for local anaesthesia. Complications: None. IMPRESSION: Successful ultrasound-guided paracentesis. Reviewed by: Bairon Real MD on 07/28/2020 1:54 PM PDT Approved by: Bairon Real MD on 07/28/2020 1:54 PM PDT Station ID: [id number]
== END 2020-07-28 09:00 | disposition home or self-care (01) ==
LOC: DI 08:59
PROVIDERS: ATTEND Internal Medicine
DX: K70.31 Alcoholic cirrhosis of liver with ascites (principal)
CPT/HCPCS: 36415; 49083; 80048; 85025; 85610; 85730

== ENCOUNTER 2020-08-01 09:09 | Outpatient (CLI) | payer MEDICAID ==
[2020-08-01 09:09] LABS: BASOPHILS # (AUTO) 0.1 10^3/uL (0.0-0.1); BASOPHILS % (AUTO) 2.1 %; EOSINOPHILS # (AUTO) 0.2 10^3/uL (0.0-0.7); EOSINOPHILS % (AUTO) 3.5 %; HCT - HEMATOCRIT 33.4 % (42.0-52.0); HGB - HEMOGLOBIN 11.9 g/dL (14.0-18.0); LYMPHOCYTES % (AUTO) 15.7 %; MEAN CORPUSCULAR HEMOGLOBIN 33.2 pg (27.0-31.0); MEAN CORPUSCULAR HGB CONC 35.6 g/dL (32.0-36.0); MEAN CORPUSCULAR VOLUME 93.3 fL (80.0-94.0); MEAN PLATELET VOLUME 10.2 fL (7.4-11.4); MONOCYTES # (AUTO) 0.9 10^3/uL (0.0-1.0); MONOCYTES % (AUTO) 13.9 %; NEUTROPHILS # (AUTO) 4.2 10^3/uL (1.5-6.6); NEUTROPHILS % (AUTO) 64.2 %; PLT - PLATELET COUNT 147 10^3/uL (130-450); RED BLOOD COUNT 3.58 10^6/uL (4.70-6.10); RED CELL DISTRIBUTION WIDTH 13.4 % (12.0-15.0); WHITE BLOOD COUNT 6.6 x10^3/uL (4.8-10.8)
[2020-08-01 09:43] LABS: INR 1.2 (0.8-1.2); PARTIAL THROMBOPLASTIN TIME 30.3 secs (24.9-33.3); PT - PROTHROMBIN TIME 13.3 secs (9.9-12.6)
[2020-08-01 10:14] LABS: CREATININE 1.3 mg/dL (0.6-1.2); POTASSIUM 5.7 mmol/L (3.5-5.0)
--- NOTE | 2020-08-01 11:44 | Ultrasound Report ---
PROCEDURE: Abdominal Paracentesis INDICATIONS: ALCOHOLIC CIRRHOSIS OF LIVER W/ASCITES TECHNIQUE: The indications, alternatives, benefits, risks, and complications of the procedure were explained to the patient. Written informed consent was obtained and placed in the chart. The abdomen and pelvis were examined sonographically, and an appropriate site was chosen for paracentesis. The skin was pre pared and draped in the usual sterile fashion, and 1% lidocaine was infiltrated from the skin down th rough the peritoneal surface. A 19-gauge catheter-covered needle was then introduced into the perito valerie space, the catheter was advanced and the needle was withdrawn, and thereafter peritoneal fluid w as withdrawn. The catheter was then removed and a dressing was applied. The fluid was discarded if the clinician did not order diagnostic testing of the fluid. COMPARISON: None. FINDINGS: Access site: Right lower quadrant Needle: One-Step centesis catheter with introducer needle. Fluid volume and description: 10.3 L of ascites. Fluid sent for diagnostic testing: Not requested Medications: 1% lidocaine for local anaesthesia. Complications: None. IMPRESSION: Successful ultrasound-guided paracentesis. Reviewed by: Bairon Real MD on 08/01/2020 11:42 AM PDT Approved by: Bairon Real MD on 08/01/2020 11:42 AM PDT Station ID: [id number]
== END 2020-08-01 09:10 | disposition home or self-care (01) ==
LOC: DI 09:09
PROVIDERS: ATTEND Internal Medicine
DX: K70.31 Alcoholic cirrhosis of liver with ascites (principal)
CPT/HCPCS: 36415; 49083; 80048; 85025; 85610; 85730

== ENCOUNTER 2020-08-04 10:14 | Outpatient (CLI) | payer MEDICAID ==
[2020-08-04 10:44] LABS: BASOPHILS # (AUTO) 0.2 10^3/uL (0.0-0.1); EOSINOPHILS # (AUTO) 0.3 10^3/uL (0.0-0.7); EOSINOPHILS % (AUTO) 3.3 %; HCT - HEMATOCRIT 34.7 % (42.0-52.0); HGB - HEMOGLOBIN 12.2 g/dL (14.0-18.0); LYMPHOCYTES # (AUTO) 1.3 10^3/uL (1.5-3.5); LYMPHOCYTES % (AUTO) 17.2 %; MEAN CORPUSCULAR HEMOGLOBIN 32.5 pg (27.0-31.0); MEAN CORPUSCULAR HGB CONC 35.2 g/dL (32.0-36.0); MEAN CORPUSCULAR VOLUME 92.5 fL (80.0-94.0); MEAN PLATELET VOLUME 9.8 fL (7.4-11.4); MONOCYTES # (AUTO) 1.1 10^3/uL (0.0-1.0); MONOCYTES % (AUTO) 14.7 %; NEUTROPHILS # (AUTO) 4.7 10^3/uL (1.5-6.6); NEUTROPHILS % (AUTO) 62.3 %; PLT - PLATELET COUNT 151 10^3/uL (130-450); RED BLOOD COUNT 3.75 10^6/uL (4.70-6.10); RED CELL DISTRIBUTION WIDTH 13.4 % (12.0-15.0); WHITE BLOOD COUNT 7.6 x10^3/uL (4.8-10.8)
[2020-08-04 10:54] LABS: INR 1.1 (0.8-1.2); PT - PROTHROMBIN TIME 12.5 secs (9.9-12.6)
[2020-08-04 11:22] LABS: CALCIUM 9.3 mg/dL (8.5-10.3); CREATININE 1.4 mg/dL (0.6-1.2)
[2020-08-04 11:28] LABS: POTASSIUM 6.8 mmol/L (3.5-5.0)
--- NOTE | 2020-08-04 13:36 | Ultrasound Report ---
PROCEDURE: Abdominal Paracentesis INDICATIONS: ALCOHOLIC CIRRHOSIS OF LIVER W/ASCITES TECHNIQUE: The indications, alternatives, benefits, risks, and complications of the procedure were explained to the patient. Written informed consent was obtained and placed in the chart. The abdomen and pelvis were examined sonographically, and an appropriate site was chosen for paracentesis. The skin was pre pared and draped in the usual sterile fashion, and 1% lidocaine was infiltrated from the skin down th rough the peritoneal surface. A 19-gauge catheter-covered needle was then introduced into the perito valerie space, the catheter was advanced and the needle was withdrawn, and thereafter peritoneal fluid w as withdrawn. The catheter was then removed and a dressing was applied. The fluid was discarded if the clinician did not order diagnostic testing of the fluid. COMPARISON: 06/01/2020 FINDINGS: Access site: Right lower quadrant Needle: One-Step centesis catheter with introducer needle. Fluid volume and description: 9.5 L of cloudy pink ascites Fluid sent for diagnostic testing: No Medications: 1% lidocaine for local anaesthesia. Complications: None. IMPRESSION: Successful ultrasound-guided paracentesis. Reviewed by: Carlos Orellana MD on 08/04/2020 1:35 PM PDT Approved by: Carlos Orellana MD on 08/04/2020 1:35 PM PDT Station ID: [id number]
== END 2020-08-04 10:15 | disposition home or self-care (01) ==
LOC: DI 10:14
PROVIDERS: ATTEND Internal Medicine
DX: K70.31 Alcoholic cirrhosis of liver with ascites (principal)
CPT/HCPCS: 36415; 49083; 80048; 85025; 85610

== ENCOUNTER 2020-08-07 08:05 | Outpatient (CLI) | payer MEDICAID | END 2020-08-07 08:06 | disposition home or self-care (01) | LOC: LAB 08:05 | PROVIDERS: ATTEND Internal Medicine | DX: Z01.812 Encounter for preprocedural laboratory examination (principal); Z20.822 Contact with and (suspected) exposure to COVID-19 ==

== ENCOUNTER 2020-08-08 08:19 | Outpatient (CLI) | payer MEDICAID ==
[2020-08-08 08:41] LABS: BASOPHILS # (AUTO) 0.1 10^3/uL (0.0-0.1); BASOPHILS % (AUTO) 1.6 %; EOSINOPHILS # (AUTO) 0.3 10^3/uL (0.0-0.7); EOSINOPHILS % (AUTO) 4.5 %; HCT - HEMATOCRIT 33.9 % (42.0-52.0); LYMPHOCYTES # (AUTO) 0.9 10^3/uL (1.5-3.5); LYMPHOCYTES % (AUTO) 13.9 %; MEAN CORPUSCULAR HEMOGLOBIN 32.8 pg (27.0-31.0); MEAN CORPUSCULAR HGB CONC 35.4 g/dL (32.0-36.0); MEAN CORPUSCULAR VOLUME 92.6 fL (80.0-94.0); MEAN PLATELET VOLUME 9.8 fL (7.4-11.4); MONOCYTES % (AUTO) 16.1 %; NEUTROPHILS % (AUTO) 63.4 %; PLT - PLATELET COUNT 143 10^3/uL (130-450); RED BLOOD COUNT 3.66 10^6/uL (4.70-6.10); RED CELL DISTRIBUTION WIDTH 13.2 % (12.0-15.0); WHITE BLOOD COUNT 6.3 x10^3/uL (4.8-10.8)
[2020-08-08 08:46] LABS: INR 1.2 (0.8-1.2); PT - PROTHROMBIN TIME 12.8 secs (9.9-12.6)
[2020-08-08 08:49] LABS: CALCIUM 8.6 mg/dL (8.5-10.3); CREATININE 1.2 mg/dL (0.6-1.2); POTASSIUM 5.4 mmol/L (3.5-5.0)
[2020-08-08 08:53] LABS: PARTIAL THROMBOPLASTIN TIME 30.4 secs (24.9-33.3)
--- NOTE | 2020-08-08 17:20 | Ultrasound Report ---
PROCEDURE: Abdominal Paracentesis INDICATIONS: ALCOHOLIC CIRRHOSIS OF LIVER W/ASCITES TECHNIQUE: The indications, alternatives, benefits, risks, and complications of the procedure were explained to the patient. Written informed consent was obtained and placed in the chart. The abdomen and pelvis were examined sonographically, and an appropriate site was chosen for paracentesis. The skin was pre pared and draped in the usual sterile fashion, and 1% lidocaine was infiltrated from the skin down th rough the peritoneal surface. A 19-gauge catheter-covered needle was then introduced into the perito valerie space, the catheter was advanced and the needle was withdrawn, and thereafter peritoneal fluid w as withdrawn. The catheter was then removed and a dressing was applied. The fluid was discarded if the clinician did not order diagnostic testing of the fluid. COMPARISON: 08/04/2020 FINDINGS: Access site: Right lower quadrant Needle: One-Step centesis catheter with introducer needle. Fluid volume and description: 10.7 L of pink change fluid. Fluid sent for diagnostic testing: Ordered. Medications: 1% lidocaine for local anaesthesia. Complications: None. IMPRESSION: Successful ultrasound-guided paracentesis. Reviewed by: Jose Maria Martino MD on 08/08/2020 5:18 PM PDT Approved by: Jose Maria Martino MD on 08/08/2020 5:18 PM PDT Station ID: [id number]
== END 2020-08-08 08:20 | disposition home or self-care (01) ==
LOC: DI 08:19
PROVIDERS: ATTEND Internal Medicine
DX: K70.31 Alcoholic cirrhosis of liver with ascites (principal)
CPT/HCPCS: 36415; 49083; 80048; 85025; 85610; 85730

== ENCOUNTER 2020-08-15 08:04 | Outpatient (CLI) | payer MEDICAID ==
[2020-08-15 08:21] LABS: BASOPHILS # (AUTO) 0.1 10^3/uL (0.0-0.1); BASOPHILS % (AUTO) 1.4 %; EOSINOPHILS # (AUTO) 0.2 10^3/uL (0.0-0.7); EOSINOPHILS % (AUTO) 4.1 %; HCT - HEMATOCRIT 33.3 % (42.0-52.0); HGB - HEMOGLOBIN 11.8 g/dL (14.0-18.0); LYMPHOCYTES # (AUTO) 1.1 10^3/uL (1.5-3.5); LYMPHOCYTES % (AUTO) 18.1 %; MEAN CORPUSCULAR HEMOGLOBIN 33.1 pg (27.0-31.0); MEAN CORPUSCULAR HGB CONC 35.4 g/dL (32.0-36.0); MEAN CORPUSCULAR VOLUME 93.3 fL (80.0-94.0); MEAN PLATELET VOLUME 9.7 fL (7.4-11.4); MONOCYTES # (AUTO) 0.9 10^3/uL (0.0-1.0); MONOCYTES % (AUTO) 15.1 %; NEUTROPHILS # (AUTO) 3.5 10^3/uL (1.5-6.6); PLT - PLATELET COUNT 129 10^3/uL (130-450); RED BLOOD COUNT 3.57 10^6/uL (4.70-6.10); RED CELL DISTRIBUTION WIDTH 13.2 % (12.0-15.0); WHITE BLOOD COUNT 5.8 x10^3/uL (4.8-10.8)
[2020-08-15 08:31] LABS: CALCIUM 8.8 mg/dL (8.5-10.3); CREATININE 1.4 mg/dL (0.6-1.2); POTASSIUM 4.5 mmol/L (3.5-5.0)
[2020-08-15 09:06] LABS: INR 1.1 (0.8-1.2); PT - PROTHROMBIN TIME 12.6 secs (9.9-12.6)
[2020-08-15 09:15] LABS: PARTIAL THROMBOPLASTIN TIME 30.4 secs (24.9-33.3)
--- NOTE | 2020-08-15 15:40 | Ultrasound Report ---
PROCEDURE: Abdominal Paracentesis INDICATIONS: ALCOHOLIC CIRRHOSIS OF LIVER W/ASCITES TECHNIQUE: The indications, alternatives, benefits, risks, and complications of the procedure were explained to the patient. Written informed consent was obtained and placed in the chart. The abdomen and pelvis were examined sonographically, and an appropriate site was chosen for paracentesis. The skin was pre pared and draped in the usual sterile fashion, and 1% lidocaine was infiltrated from the skin down th rough the peritoneal surface. A 19-gauge catheter-covered needle was then introduced into the perito valerie space, the catheter was advanced and the needle was withdrawn, and thereafter peritoneal fluid w as withdrawn. The catheter was then removed and a dressing was applied. The fluid was discarded if the clinician did not order diagnostic testing of the fluid. COMPARISON: None FINDINGS: Access site: Right lower quadrant Needle: One-Step centesis catheter with introducer needle. Fluid volume and description: 8 L pink Fluid sent for diagnostic testing: No Medications: 1% lidocaine for local anaesthesia. Complications: None. IMPRESSION: Successful ultrasound-guided paracentesis. Reviewed by: Joanne Cabral MD on 08/15/2020 3:39 PM PDT Approved by: Joanne Cabral MD on 08/15/2020 3:39 PM PDT Station ID: [id number]
== END 2020-08-15 08:05 | disposition home or self-care (01) ==
LOC: DI 08:04
PROVIDERS: ATTEND Internal Medicine
DX: K70.31 Alcoholic cirrhosis of liver with ascites (principal)
CPT/HCPCS: 36415; 49083; 80048; 85025; 85610; 85730

== ENCOUNTER 2020-08-18 07:49 | Outpatient (CLI) | payer MEDICAID ==
[2020-08-18 08:08] LABS: BASOPHILS # (AUTO) 0.1 10^3/uL (0.0-0.1); BASOPHILS % (AUTO) 1.4 %; EOSINOPHILS # (AUTO) 0.3 10^3/uL (0.0-0.7); EOSINOPHILS % (AUTO) 3.6 %; HCT - HEMATOCRIT 33.6 % (42.0-52.0); HGB - HEMOGLOBIN 12.2 g/dL (14.0-18.0); LYMPHOCYTES # (AUTO) 0.8 10^3/uL (1.5-3.5); LYMPHOCYTES % (AUTO) 12.2 %; MEAN CORPUSCULAR HEMOGLOBIN 33.2 pg (27.0-31.0); MEAN CORPUSCULAR HGB CONC 36.3 g/dL (32.0-36.0); MEAN CORPUSCULAR VOLUME 91.3 fL (80.0-94.0); MEAN PLATELET VOLUME 9.9 fL (7.4-11.4); MONOCYTES # (AUTO) 0.9 10^3/uL (0.0-1.0); MONOCYTES % (AUTO) 13.3 %; NEUTROPHILS # (AUTO) 4.8 10^3/uL (1.5-6.6); NEUTROPHILS % (AUTO) 69.1 %; PLT - PLATELET COUNT 144 10^3/uL (130-450); RED BLOOD COUNT 3.68 10^6/uL (4.70-6.10); WHITE BLOOD COUNT 6.9 x10^3/uL (4.8-10.8)
[2020-08-18 08:13] LABS: INR 1.2 (0.8-1.2)
[2020-08-18 08:18] LABS: CALCIUM 8.4 mg/dL (8.5-10.3); CREATININE 1.3 mg/dL (0.6-1.2); POTASSIUM 4.3 mmol/L (3.5-5.0)
[2020-08-18 08:21] LABS: PARTIAL THROMBOPLASTIN TIME 30.5 secs (24.9-33.3)
--- NOTE | 2020-08-18 14:34 | Ultrasound Report ---
PROCEDURE: Abdominal Paracentesis INDICATIONS: ALCOHOLIC CIRRHOSIS OF LIVER W/ASCITES TECHNIQUE: The indications, alternatives, benefits, risks, and complications of the procedure were explained to the patient. Written informed consent was obtained and placed in the chart. The abdomen and pelvis were examined sonographically, and an appropriate site was chosen for paracentesis. The skin was pre pared and draped in the usual sterile fashion, and 1% lidocaine was infiltrated from the skin down th rough the peritoneal surface. A 19-gauge catheter-covered needle was then introduced into the perito valerie space, the catheter was advanced and the needle was withdrawn, and thereafter peritoneal fluid w as withdrawn. The catheter was then removed and a dressing was applied. The fluid was discarded if the clinician did not order diagnostic testing of the fluid. COMPARISON: None FINDINGS: Access site: Right lower quadrant Needle: One-Step centesis catheter with introducer needle. Fluid volume and description: 9 L of pinkish, cloudy fluid Fluid sent for diagnostic testing: Not requested Medications: 1% lidocaine for local anaesthesia. Complications: None. IMPRESSION: Successful ultrasound-guided paracentesis. No immediate complications. Reviewed by: Desiree Gross MD, PhD on 08/18/2020 2:33 PM PDT Approved by: Desiree Gross MD, PhD on 08/18/2020 2:33 PM PDT Station ID: [id number]
== END 2020-08-18 07:50 | disposition home or self-care (01) ==
LOC: DI 07:49
PROVIDERS: ATTEND Internal Medicine
DX: K70.31 Alcoholic cirrhosis of liver with ascites (principal)
CPT/HCPCS: 36415; 49083; 80048; 85025; 85610; 85730

== ENCOUNTER 2020-08-22 08:17 | Outpatient (CLI) | payer MEDICAID ==
[2020-08-22 08:37] LABS: BASOPHILS # (AUTO) 0.1 10^3/uL (0.0-0.1); BASOPHILS % (AUTO) 1.2 %; EOSINOPHILS # (AUTO) 0.3 10^3/uL (0.0-0.7); EOSINOPHILS % (AUTO) 3.9 %; HCT - HEMATOCRIT 34.1 % (42.0-52.0); HGB - HEMOGLOBIN 11.9 g/dL (14.0-18.0); LYMPHOCYTES % (AUTO) 15.7 %; MEAN CORPUSCULAR HEMOGLOBIN 32.2 pg (27.0-31.0); MEAN CORPUSCULAR HGB CONC 34.9 g/dL (32.0-36.0); MEAN CORPUSCULAR VOLUME 92.2 fL (80.0-94.0); MEAN PLATELET VOLUME 9.5 fL (7.4-11.4); MONOCYTES # (AUTO) 1.1 10^3/uL (0.0-1.0); MONOCYTES % (AUTO) 16.2 %; NEUTROPHILS # (AUTO) 4.1 10^3/uL (1.5-6.6); NEUTROPHILS % (AUTO) 62.4 %; PLT - PLATELET COUNT 129 10^3/uL (130-450); WHITE BLOOD COUNT 6.6 x10^3/uL (4.8-10.8)
[2020-08-22 08:46] LABS: INR 1.1 (0.8-1.2); PT - PROTHROMBIN TIME 12.7 secs (9.9-12.6)
[2020-08-22 08:48] LABS: CALCIUM 8.9 mg/dL (8.5-10.3); CREATININE 1.7 mg/dL (0.6-1.2); POTASSIUM 4.8 mmol/L (3.5-5.0)
[2020-08-22 08:53] LABS: PARTIAL THROMBOPLASTIN TIME 30.8 secs (24.9-33.3)
[2020-08-22 09:22] LABS: ESTIMATED AVERAGE GLUCOSE 229 mg/dL (70-100); HEMOGLOBIN A1c% 9.6 % (4.27-6.07)
--- NOTE | 2020-08-22 11:12 | Ultrasound Report ---
PROCEDURE: Abdominal Paracentesis INDICATIONS: ALCOHOLIC CIRRHOSIS OF LIVER W/ASCITES TECHNIQUE: The indications, alternatives, benefits, risks, and complications of the procedure were explained to the patient. Written informed consent was obtained and placed in the chart. The abdomen and pelvis were examined sonographically, and an appropriate site was chosen for paracentesis. The skin was pre pared and draped in the usual sterile fashion, and 1% lidocaine was infiltrated from the skin down th rough the peritoneal surface. A 19-gauge catheter-covered needle was then introduced into the perito valerie space, the catheter was advanced and the needle was withdrawn, and thereafter peritoneal fluid w as withdrawn. The catheter was then removed and a dressing was applied. The fluid was discarded if the clinician did not order diagnostic testing of the fluid. FINDINGS: Access site: Right lower quadrant Needle: One-Step centesis catheter with introducer needle. Fluid volume and description: 7.8L, serous Fluid sent for diagnostic testing: The request Medications: 1% lidocaine for local anaesthesia. Complications: None. IMPRESSION: Technically successful ultrasound-guided paracentesis. Reviewed by: Hank Busch MD on 08/22/2020 11:10 AM PDT Approved by: Hank Busch MD on 08/22/2020 11:10 AM PDT Station ID: [id number]
== END 2020-08-22 08:18 | disposition home or self-care (01) ==
LOC: DI 08:17
PROVIDERS: ATTEND Internal Medicine
DX: K70.31 Alcoholic cirrhosis of liver with ascites (principal); E11.40 Type 2 diabetes mellitus with diabetic neuropathy, unspecified
CPT/HCPCS: 36415; 49083; 80048; 83036; 85025; 85610; 85730

== ENCOUNTER 2020-08-25 08:25 | Outpatient (CLI) | payer MEDICAID ==
[2020-08-25 08:44] LABS: BASOPHILS # (AUTO) 0.1 10^3/uL (0.0-0.1); BASOPHILS % (AUTO) 1.2 %; EOSINOPHILS # (AUTO) 0.3 10^3/uL (0.0-0.7); EOSINOPHILS % (AUTO) 3.5 %; HCT - HEMATOCRIT 33.5 % (42.0-52.0); LYMPHOCYTES # (AUTO) 1.1 10^3/uL (1.5-3.5); LYMPHOCYTES % (AUTO) 14.2 %; MEAN CORPUSCULAR HEMOGLOBIN 32.9 pg (27.0-31.0); MEAN CORPUSCULAR HGB CONC 35.8 g/dL (32.0-36.0); MEAN CORPUSCULAR VOLUME 91.8 fL (80.0-94.0); MEAN PLATELET VOLUME 9.9 fL (7.4-11.4); MONOCYTES # (AUTO) 1.1 10^3/uL (0.0-1.0); MONOCYTES % (AUTO) 14.7 %; NEUTROPHILS # (AUTO) 4.9 10^3/uL (1.5-6.6); NEUTROPHILS % (AUTO) 65.9 %; PLT - PLATELET COUNT 159 10^3/uL (130-450); RED BLOOD COUNT 3.65 10^6/uL (4.70-6.10); RED CELL DISTRIBUTION WIDTH 12.9 % (12.0-15.0); WHITE BLOOD COUNT 7.5 x10^3/uL (4.8-10.8)
[2020-08-25 08:56] LABS: CALCIUM 8.7 mg/dL (8.5-10.3); CREATININE 1.7 mg/dL (0.6-1.2); POTASSIUM 5.1 mmol/L (3.5-5.0)
[2020-08-25 08:58] LABS: INR 1.3 (0.8-1.2); PT - PROTHROMBIN TIME 13.9 secs (9.9-12.6)
--- NOTE | 2020-08-25 11:54 | Ultrasound Report ---
PROCEDURE: Abdominal Paracentesis INDICATIONS: ALCOHOLIC CIRRHOSIS OF LIVER W/ASCITES TECHNIQUE: The indications, alternatives, benefits, risks, and complications of the procedure were explained to the patient. Written informed consent was obtained and placed in the chart. The abdomen and pelvis were examined sonographically, and an appropriate site was chosen for paracentesis. The skin was pre pared and draped in the usual sterile fashion, and 1% lidocaine was infiltrated from the skin down th rough the peritoneal surface. A 19-gauge catheter-covered needle was then introduced into the perito valerie space, the catheter was advanced and the needle was withdrawn, and thereafter peritoneal fluid w as withdrawn. The catheter was then removed and a dressing was applied. The fluid was discarded if the clinician did not order diagnostic testing of the fluid. COMPARISON: 08/22/2020, 08/18/2020, 08/15/2020. FINDINGS: Access site: Right quadrant abdomen. Needle: One-Step centesis catheter with introducer needle. Fluid volume and description: 8.7 L of pink-tinged fluid. Fluid sent for diagnostic testing: None Medications: 1% lidocaine for local anaesthesia. Complications: None. IMPRESSION: Successful ultrasound-guided paracentesis. Reviewed by: Tyler Pelayo MD on 08/25/2020 11:53 AM PDT Approved by: Tyler Pelayo MD on 08/25/2020 11:53 AM PDT Station ID: [id number]
== END 2020-08-25 08:26 | disposition home or self-care (01) ==
LOC: DI 08:25
PROVIDERS: ATTEND Internal Medicine
DX: K70.31 Alcoholic cirrhosis of liver with ascites (principal)
CPT/HCPCS: 36415; 49083; 80048; 85025; 85610; 85730

== ENCOUNTER 2020-08-25 12:17 | Inpatient (IN) | payer MEDICAID ==
[2020-08-25 13:00] LABS: BASOPHILS # (AUTO) 0.1 10^3/uL (0.0-0.1); BASOPHILS % (AUTO) 1.3 %; EOSINOPHILS # (AUTO) 0.2 10^3/uL (0.0-0.7); EOSINOPHILS % (AUTO) 3.3 %; LYMPHOCYTES # (AUTO) 0.8 10^3/uL (1.5-3.5); LYMPHOCYTES % (AUTO) 14.2 %; MEAN CORPUSCULAR HEMOGLOBIN 32.8 pg (27.0-31.0); MEAN CORPUSCULAR HGB CONC 35.5 g/dL (32.0-36.0); MEAN CORPUSCULAR VOLUME 92.5 fL (80.0-94.0); MEAN PLATELET VOLUME 10.2 fL (7.4-11.4); MONOCYTES # (AUTO) 0.8 10^3/uL (0.0-1.0); MONOCYTES % (AUTO) 14.7 %; NEUTROPHILS # (AUTO) 3.6 10^3/uL (1.5-6.6); NEUTROPHILS % (AUTO) 66.1 %; PLT - PLATELET COUNT 143 10^3/uL (130-450); RED BLOOD COUNT 3.35 10^6/uL (4.70-6.10); RED CELL DISTRIBUTION WIDTH 12.9 % (12.0-15.0); WHITE BLOOD COUNT 5.4 x10^3/uL (4.8-10.8)
[2020-08-25 13:07] LABS: KETONES, SERUM (ACETEST) NEGATIVE (NEGATIVE)
[2020-08-25] MEDS ORDERED: INSULIN REGULAR HUMAN 100 UNIT/1 ML 10 ML MDV IVP STA ×3 (13:11→15:07)
--- NOTE | 2020-08-25 13:12 | ED Physician Documentation ---
History of Present Illness - Stated complaint Stated Complaint: HYPERGLYCEMIA - Chief complaint Chief Complaint: General - History obtained from History obtained from: Patient - Additonal information Additional information: 49-year-old gentleman with alcoholic cirrhosis and type 2 diabetes presents because he had outpatient labs done this morning with a blood sugar of greater than 500. He came from paracentesis. He says he is tired which is his routine after his paracentesis. He has paracentesis twice weekly. On the outpatient labs there was no evidence of DKA. Blood sugar was 534. He admits to intermittent and generally poor compliance with both insulin and diabetic diet. Last alcoholic drink was 8 months ago. Review of Systems Constitutional: reports: Fatigue. denies: Fever, Chills Cardiac: denies: Chest pain / pressure, Palpitations Respiratory: denies: Dyspnea, Cough PD PAST MEDICAL HISTORY - Past Medical History Cardiovascular: Hypertension, High cholesterol Respiratory: Asthma Neuro: Peripheral neuropathy Endocrine/Autoimmune: Type 2 diabetes GI: Cirrhosis : Retention, Indwelling catheter HEENT: Chronic vision loss Psych: Depression, Anxiety Musculoskeletal: Osteoarthritis Derm: Psoriasis, Other - Past Surgical History Past Surgical History: Yes Ortho: Arthroscopic surgery - Present Medications Home Medications: Ambulatory Orders Medication Instructions Recorded Confirmed Albuterol Sulfate [Proair Hfa 1 - 2 puffs INH Q4H PRN 11/13/16 08/25/20 Inhaler] Aspirin [Adult Low Dose Aspirin EC] 81 mg PO DAILY 11/13/16 08/25/20 Insulin Glargine,Hum.rec.anlog 65 units SUBQ DAILY PM 11/13/16 08/25/20 [Basaglar Kwikpen U-100] Insulin Regular, Human [Humulin R] 15 - 30 units SUBQ TIDWM 11/13/16 08/25/20 buPROPion HCL [Bupropion HCl Sr] 150 mg PO BID 02/15/20 08/25/20 Clotrimazole/Betamethasone Crm 1 applic TOP BID #30 g 03/04/20 08/25/20 [Lotrisone Cream] Multivitamin W/Minerals [Theragran 1 tab PO DAILY #30 tablet 03/29/20 08/25/20 M] Furosemide [Lasix] 40 mg PO DAILY 04/10/20 08/25/20 - Allergies Allergies/Adverse Reactions: Allergies Allergy/AdvReac Type Severity Reaction Status Date / Time lisinopril Allergy Unknown Verified 08/25/20 12:23 - Social History Does the pt smoke?: No Smoking Status: Never smoker Does the pt drink ETOH?: No Does the pt have substance abuse?: No - Immunizations Immunizations are current?: Yes - POLST Patient has POLST: No PD ED PE NORMAL - Vitals Vital signs reviewed: Yes - General General: Alert and oriented X 3, No acute distress - HEENT HEENT: PERRL, EOMI - Neck Neck: Supple, no meningeal sign, No bony TTP - Cardiac Cardiac: RRR, No murmur - Respiratory Respiratory: No respiratory distress, Clear bilaterally - Abdomen Abdomen: Soft, Non tender - Back Back: No CVA TTP, No spinal TTP - Derm Derm: Normal color, No rash - Extremities Extremities: No tenderness to palpate, Normal ROM s pain, No calf tenderness / cord - Neuro Neuro: Alert and oriented X 3, Normal speech Results - Vitals Vitals: Vital Signs - 24 hr 08/25/20 08/25/20 12:24 14:35 Temperature 37.1 C Heart Rate 110 H 91 Respiratory 19 Rate Blood Pressure 122/62 102/64 O2 Saturation 100 97 Oxygen O2 Source Room air - Labs Labs: Laboratory Tests 08/25/20 08/25/20 08/25/20 12:56 12:56 12:56 WBC 5.4 RBC 3.35 L Hgb 11.0 L Hct 31.0 L MCV 92.5 MCH 32.8 H MCHC 35.5 RDW 12.9 Plt Count 143 MPV 10.2 Neut # (Auto) 3.6 Lymph # (Auto) 0.8 L Antelope # (Auto) 0.8 Eos # (Auto) 0.2 Baso # (Auto) 0.1 Absolute Nucleated RBC 0.00 Nucleated RBC % 0.0 Sodium 122 L Potassium 5.2 H Chloride 85 L Carbon Dioxide 27 Anion Gap 10.0 BUN 82 H* Creatinine 1.7 H Estimated GFR (MDRD) 43 L Glucose 606 H* POC Whole Bld Glucose Lactic Acid 2.2 Calcium 8.7 Total Bilirubin 1.3 H AST 31 ALT 26 Alkaline Phosphatase 82 Total Protein 6.2 L Albumin 3.9 Globulin 2.3 Albumin/Globulin Ratio 1.7 Lipase 344 H Serum Ketones NEGATIVE 08/25/20 08/25/20 14:11 15:06 WBC RBC Hgb Hct MCV MCH MCHC RDW Plt Count MPV Neut # (Auto) Lymph # (Auto) Antelope # (Auto) Eos # (Auto) Baso # (Auto) Absolute Nucleated RBC Nucleated RBC % Sodium Potassium Chloride Carbon Dioxide Anion Gap BUN Creatinine Estimated GFR (MDRD) Glucose POC Whole Bld Glucose 541 H* 518 H* Lactic Acid Calcium Total Bilirubin AST ALT Alkaline Phosphatase Total Protein Albumin Globulin Albumin/Globulin Ratio Lipase Serum Ketones PD MEDICAL DECISION MAKING - ED course ED course: 49-year-old gentleman with alcoholic cirrhosis and type 2 diabetes on insulin presents with hyperglycemia which is fairly significant. Received first 10 units of insulin which only made a modest change in his blood sugar and another 15 units IV, blood sugar still well over [address] Farooq for admission at 3:09 PM. Departure - Departure Disposition: ED Place in Observation Clinical Impression: Diabetes mellitus, insulin dependent (IDDM), uncontrolled Condition: Stable
[2020-08-25 13:22] LABS: ALBUMIN 3.9 g/dL (3.2-5.5); ALBUMIN/GLOBULIN RATIO 1.7 (1.0-2.2); ALKALINE PHOSPHATASE 82 IU/L (42-121); ALT ALANINE AMINOTRANSFERASE 26 IU/L (10-60); AST ASPARTATE AMINOTRANSFERASE 31 IU/L (10-42); BILIRUBIN,TOTAL 1.3 mg/dL (0.2-1.0); CALCIUM 8.7 mg/dL (8.5-10.3); CARBON DIOXIDE - CO2 27 mmol/L (21-32); CHLORIDE 85 mmol/L (101-111); CREATININE 1.7 mg/dL (0.6-1.2); GFR - MDRD 43 (>89); LIPASE 344 U/L (22-51); POTASSIUM 5.2 mmol/L (3.5-5.0); SODIUM 122 mmol/L (135-145); TOTAL PROTEIN 6.2 g/dL (6.7-8.2)
[2020-08-25 13:27] LABS: BUN - BLOOD UREA NITROGEN 82 mg/dL (6-20); GLUCOSE 606 mg/dL (70-100)
[2020-08-25] MEDS ORDERED: ONDANSETRON 4 MG/2 ML VIAL IVP STA (14:01)
[2020-08-25] MEDS ORDERED: HYDROmorphone 1 MG/ML CARPUJECT IVP STA (15:09)
[2020-08-25] MEDS ORDERED: ACETAMINOPHEN 325 MG TABLET PO PRN (15:12)
[2020-08-25] MEDS ORDERED: SODIUM CHLORIDE FLUSH 0.9% 10 ML SYRINGE IVP PRN (15:12)
[2020-08-25] MEDS ORDERED: ALBUTEROL NEB 2.5 MG/3 ML INH PRN (15:46)
[2020-08-25] MEDS: LACTATED RINGERS 1,000 ML IV SCH (16:00)
[2020-08-25 16:26] LABS: B. PARAPERTUSSIS- RESP PCR PAN NOT DETECTED; B. PERTUSSIS- RESP PCR PANEL NOT DETECTED; C. PNEUMONIAE- RESP PCR PANEL NOT DETECTED; CORONAVIRUS 229E-RESP PCR NOT DETECTED; CORONAVIRUS HKU1-RESP PCR NOT DETECTED; CORONAVIRUS NL63-RESP PCR NOT DETECTED; CORONAVIRUS OC43-RESP PCR NOT DETECTED; HUMAN METAPNEUMOVIRUS NOT DETECTED; INFLUENZA A- RESP PCR PANEL NOT DETECTED; INFLUENZA B - RESP PCR PANEL NOT DETECTED; M. PNEUMONIAE- RESP PCR PANEL NOT DETECTED; PARAINFLUENZA VIRUS 1 NOT DETECTED; PARAINFLUENZA VIRUS 2 NOT DETECTED; PARAINFLUENZA VIRUS 3 NOT DETECTED; PARAINFLUENZA VIRUS 4 NOT DETECTED; RHINOVIRUS/ENTEROVIRUS NOT DETECTED; RSV- RESP PCR PANEL NOT DETECTED; SARS-CoV-2 -RESP PCR PANEL NOT DETECTED
--- NOTE | 2020-08-25 16:52 | HISTORY & PHYSICAL EXAMINATION ---
Chief Complaint - Chief Complaint Chief Complaint: hyperglycemia History of Present Illness - Admitted From Admitted From:: ER - History Obtained From Records Reviewed: Meditech History obtained from: pt and meditech Exam Limitations: no - History of Present Illness HPI Comment/Other: This is a 49-year-old male with a PMH significant for alcohol abuse, alcoholic cirrhosis with ascites which required twice Paracentesis and albumin infusion, and poor controlled type 2 diabetes presents ER for poor controlled diabetes and severe hyperglycemia. Patient states he was at the [facility] today for a paracentesis and an albumin infusion. Patient reports he had light headedness and nausea as his baseline after he had Paracentesis. He reports 8.7 liters of fluid removed today. Pt also report he was tired and fatigue for his routine twice per week of paracentesis. [facility] clinic staff told pt his blood sugar was over 500 and advise pt come ER. pt report he has been generally poor compliance with both insulin and diabetic diet. Lab test show there was no evidence of DKA. ER provider gave pt 10 units of insulin which only made slight change in his blood glucose, and another 15 units IV of insulin was given again, but blood sugar was still over 500. Medical team was consulted for poor control diabetic and severe hyperglycemia. Discussed the care goal with the patient, patient requests full code History - Past Medical History Cardiovascular: reports: Hypertension, High cholesterol Respiratory: reports: Asthma Neuro: reports: Peripheral neuropathy Endocrine/Autoimmune: reports: Type 2 diabetes GI: reports: Cirrhosis : reports: Retention, Indwelling catheter HEENT: reports: Chronic vision loss Psych: reports: Depression, Anxiety Musculoskeletal: reports: Osteoarthritis Derm: reports: Psoriasis, Other MRSA Hx?: No - Past Surgical History Ortho: reports: Arthroscopic surgery - Family & Social History Family History: Mother: Alive and Well Family History Comment/Other: pt is living with his mother and he is caregiver of his mother. no inherited disease. Living Situation: With family Social History Notes: Patient denies history of cigarette smoking, he report he last drank alcohol is 8 months ago. - Substance History Use: Uses substance without health or social issues: Tobacco (hx of 25 year smoking), Alcohol (beer; sober since prioir admit) - POLST Patient has POLST: No Meds/Allgy - Home Medications Home Medications: Ambulatory Orders Medication Instructions Recorded Confirmed Albuterol Sulfate [Proair Hfa 1 - 2 puffs INH Q4H PRN 11/13/16 08/25/20 Inhaler] Aspirin [Adult Low Dose Aspirin EC] 81 mg PO DAILY 11/13/16 08/25/20 Insulin Glargine,Hum.rec.anlog 65 units SUBQ DAILY PM 11/13/16 08/25/20 [Basaglar Kwikpen U-100] Insulin Regular, Human [Humulin R] 15 - 30 units SUBQ TIDWM 11/13/16 08/25/20 buPROPion HCL [Bupropion HCl Sr] 150 mg PO BID 02/15/20 08/25/20 Clotrimazole/Betamethasone Crm 1 applic TOP BID #30 g 03/04/20 08/25/20 [Lotrisone Cream] Multivitamin W/Minerals [Theragran 1 tab PO DAILY #30 tablet 03/29/20 08/25/20 M] Furosemide [Lasix] 40 mg PO DAILY 04/10/20 08/25/20 - Allergies Allergies/Adverse Reactions: Allergies Allergy/AdvReac Type Severity Reaction Status Date / Time lisinopril Allergy Unknown Verified 08/25/20 12:23 Review of Systems - Constitutional Constitutional: reports: Fatigue. denies: Fever, Chills, Diaphoresis, Night sweats - Eyes Eyes: denies: Pain, Field loss, Vision loss - Ears, Nose & Throat Ears, Nose & Throat: denies: Ear pain, Nosebleeds, Bleeding gums - Cardiovascular Cariovascular: reports: Lightheadedness. denies: Irregular heart rate, Palpitations, Chest pain, Syncope, Exertional dyspnea, Decr. exercise tolerance - Respiratory Respiratory: denies: Cough, Wheezing, SOB at rest, SOB with exertion - Gastrointestinal Gastrointestinal: reports: Nausea, Vomiting. denies: Abdominal pain, Constipation, Diarrhea - Genitourinary Genitourinary: denies: Dysuria, Urgency, Incontinence - Musculoskeletal Musculoskeletal: denies: Muscle pain, Muscle aches - Integumentary Integumentary: denies: Rash, Lumps - Neurological Neurological: reports: General weakness. denies: Focal weakness, Headache, Dizziness, Numbness, Memory problems, Abnormal gait, Seizures, Incoordination, Slurred speech - Psychiatric Psychiatric: denies: Depression, Anxiety - Endocrine Endocrine: denies: Polyuria - Hematologic/Lymphatic Hematologic/Lymphatic: denies: Anemia Prior Level of Functionality: Patient is independent in the home Exam - Vital Signs Vital Signs: Vital Signs x48h Temp Pulse Resp BP Pulse Ox 08/25/20 14:35 91 102/64 97 08/25/20 12:24 37.1 C 110 H 19 122/62 100 - Physical Exam General Appearance: positive: No acute distress, Alert. negative: Lethargic Eyes Bilateral: positive: Normal inspection, PERRL, No lid inflammation ENT: positive: ENT inspection nml, Dry mucous membranes. negative: Purulent nasal drainage Neck: positive: Nml inspection, Trachea midline. negative: Thyromegaly, Tracheal deviation Respiratory: positive: Chest non-tender, No respiratory distress. negative: Wheezes, Rales Cardiovascular: positive: Regular rate & rhythm, No murmur. negative: Tachycardia, Bradycardia, Systolic murmur, Diastolic murmur Peripheral Pulses: positive: 2+ Abdomen: positive: Non-tender, Nml bowel sounds, No distention. negative: Tenderness, Guarding Back: positive: Nml inspection Skin: positive: Color nml, Warm, Dry. negative: Cyanosis, Diaphoresis Extremities: positive: Non-tender, Nml appearance. negative: Calf tenderness Neurologic/Psychiatric: positive: Oriented x3, Sensation nml, Mood/affect nml. negative: Weakness, Sensory loss, Facial droop, Slurred/abnml speech Conclusion/Plan - Problem List (1) Hyperglycemia Conclusion/Plan: pt's serum ketone is negative. after pt was given total 40 unit of insulin today in ER, pt's glucose is down to 293, pt has nausea and vomiting, did not want to eat. Will reduce slide scale to 1-9 unit, continue home Lantus, check A1C and start with hypoglycemia protocol. (2) Diabetes mellitus, insulin dependent (IDDM), uncontrolled Conclusion/Plan: it is likely due to pt's medical non compliance with high glucose diet per pt's report. educate the importance for medical compliance, start with slide scale, start hypoglycemia protocol (3) Ascites due to alcoholic cirrhosis Conclusion/Plan: pt had twice per week for Paracentesis with albumin infusion. pt may followup with schedule in [facility] clinic, and prevention of infection. pt has normal arrange WBC, no fever and no tenderness at abdomen. (4) Nausea & vomiting Conclusion/Plan: pt present nausea and vomiting. As pt's baseline after he had Paracentesis. start gently IVF and Antiemesis as needed, Continue agriculture laboratory technician, And vital signs monitor, clear liquid diet, Advance diet as patient tolerated. (5) Hyponatremia Conclusion/Plan: Patient's sodium is 122, patient has history of hyponatremia, is likely from patient ascites, Liver failure. Patient reported he had 8.7 L of fluids removed from paracentesis on today. Clinically patient also show dehydration, dry mouth. pt also had nausea and vomiting. We will give patient gently intravenous IV fluids with normal saline, Continue laboratory and sodium monitor, Precaution fluid overload. Vital signs monitor. (6) Medical non-compliance Conclusion/Plan: Patient report he was not well compliance with home insulin and carb controlled diet. Education to patient the importance for medical compliance to control his sugar. consult with office equipment mechanic and nurse education for diabetes. - Lab Results Fish Bones: 08/25/20 12:56 08/25/20 12:56 Core Measures - Anticipated LOS I expect patient to be DC'd or transferred within 96 hours.: Yes - DVT/VTE - Prophylaxis VTE/DVT Device ordered at admit?: Yes VTE/DVT Prophylaxis med ordered at admit?: Yes
[2020-08-25] MEDS ORDERED: INSULIN REGULAR HUMAN 300 UNIT/3 ML VIAL SUBQ SCH ×2 (17:00)
[2020-08-25] MEDS: SODIUM CHLORIDE FLUSH 0.9% 10 ML SYRINGE IVP SCH (17:19)
[2020-08-25] MEDS: INSULIN ASPART 300 UNIT/3 ML PEN SUBQ SCH ×2 (17:31→22:07)
[2020-08-25] MEDS ORDERED: NALOXONE 0.4 MG/ML VIAL IVP ONE (19:34)
[2020-08-25] MEDS: LACTULOSE 10 GM /15 ML UDC PR SCH ×2 (20:44→22:07)
[2020-08-25] MEDS ORDERED: INSULIN GLARGINE 300 UNIT/3 ML PEN SUBQ SCH ×3 (21:00)
[2020-08-25] MEDS ORDERED: LACTULOSE 10 GM /15 ML UDC PR SCH ×2 (22:00)
[2020-08-25] MEDS: buPROPion SR 150 MG TABLET PO SCH (22:00)
--- NOTE | 2020-08-25 23:05 | PROVIDER PROGRESS NOTE ---
Open Hearth Furnace Operator Note - Open Hearth Furnace Operator Note [employer] Hearth Furnace Operator Note: August 25, 2020 11:03 PM A change of shift this evening, 7 PM, the patient had a sudden change in status with regards to altered mentation. He had been sleepy but awake and appropriate. At change of shift he became suddenly somnolent. He was examined and he was responsive to voice, able to follow commands. But exceedingly lethargic. Pupils are reactive. Blood pressure and pulse and oxygenation were normal. He was slightly hypopneic with a respiratory rate of 10 and given Narcan. Dilaudid had been given at 3 in the afternoon. No response to Narcan. Stat ammonia level was done and 212. He received one 100 g dose of lactulose per rectum. He is now awake. Complaining of inability to urinate. Bladder scan shows greater than a liter but it is difficult to say with upper looking at ascites or bladder. 10 minutes has been spent trying to get him to stand, urinate but he just cannot. As such straight cath will be ordered. Lactulose is changed from per rectum to p.o. twice daily.
[2020-08-25] MEDS: LACTULOSE 10 GM /15 ML UDC PO SCH (23:51)
[2020-08-26] MEDS: SODIUM CHLORIDE FLUSH 0.9% 10 ML SYRINGE IVP SCH ×4 (00:03→23:43)
[2020-08-26] MEDS: oxyCODONE 5 MG TABLET PO PRN ×2 (00:09→22:56)
[2020-08-26] MEDS: LACTATED RINGERS 1,000 ML IV SCH (01:59)
[2020-08-26 05:10] LABS: BASOPHILS # (AUTO) 0.1 10^3/uL (0.0-0.1); BASOPHILS % (AUTO) 0.9 %; EOSINOPHILS # (AUTO) 0.2 10^3/uL (0.0-0.7); EOSINOPHILS % (AUTO) 3.7 %; HCT - HEMATOCRIT 30.3 % (42.0-52.0); HGB - HEMOGLOBIN 10.9 g/dL (14.0-18.0); LYMPHOCYTES % (AUTO) 17.4 %; MEAN CORPUSCULAR HEMOGLOBIN 32.6 pg (27.0-31.0); MEAN CORPUSCULAR VOLUME 90.7 fL (80.0-94.0); MONOCYTES % (AUTO) 16.7 %; NEUTROPHILS # (AUTO) 3.6 10^3/uL (1.5-6.6); PLT - PLATELET COUNT 132 10^3/uL (130-450); RED BLOOD COUNT 3.34 10^6/uL (4.70-6.10); RED CELL DISTRIBUTION WIDTH 12.9 % (12.0-15.0); WHITE BLOOD COUNT 5.9 x10^3/uL (4.8-10.8)
[2020-08-26 05:21] LABS: CALCIUM 8.7 mg/dL (8.5-10.3); CREATININE 1.4 mg/dL (0.6-1.2); MAGNESIUM 2.8 mg/dL (1.7-2.8); PHOSPHORUS 4.1 mg/dL (2.5-4.6); POTASSIUM 4.2 mmol/L (3.5-5.0)
--- NOTE | 2020-08-26 07:07 | PHARMACY PROGRESS NOTE ---
- Best Possible Medication History Admit Date and Time: 08/25/20 1512 Processed by: Nursing Medication History completed: Yes Patient Interview: Completed Secondary Source(s): Pharmacy records, Insurance records As the person ultimately responsible for medication therapy, providers are able to order a medication from an existing home medication list in [facility] via the "Reconcile Routine" prior to Confirmation of that medication by youth support worker. Such practice is discouraged except when the physician, in their clinical judgment, deems that a medical need exists for a medication without regard to previous use.
[2020-08-26] MEDS: PROCHLORPERAZINE 10 MG/2 ML VIAL IVP PRN (07:54)
[2020-08-26] MEDS: buPROPion SR 150 MG TABLET PO SCH ×2 (08:24→20:44)
[2020-08-26] MEDS: LACTULOSE 10 GM /15 ML UDC PO SCH ×4 (08:24→20:44)
[2020-08-26] MEDS: ASPIRIN EC 81 MG TABLET PO SCH (08:24)
[2020-08-26] MEDS: TAMSULOSIN 0.4 MG CAPSULE PO SCH (08:24)
[2020-08-26] MEDS: MULTIVITAMIN W/MINERALS TABLET PO SCH (08:24)
[2020-08-26] MEDS: INSULIN ASPART 300 UNIT/3 ML PEN SUBQ SCH ×7 (08:25→20:54)
[2020-08-26] MEDS ORDERED: LACTULOSE 10 GM /15 ML UDC PO SCH (09:00)
[2020-08-26] MEDS: CALAMINE/ZINC OXIDE 177 ML BOTTLE TOP PRN ×2 (11:53→21:06)
--- NOTE | 2020-08-26 12:27 | Discharge Plan ---
Discharge Plan Problem Reviewed?: Yes Disposition: 01 Home, Self Care Condition: Stable Diet: Diabetic Activity Restrictions: Activity as Tolerated Health Concerns: You were seen in the hospital because of elevated blood sugars. Your A1c is elevated at 9.5% which shows that your blood sugars have not been well controlled. You do admit to poor compliance and it is important that you take your insulin as prescribed and log your blood sugars on a regular basis so that your primary care provider can help adjust her insulin. Please make sure to check your blood sugars before every meals and at night. You are also found to be quite lethargic and sleepy yesterday evening and we checked an ammonia level which was quite elevated. This can cause fatigue and confusion. This becomes elevated in people who have liver disease as the liver cannot cleared appropriately. We have prescribed you a new medication called lactulose which you will need to take 3 times a day. You also have had urinary retention and you have had over a liter in your bladder twice now. We placed a Blunt catheter which he will need to have in place on discharge. Plan of Treatment: Given your blood sugars have been elevated, I recommend increase your Lantus to 70 units in the evening and continue taking the NovoLog as you have previously been doing but please take at least 30 units with every meal. Please follow-up with your primary care provider next week. Given your ammonia level was still elevated, you will need to take lactulose. Please take this 3-4 times a day. You should be having at least 2-3 bowel movements a day. If you develop diarrhea and you can cut down the dose of lactulose. If you do not have a bowel movement then you may need to increase the dose of lactulose from 20 g to 30 g. It is important that you have at least 2-3 bowel movements a day. You were also found to have a urinary retention during his hospitalization and you will need a Blunt catheter on discharge. Please follow-up with your primary care provider as you will need a urology referral at some point. I have prescribed you Flomax which you will need to take on a daily basis. This can help make it easier for you to urinate by relaxing the prostate. Please also stop taking your Lasix as I believe you are a little bit dehydrated and this has affected your kidneys. Care Goals: The goal is to help control your blood sugars and to prevent your ammonia from becoming elevated again. Assessment: The patient expressed understanding of the treatment plan. Additional Instructions or Follow Up instructions: Please follow-up with your primary care provider next week. Please return to the emergency department if your blood sugars are persistently elevated or if you become more lethargic or confused. No Smoking: If you smoke, Please STOP! Call for help. Follow-up with: Montrell Brady MD [Primary Care Provider] -
--- NOTE | 2020-08-26 12:32 | DISCHARGE SUMMARY ---
Discharge Summary Admit Date: 08/25/20 Discharge Date: 08/26/20 Discharging Provider: Karan Farooq Primary Care Provider: Montrell Brady Code Status: Attempt Resuscitation Condition at Discharge: Stable Discharge Disposition: 01 Home, Self Care - DIAGNOSES Admission Diagnoses: Hyperglycemia Insulin-dependent diabetes mellitus Ascites due to alcoholic cirrhosis Nausea and vomiting Hyponatremia Medical noncompliance Discharge Diagnoses with Status of Each Condition: Hyperglycemia - resolved. Insulin-dependent diabetes mellitus - stable. Hepatic encephalopathy - resolved. Acute kidney injury - improved. Urinary retention - ongoing. Ascites due to alcoholic cirrhosis - stable. Hyponatremia - stable. Medication noncompliance - ongoing. - HPI History of Present Illness: H&P per ROOSEVELT Hendrickson: This is a 49-year-old male with a PMH significant for alcohol abuse, alcoholic cirrhosis with ascites which required twice Paracentesis and albumin infusion, and poor controlled type 2 diabetes presents ER for poor controlled diabetes and severe hyperglycemia. Patient states he was at the [facility] today for a paracentesis and an albumin infusion. Patient reports he had light headedness and nausea as his baseline after he had Paracentesis. He reports 8.7 liters of fluid removed today. Pt also report he was tired and fatigue for his routine twice per week of paracentesis. [facility] clinic staff told pt his blood sugar was over 500 and advise pt come ER. pt report he has been generally poor compliance with both insulin and diabetic diet. Lab test show there was no evidence of DKA. ER provider gave pt 10 units of insulin which only made slight change in his blood glucose, and another 15 units IV of insulin was given again, but blood sugar was still over 500. Medical team was consulted for poor control diabetic and severe hyperglycemia. Discussed the care goal with the patient, patient requests full code - HOSPITAL COURSE Hospital Course: The patient was admitted to the floor for hyperglycemia as his blood glucose remained elevated greater than 500 despite treatment in the emergency department. He was continued on his home dose of Lantus and was given another 15 units of IV insulin. His blood glucose then improved to the 200s. He was started on a diet and we continued his home NovoLog in addition to his Lantus and his blood glucose has been stable. His A1c did come back at 9.5%. I have asked him to increase his Lantus dose to 70 units and to continue his home dose of NovoLog. I have asked him to follow-up with his primary care provider and he tells me that he will also be seeing health educator which was previously scheduled. He was also noted to be quite lethargic and fatigued yesterday evening. We checked an ammonia level and it was greater than 200. He was given lactulose and his ammonia level has improved to 80 and he is no longer lethargic and is back to his baseline. We have prescribed him lactulose to take 3 times a day and titrate to 2-3 bowel movements a day. He also had urinary retention during this hospitalization and he was straight cathed twice for over 1 L. A Blunt catheter was placed prior to discharge and he was started on Flomax. He was asked to follow-up with his primary care provider and to consider a urology consult. He also had acute kidney injury on admission and it was noted that his creatinine had been slowly climbing over the past 6 months. We did hydrate him with IV lactated Ringer's and I have asked him to stop his Lasix on discharge. A component of his injury may be due to obstruction given his urinary retention but we did not obtain imaging given a catheter was placed. His creatinine has also improved during this hospitalization to 1.4 from 1.7. He will need repeat l abs on outpatient basis. - ALLERGIES Allergies/Adverse Reactions: Allergies Allergy/AdvReac Type Severity Reaction Status Date / Time lisinopril Allergy Unknown Verified 08/25/20 12:23 - MEDICATIONS Home Medications: Ambulatory Orders Medication Instructions Recorded Confirmed Albuterol Sulfate [Proair Hfa 1 - 2 puffs INH Q4H PRN 11/13/16 08/25/20 Inhaler] Aspirin [Adult Low Dose Aspirin EC] 81 mg PO DAILY 11/13/16 08/25/20 Insulin Glargine,Hum.rec.anlog 65 units SUBQ DAILY PM 11/13/16 08/25/20 [Basaglar Kwikpen U-100] Insulin Regular, Human [Humulin R] 15 - 30 units SUBQ TIDWM 11/13/16 08/25/20 buPROPion HCL [Bupropion HCl Sr] 150 mg PO BID 02/15/20 08/25/20 Clotrimazole/Betamethasone Crm 1 applic TOP BID #30 g 03/04/20 08/25/20 [Lotrisone Cream] Multivitamin W/Minerals [Theragran 1 tab PO DAILY #30 tablet 03/29/20 08/25/20 M] Furosemide [Lasix] 40 mg PO DAILY 04/10/20 08/25/20 - PHYSICAL EXAM AT DISCHARGE General Appearance: positive: No acute distress, Alert Eyes Bilateral: positive: Normal inspection ENT: positive: ENT inspection nml Neck: positive: Nml inspection Respiratory: positive: No respiratory distress. negative: Wheezes, Rales Cardiovascular: positive: Regular rate & rhythm, No murmur. negative: Tachycardia, Systolic murmur Abdomen: positive: Non-tender, No distention, Other (Umbilical hernia noted.). negative: Tenderness Skin: positive: Warm, Dry Extremities: positive: No pedal edema Neurologic/Psychiatric: negative: Disoriented to person, Disoriented to place - LABS Result Diagrams: 08/27/20 04:37 08/27/20 04:37 - FOLLOW UP Follow Up: He was asked to follow-up with his primary care provider next week and to follow-up with the health educator as scheduled. It was recommended that he consider a urology consult - TIME SPENT Time Spent in Discharge (Minutes): 31
--- NOTE | 2020-08-26 13:41 | PROVIDER PROGRESS NOTE ---
Subjective - Prog Note Date Prog Note Date: 08/26/20 - Subjective Subjective: He had 1 episode of vomiting this morning. Still feels a little nauseous after lunch but has not vomited. He still feels quite fatigued and not quite himself. He has been lethargic but more alert compared to yesterday evening. No bowel movement yet today. Current Medications - Current Medications Current Medications: Active Medications Acetaminophen (Acetaminophen 325 Mg Tablet) 650 mg PO Q4HR PRN PRN Reason: Pain 1 to 4 Albuterol (Albuterol Neb 2.5 Mg/3 Ml) 2.5 mg INH RTQ4H PRN PRN Reason: Wheezing Aspirin (Aspirin Ec 81 Mg Tablet) 81 mg PO DAILY [facility] Last Admin: 08/26/20 08:24 Dose: 81 mg Documented by: Bupropion HCl (Bupropion Sr 150 Mg Tablet) 150 mg PO BID [facility] Last Admin: 08/26/20 08:24 Dose: 150 mg Documented by: Calamine (Calamine/Zinc Oxide 177 Ml Bottle) 1 applic TOP PRN PRN PRN Reason: SKIN CARE Last Admin: 08/26/20 11:53 Dose: 1 applic Documented by: Insulin Aspart (Insulin Aspart 300 Unit/3 Ml Pen) 1 - 9 unit SUBQ 0800,1200,1700,2100 [facility]; Protocol Last Admin: 08/26/20 11:53 Dose: 1 unit Documented by: Insulin Aspart (Insulin Aspart 300 Unit/3 Ml Pen) 25 unit SUBQ TIDWM [facility] Last Admin: 08/26/20 11:54 Dose: 25 unit Documented by: Insulin Glargine (Insulin Glargine 300 Unit/3 Ml Pen) 65 unit SUBQ QPM [facility] Last Admin: 08/25/20 22:00 Dose: 65 unit Documented by: Lactulose (Lactulose 10 Gm /15 Ml Udc) 10 gm PO TID [facility] Last Admin: 08/26/20 11:53 Dose: 10 gm Documented by: Multivitamins/Minerals (Multivitamin W/Minerals Tablet) 1 tab PO DAILY [facility] Last Admin: 08/26/20 08:24 Dose: 1 tab Documented by: Oxycodone HCl (Oxycodone 5 Mg Tablet) 5 mg PO Q4HR PRN PRN Reason: Pain 5 to 7 Last Admin: 08/26/20 00:09 Dose: 5 mg Documented by: Prochlorperazine Edisylate (Prochlorperazine 10 Mg/2 Ml Vial) 10 mg IVP Q6HR PRN PRN Reason: Nausea / Vomiting Last Admin: 08/26/20 07:54 Dose: 10 mg Documented by: Sodium Chloride (Sodium Chloride Flush 0.9% 10 Ml Syringe) 10 ml IVP PRN PRN PRN Reason: NEEDED PER PROVIDER ORDERS Sodium Chloride (Sodium Chloride Flush 0.9% 10 Ml Syringe) 10 ml IVP 0100,0900,1700 [facility] Last Admin: 08/26/20 08:29 Dose: 10 ml Documented by: Tamsulosin HCl (Tamsulosin 0.4 Mg Capsule) 0.4 mg PO DAILY [facility] Last Admin: 08/26/20 08:24 Dose: 0.4 mg Documented by: Albuterol Sulfate [Proair Hfa Inhaler] 1 - 2 puffs INH Q4H PRN 11/13/16 Aspirin [Adult Low Dose Aspirin EC] 81 mg PO DAILY 11/13/16 Insulin Glargine,Hum.rec.anlog [Basaglar Kwikpen U-100] 65 units SUBQ DAILY PM 11/13/16 Insulin Regular, Human [Humulin R] 15 - 30 units SUBQ TIDWM 11/13/16 buPROPion HCL [Bupropion HCl Sr] 150 mg PO BID 02/15/20 Furosemide [Lasix] 40 mg PO DAILY 04/10/20 Objective - Vital Signs/Intake & Output Reviewed Vital Signs: Yes Vital Signs: Vital Signs x48h Temp Pulse Resp BP Pulse Ox 08/26/20 11:21 36.8 C 94 18 125/72 97 08/26/20 07:09 36.4 C L 81 18 100/62 97 Intake & Output: Intake & Output 08/23/20 08/24/20 08/25/20 08/26/20 23:59 23:59 23:59 23:59 Intake Total 4123.333 Output Total 1500 2385 Balance -1500 1738.333 - Objective General Appearance: positive: No acute distress, Alert, Lethargic Eyes Bilateral: positive: Normal inspection, Conjunctivae nml ENT: positive: ENT inspection nml Neck: positive: Nml inspection Respiratory: positive: No respiratory distress. negative: Wheezes, Rales Cardiovascular: positive: Regular rate & rhythm, No murmur. negative: Tachycardia, Systolic murmur Abdomen: positive: Non-tender, No distention, Other (Umbilical hernia noted.). negative: Tenderness, Guarding, Rebound Skin: positive: Warm, Dry Extremities: positive: No pedal edema Neurologic/Psychiatric: negative: Disoriented to person, Disoriented to place - Lab Results Fish Bones: 08/26/20 05:00 08/26/20 05:00 Other Labs: Lab Results x24hrs 08/26/20 08/26/20 08/26/20 Range/Units 11:01 07:21 05:00 WBC (4.8-10.8) x10^3/uL RBC (4.70-6.10) 10^6/uL Hgb (14.0-18.0) g/dL Hct (42.0-52.0) % MCV (80.0-94.0) fL MCH (27.0-31.0) pg MCHC (32.0-36.0) g/dL RDW (12.0-15.0) % Plt Count (130-450) 10^3/uL MPV (7.4-11.4) fL Neut # (Auto) (1.5-6.6) 10^3/uL Lymph # (Auto) (1.5-3.5) 10^3/uL [place] # (Auto) (0.0-1.0) 10^3/uL Eos # (Auto) (0.0-0.7) 10^3/uL Baso # (Auto) (0.0-0.1) 10^3/uL Absolute Nucleated RBC x10^3/uL Nucleated RBC % /100WBC Sodium (135-145) mmol/L Potassium (3.5-5.0) mmol/L Chloride (101-111) mmol/L Carbon Dioxide (21-32) mmol/L Anion Gap (6-13) BUN (6-20) mg/dL Creatinine (0.6-1.2) mg/dL Estimated GFR (MDRD) (>89) Glucose (70-100) mg/dL POC Whole Bld Glucose 178 H 197 H (70 - 100) mg/dL Calcium (8.5-10.3) mg/dL Phosphorus (2.5-4.6) mg/dL Magnesium (1.7-2.8) mg/dL Ammonia 80.1 H* (7-35) umol/L Nasal Adenovirus (PCR) Nasal B. parapertussis DNA (PCR) Nasal Coronavir 229E PCR Nasal Coronavir HKU1 PCR Nasal Coronavir NL63 PCR Nasal Coronavir OC43 PCR Nasal Enterovir/Rhinovir PCR Nasal Influenza B PCR Nasal Influenza A PCR Nasal Parainfluen 1 PCR Nasal Parainfluen 2 PCR Nasal Parainfluen 3 PCR Nasal Parainfluen 4 PCR Nasal RSV (PCR) Nasal B.pertussis DNA PCR Nasal C.pneumoniae (PCR) Natanael Human Metapneumo PCR Nasal M.pneumoniae (PCR) Nasal SARS-CoV-2 (PCR) 08/26/20 08/26/20 08/25/20 Range/Units 05:00 05:00 21:23 WBC 5.9 (4.8-10.8) x10^3/uL RBC 3.34 L (4.70-6.10) 10^6/uL Hgb 10.9 L (14.0-18.0) g/dL Hct 30.3 L (42.0-52.0) % MCV 90.7 (80.0-94.0) fL MCH 32.6 H (27.0-31.0) pg MCHC 36.0 (32.0-36.0) g/dL RDW 12.9 (12.0-15.0) % Plt Count 132 (130-450) 10^3/uL MPV 10.0 (7.4-11.4) fL Neut # (Auto) 3.6 (1.5-6.6) 10^3/uL Lymph # (Auto) 1.0 L (1.5-3.5) 10^3/uL [place] # (Auto) 1.0 (0.0-1.0) 10^3/uL Eos # (Auto) 0.2 (0.0-0.7) 10^3/uL Baso # (Auto) 0.1 (0.0-0.1) 10^3/uL Absolute Nucleated RBC 0.00 x10^3/uL Nucleated RBC % 0.0 /100WBC Sodium 131 L (135-145) mmol/L Potassium 4.2 (3.5-5.0) mmol/L Chloride 94 L (101-111) mmol/L Carbon Dioxide 28 (21-32) mmol/L Anion Gap 9.0 (6-13) BUN 72 H (6-20) mg/dL Creatinine 1.4 H (0.6-1.2) mg/dL Estimated GFR (MDRD) 53 L (>89) Glucose 249 H (70-100) mg/dL POC Whole Bld Glucose 264 H (70 - 100) mg/dL Calcium 8.7 (8.5-10.3) mg/dL Phosphorus 4.1 (2.5-4.6) mg/dL Magnesium 2.8 (1.7-2.8) mg/dL Ammonia (7-35) umol/L Nasal Adenovirus (PCR) Nasal B. parapertussis DNA (PCR) Nasal Coronavir 229E PCR Nasal Coronavir HKU1 PCR Nasal Coronavir NL63 PCR Nasal Coronavir OC43 PCR Nasal Enterovir/Rhinovir PCR Nasal Influenza B PCR Nasal Influenza A PCR Nasal Parainfluen 1 PCR Nasal Parainfluen 2 PCR Nasal Parainfluen 3 PCR Nasal Parainfluen 4 PCR Nasal RSV (PCR) Nasal B.pertussis DNA PCR Nasal C.pneumoniae (PCR) Natanael Human Metapneumo PCR Nasal M.pneumoniae (PCR) Nasal SARS-CoV-2 (PCR) 08/25/20 08/25/20 08/25/20 Range/Units 19:25 18:49 17:24 WBC (4.8-10.8) x10^3/uL RBC (4.70-6.10) 10^6/uL Hgb (14.0-18.0) g/dL Hct (42.0-52.0) % MCV (80.0-94.0) fL MCH (27.0-31.0) pg MCHC (32.0-36.0) g/dL RDW (12.0-15.0) % Plt Count (130-450) 10^3/uL MPV (7.4-11.4) fL Neut # (Auto) (1.5-6.6) 10^3/uL Lymph # (Auto) (1.5-3.5) 10^3/uL [place] # (Auto) (0.0-1.0) 10^3/uL Eos # (Auto) (0.0-0.7) 10^3/uL Baso # (Auto) (0.0-0.1) 10^3/uL Absolute Nucleated RBC x10^3/uL Nucleated RBC % /100WBC Sodium (135-145) mmol/L Potassium (3.5-5.0) mmol/L Chloride (101-111) mmol/L Carbon Dioxide (21-32) mmol/L Anion Gap (6-13) BUN (6-20) mg/dL Creatinine (0.6-1.2) mg/dL Estimated GFR (MDRD) (>89) Glucose (70-100) mg/dL POC Whole Bld Glucose 295 H 255 H (70 - 100) mg/dL Calcium (8.5-10.3) mg/dL Phosphorus (2.5-4.6) mg/dL Magnesium (1.7-2.8) mg/dL Ammonia 211.2 H* (7-35) umol/L Nasal Adenovirus (PCR) Nasal B. parapertussis DNA (PCR) Nasal Coronavir 229E PCR Nasal Coronavir HKU1 PCR Nasal Coronavir NL63 PCR Nasal Coronavir OC43 PCR Nasal Enterovir/Rhinovir PCR Nasal Influenza B PCR Nasal Influenza A PCR Nasal Parainfluen 1 PCR Nasal Parainfluen 2 PCR Nasal Parainfluen 3 PCR Nasal Parainfluen 4 PCR Nasal RSV (PCR) Nasal B.pertussis DNA PCR Nasal C.pneumoniae (PCR) Natanael Human Metapneumo PCR Nasal M.pneumoniae (PCR) Nasal SARS-CoV-2 (PCR) 08/25/20 08/25/20 08/25/20 Range/Units 16:04 15:18 15:06 WBC (4.8-10.8) x10^3/uL RBC (4.70-6.10) 10^6/uL Hgb (14.0-18.0) g/dL Hct (42.0-52.0) % MCV (80.0-94.0) fL MCH (27.0-31.0) pg MCHC (32.0-36.0) g/dL RDW (12.0-15.0) % Plt Count (130-450) 10^3/uL MPV (7.4-11.4) fL Neut # (Auto) (1.5-6.6) 10^3/uL Lymph # (Auto) (1.5-3.5) 10^3/uL [place] # (Auto) (0.0-1.0) 10^3/uL Eos # (Auto) (0.0-0.7) 10^3/uL Baso # (Auto) (0.0-0.1) 10^3/uL Absolute Nucleated RBC x10^3/uL Nucleated RBC % /100WBC Sodium (135-145) mmol/L Potassium (3.5-5.0) mmol/L Chloride (101-111) mmol/L Carbon Dioxide (21-32) mmol/L Anion Gap (6-13) BUN (6-20) mg/dL Creatinine (0.6-1.2) mg/dL Estimated GFR (MDRD) (>89) Glucose (70-100) mg/dL POC Whole Bld Glucose 293 H 518 H* (70 - 100) mg/dL Calcium (8.5-10.3) mg/dL Phosphorus (2.5-4.6) mg/dL Magnesium (1.7-2.8) mg/dL Ammonia (7-35) umol/L Nasal Adenovirus (PCR) NOT DETECTED Nasal B. parapertussis DNA (PCR) NOT DETECTED Nasal Coronavir 229E PCR NOT DETECTED Nasal Coronavir HKU1 PCR NOT DETECTED Nasal Coronavir NL63 PCR NOT DETECTED Nasal Coronavir OC43 PCR NOT DETECTED Nasal Enterovir/Rhinovir PCR NOT DETECTED Nasal Influenza B PCR NOT DETECTED Nasal Influenza A PCR NOT DETECTED Nasal Parainfluen 1 PCR NOT DETECTED Nasal Parainfluen 2 PCR NOT DETECTED Nasal Parainfluen 3 PCR NOT DETECTED Nasal Parainfluen 4 PCR NOT DETECTED Nasal RSV (PCR) NOT DETECTED Nasal B.pertussis DNA PCR NOT DETECTED Nasal C.pneumoniae (PCR) NOT DETECTED Natanael Human Metapneumo PCR NOT DETECTED Nasal M.pneumoniae (PCR) NOT DETECTED Nasal SARS-CoV-2 (PCR) NOT DETECTED 08/25/20 Range/Units 14:11 WBC (4.8-10.8) x10^3/uL RBC (4.70-6.10) 10^6/uL Hgb (14.0-18.0) g/dL Hct (42.0-52.0) % MCV (80.0-94.0) fL MCH (27.0-31.0) pg MCHC (32.0-36.0) g/dL RDW (12.0-15.0) % Plt Count (130-450) 10^3/uL MPV (7.4-11.4) fL Neut # (Auto) (1.5-6.6) 10^3/uL Lymph # (Auto) (1.5-3.5) 10^3/uL [place] # (Auto) (0.0-1.0) 10^3/uL Eos # (Auto) (0.0-0.7) 10^3/uL Baso # (Auto) (0.0-0.1) 10^3/uL Absolute Nucleated RBC x10^3/uL Nucleated RBC % /100WBC Sodium (135-145) mmol/L Potassium (3.5-5.0) mmol/L Chloride (101-111) mmol/L Carbon Dioxide (21-32) mmol/L Anion Gap (6-13) BUN (6-20) mg/dL Creatinine (0.6-1.2) mg/dL Estimated GFR (MDRD) (>89) Glucose (70-100) mg/dL POC Whole Bld Glucose 541 H* (70 - 100) mg/dL Calcium (8.5-10.3) mg/dL Phosphorus (2.5-4.6) mg/dL Magnesium (1.7-2.8) mg/dL Ammonia (7-35) umol/L Nasal Adenovirus (PCR) Nasal B. parapertussis DNA (PCR) Nasal Coronavir 229E PCR Nasal Coronavir HKU1 PCR Nasal Coronavir NL63 PCR Nasal Coronavir OC43 PCR Nasal Enterovir/Rhinovir PCR Nasal Influenza B PCR Nasal Influenza A PCR Nasal Parainfluen 1 PCR Nasal Parainfluen 2 PCR Nasal Parainfluen 3 PCR Nasal Parainfluen 4 PCR Nasal RSV (PCR) Nasal B.pertussis DNA PCR Nasal C.pneumoniae (PCR) Natanael Human Metapneumo PCR Nasal M.pneumoniae (PCR) Nasal SARS-CoV-2 (PCR) ABX Reporting Has patient been on IV antibiotics over the past 48 hours?: No Assessment/Plan - Problem List (1) Hepatic encephalopathy Impression: This was the cause of his lethargy and fatigue yesterday evening. His ammonia was greater than 200 and has improved to the 80s this morning. He is still not quite back to his baseline and has not had a bowel movement yet today she will keep him hospitalized 1 more night. I will increase his lactulose to 10 g 3 t imes daily and to titrate 2-3 bowel movements a day. We will recheck an ammonia in the morning. (2) Acute kidney injury Impression: His renal function has been declining over the past 6 months which I suspect may be due to dehydration as well as potential obstruction given he was BladderScan twice overnight for greater than 1 L and was straight cathed both times for a liter. We have placed a Blunt catheter. Given his renal function has improved and he has good urine output, we will not obtain imaging to evaluate for hydronephrosis. (3) Nausea & vomiting Impression: He did have an episode of vomiting this morning was able to tolerate lunch although he does feel nauseous after this. We will keep him hospitalized for his hepatic encephalopathy and continue with diet as tolerated. Compazine and Zofran as needed for nausea. Given his benign abdominal exam, will hold off on imaging. (4) Diabetes mellitus, insulin dependent (IDDM), uncontrolled Impression: His A1c is greater than 9.5% and we discussed his poor compliance. We will increase his Lantus to 70 units and continue with his current dose of NovoLog with meals. He is scheduled to see a conservation educator on outpatient basis. (5) Hyperglycemia Impression: His blood glucose initially over 500 but this has improved and is now less than 200. We have adjusted his insulin as mentioned above. (6) Hyponatremia Impression: Secondary to his liver cirrhosis. His sodium did improve but this was a pseudohyponatremia secondary to hyperglycemia. His sodium is currently at baseline. (7) Urinary retention Impression: He has a history of urinary retention in the past and has required a Blunt catheter. Given he was straight cathed twice for 1 L, we will place a Blunt catheter and start him on Flomax. We will discharge him with a Blunt catheter and he will need outpatient follow-up with his primary care provider and possibly urology. (8) Ascites due to alcoholic cirrhosis Impression: This is secondary to his liver disease. He gets twice weekly paracentesis and his neck scheduled for Friday. He did receive albumin yesterday after his paracentesis. (9) Medical non-compliance Impression: He admits to noncompliance with his insulin for his diabetes. We discussed the importance of this and the need for adequate blood glucose control.
[2020-08-26] MEDS ORDERED: INSULIN ASPART 300 UNIT/3 ML PEN SUBQ ONE (20:52)
[2020-08-26] MEDS ORDERED: INSULIN GLARGINE 300 UNIT/3 ML PEN SUBQ SCH (21:00)
[2020-08-27] MEDS: oxyCODONE 5 MG TABLET PO PRN ×2 (03:00→08:23)
[2020-08-27] MEDS: CALAMINE/ZINC OXIDE 177 ML BOTTLE TOP PRN ×2 (03:01→16:10)
[2020-08-27] MEDS: LACTULOSE 10 GM /15 ML UDC PO SCH (05:23)
[2020-08-27 05:28] LABS: BASOPHILS # (AUTO) 0.1 10^3/uL (0.0-0.1); BASOPHILS % (AUTO) 1.2 %; EOSINOPHILS # (AUTO) 0.2 10^3/uL (0.0-0.7); EOSINOPHILS % (AUTO) 3.1 %; HCT - HEMATOCRIT 30.8 % (42.0-52.0); LYMPHOCYTES % (AUTO) 14.6 %; MEAN CORPUSCULAR HEMOGLOBIN 32.9 pg (27.0-31.0); MEAN CORPUSCULAR HGB CONC 35.7 g/dL (32.0-36.0); MEAN CORPUSCULAR VOLUME 92.2 fL (80.0-94.0); MEAN PLATELET VOLUME 10.2 fL (7.4-11.4); MONOCYTES # (AUTO) 1.1 10^3/uL (0.0-1.0); MONOCYTES % (AUTO) 15.9 %; NEUTROPHILS # (AUTO) 4.4 10^3/uL (1.5-6.6); NEUTROPHILS % (AUTO) 64.9 %; PLT - PLATELET COUNT 142 10^3/uL (130-450); RED BLOOD COUNT 3.34 10^6/uL (4.70-6.10); RED CELL DISTRIBUTION WIDTH 12.8 % (12.0-15.0); WHITE BLOOD COUNT 6.7 x10^3/uL (4.8-10.8)
[2020-08-27 05:34] LABS: CALCIUM 8.6 mg/dL (8.5-10.3); CREATININE 1.4 mg/dL (0.6-1.2); MAGNESIUM 2.6 mg/dL (1.7-2.8); PHOSPHORUS 4.4 mg/dL (2.5-4.6); POTASSIUM 4.2 mmol/L (3.5-5.0)
[2020-08-27] MEDS: INSULIN ASPART 300 UNIT/3 ML PEN SUBQ SCH ×7 (08:19→21:08)
[2020-08-27] MEDS: LACTULOSE 10 GM/15 ML BOTTLE PO SCH ×5 (08:22→21:41)
[2020-08-27] MEDS: TAMSULOSIN 0.4 MG CAPSULE PO SCH (08:23)
[2020-08-27] MEDS: MULTIVITAMIN W/MINERALS TABLET PO SCH (08:23)
[2020-08-27] MEDS: ASPIRIN EC 81 MG TABLET PO SCH (08:23)
[2020-08-27] MEDS: buPROPion SR 150 MG TABLET PO SCH ×2 (08:23→21:39)
[2020-08-27] MEDS: SODIUM CHLORIDE FLUSH 0.9% 10 ML SYRINGE IVP SCH ×2 (08:24→16:10)
[2020-08-27] MEDS: PROCHLORPERAZINE 10 MG/2 ML VIAL IVP PRN (14:46)
--- NOTE | 2020-08-27 16:17 | XRAY Report ---
PROCEDURE: Abdomen 1 View X-Ray INDICATIONS: Vomiting. Pain. TECHNIQUE: 1 view of the abdomen were acquired. COMPARISON: None FINDINGS: Surgical changes and devices: None. Bowel: No pneumoperitoneum. The bowel gas pattern is normal. Soft tissues: No masses; visualized solid organ contours appear normal in size. No suspicious abdom inal calcifications. Bones: No suspicious bony abnormalities. Age-appropriate degenerative changes are seen. IMPRESSION: There is a nonobstructive bowel gas pattern seen. If the symptoms persist or worsen, please consider a dedicated follow-up CT for further evaluation. Reviewed by: Reese Richardson MD on 08/27/2020 3:16 PM AILYN Approved by: Reese Richardson MD on 08/27/2020 3:16 PM AILY[facility] Station ID: [id number]
--- NOTE | 2020-08-27 16:58 | PROVIDER PROGRESS NOTE ---
Subjective - Prog Note Date Prog Note Date: 08/27/20 - Subjective Subjective: He is feeling more fatigued and lethargic today as progressed. He has not had a bowel movement today despite increasing his lactulose. He did have an episode of vomiting after lunch. Current Medications - Current Medications Current Medications: Active Medications Acetaminophen (Acetaminophen 325 Mg Tablet) 650 mg PO Q4HR PRN PRN Reason: Pain 1 to 4 Last Admin: 08/26/20 23:45 Dose: 650 mg Documented by: Albuterol (Albuterol Neb 2.5 Mg/3 Ml) 2.5 mg INH RTQ4H PRN PRN Reason: Wheezing Aspirin (Aspirin Ec 81 Mg Tablet) 81 mg PO DAILY [facility] Last Admin: 08/27/20 08:23 Dose: 81 mg Documented by: Bupropion HCl (Bupropion Sr 150 Mg Tablet) 150 mg PO BID [facility] Last Admin: 08/27/20 08:23 Dose: 150 mg Documented by: Calamine (Calamine/Zinc Oxide 177 Ml Bottle) 1 applic TOP PRN PRN PRN Reason: SKIN CARE Last Admin: 08/27/20 16:10 Dose: 1 applic Documented by: Insulin Aspart (Insulin Aspart 300 Unit/3 Ml Pen) 35 unit SUBQ TIDWM [facility] Last Admin: 08/27/20 11:59 Dose: 35 unit Documented by: Insulin Aspart (Insulin Aspart 300 Unit/3 Ml Pen) 3 - 11 unit SUBQ 0800,1200,1700,2100 [facility]; Protocol Insulin Glargine (Insulin Glargine 300 Unit/3 Ml Pen) 80 unit SUBQ QPM [facility] Lactulose (Lactulose 10 Gm/15 Ml Bottle) 20 gm PO QID [facility] Last Admin: 08/27/20 12:53 Dose: 20 gm Documented by: Multivitamins/Minerals (Multivitamin W/Minerals Tablet) 1 tab PO DAILY [facility] Last Admin: 08/27/20 08:23 Dose: 1 tab Documented by: Oxycodone HCl (Oxycodone 5 Mg Tablet) 5 mg PO Q4HR PRN PRN Reason: Pain 5 to 7 Last Admin: 08/27/20 08:23 Dose: 5 mg Documented by: Prochlorperazine Edisylate (Prochlorperazine 10 Mg/2 Ml Vial) 10 mg IVP Q6HR PRN PRN Reason: Nausea / Vomiting Last Admin: 08/27/20 14:46 Dose: 10 mg Documented by: Rifaximin (Rifaximin 550 Mg Tablet) 550 mg PO BID [facility] Sodium Chloride (Sodium Chloride Flush 0.9% 10 Ml Syringe) 10 ml IVP PRN PRN PRN Reason: NEEDED PER PROVIDER ORDERS Sodium Chloride (Sodium Chloride Flush 0.9% 10 Ml Syringe) 10 ml IVP 0100,0900, 1700 [facility] Last Admin: 08/27/20 16:10 Dose: 10 ml Documented by: Tamsulosin HCl (Tamsulosin 0.4 Mg Capsule) 0.4 mg PO DAILY [facility] Last Admin: 08/27/20 08:23 Dose: 0.4 mg Documented by: Albuterol Sulfate [Proair Hfa Inhaler] 1 - 2 puffs INH Q4H PRN 11/13/16 Aspirin [Adult Low Dose Aspirin EC] 81 mg PO DAILY 11/13/16 Insulin Glargine,Hum.rec.anlog [Basaglar Kwikpen U-100] 65 units SUBQ DAILY PM 11/13/16 Insulin Regular, Human [Humulin R] 15 - 30 units SUBQ TIDWM 11/13/16 buPROPion HCL [Bupropion HCl Sr] 150 mg PO BID 02/15/20 Furosemide [Lasix] 40 mg PO DAILY 04/10/20 Objective - Vital Signs/Intake & Output Reviewed Vital Signs: Yes Vital Signs: Vital Signs x48h Temp Pulse Resp BP Pulse Ox 08/27/20 16:00 36.5 C 98 16 93/60 96 Intake & Output: Intake & Output 08/24/20 08/25/20 08/26/20 08/27/20 23:59 23:59 23:59 23:59 Intake Total 6239.333 1750 Output Total 1500 2835 2450 Balance -1500 3404.333 -700 - Objective General Appearance: positive: No acute distress, Lethargic Eyes Bilateral: positive: Normal inspection ENT: positive: ENT inspection nml Neck: positive: Nml inspection Respiratory: positive: No respiratory distress. negative: Wheezes, Rales Cardiovascular: positive: Regular rate & rhythm, No murmur Abdomen: positive: Non-tender, Other (Mild distention. Umbilical hernia noted.). negative: No distention, Tenderness, Guarding, Rebound Skin: positive: Warm, Dry Extremities: positive: No pedal edema Neurologic/Psychiatric: negative: Disoriented to person, Disoriented to place - Lab Results Fish Bones: 08/27/20 04:37 08/27/20 04:37 Other Labs: Lab Results x24hrs 08/27/20 08/27/20 08/27/20 Range/Units 16:39 11:12 07:27 WBC (4.8-10.8) x10^3/uL RBC (4.70-6.10) 10^6/uL Hgb (14.0-18.0) g/dL Hct (42.0-52.0) % MCV (80.0-94.0) fL MCH (27.0-31.0) pg MCHC (32.0-36.0) g/dL RDW (12.0-15.0) % Plt Count (130-450) 10^3/uL MPV (7.4-11.4) fL Neut # (Auto) (1.5-6.6) 10^3/uL Lymph # (Auto) (1.5-3.5) 10^3/uL Grand # (Auto) (0.0-1.0) 10^3/uL Eos # (Auto) (0.0-0.7) 10^3/uL Baso # (Auto) (0.0-0.1) 10^3/uL Absolute Nucleated RBC x10^3/uL Nucleated RBC % /100WBC Sodium (135-145) mmol/L Potassium (3.5-5.0) mmol/L Chloride (101-111) mmol/L Carbon Dioxide (21-32) mmol/L Anion Gap (6-13) BUN (6-20) mg/dL Creatinine (0.6-1.2) mg/dL Estimated GFR (MDRD) (>89) Glucose (70-100) mg/dL POC Whole Bld Glucose 197 H 294 H 362 H (70 - 100) mg/dL Calcium (8.5-10.3) mg/dL Phosphorus (2.5-4.6) mg/dL Magnesium (1.7-2.8) mg/dL Ammonia (7-35) umol/L 08/27/20 08/27/20 08/27/20 Range/Units 05:53 04:37 04:37 WBC 6.7 (4.8-10.8) x10^3/uL RBC 3.34 L (4.70-6.10) 10^6/uL Hgb 11.0 L (14.0-18.0) g/dL Hct 30.8 L (42.0-52.0) % MCV 92.2 (80.0-94.0) fL MCH 32.9 H (27.0-31.0) pg MCHC 35.7 (32.0-36.0) g/dL RDW 12.8 (12.0-15.0) % Plt Count 142 (130-450) 10^3/uL MPV 10.2 (7.4-11.4) fL Neut # (Auto) 4.4 (1.5-6.6) 10^3/uL Lymph # (Auto) 1.0 L (1.5-3.5) 10^3/uL Grand # (Auto) 1.1 H (0.0-1.0) 10^3/uL Eos # (Auto) 0.2 (0.0-0.7) 10^3/uL Baso # (Auto) 0.1 (0.0-0.1) 10^3/uL Absolute Nucleated RBC 0.00 x10^3/uL Nucleated RBC % 0.0 /100WBC Sodium 126 L (135-145) mmol/L Potassium 4.2 (3.5-5.0) mmol/L Chloride 92 L (101-111) mmol/L Carbon Dioxide 25 (21-32) mmol/L Anion Gap 9.0 (6-13) BUN 62 H (6-20) mg/dL Creatinine 1.4 H (0.6-1.2) mg/dL Estimated GFR (MDRD) 53 L (>89) Glucose 417 H (70-100) mg/dL POC Whole Bld Glucose (70 - 100) mg/dL Calcium 8.6 (8.5-10.3) mg/dL Phosphorus 4.4 (2.5-4.6) mg/dL Magnesium 2.6 (1.7-2.8) mg/dL Ammonia 88.9 H* (7-35) umol/L 08/26/20 08/26/20 Range/Units 23:35 20:39 WBC (4.8-10.8) x10^3/uL RBC (4.70-6.10) 10^6/uL Hgb (14.0-18.0) g/dL Hct (42.0-52.0) % MCV (80.0-94.0) fL MCH (27.0-31.0) pg MCHC (32.0-36.0) g/dL RDW (12.0-15.0) % Plt Count (130-450) 10^3/uL MPV (7.4-11.4) fL Neut # (Auto) (1.5-6.6) 10^3/uL Lymph # (Auto) (1.5-3.5) 10^3/uL Grand # (Auto) (0.0-1.0) 10^3/uL Eos # (Auto) (0.0-0.7) 10^3/uL Baso # (Auto) (0.0-0.1) 10^3/uL Absolute Nucleated RBC x10^3/uL Nucleated RBC % /100WBC Sodium (135-145) mmol/L Potassium (3.5-5.0) mmol/L Chloride (101-111) mmol/L Carbon Dioxide (21-32) mmol/L Anion Gap (6-13) BUN (6-20) mg/dL Creatinine (0.6-1.2) mg/dL Estimated GFR (MDRD) (>89) Glucose (70-100) mg/dL POC Whole Bld Glucose 495 H 492 H (70 - 100) mg/dL Calcium (8.5-10.3) mg/dL Phosphorus (2.5-4.6) mg/dL Magnesium (1.7-2.8) mg/dL Ammonia (7-35) umol/L ABX Reporting Has patient been on IV antibiotics over the past 48 hours?: No Assessment/Plan - Problem List (1) Hepatic encephalopathy Impression: I am concerned given his progressive fatigue today and the fact that his ammonia had increased this morning that he is the developing worsening encephalopathy. He has not had a bowel movement today and so we have increased his lactulose to 20 g 4 times daily. We will also add rifaximin. I did order abdominal x-ray to rule out obstruction and there was no evidence of obstruction. If he does not have a bowel movement then will consider a lactulose enema. Given his increasing fatigue and rising ammonia, I do not feel he is safe to discharge at this time. We will repeat an ammonia this evening and if it is rising then we will give a lactulose enema. He may need to ultimately increase his lactulose to 30 g 4 times daily. (2) Nausea & vomiting Impression: He did have another episode of emesis this afternoon. He was able to eat breakfast and lunch and then felt nauseous when he became to ambulate and vomited. I did order abdominal x-ray which did not reveal any evidence of obstruction. Abdominal exam is benign at this time. We will continue with antiemetics and diet as tolerated. We will obtain a CT if he continues to have episodes of emesis or abdominal pain. (3) Acute kidney injury Impression: This continues to improve as we hold his Lasix. His creatinine is 1.4 today. There may have been a component of obstructive uropathy given his urinary retention. We will continue to hold his Lasix but hold off on IV hydration given his adequate oral intake at this time. (4) Diabetes mellitus, insulin dependent (IDDM), uncontrolled Impression: His blood glucose was elevated overnight at about 400. We did increase his NovoLog with meals and his Lantus. We discussed once again the importance of compliance and he is motivated to change his diet. We will discharge him on a higher dose of Lantus we will keep the same dose of NovoLog with meals as I am worried if we increase both of those then he would become hypoglycemic if he truly does change his diet. (5) Hyperglycemia Impression: He was hyperglycemic yesterday evening and we adjust his insulin as mentioned above. His blood glucose is better controlled today. (6) Hyponatremia Impression: His sodium was worse this morning but this was due to hyperglycemia. He has chronic hyponatremia secondary to his cirrhosis. This is stable. (7) Urinary retention Impression: We will keep a Blunt catheter in place and we have started him on Flomax. He will need outpatient follow-up with his primary care provider and consideration of urology consult. (8) Ascites due to alcoholic cirrhosis Impression: He is scheduled for the paracentesis this Friday. 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 (9) Medical non-compliance Impression: We discussed the importance of compliance given his hyperglycemia poorly controlled diabetes. He is motivated to change this and will be taking his insulin more regularly and will be logging his blood sugars.
[2020-08-27] MEDS ORDERED: LACTULOSE 10 GM /15 ML UDC PR STA (19:11)
[2020-08-27] MEDS ORDERED: INSULIN GLARGINE 300 UNIT/3 ML PEN SUBQ SCH ×2 (21:00→23:00)
[2020-08-27] MEDS: rifAXIMin 550 MG TABLET PO SCH (21:39)
[2020-08-28] MEDS: SODIUM CHLORIDE FLUSH 0.9% 10 ML SYRINGE IVP SCH ×4 (04:02→23:44)
[2020-08-28 05:26] LABS: BASOPHILS # (AUTO) 0.1 10^3/uL (0.0-0.1); BASOPHILS % (AUTO) 1.2 %; EOSINOPHILS # (AUTO) 0.3 10^3/uL (0.0-0.7); EOSINOPHILS % (AUTO) 3.6 %; HCT - HEMATOCRIT 32.4 % (42.0-52.0); HGB - HEMOGLOBIN 11.5 g/dL (14.0-18.0); LYMPHOCYTES # (AUTO) 1.2 10^3/uL (1.5-3.5); LYMPHOCYTES % (AUTO) 16.2 %; MEAN CORPUSCULAR HEMOGLOBIN 32.9 pg (27.0-31.0); MEAN CORPUSCULAR HGB CONC 35.5 g/dL (32.0-36.0); MEAN CORPUSCULAR VOLUME 92.6 fL (80.0-94.0); MEAN PLATELET VOLUME 9.8 fL (7.4-11.4); MONOCYTES % (AUTO) 13.7 %; NEUTROPHILS # (AUTO) 4.9 10^3/uL (1.5-6.6); PLT - PLATELET COUNT 143 10^3/uL (130-450); RED CELL DISTRIBUTION WIDTH 13.1 % (12.0-15.0); WHITE BLOOD COUNT 7.5 x10^3/uL (4.8-10.8)
[2020-08-28 05:40] LABS: CALCIUM 8.7 mg/dL (8.5-10.3); CREATININE 1.5 mg/dL (0.6-1.2); MAGNESIUM 2.8 mg/dL (1.7-2.8); PHOSPHORUS 4.7 mg/dL (2.5-4.6); POTASSIUM 4.5 mmol/L (3.5-5.0)
[2020-08-28] MEDS: INSULIN ASPART 300 UNIT/3 ML PEN SUBQ SCH ×7 (08:11→21:23)
[2020-08-28] MEDS: ASPIRIN EC 81 MG TABLET PO SCH (09:26)
[2020-08-28] MEDS: buPROPion SR 150 MG TABLET PO SCH ×2 (09:26→21:19)
[2020-08-28] MEDS: TAMSULOSIN 0.4 MG CAPSULE PO SCH (09:26)
[2020-08-28] MEDS: MULTIVITAMIN W/MINERALS TABLET PO SCH (09:26)
[2020-08-28] MEDS: rifAXIMin 550 MG TABLET PO SCH ×2 (09:26→21:19)
[2020-08-28] MEDS: LACTULOSE 10 GM/15 ML BOTTLE PO SCH ×4 (09:54→21:20)
[2020-08-28] MEDS: oxyCODONE 5 MG TABLET PO PRN ×2 (10:27→18:03)
[2020-08-28] MEDS: PROCHLORPERAZINE 10 MG/2 ML VIAL IVP PRN (14:38)
[2020-08-28] MEDS ORDERED: LACTULOSE 10 GM/15 ML BOTTLE PR SCH (15:00)
--- NOTE | 2020-08-28 18:17 | PROVIDER PROGRESS NOTE ---
Subjective - Prog Note Date Prog Note Date: 08/28/20 - Subjective Subjective: He continues to have episodes of vomiting. He believes is related to the lactulose as once he consumes this, he began to feel nauseous shortly after and then has emesis. He reports no abdominal pain. He feels like he is pretty close to his baseline at the moment. He has not yet had a bowel movement today although he did have one yesterday evening. Current Medications - Current Medications Current Medications: Active Medications Acetaminophen (Acetaminophen 325 Mg Tablet) 650 mg PO Q4HR PRN PRN Reason: Pain 1 to 4 Last Admin: 08/26/20 23:45 Dose: 650 mg Documented by: Albuterol (Albuterol Neb 2.5 Mg/3 Ml) 2.5 mg INH RTQ4H PRN PRN Reason: Wheezing Aspirin (Aspirin Ec 81 Mg Tablet) 81 mg PO DAILY [facility] Last Admin: 08/28/20 09:26 Dose: 81 mg Documented by: Bupropion HCl (Bupropion Sr 150 Mg Tablet) 150 mg PO BID [facility] Last Admin: 08/28/20 09:26 Dose: 150 mg Documented by: Calamine (Calamine/Zinc Oxide 177 Ml Bottle) 1 applic TOP PRN PRN PRN Reason: SKIN CARE Last Admin: 08/27/20 16:10 Dose: 1 applic Documented by: Insulin Aspart (Insulin Aspart 300 Unit/3 Ml Pen) 35 unit SUBQ TIDWM [facility] Last Admin: 08/28/20 17:10 Dose: 35 unit Documented by: Insulin Aspart (Insulin Aspart 300 Unit/3 Ml Pen) 3 - 11 unit SUBQ 0800,1200,1700,2100 [facility]; Protocol Last Admin: 08/28/20 16:56 Dose: Not Given Documented by: Insulin Glargine (Insulin Glargine 300 Unit/3 Ml Pen) 80 unit SUBQ QPM [facility] Lactulose (Lactulose 10 Gm/15 Ml Bottle) 30 gm PO QID [facility] Last Admin: 08/28/20 18:03 Dose: 30 gm Documented by: Multivitamins/Minerals (Multivitamin W/Minerals Tablet) 1 tab PO DAILY [facility] Last Admin: 08/28/20 09:26 Dose: 1 tab Documented by: Oxycodone HCl (Oxycodone 5 Mg Tablet) 5 mg PO Q4HR PRN PRN Reason: Pain 5 to 7 Last Admin: 08/28/20 18:03 Dose: 5 mg Documented by: Prochlorperazine Edisylate (Prochlorperazine 10 Mg/2 Ml Vial) 10 mg IVP Q6HR PRN PRN Reason: Nausea / Vomiting Last Admin: 08/28/20 14:38 Dose: 10 mg Documented by: Rifaximin (Rifaximin 550 Mg Tablet) 550 mg PO BID [facility] Last Admin: 08/28/20 09:26 Dose: 550 mg Documented by: Sodium Chloride (Sodium Chloride Flush 0.9% 10 Ml Syringe) 10 ml IVP PRN PRN PRN Reason: NEEDED PER PROVIDER ORDERS Sodium Chloride (Sodium Chloride Flush 0.9% 10 Ml Syringe) 10 ml IVP 0100,0900,1700 [facility] Last Admin: 08/28/20 18:03 Dose: 10 ml Documented by: Tamsulosin HCl (Tamsulosin 0.4 Mg Capsule) 0.4 mg PO DAILY [facility] Last Admin: 08/28/20 09:26 Dose: 0.4 mg Documented by: Albuterol Sulfate [Proair Hfa Inhaler] 1 - 2 puffs INH Q4H PRN 11/13/16 Aspirin [Adult Low Dose Aspirin EC] 81 mg PO DAILY 11/13/16 Insulin Glargine,Hum.rec.anlog [Basaglar Kwikpen U-100] 65 units SUBQ DAILY PM 11/13/16 Insulin Regular, Human [Humulin R] 15 - 30 units SUBQ TIDWM 11/13/16 buPROPion HCL [Bupropion HCl Sr] 150 mg PO BID 02/15/20 Furosemide [Lasix] 40 mg PO DAILY 04/10/20 Objective - Vital Signs/Intake & Output Reviewed Vital Signs: Yes Vital Signs: Vital Signs x48h Temp Pulse Resp BP Pulse Ox 08/28/20 16:00 36.6 C 99 16 101/64 97 Intake & Output: Intake & Output 08/25/20 08/26/20 08/27/20 08/28/20 23:59 23:59 23:59 23:59 Intake Total 6239.333 2452 1160 Output Total 4209 3728 1698 1725 Balance -1500 3404.333 -198 -565 - Objective General Appearance: positive: No acute distress, Alert Eyes Bilateral: positive: Normal inspection, Conjunctivae nml ENT: positive: ENT inspection nml Neck: positive: Nml inspection Respiratory: positive: No respiratory distress. negative: Wheezes, Rales Cardiovascular: positive: Regular rate & rhythm. negative: Tachycardia Abdomen: positive: Non-tender, Other (Umbilical hernia noted). negative: No distention (Moderate distention), Tenderness Skin: positive: Warm, Dry Extremities: positive: No pedal edema Neurologic/Psychiatric: positive: Other (No asterixis.). negative: Disoriented to person, Disoriented to place - Lab Results Fish Bones: 08/28/20 05:17 08/28/20 05:17 Other Labs: Lab Results x24hrs 08/28/20 08/28/20 08/28/20 Range/Units 16:39 11:26 07:54 WBC (4.8-10.8) x10^3/uL RBC (4.70-6.10) 10^6/uL Hgb (14.0-18.0) g/dL Hct (42.0-52.0) % MCV (80.0-94.0) fL MCH (27.0-31.0) pg MCHC (32.0-36.0) g/dL RDW (12.0-15.0) % Plt Count (130-450) 10^3/uL MPV (7.4-11.4) fL Neut # (Auto) (1.5-6.6) 10^3/uL Lymph # (Auto) (1.5-3.5) 10^3/uL Rawlins # (Auto) (0.0-1.0) 10^3/uL Eos # (Auto) (0.0-0.7) 10^3/uL Baso # (Auto) (0.0-0.1) 10^3/uL Absolute Nucleated RBC x10^3/uL Nucleated RBC % /100WBC Sodium (135-145) mmol/L Potassium (3.5-5.0) mmol/L Chloride (101-111) mmol/L Carbon Dioxide (21-32) mmol/L Anion Gap (6-13) BUN (6-20) mg/dL Creatinine (0.6-1.2) mg/dL Estimated GFR (MDRD) (>89) Glucose (70-100) mg/dL POC Whole Bld Glucose 121 H 305 H 240 H (70 - 100) mg/dL Calcium (8.5-10.3) mg/dL Phosphorus (2.5-4.6) mg/dL Magnesium (1.7-2.8) mg/dL Ammonia (7-35) umol/L 08/28/20 08/28/20 08/28/20 Range/Units 05:17 05:17 05:17 WBC 7.5 (4.8-10.8) x10^3/uL RBC 3.50 L (4.70-6.10) 10^6/uL Hgb 11.5 L (14.0-18.0) g/dL Hct 32.4 L (42.0-52.0) % MCV 92.6 (80.0-94.0) fL MCH 32.9 H (27.0-31.0) pg MCHC 35.5 (32.0-36.0) g/dL RDW 13.1 (12.0-15.0) % Plt Count 143 (130-450) 10^3/uL MPV 9.8 (7.4-11.4) fL Neut # (Auto) 4.9 (1.5-6.6) 10^3/uL Lymph # (Auto) 1.2 L (1.5-3.5) 10^3/uL [place] # (Auto) 1.0 (0.0-1.0) 10^3/uL Eos # (Auto) 0.3 (0.0-0.7) 10^3/uL Baso # (Auto) 0.1 (0.0-0.1) 10^3/uL Absolute Nucleated RBC 0.00 x10^3/uL Nucleated RBC % 0.0 /100WBC Sodium 125 L (135-145) mmol/L Potassium 4.5 (3.5-5.0) mmol/L Chloride 88 L (101-111) mmol/L Carbon Dioxide 25 (21-32) mmol/L Anion Gap 12.0 (6-13) BUN 64 H (6-20) mg/dL Creatinine 1.5 H (0.6-1.2) mg/dL Estimated GFR (MDRD) 49 L (>89) Glucose 202 H (70-100) mg/dL POC Whole Bld Glucose (70 - 100) mg/dL Calcium 8.7 (8.5-10.3) mg/dL Phosphorus 4.7 H (2.5-4.6) mg/dL Magnesium 2.8 (1.7-2.8) mg/dL Ammonia 120.1 H* (7-35) umol/L 08/27/20 Range/Units 20:31 WBC (4.8-10.8) x10^3/uL RBC (4.70-6.10) 10^6/uL Hgb (14.0-18.0) g/dL Hct (42.0-52.0) % MCV (80.0-94.0) fL MCH (27.0-31.0) pg MCHC (32.0-36.0) g/dL RDW (12.0-15.0) % Plt Count (130-450) 10^3/uL MPV (7.4-11.4) fL Neut # (Auto) (1.5-6.6) 10^3/uL Lymph # (Auto) (1.5-3.5) 10^3/uL [place] # (Auto) (0.0-1.0) 10^3/uL Eos # (Auto) (0.0-0.7) 10^3/uL Baso # (Auto) (0.0-0.1) 10^3/uL Absolute Nucleated RBC x10^3/uL Nucleated RBC % /100WBC Sodium (135-145) mmol/L Potassium (3.5-5.0) mmol/L Chloride (101-111) mmol/L Carbon Dioxide (21-32) mmol/L Anion Gap (6-13) BUN (6-20) mg/dL Creatinine (0.6-1.2) mg/dL Estimated GFR (MDRD) (>89) Glucose (70-100) mg/dL POC Whole Bld Glucose 105 H (70 - 100) mg/dL Calcium (8.5-10.3) mg/dL Phosphorus (2.5-4.6) mg/dL Magnesium (1.7-2.8) mg/dL Ammonia (7-35) umol/L ABX Reporting Has patient been on IV antibiotics over the past 48 hours?: No Assessment/Plan - Problem List (1) Hepatic encephalopathy Impression: Although his ammonia level has increased today to over 120, clinically he does not appear to be encephalopathic and he feels back to his baseline. The plan was to discharge him today but unfortunately we have not been able to achieve an adequate lactulose regimen. He is at most having 1 bowel movement a day he continues to have vomiting related to the lactulose. We did give an enema today and he was able to have a bowel movement after this. We have already started him on rifaximin. I am concerned that if he is discharged then he will develop encephalopathy over next few days as he is not having 2-3 bowel movements a day and given the vomiting, may not take the lactulose. He has not always vomit after the lactulose but it tends to coincide when he receives lactulose with his meals and so we will try to give him lactulose in between meals. We will continue rifaximin but I am concerned this may not be affordable for him on discharge. We did discuss using rectal lactulose at home but he does not believe he will be able to administer it himself and he has no one to help him. We will continue to trend his ammonia but as mentioned above even though it is elevated, clinically he does not have encephalopathy. (2) Nausea & vomiting Impression: I believe this may be related to the fact that he receives lactulose and meals at the same time as throughout most of the day, he does not have emesis but after lunch he does. He has no abdominal pain and abdominal x-ray showed no evidence of obstruction. I do not feel a CT is warranted at this time. As mentioned above, we will try to spread out his lactulose and his meals. Continue with Compazine as needed. (3) Acute kidney injury Impression: His BUN and creatinine are stable. His renal function did improve with gentle IV hydration. We will discontinue his Lasix on discharge as I believe there was a component of hypovolemia. We will also discharge him with a Blunt in place given the urinary retention. (4) Diabetes mellitus, insulin dependent (IDDM), uncontrolled Impression: His blood sugars have been quite labile but overall improved. We will continue his current insulin regimen with Lantus 80 units in the evening 35 units of NovoLog with meals. He will be seeing binder coverstitch here at the [facility] once discharged. (5) Hyponatremia Impression: He has chronic hyponatremia secondary to his cirrhosis. Overall this is stable in the mid to high 120s. (6) Urinary retention Impression: We have started him on Flomax and he will be discharged with a Blunt catheter in place. He will need outpatient follow-up on discharge (7) Ascites due to alcoholic cirrhosis Impression: He is scheduled for paracentesis tomorrow. We will hope to discharge him so he can get this done at the [facility] clinic otherwise we will ask if radiology can perform this while he is here. (8) Medical non-compliance Impression: We discussed the importance of compliance and he is motivated to change his diet and take his insulin regularly. He will be seeing a binder coverstitch on discharge.
[2020-08-28] MEDS ORDERED: INSULIN GLARGINE 300 UNIT/3 ML PEN SUBQ SCH (21:00)
[2020-08-29 06:12] LABS: BASOPHILS # (AUTO) 0.1 10^3/uL (0.0-0.1); BASOPHILS % (AUTO) 1.3 %; EOSINOPHILS # (AUTO) 0.2 10^3/uL (0.0-0.7); EOSINOPHILS % (AUTO) 2.6 %; HCT - HEMATOCRIT 33.3 % (42.0-52.0); HGB - HEMOGLOBIN 11.6 g/dL (14.0-18.0); LYMPHOCYTES % (AUTO) 13.5 %; MEAN CORPUSCULAR HEMOGLOBIN 32.2 pg (27.0-31.0); MEAN CORPUSCULAR HGB CONC 34.8 g/dL (32.0-36.0); MEAN CORPUSCULAR VOLUME 92.5 fL (80.0-94.0); MONOCYTES % (AUTO) 14.4 %; NEUTROPHILS # (AUTO) 4.9 10^3/uL (1.5-6.6); NEUTROPHILS % (AUTO) 67.6 %; PLT - PLATELET COUNT 140 10^3/uL (130-450); RED CELL DISTRIBUTION WIDTH 13.1 % (12.0-15.0); WHITE BLOOD COUNT 7.2 x10^3/uL (4.8-10.8)
[2020-08-29 06:22] LABS: CALCIUM 8.6 mg/dL (8.5-10.3); CREATININE 1.9 mg/dL (0.6-1.2); POTASSIUM 4.6 mmol/L (3.5-5.0)
[2020-08-29] MEDS: INSULIN ASPART 300 UNIT/3 ML PEN SUBQ SCH ×5 (07:46→17:21)
[2020-08-29] MEDS ORDERED: SODIUM CHLORIDE 0.9% 1,000 ML IV SCH (08:40)
[2020-08-29] MEDS: rifAXIMin 550 MG TABLET PO SCH (08:55)
[2020-08-29] MEDS: buPROPion SR 150 MG TABLET PO SCH (08:55)
[2020-08-29] MEDS: SODIUM CHLORIDE FLUSH 0.9% 10 ML SYRINGE IVP SCH ×2 (08:55→17:21)
[2020-08-29] MEDS: MULTIVITAMIN W/MINERALS TABLET PO SCH (08:55)
[2020-08-29] MEDS: ASPIRIN EC 81 MG TABLET PO SCH (08:55)
[2020-08-29] MEDS: LACTULOSE 10 GM/15 ML BOTTLE PO SCH ×3 (08:57→17:39)
[2020-08-29] MEDS: TAMSULOSIN 0.4 MG CAPSULE PO SCH (08:59)
[2020-08-29] MEDS ORDERED: ALBUMIN 25% 12.5 GM/50 ML VIAL IV STA ×2 (10:35→10:36)
[2020-08-29] MEDS: ALBUMIN 25% 12.5 GM/50 ML VIAL IV SCH ×3 (11:05→13:02)
--- NOTE | 2020-08-29 11:36 | Ultrasound Report ---
PROCEDURE: Abdominal Paracentesis INDICATIONS: SOB, liver failure TECHNIQUE: The indications, alternatives, benefits, risks, and complications of the procedure were explained to the patient. Written informed consent was obtained and placed in the chart. The abdomen and pelvis were examined sonographically, and an appropriate site was chosen for paracentesis. The skin was pre pared and draped in the usual sterile fashion, and 1% lidocaine was infiltrated from the skin down th rough the peritoneal surface. A 19-gauge catheter-covered needle was then introduced into the perito valerie space, the catheter was advanced and the needle was withdrawn, and thereafter peritoneal fluid w as withdrawn. The catheter was then removed and a dressing was applied. The fluid was discarded if the clinician did not order diagnostic testing of the fluid. COMPARISON: None. FINDINGS: Access site: Right lower quadrant. Needle: One-Step centesis catheter with introducer needle. Fluid volume and description: 8.5 L Fluid sent for diagnostic testing: Not requested. Medications: 1% lidocaine for local anaesthesia. Complications: None. IMPRESSION: Successful ultrasound-guided paracentesis. Reviewed by: Maddi Mata MD on 08/29/2020 11:35 AM PDT Approved by: Maddi Mata MD on 08/29/2020 11:35 AM PDT Station ID: [id number]
[2020-08-29] MEDS ORDERED: INSULIN ASPART 300 UNIT/3 ML PEN SUBQ ONE (12:08)
[2020-08-29 13:12] LABS: ESTIMATED AVERAGE GLUCOSE 237 mg/dL (70-100); HEMOGLOBIN A1c% 9.9 % (4.27-6.07)
[2020-08-29 14:23] LABS: CALCIUM 9.1 mg/dL (8.5-10.3); CREATININE 1.8 mg/dL (0.6-1.2); POTASSIUM 4.4 mmol/L (3.5-5.0)
--- NOTE | 2020-08-29 14:56 | Discharge Plan ---
Discharge Plan Problem Reviewed?: Yes Disposition: Home, Self Care Condition: Poor Prescriptions: Tamsulosin [Flomax] 0.4 mg PO DAILY #30 cap Lactulose 30 gm PO TIDWM #100 bottle Diet: Diabetic Activity Restrictions: Activity as Tolerated Instruction Topics: Lactulose oral solution, Tamsulosin capsules Health Concerns: You were seen in the hospital because of elevated blood sugars. Your A1c is elevated at 9.9% which shows that your blood sugars have not been well controlled. it is important that you take your insulin as prescribed and log your blood sugars on a regular basis, make medical compliant for your medical schedule, control of your sugar intake in your diet, so that your primary care provider can help adjust her insulin. Please make sure to check your blood sugars before every meals and at night. You may continue followup with your PCP for management of your diabetes. You are also found to be quite lethargic and sleepy after admission in the hospital, and we checked an ammonia level which was quite elevated. This can cause fatigue and confusion. This becomes elevated in people who have liver disease as the liver cannot cleared appropriately. We have prescribed you a new medication called lactulose which you will need to take 3 times a day. You may followup with your PCP in one week, recheck Ammonia level and adjust the medication as needed with your PCP. You may discuss with your PCP for advance care plan as well. You also have had urinary retention and you have had over a liter in your bladder twice. we try again today but you still can not urinate. We placed a Blunt catheter in place on discharge. You may followup with urologist as out-pt. Please also stop taking your Lasix as we believe you are a little bit dehydrated and this medication has affected your kidneys as well. At the same time you have twice Paracentesis per week in [facility]. You may resume [facility] clinic schedule for your Paracentesis and Albumin infusion. Plan of Treatment: as the above Care Goals: The goal is to help control your blood sugars, and to prevent your ammonia from becoming elevated again, discuss the advanced care plan with your PCP Assessment: The patient expressed understanding of the treatment plan. Additional Instructions or Follow Up instructions: Please follow-up with your primary care provider next week, and recheck your ammonia level, and manage your diabetes. Please return to the emergency department if your blood sugars are persistently elevated or if you become more lethargic or confused. No Smoking: If you smoke, Please STOP! Call for help. Follow-up with: Montrell Brady MD [Primary Care Provider] -
--- NOTE | 2020-08-29 18:42 | DISCHARGE SUMMARY ---
Discharge Summary Admit Date: 08/25/20 Discharge Date: 08/29/20 Discharging Provider: Herbert Chavez Primary Care Provider: Montrell Briceno Condition at Discharge: Poor Discharge Disposition: 01 Home, Self Care Discharge Facility Name: home - DIAGNOSES Discharge Diagnoses with Status of Each Condition: (1) Hepatic encephalopathy resolved. pt is alert and oriented plus 4 today. His ammonia level is down to 56 from over 200 after admission. Pt tolerated Lactulose without nausea or vomiting today and pt has bowel movements as well. Since pt tolerate Lactulose and his insurance is difficult to pay Rifaximin for him. pt is prescribed Lactulose and followup with his PCP in one week to recheck Ammonia level and adjust his medications as needed. pt agreed the plan and he tolerate Lactulose well. pt want to be d/c home on today. (2)alcoholic liver failure pt has hx of alcoholic liver failure. he was scheduled to have Paracentesis and albumin infusion twice per week, ordered by his PCP. pt had Paracentesis and albumin infusion in the morning before he was d/c. Discussed the advanced care plan with pt although pt is not focus on this. Now pt focus on possible Liver transplantation plan as he report he discussed with [facility]. At this time, pt tolerated Paracentesis very well. he had 8.5 liter of fluid out from Paracentesis on today morning. pt denies fever, abdominal pain. pt is Hemodynamic stable condition. (3) Nausea & vomiting resolved. Patient tolerated regular diet without nausea or vomiting (4) Acute kidney injury stable. his creatinine is 1.8. pt had 1.7 in the previous. advise pt keep hydration at home. Unfortunately patient had history of liver failure which can affect kidney function. pt's home Lasix is hold. he was scheduled to have Paracentesis and albumin infusion twice per week. About 8 liter of body fluid was removed from Paracentesis. (5) Diabetes mellitus, insulin dependent (IDDM), uncontrolled pt's glucose is controlled now. his glucose is 118 now. Main issue for his diabetes control, it is medical non-compliance. pt report he was not compliance to insulin dosage and ate too much sugar in the diet. Educated pt for the importance of medical compliance, encourage pt for medical compliance and record glucose level, and present to his PCP for further management. At this point, pt may resume his home medication schedule, followup with his PCP for further diabetes management (6) Hyponatremia improved as his baseline. pt has Na 127 on d/c (7) Urinary retention nurse d/c the Blunt again and tried let pt urinate by his own, but unfortunately it is not Successful, Patient still cannot urinated by himself. pt started on Flomax and discharged with a Blunt catheter in place. advised pt followup with urologist as outpatient (8) Ascites due to alcoholic cirrhosis pt had Paracentesis And albumin infusion on today. Patient tolerated procedure well. Patient may resume paracentesis and albumin infusion in [facility] as his scheduled (9) Medical non-compliance We discussed the importance of compliance and he is motivated to change his diet, and check glucose level and take his insulin regularly. - HPI History of Present Illness: This is a 49-year-old male with a PMH significant for alcohol abuse, alcoholic cirrhosis with ascites which required twice Paracentesis and albumin infusion, and poor controlled type 2 diabetes presents ER for poor controlled diabetes and severe hyperglycemia. Patient states he was at the [facility] today for a paracentesis and an albumin infusion. Patient reports he had light headedness and nausea as his baseline after he had Paracentesis. He reports 8.7 liters of fluid removed today. Pt also report he was tired and fatigue for his routine twice per week of paracentesis. [facility] clinic staff told pt his blood sugar was over 500 and advise pt come ER. pt report he has been generally poor compliance with both insulin and diabetic diet. Lab test show there was no evidence of DKA. ER provider gave pt 10 units of insulin which only made slight change in his blood glucose, and another 15 units IV of insulin was given again, but blood sugar was still over 500. Medical team was consulted for poor control diabetic and severe hyperglycemia. Discussed the care goal with the patient, patient requests full code - HOSPITAL COURSE Hospital Course: Patient was admitted from [facility] clinic because of severe hyperglycemia. Patient was found glucose level was over 500. Patient also develop confused, lethargic in the hospital. Patient was found his ammonia level was over 200. Patient was found to have Medical noncompliance which likely caused patient uncontrolled diabetic, Hyperglycemia. Patient was treated with insulin with sliding scale. Patient was also treated with lactulose. After treatment patient's ammonia level is down to the 56. Patient has no more nausea and vomiting. Patient tolerated lactulose. Patient's glucose level is under of control after treatment. Patient also had paracentesis and albumin infusion in the day for discharge. Patient was discharged in hemodynamically stable condition - ALLERGIES Allergies/Adverse Reactions: Allergies Allergy/AdvReac Type Severity Reaction Status Date / Time lisinopril Allergy Unknown Verified 08/25/20 12:23 - MEDICATIONS Home Medications: Ambulatory Orders Medication Instructions Recorded Confirmed Albuterol Sulfate [Proair Hfa 1 - 2 puffs INH Q4H PRN 11/13/16 08/25/20 Inhaler] Aspirin [Adult Low Dose Aspirin EC] 81 mg PO DAILY 11/13/16 08/25/20 Insulin Glargine,Hum.rec.anlog 65 units SUBQ DAILY PM 11/13/16 08/25/20 [Basaglar Kwikpen U-100] Insulin Regular, Human [Humulin R] 15 - 30 units SUBQ TIDWM 11/13/16 08/25/20 buPROPion HCL [Bupropion HCl Sr] 150 mg PO BID 02/15/20 08/25/20 Clotrimazole/Betamethasone Crm 1 applic TOP BID #30 g 03/04/20 08/25/20 [Lotrisone Cream] Multivitamin W/Minerals [Theragran 1 tab PO DAILY #30 tablet 03/29/20 08/25/20 M] Lactulose 30 gm PO TIDWM #100 bottle 08/29/20 Tamsulosin [Flomax] 0.4 mg PO DAILY #30 cap 08/29/20 - PHYSICAL EXAM AT DISCHARGE General Appearance: positive: No acute distress, Alert. negative: Lethargic Eyes Bilateral: positive: Normal inspection, PERRL, No lid inflammation ENT: positive: ENT inspection nml, No signs of dehydration. negative: Purulent nasal drainage Neck: positive: Nml inspection, Trachea midline. negative: Thyromegaly, Tracheal deviation Respiratory: positive: Chest non-tender, No respiratory distress. negative: Wheezes, Rales Cardiovascular: positive: Regular rate & rhythm, No murmur. negative: Tachycardia, Bradycardia, Systolic murmur, Diastolic murmur Peripheral Pulses: positive: 2+ Abdomen: positive: Non-tender, Nml bowel sounds, No distention. negative: Tenderness, Guarding, Rebound Back: positive: Nml inspection Skin: positive: Color nml, Warm, Dry. negative: Cyanosis, Diaphoresis Extremities: positive: Non-tender, Full ROM, Nml appearance. negative: Calf tenderness Neurologic/Psychiatric: positive: Oriented x3, Motor nml, Sensation nml, Mood/affect nml. negative: Weakness, Sensory loss, Facial droop, Slurred/abnml speech, Depressed mood/affect - LABS Result Diagrams: 08/29/20 06:05 08/29/20 14:08 - FOLLOW UP Follow Up: You were seen in the hospital because of elevated blood sugars. Your A1c is elevated at 9.9% which shows that your blood sugars have not been well controlled. it is important that you take your insulin as prescribed and log your blood sugars on a regular basis, make medical compliant for your medical schedule, control of your sugar intake in your diet, so that your primary care provider can help adjust her insulin. Please make sure to check your blood sugars before every meals and at night. You may continue followup with your PCP for management of your diabetes. You are also found to be quite lethargic and sleepy after admission in the hospital, and we checked an ammonia level which was quite elevated. This can cause fatigue and confusion. This becomes elevated in people who have liver disease as the liver cannot cleared appropriately. We have prescribed you a new medication called lactulose which you will need to take 3 times a day. You may followup with your PCP in one week, recheck Ammonia level and adjust the medication as needed with your PCP. You may discuss with your PCP for advance care plan as well. You also have had urinary retention and you have had over a liter in your bladder twice. we try again today but you still can not urinate. We placed a Blunt catheter in place on discharge. You may followup with urologist as out-pt. Please also stop taking your Lasix as we believe you are a little bit dehydrated and this medication has affected your kidneys as well. At the same time you have twice Paracentesis per week in [facility]. You may resume [facility] schedule for your Paracentesis and Albumin infusion. Please follow-up with your primary care provider next week, and recheck your ammonia level, and manage your diabetes. Please return to the emergency department if your blood sugars are persistently elevated or if you become more lethargic or confused. - TIME SPENT Time Spent in Discharge (Minutes): 30
[2020-08-29] MEDS ORDERED: LIDOCAINE 2% URO-JET 5 ML SYRINGE UR ONE (18:51)
[2020-08-29 20:16] VITALS: BP 121/66
[2020-08-29] MEDS ORDERED: INSULIN GLARGINE 300 UNIT/3 ML PEN SUBQ SCH (21:00)
[2020-08-30] MEDS ORDERED: INSULIN ASPART 300 UNIT/3 ML PEN SUBQ SCH (08:00)
== END 2020-08-29 19:53 | disposition home or self-care (01) | DRG 442 ==
LOC: ED 12:17 → MS2 15:12 → OBSVTOIN 08-27 17:04
PROVIDERS: ADMIT Internal Medicine; ATTEND Nurse Practitioner Gerontology
PROC: 0W9G3ZZ Drainage of Peritoneal Cavity, Percutaneous Approach (ICD-10-PCS; principal; 2020-08-29)
DX: K72.90 Hepatic failure, unspecified without coma (principal); N17.9 Acute kidney failure, unspecified; E87.1 Hypo-osmolality and hyponatremia; E11.65 Type 2 diabetes mellitus with hyperglycemia; R11.2 Nausea with vomiting, unspecified; Z79.4 Long term (current) use of insulin; R33.9 Retention of urine, unspecified; K70.31 Alcoholic cirrhosis of liver with ascites; T38.3X6A Underdosing of insulin and oral hypoglycemic [antidiabetic] drugs, initial encounter; Z91.128 Patient's intentional underdosing of medication regimen for other reason; F10.11 Alcohol abuse, in remission; Z87.891 Personal history of nicotine dependence; E86.0 Dehydration; Z20.822 Contact with and (suspected) exposure to COVID-19
CPT/HCPCS: 0202U; 36415; 49083; 51701; 74018; 80048; 80053; 82009; 82140; 83036; 83605; 83690; 83735; 84100; 85025; 96374; 96375; 96376; 99283; 99285; A9270; G0378; J1170; J1815; J7120; J8499; P9047; 83880

== ENCOUNTER 2020-09-01 08:34 | Outpatient (CLI) | payer MEDICAID ==
[2020-09-01 09:02] LABS: INR 1.2 (0.8-1.2); PT - PROTHROMBIN TIME 12.8 secs (9.9-12.6)
[2020-09-01 09:04] LABS: BASOPHILS # (AUTO) 0.1 10^3/uL (0.0-0.1); EOSINOPHILS # (AUTO) 0.1 10^3/uL (0.0-0.7); EOSINOPHILS % (AUTO) 1.3 %; HCT - HEMATOCRIT 31.7 % (42.0-52.0); HGB - HEMOGLOBIN 11.4 g/dL (14.0-18.0); LYMPHOCYTES # (AUTO) 1.1 10^3/uL (1.5-3.5); LYMPHOCYTES % (AUTO) 13.6 %; MEAN CORPUSCULAR HEMOGLOBIN 32.5 pg (27.0-31.0); MEAN CORPUSCULAR VOLUME 90.3 fL (80.0-94.0); MEAN PLATELET VOLUME 9.9 fL (7.4-11.4); MONOCYTES # (AUTO) 1.3 10^3/uL (0.0-1.0); MONOCYTES % (AUTO) 15.3 %; NEUTROPHILS # (AUTO) 5.6 10^3/uL (1.5-6.6); NEUTROPHILS % (AUTO) 68.1 %; PLT - PLATELET COUNT 182 10^3/uL (130-450); RED BLOOD COUNT 3.51 10^6/uL (4.70-6.10); RED CELL DISTRIBUTION WIDTH 13.2 % (12.0-15.0); WHITE BLOOD COUNT 8.2 x10^3/uL (4.8-10.8)
[2020-09-01 09:32] LABS: CALCIUM 9.1 mg/dL (8.5-10.3); CREATININE 2.5 mg/dL (0.6-1.2); POTASSIUM 5.5 mmol/L (3.5-5.0)
--- NOTE | 2020-09-01 13:03 | Ultrasound Report ---
PROCEDURE: Abdominal Paracentesis INDICATIONS: ALCOHOLIC CIRRHOSIS OF LIVER W/ASCITES TECHNIQUE: The indications, alternatives, benefits, risks, and complications of the procedure were explained to the patient. Written informed consent was obtained and placed in the chart. The abdomen and pelvis were examined sonographically, and an appropriate site was chosen for paracentesis. The skin was pre pared and draped in the usual sterile fashion, and 1% lidocaine was infiltrated from the skin down th rough the peritoneal surface. A 19-gauge catheter-covered needle was then introduced into the perito valerie space, the catheter was advanced and the needle was withdrawn, and thereafter peritoneal fluid w as withdrawn. The catheter was then removed and a dressing was applied. The fluid was discarded if the clinician did not order diagnostic testing of the fluid. COMPARISON: Ultrasound guided paracentesis, 08/29/2020. FINDINGS: Access site: Right lower quadrant Needle: One-Step centesis catheter with introducer needle. Fluid volume and description: 7.8 m, cloudy Fluid sent for diagnostic testing: Not requested by referring physician. Medications: 1% lidocaine for local anaesthesia. Complications: None. IMPRESSION: Successful ultrasound-guided paracentesis. Reviewed by: Maddi Mata MD on 09/01/2020 1:02 PM PDT Approved by: Maddi Mata MD on 09/01/2020 1:02 PM PDT Station ID: [id number]
== END 2020-09-01 08:35 | disposition home or self-care (01) ==
LOC: DI 08:34
PROVIDERS: ATTEND Internal Medicine
DX: K70.31 Alcoholic cirrhosis of liver with ascites (principal)
CPT/HCPCS: 36415; 49083; 80048; 85025; 85610

== ENCOUNTER 2020-09-01 13:00 | Inpatient (IN) | payer MEDICAID ==
[2020-09-01] MEDS ORDERED: ONDANSETRON 4 MG/2 ML VIAL IVP STA (14:07)
[2020-09-01] MEDS ORDERED: SODIUM CHLORIDE 0.9% 1,000 ML IV STA (14:07)
[2020-09-01 14:24] LABS: BASOPHILS # (AUTO) 0.1 10^3/uL (0.0-0.1); BASOPHILS % (AUTO) 0.9 %; EOSINOPHILS # (AUTO) 0.1 10^3/uL (0.0-0.7); EOSINOPHILS % (AUTO) 1.3 %; HGB - HEMOGLOBIN 9.8 g/dL (14.0-18.0); LYMPHOCYTES # (AUTO) 0.8 10^3/uL (1.5-3.5); MEAN CORPUSCULAR HEMOGLOBIN 32.5 pg (27.0-31.0); MEAN CORPUSCULAR HGB CONC 36.3 g/dL (32.0-36.0); MEAN CORPUSCULAR VOLUME 89.4 fL (80.0-94.0); MEAN PLATELET VOLUME 9.6 fL (7.4-11.4); MONOCYTES # (AUTO) 1.2 10^3/uL (0.0-1.0); NEUTROPHILS # (AUTO) 4.6 10^3/uL (1.5-6.6); NEUTROPHILS % (AUTO) 68.4 %; PLT - PLATELET COUNT 140 10^3/uL (130-450); RED BLOOD COUNT 3.02 10^6/uL (4.70-6.10); WHITE BLOOD COUNT 6.8 x10^3/uL (4.8-10.8)
[2020-09-01 14:29] LABS: INR 1.3 (0.8-1.2)
[2020-09-01 14:36] LABS: PARTIAL THROMBOPLASTIN TIME 30.5 secs (24.9-33.3)
[2020-09-01] MEDS ORDERED: LACTULOSE 10 GM /15 ML UDC PO STA (14:55)
[2020-09-01 14:59] LABS: ALBUMIN 3.7 g/dL (3.2-5.5); ALBUMIN/GLOBULIN RATIO 1.8 (1.0-2.2); BILIRUBIN,TOTAL 2.3 mg/dL (0.2-1.0); CALCIUM 8.9 mg/dL (8.5-10.3); CREATININE 2.3 mg/dL (0.6-1.2); MAGNESIUM 3.1 mg/dL (1.7-2.8); POTASSIUM 5.2 mmol/L (3.5-5.0); TOTAL PROTEIN 5.8 g/dL (6.7-8.2)
--- NOTE | 2020-09-01 15:20 | ED Physician Documentation ---
PD HPI ALTERED MENTAL STATUS - Stated complaint Stated Complaint: NAUSEA/TREMORS/LOW SODIUM - Chief complaint Chief Complaint: General - History obtained from History obtained from: Patient - History of Present Illness Timing - onset: Today Timing - duration: Days (he states he is having balance problems, general weakness, and nausea starting last evening and worse today. No change with paracentesis done at [facility] this morning.) Timing - details: Gradual onset, Still present Quality / character: Confused Associated symptoms: General weakness. No: Fever, Headache, Dyspnea Contributing factors: Other (liver failure with ascites from liver CA. The tumor location prohibits TIPS, per patient. Gets paracentesis twice weekly in [facility].). No: Recent illness, Recent injury Basline status: Alert and oriented X 3, Disoriented Similar symptoms before: Diagnosis (hepatic encephalopathy and hyponatremia as prior causes.) Recently seen: Admitted (Recent admission for weakness, confusion and Dx with elevated ammonia and low sodium. Improved in hospital.) Review of Systems Constitutional: denies: Fever, Chills Nose: denies: Rhinorrhea / runny nose, Congestion Throat: denies: Sore throat Respiratory: denies: Cough GI: reports: Nausea. denies: Vomiting, Diarrhea, Bloody / black stool Neurologic: reports: Generalized weakness, Altered mental status. denies: Focal weakness, Numbness, Headache PD PAST MEDICAL HISTORY - Past Medical History Past Medical History: Yes Cardiovascular: Hypertension, High cholesterol Respiratory: Asthma Neuro: Peripheral neuropathy Endocrine/Autoimmune: Type 2 diabetes GI: Cirrhosis : Retention, Indwelling catheter HEENT: Chronic vision loss Psych: Depression, Anxiety Musculoskeletal: Osteoarthritis Derm: Psoriasis, Other - Past Surgical History Past Surgical History: Yes Ortho: Arthroscopic surgery - Present Medications Home Medications: Ambulatory Orders Medication Instructions Recorded Confirmed Albuterol Sulfate [Proair Hfa 1 - 2 puffs INH Q4H PRN 11/13/16 08/25/20 Inhaler] Aspirin [Adult Low Dose Aspirin EC] 81 mg PO DAILY 11/13/16 08/25/20 Insulin Glargine,Hum.rec.anlog 65 units SUBQ DAILY PM 11/13/16 08/25/20 [Basaglar Kwikpen U-100] Insulin Regular, Human [Humulin R] 15 - 30 units SUBQ TIDWM 11/13/16 08/25/20 buPROPion HCL [Bupropion HCl Sr] 150 mg PO BID 02/15/20 08/25/20 Clotrimazole/Betamethasone Crm 1 applic TOP BID #30 g 03/04/20 08/25/20 [Lotrisone Cream] Multivitamin W/Minerals [Theragran 1 tab PO DAILY #30 tablet 03/29/20 08/25/20 M] Lactulose 30 gm PO TIDWM #100 bottle 08/29/20 Tamsulosin [Flomax] 0.4 mg PO DAILY #30 cap 08/29/20 - Allergies Allergies/Adverse Reactions: Allergies Allergy/AdvReac Type Severity Reaction Status Date / Time lisinopril Allergy Unknown Verified 09/01/20 13:22 - Social History Does the pt smoke?: No Smoking Status: Never smoker Does the pt drink ETOH?: No Does the pt have substance abuse?: No - Immunizations Immunizations are current?: Yes - POLST Patient has POLST: No PD ED PE NORMAL - Vitals Vital signs reviewed: Yes - General General: Well developed/nourished. No: Alert and oriented X 3 (responds to questions but slower, and oriented to person and place. ) - HEENT HEENT: Pharynx benign - Neck Neck: Supple, no meningeal sign, No adenopathy - Cardiac Cardiac: RRR, No murmur - Respiratory Respiratory: Clear bilaterally - Abdomen Abdomen: Soft, Non tender, Other (not tender and only mildly distended (had paracentesis just COOK PRESSURE).) - Derm Derm: Normal color, Warm and dry - Extremities Extremities: No calf tenderness / cord, Other (1+ edema in both lower legs. ) - Neuro Neuro: No motor deficit, No sensory deficit Results - Vitals Vitals: Vital Signs - 24 hr 09/01/20 09/01/20 13:18 13:49 Temperature 36.2 C L Heart Rate 81 85 Respiratory 16 15 Rate Blood Pressure 92/54 L 118/71 O2 Saturation 100 99 Oxygen O2 Source Room air - Labs Labs: Laboratory Tests 09/01/20 09/01/20 09/01/20 14:12 14:12 14:12 WBC 6.8 RBC 3.02 L Hgb 9.8 L Hct 27.0 L MCV 89.4 MCH 32.5 H MCHC 36.3 H RDW 13.0 Plt Count 140 MPV 9.6 Neut # (Auto) 4.6 Lymph # (Auto) 0.8 L [place] # (Auto) 1.2 H Eos # (Auto) 0.1 Baso # (Auto) 0.1 Absolute Nucleated RBC 0.00 Nucleated RBC % 0.0 PT 14.0 H INR 1.3 H APTT 30.5 Sodium 120 L* Potassium 5.2 H Chloride 83 L Carbon Dioxide 23 Anion Gap 14.0 H BUN 100 H* Creatinine 2.3 H Estimated GFR (MDRD) 30 L Glucose 265 H Calcium 8.9 Magnesium 3.1 H Total Bilirubin 2.3 H AST 41 ALT 29 Alkaline Phosphatase 75 Ammonia Total Protein 5.8 L Albumin 3.7 Globulin 2.1 Albumin/Globulin Ratio 1.8 Lipase 110 H 09/01/20 14:19 WBC RBC Hgb Hct MCV MCH MCHC RDW Plt Count MPV Neut # (Auto) Lymph # (Auto) [place] # (Auto) Eos # (Auto) Baso # (Auto) Absolute Nucleated RBC Nucleated RBC % PT INR APTT Sodium Potassium Chloride Carbon Dioxide Anion Gap BUN Creatinine Estimated GFR (MDRD) Glucose Calcium Magnesium Total Bilirubin AST ALT Alkaline Phosphatase Ammonia 151.8 H* Total Protein Albumin Globulin Albumin/Globulin Ratio Lipase PD MEDICAL DECISION MAKING - ED course Complexity details: considered differential (increased weakness and confusion today. Labs this morning showed sodium 120 (results gotten back after paracentesis that had been scheduled). Referred to ER after the tap for further eval. ), d/w patient Departure - Departure Disposition: 66 [facility] DC/Xfer Clinical Impression: Hepatic encephalopathy, Hyponatremia Altered mental status Qualifiers: Altered mental status type: stupor Qualified Code(s): R40.1 - Stupor Condition: Stable Record reviewed to determine appropriate education?: Yes Discharge Date/Time: 09/01/20 17:22
--- NOTE | 2020-09-01 15:43 | HISTORY & PHYSICAL EXAMINATION ---
Chief Complaint - Chief Complaint Chief Complaint: confused History of Present Illness - Admitted From Admitted From:: ER - History Obtained From Records Reviewed: [facility] History obtained from: pt Exam Limitations: confused - History of Present Illness HPI Comment/Other: This is a 50-year-old male with a PMH significant for alcohol abuse, alcoholic cirrhosis with ascites which required twice Paracentesis and albumin infusion, Hepatic encephalopathy in the past, hyponatremia, and poor controlled type 2 diabetes who presents ER for nausea, weak and some confused. Patient Was seen in the [facility] clinic in this morning for parasenthesis and albumnin infusion. Patient was reported to have nausea, weakness, and confused after Paracentesis. Pt is poor historian. But he did report "some time I just take a little bit of Lac tulose." Routine laboratory tests show patient had an ammonia level over 150, BUN 100, creatinine 2.3, sodium 120, glucose 265. pt was d/c to home 5 days. Patient was found to have hepatic encephalopathy. pt was prescribed Lactulose to home. pt has hx of medical noncompliance. Given above medical condition, medical team was consulted for the admission. History - Past Medical History Cardiovascular: reports: Hypertension, High cholesterol Respiratory: reports: Asthma Neuro: reports: Peripheral neuropathy Endocrine/Autoimmune: reports: Type 2 diabetes GI: reports: Cirrhosis : reports: Retention, Indwelling catheter HEENT: reports: Chronic vision loss Psych: reports: Depression, Anxiety Musculoskeletal: reports: Osteoarthritis Derm: reports: Psoriasis, Other MRSA Hx?: No - Past Surgical History Ortho: reports: Arthroscopic surgery - Family & Social History Family History: Mother: Alive and Well Family History Comment/Other: pt is living with his mother and he is caregiver of his mother. no inherited disease. Living Situation: With family Social History Notes: Patient denies history of cigarette smoking, he report he last drank alcohol is 8 months ago. - Substance History Use: Uses substance without health or social issues: Tobacco (hx of 25 year smoking), Alcohol (beer; sober since prioir admit) - POLST Patient has POLST: No Meds/Allgy - Home Medications Home Medications: Ambulatory Orders Medication Instructions Recorded Confirmed Albuterol Sulfate [Proair Hfa 1 - 2 puffs INH Q4H PRN 11/13/16 08/25/20 Inhaler] Aspirin [Adult Low Dose Aspirin EC] 81 mg PO DAILY 11/13/16 08/25/20 Insulin Glargine,Hum.rec.anlog 65 units SUBQ DAILY PM 11/13/16 08/25/20 [Basaglar Kwikpen U-100] Insulin Regular, Human [Humulin R] 15 - 30 units SUBQ TIDWM 11/13/16 08/25/20 buPROPion HCL [Bupropion HCl Sr] 150 mg PO BID 02/15/20 08/25/20 Clotrimazole/Betamethasone Crm 1 applic TOP BID #30 g 03/04/20 08/25/20 [Lotrisone Cream] Multivitamin W/Minerals [Theragran 1 tab PO DAILY #30 tablet 03/29/20 08/25/20 M] Lactulose 30 gm PO TIDWM #100 bottle 08/29/20 Tamsulosin [Flomax] 0.4 mg PO DAILY #30 cap 08/29/20 - Allergies Allergies/Adverse Reactions: Allergies Allergy/AdvReac Type Severity Reaction Status Date / Time lisinopril Allergy Unknown Verified 09/01/20 13:22 Review of Systems - Constitutional Constitutional: reports: Fatigue, Weakness. denies: Fever, Chills - Eyes Eyes: denies: Pain - Ears, Nose & Throat Ears, Nose & Throat: denies: Ear pain, Nosebleeds - Cardiovascular Cariovascular: denies: Chest pain, Syncope, Exertional dyspnea, Decr. exercise tolerance - Respiratory Respiratory: denies: Cough, Sputum production, SOB at rest, SOB with exertion - Gastrointestinal Gastrointestinal: reports: Nausea. denies: Abdominal pain, Diarrhea, Vomiting - Genitourinary Genitourinary: denies: Dysuria - Musculoskeletal Musculoskeletal: denies: Muscle pain - Integumentary Integumentary: denies: Rash - Neurological Neurological: denies: Focal weakness, Numbness, Seizures, Slurred speech - Psychiatric Psychiatric: denies: Depression - Endocrine Endocrine: denies: Polyuria - Hematologic/Lymphatic Hematologic/Lymphatic: denies: Recurrent infections - Other Findings Other Findings: pt is poor historian Prior Level of Functionality: Patient is living with his mother together Exam - Vital Signs Vital Signs: Vital Signs x48h Temp Pulse Resp BP Pulse Ox 09/01/20 13:49 85 15 118/71 99 09/01/20 13:18 36.2 C L 81 16 92/54 L 100 - Physical Exam General Appearance: positive: No acute distress, Alert. negative: Lethargic Eyes Bilateral: positive: Normal inspection, PERRL, No lid inflammation ENT: positive: ENT inspection nml. negative: Purulent nasal drainage Neck: positive: Nml inspection, Trachea midline. negative: Thyromegaly, Tracheal deviation Respiratory: positive: Chest non-tender, No respiratory distress. negative: Wheezes, Rales Cardiovascular: positive: Regular rate & rhythm, No murmur. negative: Tachycardia, Bradycardia, Systolic murmur, Diastolic murmur Peripheral Pulses: positive: 2+ Abdomen: positive: Non-tender, Nml bowel sounds. negative: Tenderness, Guarding Back: positive: Nml inspection Skin: positive: Color nml, Warm, Dry. negative: Cyanosis, Diaphoresis Extremities: positive: Non-tender, Nml appearance, Pedal edema Neurologic/Psychiatric: positive: Sensation nml. negative: Weakness, Sensory loss, Facial droop, Slurred/abnml speech, Depressed mood/affect Conclusion/Plan - Problem List (1) Hepatic encephalopathy Conclusion/Plan: Patient's ammonia level is over 150. Patient present some confused. Patient has a history of alcoholic liver failure. Likely caused by patient medical noncompliance, As the patient admitted. We will order lactulose, Ammonia level check, neuro check. (2) Alcoholic liver failure Conclusion/Plan: Patient has alcoholic liver failure, has cirrhosis and ascites. Patient had paracentesis twice per week with albumin infusion. Patient just finished paracentesis on today, he had 7.5 L of fluids taken out, and he had albumin infusion as well. Patient may follow-up his PCP Continue the management, pt reported he followup with aoc director combat operations officer in the last admission. (3) Hyponatremia Conclusion/Plan: Patient has history hyponatremia. Today patient sodium is 120. Hyponatremia common present at the patient with hepatic failure. Today patient also present dry mouth and dehydration. Patient also had elevated BUN and creatinine. Pt also present weakness clinically. We will give patient intravenous IV fluids with normal saline, Continue laboratory helper. (4) Acute kidney injury Conclusion/Plan: Patient had elevated BUN 100, creatinine 2.3. Patient has advanced hepatic liver failure. we will precaution of hepatorenal disease. pt had 7.5 liter of body fluid removed from Paracentesis on today. Clinic pt present dehydration. we will order IVF with NS, continue lab monitor, avoid nephrotoxic agents. (5) Diabetes mellitus, insulin dependent (IDDM), uncontrolled Conclusion/Plan: pt has 265 glucose level and is better control than before. we will resume pt's home Lantus, start with Slide scale, glucose check ACHS, hypoglycemia protocol (6) Medical non-compliance Conclusion/Plan: This is pt's big issue. As pt admitted he did not take or did not take as the scheduled dosage of medications. I emphasize and educated to pt the importance of medical compliance. Pt agree and promise He will do medical compliance. - Lab Results Fish Bones: 09/01/20 14:12 09/01/20 14:12 Core Measures - Anticipated LOS I expect patient to be DC'd or transferred within 96 hours.: Yes - DVT/VTE - Prophylaxis VTE/DVT Device ordered at admit?: Yes VTE/DVT Prophylaxis med ordered at admit?: Yes
[2020-09-01] MEDS ORDERED: ACETAMINOPHEN 325 MG TABLET PO PRN (15:45)
[2020-09-01] MEDS ORDERED: ALBUTEROL NEB 2.5 MG/3 ML INH PRN (15:57)
[2020-09-01] MEDS: LACTULOSE 10 GM /15 ML UDC PO SCH ×2 (17:13→21:32)
[2020-09-01] MEDS: SODIUM CHLORIDE 0.9% 1,000 ML IV SCH ×2 (17:32→19:56)
[2020-09-01] MEDS: INSULIN ASPART 300 UNIT/3 ML PEN SUBQ SCH ×2 (17:38→21:31)
[2020-09-01] MEDS ORDERED: hydrALAZINE INJ 20 MG/ML VIAL IVP PRN (17:46)
[2020-09-01 17:48] LABS: B. PARAPERTUSSIS- RESP PCR PAN NOT DETECTED; B. PERTUSSIS- RESP PCR PANEL NOT DETECTED; C. PNEUMONIAE- RESP PCR PANEL NOT DETECTED; CORONAVIRUS 229E-RESP PCR NOT DETECTED; CORONAVIRUS HKU1-RESP PCR NOT DETECTED; CORONAVIRUS NL63-RESP PCR NOT DETECTED; CORONAVIRUS OC43-RESP PCR NOT DETECTED; HUMAN METAPNEUMOVIRUS NOT DETECTED; INFLUENZA A- RESP PCR PANEL NOT DETECTED; INFLUENZA B - RESP PCR PANEL NOT DETECTED; M. PNEUMONIAE- RESP PCR PANEL NOT DETECTED; PARAINFLUENZA VIRUS 1 NOT DETECTED; PARAINFLUENZA VIRUS 2 NOT DETECTED; PARAINFLUENZA VIRUS 3 NOT DETECTED; PARAINFLUENZA VIRUS 4 NOT DETECTED; RHINOVIRUS/ENTEROVIRUS NOT DETECTED; RSV- RESP PCR PANEL NOT DETECTED; SARS-CoV-2 -RESP PCR PANEL NOT DETECTED
[2020-09-01 18:22] LABS: BILIRUBIN,URINE NEGATIVE (NEGATIVE); GLUCOSE, URINE (UA) NEGATIVE (NEGATIVE); KETONES,URINE (UA) NEGATIVE (NEGATIVE); LEUKOCYTE ESTERASE, URINE NEGATIVE (NEGATIVE); NITRITE,URINE NEGATIVE (NEGATIVE); OCCULT BLOOD,URINE TRACE-INTA (NEGATIVE); PH,URINE 5.5 PH (5.0-7.5); PROTEIN,URINE NEGATIVE (NEGATIVE); UROBILINOGEN,URINE 0.2 (NORMAL) E.U./dL (NORMAL)
[2020-09-01 18:24] LABS: CLARITY,URINE CLEAR (CLEAR)
[2020-09-01] MEDS: SODIUM CHLORIDE FLUSH 0.9% 10 ML SYRINGE IVP SCH ×2 (19:14→23:29)
[2020-09-01] MEDS: PROCHLORPERAZINE 10 MG/2 ML VIAL IVP PRN (19:39)
[2020-09-01] MEDS: INSULIN GLARGINE 300 UNIT/3 ML PEN SUBQ SCH (21:31)
[2020-09-01] MEDS: HEPARIN 5,000 UNIT/ML VIAL SUBQ SCH (21:32)
[2020-09-01 22:23] LABS: CALCIUM 8.6 mg/dL (8.5-10.3); POTASSIUM 5.1 mmol/L (3.5-5.0)
[2020-09-02] MEDS: SODIUM CHLORIDE 0.9% 1,000 ML IV SCH ×3 (04:06→23:06)
[2020-09-02 06:13] LABS: BASOPHILS # (AUTO) 0.1 10^3/uL (0.0-0.1); BASOPHILS % (AUTO) 0.9 %; EOSINOPHILS # (AUTO) 0.1 10^3/uL (0.0-0.7); EOSINOPHILS % (AUTO) 1.5 %; HCT - HEMATOCRIT 27.5 % (42.0-52.0); HGB - HEMOGLOBIN 9.9 g/dL (14.0-18.0); LYMPHOCYTES # (AUTO) 0.9 10^3/uL (1.5-3.5); LYMPHOCYTES % (AUTO) 15.5 %; MEAN CORPUSCULAR HEMOGLOBIN 32.8 pg (27.0-31.0); MEAN CORPUSCULAR VOLUME 91.1 fL (80.0-94.0); MEAN PLATELET VOLUME 9.3 fL (7.4-11.4); MONOCYTES # (AUTO) 1.1 10^3/uL (0.0-1.0); MONOCYTES % (AUTO) 19.3 %; NEUTROPHILS # (AUTO) 3.6 10^3/uL (1.5-6.6); NEUTROPHILS % (AUTO) 62.5 %; PLT - PLATELET COUNT 136 10^3/uL (130-450); RED BLOOD COUNT 3.02 10^6/uL (4.70-6.10); RED CELL DISTRIBUTION WIDTH 13.2 % (12.0-15.0); WHITE BLOOD COUNT 5.8 x10^3/uL (4.8-10.8)
[2020-09-02 06:33] LABS: CALCIUM 8.4 mg/dL (8.5-10.3); CREATININE 1.8 mg/dL (0.6-1.2); POTASSIUM 4.6 mmol/L (3.5-5.0)
[2020-09-02] MEDS: INSULIN ASPART 300 UNIT/3 ML PEN SUBQ SCH ×4 (08:05→22:44)
[2020-09-02] MEDS: HEPARIN 5,000 UNIT/ML VIAL SUBQ SCH ×2 (08:34→22:46)
[2020-09-02] MEDS: LACTULOSE 10 GM /15 ML UDC PO SCH ×4 (08:35→22:24)
[2020-09-02] MEDS: SODIUM CHLORIDE FLUSH 0.9% 10 ML SYRINGE IVP SCH ×2 (08:37→17:12)
--- NOTE | 2020-09-02 09:24 | PROVIDER PROGRESS NOTE ---
Assessment/Plan - Problem List (1) Hepatic encephalopathy Assessment/Plan: Patient's ammonia level was over 150. Patient present some confused. Patient has a history of alcoholic liver failure. Likely caused by patient medical noncompliance, We restarted his lactulose, ammonia level sdlt down to 125 today Follow Ammonia level daily, neuro check. (2) Alcoholic liver failure Conclusion/Plan: Patient has alcoholic liver failure, cirrhosis with severe ascites. Patient needs paracentesis twice per week with albumin infusion. Patient just had paracentesis at [facility] [place] [place], he had 7.5 L of fluids taken out, and he had albumin infusion as well. Will cancel po Tylenol prn Start Spironolactone. He used to be on it, unknown why stopped. Follow LFTs daily (3) Hyponatremia Conclusion/Plan: Patient has history hyponatremia, presented with Na 120. Hyponatremia is his common presentation with hepatic his failure. Yesterday patient also pt dry mouth and dehydration. Patient also had elevated BUN and creatinine. Pt also present weakness clinically. We started patient intravenous IV fluids with normal saline, will decrease the rate to slow down return of ascites Continue geotechnical laboratory technician. (4) Acute kidney injury Conclusion/Plan: Patient had elevated BUN 100, creatinine 2.3. Patient has advanced hepatic liver failure. we will precaution of hepatorenal disease. pt had 7.5 liter of body fluid removed from Paracentesis yesterday. At [facility] he presented with dehydration yesterday. we started IVF with NS, continue lab monitor, avoid nephrotoxic agents. (5) Diabetes mellitus, insulin dependent (IDDM), uncontrolled Conclusion/Plan: pt has 265 glucose level and is better control than before. we resumed pt's home Lantus, start with Slide scale, glucose check ACHS, hypoglycemia protocol (6) Medical non-compliance Conclusion/Plan: This is pt's big issue. As pt admitted he did not take or did not take as the scheduled dosage of medications. I emphasize and educated to pt the importance of medical compliance. Pt agree and promise He will do medical compliance, however, it was while he was encephalopathic (elevated ammonia). - Current Meds Current Meds: Current Medications Generic Name Dose Route Start Last Admin Trade Name Freq PRN Reason Stop Dose Admin Heparin Sodium (Porcine) 5,000 unit 09/01/20 21:00 09/02/20 08:34 Heparin 5,000 Unit/Ml Vial SUBQ 5,000 unit BID JOY Administration Insulin Aspart 3 - 11 unit 09/01/20 17:00 09/02/20 08:05 Insulin Aspart 300 Unit/3 Ml Pen SUBQ 3 unit 0800,1200,1700,2100 [facility] Administration Protocol Insulin Glargine 65 unit 09/01/20 21:00 09/01/20 21:31 Insulin Glargine 300 Unit/3 Ml Pen SUBQ 65 unit QPM JOY Administration Lactulose 30 gm 09/01/20 17:00 09/02/20 08:35 Lactulose 10 Gm /15 Ml Udc PO 30 gm QID OJY Administration Prochlorperazine Edisylate 10 mg 09/01/20 15:45 09/01/20 19:39 Prochlorperazine 10 Mg/2 Ml Vial IVP 10 mg Q6HR PRN Administration Nausea / Vomiting Sodium Chloride 10 ml 09/01/20 17:00 09/02/20 08:37 Sodium Chloride Flush 0.9% 10 Ml Syringe IVP Not Given 0100,0900,1700 [facility] - Lab Result Fish Bone Diagrams: 09/02/20 06:05 09/02/20 06:05 - Additional Planning My Orders: My Active Orders 09/02/20 09:14 Telemetry-Discontinue [RC] .ONCE 09/02/20 09:15 Sodium Chloride 0.9% [Normal Saline 0.9%] 1,000 ml IV 83.33 mls/hr 09/02/20 12:00 Spironolactone [Aldactone] 25 mg PO TIDWM Objective Vital Signs: Vital Signs - 24 hr 09/01/20 09/01/20 09/01/20 13:18 13:49 16:00 Temperature 36.2 C L Heart Rate 81 85 82 Heart Rate [ Brachial] Respiratory 16 15 17 Rate Blood Pressure 92/54 L 118/71 132/72 H Blood Pressure [Left Brachial artery] Blood Pressure [Right Brachial artery] O2 Saturation 100 99 98 09/01/20 09/01/20 09/01/20 17:04 17:36 18:20 Temperature 36.7 C 36.7 C Heart Rate 84 85 Heart Rate [ 85 Brachial] Respiratory 14 18 18 Rate Blood Pressure 123/68 Blood Pressure [Left Brachial artery] Blood Pressure 188/59 H [Right Brachial artery] O2 Saturation 97 99 97 09/01/20 09/01/20 09/02/20 19:19 20:55 01:00 Temperature 36.3 C L 36.4 C L Heart Rate Heart Rate [ 79 81 93 Brachial] Respiratory 18 18 Rate Blood Pressure Blood Pressure 123/63 [Left Brachial artery] Blood Pressure 108/57 L 116/67 [Right Brachial artery] O2 Saturation 99 97 09/02/20 09/02/20 05:00 07:28 Temperature 36.6 C 36.6 C Heart Rate Heart Rate [ 83 85 Brachial] Respiratory 18 16 Rate Blood Pressure Blood Pressure [Left Brachial artery] Blood Pressure 113/62 116/61 [Right Brachial artery] O2 Saturation 97 96 Oxygen O2 Source Room air I&O (Last 24 Hrs): Intake and Output Totals x24h 08/31/20 09/01/20 09/02/20 23:59 23:59 23:59 Intake Total 1350 1960 Output Total 900 800 Balance 450 1160 - Results Results: Laboratory Results WBC 5.8 x10^3/uL (4.8-10.8) 09/02/20 06:05 RBC 3.02 10^6/uL (4.70-6.10) L 09/02/20 06:05 Hgb 9.9 g/dL (14.0-18.0) L 09/02/20 06:05 Hct 27.5 % (42.0-52.0) L 09/02/20 06:05 MCV 91.1 fL (80.0-94.0) 09/02/20 06:05 MCH 32.8 pg (27.0-31.0) H 09/02/20 06:05 MCHC 36.0 g/dL (32.0-36.0) 09/02/20 06:05 RDW 13.2 % (12.0-15.0) 09/02/20 06:05 Plt Count 136 10^3/uL (130-450) 09/02/20 06:05 MPV 9.3 fL (7.4-11.4) 09/02/20 06:05 Neut # (Auto) 3.6 10^3/uL (1.5-6.6) 09/02/20 06:05 Lymph # (Auto) 0.9 10^3/uL (1.5-3.5) L 09/02/20 06:05 [place] # (Auto) 1.1 10^3/uL (0.0-1.0) H 09/02/20 06:05 Eos # (Auto) 0.1 10^3/uL (0.0-0.7) 09/02/20 06:05 Baso # (Auto) 0.1 10^3/uL (0.0-0.1) 09/02/20 06:05 Absolute Nucleated RBC 0.00 x10^3/uL 09/02/20 06:05 Nucleated RBC % 0.0 /100WBC 09/02/20 06:05 PT 14.0 secs (9.9-12.6) H 09/01/20 14:12 INR 1.3 (0.8-1.2) H 09/01/20 14:12 APTT 30.5 secs (24.9-33.3) 09/01/20 14:12 Sodium 127 mmol/L (135-145) L 09/02/20 06:05 Potassium 4.6 mmol/L (3.5-5.0) 09/02/20 06:05 Chloride 95 mmol/L (101-111) L 09/02/20 06:05 Carbon Dioxide 22 mmol/L (21-32) 09/02/20 06:05 Anion Gap 10.0 (6-13) 09/02/20 06:05 BUN 88 mg/dL (6-20) H* 09/02/20 06:05 Creatinine 1.8 mg/dL (0.6-1.2) H 09/02/20 06:05 Estimated GFR (MDRD) 40 (>89) L 09/02/20 06:05 Glucose 153 mg/dL (70-100) H 09/02/20 06:05 POC Whole Bld Glucose 170 mg/dL (70 - 100) H 09/02/20 07:24 Calcium 8.4 mg/dL (8.5-10.3) L 09/02/20 06:05 Magnesium 3.1 mg/dL (1.7-2.8) H 09/01/20 14:12 Total Bilirubin 2.3 mg/dL (0.2-1.0) H 09/01/20 14:12 AST 41 IU/L (10-42) 09/01/20 14:12 ALT 29 IU/L (10-60) 09/01/20 14:12 Alkaline Phosphatase 75 IU/L (42-121) 09/01/20 14:12 Ammonia 126.5 umol/L (7-35) H* 09/02/20 06:05 Total Protein 5.8 g/dL (6.7-8.2) L 09/01/20 14:12 Albumin 3.7 g/dL (3.2-5.5) 09/01/20 14:12 Globulin 2.1 g/dL (2.1-4.2) 09/01/20 14:12 Albumin/Globulin Ratio 1.8 (1.0-2.2) 09/01/20 14:12 Lipase 110 U/L (22-51) H 09/01/20 14:12 Urine Color YELLOW 09/01/20 18:10 Urine Clarity CLEAR (CLEAR) 09/01/20 18:10 Urine pH 5.5 PH (5.0-7.5) 09/01/20 18:10 Ur Specific [place] 1.020 (1.002-1.030) 09/01/20 18:10 Urine Protein NEGATIVE mg/dL (NEGATIVE) 09/01/20 18:10 Urine Glucose (UA) NEGATIVE mg/dL (NEGATIVE) 09/01/20 18:10 Urine Ketones NEGATIVE mg/dL (NEGATIVE) 09/01/20 18:10 Urine Occult Blood TRACE-INTA (NEGATIVE) 09/01/20 18:10 Urine Nitrite NEGATIVE (NEGATIVE) 09/01/20 18:10 Urine Bilirubin NEGATIVE (NEGATIVE) 09/01/20 18:10 Urine Urobilinogen 0.2 (NORMAL) E.U./dL (NORMAL) 09/01/20 18:10 Ur Leukocyte Esterase NEGATIVE (NEGATIVE) 09/01/20 18:10 Ur Microscopic Review NOT INDICATED 09/01/20 18:10 Urine Culture Comments NOT INDICATED 09/01/20 18:10 Nasal Adenovirus (PCR) NOT DETECTED 09/01/20 16:11 Nasal B. parapertussis DNA (PCR) NOT DETECTED 09/01/20 16:11 Nasal Coronavir 229E PCR NOT DETECTED 09/01/20 16:11 Nasal Coronavir HKU1 PCR NOT DETECTED 09/01/20 16:11 Nasal Coronavir NL63 PCR NOT DETECTED 09/01/20 16:11 Nasal Coronavir OC43 PCR NOT DETECTED 09/01/20 16:11 Nasal Enterovir/Rhinovir PCR NOT DETECTED 09/01/20 16:11 Nasal Influenza B PCR NOT DETECTED 09/01/20 16:11 Nasal Influenza A PCR NOT DETECTED 09/01/20 16:11 Nasal Parainfluen 1 PCR NOT DETECTED 09/01/20 16:11 Nasal Parainfluen 2 PCR NOT DETECTED 09/01/20 16:11 Nasal Parainfluen 3 PCR NOT DETECTED 09/01/20 16:11 Nasal Parainfluen 4 PCR NOT DETECTED 09/01/20 16:11 Nasal RSV (PCR) NOT DETECTED 09/01/20 16:11 Nasal B.pertussis DNA PCR NOT DETECTED 09/01/20 16:11 Nasal C.pneumoniae (PCR) NOT DETECTED 09/01/20 16:11 Natanael Human Metapneumo PCR NOT DETECTED 09/01/20 16:11 Nasal M.pneumoniae (PCR) NOT DETECTED 09/01/20 16:11 Nasal SARS-CoV-2 (PCR) NOT DETECTED 09/01/20 16:11 - Procedures Procedures: Procedures DRAINAGE OF PERITONEAL CAVITY, PERCUTANEOUS APPROACH (03/20/20)
[2020-09-02] MEDS: CALAMINE/ZINC OXIDE 177 ML BOTTLE TOP PRN ×2 (11:48→14:40)
[2020-09-02] MEDS: LIDOCAINE PATCH 5% TOP PRN (11:48)
[2020-09-02] MEDS: SPIRONOLACTONE 25 MG TABLET PO SCH ×2 (12:07→17:12)
[2020-09-02 13:12] LABS: ESTIMATED AVERAGE GLUCOSE 226 mg/dL (70-100); HEMOGLOBIN A1c% 9.5 % (4.27-6.07)
--- NOTE | 2020-09-02 14:41 | PHARMACY PROGRESS NOTE ---
- Best Possible Medication History Admit Date and Time: 09/01/20 1545 Processed by: Pharmacy Medication History completed: Yes Patient Interview: Completed Secondary Source(s): Physician records, Pharmacy records, Insurance records Patient reports inconsistent adherence to his medications. He responds to most questions regarding how he takes his medications with how he is "supposed" to take them. He has not started taking venlafaxine yet, which was prescribed at the end of last month. As the person ultimately responsible for medication therapy, providers are able to order a medication from an existing home medication list in [facility] via the "Reconcile Routine" prior to Confirmation of that medication by academic support coordinator. Such practice is discouraged except when the physician, in their clinical judgment, deems that a medical need exists for a medication without regard to previous use.
--- NOTE | 2020-09-02 19:57 | PROVIDER PROGRESS NOTE ---
Assessment/Plan - Problem List (1) Hepatic encephalopathy Assessment/Plan: Since ammonia level improved from 156 down to 125. His mentation has improved significantly. He is able to carry on a meaningful conversation On lactulose 30 g p.o. 4 times daily. (2) Alcoholic liver failure Assessment/Plan: He has biweekly paracentesis at the [facility]. About 6 to 7 L of ascites fluid was extracted yesterday. On spironolactone 25 mg p.o. 3 times daily with meals and lactulose 30 g p.o. 4 times daily (3) Hyponatremia Assessment/Plan: Slightly improved from a sodium level of 121 up to 127. (4) Acute kidney injury Assessment/Plan: Creatinine improved from 2.0 down to 1.8. Estimated GFR improved from 35 up to 40. He is receiving gentle IV hydration with normal saline at 83ml/hr (5) Diabetes mellitus, insulin dependent (IDDM), uncontrolled Assessment/Plan: Poorly controlled. Hemoglobin A1c was 9.5. Lantus 65 units subcu every afternoon. Sliding scale insulin and Accu-Cheks. (6) Medical non-compliance Assessment/Plan: Patient educated on importance of being compliant with his medical treatment. - Current Meds Current Meds: Current Medications Generic Name Dose Route Start Last Admin Trade Name Freq PRN Reason Stop Dose Admin Calamine 1 applic 09/02/20 09:30 09/02/20 14:40 Calamine/Zinc Oxide 177 Ml Bottle TOP 1 applic Q6HR PRN Administration ITCHING Heparin Sodium (Porcine) 5,000 unit 09/01/20 21:00 09/02/20 08:34 Heparin 5,000 Unit/Ml Vial SUBQ 5,000 unit BID JOY Administration Sodium Chloride 1,000 mls @ 83.33 mls/hr 09/02/20 09:15 09/02/20 10:25 Normal Saline 0.9% IV 83.33 mls/hr .Q12H1M JOY Administration Insulin Aspart 3 - 11 unit 09/01/20 17:00 09/02/20 17:11 Insulin Aspart 300 Unit/3 Ml Pen SUBQ 5 unit 0800,1200,1700,2100 JOY Administration Protocol Insulin Glargine 65 unit 09/01/20 21:00 09/01/20 21:31 Insulin Glargine 300 Unit/3 Ml Pen SUBQ 65 unit QPM JOY Administration Lactulose 30 gm 09/01/20 17:00 09/02/20 17:12 Lactulose 10 Gm /15 Ml Udc PO 30 gm QID JOY Administration Lidocaine 1 patch 09/02/20 09:30 09/02/20 11:48 Lidocaine Patch 5% TOP 1 patch DAILY PRN Administration PAIN Prochlorperazine Edisylate 10 mg 09/01/20 15:45 09/01/20 19:39 Prochlorperazine 10 Mg/2 Ml Vial IVP 10 mg Q6HR PRN Administration Nausea / Vomiting Sodium Chloride 10 ml 09/01/20 17:00 09/02/20 17:12 Sodium Chloride Flush 0.9% 10 Ml Syringe IVP Not Given 0100,0900,1700 [facility] Spironolactone 25 mg 09/02/20 12:00 09/02/20 17:12 Spironolactone 25 Mg Tablet PO 25 mg TIDWM JOY Administration - Lab Result Fish Bone Diagrams: 09/02/20 06:05 09/02/20 06:05 Subjective - Subjective Patient Reports: Other (He was sound asleep at time of exam but readily arousable to verbal stimuli. He denied chest pain, dyspnea, abdominal pain, fever or chills. He complains of an 8 out of 10 back pain.) Objective Vital Signs: Vital Signs - 24 hr 09/01/20 09/02/20 09/02/20 20:55 01:00 05:00 Temperature 36.3 C L 36.4 C L 36.6 C Heart Rate Heart Rate [ 81 93 83 Brachial] Respiratory 18 18 18 Rate Blood Pressure 123/63 [Left Brachial artery] Blood Pressure 116/67 113/62 [Right Brachial artery] O2 Saturation 99 97 97 09/02/20 09/02/20 09/02/20 07:28 11:56 12:20 Temperature 36.6 C 36.7 C Heart Rate 89 Heart Rate [ 85 83 Brachial] Respiratory 16 16 16 Rate Blood Pressure 111/61 [Left Brachial artery] Blood Pressure 116/61 [Right Brachial artery] O2 Saturation 96 97 09/02/20 09/02/20 16:21 19:41 Temperature 36.7 C 36.8 C Heart Rate Heart Rate [ 87 89 Brachial] Respiratory 16 16 Rate Blood Pressure [Left Brachial artery] Blood Pressure 115/65 109/62 [Right Brachial artery] O2 Saturation 98 100 Oxygen O2 Source Room air I&O (Last 24 Hrs): Intake and Output Totals x24h 08/31/20 09/01/20 09/02/20 23:59 23:59 23:59 Intake Total 1350 3339.58 Output Total 900 1400 Balance 450 1939.58 General: Alert, Oriented x3, Mild distress, Moderate distress HEENT: PERRLA, EOMI Neck: Supple, No JVD Neuro: Alert, Non Focal, Oriented Times 3 Cardiovascular: Regular rate Respiratory: Chest non-tender, No respiratory distress, Breath sounds nml Abdomen: Normal bowel sounds, Soft, No tenderness, Other (distended abdomen) Extremities: No clubbing, No edema, No tenderness/swelling Skin: No rashes, No breakdown - Results Results: Laboratory Results WBC 5.8 x10^3/uL (4.8-10.8) 09/02/20 06:05 RBC 3.02 10^6/uL (4.70-6.10) L 09/02/20 06:05 Hgb 9.9 g/dL (14.0-18.0) L 09/02/20 06:05 Hct 27.5 % (42.0-52.0) L 09/02/20 06:05 MCV 91.1 fL (80.0-94.0) 09/02/20 06:05 MCH 32.8 pg (27.0-31.0) H 09/02/20 06:05 MCHC 36.0 g/dL (32.0-36.0) 09/02/20 06:05 RDW 13.2 % (12.0-15.0) 09/02/20 06:05 Plt Count 136 10^3/uL (130-450) 09/02/20 06:05 MPV 9.3 fL (7.4-11.4) 09/02/20 06:05 Neut # (Auto) 3.6 10^3/uL (1.5-6.6) 09/02/20 06:05 Lymph # (Auto) 0.9 10^3/uL (1.5-3.5) L 09/02/20 06:05 [place] # (Auto) 1.1 10^3/uL (0.0-1.0) H 09/02/20 06:05 Eos # (Auto) 0.1 10^3/uL (0.0-0.7) 09/02/20 06:05 Baso # (Auto) 0.1 10^3/uL (0.0-0.1) 09/02/20 06:05 Absolute Nucleated RBC 0.00 x10^3/uL 09/02/20 06:05 Nucleated RBC % 0.0 /100WBC 09/02/20 06:05 PT 14.0 secs (9.9-12.6) H 09/01/20 14:12 INR 1.3 (0.8-1.2) H 09/01/20 14:12 APTT 30.5 secs (24.9-33.3) 09/01/20 14:12 Sodium 127 mmol/L (135-145) L 09/02/20 06:05 Potassium 4.6 mmol/L (3.5-5.0) 09/02/20 06:05 Chloride 95 mmol/L (101-111) L 09/02/20 06:05 Carbon Dioxide 22 mmol/L (21-32) 09/02/20 06:05 Anion Gap 10.0 (6-13) 09/02/20 06:05 BUN 88 mg/dL (6-20) H* 09/02/20 06:05 Creatinine 1.8 mg/dL (0.6-1.2) H 09/02/20 06:05 Estimated GFR (MDRD) 40 (>89) L 09/02/20 06:05 Glucose 153 mg/dL (70-100) H 09/02/20 06:05 POC Whole Bld Glucose 206 mg/dL (70 - 100) H 09/02/20 16:34 Estimat Average Glucose 226 mg/dL (70-100) H 09/02/20 06:05 Hemoglobin A1c % 9.5 % (4.27-6.07) H 09/02/20 06:05 Calcium 8.4 mg/dL (8.5-10.3) L 09/02/20 06:05 Magnesium 3.1 mg/dL (1.7-2.8) H 09/01/20 14:12 Total Bilirubin 2.3 mg/dL (0.2-1.0) H 09/01/20 14:12 AST 41 IU/L (10-42) 09/01/20 14:12 ALT 29 IU/L (10-60) 09/01/20 14:12 Alkaline Phosphatase 75 IU/L (42-121) 09/01/20 14:12 Ammonia 126.5 umol/L (7-35) H* 09/02/20 06:05 Total Protein 5.8 g/dL (6.7-8.2) L 09/01/20 14:12 Albumin 3.7 g/dL (3.2-5.5) 09/01/20 14:12 Globulin 2.1 g/dL (2.1-4.2) 09/01/20 14:12 Albumin/Globulin Ratio 1.8 (1.0-2.2) 09/01/20 14:12 Lipase 110 U/L (22-51) H 09/01/20 14:12 Urine Color YELLOW 09/01/20 18:10 Urine Clarity CLEAR (CLEAR) 09/01/20 18:10 Urine pH 5.5 PH (5.0-7.5) 09/01/20 18:10 Ur Specific [place] 1.020 (1.002-1.030) 09/01/20 18:10 Urine Protein NEGATIVE mg/dL (NEGATIVE) 09/01/20 18:10 Urine Glucose (UA) NEGATIVE mg/dL (NEGATIVE) 09/01/20 18:10 Urine Ketones NEGATIVE mg/dL (NEGATIVE) 09/01/20 18:10 Urine Occult Blood TRACE-INTA (NEGATIVE) 09/01/20 18:10 Urine Nitrite NEGATIVE (NEGATIVE) 09/01/20 18:10 Urine Bilirubin NEGATIVE (NEGATIVE) 09/01/20 18:10 Urine Urobilinogen 0.2 (NORMAL) E.U./dL (NORMAL) 09/01/20 18:10 Ur Leukocyte Esterase NEGATIVE (NEGATIVE) 09/01/20 18:10 Ur Microscopic Review NOT INDICATED 09/01/20 18:10 Urine Culture Comments NOT INDICATED 09/01/20 18:10 Nasal Adenovirus (PCR) NOT DETECTED 09/01/20 16:11 Nasal B. parapertussis DNA (PCR) NOT DETECTED 09/01/20 16:11 Nasal Coronavir 229E PCR NOT DETECTED 09/01/20 16:11 Nasal Coronavir HKU1 PCR NOT DETECTED 09/01/20 16:11 Nasal Coronavir NL63 PCR NOT DETECTED 09/01/20 16:11 Nasal Coronavir OC43 PCR NOT DETECTED 09/01/20 16:11 Nasal Enterovir/Rhinovir PCR NOT DETECTED 09/01/20 16:11 Nasal Influenza B PCR NOT DETECTED 09/01/20 16:11 Nasal Influenza A PCR NOT DETECTED 09/01/20 16:11 Nasal Parainfluen 1 PCR NOT DETECTED 09/01/20 16:11 Nasal Parainfluen 2 PCR NOT DETECTED 09/01/20 16:11 Nasal Parainfluen 3 PCR NOT DETECTED 09/01/20 16:11 Nasal Parainfluen 4 PCR NOT DETECTED 09/01/20 16:11 Nasal RSV (PCR) NOT DETECTED 09/01/20 16:11 Nasal B.pertussis DNA PCR NOT DETECTED 09/01/20 16:11 Nasal C.pneumoniae (PCR) NOT DETECTED 09/01/20 16:11 Natanael Human Metapneumo PCR NOT DETECTED 09/01/20 16:11 Nasal M.pneumoniae (PCR) NOT DETECTED 09/01/20 16:11 Nasal SARS-CoV-2 (PCR) NOT DETECTED 09/01/20 16:11 - Procedures Procedures: Procedures DRAINAGE OF PERITONEAL CAVITY, PERCUTANEOUS APPROACH (03/20/20) ABX Reporting Has patient been on IV antibiotics over the past 48 hours?: No
[2020-09-02] MEDS: HYDROcod/ACETAM 5/325 MG TABLET PO PRN (22:24)
[2020-09-02] MEDS: INSULIN GLARGINE 300 UNIT/3 ML PEN SUBQ SCH (22:43)
[2020-09-03] MEDS: SODIUM CHLORIDE FLUSH 0.9% 10 ML SYRINGE IVP SCH ×3 (00:41→17:14)
[2020-09-03 06:26] LABS: BASOPHILS # (AUTO) 0.1 10^3/uL (0.0-0.1); EOSINOPHILS # (AUTO) 0.2 10^3/uL (0.0-0.7); EOSINOPHILS % (AUTO) 2.3 %; HCT - HEMATOCRIT 31.4 % (42.0-52.0); LYMPHOCYTES # (AUTO) 1.1 10^3/uL (1.5-3.5); LYMPHOCYTES % (AUTO) 15.8 %; MEAN CORPUSCULAR HEMOGLOBIN 32.7 pg (27.0-31.0); MEAN CORPUSCULAR VOLUME 93.5 fL (80.0-94.0); MEAN PLATELET VOLUME 9.9 fL (7.4-11.4); MONOCYTES # (AUTO) 1.1 10^3/uL (0.0-1.0); MONOCYTES % (AUTO) 16.4 %; NEUTROPHILS # (AUTO) 4.5 10^3/uL (1.5-6.6); NEUTROPHILS % (AUTO) 64.2 %; PLT - PLATELET COUNT 151 10^3/uL (130-450); RED BLOOD COUNT 3.36 10^6/uL (4.70-6.10); RED CELL DISTRIBUTION WIDTH 13.3 % (12.0-15.0)
[2020-09-03 06:40] LABS: CALCIUM 8.5 mg/dL (8.5-10.3); CREATININE 1.7 mg/dL (0.6-1.2); POTASSIUM 4.5 mmol/L (3.5-5.0)
[2020-09-03] MEDS: SPIRONOLACTONE 25 MG TABLET PO SCH ×3 (08:04→17:12)
[2020-09-03] MEDS: LACTULOSE 10 GM /15 ML UDC PO SCH ×4 (08:04→21:40)
[2020-09-03] MEDS: INSULIN ASPART 300 UNIT/3 ML PEN SUBQ SCH ×4 (08:07→21:41)
[2020-09-03] MEDS: HEPARIN 5,000 UNIT/ML VIAL SUBQ SCH ×2 (08:11→21:40)
[2020-09-03] MEDS: HYDROcod/ACETAM 5/325 MG TABLET PO PRN ×3 (09:48→21:40)
[2020-09-03] MEDS: SODIUM CHLORIDE 0.9% 1,000 ML IV SCH ×2 (10:39→21:45)
[2020-09-03] MEDS: LIDOCAINE PATCH 5% TOP PRN (12:16)
--- NOTE | 2020-09-03 20:03 | PROVIDER PROGRESS NOTE ---
Assessment/Plan - Problem List (1) Hepatic encephalopathy Assessment/Plan: Patient continues to improve daily. Ammonia level is 61. This is an improvement from 125 yesterday Continue lactulose 30 mg p.o. 4 times daily. (2) Alcoholic liver failure Assessment/Plan: Patient's abdomen is more distended today. However it is soft and nontender. Patient's next paracentesis is scheduled for 09/05/20 in the [facility]. (3) Hyponatremia Assessment/Plan: Sodium level is at 127. Will continue to monitor (4) Acute kidney injury Assessment/Plan: Creatinine today is 1.7 with an estimated GFR of 43. However BUN is Still critically high at 81. Anticipating further improvement. (5) Diabetes mellitus, insulin dependent (IDDM), uncontrolled Assessment/Plan: Poorly controlled. Hemoglobin A1c was 9.5. Lantus 65 units subcu every afternoon. Sliding scale insulin and Accu-Cheks. - Current Meds Current Meds: Current Medications Generic Name Dose Route Start Last Admin Trade Name Freq PRN Reason Stop Dose Admin Hydrocodone Bitart/Acetaminophen 1 tab 09/02/20 21:00 09/03/20 17:12 Hydrocod/Acetam 5/325 Mg Tablet PO 1 tab Q4HR PRN Administration PAIN Calamine 1 applic 09/02/20 09:30 09/02/20 14:40 Calamine/Zinc Oxide 177 Ml Bottle TOP 1 applic Q6HR PRN Administration ITCHING Heparin Sodium (Porcine) 5,000 unit 09/01/20 21:00 09/03/20 08:11 Heparin 5,000 Unit/Ml Vial SUBQ 5,000 unit BID JOY Administration Sodium Chloride 1,000 mls @ 83.33 mls/hr 09/02/20 09:15 09/03/20 10:39 Normal Saline 0.9% IV 83.33 mls/hr .Q12H1M JOY Administration Insulin Aspart 3 - 11 unit 09/01/20 17:00 09/03/20 17:14 Insulin Aspart 300 Unit/3 Ml Pen SUBQ 5 unit 0800,1200,1700,2100 JOY Administration Protocol Insulin Glargine 65 unit 09/01/20 21:00 09/02/20 22:43 Insulin Glargine 300 Unit/3 Ml Pen SUBQ 65 unit QPM JOY Administration Lactulose 30 gm 09/01/20 17:00 09/03/20 17:13 Lactulose 10 Gm /15 Ml Udc PO 30 gm QID JOY Administration Lidocaine 1 patch 09/02/20 09:30 09/03/20 12:16 Lidocaine Patch 5% TOP 1 patch DAILY PRN Administration PAIN Prochlorperazine Edisylate 10 mg 09/01/20 15:45 09/01/20 19:39 Prochlorperazine 10 Mg/2 Ml Vial IVP 10 mg Q6HR PRN Administration Nausea / Vomiting Sodium Chloride 10 ml 09/01/20 17:00 09/03/20 17:14 Sodium Chloride Flush 0.9% 10 Ml Syringe IVP Not Given 0100,0900,1700 JOY Spironolactone 25 mg 09/02/20 12:00 09/03/20 17:12 Spironolactone 25 Mg Tablet PO 25 mg TIDWM JOY Administration - Lab Result Fish Bone Diagrams: 09/03/20 06:21 09/03/20 06:21 - Additional Planning My Orders: My Active Orders 09/02/20 21:00 HYDROcod/ACETAM 5/325 [[place] 5/325] 1 tab PO Q4HR PRN Subjective - Subjective Patient Reports: Other (On the table. Alert oriented x3. Denies any complaints. Abdomen more distended today but soft.) Objective Vital Signs: Vital Signs - 24 hr 09/03/20 09/03/20 09/03/20 00:22 04:05 07:29 Temperature 36.8 C 36.4 C L 36.2 C L Heart Rate Heart Rate [ 91 87 84 Brachial] Respiratory 20 18 18 Rate Blood Pressure 129/73 127/75 118/61 [Right Brachial artery] O2 Saturation 99 100 100 09/03/20 09/03/20 09/03/20 09:00 13:00 16:03 Temperature 36.4 C L 36.4 C L Heart Rate 84 Heart Rate [ 103 H 100 Brachial] Respiratory 16 16 16 Rate Blood Pressure 124/77 115/78 [Right Brachial artery] O2 Saturation 100 100 Oxygen O2 Source Room air I&O (Last 24 Hrs): Intake and Output Totals x24h 09/01/20 09/02/20 09/03/20 23:59 23:59 23:59 Intake Total 1350 4739.58 1442.462 Output Total 900 2000 830 Balance 450 2739.58 612.462 General: Alert, Oriented x3, No acute distress HEENT: PERRLA, EOMI Neck: Supple, No JVD Neuro: Alert, Non Focal, Oriented Times 3 Cardiovascular: Regular rate, No murmurs Respiratory: Chest non-tender, No respiratory distress, Breath sounds nml Abdomen: Normal bowel sounds, Soft, Other (distended abdomen) Extremities: No clubbing, No cyanosis, No edema Skin: No rashes, No breakdown - Results Results: Laboratory Results WBC 7.0 x10^3/uL (4.8-10.8) 09/03/20 06:21 RBC 3.36 10^6/uL (4.70-6.10) L 09/03/20 06:21 Hgb 11.0 g/dL (14.0-18.0) L 09/03/20 06:21 Hct 31.4 % (42.0-52.0) L 09/03/20 06:21 MCV 93.5 fL (80.0-94.0) 09/03/20 06:21 MCH 32.7 pg (27.0-31.0) H 09/03/20 06:21 MCHC 35.0 g/dL (32.0-36.0) 09/03/20 06:21 RDW 13.3 % (12.0-15.0) 09/03/20 06:21 Plt Count 151 10^3/uL (130-450) 09/03/20 06:21 MPV 9.9 fL (7.4-11.4) 09/03/20 06:21 Neut # (Auto) 4.5 10^3/uL (1.5-6.6) 09/03/20 06:21 Lymph # (Auto) 1.1 10^3/uL (1.5-3.5) L 09/03/20 06:21 [place] # (Auto) 1.1 10^3/uL (0.0-1.0) H 09/03/20 06:21 Eos # (Auto) 0.2 10^3/uL (0.0-0.7) 09/03/20 06:21 Baso # (Auto) 0.1 10^3/uL (0.0-0.1) 06/20/21 06:21 Absolute Nucleated RBC 0.00 x10^3/uL 09/03/20 06:21 Nucleated RBC % 0.0 /100WBC 09/03/20 06:21 PT 14.0 secs (9.9-12.6) H 09/01/20 14:12 INR 1.3 (0.8-1.2) H 09/01/20 14:12 APTT 30.5 secs (24.9-33.3) 09/01/20 14:12 Sodium 127 mmol/L (135-145) L 09/03/20 06:21 Potassium 4.5 mmol/L (3.5-5.0) 09/03/20 06:21 Chloride 94 mmol/L (101-111) L 09/03/20 06:21 Carbon Dioxide 23 mmol/L (21-32) 09/03/20 06:21 Anion Gap 10.0 (6-13) 09/03/20 06:21 BUN 81 mg/dL (6-20) H* 09/03/20 06:21 Creatinine 1.7 mg/dL (0.6-1.2) H 09/03/20 06:21 Estimated GFR (MDRD) 43 (>89) L 09/03/20 06:21 Glucose 174 mg/dL (70-100) H 09/03/20 06:21 POC Whole Bld Glucose 202 mg/dL (70 - 100) H 09/03/20 16:35 Estimat Average Glucose 226 mg/dL (70-100) H 09/02/20 06:05 Hemoglobin A1c % 9.5 % (4.27-6.07) H 09/02/20 06:05 Calcium 8.5 mg/dL (8.5-10.3) 09/03/20 06:21 Magnesium 3.1 mg/dL (1.7-2.8) H 09/01/20 14:12 Total Bilirubin 2.3 mg/dL (0.2-1.0) H 09/01/20 14:12 AST 41 IU/L (10-42) 09/01/20 14:12 ALT 29 IU/L (10-60) 09/01/20 14:12 Alkaline Phosphatase 75 IU/L (42-121) 09/01/20 14:12 Ammonia 60.1 umol/L (7-35) H 09/03/20 06:21 Total Protein 5.8 g/dL (6.7-8.2) L 09/01/20 14:12 Albumin 3.7 g/dL (3.2-5.5) 09/01/20 14:12 Globulin 2.1 g/dL (2.1-4.2) 09/01/20 14:12 Albumin/Globulin Ratio 1.8 (1.0-2.2) 09/01/20 14:12 Lipase 110 U/L (22-51) H 09/01/20 14:12 Urine Color YELLOW 09/01/20 18:10 Urine Clarity CLEAR (CLEAR) 09/01/20 18:10 Urine pH 5.5 PH (5.0-7.5) 09/01/20 18:10 Ur Specific [place] 1.020 (1.002-1.030) 09/01/20 18:10 Urine Protein NEGATIVE mg/dL (NEGATIVE) 09/01/20 18:10 Urine Glucose (UA) NEGATIVE mg/dL (NEGATIVE) 09/01/20 18:10 Urine Ketones NEGATIVE mg/dL (NEGATIVE) 09/01/20 18:10 Urine Occult Blood TRACE-INTA (NEGATIVE) 09/01/20 18:10 Urine Nitrite NEGATIVE (NEGATIVE) 09/01/20 18:10 Urine Bilirubin NEGATIVE (NEGATIVE) 09/01/20 18:10 Urine Urobilinogen 0.2 (NORMAL) E.U./dL (NORMAL) 09/01/20 18:10 Ur Leukocyte Esterase NEGATIVE (NEGATIVE) 09/01/20 18:10 Ur Microscopic Review NOT INDICATED 09/01/20 18:10 Urine Culture Comments NOT INDICATED 09/01/20 18:10 Nasal Adenovirus (PCR) NOT DETECTED 09/01/20 16:11 Nasal B. parapertussis DNA (PCR) NOT DETECTED 09/01/20 16:11 Nasal Coronavir 229E PCR NOT DETECTED 09/01/20 16:11 Nasal Coronavir HKU1 PCR NOT DETECTED 09/01/20 16:11 Nasal Coronavir NL63 PCR NOT DETECTED 09/01/20 16:11 Nasal Coronavir OC43 PCR NOT DETECTED 09/01/20 16:11 Nasal Enterovir/Rhinovir PCR NOT DETECTED 09/01/20 16:11 Nasal Influenza B PCR NOT DETECTED 09/01/20 16:11 Nasal Influenza A PCR NOT DETECTED 09/01/20 16:11 Nasal Parainfluen 1 PCR NOT DETECTED 09/01/20 16:11 Nasal Parainfluen 2 PCR NOT DETECTED 09/01/20 16:11 Nasal Parainfluen 3 PCR NOT DETECTED 09/01/20 16:11 Nasal Parainfluen 4 PCR NOT DETECTED 09/01/20 16:11 Nasal RSV (PCR) NOT DETECTED 09/01/20 16:11 Nasal B.pertussis DNA PCR NOT DETECTED 09/01/20 16:11 Nasal C.pneumoniae (PCR) NOT DETECTED 09/01/20 16:11 Natanael Human Metapneumo PCR NOT DETECTED 09/01/20 16:11 Nasal M.pneumoniae (PCR) NOT DETECTED 09/01/20 16:11 Nasal SARS-CoV-2 (PCR) NOT DETECTED 09/01/20 16:11 - Procedures Procedures: Procedures DRAINAGE OF PERITONEAL CAVITY, PERCUTANEOUS APPROACH (03/20/20) ABX Reporting Has patient been on IV antibiotics over the past 48 hours?: No
[2020-09-03] MEDS: INSULIN GLARGINE 300 UNIT/3 ML PEN SUBQ SCH (21:40)
[2020-09-04] MEDS: SODIUM CHLORIDE FLUSH 0.9% 10 ML SYRINGE IVP SCH ×3 (00:19→17:05)
[2020-09-04] MEDS: CALAMINE/ZINC OXIDE 177 ML BOTTLE TOP PRN (01:26)
[2020-09-04] MEDS: HYDROcod/ACETAM 5/325 MG TABLET PO PRN ×4 (01:26→17:04)
[2020-09-04 05:37] LABS: BASOPHILS # (AUTO) 0.1 10^3/uL (0.0-0.1); BASOPHILS % (AUTO) 1.3 %; EOSINOPHILS # (AUTO) 0.2 10^3/uL (0.0-0.7); HCT - HEMATOCRIT 28.5 % (42.0-52.0); HGB - HEMOGLOBIN 9.9 g/dL (14.0-18.0); LYMPHOCYTES # (AUTO) 1.4 10^3/uL (1.5-3.5); LYMPHOCYTES % (AUTO) 24.9 %; MEAN CORPUSCULAR HEMOGLOBIN 32.2 pg (27.0-31.0); MEAN CORPUSCULAR HGB CONC 34.7 g/dL (32.0-36.0); MEAN CORPUSCULAR VOLUME 92.8 fL (80.0-94.0); MEAN PLATELET VOLUME 9.1 fL (7.4-11.4); MONOCYTES % (AUTO) 18.4 %; NEUTROPHILS # (AUTO) 2.8 10^3/uL (1.5-6.6); PLT - PLATELET COUNT 132 10^3/uL (130-450); RED BLOOD COUNT 3.07 10^6/uL (4.70-6.10); RED CELL DISTRIBUTION WIDTH 13.4 % (12.0-15.0); WHITE BLOOD COUNT 5.6 x10^3/uL (4.8-10.8)
[2020-09-04 05:45] LABS: CALCIUM 8.1 mg/dL (8.5-10.3); CREATININE 1.4 mg/dL (0.6-1.2); POTASSIUM 3.9 mmol/L (3.5-5.0)
[2020-09-04] MEDS: INSULIN ASPART 300 UNIT/3 ML PEN SUBQ SCH ×4 (07:35→21:04)
[2020-09-04] MEDS: SPIRONOLACTONE 25 MG TABLET PO SCH ×3 (08:14→17:04)
[2020-09-04] MEDS: LACTULOSE 10 GM /15 ML UDC PO SCH ×2 (08:15→12:55)
[2020-09-04] MEDS: HEPARIN 5,000 UNIT/ML VIAL SUBQ SCH ×2 (08:15→21:03)
[2020-09-04] MEDS: rifAXIMin 550 MG TABLET PO SCH ×2 (08:15→21:03)
[2020-09-04] MEDS: SODIUM CHLORIDE 0.9% 1,000 ML IV SCH (09:52)
[2020-09-04] MEDS: PROCHLORPERAZINE 10 MG/2 ML VIAL IVP PRN ×2 (12:59→21:36)
[2020-09-04] MEDS: LACTULOSE 10 GM/15 ML BOTTLE PO SCH ×2 (17:04→21:08)
--- NOTE | 2020-09-04 19:19 | PROVIDER PROGRESS NOTE ---
Assessment/Plan - Problem List (1) Hepatic encephalopathy Assessment/Plan: Ammonia level worse today at 124. Yesterday it was 61. Continue lactulose 30 mg p.o. 4 times daily. Rifaximin p.o. twice daily added. (2) Alcoholic liver failure Assessment/Plan: Patient's abdomen is even more distended today. However it is soft and nontender. Paracentesis ordered for 09/05/20. (3) Hyponatremia Assessment/Plan: Sodium level is at 125. Will continue to monitor (4) Acute kidney injury Assessment/Plan: Creatinine is improved today at 1.4 with estimated GFR of 53. BUN is 73 (5) Diabetes mellitus, insulin dependent (IDDM), uncontrolled Assessment/Plan: Poorly controlled. Hemoglobin A1c was 9.5. Lantus 65 units subcu every afternoon. Sliding scale insulin and Accu-Cheks. - Current Meds Current Meds: Current Medications Generic Name Dose Route Start Last Admin Trade Name Freq PRN Reason Stop Dose Admin Hydrocodone Bitart/Acetaminophen 1 tab 09/02/20 21:00 09/04/20 17:04 Hydrocod/Acetam 5/325 Mg Tablet PO 1 tab Q4HR PRN Administration PAIN [place] 1 applic 09/02/20 09:30 09/04/20 01:26 Calamine/Zinc Oxide 177 Ml Bottle TOP 1 applic Q6HR PRN Administration ITCHING Heparin Sodium (Porcine) 5,000 unit 09/01/20 21:00 09/04/20 08:15 Heparin 5,000 Unit/Ml Vial SUBQ 5,000 unit BID JOY Administration Sodium Chloride 1,000 mls @ 83.33 mls/hr 09/02/20 09:15 09/04/20 09:52 Normal Saline 0.9% IV 83.33 mls/hr .Q12H1M JOY Administration Insulin Aspart 3 - 11 unit 09/01/20 17:00 09/04/20 17:05 Insulin Aspart 300 Unit/3 Ml Pen SUBQ 5 unit 0800,1200,1700,2100 JOY Administration Protocol Insulin Glargine 65 unit 09/01/20 21:00 09/03/20 21:40 Insulin Glargine 300 Unit/3 Ml Pen SUBQ 65 unit QPM JOY Administration Lactulose 30 gm 09/04/20 17:00 09/04/20 17:04 Lactulose 10 Gm/15 Ml Bottle PO 30 gm QID JOY Administration Lidocaine 1 patch 09/02/20 09:30 09/03/20 12:16 Lidocaine Patch 5% TOP 1 patch DAILY PRN Administration PAIN Prochlorperazine Edisylate 10 mg 09/01/20 15:45 09/04/20 12:59 Prochlorperazine 10 Mg/2 Ml Vial IVP 10 mg Q6HR PRN Administration Nausea / Vomiting Rifaximin 550 mg 09/04/20 09:00 09/04/20 08:15 Rifaximin 550 Mg Tablet PO 550 mg BID JOY Administration Sodium Chloride 10 ml 09/01/20 17:00 09/04/20 17:05 Sodium Chloride Flush 0.9% 10 Ml Syringe IVP Not Given 0100,0900,1700 JOY Spironolactone 25 mg 09/02/20 12:00 09/04/20 17:04 Spironolactone 25 Mg Tablet PO 25 mg TIDWM JOY Administration - Lab Result Fish Bone Diagrams: 09/04/20 05:29 09/04/20 05:29 - Additional Planning My Orders: My Active Orders 09/04/20 09:00 rifAXIMin [Xifaxan] 550 mg PO BID Subjective - Subjective Patient Reports: Other (Resting comfortably. Abdomen is protoberant today. Denies any other complain.) Objective Vital Signs: Vital Signs - 24 hr 09/03/20 09/03/20 09/04/20 20:34 23:36 05:00 Temperature 36.5 C 36.5 C 36.5 C Heart Rate [ 92 90 82 Brachial] Respiratory 16 14 14 Rate Blood Pressure 113/74 122/73 111/60 [Right Brachial artery] O2 Saturation 100 100 97 09/04/20 09/04/20 09/04/20 07:30 11:18 16:02 Temperature 36.5 C 36.4 C L 36.2 C L Heart Rate [ 92 89 95 Brachial] Respiratory 16 16 18 Rate Blood Pressure 113/68 122/76 115/76 [Right Brachial artery] O2 Saturation 100 98 98 Oxygen O2 Source Room air I&O (Last 24 Hrs): Intake and Output Totals x24h 09/02/20 09/03/20 09/04/20 23:59 23:59 23:59 Intake Total 4739.58 2717.425 2280 Output Total 1999 1329 1999 Balance 2739.58 1387.425 280 General: Alert, Oriented x3, No acute distress HEENT: PERRLA, EOMI Neck: Supple, No JVD Neuro: Alert, Non Focal, Oriented Times 3 Cardiovascular: Regular rate Respiratory: Chest non-tender, No respiratory distress, Breath sounds nml Abdomen: Normal bowel sounds, Soft, Other (Protuberant abdomen) Extremities: No clubbing, No edema Skin: No rashes, No breakdown - Results Results: Laboratory Results WBC 5.6 x10^3/uL (4.8-10.8) 09/04/20 05:29 RBC 3.07 10^6/uL (4.70-6.10) L 09/04/20 05:29 Hgb 9.9 g/dL (14.0-18.0) L 09/04/20 05:29 Hct 28.5 % (42.0-52.0) L 09/04/20 05:29 MCV 92.8 fL (80.0-94.0) 09/04/20 05:29 MCH 32.2 pg (27.0-31.0) H 09/04/20 05:29 MCHC 34.7 g/dL (32.0-36.0) 09/04/20 05:29 RDW 13.4 % (12.0-15.0) 09/04/20 05:29 Plt Count 132 10^3/uL (130-450) 09/04/20 05:29 MPV 9.1 fL (7.4-11.4) 09/04/20 05:29 Neut # (Auto) 2.8 10^3/uL (1.5-6.6) 09/04/20 05:29 Lymph # (Auto) 1.4 10^3/uL (1.5-3.5) L 09/04/20 05:29 [place] # (Auto) 1.0 10^3/uL (0.0-1.0) 09/04/20 05:29 Eos # (Auto) 0.2 10^3/uL (0.0-0.7) 09/04/20 05:29 Baso # (Auto) 0.1 10^3/uL (0.0-0.1) 09/04/20 05:29 Absolute Nucleated RBC 0.00 x10^3/uL 09/04/20 05:29 Nucleated RBC % 0.0 /100WBC 09/04/20 05:29 PT 14.0 secs (9.9-12.6) H 09/01/20 14:12 INR 1.3 (0.8-1.2) H 09/01/20 14:12 APTT 30.5 secs (24.9-33.3) 09/01/20 14:12 Sodium 125 mmol/L (135-145) L 09/04/20 05:29 Potassium 3.9 mmol/L (3.5-5.0) 09/04/20 05:29 Chloride 95 mmol/L (101-111) L 09/04/20 05:29 Carbon Dioxide 22 mmol/L (21-32) 09/04/20 05:29 Anion Gap 8.0 (6-13) 09/04/20 05:29 BUN 73 mg/dL (6-20) H 09/04/20 05:29 Creatinine 1.4 mg/dL (0.6-1.2) H 09/04/20 05:29 Estimated GFR (MDRD) 53 (>89) L 09/04/20 05:29 Glucose 171 mg/dL (70-100) H 09/04/20 05:29 POC Whole Bld Glucose 210 mg/dL (70 - 100) H 09/04/20 16:45 Estimat Average Glucose 226 mg/dL (70-100) H 09/02/20 06:05 Hemoglobin A1c % 9.5 % (4.27-6.07) H 09/02/20 06:05 Calcium 8.1 mg/dL (8.5-10.3) L 09/04/20 05:29 Magnesium 3.1 mg/dL (1.7-2.8) H 09/01/20 14:12 Total Bilirubin 2.3 mg/dL (0.2-1.0) H 09/01/20 14:12 AST 41 IU/L (10-42) 09/01/20 14:12 ALT 29 IU/L (10-60) 09/01/20 14:12 Alkaline Phosphatase 75 IU/L (42-121) 09/01/20 14:12 Ammonia 124.1 umol/L (7-35) H* 09/04/20 05:29 Total Protein 5.8 g/dL (6.7-8.2) L 09/01/20 14:12 Albumin 3.7 g/dL (3.2-5.5) 09/01/20 14:12 Globulin 2.1 g/dL (2.1-4.2) 09/01/20 14:12 Albumin/Globulin Ratio 1.8 (1.0-2.2) 09/01/20 14:12 Lipase 110 U/L (22-51) H 09/01/20 14:12 Urine Color YELLOW 09/01/20 18:10 Urine Clarity CLEAR (CLEAR) 09/01/20 18:10 Urine pH 5.5 PH (5.0-7.5) 09/01/20 18:10 Ur Specific [place] 1.020 (1.002-1.030) 09/01/20 18:10 Urine Protein NEGATIVE mg/dL (NEGATIVE) 09/01/20 18:10 Urine Glucose (UA) NEGATIVE mg/dL (NEGATIVE) 09/01/20 18:10 Urine Ketones NEGATIVE mg/dL (NEGATIVE) 09/01/20 18:10 Urine Occult Blood TRACE-INTA (NEGATIVE) 09/01/20 18:10 Urine Nitrite NEGATIVE (NEGATIVE) 09/01/20 18:10 Urine Bilirubin NEGATIVE (NEGATIVE) 09/01/20 18:10 Urine Urobilinogen 0.2 (NORMAL) E.U./dL (NORMAL) 09/01/20 18:10 Ur Leukocyte Esterase NEGATIVE (NEGATIVE) 09/01/20 18:10 Ur Microscopic Review NOT INDICATED 09/01/20 18:10 Urine Culture Comments NOT INDICATED 09/01/20 18:10 Nasal Adenovirus (PCR) NOT DETECTED 09/01/20 16:11 Nasal B. parapertussis DNA (PCR) NOT DETECTED 09/01/20 16:11 Nasal Coronavir 229E PCR NOT DETECTED 09/01/20 16:11 Nasal Coronavir HKU1 PCR NOT DETECTED 09/01/20 16:11 Nasal Coronavir NL63 PCR NOT DETECTED 09/01/20 16:11 Nasal Coronavir OC43 PCR NOT DETECTED 09/01/20 16:11 Nasal Enterovir/Rhinovir PCR NOT DETECTED 09/01/20 16:11 Nasal Influenza B PCR NOT DETECTED 09/01/20 16:11 Nasal Influenza A PCR NOT DETECTED 09/01/20 16:11 Nasal Parainfluen 1 PCR NOT DETECTED 09/01/20 16:11 Nasal Parainfluen 2 PCR NOT DETECTED 09/01/20 16:11 Nasal Parainfluen 3 PCR NOT DETECTED 09/01/20 16:11 Nasal Parainfluen 4 PCR NOT DETECTED 09/01/20 16:11 Nasal RSV (PCR) NOT DETECTED 09/01/20 16:11 Nasal B.pertussis DNA PCR NOT DETECTED 09/01/20 16:11 Nasal C.pneumoniae (PCR) NOT DETECTED 09/01/20 16:11 Natanael Human Metapneumo PCR NOT DETECTED 09/01/20 16:11 Nasal M.pneumoniae (PCR) NOT DETECTED 09/01/20 16:11 Nasal SARS-CoV-2 (PCR) NOT DETECTED 09/01/20 16:11 - Procedures Procedures: Procedures DRAINAGE OF PERITONEAL CAVITY, PERCUTANEOUS APPROACH (03/20/20) ABX Reporting Has patient been on IV antibiotics over the past 48 hours?: No
[2020-09-04] MEDS: INSULIN GLARGINE 300 UNIT/3 ML PEN SUBQ SCH (21:03)
[2020-09-04] MEDS: SODIUM CHLORIDE FLUSH 0.9% 10 ML SYRINGE IVP PRN (21:44)
[2020-09-05] MEDS: HYDROcod/ACETAM 5/325 MG TABLET PO PRN ×3 (00:02→16:29)
[2020-09-05] MEDS: SODIUM CHLORIDE FLUSH 0.9% 10 ML SYRINGE IVP SCH ×3 (00:03→17:28)
[2020-09-05 05:50] LABS: BASOPHILS # (AUTO) 0.1 10^3/uL (0.0-0.1); BASOPHILS % (AUTO) 1.9 %; EOSINOPHILS # (AUTO) 0.2 10^3/uL (0.0-0.7); EOSINOPHILS % (AUTO) 4.1 %; HCT - HEMATOCRIT 32.3 % (42.0-52.0); HGB - HEMOGLOBIN 11.4 g/dL (14.0-18.0); LYMPHOCYTES # (AUTO) 1.3 10^3/uL (1.5-3.5); LYMPHOCYTES % (AUTO) 22.2 %; MEAN CORPUSCULAR HEMOGLOBIN 33.3 pg (27.0-31.0); MEAN CORPUSCULAR HGB CONC 35.3 g/dL (32.0-36.0); MEAN CORPUSCULAR VOLUME 94.4 fL (80.0-94.0); MEAN PLATELET VOLUME 9.8 fL (7.4-11.4); MONOCYTES # (AUTO) 1.2 10^3/uL (0.0-1.0); MONOCYTES % (AUTO) 19.8 %; NEUTROPHILS # (AUTO) 3.1 10^3/uL (1.5-6.6); NEUTROPHILS % (AUTO) 51.7 %; PLT - PLATELET COUNT 162 10^3/uL (130-450); RED BLOOD COUNT 3.42 10^6/uL (4.70-6.10); RED CELL DISTRIBUTION WIDTH 13.3 % (12.0-15.0); WHITE BLOOD COUNT 5.9 x10^3/uL (4.8-10.8)
[2020-09-05 05:56] LABS: CALCIUM 8.5 mg/dL (8.5-10.3); CREATININE 1.5 mg/dL (0.6-1.2); POTASSIUM 3.7 mmol/L (3.5-5.0)
[2020-09-05] MEDS: INSULIN ASPART 300 UNIT/3 ML PEN SUBQ SCH ×4 (08:00→21:34)
[2020-09-05] MEDS: LIDOCAINE PATCH 5% TOP PRN (08:11)
[2020-09-05] MEDS: SPIRONOLACTONE 25 MG TABLET PO SCH ×3 (08:12→17:26)
[2020-09-05] MEDS: LACTULOSE 10 GM/15 ML BOTTLE PO SCH ×5 (08:12→21:41)
[2020-09-05] MEDS: rifAXIMin 550 MG TABLET PO SCH ×2 (08:12→21:37)
[2020-09-05] MEDS: HEPARIN 5,000 UNIT/ML VIAL SUBQ SCH ×2 (08:12→21:33)
[2020-09-05] MEDS: SODIUM CHLORIDE FLUSH 0.9% 10 ML SYRINGE IVP PRN (10:51)
[2020-09-05] MEDS: ONDANSETRON 4 MG/2 ML VIAL IVP PRN (10:51)
[2020-09-05 11:08] LABS: INR 1.1 (0.8-1.2); PT - PROTHROMBIN TIME 12.2 secs (9.9-12.6)
[2020-09-05] MEDS: ALBUMIN 25% 12.5 GM/50 ML VIAL IV SCH ×3 (14:10→15:26)
--- NOTE | 2020-09-05 15:20 | PROVIDER PROGRESS NOTE ---
Subjective - Prog Note Date Prog Note Date: 09/05/20 - Subjective Pt reports feeling: No change Subjective: Patient had paracentesis done on today, patient was taken 9 L of fluids from paracentesis. Patient feels very weak and fatigued. his ammonia level is still at 89. Patient refused one-time of lactulose in the morning. After I discussed with the patient the care plan, He state he will take meds as the scheduled in hospital and Patient prefer to have palliative consult as out-pt with his PCP. Patient denies abdominal pain, fever, chest pain Current Medications - Current Medications Current Medications: Active Medications Hydrocodone Bitart/Acetaminophen (Hydrocod/Acetam 5/325 Mg Tablet) 1 tab PO Q4HR PRN PRN Reason: PAIN Last Admin: 09/05/20 08:11 Dose: 1 tab Documented by: Albuterol (Albuterol Neb 2.5 Mg/3 Ml) 2.5 mg INH RTQ4H PRN PRN Reason: Wheezing Calamine (Calamine/Zinc Oxide 177 Ml Bottle) 1 applic TOP Q6HR PRN PRN Reason: ITCHING Last Admin: 09/04/20 01:26 Dose: 1 applic Documented by: Heparin Sodium (Porcine) (Heparin 5,000 Unit/Ml Vial) 5,000 unit SUBQ BID [facility] Last Admin: 09/05/20 08:12 Dose: Not Given Documented by: Hydralazine HCl (Hydralazine Inj 20 Mg/Ml Vial) 10 mg IVP QID PRN PRN Reason: Hypertensive Emergency Sodium Chloride (Normal Saline 0.9%) 1,000 mls @ 83.3 mls/hr IV .Q12H1M [facility] Stop: 09/06/20 16:00 Insulin Aspart (Insulin Aspart 300 Unit/3 Ml Pen) 3 - 11 unit SUBQ 0800,1200,1700,2100 [facility]; Protocol Last Admin: 09/05/20 11:16 Dose: Not Given Documented by: Insulin Glargine (Insulin Glargine 300 Unit/3 Ml Pen) 65 unit SUBQ QPM [facility] Last Admin: 09/04/20 21:03 Dose: 65 unit Documented by: Lactulose (Lactulose 10 Gm/15 Ml Bottle) 30 gm PO QID [facility] Last Admin: 09/05/20 14:01 Dose: 30 gm Documented by: Lidocaine (Lidocaine Patch 5%) 1 patch TOP DAILY PRN PRN Reason: PAIN Last Admin: 09/05/20 08:11 Dose: 1 patch Documented by: Multivitamins/Minerals (Multivitamin W/Minerals Tablet) 1 tab PO DAILYWM [facility] Ondansetron HCl (Ondansetron 4 Mg/2 Ml Vial) 4 mg IVP Q6HR PRN PRN Reason: Nausea / Vomiting Last Admin: 09/05/20 10:51 Dose: 4 mg Documented by: Prochlorperazine Edisylate (Prochlorperazine 10 Mg/2 Ml Vial) 10 mg IVP Q6HR PRN PRN Reason: Nausea / Vomiting Last Admin: 09/04/20 21:36 Dose: 10 mg Documented by: Rifaximin (Rifaximin 550 Mg Tablet) 550 mg PO BID [facility] Last Admin: 09/05/20 08:12 Dose: 550 mg Documented by: Sodium Chloride (Sodium Chloride Flush 0.9% 10 Ml Syringe) 10 ml IVP PRN PRN PRN Reason: NEEDED PER PROVIDER ORDERS Last Admin: 09/05/20 10:51 Dose: 10 ml Documented by: Sodium Chloride (Sodium Chloride Flush 0.9% 10 Ml Syringe) 10 ml IVP 0100,0900,1700 [facility] Last Admin: 09/05/20 08:12 Dose: 10 ml Documented by: Spironolactone (Spironolactone 25 Mg Tablet) 25 mg PO TIDWM [facility] Last Admin: 09/05/20 14:00 Dose: 25 mg Documented by: Albuterol Sulfate [Proair Hfa Inhaler] 1 - 2 puffs INH Q4H PRN 11/13/16 Aspirin [Adult Low Dose Aspirin EC] 81 mg PO DAILY 11/13/16 Insulin Glargine,Hum.rec.anlog [Basaglar Kwikpen U-100] 65 units SUBQ DAILY PM 11/13/16 Insulin Regular, Human [Humulin R] 5 - 20 units SUBQ TIDWM 11/13/16 buPROPion HCL [Bupropion HCl Sr] 150 mg PO BID 02/15/20 Metformin HCl [Glucophage] 1,000 mg PO BID 09/02/20 Sodium Polystyrene Sulfonate 15 g PO BID PRN 09/02/20 Objective - Vital Signs/Intake & Output Vital Signs: Vital Signs x48h Temp Pulse Pulse Resp BP Pulse Ox 09/05/20 13:45 90 114/68 09/05/20 11:06 36.3 C L 91 17 109/69 100 09/05/20 09:15 16 L 101 H 09/05/20 07:24 36.5 C 101 H 16 124/68 99 Intake & Output: Intake & Output 09/02/20 09/03/20 09/04/20 09/05/20 23:59 23:59 23:59 23:59 Intake Total 4739.58 2717.425 3600 530 Output Total 1999 1330 3650 850 Balance 2739.58 1387.425 -50 -320 - Objective General Appearance: positive: No acute distress, Alert. negative: Lethargic Eyes Bilateral: positive: Normal inspection, PERRL, No lid inflammation ENT: positive: ENT inspection nml, Dry mucous membranes. negative: Purulent n la nena drainage Neck: positive: Nml inspection, Trachea midline. negative: Thyromegaly, Tracheal deviation Respiratory: positive: Chest non-tender, No respiratory distress. negative: Wheezes Cardiovascular: positive: Regular rate & rhythm, No murmur. negative: Tachycardia, Bradycardia, Systolic murmur, Diastolic murmur Peripheral Pulses: 2+ Radial (R), 2+ Radial (L) Abdomen: positive: Non-tender, Nml bowel sounds. negative: Tenderness, Guarding Back: positive: Nml inspection Skin: positive: Color nml, Warm, Dry. negative: Cyanosis Extremities: positive: Non-tender, Full ROM, Nml appearance. negative: Calf tenderness Neurologic/Psychiatric: positive: Oriented x3, Motor nml, Sensation nml. negative: Weakness, Sensory loss, Facial droop, Slurred/abnml speech, Depressed mood/affect - Lab Results Fish Bones: 09/05/20 05:32 09/05/20 05:32 Other Labs: Lab Results x24hrs 09/05/20 09/05/20 09/05/20 Range/Units 14:25 11:02 07:19 WBC (4.8-10.8) x10^3/uL RBC (4.70-6.10) 10^6/uL Hgb (14.0-18.0) g/dL Hct (42.0-52.0) % MCV (80.0-94.0) fL MCH (27.0-31.0) pg MCHC (32.0-36.0) g/dL RDW (12.0-15.0) % Plt Count (130-450) 10^3/uL MPV (7.4-11.4) fL Neut # (Auto) (1.5-6.6) 10^3/uL Lymph # (Auto) (1.5-3.5) 10^3/uL [place] # (Auto) (0.0-1.0) 10^3/uL Eos # (Auto) (0.0-0.7) 10^3/uL Baso # (Auto) (0.0-0.1) 10^3/uL Absolute Nucleated RBC x10^3/uL Nucleated RBC % /100WBC PT (9.9-12.6) secs INR (0.8-1.2) Sodium (135-145) mmol/L Potassium (3.5-5.0) mmol/L Chloride (101-111) mmol/L Carbon Dioxide (21-32) mmol/L Anion Gap (6-13) BUN (6-20) mg/dL Creatinine (0.6-1.2) mg/dL Estimated GFR (MDRD) (>89) Glucose (70-100) mg/dL POC Whole Bld Glucose 103 H 122 H (70 - 100) mg/dL Calcium (8.5-10.3) mg/dL Ammonia 89.9 H* (7-35) umol/L 09/05/20 09/05/20 09/05/20 Range/Units 05:32 05:32 05:32 WBC 5.9 (4.8-10.8) x10^3/uL RBC 3.42 L (4.70-6.10) 10^6/uL Hgb 11.4 L (14.0-18.0) g/dL Hct 32.3 L (42.0-52.0) % MCV 94.4 H (80.0-94.0) fL MCH 33.3 H (27.0-31.0) pg MCHC 35.3 (32.0-36.0) g/dL RDW 13.3 (12.0-15.0) % Plt Count 162 (130-450) 10^3/uL MPV 9.8 (7.4-11.4) fL Neut # (Auto) 3.1 (1.5-6.6) 10^3/uL Lymph # (Auto) 1.3 L (1.5-3.5) 10^3/uL [place] # (Auto) 1.2 H (0.0-1.0) 10^3/uL Eos # (Auto) 0.2 (0.0-0.7) 10^3/uL Baso # (Auto) 0.1 (0.0-0.1) 10^3/uL Absolute Nucleated RBC 0.00 x10^3/uL Nucleated RBC % 0.0 /100WBC PT 12.2 (9.9-12.6) secs INR 1.1 (0.8-1.2) Sodium 128 L (135-145) mmol/L Potassium 3.7 (3.5-5.0) mmol/L Chloride 96 L (101-111) mmol/L Carbon Dioxide 23 (21-32) mmol/L Anion Gap 9.0 (6-13) BUN 70 H (6-20) mg/dL Creatinine 1.5 H (0.6-1.2) mg/dL Estimated GFR (MDRD) 49 L (>89) Glucose 144 H (70-100) mg/dL POC Whole Bld Glucose (70 - 100) mg/dL Calcium 8.5 (8.5-10.3) mg/dL Ammonia (7-35) umol/L 09/05/20 09/04/20 09/04/20 Range/Units 05:32 20:44 16:45 WBC (4.8-10.8) x10^3/uL RBC (4.70-6.10) 10^6/uL Hgb (14.0-18.0) g/dL Hct (42.0-52.0) % MCV (80.0-94.0) fL MCH (27.0-31.0) pg MCHC (32.0-36.0) g/dL RDW (12.0-15.0) % Plt Count (130-450) 10^3/uL MPV (7.4-11.4) fL Neut # (Auto) (1.5-6.6) 10^3/uL Lymph # (Auto) (1.5-3.5) 10^3/uL [place] # (Auto) (0.0-1.0) 10^3/uL Eos # (Auto) (0.0-0.7) 10^3/uL Baso # (Auto) (0.0-0.1) 10^3/uL Absolute Nucleated RBC x10^3/uL Nucleated RBC % /100WBC PT (9.9-12.6) secs INR (0.8-1.2) Sodium (135-145) mmol/L Potassium (3.5-5.0) mmol/L Chloride (101-111) mmol/L Carbon Dioxide (21-32) mmol/L Anion Gap (6-13) BUN (6-20) mg/dL Creatinine (0.6-1.2) mg/dL Estimated GFR (MDRD) (>89) Glucose (70-100) mg/dL POC Whole Bld Glucose 223 H 210 H (70 - 100) mg/dL Calcium (8.5-10.3) mg/dL Ammonia 93.8 H* (7-35) umol/L ABX Reporting Has patient been on IV antibiotics over the past 48 hours?: No Assessment/Plan - Problem List (1) Hepatic encephalopathy Impression: Ammonia level is still at 90. pt present very fatigued and profound weakness. pt refused once lactulose, but he promise he will take meds as the schedule. Patient had a paracentesis on today, 9 L of fluids was taken from the paracentesis. Albumin infusion was done for patient. Continue lactulose 30 mg p.o. 4 times daily. and Rifaximin p.o. twice daily added. Patient prefer to have palliative care consult as outpatient with his PCP (2)profound weakness pt present very fatigued and profound weakness after he had Paracentesis. Patient had multi-factors to cause his weakness including Hepatic failure With elevated ammonia level, twice paracentesis per week, large fluid taken from paracentesis, Hyponatremia, poor control diabetic, Also with the patient medical noncompliance. At this point, we will continue lactulose and Rafiximin, continue lab monitor of ammonia level, consult with palliative care as out-pt per pt's prefer. (3) Alcoholic liver failure at this point, pt prefer to have palliative care consult as out-pt setting. 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 (4) Hyponatremia improve, NA is 128. Patient likely to have Hypovolemia with hyponatremia, will start with gently IV of NS, continue lab monitor (5) Acute kidney injury Creatinine is improved today at 1.5. But pt clinic show dehydration, we will start with gently IV of NS, continue lab monitor (6) Diabetes mellitus, insulin dependent (IDDM), uncontrolled Assessment/Plan: Poorly controlled. Hemoglobin A1c was 9.5. continue home Lantus 65 units subcu every afternoon, continue slide scale, and hypoglycemia protocol
[2020-09-05] MEDS: SODIUM CHLORIDE 0.9% 1,000 ML IV SCH (16:21)
--- NOTE | 2020-09-05 16:22 | Ultrasound Report ---
PROCEDURE: Abdominal Paracentesis INDICATIONS: ascites 2/2 cirrhosis TECHNIQUE: The indications, alternatives, benefits, risks, and complications of the procedure were explained to the patient. Written informed consent was obtained and placed in the chart. The abdomen and pelvis were examined sonographically, and an appropriate site was chosen for paracentesis. The skin was pre pared and draped in the usual sterile fashion, and 1% lidocaine was infiltrated from the skin down th rough the peritoneal surface. A 19-gauge catheter-covered needle was then introduced into the perito valerie space, the catheter was advanced and the needle was withdrawn, and thereafter peritoneal fluid w as withdrawn. The catheter was then removed and a dressing was applied. The fluid was discarded if the clinician did not order diagnostic testing of the fluid. COMPARISON: 09/01/2020 FINDINGS: Access site: Right lower quadrant of the anterior abdominal wall Needle: One-Step centesis catheter with introducer needle. Fluid volume and description: 9.0 L of cloudy, serosanguineous ascites. Fluid sent for diagnostic testing: None Medications: 1% lidocaine for local anaesthesia. Complications: None. IMPRESSION: Successful ultrasound-guided paracentesis. Reviewed by: Negrito Glez MD on 09/05/2020 4:21 PM PDT Approved by: Negrito Glez MD on 09/05/2020 4:21 PM PDT Station ID: [id number]
[2020-09-05] MEDS: MULTIVITAMIN W/MINERALS TABLET PO SCH (16:29)
[2020-09-05] MEDS: CALAMINE/ZINC OXIDE 177 ML BOTTLE TOP PRN (16:32)
[2020-09-05] MEDS: INSULIN GLARGINE 300 UNIT/3 ML PEN SUBQ SCH (21:35)
[2020-09-06] MEDS: SODIUM CHLORIDE FLUSH 0.9% 10 ML SYRINGE IVP SCH ×2 (03:37→09:34)
[2020-09-06] MEDS: CALAMINE/ZINC OXIDE 177 ML BOTTLE TOP PRN (03:45)
[2020-09-06] MEDS: SODIUM CHLORIDE 0.9% 1,000 ML IV SCH (04:22)
[2020-09-06] MEDS: HYDROcod/ACETAM 5/325 MG TABLET PO PRN (04:23)
[2020-09-06 05:44] LABS: BASOPHILS # (AUTO) 0.1 10^3/uL (0.0-0.1); BASOPHILS % (AUTO) 1.2 %; EOSINOPHILS # (AUTO) 0.2 10^3/uL (0.0-0.7); EOSINOPHILS % (AUTO) 3.1 %; HCT - HEMATOCRIT 30.5 % (42.0-52.0); HGB - HEMOGLOBIN 10.5 g/dL (14.0-18.0); LYMPHOCYTES % (AUTO) 19.4 %; MEAN CORPUSCULAR HGB CONC 34.4 g/dL (32.0-36.0); MEAN PLATELET VOLUME 9.8 fL (7.4-11.4); MONOCYTES # (AUTO) 0.9 10^3/uL (0.0-1.0); MONOCYTES % (AUTO) 17.5 %; NEUTROPHILS % (AUTO) 58.6 %; PLT - PLATELET COUNT 134 10^3/uL (130-450); RED BLOOD COUNT 3.28 10^6/uL (4.70-6.10); RED CELL DISTRIBUTION WIDTH 13.4 % (12.0-15.0); WHITE BLOOD COUNT 5.1 x10^3/uL (4.8-10.8)
[2020-09-06 05:53] LABS: CALCIUM 8.4 mg/dL (8.5-10.3); CREATININE 1.4 mg/dL (0.6-1.2); POTASSIUM 4.1 mmol/L (3.5-5.0)
[2020-09-06] MEDS: ONDANSETRON 4 MG/2 ML VIAL IVP PRN (07:03)
[2020-09-06] MEDS: INSULIN ASPART 300 UNIT/3 ML PEN SUBQ SCH (07:27)
--- NOTE | 2020-09-06 08:35 | Discharge Plan ---
Discharge Plan Problem Reviewed?: Yes Disposition: Home, Self Care Condition: Poor Prescriptions: rifAXIMin [Xifaxan] 550 mg PO BID #60 tablet Diet: Diabetic Activity Restrictions: Activity as Tolerated Shower Restrictions: No (fall precaution) Instruction Topics: Rifaximin tablets, Metformin tablets Health Concerns: hepatic encephalopathy, ERICK, uncontrolled diabetes, medical noncompliance Plan of Treatment: You may resume your home Paracentesis schedule, do medical compliance. new medication Rifaximin is prescribed for you to lower your ammonia level. you may have palliative care consult as out-pt. Your Metformin is hold since your glucose is good controlled in hospital and help preserve for your kidney function. Care Goals: stabilization and improvement of your medical conditions Assessment: discussed the care plan with you, answered your questions, you understood Additional Instructions or Follow Up instructions: You may followup with your PCP in one week, may have suture gauger consult as out-pt. Should your symptoms return or worsen, you may present ER or call 911 for help. No Smoking: If you smoke, Please STOP! Call for help.
[2020-09-06 08:50] VITALS: BP 127/66
[2020-09-06] MEDS: LIDOCAINE PATCH 5% TOP PRN (09:32)
[2020-09-06] MEDS: HEPARIN 5,000 UNIT/ML VIAL SUBQ SCH (09:34)
[2020-09-06] MEDS: SPIRONOLACTONE 25 MG TABLET PO SCH (09:34)
[2020-09-06] MEDS: MULTIVITAMIN W/MINERALS TABLET PO SCH (09:34)
[2020-09-06] MEDS: rifAXIMin 550 MG TABLET PO SCH (09:34)
[2020-09-06] MEDS: LACTULOSE 10 GM/15 ML BOTTLE PO SCH (09:35)
--- NOTE | 2020-09-06 10:40 | DISCHARGE SUMMARY ---
Discharge Summary Admit Date: 09/01/20 Discharge Date: 09/06/20 Discharging Provider: Herbert Chavez Condition at Discharge: Poor Discharge Disposition: 01 Home, Self Care Discharge Facility Name: home - DIAGNOSES Discharge Diagnoses with Status of Each Condition: (1) Hepatic encephalopathy pt is alert and oriented plus 4. his ammonia level is down to 88 now. educate and strongly advise pt do medical compliance. pt is prescribed new medication Rifaximin. [place] [facility]. pt state he will his PCP on tomorrow. advise pt has out-pt palliative care consult which it is his prefer to have out-pt palliative consult. Followup with hat ironer as out-pt. pt had Paracentasis on yesterday with albumin infusion, patient had 9 liter fluids From Paracentasis. (2)profound weakness improved. pt strongly request to be d/c in the morning. (3) Alcoholic liver failure at this point, pt prefer to have palliative care consult as out-pt setting. Followup with hat ironer as out-pt. (4) Hyponatremia improve, NA is 129 as his baseline. (5) Acute kidney injury improved. Creatinine is improved today at 1.4 (6) Diabetes mellitus, insulin dependent (IDDM), uncontrolled resume home insulin schedule, advise pt do medical compliance as well. pt's home Metformin is on hold since patient's home insulin schedule is good control to his glucose level in the hospital. pt had elevated creatinine. pt also report mi ld diarrhea in which Metformin could cause. (7)medical noncompliance it is pt's long time medical problem. educate and strongly advise pt do medical compliance. - HPI History of Present Illness: This is a 50-year-old male with a PMH significant for alcohol abuse, alcoholic cirrhosis with ascites which required twice Paracentesis and albumin infusion, Hepatic encephalopathy in the past, hyponatremia, and poor controlled type 2 diabetes who presents ER for nausea, weak and some confused. Patient Was [place] [facility] for parasenthesis and albumnin infusion. Patient was reported to have nausea, weakness, and confused after Paracentesis. Pt is poor historian. But he did report "some time I just take a little bit of Lactulose." Routine laboratory tests show patient had an ammonia level over 150, BUN 100, creatinine 2.3, sodium 120, glucose 265. pt was d/c to home 5 days. Patient was found to have hepatic encephalopathy. pt was prescribed Lactulose to home. pt has hx of medical noncompliance. Given above medical condition, medical team was consulted for the admission. - HOSPITAL COURSE Hospital Course: Patient was admitted for nausea, weakness, and confused after Paracentesis. Patient was found to have an ammonia level at 152. Patient did admit he did not do medical compliance. Patient was ordered lactulose and rifaximin in hospital, resume his home insulin schedule. Then patient's ammonia level is gradually down to 88. Patient become orientated +4 and alert. Patient had a one-time paracentesis done in This time hospitalization, And had albumin infusion. - ALLERGIES Allergies/Adverse Reactions: Allergies Allergy/AdvReac Type Severity Reaction Status Date / Time cantaloupe Allergy Anaphylaxis Verified 09/05/20 13:50 melon Allergy Anaphylaxis Verified 09/05/20 13:52 lisinopril AdvReac Respiratory Verified 09/05/20 13:50 - MEDICATIONS Home Medications: Ambulatory Orders Medication Instructions Recorded Confirmed Albuterol Sulfate [Proair Hfa 1 - 2 puffs INH Q4H PRN 11/13/16 09/02/20 Inhaler] Aspirin [Adult Low Dose Aspirin EC] 81 mg PO DAILY 11/13/16 09/02/20 Insulin Glargine,Hum.rec.anlog 65 units SUBQ DAILY PM 11/13/16 09/02/20 [Basaglar Kwikpen U-100] Insulin Regular, Human [Humulin R] 5 - 20 units SUBQ TIDWM 11/13/16 09/02/20 buPROPion HCL [Bupropion HCl Sr] 150 mg PO BID 02/15/20 09/02/20 Multivitamin W/Minerals [Theragran 1 tab PO DAILY #30 tablet 03/29/20 09/02/20 M] Lactulose 30 gm PO TIDWM #100 bottle 08/29/20 09/02/20 Tamsulosin [Flomax] 0.4 mg PO DAILY #30 cap 08/29/20 09/02/20 Sodium Polystyrene Sulfonate 15 g PO BID PRN 09/02/20 09/02/20 rifAXIMin [Xifaxan] 550 mg PO BID #60 tablet 09/06/20 - PHYSICAL EXAM AT DISCHARGE General Appearance: positive: No acute distress, Alert. negative: Lethargic Eyes Bilateral: positive: Normal inspection, PERRL, No lid inflammation ENT: positive: ENT inspection nml, No signs of dehydration. negative: Purulent nasal drainage Neck: positive: Nml inspection, Trachea midline. negative: Thyromegaly, Tracheal deviation Respiratory: positive: Chest non-tender, No respiratory distress. negative: Wheezes, Rales Cardiovascular: positive: Regular rate & rhythm, No murmur. negative: Tachycardia, Bradycardia, Systolic murmur, Diastolic murmur Peripheral Pulses: positive: 2+ Abdomen: positive: Non-tender, Nml bowel sounds, No distention. negative: Tenderness Back: positive: Nml inspection Skin: positive: Color nml, Warm, Dry. negative: Cyanosis, Diaphoresis Extremities: positive: Non-tender, Full ROM, Nml appearance. negative: Calf tenderness Neurologic/Psychiatric: positive: Oriented x3, Motor nml, Sensation nml. negative: Weakness, Sensory loss, Facial droop, Slurred/abnml speech, Depressed mood/affect - LABS Result Diagrams: 09/06/20 05:28 09/06/20 05:28 - FOLLOW UP Follow Up: You may resume your home Paracentesis schedule, do medical compliance. new medication Rifaximin is prescribed for you to lower your ammonia level. you may have palliative care consult as out-pt. Your Metformin is hold since your glucose is good controlled in hospital with your home insulin schedule, you had elevated creatinine, and report some diarrhea. You may followup with your PCP in one week, may have hat ironer consult as out-pt. Should your symptoms return or worsen, you may present ER or call 911 for help. - TIME SPENT Time Spent in Discharge (Minutes): 30
== END 2020-09-06 10:20 | disposition home or self-care (01) | DRG 433 ==
LOC: ED 13:00 → MS2 15:45
PROVIDERS: ADMIT Nurse Practitioner Gerontology; ATTEND Nurse Practitioner Gerontology
PROC: 0W9G3ZZ Drainage of Peritoneal Cavity, Percutaneous Approach (ICD-10-PCS; principal; 2020-09-05)
DX: K70.40 Alcoholic hepatic failure without coma (principal); E87.1 Hypo-osmolality and hyponatremia; N17.9 Acute kidney failure, unspecified; R53.1 Weakness; E11.65 Type 2 diabetes mellitus with hyperglycemia; Z79.4 Long term (current) use of insulin; Z91.128 Patient's intentional underdosing of medication regimen for other reason; K70.31 Alcoholic cirrhosis of liver with ascites; F10.11 Alcohol abuse, in remission; Z20.822 Contact with and (suspected) exposure to COVID-19; T47.3X6A Underdosing of saline and osmotic laxatives, initial encounter; T38.3X6A Underdosing of insulin and oral hypoglycemic [antidiabetic] drugs, initial encounter
CPT/HCPCS: 0202U; 36415; 49083; 80048; 80053; 81003; 82140; 83036; 83690; 83735; 85025; 85610; 85730; 94640; 96374; 99284; 99285; A9270; J1815; J8499; P9047; 81001; 87086

== ENCOUNTER 2020-09-08 | Outpatient (CLI) | payer MEDICAID ==
--- NOTE | 2020-09-08 10:41 | Ultrasound Report ---
PROCEDURE: Abdominal Paracentesis INDICATIONS: ALCOHOLIC CIRRHOSIS OF LIVER W/ASCITES TECHNIQUE: The indications, alternatives, benefits, risks, and complications of the procedure were explained to the patient. Written informed consent was obtained and placed in the chart. The abdomen and pelvis were examined sonographically, and an appropriate site was chosen for paracentesis. The skin was pre pared and draped in the usual sterile fashion, and 1% lidocaine was infiltrated from the skin down th rough the peritoneal surface. A 19-gauge catheter-covered needle was then introduced into the perito valerie space, the catheter was advanced and the needle was withdrawn, and thereafter peritoneal fluid w as withdrawn. The catheter was then removed and a dressing was applied. The fluid was discarded if the clinician did not order diagnostic testing of the fluid. COMPARISON: None. FINDINGS: Access site: Right lower quadrant Needle: One-Step centesis catheter with introducer needle. Fluid volume and description: 8.7 L of ascites Fluid sent for diagnostic testing: Not requested Medications: 1% lidocaine for local anaesthesia. Complications: None. IMPRESSION: Successful ultrasound-guided paracentesis. Reviewed by: Bairon Real MD on 09/08/2020 10:39 AM PDT Approved by: Bairon Real MD on 09/08/2020 10:39 AM PDT Station ID: [id number]
== END 2020-09-08 23:59 | disposition home or self-care (01) ==
LOC: DI
PROVIDERS: ATTEND Internal Medicine
DX: K70.31 Alcoholic cirrhosis of liver with ascites (principal)
CPT/HCPCS: 49083

== ENCOUNTER 2020-09-08 07:22 | Outpatient (CLI) | payer MEDICAID ==
[2020-09-08 07:55] LABS: BASOPHILS # (AUTO) 0.1 10^3/uL (0.0-0.1); EOSINOPHILS # (AUTO) 0.1 10^3/uL (0.0-0.7); EOSINOPHILS % (AUTO) 1.4 %; HCT - HEMATOCRIT 30.8 % (42.0-52.0); HGB - HEMOGLOBIN 10.7 g/dL (14.0-18.0); LYMPHOCYTES # (AUTO) 1.1 10^3/uL (1.5-3.5); LYMPHOCYTES % (AUTO) 18.4 %; MEAN CORPUSCULAR HEMOGLOBIN 31.8 pg (27.0-31.0); MEAN CORPUSCULAR HGB CONC 34.7 g/dL (32.0-36.0); MEAN CORPUSCULAR VOLUME 91.7 fL (80.0-94.0); MEAN PLATELET VOLUME 9.6 fL (7.4-11.4); MONOCYTES # (AUTO) 0.9 10^3/uL (0.0-1.0); MONOCYTES % (AUTO) 15.5 %; NEUTROPHILS # (AUTO) 3.7 10^3/uL (1.5-6.6); NEUTROPHILS % (AUTO) 63.2 %; PLT - PLATELET COUNT 125 10^3/uL (130-450); RED BLOOD COUNT 3.36 10^6/uL (4.70-6.10); RED CELL DISTRIBUTION WIDTH 13.2 % (12.0-15.0); WHITE BLOOD COUNT 5.8 x10^3/uL (4.8-10.8)
[2020-09-08 08:04] LABS: INR 1.2 (0.8-1.2); PT - PROTHROMBIN TIME 12.8 secs (9.9-12.6)
[2020-09-08 08:07] LABS: CALCIUM 9.1 mg/dL (8.5-10.3); CREATININE 2.1 mg/dL (0.6-1.2); POTASSIUM 4.3 mmol/L (3.5-5.0)
[2020-09-08 08:12] LABS: PARTIAL THROMBOPLASTIN TIME 29.9 secs (24.9-33.3)
== END 2020-09-08 07:23 | disposition home or self-care (01) ==
LOC: LAB 07:22
PROVIDERS: ATTEND Internal Medicine
DX: K70.31 Alcoholic cirrhosis of liver with ascites (principal)
CPT/HCPCS: 36415; 80048; 85025; 85610; 85730

== ENCOUNTER 2020-09-09 18:05 | Outpatient (CLI) | payer MEDICAID | END 2020-09-09 18:06 | disposition critical access hospital (66) | LOC: EMS 18:05 | DX: T83.021A Displacement of indwelling urethral catheter, initial encounter (principal); X58.XXXA Exposure to other specified factors, initial encounter; Y92.009 Unspecified place in unspecified non-institutional (private) residence as the place of occurrence of the external cause | CPT/HCPCS: A0425; A0429 ==

== ENCOUNTER 2020-09-11 17:51 | Outpatient (CLI) | payer MEDICAID | END 2020-09-11 17:52 | disposition critical access hospital (66) | LOC: EMS 17:51 | DX: R52 Pain, unspecified (principal); R47.1 Dysarthria and anarthria; R41.0 Disorientation, unspecified | CPT/HCPCS: A0425; A0429; A0999 ==

== ENCOUNTER 2020-09-15 00:01 | Outpatient (CLI) | payer MEDICAID ==
--- NOTE | 2020-09-15 15:52 | Ultrasound Report ---
PROCEDURE: Abdominal Paracentesis INDICATIONS: ALCOHOLIC CIRRHOSIS OF LIVER W/ASCITES TECHNIQUE: The indications, alternatives, benefits, risks, and complications of the procedure were explained to the patient. Written informed consent was obtained and placed in the chart. The abdomen and pelvis were examined sonographically, and an appropriate site was chosen for paracentesis. The skin was pre pared and draped in the usual sterile fashion, and 1% lidocaine was infiltrated from the skin down th rough the peritoneal surface. A 19-gauge catheter-covered needle was then introduced into the perito valerie space, the catheter was advanced and the needle was withdrawn, and thereafter peritoneal fluid w as withdrawn. The catheter was then removed and a dressing was applied. The fluid was discarded if the clinician did not order diagnostic testing of the fluid. COMPARISON: none FINDINGS: Access site: right lower quadrant Needle: One-Step centesis catheter with introducer needle. Fluid volume and description: 4.9 L bloody Fluid sent for diagnostic testing: no Medications: 1% lidocaine for local anaesthesia. Complications: None. IMPRESSION: Successful ultrasound-guided paracentesis. Reviewed by: Joanne Cabral MD on 09/15/2020 3:51 PM PDT Approved by: Joanne Cabral MD on 09/15/2020 3:51 PM PDT Station ID: [id number]
== END 2020-09-15 23:59 | disposition home or self-care (01) ==
LOC: DI 00:01
PROVIDERS: ATTEND Internal Medicine
DX: K70.31 Alcoholic cirrhosis of liver with ascites (principal)
CPT/HCPCS: 49083

== ENCOUNTER 2020-09-15 01:39 | Outpatient (CLI) | payer MEDICAID | END 2020-09-15 01:40 | disposition critical access hospital (66) | LOC: EMS 01:39 | DX: R29.898 Other symptoms and signs involving the musculoskeletal system (principal) | CPT/HCPCS: A0425; A0429; A0999 ==

== ENCOUNTER 2020-09-15 01:48 | Emergency (ER) | payer MEDICAID ==
--- NOTE | 2020-09-15 01:45 | ED Physician Documentation ---
History of Present Illness - History obtained from History obtained from: EMS - History of Present Illness Timing: Enter time (22:30) - Additonal information Additional information: BIBA for weakness. Patient unable to provide substantive contribution to HPI/ROS due to AMS. Patient's mother called 911; she told medics that patient sat on the toilet at approximately 10:30 PM and was unable to stand back up due to generalized weak ness. Patient has hepatic encephalopathy and has paracentesis performed twice/week. He was admitted to [facility] 09/09 and discharged 09/11, returned same day (09/11) and admitted, d/c 09/13. Review of Systems Unable to obtain: AMS PD PAST MEDICAL HISTORY - Past Medical History Past Medical History: Yes Endocrine/Autoimmune: Type 1 diabetes GI: Cirrhosis - Present Medications Home Medications: Ambulatory Orders Medication Instructions Recorded Confirmed Albuterol Sulfate [Proair Hfa 1 - 2 puffs INH Q4H PRN 11/13/16 09/09/20 Inhaler] Insulin Glargine,Hum.rec.anlog 65 units SUBQ DAILY PM 11/13/16 09/09/20 [Basaglar Kwikpen U-100] Insulin Regular, Human [Humulin R] 5 - 20 units SUBQ TIDWM 11/13/16 09/09/20 buPROPion HCL [Bupropion HCl Sr] 150 mg PO BID 02/15/20 09/09/20 Multivitamin W/Minerals [Theragran 1 tab PO DAILY #30 tablet 03/29/20 09/09/20 M] Lactulose 30 gm PO TIDWM #100 bottle 08/29/20 09/09/20 Tamsulosin [Flomax] 0.4 mg PO DAILY #30 cap 08/29/20 09/09/20 Sodium Polystyrene Sulfonate 15 g PO BID PRN 09/02/20 09/09/20 rifAXIMin [Xifaxan] 550 mg PO BID #60 tablet 09/06/20 09/09/20 - Allergies Allergies/Adverse Reactions: Allergies Allergy/AdvReac Type Severity Reaction Status Date / Time cantaloupe Allergy Anaphylaxis Verified 09/15/20 01:58 melon Allergy Anaphylaxis Verified 09/15/20 01:58 lisinopril AdvReac Respiratory Verified 09/15/20 01:58 - Living Situation Living Situation: reports: With family Living Arrangement: reports: At home PD ED PE NORMAL - Vitals Vital signs reviewed: Yes - General General: No acute distress, Other (lethargic; repeatedly falls asleep during attempts to obtain HPI/ROS. ) - HEENT HEENT: Moist mucous membranes - Neck Neck: Supple, no meningeal sign - Cardiac Cardiac: RRR, No murmur - Respiratory Respiratory: No respiratory distress, Clear bilaterally - Abdomen Abdomen: Soft, Non tender, Other (soft, reducible umbilical hernia) - Neuro Eye Opening: To Voice Motor: Obeys Commands (obeys simple commands) Verbal: Confused (oriented to self. does not know year. knows he is in a hospital, does not know which one) GCS Score: 13 PD ED PE EXPANDED - Abdomen Abdomen: Distended (distended but soft (not tense ascites)). No: Tender to palpation - Male Male : Other (nagy catheter in place) - Extremities Extremities: Pedal edema bilateral Results - Vitals Vitals: Vital Signs - 24 hr 09/15/20 09/15/20 09/15/20 01:51 06:28 07:28 Temperature 36.1 C L Heart Rate 95 89 87 Respiratory 18 18 18 Rate Blood Pressure 100/82 H 111/84 H 112/69 O2 Saturation 100 100 100 09/15/20 09:34 Temperature Heart Rate 85 Respiratory 18 Rate Blood Pressure 105/68 O2 Saturation 100 Oxygen O2 Source Room air - Labs Labs: Laboratory Tests 09/15/20 09/15/20 09/15/20 02:09 02:09 02:09 WBC 6.8 RBC 3.34 L Hgb 10.8 L Hct 30.3 L MCV 90.7 MCH 32.3 H MCHC 35.6 RDW 13.5 Plt Count 131 MPV 9.5 Neut # (Auto) 4.3 Lymph # (Auto) 1.3 L [place] # (Auto) 1.0 Eos # (Auto) 0.1 Baso # (Auto) 0.1 Absolute Nucleated RBC 0.00 Nucleated RBC % 0.0 PT INR APTT Sodium 125 L Potassium 3.9 Chloride 94 L Carbon Dioxide 19 L Anion Gap 12.0 BUN 77 H Creatinine 2.0 H Estimated GFR (MDRD) 35 L Glucose 138 H Calcium 8.7 Total Bilirubin 2.0 H AST 54 H ALT 36 Alkaline Phosphatase 95 Ammonia 139.3 H* Total Protein 6.0 L Albumin 3.6 Globulin 2.4 Albumin/Globulin Ratio 1.5 Lipase 118 H 09/15/20 02:09 WBC RBC Hgb Hct MCV MCH MCHC RDW Plt Count MPV Neut # (Auto) Lymph # (Auto) [place] # (Auto) Eos # (Auto) Baso # (Auto) Absolute Nucleated RBC Nucleated RBC % PT 13.1 H INR 1.2 APTT 30.8 Sodium Potassium Chloride Carbon Dioxide Anion Gap BUN Creatinine Estimated GFR (MDRD) Glucose Calcium Total Bilirubin AST ALT Alkaline Phosphatase Ammonia Total Protein Albumin Globulin Albumin/Globulin Ratio Lipase PD MEDICAL DECISION MAKING - ED course Complexity details: reviewed old records, reviewed results, re-evaluated patient, considered differential, d/w patient ED course: AMS likely due to hepatic encephalopathy. His lab test results are not significantly changed from baseline results, including hyponatremia, elevated bun/creatinine, and elevated ammonia. He is given a dose of lactulose in ED. Care of patient turned over to Dr. Pedroza at end of my shift with plan to hold in ED until he can be sent to DI for his scheduled paracentesis. He became increasingly awake and alert during ED stay Departure - Departure Disposition: 01 Home, Self Care Clinical Impression: End stage liver disease, Ascites due to alcoholic cirrhosis, Hepatic encephalopathy Condition: Stable Instructions: ED Ascites, ED Cirrhosis Liver Follow-Up: Montrell Brady MD [Primary Care Provider] - Comments: Landon, today it looks like the most important thing for you to do recently is to make certain that you take your lactulose regularly and often.
[2020-09-15 02:16] LABS: BASOPHILS # (AUTO) 0.1 10^3/uL (0.0-0.1); BASOPHILS % (AUTO) 0.9 %; EOSINOPHILS # (AUTO) 0.1 10^3/uL (0.0-0.7); EOSINOPHILS % (AUTO) 1.8 %; HCT - HEMATOCRIT 30.3 % (42.0-52.0); HGB - HEMOGLOBIN 10.8 g/dL (14.0-18.0); LYMPHOCYTES # (AUTO) 1.3 10^3/uL (1.5-3.5); MEAN CORPUSCULAR HEMOGLOBIN 32.3 pg (27.0-31.0); MEAN CORPUSCULAR HGB CONC 35.6 g/dL (32.0-36.0); MEAN CORPUSCULAR VOLUME 90.7 fL (80.0-94.0); MEAN PLATELET VOLUME 9.5 fL (7.4-11.4); MONOCYTES % (AUTO) 14.9 %; NEUTROPHILS # (AUTO) 4.3 10^3/uL (1.5-6.6); NEUTROPHILS % (AUTO) 62.8 %; PLT - PLATELET COUNT 131 10^3/uL (130-450); RED BLOOD COUNT 3.34 10^6/uL (4.70-6.10); RED CELL DISTRIBUTION WIDTH 13.5 % (12.0-15.0); WHITE BLOOD COUNT 6.8 x10^3/uL (4.8-10.8)
[2020-09-15 02:24] LABS: INR 1.2 (0.8-1.2); PT - PROTHROMBIN TIME 13.1 secs (9.9-12.6)
[2020-09-15 02:30] LABS: ALBUMIN 3.6 g/dL (3.2-5.5); ALBUMIN/GLOBULIN RATIO 1.5 (1.0-2.2); CALCIUM 8.7 mg/dL (8.5-10.3); POTASSIUM 3.9 mmol/L (3.5-5.0)
[2020-09-15 02:31] LABS: PARTIAL THROMBOPLASTIN TIME 30.8 secs (24.9-33.3)
[2020-09-15] MEDS ORDERED: LACTULOSE 10 GM /15 ML UDC PO STA ×2 (06:28→06:29)
[2020-09-15] MEDS ORDERED: rifAXIMin 550 MG TABLET PO STA (07:38)
--- NOTE | 2020-09-15 07:43 | ED Physician Documentation ---
History of Present Illness - Stated complaint Stated Complaint: LOW EXTREMITY WEAKNESS - Chief complaint Chief Complaint: Neuro - History obtained from History obtained from: Patient - History of Present Illness Timing: Today - Additonal information Additional information: Care 50-year-old male with alcoholic cirrhosis, hepatocellular carcinoma, and complications with ascites and encephalopathy required a lift assist at home this morning early and was brought to the hospital by ambulance. He showed up appearing confused and encephalopathic. The patient has had multiple admissions to the hospital for hepatic encephalopathy and hyponatremia especially within the past week. He has an appointment this coming week for evaluation at [facility] for TACE (trans arterial chemo embolization of the hepatocellular carcinoma) . He has an appointment today at 8 AM in diagnostic imaging for a scheduled paracentesis. PD PAST MEDICAL HISTORY - Past Medical History Past Medical History: Yes Cardiovascular: Hypertension, High cholesterol Respiratory: Asthma Neuro: Peripheral neuropathy Endocrine/Autoimmune: Type 1 diabetes GI: Cirrhosis : Retention, Indwelling catheter HEENT: Chronic vision loss Psych: Depression, Anxiety Musculoskeletal: Osteoarthritis Derm: Psoriasis, Other - Past Surgical History Past Surgical History: Yes Ortho: Arthroscopic surgery - Present Medications Home Medications: Ambulatory Orders Medication Instructions Recorded Confirmed Albuterol Sulfate [Proair Hfa 1 - 2 puffs INH Q4H PRN 11/13/16 09/09/20 Inhaler] Insulin Glargine,Hum.rec.anlog 65 units SUBQ DAILY PM 11/13/16 09/09/20 [Basaglar Kwikpen U-100] Insulin Regular, Human [Humulin R] 5 - 20 units SUBQ TIDWM 11/13/16 09/09/20 buPROPion HCL [Bupropion HCl Sr] 150 mg PO BID 02/15/20 09/09/20 Multivitamin W/Minerals [Theragran 1 tab PO DAILY #30 tablet 03/29/20 09/09/20 M] Lactulose 30 gm PO TIDWM #100 bottle 08/29/20 09/09/20 Tamsulosin [Flomax] 0.4 mg PO DAILY #30 cap 08/29/20 09/09/20 Sodium Polystyrene Sulfonate 15 g PO BID PRN 09/02/20 09/09/20 rifAXIMin [Xifaxan] 550 mg PO BID #60 tablet 09/06/20 09/09/20 - Allergies Allergies/Adverse Reactions: Allergies Allergy/AdvReac Type Severity Reaction Status Date / Time cantaloupe Allergy Anaphylaxis Verified 09/15/20 01:58 melon Allergy Anaphylaxis Verified 09/15/20 01:58 lisinopril AdvReac Respiratory Verified 09/15/20 01:58 - Social History Does the pt smoke?: No Smoking Status: Never smoker Does the pt drink ETOH?: No Does the pt have substance abuse?: No - Immunizations Immunizations are current?: Yes - POLST Patient has POLST: No PD ED PE NORMAL - Vitals Vital signs reviewed: Yes (hypertensive diastolic mild ) - General General: Alert and oriented X 3, No acute distress, Well developed/nourished - HEENT HEENT: Atraumatic, PERRL - Respiratory Respiratory: No respiratory distress - Derm Derm: Normal color, Warm and dry - Extremities Extremities: Other (edema to LE bilat worse on the right ) Results - Vitals Vitals: Vital Signs - 24 hr 09/15/20 09/15/20 09/15/20 01:51 06:28 07:28 Temperature 36.1 C L Heart Rate 95 89 87 Respiratory 18 18 18 Rate Blood Pressure 100/82 H 111/84 H 112/69 O2 Saturation 100 100 100 Oxygen O2 Source Room air - Labs Labs: Laboratory Tests 09/15/20 09/15/20 09/15/20 02:09 02:09 02:09 WBC 6.8 RBC 3.34 L Hgb 10.8 L Hct 30.3 L MCV 90.7 MCH 32.3 H MCHC 35.6 RDW 13.5 Plt Count 131 MPV 9.5 Neut # (Auto) 4.3 Lymph # (Auto) 1.3 L [place] # (Auto) 1.0 Eos # (Auto) 0.1 Baso # (Auto) 0.1 Absolute Nucleated RBC 0.00 Nucleated RBC % 0.0 PT INR APTT Sodium 125 L Potassium 3.9 Chloride 94 L Carbon Dioxide 19 L Anion Gap 12.0 BUN 77 H Creatinine 2.0 H Estimated GFR (MDRD) 35 L Glucose 138 H Calcium 8.7 Total Bilirubin 2.0 H AST 54 H ALT 36 Alkaline Phosphatase 95 Ammonia 139.3 H* Total Protein 6.0 L Albumin 3.6 Globulin 2.4 Albumin/Globulin Ratio 1.5 Lipase 118 H 09/15/20 02:09 WBC RBC Hgb Hct MCV MCH MCHC RDW Plt Count MPV Neut # (Auto) Lymph # (Auto) [place] # (Auto) Eos # (Auto) Baso # (Auto) Absolute Nucleated RBC Nucleated RBC % PT 13.1 H INR 1.2 APTT 30.8 Sodium Potassium Chloride Carbon Dioxide Anion Gap BUN Creatinine Estimated GFR (MDRD) Glucose Calcium Total Bilirubin AST ALT Alkaline Phosphatase Ammonia Total Protein Albumin Globulin Albumin/Globulin Ratio Lipase Departure - Departure Disposition: 01 Home, Self Care Clinical Impression: End stage liver disease, Ascites due to alcoholic cirrhosis, Hepatic encephalopathy Condition: Stable Instructions: ED Cirrhosis Liver, ED Ascites Follow-Up: Montrell Brady MD [Primary Care Provider] - Comments: Landon, today it looks like the most important thing for you to do recently is to make certain that you take your lactulose regularly and often.
[2020-09-15 09:34] VITALS: BP 105/68
== END 2020-09-15 09:59 | disposition home or self-care (01) ==
LOC: ED 01:48
DX: K70.40 Alcoholic hepatic failure without coma (principal); K70.31 Alcoholic cirrhosis of liver with ascites; E10.42 Type 1 diabetes mellitus with diabetic polyneuropathy; Z79.4 Long term (current) use of insulin; I10 Essential (primary) hypertension; C22.0 Liver cell carcinoma; Z96.0 Presence of urogenital implants
CPT/HCPCS: 36415; 80053; 82140; 83690; 85025; 85610; 85730; 99284

== ENCOUNTER 2020-09-15 11:15 | Emergency (ER) | payer MEDICAID ==
[2020-09-15] MEDS ORDERED: LACTULOSE 10 GM /15 ML UDC PO STA ×2 (11:21→14:18)
[2020-09-15] MEDS ORDERED: ALBUMIN 25% 12.5 GM/50 ML VIAL IV STA ×2 (11:37→11:38)
--- NOTE | 2020-09-15 11:40 | ED Physician Documentation ---
History of Present Illness - Stated complaint Stated Complaint: WEAKNESS - Chief complaint Chief Complaint: General - History obtained from History obtained from: Patient - History of Present Illness Timing: Today - Additonal information Additional information: 50-year-old male with a history of cirrhosis and ascites with hepatocellular carcinoma was sent over to diagnostic imaging for a scheduled paracentesis. He was returned to the emergency department by diagnostic imaging when he was not accepted over at the [facility] as too confused. The patient has been given his dose of lactulose this morning as well as the Xifaxan and he returns without having given the albumin infusion. Review of Systems Constitutional: denies: Fever Eyes: denies: Decreased vision Ears: denies: Ear pain Nose: denies: Congestion Throat: denies: Sore throat Cardiac: denies: Chest pain / pressure, Palpitations Respiratory: denies: Dyspnea, Cough GI: reports: Nausea, Constipation : denies: Dysuria, Frequency Skin: denies: Rash Musculoskeletal: denies: Neck pain, Back pain, Extremity pain Neurologic: reports: Generalized weakness, Confused, Altered mental status. denies: Focal weakness, Numbness, Difficulty speaking PD PAST MEDICAL HISTORY - Past Medical History Cardiovascular: Hypertension, High cholesterol Respiratory: Asthma Neuro: Peripheral neuropathy Endocrine/Autoimmune: Type 1 diabetes GI: Cirrhosis : Retention, Indwelling catheter HEENT: Chronic vision loss Psych: Depression, Anxiety Musculoskeletal: Osteoarthritis Derm: Psoriasis, Other - Past Surgical History Past Surgical History: Yes Ortho: Arthroscopic surgery - Present Medications Home Medications: Ambulatory Orders Medication Instructions Recorded Confirmed Albuterol Sulfate [Proair Hfa 1 - 2 puffs INH Q4H PRN 11/13/16 09/15/20 Inhaler] Insulin Glargine,Hum.rec.anlog 65 units SUBQ DAILY PM 11/13/16 09/15/20 [Basaglar Kwikpen U-100] Insulin Regular, Human [Humulin R] 5 - 20 units SUBQ TIDWM 11/13/16 09/15/20 buPROPion HCL [Bupropion HCl Sr] 150 mg PO BID 02/15/20 09/15/20 Multivitamin W/Minerals [Theragran 1 tab PO DAILY #30 tablet 03/29/20 09/15/20 M] Lactulose 30 gm PO TIDWM #100 bottle 06/15/21 07/02/21 Tamsulosin [Flomax] 0.4 mg PO DAILY #30 cap 08/29/20 09/15/20 Sodium Polystyrene Sulfonate 15 g PO BID PRN 09/02/20 09/15/20 rifAXIMin [Xifaxan] 550 mg PO BID #60 tablet 09/06/20 09/15/20 Furosemide [Lasix] 40 mg PO DAILY 09/15/20 09/15/20 Venlafaxine ER [Effexor ER] 75 mg PO DAILY 09/15/20 09/15/20 - Allergies Allergies/Adverse Reactions: Allergies Allergy/AdvReac Type Severity Reaction Status Date / Time cantaloupe Allergy Anaphylaxis Verified 09/15/20 11:23 melon Allergy Anaphylaxis Verified 09/15/20 11:23 lisinopril AdvReac Respiratory Verified 09/15/20 11:23 - Social History Does the pt smoke?: No Smoking Status: Never smoker Does the pt drink ETOH?: No Does the pt have substance abuse?: No - Immunizations Immunizations are current?: Yes - POLST Patient has POLST: No PD ED PE NORMAL - Vitals Vital signs reviewed: Yes (normal ) - General General: No acute distress, Well developed/nourished, Other (The patient arrives not able to give adequate history and falling asleep easily. ) - HEENT HEENT: Atraumatic, PERRL, EOMI - Neck Neck: Supple, no meningeal sign - Cardiac Cardiac: RRR, No murmur - Respiratory Respiratory: No respiratory distress, Clear bilaterally - Abdomen Abdomen: Normal bowel sounds, Soft, No organomegaly, Other (mild tenderness mild distention not as distended as prior. 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, No motor deficit, No sensory deficit, Normal speech Eye Opening: Spontaneous Motor: Obeys Commands Verbal: Oriented GCS Score: 15 - Psych Psych: Normal mood, Normal affect Results - Vitals Vitals: Vital Signs - 24 hr 09/15/20 09/15/20 09/15/20 11:19 12:30 14:00 Temperature 36.5 C 36.4 C L Heart Rate 60 85 87 Respiratory 16 15 18 Rate Blood Pressure 125/76 102/60 93/63 O2 Saturation 100 100 100 /05/07 16:00 Temperature 36.7 C Heart Rate 95 Respiratory 16 Rate Blood Pressure 97/57 L O2 Saturation 100 Oxygen O2 Source Room air PD MEDICAL DECISION MAKING - ED course Complexity details: considered differential, d/w patient ED course: 50-year-old male with alcoholic cirrhosis ascites and hepatocellular carcinoma has had his ascites drained he presents to the emergency department now for confusion and he is administered further lactulose in the emergency department and he is administered albumin 50 g. Departure - Departure Disposition: Home, Self Care Clinical Impression: Hepatic encephalopathy, Medical non-compliance, Physical deconditioning Condition: Stable Instructions: ED Cirrhosis Liver Follow-Up: Montrell Brady MD [Primary Care Provider] - Comments: Take your lactulose 3 times per day.Follow-up on Friday for paracentesis and follow-up with your appointment with the transplant service.
[2020-09-15] MEDS ORDERED: SODIUM CHLORIDE 0.9% 1,000 ML IV STA (17:34)
[2020-09-15 18:53] VITALS: BP 110/62
== END 2020-09-15 18:54 | disposition home or self-care (01) ==
LOC: ED 11:15
DX: K72.90 Hepatic failure, unspecified without coma (principal); K70.31 Alcoholic cirrhosis of liver with ascites; Z72.3 Lack of physical exercise; E10.42 Type 1 diabetes mellitus with diabetic polyneuropathy; C22.0 Liver cell carcinoma; Z79.4 Long term (current) use of insulin; Z96.0 Presence of urogenital implants; Z91.19 Patient's noncompliance with other medical treatment and regimen
CPT/HCPCS: 36415; 49083; 80053; 82140; 83690; 85025; 85610; 85730; 96365; 99284; A9270; J8499; P9047

== ENCOUNTER 2020-09-16 06:53 | Outpatient (CLI) | payer MEDICAID | END 2020-09-16 06:54 | disposition critical access hospital (66) | LOC: EMS 06:53 | DX: R45.89 Other symptoms and signs involving emotional state (principal); R46.89 Other symptoms and signs involving appearance and behavior | CPT/HCPCS: A0425; A0429; A0999 ==

== ENCOUNTER 2020-09-16 06:57 | Inpatient (IN) | payer MEDICAID ==
[2020-09-16] MEDS ORDERED: LACTULOSE 10 GM /15 ML UDC PO STA (07:07)
[2020-09-16 07:36] LABS: BASOPHILS # (AUTO) 0.1 10^3/uL (0.0-0.1); BASOPHILS % (AUTO) 1.2 %; EOSINOPHILS # (AUTO) 0.1 10^3/uL (0.0-0.7); EOSINOPHILS % (AUTO) 2.3 %; HCT - HEMATOCRIT 27.4 % (42.0-52.0); HGB - HEMOGLOBIN 9.9 g/dL (14.0-18.0); LYMPHOCYTES # (AUTO) 1.1 10^3/uL (1.5-3.5); LYMPHOCYTES % (AUTO) 20.8 %; MEAN CORPUSCULAR HEMOGLOBIN 32.6 pg (27.0-31.0); MEAN CORPUSCULAR HGB CONC 36.1 g/dL (32.0-36.0); MEAN CORPUSCULAR VOLUME 90.1 fL (80.0-94.0); MEAN PLATELET VOLUME 9.2 fL (7.4-11.4); MONOCYTES % (AUTO) 19.9 %; NEUTROPHILS # (AUTO) 2.9 10^3/uL (1.5-6.6); NEUTROPHILS % (AUTO) 55.4 %; PLT - PLATELET COUNT 119 10^3/uL (130-450); RED BLOOD COUNT 3.04 10^6/uL (4.70-6.10); RED CELL DISTRIBUTION WIDTH 13.6 % (12.0-15.0); WHITE BLOOD COUNT 5.2 x10^3/uL (4.8-10.8)
--- NOTE | 2020-09-16 07:38 | ED Physician Documentation ---
PD HPI ALTERED MENTAL STATUS - Stated complaint Stated Complaint: AMS - Chief complaint Chief Complaint: Neuro - History obtained from History obtained from: Patient - History of Present Illness Timing - onset: Today Timing - duration: Hours Timing - details: Gradual onset, Still present Quality / character: Less responsive, Confused, Agitated, Combative Associated symptoms: Cough, General weakness. No: Fever, Dyspnea Contributing factors: Recent illness, Other (end stage liver disease) Basline status: Alert and oriented X 3, Walker Similar symptoms before: Diagnosis (Hepatic encephalopathy) Recently seen: Emergency Dept - Additional information Additional information: 50-year-old male with a history of end-stage liver disease with alcoholic cirrhosis and hepatocellular carcinoma is getting routine paracentesis for ascites and he is noncompliant with his lactulose and has been encephalopathic requiring admission to the hospital. He has refused to go to a group home and needs skilled nursing care. He was seen in the emergency department yesterday twice he was seen early in the morning where he went to get him tuned up enough to get his paracentesis done and he was then encephalopathic enough that he came back to the emergency department he was administered an additional 3 doses of lactulose throughout the day and had some improvement in his mentation. He accepted the fact that he requires skilled nursing care for survival and has consented to group home placement.. We were unable to place him in a group home yesterday and he went back home to the living situation with his elderly mother and he apparently was arguing with her and refused to take his medications and then collapsed to the floor on medics a second visit to the patient's home. Medics went to visit the home to give a lift assist to the patient's mother. Following that the patient collapsed to the floor and was brought to the hospital. This morning he is unable to give any history. Review of Systems Unable to obtain: Unresponsive PD PAST MEDICAL HISTORY - Past Medical History Cardiovascular: Hypertension, High cholesterol Respiratory: Asthma Neuro: Peripheral neuropathy Endocrine/Autoimmune: Type 1 diabetes GI: Cirrhosis : Retention, Indwelling catheter HEENT: Chronic vision loss Psych: Depression, Anxiety Musculoskeletal: Osteoarthritis Derm: Psoriasis, Other - Past Surgical History Past Surgical History: Yes Ortho: Arthroscopic surgery - Present Medications Home Medications: Ambulatory Orders Medication Instructions Recorded Confirmed Albuterol Sulfate [Proair Hfa 1 - 2 puffs INH Q4H PRN 11/13/16 09/16/20 Inhaler] Insulin Glargine,Hum.rec.anlog 65 units SUBQ DAILY PM 11/13/16 09/16/20 [Basaglar Kwikpen U-100] Insulin Regular, Human [Humulin R] 5 - 20 units SUBQ TIDWM 11/13/16 09/16/20 buPROPion HCL [Bupropion HCl Sr] 150 mg PO BID 02/15/20 09/16/20 Multivitamin W/Minerals [Theragran 1 tab PO DAILY #30 tablet 03/29/20 09/16/20 M] Lactulose 30 gm PO TIDWM #100 bottle 08/29/20 09/16/20 Tamsulosin [Flomax] 0.4 mg PO DAILY #30 cap 08/29/20 09/16/20 Sodium Polystyrene Sulfonate 15 g PO BID PRN 09/02/20 09/16/20 rifAXIMin [Xifaxan] 550 mg PO BID #60 tablet 09/06/20 09/16/20 Furosemide [Lasix] 40 mg PO DAILY 09/15/20 09/16/20 Venlafaxine ER [Effexor ER] 75 mg PO DAILY 09/15/20 09/16/20 - Allergies Allergies/Adverse Reactions: Allergies Allergy/AdvReac Type Severity Reaction Status Date / Time cantaloupe Allergy Anaphylaxis Verified 09/16/20 07:12 melon Allergy Anaphylaxis Verified 09/16/20 07:12 lisinopril AdvReac Respiratory Verified 09/16/20 07:12 - Social History Does the pt smoke?: No Smoking Status: Never smoker Does the pt drink ETOH?: No Does the pt have substance abuse?: No - Immunizations Immunizations are current?: Yes - POLST Patient has POLST: No PD ED PE NORMAL - Vitals Vital signs reviewed: Yes (hypotensive ) - General General: No acute distress, Well developed/nourished - HEENT HEENT: Atraumatic, PERRL, EOMI, Other (lays with eyes closed opens periodically but does not respond) - Neck Neck: Supple, no meningeal sign, No bony TTP - Cardiac Cardiac: RRR, No murmur - Respiratory Respiratory: No respiratory distress, Other (diminished breath sounds. ) - Abdomen Abdomen: Soft, Non tender, Other (no distention today) - Back Back: No CVA TTP, No spinal TTP - Derm Derm: Normal color, Warm and dry, No rash - Extremities Extremities: No deformity, Other (post inflamatory hyperpigmentation) - Neuro Neuro: Other (unable to cooperate with exam) Eye Opening: Spontaneous Motor: Localizes to Pain Verbal: Incomprehensible GCS Score: 11 Results - Vitals Vitals: Vital Signs - 24 hr 09/16/20 09/16/20 07:07 07:37 Temperature 36.4 C L Heart Rate 93 76 Respiratory 16 15 Rate Blood Pressure 96/51 L 87/58 L O2 Saturation 100 100 Oxygen O2 Source Room air - Labs Labs: Laboratory Tests 09/16/20 09/16/20 09/16/20 07:26 07:26 07:26 WBC 5.2 RBC 3.04 L Hgb 9.9 L Hct 27.4 L MCV 90.1 MCH 32.6 H MCHC 36.1 H RDW 13.6 Plt Count 119 L MPV 9.2 Neut # (Auto) 2.9 Lymph # (Auto) 1.1 L [place] # (Auto) 1.0 Eos # (Auto) 0.1 Baso # (Auto) 0.1 Absolute Nucleated RBC 0.00 Nucleated RBC % 0.0 PT 13.4 H INR 1.2 Sodium 127 L Potassium 4.3 Chloride 97 L Carbon Dioxide 19 L Anion Gap 11.0 BUN 75 H Creatinine 1.9 H Estimated GFR (MDRD) 37 L Glucose 213 H Calcium 8.5 Total Bilirubin 2.0 H AST 54 H ALT 35 Alkaline Phosphatase 91 Ammonia Total Protein 5.7 L Albumin 3.5 Globulin 2.2 Albumin/Globulin Ratio 1.6 Lipase 117 H Urine Color Urine Clarity Urine pH Ur Specific [place] Urine Protein Urine Glucose (UA) Urine Ketones Urine Occult Blood Urine Nitrite Urine Bilirubin Urine Urobilinogen Ur Leukocyte Esterase Ur Microscopic Review Urine Culture Comments Nasal Adenovirus (PCR) Nasal B. parapertussis DNA (PCR) Nasal Coronavir 229E PCR Nasal Coronavir HKU1 PCR Nasal Coronavir NL63 PCR Nasal Coronavir OC43 PCR Nasal Enterovir/Rhinovir PCR Nasal Influenza B PCR Nasal Influenza A PCR Nasal Parainfluen 1 PCR Nasal Parainfluen 2 PCR Nasal Parainfluen 3 PCR Nasal Parainfluen 4 PCR Nasal RSV (PCR) Nasal B.pertussis DNA PCR Nasal C.pneumoniae (PCR) Natanael Human Metapneumo PCR Nasal M.pneumoniae (PCR) Nasal SARS-CoV-2 (PCR) 09/16/20 09/16/20 09/16/20 07:26 07:35 07:50 WBC RBC Hgb Hct MCV MCH MCHC RDW Plt Count MPV Neut # (Auto) Lymph # (Auto) [place] # (Auto) Eos # (Auto) Baso # (Auto) Absolute Nucleated RBC Nucleated RBC % PT INR Sodium Potassium Chloride Carbon Dioxide Anion Gap BUN Creatinine Estimated GFR (MDRD) Glucose Calcium Total Bilirubin AST ALT Alkaline Phosphatase Ammonia 321.5 H* Total Protein Albumin Globulin Albumin/Globulin Ratio Lipase Urine Color YELLOW Urine Clarity CLEAR Urine pH 5.5 Ur Specific [place] 1.020 Urine Protein NEGATIVE Urine Glucose (UA) NEGATIVE Urine Ketones TRACE Urine Occult Blood TRACE-LYSE Urine Nitrite NEGATIVE Urine Bilirubin NEGATIVE Urine Urobilinogen 1 (NORMAL) Ur Leukocyte Esterase NEGATIVE Ur Microscopic Review NOT INDICATED Urine Culture Comments NOT INDICATED Nasal Adenovirus (PCR) NOT DETECTED Nasal B. parapertussis DNA (PCR) NOT DETECTED Nasal Coronavir 229E PCR NOT DETECTED Nasal Coronavir HKU1 PCR NOT DETECTED Nasal Coronavir NL63 PCR NOT DETECTED Nasal Coronavir OC43 PCR NOT DETECTED Nasal Enterovir/Rhinovir PCR NOT DETECTED Nasal Influenza B PCR NOT DETECTED Nasal Influenza A PCR NOT DETECTED Nasal Parainfluen 1 PCR NOT DETECTED Nasal Parainfluen 2 PCR NOT DETECTED Nasal Parainfluen 3 PCR NOT DETECTED Nasal Parainfluen 4 PCR NOT DETECTED Nasal RSV (PCR) NOT DETECTED Nasal B.pertussis DNA PCR NOT DETECTED Nasal C.pneumoniae (PCR) NOT DETECTED Natanael Human Metapneumo PCR NOT DETECTED Nasal M.pneumoniae (PCR) NOT DETECTED Nasal SARS-CoV-2 (PCR) NOT DETECTED - Rads (name of study) CT head Radiology: Prelim report reviewed (Impression: No evidence of acute stroke, hemorrhage, or mass.), EMP read indepedently, See rad report chest Radiology: Prelim report reviewed (Impression: No evidence of acute pulmonary process.), EMP read indepedently, See rad report chest ng Radiology: Prelim report reviewed (Impression: NG tube tip projects to stomach.), EMP read indepedently, See rad report PD MEDICAL DECISION MAKING - ED course Complexity details: reviewed old records, reviewed results, re-evaluated patient, considered differential ED course: 50-year-old male with end-stage liver disease with alcoholic cirrhosis and hepatocellular carcinoma has been noncompliant with his medical regimen and has been a placement issue. We were unable to place the patient yesterday and he was discharged to home ambulating and talking after receiving 3 doses of lactulose in the emergency department. This morning he is obtunded comatose and has an ammonia of 329. A rectal tube is ordered for administration of lactulose and this is changed to NG as we do not have a rectal tube. Clearly failing outpatient management of terminal liver disease. Departure - Departure Disposition: 66 [facility] DC/Xfer Clinical Impression: Hepatic encephalopathy
[2020-09-16 07:42] LABS: BILIRUBIN,URINE NEGATIVE (NEGATIVE); GLUCOSE, URINE (UA) NEGATIVE (NEGATIVE); KETONES,URINE (UA) TRACE mg/dL (NEGATIVE); LEUKOCYTE ESTERASE, URINE NEGATIVE (NEGATIVE); NITRITE,URINE NEGATIVE (NEGATIVE); OCCULT BLOOD,URINE TRACE-LYSE (NEGATIVE); PH,URINE 5.5 PH (5.0-7.5); PROTEIN,URINE NEGATIVE (NEGATIVE); UROBILINOGEN,URINE 1 (NORMAL) E.U./dL (NORMAL)
[2020-09-16 07:46] LABS: CLARITY,URINE CLEAR (CLEAR)
[2020-09-16 08:00] LABS: ALBUMIN 3.5 g/dL (3.2-5.5); ALBUMIN/GLOBULIN RATIO 1.6 (1.0-2.2); CALCIUM 8.5 mg/dL (8.5-10.3); CREATININE 1.9 mg/dL (0.6-1.2); POTASSIUM 4.3 mmol/L (3.5-5.0); TOTAL PROTEIN 5.7 g/dL (6.7-8.2)
[2020-09-16 08:06] LABS: INR 1.2 (0.8-1.2); PT - PROTHROMBIN TIME 13.4 secs (9.9-12.6)
[2020-09-16] MEDS ORDERED: LACTULOSE 10 GM /15 ML UDC PR STA (08:06)
--- NOTE | 2020-09-16 08:37 | XRAY Report ---
PROCEDURE: Chest 1 View X-Ray INDICATIONS: cough TECHNIQUE: One view of the chest was acquired. COMPARISON: 03/18/2020 FINDINGS: Surgical changes and devices: None. Lungs and pleura: No pleural effusions or pneumothorax. Lungs are clear. Mediastinum: Mediastinal contours appear normal. Heart size is normal. Bones and chest wall: No suspicious bony lesions. Overlying soft tissues appear unremarkable. IMPRESSION: No evidence acute pulmonary process. Reviewed by: Maikol Cowart MD on 09/16/2020 7:35 AM AILYN Approved by: Maikol Cowart MD on 09/16/2020 7:35 AM AILYN Station ID: [id number]
--- NOTE | 2020-09-16 08:42 | CT Report ---
PROCEDURE: HEAD WO INDICATIONS: altered mental status TECHNIQUE: Noncontrast 4.5 mm thick angled axial sections acquired from the foramen magnum to the vertex. For r adiation dose reduction, the following was used: automated exposure control, adjustment of mA and/or kV according to patient size. COMPARISON: None. FINDINGS: Image quality: Excellent. CSF spaces: Basal cisterns are patent. No extra-axial fluid collections. Ventricles are normal in size and shape. Incidental note is made of the presence of prominent calcifications along the falx. Findings include a possible densely calcified incidental meningioma measuring 0.7 x 1.2 cm. Brain: No midline shift. No intracranial masses or hemorrhage. Hernandez-white matter interface is norm al. Skull and face: Calvarium and visualized facial bones are intact, without suspicious lesions. Sinuses: Visualized sinuses and mastoids are clear. IMPRESSION: No evidence of acute stroke, hemorrhage, or mass. Reviewed by: Maikol Cowart MD on 09/16/2020 7:40 AM AILYN Approved by: Maikol Cowart MD on 09/16/2020 7:40 AM AILYN Station ID: [id number]
[2020-09-16] MEDS ORDERED: FOLIC ACID INJ 1 MG, THIAMINE INJ 100 MG, MAGNESIUM SULFATE 2 GM, MULTIVITAMIN 10 ML in... IV STA ×5 (08:44)
[2020-09-16 08:46] LABS: B. PARAPERTUSSIS- RESP PCR PAN NOT DETECTED; B. PERTUSSIS- RESP PCR PANEL NOT DETECTED; C. PNEUMONIAE- RESP PCR PANEL NOT DETECTED; CORONAVIRUS 229E-RESP PCR NOT DETECTED; CORONAVIRUS HKU1-RESP PCR NOT DETECTED; CORONAVIRUS NL63-RESP PCR NOT DETECTED; CORONAVIRUS OC43-RESP PCR NOT DETECTED; HUMAN METAPNEUMOVIRUS NOT DETECTED; INFLUENZA A- RESP PCR PANEL NOT DETECTED; INFLUENZA B - RESP PCR PANEL NOT DETECTED; M. PNEUMONIAE- RESP PCR PANEL NOT DETECTED; PARAINFLUENZA VIRUS 1 NOT DETECTED; PARAINFLUENZA VIRUS 2 NOT DETECTED; PARAINFLUENZA VIRUS 3 NOT DETECTED; PARAINFLUENZA VIRUS 4 NOT DETECTED; RHINOVIRUS/ENTEROVIRUS NOT DETECTED; RSV- RESP PCR PANEL NOT DETECTED; SARS-CoV-2 -RESP PCR PANEL NOT DETECTED
--- NOTE | 2020-09-16 09:08 | XRAY Report ---
PROCEDURE: Chest for Line Placement INDICATIONS: NG PLACEMENT TECHNIQUE: One view of the chest was acquired. COMPARISON: 09/16/2020 at 0746 hours FINDINGS: Surgical changes and devices: An NG tube has been placed, projecting to the stomach. Lungs and pleura: No pleural effusions or pneumothorax. Lungs are clear. Mediastinum: Mediastinal contours appear normal. Heart size is normal. Bones and chest wall: No suspicious bony lesions. Overlying soft tissues appear unremarkable. IMPRESSION: NG tube tip projects to stomach. Reviewed by: Maikol Cowart MD on 09/16/2020 8:06 AM AILYN Approved by: Maikol Cowart MD on 09/16/2020 8:06 AM AILYN Station ID: [id number]
[2020-09-16] MEDS ORDERED: SODIUM CHLORIDE FLUSH 0.9% 10 ML SYRINGE IVP PRN (10:05)
--- NOTE | 2020-09-16 10:20 | HISTORY & PHYSICAL EXAMINATION ---
Chief Complaint - Chief Complaint Chief Complaint: encephalopathy History of Present Illness - Admitted From Admitted From:: [facility] ED - History Obtained From Records Reviewed: yes History obtained from: ED physician Exam Limitations: encephalopathy - History of Present Illness HPI Comment/Other: Patient is a 50-year-old male with history of end-stage liver disease with alcoholic cirrhosis and hepatocellular carcinoma who presented to the ED via EMS with encephalopathy. He has recurrent ascites and undergoes routine paracentesis twice a week. He is noncompliant with his lactulose and frequently presents to the emergency department with encephalopathy. He has been admitted about 4 times in the past 3 weeks. He has declined going to a fci and needs long-term care. He was discharged from the hospital 3 days ago. During the previous 2 admissions he returned to the emergency department 2 hours after being discharged from the hospital. He was in the emergency department yesterday with elevated ammonia level and was treated and discharged. He returned this morning. At bedside he is unresponsive. Level was 321.5. It was reported that he had an argument with his mother after returning home yesterday and refused to take his medications. He collapsed to the floor. When medics went to the house to give a lift assist to his mother the brought him to the ED At bedside he is completely unresponsive to tactile or verbal stimuli does unable to provide a reliable history. He had an NG tube placed and 30 g of lactulose administered. However in his encephalopathy hepatic state he pulled out the tube. He is being admitted for further treatment. History - Past Medical History Cardiovascular: reports: Hypertension, High cholesterol Respiratory: reports: Asthma Neuro: reports: Peripheral neuropathy Endocrine/Autoimmune: reports: Type 1 diabetes GI: reports: Cirrhosis : reports: Retention, Indwelling catheter HEENT: reports: Chronic vision loss Psych: reports: Depression, Anxiety Musculoskeletal: reports: Osteoarthritis Derm: reports: Psoriasis, Other MRSA Hx?: No - Past Surgical History Ortho: reports: Arthroscopic surgery - Family & Social History Family History: Mother: Alive and Well Family History Comment/Other: Based off of prior records, he reports his mother has obesity and hypertension. Denies any other family history. Unable to confirm this today given his encephalopathy. Living Situation: With family Social History Notes: Review of prior records reveal that he lives at home with his mother. He smoked about a pack a day for 10 years but quit quite a few years ago. He was a previous alcoholic but quit drinking about 1 year ago. He previously drank for about 15 years. Denies illicit drug use. He currently does not work. - Substance History Use: Uses substance without health or social issues: Tobacco (hx of 25 year smoking), Alcohol (beer; sober since prioir admit) - POLST Patient has POLST: No POLST Status: DNR Meds/Allgy - Home Medications Home Medications: Ambulatory Orders Medication Instructions Recorded Confirmed Albuterol Sulfate [Proair Hfa 1 - 2 puffs INH Q4H PRN 11/13/16 09/16/20 Inhaler] Insulin Glargine,Hum.rec.anlog 65 units SUBQ DAILY PM 11/13/16 09/16/20 [Basaglar Kwikpen U-100] Insulin Regular, Human [Humulin R] 5 - 20 units SUBQ TIDWM 11/13/16 09/16/20 buPROPion HCL [Bupropion HCl Sr] 150 mg PO BID 02/15/20 09/16/20 Multivitamin W/Minerals [Theragran 1 tab PO DAILY #30 tablet 03/29/20 09/16/20 M] Lactulose 30 gm PO TIDWM #100 bottle 08/29/20 09/16/20 Tamsulosin [Flomax] 0.4 mg PO DAILY #30 cap 08/29/20 09/16/20 Sodium Polystyrene Sulfonate 15 g PO BID PRN 09/02/20 09/16/20 rifAXIMin [Xifaxan] 550 mg PO BID #60 tablet 09/06/20 09/16/20 Furosemide [Lasix] 40 mg PO DAILY 09/15/20 09/16/20 Venlafaxine ER [Effexor ER] 75 mg PO DAILY 09/15/20 09/16/20 - Allergies Allergies/Adverse Reactions: Allergies Allergy/AdvReac Type Severity Reaction Status Date / Time cantaloupe Allergy Anaphylaxis Verified 09/16/20 07:12 melon Allergy Anaphylaxis Verified 09/16/20 07:12 lisinopril AdvReac Respiratory Verified 09/16/20 07:12 Review of Systems - Other Findings Other Findings: A 12 point view of system is limited because the patient is encephalopathic/obtunded and unable to provide. Exam - Vital Signs Vital Signs: Vital Signs x48h Temp Pulse Resp BP Pulse Ox 09/16/20 09:12 85 13 103/64 100 09/16/20 07:37 76 15 87/58 L 100 09/16/20 07:07 36.4 C L 93 16 96/51 L 100 - Physical Exam General Appearance: positive: No acute distress, Other (obtunded) Eyes Bilateral: positive: PERRL, EOMI ENT: positive: No signs of dehydration Neck: positive: No JVD, Trachea midline Respiratory: positive: Chest non-tender, No respiratory distress, Breath sounds nml. negative: Wheezes, Rales, Rhonchi Cardiovascular: positive: Regular rate & rhythm, No murmur Abdomen: positive: Other (disteded abdomen with ascites hyper resonant). negative: Guarding, Rebound Skin: positive: No rash, Warm, Dry, Pallor Extremities: positive: Non-tender, Full ROM, Nml appearance, No pedal edema Neurologic/Psychiatric: positive: Other (obtunded) Conclusion/Plan - Problem List (1) Hepatic encephalopathy Conclusion/Plan: Patient's ammonia level at time of presentation was 3-1.5. Patient was obtunded thus unable to voluntarily take lactulose orally. As a result NG tube was placed. Patient received lactulose 30g via NG tube. We will continue lactulose 30g every 6 hours. We will repeat ammonia level in the morning. Patient is noncompliant with medications at home. However his noncompliance may be a function of an inability to manage his medications. He has declined going to a fci. He needs long-term care. (2) Acute kidney injury Conclusion/Plan: By the time of discharge 3 days ago his creatinine was 1.6. It is 1.9 today. Suspect hepatorenal syndrome We will hold off on any IV fluid administration due to ascites (3) Ascites due to alcoholic cirrhosis Conclusion/Plan: And undergoes routine paracentesis twice a week. We will consult IR for paracentesis on 09/19/2020 if patient is in the hospital (4) Hepatocellular carcinoma Conclusion/Plan: Patient was scheduled for TACE procedure in the upcoming week. However due to frequent paracentesis, profound weakness, severe physical deconditioning, frequent hospitalizations, end-stage liver failure and concern about transportation safety this has been deferred/delayed. The patient sees oncology and interventional radiology at [facility] (5) Medical non-compliance Conclusion/Plan: His noncompliance may be a function of an inability to manage his medications. He has declined going to a fci. He needs long-term care. (6) Diabetes mellitus, insulin dependent (IDDM), uncontrolled Conclusion/Plan: Accu-Cheks every 6 hours. Sliding scale insulin. We will order diabetic diet when patient is more coherent. (7) Generalized weakness Conclusion/Plan: Due to his medical comorbidities. - Lab Results Fish Bones: 09/16/20 07:26 09/16/20 07:26 Core Measures - Anticipated LOS I expect patient to be DC'd or transferred within 96 hours.: Yes - DVT/VTE - Prophylaxis VTE/DVT Device ordered at admit?: Yes VTE/DVT Prophylaxis med ordered at admit?: Yes
[2020-09-16] MEDS: INSULIN REGULAR HUMAN 300 UNIT/3 ML VIAL SUBQ SCH ×2 (12:48→18:19)
[2020-09-16] MEDS ORDERED: LACTULOSE 10 GM/15 ML BOTTLE PO SCH (13:00)
[2020-09-16] MEDS ORDERED: LACTULOSE 10 GM /15 ML UDC PO SCH (13:00)
[2020-09-16] MEDS: FUROSEMIDE 40 MG TABLET PO SCH (14:41)
[2020-09-16] MEDS: rifAXIMin 550 MG TABLET PO SCH ×2 (14:41→21:49)
--- NOTE | 2020-09-16 15:17 | XRAY Report ---
PROCEDURE: Chest for Line Placement INDICATIONS: ng tube placement TECHNIQUE: One view of the chest was acquired. COMPARISON: 09/16/2020 at 0829 hours FINDINGS: Surgical changes and devices: An NG tube tip projects to the stomach. Lungs and pleura: No pleural effusions or pneumothorax. Lungs are clear. Mediastinum: Mediastinal contours appear normal. Heart size is normal. Bones and chest wall: No suspicious bony lesions. Overlying soft tissues appear unremarkable. IMPRESSION: NG tube tip projects to the stomach. Reviewed by: Maikol Cowart MD on 09/16/2020 2:16 PM AKDT Approved by: Maikol Cowart MD on 09/16/2020 2:16 PM AKDT Station ID: [id number]
[2020-09-16] MEDS: SODIUM CHLORIDE FLUSH 0.9% 10 ML SYRINGE IVP SCH (17:26)
[2020-09-16] MEDS: LACTULOSE 10 GM/15 ML BOTTLE PO SCH ×2 (17:41→21:49)
[2020-09-16] MEDS ORDERED: INSULIN GLARGINE 300 UNIT/3 ML PEN SUBQ SCH (21:00)
[2020-09-16] MEDS: buPROPion SR 150 MG TABLET PO SCH (21:49)
[2020-09-17] MEDS: SODIUM CHLORIDE FLUSH 0.9% 10 ML SYRINGE IVP SCH ×3 (02:36→17:35)
[2020-09-17] MEDS: INSULIN REGULAR HUMAN 300 UNIT/3 ML VIAL SUBQ SCH ×2 (03:11→07:01)
[2020-09-17 04:52] LABS: BASOPHILS # (AUTO) 0.1 10^3/uL (0.0-0.1); BASOPHILS % (AUTO) 1.4 %; EOSINOPHILS # (AUTO) 0.2 10^3/uL (0.0-0.7); HCT - HEMATOCRIT 28.1 % (42.0-52.0); HGB - HEMOGLOBIN 9.8 g/dL (14.0-18.0); LYMPHOCYTES % (AUTO) 20.1 %; MEAN CORPUSCULAR HEMOGLOBIN 32.2 pg (27.0-31.0); MEAN CORPUSCULAR HGB CONC 34.9 g/dL (32.0-36.0); MEAN CORPUSCULAR VOLUME 92.4 fL (80.0-94.0); MEAN PLATELET VOLUME 9.6 fL (7.4-11.4); MONOCYTES # (AUTO) 0.9 10^3/uL (0.0-1.0); MONOCYTES % (AUTO) 17.3 %; NEUTROPHILS # (AUTO) 2.9 10^3/uL (1.5-6.6); NEUTROPHILS % (AUTO) 57.8 %; PLT - PLATELET COUNT 101 10^3/uL (130-450); RED BLOOD COUNT 3.04 10^6/uL (4.70-6.10); RED CELL DISTRIBUTION WIDTH 13.8 % (12.0-15.0); WHITE BLOOD COUNT 5.1 x10^3/uL (4.8-10.8)
[2020-09-17 05:03] LABS: CALCIUM 8.4 mg/dL (8.5-10.3); CREATININE 1.7 mg/dL (0.6-1.2); POTASSIUM 3.7 mmol/L (3.5-5.0)
--- NOTE | 2020-09-17 07:52 | PROVIDER PROGRESS NOTE ---
Assessment/Plan - Problem List (1) Hepatic encephalopathy Assessment/Plan: Patient's ammonia level improved from 321.5 down to 112.6. Despite restraints he pulled out the NG tube yesterday. His morning lactulose dose is likely ineffective because he was nauseous and vomited after breakfast. He declined his afternoon dose of lactulose. As the day progressed he became more somnolent. If patient becomes nonresponsive the plan would be to replace NG tube and continue administering lactulose. (2) Acute kidney injury Assessment/Plan: Creatinine is 1.7. This is not far from his baseline. Suspect hepatorenal syndrome (3) Ascites due to alcoholic cirrhosis Assessment/Plan: Paracentesis every Friday and Friday We will consult IR for paracentesis on 09/19/2020 if patient is in the hospital (4) Hepatocellular carcinoma Assessment/Plan: Patient was scheduled for TACE procedure in the upcoming week. However due to frequent paracentesis, profound weakness, severe physical deconditioning, frequent hospitalizations, end-stage liver failure and concern about transportation safety this has been deferred/delayed. The patient sees oncology and interventional radiology at [facility] (5) Medical non-compliance Assessment/Plan: His noncompliance may be a function of an inability to manage his medications. He has declined going to a fci. He needs long term care. (6) Diabetes mellitus, insulin dependent (IDDM), uncontrolled Assessment/Plan: Patient was given a diabetic diet today. However he has been nauseous and vomiting since breakfast. We will hold any further food for now. Sliding scale insulin ordered. Accu-Cheks. Patient is normally on Lantus 65 units subcu. We will decrease the dose if patient continues to be unable to eat (7) Generalized weakness Assessment/Plan: Due to his medical comorbidities. - Current Meds Current Meds: Current Medications Generic Name Dose Route Start Last Admin Trade Name Freq PRN Reason Stop Dose Admin Bupropion HCl 150 mg 09/16/20 21:00 09/16/20 21:49 Bupropion Sr 150 Mg Tablet PO 150 mg BID JOY Administration Furosemide 40 mg 09/16/20 12:00 09/16/20 14:41 Furosemide 40 Mg Tablet PO 40 mg DAILY JOY Administration Lactulose 30 gm 09/16/20 17:00 09/16/20 21:49 Lactulose 10 Gm/15 Ml Bottle PO 30 gm QID JOY Administration Rifaximin 550 mg 09/16/20 12:00 09/16/20 21:49 Rifaximin 550 Mg Tablet PO 550 mg BID JOY Administration Sodium Chloride 10 ml 09/16/20 17:00 09/17/20 02:36 Sodium Chloride Flush 0.9% 10 Ml Syringe IVP 10 ml 0100,0900,1700 JOY Administration - Lab Result Fish Bone Diagrams: 09/17/20 04:30 09/17/20 04:30 - Additional Planning My Orders: My Active Orders 09/16/20 10:05 Activity Orders [RC] Q2HR IO [RC] IOSHIFT Initiate Bowel Care Protocol [RC] .protocol Initiate Line Care Protocol [RC] QSHIFT Initiate Personal Care Protoco [RC] .protocol Telemetry- [RC] Q4HR Vital Signs [RC] Q4HR Ondansetron Inj [Zofran Inj] 4 mg IVP Q6HR PRN Sodium Chloride Flush 0.9% [Normal Saline Flush 0.9%] 10 ml IVP PRN PRN Code Status [OTHERS] Routine Condition of Patient [OTHERS] Routine DVT Prophylaxis [OTHERS] Routine 09/16/20 10:13 SCDs [RC] QSHIFT 09/16/20 10:16 Blunt Insertion [RC] QSHIFT 09/16/20 10:21 Initiate Hypoglycemia Protocol [RC] .protocol 09/16/20 12:00 Furosemide [Lasix] 40 mg PO DAILY rifAXIMin [Xifaxan] 550 mg PO BID 09/16/20 15:32 Miscellaenous Nursing Order [RC] QSHIFT 09/16/20 17:00 Lactulose 30 gm PO QID Sodium Chloride Flush 0.9% [Normal Saline Flush 0.9%] 10 ml IVP 0100,0900,1700 09/16/20 21:00 buPROPion [Wellbutrin Sr] 150 mg PO BID 09/17/20 07:48 Blood Glucose Checks - Eating [RC] 0800,1200,1700,2100 Initiate Hypoglycemia Protocol [RC] .protocol 09/17/20 08:00 Insulin Aspart [NovoLOG] 3 - 11 unit SUBQ 0800,1200,1700,2100 Insulin Glargine [Lantus Solostar] DOSE unit SUBQ DAILY PM 07/04/21 09:00 Multivitamin W/Minerals [Theragran M] 1 tab PO DAILY Tamsulosin [Flomax] 0.4 mg PO DAILY Venlafaxine ER [Effexor ER] 75 mg PO DAILY 09/18/20 05:00 AMMONIA [CHEM] DAILYLAB BMP - BASIC METABOLIC PANEL [CHEM] DAILYLAB CBC - COMP BLD CT W/AUTO DIFF [HEME] DAILYLAB 09/19/20 05:00 AMMONIA [CHEM] DAILYLAB BMP - BASIC METABOLIC PANEL [CHEM] DAILYLAB CBC - COMP BLD CT W/AUTO DIFF [HEME] DAILYLAB 09/20/20 05:00 AMMONIA [CHEM] DAILYLAB BMP - BASIC METABOLIC PANEL [CHEM] DAILYLAB CBC - COMP BLD CT W/AUTO DIFF [HEME] DAILYLAB 09/21/20 05:00 AMMONIA [CHEM] DAILYLAB BMP - BASIC METABOLIC PANEL [CHEM] DAILYLAB CBC - COMP BLD CT W/AUTO DIFF [HEME] DAILYLAB Subjective - Subjective Patient Reports: Other (Patient was more alert this am. At the time of the visit he was attempting to eat however he kept dropping his spoon because of weakness. After breakfast he became nauseous and vomited a couple of times. He also refused his afternoon dose of lactulose. As a result he is now somnolent) Objective Vital Signs: Vital Signs - 24 hr 09/16/20 09/16/20 09/16/20 09:12 11:04 11:46 Temperature 36.3 C L Heart Rate 85 83 Heart Rate [ Brachial] Heart Rate [ 88 Monitoring electrodes] Respiratory 13 14 16 Rate Blood Pressure 103/64 103/63 Blood Pressure 110/66 [Right Brachial artery] O2 Saturation 100 100 97 09/16/20 09/16/20 09/16/20 13:00 15:50 21:09 Temperature 35.6 C L 36.0 C L 36.6 C Heart Rate Heart Rate [ Brachial] Heart Rate [ 83 85 Monitoring electrodes] Respiratory 18 15 16 Rate Blood Pressure Blood Pressure 89/54 L 93/76 105/62 [Right Brachial artery] O2 Saturation 100 98 100 09/16/20 09/17/20 23:34 04:33 Temperature 36 C L 36.6 C Heart Rate Heart Rate [ 87 86 Brachial] Heart Rate [ Monitoring electrodes] Respiratory 16 20 Rate Blood Pressure Blood Pressure 104/66 109/67 [Right Brachial artery] O2 Saturation 100 100 Oxygen O2 Source Room air I&O (Last 24 Hrs): Intake and Output Totals x24h 09/15/20 09/16/20 09/17/20 23:59 23:59 23:59 Intake Total 1045.2 Output Total 1700 425 Balance -654.8 -425 General: Alert, Oriented x3, Other (weak) HEENT: PERRLA, EOMI Neck: Supple, No JVD Neuro: Alert, Non Focal, Oriented Times 3 Cardiovascular: Regular rate, Normal S1, Normal S2 Respiratory: Chest non-tender, No respiratory distress, Breath sounds nml Abdomen: Soft, Other (distended abdomen) Extremities: No clubbing, No edema Skin: No rashes - Results Results: Laboratory Results WBC 5.1 x10^3/uL (4.8-10.8) 09/17/20 04:30 RBC 3.04 10^6/uL (4.70-6.10) L 09/17/20 04:30 Hgb 9.8 g/dL (14.0-18.0) L 09/17/20 04:30 Hct 28.1 % (42.0-52.0) L 09/17/20 04:30 MCV 92.4 fL (80.0-94.0) 09/17/20 04:30 MCH 32.2 pg (27.0-31.0) H 09/17/20 04:30 MCHC 34.9 g/dL (32.0-36.0) 09/17/20 04:30 RDW 13.8 % (12.0-15.0) 09/17/20 04:30 Plt Count 101 10^3/uL (130-450) L 09/17/20 04:30 MPV 9.6 fL (7.4-11.4) 09/17/20 04:30 Neut # (Auto) 2.9 10^3/uL (1.5-6.6) 09/17/20 04:30 Lymph # (Auto) 1.0 10^3/uL (1.5-3.5) L 09/17/20 04:30 [place] # (Auto) 0.9 10^3/uL (0.0-1.0) 09/17/20 04:30 Eos # (Auto) 0.2 10^3/uL (0.0-0.7) 09/17/20 04:30 Baso # (Auto) 0.1 10^3/uL (0.0-0.1) 09/17/20 04:30 Absolute Nucleated RBC 0.00 x10^3/uL 09/17/20 04:30 Nucleated RBC % 0.0 /100WBC 09/17/20 04:30 PT 13.4 secs (9.9-12.6) H 09/16/20 07:26 INR 1.2 (0.8-1.2) 09/16/20 07:26 Sodium 128 mmol/L (135-145) L 09/17/20 04:30 Potassium 3.7 mmol/L (3.5-5.0) 09/17/20 04:30 Chloride 98 mmol/L (101-111) L 09/17/20 04:30 Carbon Dioxide 21 mmol/L (21-32) 09/17/20 04:30 Anion Gap 9.0 (6-13) 09/17/20 04:30 BUN 63 mg/dL (6-20) H 09/17/20 04:30 Creatinine 1.7 mg/dL (0.6-1.2) H 09/17/20 04:30 Estimated GFR (MDRD) 43 (>89) L 09/17/20 04:30 Glucose 263 mg/dL (70-100) H 09/17/20 04:30 Calcium 8.4 mg/dL (8.5-10.3) L 09/17/20 04:30 Total Bilirubin 2.0 mg/dL (0.2-1.0) H 09/16/20 07:26 AST 54 IU/L (10-42) H 09/16/20 07:26 ALT 35 IU/L (10-60) 09/16/20 07:26 Alkaline Phosphatase 91 IU/L (42-121) 09/16/20 07:26 Ammonia 112.6 umol/L (7-35) H* 09/17/20 04:30 Total Protein 5.7 g/dL (6.7-8.2) L 09/16/20 07:26 Albumin 3.5 g/dL (3.2-5.5) 09/16/20 07:26 Globulin 2.2 g/dL (2.1-4.2) 09/16/20 07:26 Albumin/Globulin Ratio 1.6 (1.0-2.2) 09/16/20 07:26 Lipase 117 U/L (22-51) H 09/16/20 07:26 Urine Color YELLOW 09/16/20 07:35 Urine Clarity CLEAR (CLEAR) 09/16/20 07:35 Urine pH 5.5 PH (5.0-7.5) 09/16/20 07:35 Ur Specific [place] 1.020 (1.002-1.030) 09/16/20 07:35 Urine Protein NEGATIVE mg/dL (NEGATIVE) 09/16/20 07:35 Urine Glucose (UA) NEGATIVE mg/dL (NEGATIVE) 09/16/20 07:35 Urine Ketones TRACE mg/dL (NEGATIVE) 09/16/20 07:35 Urine Occult Blood TRACE-LYSE (NEGATIVE) 09/16/20 07:35 Urine Nitrite NEGATIVE (NEGATIVE) 09/16/20 07:35 Urine Bilirubin NEGATIVE (NEGATIVE) 09/16/20 07:35 Urine Urobilinogen 1 (NORMAL) E.U./dL (NORMAL) 09/16/20 07:35 Ur Leukocyte Esterase NEGATIVE (NEGATIVE) 09/16/20 07:35 Ur Microscopic Review NOT INDICATED 09/16/20 07:35 Urine Culture Comments NOT INDICATED 09/16/20 07:35 Nasal Adenovirus (PCR) NOT DETECTED 09/16/20 07:50 Nasal B. parapertussis DNA (PCR) NOT DETECTED 09/16/20 07:50 Nasal Coronavir 229E PCR NOT DETECTED 09/16/20 07:50 Nasal Coronavir HKU1 PCR NOT DETECTED 09/16/20 07:50 Nasal Coronavir NL63 PCR NOT DETECTED 09/16/20 07:50 Nasal Coronavir OC43 PCR NOT DETECTED 09/16/20 07:50 Nasal Enterovir/Rhinovir PCR NOT DETECTED 09/16/20 07:50 Nasal Influenza B PCR NOT DETECTED 09/16/20 07:50 Nasal Influenza A PCR NOT DETECTED 09/16/20 07:50 Nasal Parainfluen 1 PCR NOT DETECTED 09/16/20 07:50 Nasal Parainfluen 2 PCR NOT DETECTED 09/16/20 07:50 Nasal Parainfluen 3 PCR NOT DETECTED 09/16/20 07:50 Nasal Parainfluen 4 PCR NOT DETECTED 09/16/20 07:50 Nasal RSV (PCR) NOT DETECTED 09/16/20 07:50 Nasal B.pertussis DNA PCR NOT DETECTED 09/16/20 07:50 Nasal C.pneumoniae (PCR) NOT DETECTED 09/16/20 07:50 Natanael Human Metapneumo PCR NOT DETECTED 09/16/20 07:50 Nasal M.pneumoniae (PCR) NOT DETECTED 09/16/20 07:50 Nasal SARS-CoV-2 (PCR) NOT DETECTED 09/16/20 07:50 - Procedures Procedures: Procedures DRAINAGE OF PERITONEAL CAVITY, PERCUTANEOUS APPROACH (09/01/20) ABX Reporting Has patient been on IV antibiotics over the past 48 hours?: No
[2020-09-17] MEDS: INSULIN ASPART 300 UNIT/3 ML PEN SUBQ SCH ×4 (08:15→21:32)
[2020-09-17] MEDS: TAMSULOSIN 0.4 MG CAPSULE PO SCH (08:15)
[2020-09-17] MEDS: VENLAFAXINE ER 75 MG CAPSULE PO SCH (08:16)
[2020-09-17] MEDS: buPROPion SR 150 MG TABLET PO SCH ×2 (08:16→21:32)
[2020-09-17] MEDS: SPIRONOLACTONE 25 MG TABLET PO SCH (08:16)
[2020-09-17] MEDS: rifAXIMin 550 MG TABLET PO SCH ×2 (08:16→21:31)
[2020-09-17] MEDS: FUROSEMIDE 40 MG TABLET PO SCH (08:16)
[2020-09-17] MEDS: MULTIVITAMIN W/MINERALS TABLET PO SCH (08:18)
[2020-09-17] MEDS: LACTULOSE 10 GM/15 ML BOTTLE PO SCH ×5 (08:55→21:33)
[2020-09-17] MEDS: ONDANSETRON 4 MG/2 ML VIAL IVP PRN (12:58)
[2020-09-17] MEDS: INSULIN GLARGINE 300 UNIT/3 ML PEN SUBQ SCH (21:32)
[2020-09-18 05:42] LABS: BASOPHILS # (AUTO) 0.1 10^3/uL (0.0-0.1); BASOPHILS % (AUTO) 1.2 %; EOSINOPHILS # (AUTO) 0.2 10^3/uL (0.0-0.7); EOSINOPHILS % (AUTO) 3.5 %; HCT - HEMATOCRIT 25.4 % (42.0-52.0); HGB - HEMOGLOBIN 9.2 g/dL (14.0-18.0); LYMPHOCYTES # (AUTO) 1.3 10^3/uL (1.5-3.5); LYMPHOCYTES % (AUTO) 24.7 %; MEAN CORPUSCULAR HEMOGLOBIN 32.6 pg (27.0-31.0); MEAN CORPUSCULAR HGB CONC 36.2 g/dL (32.0-36.0); MEAN CORPUSCULAR VOLUME 90.1 fL (80.0-94.0); MEAN PLATELET VOLUME 9.4 fL (7.4-11.4); MONOCYTES # (AUTO) 0.8 10^3/uL (0.0-1.0); NEUTROPHILS # (AUTO) 2.8 10^3/uL (1.5-6.6); NEUTROPHILS % (AUTO) 54.4 %; PLT - PLATELET COUNT 91 10^3/uL (130-450); RED BLOOD COUNT 2.82 10^6/uL (4.70-6.10); RED CELL DISTRIBUTION WIDTH 13.3 % (12.0-15.0); WHITE BLOOD COUNT 5.1 x10^3/uL (4.8-10.8)
[2020-09-18] MEDS: SODIUM CHLORIDE FLUSH 0.9% 10 ML SYRINGE IVP SCH ×3 (05:42→16:39)
[2020-09-18 05:50] LABS: CALCIUM 8.4 mg/dL (8.5-10.3); CREATININE 1.7 mg/dL (0.6-1.2); POTASSIUM 3.9 mmol/L (3.5-5.0)
[2020-09-18] MEDS: ONDANSETRON 4 MG/2 ML VIAL IVP PRN (07:40)
[2020-09-18] MEDS: INSULIN ASPART 300 UNIT/3 ML PEN SUBQ SCH ×3 (07:48→16:38)
[2020-09-18] MEDS: SPIRONOLACTONE 25 MG TABLET PO SCH (09:04)
[2020-09-18] MEDS: rifAXIMin 550 MG TABLET PO SCH (09:04)
[2020-09-18] MEDS: FUROSEMIDE 40 MG TABLET PO SCH (09:04)
[2020-09-18] MEDS: buPROPion SR 150 MG TABLET PO SCH (09:04)
[2020-09-18] MEDS: MULTIVITAMIN W/MINERALS TABLET PO SCH (09:04)
[2020-09-18] MEDS: VENLAFAXINE ER 75 MG CAPSULE PO SCH (09:05)
[2020-09-18] MEDS: TAMSULOSIN 0.4 MG CAPSULE PO SCH (09:05)
[2020-09-18] MEDS: LACTULOSE 10 GM/15 ML BOTTLE PO SCH ×3 (09:09→16:39)
[2020-09-18] MEDS ORDERED: METOCLOPRAMIDE 10 MG/2 ML VIAL IVP PRN (13:26)
--- NOTE | 2020-09-18 16:19 | PHARMACY PROGRESS NOTE ---
- Best Possible Medication History Admit Date and Time: 09/16/20 1005 Processed by: Nursing Medication History completed: Yes As the person ultimately responsible for medication therapy, providers are able to order a medication from an existing home medication list in [facility] via the "Reconcile Routine" prior to Confirmation of that medication by support manager. Such practice is discouraged except when the physician, in their clinical judgment, deems that a medical need exists for a medication without regard to previous use.
--- NOTE | 2020-09-18 19:08 | PROVIDER PROGRESS NOTE ---
Assessment/Plan - Problem List (1) Hepatic encephalopathy Assessment/Plan: Patient's ammonia level 125.4 today. Continue lactulose 30mg po qid If patient becomes nonresponsive the plan would be to replace NG tube and continue administering lactulose. (2) Acute kidney injury Assessment/Plan: Creatinine is 1.7. This is not far from his baseline. Suspect hepatorenal syndrome (3) Ascites due to alcoholic cirrhosis Assessment/Plan: Paracentesis every Friday and Friday We will consult IR for paracentesis on 09/19/2020 (4) Hepatocellular carcinoma Assessment/Plan: Patient was scheduled for TACE procedure in the upcoming week. However due to frequent paracentesis, profound weakness, severe physical deconditioning, frequent hospitalizations, end-stage liver failure and concern about transportation safety this has been deferred/delayed. The patient sees oncology and interventional radiology at [facility] (5) Medical non-compliance Assessment/Plan: His noncompliance may be a function of an inability to manage his medications. He has declined going to a fci. He needs snf care. (6) Diabetes mellitus, insulin dependent (IDDM), uncontrolled Assessment/Plan: Patient was given a diabetic diet today. However he has been nauseous and vomiting since breakfast. We will hold any further food for now. Sliding scale insulin ordered. Accu-Cheks. Patient is normally on Lantus 65 units subcu. We will decrease the dose if patient continues to be unable to eat (7) Generalized weakness Assessment/Plan: Due to his medical comorbidities. - Current Meds Current Meds: Current Medications Generic Name Dose Route Start Last Admin Trade Name Lore PRN Reason Stop Dose Admin Bupropion HCl 150 mg 09/16/20 21:00 09/18/20 09:04 Bupropion Sr 150 Mg Tablet PO 150 mg BID JOY Administration Furosemide 40 mg 09/16/20 12:00 09/18/20 09:04 Furosemide 40 Mg Tablet PO 40 mg DAILY JOY Administration Insulin Aspart 3 - 11 unit 09/17/20 08:00 09/18/20 16:38 Insulin Aspart 300 Unit/3 Ml Pen SUBQ 5 unit 0800,1200,1700,2100 JOY Administration Protocol Insulin Glargine 65 unit 09/17/20 21:00 09/17/20 21:32 Insulin Glargine 300 Unit/3 Ml Pen SUBQ 65 unit QPM JOY Administration Lactulose 30 gm 09/16/20 17:00 09/18/20 16:39 Lactulose 10 Gm/15 Ml Bottle PO 30 gm QID JOY Administration Metoclopramide HCl 5 mg 09/18/20 13:26 09/18/20 13:36 Metoclopramide 10 Mg/2 Ml Vial IVP 5 mg Q6HR PRN Administration Nausea / Vomiting Multivitamins/Minerals 1 tab 09/17/20 09:00 09/18/20 09:04 Multivitamin W/Minerals Tablet PO 1 tab DAILY JOY Administration Ondansetron HCl 4 mg 09/16/20 10:05 09/18/20 07:40 Ondansetron 4 Mg/2 Ml Vial IVP 4 mg Q6HR PRN Administration Nausea / Vomiting Rifaximin 550 mg 09/16/20 12:00 09/18/20 09:04 Rifaximin 550 Mg Tablet PO 550 mg BID JOY Administration Sodium Chloride 10 ml 09/16/20 10:05 09/18/20 05:42 Sodium Chloride Flush 0.9% 10 Ml Syringe IVP 10 ml PRN PRN Administration NEEDED PER PROVIDER ORDERS Sodium Chloride 10 ml 09/16/20 17:00 09/18/20 16:39 Sodium Chloride Flush 0.9% 10 Ml Syringe IVP 10 ml 0100,0900,1700 JOY Administration Spironolactone 25 mg 09/17/20 09:00 09/18/20 09:04 Spironolactone 25 Mg Tablet PO 25 mg DAILY JOY Administration Tamsulosin HCl 0.4 mg 09/17/20 09:00 09/18/20 09:05 Tamsulosin 0.4 Mg Capsule PO 0.4 mg DAILY JOY Administration Venlafaxine HCl 75 mg 09/17/20 09:00 09/18/20 09:05 Venlafaxine Er 75 Mg Capsule PO 75 mg DAILY JOY Administration - Lab Result Fish Bone Diagrams: 09/18/20 05:30 09/18/20 05:30 - Additional Planning My Orders: My Active Orders 09/17/20 21:00 Insulin Glargine [Lantus Solostar] 65 unit SUBQ QPM 09/18/20 13:26 Metoclopramide Inj [Reglan Inj] 5 mg IVP Q6HR PRN 09/19/20 05:00 AMMONIA [CHEM] DAILYLAB BMP - BASIC METABOLIC PANEL [CHEM] DAILYLAB CBC - COMP BLD CT W/AUTO DIFF [HEME] DAILYLAB 09/20/20 05:00 AMMONIA [CHEM] DAILYLAB BMP - BASIC METABOLIC PANEL [CHEM] DAILYLAB CBC - COMP BLD CT W/AUTO DIFF [HEME] DAILYLAB 09/21/20 05:00 AMMONIA [CHEM] DAILYLAB BMP - BASIC METABOLIC PANEL [CHEM] DAILYLAB CBC - COMP BLD CT W/AUTO DIFF [HEME] DAILYLAB Subjective - Subjective Patient Reports: Other (He was more awake this morning. Appeared to be laying comfortably in bed. However he complained of nausea. The rest of the visit was unremarkable.) Objective Vital Signs: Vital Signs - 24 hr 09/17/20 09/18/20 09/18/20 20:04 01:00 05:00 Temperature 36.6 C 36.4 C L 36.4 C L Heart Rate [ 76 75 68 Brachial] Respiratory 18 18 19 Rate Blood Pressure 92/59 L 97/60 93/56 L [Right Brachial artery] O2 Saturation 100 98 98 09/18/20 09/18/20 09/18/20 09:00 12:40 16:26 Temperature 36.8 C 36.5 C 36.4 C L Heart Rate [ 71 75 75 Brachial] Respiratory 15 16 18 Rate Blood Pressure 96/56 L 108/62 97/56 L [Right Brachial artery] O2 Saturation 98 100 100 Oxygen O2 Source Room air I&O (Last 24 Hrs): Intake and Output Totals x24h 09/16/20 09/17/20 09/18/20 23:59 23:59 23:59 Intake Total 1045.2 830 1540 Output Total 1700 825 225 Balance -654.8 5 1315 Comments/Notes: General: Alert, Oriented x3, Other (weak) HEENT: PERRLA, EOMI Neck: Supple, No JVD Neuro: Alert, Non Focal, Oriented Times 3 Cardiovascular: Regular rate, Normal S1, Normal S2 Respiratory: Chest non-tender, No respiratory distress, Breath sounds nml Abdomen: Soft, Other (distended abdomen) Extremities: No clubbing, No edema Skin: No rashes - Results Results: Laboratory Results WBC 5.1 x10^3/uL (4.8-10.8) 09/18/20 05:30 RBC 2.82 10^6/uL (4.70-6.10) L 09/18/20 05:30 Hgb 9.2 g/dL (14.0-18.0) L 09/18/20 05:30 Hct 25.4 % (42.0-52.0) L 09/18/20 05:30 MCV 90.1 fL (80.0-94.0) 09/18/20 05:30 MCH 32.6 pg (27.0-31.0) H 09/18/20 05:30 MCHC 36.2 g/dL (32.0-36.0) H 09/18/20 05:30 RDW 13.3 % (12.0-15.0) 09/18/20 05:30 Plt Count 91 10^3/uL (130-450) L 09/18/20 05:30 MPV 9.4 fL (7.4-11.4) 09/18/20 05:30 Neut # (Auto) 2.8 10^3/uL (1.5-6.6) 09/18/20 05:30 Lymph # (Auto) 1.3 10^3/uL (1.5-3.5) L 09/18/20 05:30 [place] # (Auto) 0.8 10^3/uL (0.0-1.0) 09/18/20 05:30 Eos # (Auto) 0.2 10^3/uL (0.0-0.7) 09/18/20 05:30 Baso # (Auto) 0.1 10^3/uL (0.0-0.1) 09/18/20 05:30 Absolute Nucleated RBC 0.00 x10^3/uL 09/18/20 05:30 Nucleated RBC % 0.0 /100WBC 09/18/20 05:30 PT 13.4 secs (9.9-12.6) H 09/16/20 07:26 INR 1.2 (0.8-1.2) 09/16/20 07:26 Sodium 128 mmol/L (135-145) L 09/18/20 05:30 Potassium 3.9 mmol/L (3.5-5.0) 09/18/20 05:30 Chloride 98 mmol/L (101-111) L 09/18/20 05:30 Carbon Dioxide 22 mmol/L (21-32) 09/18/20 05:30 Anion Gap 8.0 (6-13) 09/18/20 05:30 BUN 64 mg/dL (6-20) H 09/18/20 05:30 Creatinine 1.7 mg/dL (0.6-1.2) H 09/18/20 05:30 Estimated GFR (MDRD) 43 (>89) L 09/18/20 05:30 Glucose 74 mg/dL (70-100) 09/18/20 05:30 Calcium 8.4 mg/dL (8.5-10.3) L 09/18/20 05:30 Total Bilirubin 2.0 mg/dL (0.2-1.0) H 09/16/20 07:26 AST 54 IU/L (10-42) H 09/16/20 07:26 ALT 35 IU/L (10-60) 09/16/20 07:26 Alkaline Phosphatase 91 IU/L (42-121) 09/16/20 07:26 Ammonia 125.4 umol/L (7-35) H* 09/18/20 05:30 Total Protein 5.7 g/dL (6.7-8.2) L 09/16/20 07:26 Albumin 3.5 g/dL (3.2-5.5) 09/16/20 07:26 Globulin 2.2 g/dL (2.1-4.2) 09/16/20 07:26 Albumin/Globulin Ratio 1.6 (1.0-2.2) 09/16/20 07:26 Lipase 117 U/L (22-51) H 09/16/20 07:26 Urine Color YELLOW 09/16/20 07:35 Urine Clarity CLEAR (CLEAR) 09/16/20 07:35 Urine pH 5.5 PH (5.0-7.5) 09/16/20 07:35 Ur Specific [place] 1.020 (1.002-1.030) 09/16/20 07:35 Urine Protein NEGATIVE mg/dL (NEGATIVE) 09/16/20 07:35 Urine Glucose (UA) NEGATIVE mg/dL (NEGATIVE) 09/16/20 07:35 Urine Ketones TRACE mg/dL (NEGATIVE) 09/16/20 07:35 Urine Occult Blood TRACE-LYSE (NEGATIVE) 09/16/20 07:35 Urine Nitrite NEGATIVE (NEGATIVE) 09/16/20 07:35 Urine Bilirubin NEGATIVE (NEGATIVE) 09/16/20 07:35 Urine Urobilinogen 1 (NORMAL) E.U./dL (NORMAL) 09/16/20 07:35 Ur Leukocyte Esterase NEGATIVE (NEGATIVE) 09/16/20 07:35 Ur Microscopic Review NOT INDICATED 09/16/20 07:35 Urine Culture Comments NOT INDICATED 09/16/20 07:35 Nasal Adenovirus (PCR) NOT DETECTED 09/16/20 07:50 Nasal B. parapertussis DNA (PCR) NOT DETECTED 09/16/20 07:50 Nasal Coronavir 229E PCR NOT DETECTED 09/16/20 07:50 Nasal Coronavir HKU1 PCR NOT DETECTED 09/16/20 07:50 Nasal Coronavir NL63 PCR NOT DETECTED 09/16/20 07:50 Nasal Coronavir OC43 PCR NOT DETECTED 09/16/20 07:50 Nasal Enterovir/Rhinovir PCR NOT DETECTED 09/16/20 07:50 Nasal Influenza B PCR NOT DETECTED 09/16/20 07:50 Nasal Influenza A PCR NOT DETECTED 09/16/20 07:50 Nasal Parainfluen 1 PCR NOT DETECTED 09/16/20 07:50 Nasal Parainfluen 2 PCR NOT DETECTED 09/16/20 07:50 Nasal Parainfluen 3 PCR NOT DETECTED 09/16/20 07:50 Nasal Parainfluen 4 PCR NOT DETECTED 09/16/20 07:50 Nasal RSV (PCR) NOT DETECTED 09/16/20 07:50 Nasal B.pertussis DNA PCR NOT DETECTED 09/16/20 07:50 Nasal C.pneumoniae (PCR) NOT DETECTED 09/16/20 07:50 Natanael Human Metapneumo PCR NOT DETECTED 09/16/20 07:50 Nasal M.pneumoniae (PCR) NOT DETECTED 09/16/20 07:50 Nasal SARS-CoV-2 (PCR) NOT DETECTED 09/16/20 07:50 - Procedures Procedures: Procedures DRAINAGE OF PERITONEAL CAVITY, PERCUTANEOUS APPROACH (09/01/20) ABX Reporting Has patient been on IV antibiotics over the past 48 hours?: No
[2020-09-19] MEDS: SODIUM CHLORIDE FLUSH 0.9% 10 ML SYRINGE IVP SCH ×3 (00:45→16:40)
[2020-09-19] MEDS ORDERED: LACTULOSE 10 GM /15 ML UDC ONE (00:45)
[2020-09-19] MEDS: rifAXIMin 550 MG TABLET PO SCH ×3 (00:45→21:23)
[2020-09-19] MEDS: ONDANSETRON 4 MG/2 ML VIAL IVP PRN (00:45)
[2020-09-19] MEDS: INSULIN ASPART 300 UNIT/3 ML PEN SUBQ SCH ×5 (00:45→21:24)
[2020-09-19] MEDS: buPROPion SR 150 MG TABLET PO SCH ×3 (00:45→21:23)
[2020-09-19] MEDS: INSULIN GLARGINE 300 UNIT/3 ML PEN SUBQ SCH ×2 (00:46→21:23)
[2020-09-19] MEDS: LACTULOSE 10 GM/15 ML BOTTLE PO SCH ×5 (00:48→21:23)
[2020-09-19 06:50] LABS: BASOPHILS # (AUTO) 0.1 10^3/uL (0.0-0.1); BASOPHILS % (AUTO) 1.1 %; EOSINOPHILS # (AUTO) 0.2 10^3/uL (0.0-0.7); EOSINOPHILS % (AUTO) 3.3 %; HCT - HEMATOCRIT 26.6 % (42.0-52.0); HGB - HEMOGLOBIN 9.6 g/dL (14.0-18.0); LYMPHOCYTES # (AUTO) 1.1 10^3/uL (1.5-3.5); LYMPHOCYTES % (AUTO) 20.5 %; MEAN CORPUSCULAR HEMOGLOBIN 32.7 pg (27.0-31.0); MEAN CORPUSCULAR HGB CONC 36.1 g/dL (32.0-36.0); MEAN CORPUSCULAR VOLUME 90.5 fL (80.0-94.0); MEAN PLATELET VOLUME 9.4 fL (7.4-11.4); MONOCYTES # (AUTO) 0.8 10^3/uL (0.0-1.0); MONOCYTES % (AUTO) 15.2 %; NEUTROPHILS # (AUTO) 3.3 10^3/uL (1.5-6.6); NEUTROPHILS % (AUTO) 59.7 %; PLT - PLATELET COUNT 93 10^3/uL (130-450); RED BLOOD COUNT 2.94 10^6/uL (4.70-6.10); RED CELL DISTRIBUTION WIDTH 13.3 % (12.0-15.0); WHITE BLOOD COUNT 5.5 x10^3/uL (4.8-10.8)
[2020-09-19 07:00] LABS: CALCIUM 8.3 mg/dL (8.5-10.3); CREATININE 1.8 mg/dL (0.6-1.2); POTASSIUM 4.2 mmol/L (3.5-5.0)
[2020-09-19 07:05] LABS: INR 1.2 (0.8-1.2); PT - PROTHROMBIN TIME 13.2 secs (9.9-12.6)
[2020-09-19] MEDS ORDERED: SODIUM CHLORIDE 0.9% 1,000 ML IV SCH (09:00)
[2020-09-19] MEDS: MULTIVITAMIN W/MINERALS TABLET PO SCH (11:06)
[2020-09-19] MEDS: VENLAFAXINE ER 75 MG CAPSULE PO SCH (11:06)
[2020-09-19] MEDS: TAMSULOSIN 0.4 MG CAPSULE PO SCH (11:06)
--- NOTE | 2020-09-19 14:08 | Ultrasound Report ---
PROCEDURE: Abdominal Paracentesis INDICATIONS: Alcoholic liver cirrhosis with ascites TECHNIQUE: The indications, alternatives, benefits, risks, and complications of the procedure were explained to the patient. Written informed consent was obtained and placed in the chart. The abdomen and pelvis were examined sonographically, and an appropriate site was chosen for paracentesis. The skin was pre pared and draped in the usual sterile fashion, and 1% lidocaine was infiltrated from the skin down th rough the peritoneal surface. A 19-gauge catheter-covered needle was then introduced into the perito valerie space, the catheter was advanced and the needle was withdrawn, and thereafter peritoneal fluid w as withdrawn. The catheter was then removed and a dressing was applied. The fluid was discarded if the clinician did not order diagnostic testing of the fluid. FINDINGS: Access site: Right lower quadrant Needle: One-Step centesis catheter with introducer needle. Fluid volume and description: 6.4 L serosanguineous Fluid sent for diagnostic testing: Not requested Medications: 1% lidocaine for local anaesthesia. Complications: None. IMPRESSION: Technically successful ultrasound-guided paracentesis. Reviewed by: Hank Busch MD on 09/19/2020 2:06 PM PDT Approved by: Hank Busch MD on 09/19/2020 2:06 PM PDT Station ID: [id number]
--- NOTE | 2020-09-19 14:14 | PROVIDER PROGRESS NOTE ---
Subjective - Prog Note Date Prog Note Date: 09/19/20 - Subjective Subjective: Reports feeling better after having a paracentesis this morning. He denies any chest pain. He is agreeable to assisted living facility now. Current Medications - Current Medications Current Medications: Active Medications Bupropion HCl (Bupropion Sr 150 Mg Tablet) 150 mg PO BID [facility] Last Admin: 09/19/20 11:05 Dose: 150 mg Documented by: Sodium Chloride (Normal Saline 0.9%) 1,000 mls @ 100 mls/hr IV .Q10H [facility] Stop: 09/19/20 18:59 Last Admin: 09/19/20 09:09 Dose: 100 mls/hr Documented by: Albumin Human (Albuminar-25) 12.5 gm in 50 mls @ 2 mls/min IV Q30M [facility] Stop: 09/19/20 16:54 Insulin Aspart (Insulin Aspart 300 Unit/3 Ml Pen) 3 - 11 unit SUBQ 0800,1200,1700,2100 [facility]; Protocol Last Admin: 09/19/20 12:03 Dose: 3 unit Documented by: Insulin Glargine (Insulin Glargine 300 Unit/3 Ml Pen) 65 unit SUBQ QPM [facility] Last Admin: 09/19/20 00:46 Dose: 65 unit Documented by: Lactulose (Lactulose 10 Gm/15 Ml Bottle) 30 gm PO QID [facility] Last Admin: 09/19/20 14:01 Dose: 30 gm Documented by: Metoclopramide HCl (Metoclopramide 10 Mg/2 Ml Vial) 5 mg IVP Q6HR PRN PRN Reason: Nausea / Vomiting Last Admin: 09/18/20 13:36 Dose: 5 mg Documented by: Multivitamins/Minerals (Multivitamin W/Minerals Tablet) 1 tab PO DAILY [facility] Last Admin: 09/19/20 11:06 Dose: 1 tab Documented by: Ondansetron HCl (Ondansetron 4 Mg/2 Ml Vial) 4 mg IVP Q6HR PRN PRN Reason: Nausea / Vomiting Last Admin: 09/19/20 00:45 Dose: 4 mg Documented by: Rifaximin (Rifaximin 550 Mg Tablet) 550 mg PO BID [facility] Last Admin: 09/19/20 11:06 Dose: 550 mg Documented by: Sodium Chloride (Sodium Chloride Flush 0.9% 10 Ml Syringe) 10 ml IVP PRN PRN PRN Reason: NEEDED PER PROVIDER ORDERS Last Admin: 09/18/20 05:42 Dose: 10 ml Documented by: Sodium Chloride (Sodium Chloride Flush 0.9% 10 Ml Syringe) 10 ml IVP 0100,0900,1700 [facility] Last Admin: 09/19/20 11:07 Dose: 10 ml Documented by: Tamsulosin HCl (Tamsulosin 0.4 Mg Capsule) 0.4 mg PO DAILY [facility] Last Admin: 09/19/20 11:06 Dose: 0.4 mg Documented by: Venlafaxine HCl (Venlafaxine Er 75 Mg Capsule) 75 mg PO DAILY [facility] Last Admin: 09/19/20 11:06 Dose: 75 mg Documented by: Albuterol Sulfate [Proair Hfa Inhaler] 1 - 2 puffs INH Q4H PRN 11/13/16 Insulin Glargine,Hum.rec.anlog [Basaglar Kwikpen U-100] 65 units SUBQ DAILY PM 11/13/16 Insulin Regular, Human [Humulin R] 5 - 20 units SUBQ TIDWM 11/13/16 buPROPion HCL [Bupropion HCl Sr] 150 mg PO BID 02/15/20 Sodium Polystyrene Sulfonate 15 g PO BID PRN 09/02/20 Furosemide [Lasix] 40 mg PO DAILY 09/15/20 Venlafaxine ER [Effexor ER] 75 mg PO DAILY 09/15/20 Objective - Vital Signs/Intake & Output Reviewed Vital Signs: Yes Vital Signs: Vital Signs x48h Temp Pulse Resp BP Pulse Ox 09/19/20 13:00 36.7 C 80 17 107/59 L 100 09/19/20 09:00 36.6 C 77 16 94/63 99 Intake & Output: Intake & Output 09/16/20 09/17/20 09/18/20 09/19/20 23:59 23:59 23:59 23:59 Intake Total 1045.2 830 1890 480 Output Total 1700 825 625 450 Balance -654.8 5 1265 30 - Objective General Appearance: positive: No acute distress, Alert Eyes Bilateral: positive: Normal inspection Neck: positive: Nml inspection Respiratory: positive: No respiratory distress Cardiovascular: positive: Regular rate & rhythm. negative: Tachycardia Abdomen: positive: Non-tender, No distention, Other (Umbilical hernia noted.). negative: Tenderness Skin: positive: Warm, Dry Extremities: positive: Pedal edema (Trace edema in bilateral lower extremities.) Neurologic/Psychiatric: negative: Disoriented to person, Disoriented to place - Lab Results Fish Bones: 09/19/20 06:43 09/19/20 06:43 Other Labs: Lab Results x24hrs 09/19/20 09/19/20 09/19/20 Range/Units 06:43 06:43 06:43 WBC (4.8-10.8) x10^3/uL RBC (4.70-6.10) 10^6/uL Hgb (14.0-18.0) g/dL Hct (42.0-52.0) % MCV (80.0-94.0) fL MCH (27.0-31.0) pg MCHC (32.0-36.0) g/dL RDW (12.0-15.0) % Plt Count (130-450) 10^3/uL MPV (7.4-11.4) fL Neut # (Auto) (1.5-6.6) 10^3/uL Lymph # (Auto) (1.5-3.5) 10^3/uL [place] # (Auto) (0.0-1.0) 10^3/uL Eos # (Auto) (0.0-0.7) 10^3/uL Baso # (Auto) (0.0-0.1) 10^3/uL Absolute Nucleated RBC x10^3/uL Nucleated RBC % /100WBC PT 13.2 H (9.9-12.6) secs INR 1.2 (0.8-1.2) Sodium 123 L (135-145) mmol/L Potassium 4.2 (3.5-5.0) mmol/L Chloride 94 L (101-111) mmol/L Carbon Dioxide 22 (21-32) mmol/L Anion Gap 7.0 (6-13) BUN 62 H (6-20) mg/dL Creatinine 1.8 H (0.6-1.2) mg/dL Estimated GFR (MDRD) 40 L (>89) Glucose 118 H (70-100) mg/dL Calcium 8.3 L (8.5-10.3) mg/dL Ammonia 127.8 H* (7-35) umol/L 09/19/20 Range/Units 06:43 WBC 5.5 (4.8-10.8) x10^3/uL RBC 2.94 L (4.70-6.10) 10^6/uL Hgb 9.6 L (14.0-18.0) g/dL Hct 26.6 L (42.0-52.0) % MCV 90.5 (80.0-94.0) fL MCH 32.7 H (27.0-31.0) pg MCHC 36.1 H (32.0-36.0) g/dL RDW 13.3 (12.0-15.0) % Plt Count 93 L (130-450) 10^3/uL MPV 9.4 (7.4-11.4) fL Neut # (Auto) 3.3 (1.5-6.6) 10^3/uL Lymph # (Auto) 1.1 L (1.5-3.5) 10^3/uL [place] # (Auto) 0.8 (0.0-1.0) 10^3/uL Eos # (Auto) 0.2 (0.0-0.7) 10^3/uL Baso # (Auto) 0.1 (0.0-0.1) 10^3/uL Absolute Nucleated RBC 0.00 x10^3/uL Nucleated RBC % 0.0 /100WBC PT (9.9-12.6) secs INR (0.8-1.2) Sodium (135-145) mmol/L Potassium (3.5-5.0) mmol/L Chloride (101-111) mmol/L Carbon Dioxide (21-32) mmol/L Anion Gap (6-13) BUN (6-20) mg/dL Creatinine (0.6-1.2) mg/dL Estimated GFR (MDRD) (>89) Glucose (70-100) mg/dL Calcium (8.5-10.3) mg/dL Ammonia (7-35) umol/L ABX Reporting Has patient been on IV antibiotics over the past 48 hours?: No Assessment/Plan - Problem List (1) Hepatic encephalopathy Impression: This is improved after he received lactulose. He has had multiple admissions due to noncompliance. Although his not had a bowel movement today, he did have multiple bowel movements yesterday and he is at his baseline from a neurologic standpoint. We will continue his current dose of lactulose 30 g 4 times daily. If he has no bowel movement today then we will increase the frequency. Continue rifaximin. (2) Hyponatremia Impression: His sodium is decreased today to 123. Although he does have peripheral edema, he does appear dry on exam. We will gently hydrate him with normal saline today and recheck a sodium in the afternoon. He will also be receiving albumin after the paracentesis. His baseline is in the mid 120s which is secondary to his cirrhosis. I would like to see his sodium improved slightly prior to discharge. (3) Acute kidney injury Impression: His renal function is stable with a creatinine of 1.8. His renal function has markedly declined over the past 6 weeks and I have discontinued his home spironolactone and Lasix today. We will gently hydrate him and he will be receiving albumin after his paracentesis. He will need outpatient nephrology follow-up as there likely is a component of hepatorenal syndrome. If his renal function declines further then we can consider midodrine and octreotide. Avoid nephrotoxins and monitor urine output. (4) Ascites due to alcoholic cirrhosis Impression: Paracentesis was performed today by radiology with 6.4 L removed. We will administer albumin as per protocol. (5) Hepatocellular carcinoma Impression: He was scheduled for follow-up with Dixie [facility] this week for consideration of TACE but this will need to be deferred until he follows up given his frequent hospitalizations and declining functional status. (6) Diabetes mellitus, insulin dependent (IDDM), uncontrolled Impression: His blood glucose is controlled on his current insulin regimen. We will continue Lantus and sliding scale as well as carb controlled diet. Last A1c was just less than 10%.
[2020-09-19 16:16] LABS: CALCIUM 8.2 mg/dL (8.5-10.3); CREATININE 1.8 mg/dL (0.6-1.2); POTASSIUM 3.9 mmol/L (3.5-5.0)
[2020-09-19] MEDS: ALBUMIN 25% 12.5 GM/50 ML VIAL IV SCH ×4 (16:39→17:15)
[2020-09-20] MEDS: SODIUM CHLORIDE FLUSH 0.9% 10 ML SYRINGE IVP SCH ×2 (00:25→08:32)
[2020-09-20 06:26] LABS: BASOPHILS # (AUTO) 0.1 10^3/uL (0.0-0.1); BASOPHILS % (AUTO) 1.2 %; EOSINOPHILS # (AUTO) 0.2 10^3/uL (0.0-0.7); EOSINOPHILS % (AUTO) 3.3 %; HCT - HEMATOCRIT 26.3 % (42.0-52.0); HGB - HEMOGLOBIN 9.2 g/dL (14.0-18.0); LYMPHOCYTES % (AUTO) 21.6 %; MEAN CORPUSCULAR HEMOGLOBIN 32.1 pg (27.0-31.0); MEAN CORPUSCULAR VOLUME 91.6 fL (80.0-94.0); MEAN PLATELET VOLUME 9.5 fL (7.4-11.4); MONOCYTES # (AUTO) 0.8 10^3/uL (0.0-1.0); MONOCYTES % (AUTO) 17.3 %; NEUTROPHILS # (AUTO) 2.7 10^3/uL (1.5-6.6); NEUTROPHILS % (AUTO) 56.4 %; PLT - PLATELET COUNT 94 10^3/uL (130-450); RED BLOOD COUNT 2.87 10^6/uL (4.70-6.10); RED CELL DISTRIBUTION WIDTH 13.3 % (12.0-15.0); WHITE BLOOD COUNT 4.8 x10^3/uL (4.8-10.8)
[2020-09-20 06:31] LABS: CALCIUM 8.8 mg/dL (8.5-10.3); CREATININE 1.8 mg/dL (0.6-1.2); POTASSIUM 4.4 mmol/L (3.5-5.0)
[2020-09-20] MEDS: INSULIN ASPART 300 UNIT/3 ML PEN SUBQ SCH ×2 (08:30→11:45)
[2020-09-20] MEDS: VENLAFAXINE ER 75 MG CAPSULE PO SCH (08:32)
[2020-09-20] MEDS: MULTIVITAMIN W/MINERALS TABLET PO SCH (08:32)
[2020-09-20] MEDS: rifAXIMin 550 MG TABLET PO SCH (08:32)
[2020-09-20] MEDS: TAMSULOSIN 0.4 MG CAPSULE PO SCH (08:32)
[2020-09-20] MEDS: buPROPion SR 150 MG TABLET PO SCH (08:32)
[2020-09-20] MEDS: LACTULOSE 10 GM/15 ML BOTTLE PO SCH ×2 (08:35→13:03)
[2020-09-20 11:27] VITALS: BP 105/61
--- NOTE | 2020-09-20 11:57 | Discharge Plan ---
Discharge Plan Problem Reviewed?: Yes Disposition: Home, Self Care Condition: Stable Diet: Diabetic Activity Restrictions: Activity as Tolerated Driving Restrictions: Yes Assistance Devices: Walker Instruction Topics: Lactulose oral solution, Cirrhosis Tx Health Concerns: You were admitted to the hospital again because of elevated ammonia which caused you to be confused. This happened because of your liver cirrhosis. You were treated with lactulose with improvement in your symptoms. It is important that you take the lactulose as prescribed below. Plan of Treatment: Please make sure to take the lactulose every 4 hours. You need to have at least 2-3 bowel movements a day. If you are having more than this then you can decrease the frequency of your lactulose to every 6 hours. If you are not having 2-3 bowel movements a day and you can increase the frequency to every 2-3 hours. It is crucial that you take the lactulose as it without it your ammonia will increase and you will become confused. 30 g of lactulose is equivalent to 45 mL. Care Goals: The goal is to prevent your ammonia from becoming elevated again which can make you confused. Assessment: The patient and family expressed understanding of the treatment plan. Additional Instructions or Follow Up instructions: Please follow-up with your primary care provider in 1 week. Please also continue to follow-up with your cancer and GI doctor at [facility]. No Smoking: If you smoke, Please STOP! Call for help. Follow-up with: Montrell Brady MD [Primary Care Provider] -
--- NOTE | 2020-09-20 12:43 | DISCHARGE SUMMARY ---
"Discharge Summary Admit Date: 09/16/20 Discharge Date: 09/20/20 Discharging Provider: Karan Farooq Primary Care Provider: Montrell Brady Code Status: Attempt Resuscitation Condition at Discharge: Stable Discharge Disposition: 01 Home, Self Care - DIAGNOSES Admission Diagnoses: Hepatic encephalopathy Acute kidney injury Ascites due to alcoholic cirrhosis Hepatocellular carcinoma Medication noncompliance Diabetes mellitus, insulin-dependent Generalized weakness Discharge Diagnoses with Status of Each Condition: Hepatic encephalopathy - resolved. Hyponatremia - stable. Acute kidney injury - stable. Ascites due to alcoholic cirrhosis - stable. Hepatocellular carcinoma - stable. Diabetes mellitus, uncontrolled, insulin-dependent - stable. - HPI History of Present Illness: H&P per Dr. Dumnot: Patient is a 50-year-old male with history of end-stage liver disease with alcoholic cirrhosis and hepatocellular carcinoma who presented to the ED via EMS with encephalopathy. He has recurrent ascites and undergoes routine paracentesis twice a week. He is noncompliant with his lactulose and frequently presents to the emergency department with encephalopathy. He has been admitted about 4 times in the past 3 weeks. He has declined going to a jail and needs senior living care. He was discharged from the hospital 3 days ago. During the previous 2 admissions he returned to the emergency department 2 hours after being discharged from the hospital. He was in the emergency department yesterday with elevated ammonia level and was treated and discharged. He returned this morning. At bedside he is unresponsive. Level was 321.5. It was reported that he had an argument with his mother after returning home yesterday and refused to take his medications. He collapsed to the floor. When medics went to the house to give a lift assist to his mother the brought him to the ED At bedside he is completely unresponsive to tactile or verbal stimuli does unable to provide a reliable history. He had an NG tube placed and 30 g of lactulose administered. However in his encephalopathy hepatic state he pulled out the tube. He is being admitted for further treatment. - CONSULTS | PROCEDURES Consultations: IR Procedures: He had a paracentesis on September 19 with 6.4 L of fluid removed. - HOSPITAL COURSE Hospital Course: He was admitted for hepatic encephalopathy and NG tube was placed to help administer the lactulose as he was quite obtunded. His ammonia level improved from 300 down to the low 100s. He did have nausea and vomiting on hospital day 2 which limited our ability to administer lactulose but ultimately his nausea and vomiting resolved and he was continued on oral lactulose 30 g 4 times daily. His ammonia level decreased each day and his mentation returned to baseline. He was noted to be hyponatremic and so he was gently hydrated as it was felt this was hypovolemic despite his liver cirrhosis. His sodium did improve with hydration. He was due for paracentesis and so he had one on September 19 with 6.4 L of fluid removed. He was administered abdomen after the paracentesis. We did discuss placement for senior living care given his noncompliance and recurrent adm issions. He was agreeable to this but unfortunate this could not be arranged. Social work did work with [facility] but unfortunately an assessment could not be obtained until September 28 and therefore no assisted living facility would accept the patient. Will be followed up on outpatient basis with his case management and the plan will be to get him into assisted living at some point at this month. We did discuss the importance of compliance with his lactulose as this has caused him to have frequent readmissions. We discussed the need to take it every 4 hours and to titrate to 2-3 bowel movements which may require him to increase his frequency to every 3 hours if he is not having these 2-3 bowel movements a day. This was discussed with the patient and his mother who were in agreement. - ALLERGIES Allergies/Adverse Reactions: Allergies Allergy/AdvReac Type Severity Reaction Status Date / Time cantaloupe Allergy Anaphylaxis Verified 09/20/20 20:42 melon Allergy Anaphylaxis Verified 09/20/20 20:42 lisinopril AdvReac Respiratory Verified 09/20/20 20:42 - MEDICATIONS Home Medications: Ambulatory Orders Medication Instructions Recorded Confirmed Albuterol Sulfate [Proair Hfa 1 - 2 puffs INH Q4H PRN 11/13/16 09/16/20 Inhaler] Insulin Glargine,Hum.rec.anlog 65 units SUBQ DAILY PM 11/13/16 09/16/20 [Basaglar Kwikpen U-100] Insulin Regular, Human [Humulin R] 5 - 20 units SUBQ TIDWM 11/13/16 09/16/20 buPROPion HCL [Bupropion HCl Sr] 150 mg PO BID 02/15/20 09/16/20 Multivitamin W/Minerals [Theragran 1 tab PO DAILY #30 tablet 03/29/20 09/16/20 M] Tamsulosin [Flomax] 0.4 mg PO DAILY #30 cap 08/29/20 09/16/20 rifAXIMin [Xifaxan] 550 mg PO BID #60 tablet 09/06/20 09/16/20 Venlafaxine ER [Effexor ER] 75 mg PO DAILY 09/15/20 09/16/20 Lactulose 30 gm PO Q4HR #0 bottle 09/20/20 - PHYSICAL EXAM AT DISCHARGE General Appearance: positive: No acute distress, Alert Eyes Bilateral: positive: Normal inspection, Other (Scleral icterus.) ENT: positive: ENT inspection nml Respiratory: positive: No respiratory distress. negative: Wheezes, Rales Cardiovascular: positive: Regular rate & rhythm, No murmur. negative: Tachy cardia Abdomen: positive: Non-tender, No distention, Other (Umbilical hernia noted.). negative: Tenderness Skin: positive: Warm, Dry Extremities: positive: No pedal edema Neurologic/Psychiatric: negative: Disoriented to person, Disoriented to place - LABS Result Diagrams: 09/20/20 06:07 09/20/20 06:07 - DIAGNOSTIC IMAGING Diagnostic Imaging Results: Final report reviewed - FOLLOW UP Follow Up: He was asked to follow-up with his primary care provider as well as his oncologi st at [facility] given the hepatocellular carcinoma. He was also asked to follow-up with urology given his urinary retention and need for Blunt catheter. - TIME SPENT Time Spent in Discharge (Minutes): 36"
== END 2020-09-20 13:41 | disposition home or self-care (01) | DRG 442 ==
LOC: EDUNIT# → ED 06:57 → MS2 10:05
PROVIDERS: ADMIT Internal Medicine; ATTEND Internal Medicine
PROC: 0W9G3ZZ Drainage of Peritoneal Cavity, Percutaneous Approach (ICD-10-PCS; principal; 2020-09-19)
DX: K72.91 Hepatic failure, unspecified with coma (principal); E87.1 Hypo-osmolality and hyponatremia; N17.9 Acute kidney failure, unspecified; C22.7 Other specified carcinomas of liver; E72.20 Disorder of urea cycle metabolism, unspecified; K70.31 Alcoholic cirrhosis of liver with ascites; E10.69 Type 1 diabetes mellitus with other specified complication; Z79.4 Long term (current) use of insulin; T47.3X6A Underdosing of saline and osmotic laxatives, initial encounter; Z91.128 Patient's intentional underdosing of medication regimen for other reason; Z66 Do not resuscitate; R11.2 Nausea with vomiting, unspecified; E86.1 Hypovolemia; I10 Essential (primary) hypertension; Z87.891 Personal history of nicotine dependence; R53.1 Weakness; R19.7 Diarrhea, unspecified; K42.9 Umbilical hernia without obstruction or gangrene; E10.42 Type 1 diabetes mellitus with diabetic polyneuropathy
CPT/HCPCS: 0202U; 36415; 49083; 70450; 71045; 80048; 80053; 80320; 81003; 82140; 83690; 83735; 85025; 85610; 96365; 96374; 99281; 99283; 99284; 99285; A9270; J1815; J2765; J3411; J8499; P9047; 81001; 87086

== ENCOUNTER 2020-09-20 20:27 | Outpatient (CLI) | payer MEDICAID | END 2020-09-20 20:28 | disposition critical access hospital (66) | LOC: EMS 20:27 | DX: R19.7 Diarrhea, unspecified (principal); R53.1 Weakness | CPT/HCPCS: A0425; A0429 ==

== ENCOUNTER 2020-09-20 20:33 | Emergency (ER) | payer MEDICAID ==
--- NOTE | 2020-09-20 20:53 | ED Physician Documentation ---
PD HPI NVD - Stated complaint Stated Complaint: GEN WEAKNESS/ DIAHRREA - Chief complaint Chief Complaint: General - History obtained from History obtained from: Patient - History of Present Illness Timing - onset: Today Timing - duration: Hours Timing - details: Gradual onset, Still present Associated symptoms: Other (he states 5-6 episodes of diarrhea today. Some nausea as well. Less PO intake.). No: Fever, Abdominal pain Contributing factors: Other (hospitalized for 5 days and just discharged this morning. He was home and he felt generally weak and tired. His family called EMS as he was hard to rouse, similar to when admitted for elevated ammonia level.). No: Sick contact, Bad food, Recent antibiotics Improved by: Laying still Worsened by: No: Palpation Similar symptoms before: Diagnosis (has had similar symptoms with elevated ammonia levels and low sodium. Also with infections in the past.) Recently seen: Emergency Dept, Admitted (admitted 5 days ago for hepatic encephalopathy and electrolytes adnormal. Had fluids, increased lactulose, and did get paracentesis while in hospital. Discharged improved though still some elvated numbers, but at his baseline.) Review of Systems Constitutional: reports: Fatigue. denies: Fever, Chills Nose: denies: Rhinorrhea / runny nose, Congestion Throat: denies: Sore throat Cardiac: denies: Chest pain / pressure Respiratory: denies: Cough GI: reports: Abdominal Swelling, Nausea, Diarrhea. denies: Abdominal Pain, Vomiting, Bloody / black stool : denies: Dysuria, Frequency Musculoskeletal: denies: Neck pain, Back pain Neurologic: reports: Altered mental status (somnolent and slow processing thoughts, per patient.). denies: Headache, Head injury PD PAST MEDICAL HISTORY - Past Medical History Past Medical History: Yes Cardiovascular: Hypertension, High cholesterol Respiratory: Asthma Neuro: Peripheral neuropathy Endocrine/Autoimmune: Type 1 diabetes GI: Cirrhosis : Retention, Indwelling catheter HEENT: Chronic vision loss Psych: Depression, Anxiety Musculoskeletal: Osteoarthritis Derm: Psoriasis, Other - Past Surgical History Past Surgical History: Yes Ortho: Arthroscopic surgery - Present Medications Home Medications: Ambulatory Orders Medication Instructions Recorded Confirmed Albuterol Sulfate [Proair Hfa 1 - 2 puffs INH Q4H PRN 11/13/16 09/16/20 Inhaler] Insulin Glargine,Hum.rec.anlog 65 units SUBQ DAILY PM 11/13/16 09/16/20 [Basaglar Kwikpen U-100] Insulin Regular, Human [Humulin R] 5 - 20 units SUBQ TIDWM 11/13/16 09/16/20 buPROPion HCL [Bupropion HCl Sr] 150 mg PO BID 02/15/20 09/16/20 Multivitamin W/Minerals [Theragran 1 tab PO DAILY #30 tablet 03/29/20 09/16/20 M] Tamsulosin [Flomax] 0.4 mg PO DAILY #30 cap 08/29/20 09/16/20 rifAXIMin [Xifaxan] 550 mg PO BID #60 tablet 09/06/20 09/16/20 Venlafaxine ER [Effexor ER] 75 mg PO DAILY 09/15/20 09/16/20 Lactulose 30 gm PO Q4HR #0 bottle 09/20/20 - Allergies Allergies/Adverse Reactions: Allergies Allergy/AdvReac Type Severity Reaction Status Date / Time cantaloupe Allergy Anaphylaxis Verified 09/20/20 20:42 melon Allergy Anaphylaxis Verified 09/20/20 20:42 lisinopril AdvReac Respiratory Verified 09/20/20 20:42 - Social History Does the pt smoke?: No Smoking Status: Never smoker Does the pt drink ETOH?: No Does the pt have substance abuse?: No - Immunizations Immunizations are current?: Yes - POLST Patient has POLST: No POLST Status: DNR PD ED PE NORMAL - Vitals Vital signs reviewed: Yes (BP slightly low. ) - General General: No acute distress, Well developed/nourished. No: Alert and oriented X 3 (oriented but somnolent. Rouses to verbal and tactile. ) - HEENT HEENT: Pharynx benign - Neck Neck: Supple, no meningeal sign, No adenopathy - Cardiac Cardiac: RRR, No murmur - Respiratory Respiratory: Clear bilaterally - Abdomen Abdomen: Soft, Non tender, No organomegaly, Other (umbilical hernia soft and easily reducible. Bandaid on RLQ area c/w paracentesis yesterday. Some abd fullness but is soft and not tender. ) - Male Male : Deferred - Rectal Rectal: Deferred - Back Back: No CVA TTP - Derm Derm: Warm and dry. No: Normal color (somewhat pale) - Extremities Extremities: No edema, No calf tenderness / cord - Neuro Neuro: No motor deficit, No sensory deficit, Normal speech Eye Opening: To Voice Motor: Obeys Commands Verbal: Oriented GCS Score: 14 Results - Vitals Vitals: Vital Signs - 24 hr 09/20/20 09/20/20 20:40 22:40 Temperature 35.9 C L Heart Rate 83 84 Respiratory 16 12 Rate Blood Pressure 97/56 L 94/64 O2 Saturation 100 100 Oxygen O2 Source Room air - Labs Labs: Laboratory Tests 09/20/20 09/20/20 09/20/20 21:14 21:14 21:14 WBC 5.7 RBC 3.07 L Hgb 10.2 L Hct 28.7 L MCV 93.5 MCH 33.2 H MCHC 35.5 RDW 13.7 Plt Count 91 L MPV 9.5 Neut # (Auto) 3.6 Lymph # (Auto) 0.8 L [place] # (Auto) 1.1 H Eos # (Auto) 0.2 Baso # (Auto) 0.1 Absolute Nucleated RBC 0.00 Nucleated RBC % 0.0 Sodium 128 L Potassium 4.8 Chloride 93 L Carbon Dioxide 24 Anion Gap 11.0 BUN 69 H Creatinine 1.9 H Estimated GFR (MDRD) 37 L Glucose 156 H Calcium 8.9 Magnesium 3.3 H Total Bilirubin 1.5 H AST 53 H ALT 36 Alkaline Phosphatase 98 Ammonia 127.3 H* Total Protein 6.2 L Albumin 3.8 Globulin 2.4 Albumin/Globulin Ratio 1.6 Lipase 114 H Ethyl Alcohol < 5.0 PD MEDICAL DECISION MAKING - ED course Complexity details: reviewed old records, reviewed results (his labs are similar to AM labs today prior to discharge. ), re-evaluated patient (BP improved with some fluids, though did go back down to 90s systolic. He is more alert and interactive though, after fluids IV. ), considered differential, d/w patient Departure - Departure Disposition: 01 Home, Self Care Clinical Impression: General weakness, Somnolence, Hyponatremia, Hyperammonemia Condition: Stable Record reviewed to determine appropriate education?: Yes Follow-Up: Montrell Brady MD [Primary Care Provider] - Comments: Continue with your usual medications. You had received extra lactulose while hospitalized so some loose stool/diarrhea can make sense. Your ammonia and sodium levels are similar to when you are discharged this morning and have not worsened. You are likely a bit dehydrated. Be sure to have adequate fluids but not excess. Continue usual medications. Return if persistently feeling bad over the next few days. Discharge Date/Time: 09/20/20 22:41
[2020-09-20] MEDS ORDERED: ONDANSETRON 4 MG/2 ML VIAL IVP STA (21:05)
[2020-09-20] MEDS ORDERED: SODIUM CHLORIDE 0.9% 1,000 ML IV STA (21:05)
[2020-09-20 21:19] LABS: BASOPHILS # (AUTO) 0.1 10^3/uL (0.0-0.1); EOSINOPHILS # (AUTO) 0.2 10^3/uL (0.0-0.7); EOSINOPHILS % (AUTO) 2.8 %; HCT - HEMATOCRIT 28.7 % (42.0-52.0); HGB - HEMOGLOBIN 10.2 g/dL (14.0-18.0); LYMPHOCYTES # (AUTO) 0.8 10^3/uL (1.5-3.5); MEAN CORPUSCULAR HEMOGLOBIN 33.2 pg (27.0-31.0); MEAN CORPUSCULAR HGB CONC 35.5 g/dL (32.0-36.0); MEAN CORPUSCULAR VOLUME 93.5 fL (80.0-94.0); MEAN PLATELET VOLUME 9.5 fL (7.4-11.4); MONOCYTES # (AUTO) 1.1 10^3/uL (0.0-1.0); MONOCYTES % (AUTO) 18.7 %; NEUTROPHILS # (AUTO) 3.6 10^3/uL (1.5-6.6); PLT - PLATELET COUNT 91 10^3/uL (130-450); RED BLOOD COUNT 3.07 10^6/uL (4.70-6.10); RED CELL DISTRIBUTION WIDTH 13.7 % (12.0-15.0); WHITE BLOOD COUNT 5.7 x10^3/uL (4.8-10.8)
[2020-09-20 21:32] LABS: ALBUMIN 3.8 g/dL (3.2-5.5); ALBUMIN/GLOBULIN RATIO 1.6 (1.0-2.2); ALKALINE PHOSPHATASE 98 IU/L (42-121); ALT ALANINE AMINOTRANSFERASE 36 IU/L (10-60); AST ASPARTATE AMINOTRANSFERASE 53 IU/L (10-42); BILIRUBIN,TOTAL 1.5 mg/dL (0.2-1.0); BUN - BLOOD UREA NITROGEN 69 mg/dL (6-20); CALCIUM 8.9 mg/dL (8.5-10.3); CARBON DIOXIDE - CO2 24 mmol/L (21-32); CHLORIDE 93 mmol/L (101-111); CREATININE 1.9 mg/dL (0.6-1.2); ETOH - ETHANOL < 5.0 mg/dL; GFR - MDRD 37 (>89); GLUCOSE 156 mg/dL (70-100); LIPASE 114 U/L (22-51); MAGNESIUM 3.3 mg/dL (1.7-2.8); POTASSIUM 4.8 mmol/L (3.5-5.0); SODIUM 128 mmol/L (135-145); TOTAL PROTEIN 6.2 g/dL (6.7-8.2)
[2020-09-20 22:41] VITALS: BP 94/64
== END 2020-09-20 22:41 | disposition home or self-care (01) ==
LOC: EDUNIT# → ED 20:33
DX: R53.1 Weakness (principal); R40.0 Somnolence; E87.1 Hypo-osmolality and hyponatremia; E72.20 Disorder of urea cycle metabolism, unspecified; R19.7 Diarrhea, unspecified; R11.0 Nausea; K42.9 Umbilical hernia without obstruction or gangrene; I10 Essential (primary) hypertension; E10.42 Type 1 diabetes mellitus with diabetic polyneuropathy
CPT/HCPCS: 36415; 80053; 80320; 82140; 83690; 83735; 85025; 96374; 99284

== ENCOUNTER 2020-09-21 21:54 | Outpatient (CLI) | payer MEDICAID | END 2020-09-21 21:55 | disposition EMS.NT | LOC: EMS 21:54 | DX: Z03.89 Encounter for observation for other suspected diseases and conditions ruled out (principal) ==

== ENCOUNTER 2020-09-22 08:04 | Outpatient (CLI) | payer MEDICAID ==
[2020-09-22 08:41] LABS: BASOPHILS # (AUTO) 0.1 10^3/uL (0.0-0.1); BASOPHILS % (AUTO) 1.3 %; EOSINOPHILS # (AUTO) 0.2 10^3/uL (0.0-0.7); EOSINOPHILS % (AUTO) 2.9 %; HCT - HEMATOCRIT 27.8 % (42.0-52.0); HGB - HEMOGLOBIN 9.7 g/dL (14.0-18.0); LYMPHOCYTES # (AUTO) 1.1 10^3/uL (1.5-3.5); LYMPHOCYTES % (AUTO) 20.2 %; MEAN CORPUSCULAR HEMOGLOBIN 31.9 pg (27.0-31.0); MEAN CORPUSCULAR HGB CONC 34.9 g/dL (32.0-36.0); MEAN CORPUSCULAR VOLUME 91.4 fL (80.0-94.0); MEAN PLATELET VOLUME 9.6 fL (7.4-11.4); MONOCYTES # (AUTO) 0.8 10^3/uL (0.0-1.0); MONOCYTES % (AUTO) 15.4 %; NEUTROPHILS # (AUTO) 3.1 10^3/uL (1.5-6.6); NEUTROPHILS % (AUTO) 59.8 %; PLT - PLATELET COUNT 112 10^3/uL (130-450); RED BLOOD COUNT 3.04 10^6/uL (4.70-6.10); RED CELL DISTRIBUTION WIDTH 13.8 % (12.0-15.0); WHITE BLOOD COUNT 5.3 x10^3/uL (4.8-10.8)
[2020-09-22 08:48] LABS: INR 1.2 (0.8-1.2); PT - PROTHROMBIN TIME 13.1 secs (9.9-12.6)
[2020-09-22 08:52] LABS: CALCIUM 8.9 mg/dL (8.5-10.3); CREATININE 1.9 mg/dL (0.6-1.2); POTASSIUM 4.3 mmol/L (3.5-5.0)
[2020-09-22 08:55] LABS: PARTIAL THROMBOPLASTIN TIME 28.9 secs (24.9-33.3)
--- NOTE | 2020-09-22 11:30 | Ultrasound Report ---
PROCEDURE: Abdominal Paracentesis INDICATIONS: ALCOHOLIC CIRRHOSIS OF LIVER W/ASCITES TECHNIQUE: The indications, alternatives, benefits, risks, and complications of the procedure were explained to the patient. Written informed consent was obtained and placed in the chart. The abdomen and pelvis were examined sonographically, and an appropriate site was chosen for paracentesis. The skin was pre pared and draped in the usual sterile fashion, and 1% lidocaine was infiltrated from the skin down th rough the peritoneal surface. A 19-gauge catheter-covered needle was then introduced into the perito valerie space, the catheter was advanced and the needle was withdrawn, and thereafter peritoneal fluid w as withdrawn. The catheter was then removed and a dressing was applied. The fluid was discarded if the clinician did not order diagnostic testing of the fluid. COMPARISON: Multiple prior studies, the most recent from 09/19/2020 and 09/15/2020 FINDINGS: Access site: Right lower quadrant Needle: One-Step centesis catheter with introducer needle. Fluid volume and description: 5.8 L blood-tinged cloudy ascites fluid Fluid sent for diagnostic testing: Not requested Medications: 1% lidocaine for local anaesthesia. Complications: None. IMPRESSION: Successful ultrasound-guided paracentesis. Reviewed by: Shantell Robertson MD on 09/22/2020 11:29 AM PDT Approved by: Shantell Robertson MD on 09/22/2020 11:29 AM PDT Station ID: [id number]
== END 2020-09-22 08:05 | disposition home or self-care (01) ==
LOC: DI 08:04
PROVIDERS: ATTEND Internal Medicine
DX: K70.31 Alcoholic cirrhosis of liver with ascites (principal)
CPT/HCPCS: 36415; 49083; 80048; 85025; 85610; 85730

== ENCOUNTER 2020-09-23 07:03 | Outpatient (CLI) | payer MEDICAID | END 2020-09-23 07:04 | disposition critical access hospital (66) | LOC: EMS 07:03 | DX: R31.0 Gross hematuria (principal) | CPT/HCPCS: A0425; A0429; A0999 ==

== ENCOUNTER 2020-09-23 07:10 | Emergency (ER) | payer MEDICAID ==
--- NOTE | 2020-09-23 07:17 | ED Physician Documentation ---
PD HPI MALE - Stated complaint Stated Complaint: BLOOD IN URINE - History obtained from History obtained from: Patient, Family - History of Present Illness Timing - onset: Today Timing - duration: Hours Timing - details: Abrupt onset, Now resolved Associated symptoms: Hematuria (noted blood in the nagy this morning. No clots. Has been draining well.) PD HPI MALE CONTRIB FACTORS: Indwelling catheter Similar symptoms before: Has not had sx before Recently seen: Clinic (paracentesis outpatient in DI department yesterday without complications. Seen in ER earlier in the week. Hospitalized with discharge 09/16 for hepatic encephalopathy.) Review of Systems Constitutional: denies: Fever, Chills Musculoskeletal: denies: Back pain PD PAST MEDICAL HISTORY - Past Medical History Cardiovascular: Hypertension, High cholesterol Respiratory: Asthma Neuro: Peripheral neuropathy Endocrine/Autoimmune: Type 1 diabetes GI: Cirrhosis : Retention, Indwelling catheter HEENT: Chronic vision loss Psych: Depression, Anxiety Musculoskeletal: Osteoarthritis Derm: Psoriasis, Other - Past Surgical History Past Surgical History: Yes Ortho: Arthroscopic surgery - Present Medications Home Medications: Ambulatory Orders Medication Instructions Recorded Confirmed Albuterol Sulfate [Proair Hfa 1 - 2 puffs INH Q4H PRN 11/13/16 09/16/20 Inhaler] Insulin Glargine,Hum.rec.anlog 65 units SUBQ DAILY PM 11/13/16 09/16/20 [Basaglar Kwikpen U-100] Insulin Regular, Human [Humulin R] 5 - 20 units SUBQ TIDWM 11/13/16 09/16/20 buPROPion HCL [Bupropion HCl Sr] 150 mg PO BID 02/15/20 09/16/20 Multivitamin W/Minerals [Theragran 1 tab PO DAILY #30 tablet 03/29/20 09/16/20 M] Tamsulosin [Flomax] 0.4 mg PO DAILY #30 cap 08/29/20 09/16/20 rifAXIMin [Xifaxan] 550 mg PO BID #60 tablet 09/06/20 09/16/20 Venlafaxine ER [Effexor ER] 75 mg PO DAILY 09/15/20 09/16/20 Lactulose 30 gm PO Q4HR #0 bottle 09/20/20 - Allergies Allergies/Adverse Reactions: Allergies Allergy/AdvReac Type Severity Reaction Status Date / Time cantaloupe Allergy Anaphylaxis Verified 09/23/20 07:26 melon Allergy Anaphylaxis Verified 09/23/20 07:26 lisinopril AdvReac Respiratory Verified 09/23/20 07:26 - Social History Does the pt smoke?: No Smoking Status: Never smoker Does the pt drink ETOH?: No Does the pt have substance abuse?: No - Immunizations Immunizations are current?: Yes - POLST Patient has POLST: No POLST Status: DNR PD ED PE NORMAL - Vitals Vital signs reviewed: Yes - General General: Alert and oriented X 3, Well developed/nourished - Cardiac Cardiac: RRR, No murmur - Respiratory Respiratory: Clear bilaterally - Abdomen Abdomen: Normal bowel sounds, Soft, Non tender, Non distended, Other (bandaid noted RLQ abd prior recent paracentesis. No leakage. 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 No noted skin lesions nor redness/discharge at meatus. Nagy draining urine with some red tinge and also brown color c/w bilirubin. ) - Back Back: No CVA TTP - Derm Derm: Normal color, Warm and dry Results - Vitals Vitals: Vital Signs - 24 hr 09/23/20 09/23/20 07:24 08:32 Temperature 36.4 C L Heart Rate 80 77 Respiratory 16 Rate Blood Pressure 112/64 102/66 O2 Saturation 100 Oxygen O2 Source Room air - Labs Labs: Laboratory Tests 09/23/20 09/23/20 09/23/20 07:47 07:47 07:50 WBC 5.3 RBC 2.87 L Hgb 9.5 L Hct 25.9 L MCV 90.2 MCH 33.1 H MCHC 36.7 H RDW 13.7 Plt Count 101 L MPV 9.5 Neut # (Auto) 3.2 Lymph # (Auto) 0.9 L [place] # (Auto) 1.0 Eos # (Auto) 0.1 Baso # (Auto) 0.0 Absolute Nucleated RBC 0.00 Nucleated RBC % 0.0 Sodium 128 L Potassium 4.8 Chloride 95 L Carbon Dioxide 22 Anion Gap 11.0 BUN 78 H Creatinine 1.9 H Estimated GFR (MDRD) 37 L Glucose 77 Calcium 8.8 Magnesium 3.3 H Total Bilirubin 2.0 H AST 52 H ALT 34 Alkaline Phosphatase 98 Total Protein 5.8 L Albumin 3.6 Globulin 2.2 Albumin/Globulin Ratio 1.6 Lipase 135 H Urine Color DARK YELLOW Urine Clarity CLEAR Urine pH 5.5 Ur Specific [place] 1.020 Urine Protein TRACE Urine Glucose (UA) NEGATIVE Urine Ketones NEGATIVE Urine Occult Blood LARGE H Urine Nitrite NEGATIVE Urine Bilirubin NEGATIVE Urine Urobilinogen 2 H Ur Leukocyte Esterase NEGATIVE Urine RBC TNTC H Urine WBC 0-3 Ur Squamous Epith Cells NONE SEEN Urine Bacteria Few Ur Microscopic Review INDICATED Urine Culture Comments NOT INDICATED PD MEDICAL DECISION MAKING - ED course Complexity details: reviewed results (His labs are at baseline with anemia, low sodium, elevated creatinine and bilirubin, but all at recent levels and trends. UA not notable for infection. ), considered differential, d/w patient Departure - Departure Disposition: Home, Self Care Clinical Impression: Indwelling Nagy catheter present Hematuria Qualifiers: Hematuria type: gross Qualified Code(s): R31.0 - Gross hematuria Condition: Stable Record reviewed to determine appropriate education?: Yes Instructions: ED Hematuria Follow-Up: Montrell Brady MD [Primary Care Provider] - Comments: There is some blood in your urine but no signs of infection. I presume it is an irritation in the bladder related to the Nagy. Typically this will be short- term do not improve. Your blood tests are at the baseline degree of abnormality without any acute changes noted. Consistent to our your anemia, at renal insufficiency, low sodium, elevated liver enzymes. None of these are off your baseline at this point. Follow-up with your primary care if consistent problems with blood in the urine or any Nagy not draining. Discharge Date/Time: 09/23/20 08:53
[2020-09-23 08:00] LABS: BILIRUBIN,URINE NEGATIVE (NEGATIVE); GLUCOSE, URINE (UA) NEGATIVE (NEGATIVE); KETONES,URINE (UA) NEGATIVE (NEGATIVE); LEUKOCYTE ESTERASE, URINE NEGATIVE (NEGATIVE); NITRITE,URINE NEGATIVE (NEGATIVE); OCCULT BLOOD,URINE LARGE (NEGATIVE); PH,URINE 5.5 PH (5.0-7.5); PROTEIN,URINE TRACE mg/dL (NEGATIVE); UROBILINOGEN,URINE 2 E.U./dL (NORMAL)
[2020-09-23 08:02] LABS: CLARITY,URINE CLEAR (CLEAR)
[2020-09-23 08:03] LABS: BASOPHILS % (AUTO) 0.8 %; EOSINOPHILS # (AUTO) 0.1 10^3/uL (0.0-0.7); EOSINOPHILS % (AUTO) 2.4 %; HCT - HEMATOCRIT 25.9 % (42.0-52.0); HGB - HEMOGLOBIN 9.5 g/dL (14.0-18.0); LYMPHOCYTES # (AUTO) 0.9 10^3/uL (1.5-3.5); LYMPHOCYTES % (AUTO) 17.7 %; MEAN CORPUSCULAR HEMOGLOBIN 33.1 pg (27.0-31.0); MEAN CORPUSCULAR HGB CONC 36.7 g/dL (32.0-36.0); MEAN CORPUSCULAR VOLUME 90.2 fL (80.0-94.0); MEAN PLATELET VOLUME 9.5 fL (7.4-11.4); MONOCYTES % (AUTO) 18.6 %; NEUTROPHILS # (AUTO) 3.2 10^3/uL (1.5-6.6); NEUTROPHILS % (AUTO) 60.1 %; PLT - PLATELET COUNT 101 10^3/uL (130-450); RED BLOOD COUNT 2.87 10^6/uL (4.70-6.10); RED CELL DISTRIBUTION WIDTH 13.7 % (12.0-15.0); WHITE BLOOD COUNT 5.3 x10^3/uL (4.8-10.8)
[2020-09-23 08:11] LABS: BACTERIA,URINE Few /HPF (None Seen); RBC,URINE TNTC /HPF (0-5); SQUAMOUS EPITHELIAL CELL,UR NONE SEEN (<= Few); WBC,URINE 0-3 /HPF (0-3)
[2020-09-23 08:15] LABS: ALBUMIN 3.6 g/dL (3.2-5.5); ALBUMIN/GLOBULIN RATIO 1.6 (1.0-2.2); CALCIUM 8.8 mg/dL (8.5-10.3); CREATININE 1.9 mg/dL (0.6-1.2); MAGNESIUM 3.3 mg/dL (1.7-2.8); POTASSIUM 4.8 mmol/L (3.5-5.0); TOTAL PROTEIN 5.8 g/dL (6.7-8.2)
[2020-09-23 08:32] VITALS: BP 102/66
== END 2020-09-23 08:53 | disposition home or self-care (01) ==
LOC: EDUNIT# → ED 07:10
DX: R31.0 Gross hematuria (principal); D64.9 Anemia, unspecified; E87.1 Hypo-osmolality and hyponatremia; K74.60 Unspecified cirrhosis of liver; I10 Essential (primary) hypertension; E10.42 Type 1 diabetes mellitus with diabetic polyneuropathy; Z66 Do not resuscitate
CPT/HCPCS: 36415; 80053; 81001; 81003; 83690; 83735; 85025; 87086; 99282; 99283

== ENCOUNTER 2020-09-24 05:43 | Outpatient (CLI) | payer MEDICAID | END 2020-09-24 05:44 | disposition critical access hospital (66) | LOC: EMS 05:43 | DX: R11.0 Nausea (principal); R53.83 Other fatigue | CPT/HCPCS: A0425; A0429; A0999 ==

== ENCOUNTER 2020-09-24 05:49 | Emergency (ER) | payer MEDICAID ==
[2020-09-24 06:32] LABS: BASOPHILS # (AUTO) 0.1 10^3/uL (0.0-0.1); BASOPHILS % (AUTO) 1.5 %; EOSINOPHILS # (AUTO) 0.1 10^3/uL (0.0-0.7); EOSINOPHILS % (AUTO) 2.1 %; HCT - HEMATOCRIT 27.6 % (42.0-52.0); HGB - HEMOGLOBIN 9.9 g/dL (14.0-18.0); LYMPHOCYTES # (AUTO) 1.1 10^3/uL (1.5-3.5); LYMPHOCYTES % (AUTO) 23.3 %; MEAN CORPUSCULAR HEMOGLOBIN 32.6 pg (27.0-31.0); MEAN CORPUSCULAR HGB CONC 35.9 g/dL (32.0-36.0); MEAN CORPUSCULAR VOLUME 90.8 fL (80.0-94.0); MEAN PLATELET VOLUME 9.1 fL (7.4-11.4); MONOCYTES # (AUTO) 0.9 10^3/uL (0.0-1.0); MONOCYTES % (AUTO) 18.4 %; NEUTROPHILS # (AUTO) 2.6 10^3/uL (1.5-6.6); NEUTROPHILS % (AUTO) 54.3 %; PLT - PLATELET COUNT 111 10^3/uL (130-450); RED BLOOD COUNT 3.04 10^6/uL (4.70-6.10); WHITE BLOOD COUNT 4.8 x10^3/uL (4.8-10.8)
[2020-09-24 06:38] LABS: INR 1.2 (0.8-1.2); PT - PROTHROMBIN TIME 12.8 secs (9.9-12.6)
--- NOTE | 2020-09-24 06:40 | ED Physician Documentation ---
History of Present Illness - Stated complaint Stated Complaint: N/V - Chief complaint Chief Complaint: Abd Pain - History obtained from History obtained from: Patient, EMS - History of Present Illness Timing: Today Pain level max: 0 Pain level now: 0 - Additonal information Additional information: 50-year-old male with end-stage liver disease presents to the emergency department after having emesis x1 and decreased responsiveness this morning per his mother. Patient has been seen here several times for same. He is reportedly noncompliant with his lactulose at home. He does have recurrent hepatic encephalopathy. . Patient is drowsy and gives a very minimal history today. Review of Systems Ten Systems: 10 systems reviewed and negative Constitutional: denies: Fever, Chills Respiratory: denies: Cough GI: reports: Nausea, Vomiting Skin: denies: Rash Musculoskeletal: denies: Neck pain, Back pain Neurologic: denies: Headache PD PAST MEDICAL HISTORY - Past Medical History Past Medical History: Yes Cardiovascular: Hypertension, High cholesterol Respiratory: Asthma Neuro: Peripheral neuropathy Endocrine/Autoimmune: Type 1 diabetes GI: Cirrhosis : Retention, Indwelling catheter HEENT: Chronic vision loss Psych: Depression, Anxiety Musculoskeletal: Osteoarthritis Derm: Psoriasis, Other - Past Surgical History Past Surgical History: Yes Ortho: Arthroscopic surgery - Present Medications Home Medications: Ambulatory Orders Medication Instructions Recorded Confirmed Albuterol Sulfate [Proair Hfa 1 - 2 puffs INH Q4H PRN 11/13/16 09/16/20 Inhaler] Insulin Glargine,Hum.rec.anlog 65 units SUBQ DAILY PM 11/13/16 09/16/20 [Basaglar Kwikpen U-100] Insulin Regular, Human [Humulin R] 5 - 20 units SUBQ TIDWM 11/13/16 09/16/20 buPROPion HCL [Bupropion HCl Sr] 150 mg PO BID 02/15/20 09/16/20 Multivitamin W/Minerals [Theragran 1 tab PO DAILY #30 tablet 03/29/20 09/16/20 M] Tamsulosin [Flomax] 0.4 mg PO DAILY #30 cap 08/29/20 09/16/20 rifAXIMin [Xifaxan] 550 mg PO BID #60 tablet 09/06/20 09/16/20 Venlafaxine ER [Effexor ER] 75 mg PO DAILY 09/15/20 09/16/20 Lactulose 30 gm PO Q4HR #0 bottle 09/20/20 - Allergies Allergies/Adverse Reactions: Allergies Allergy/AdvReac Type Severity Reaction Status Date / Time siaupe Allergy Anaphylaxis Verified 09/24/20 05:54 melon Allergy Anaphylaxis Verified 09/24/20 05:54 lisinopril AdvReac Respiratory Verified 09/24/20 05:54 - Social History Does the pt smoke?: No Smoking Status: Never smoker Does the pt drink ETOH?: No Does the pt have substance abuse?: No - Immunizations Immunizations are current?: Yes - POLST Patient has POLST: No POLST Status: DNR PD ED PE NORMAL - Vitals Vital signs reviewed: Yes - General General: No acute distress, Other (drowsy but arousable. oriented to person only) - HEENT HEENT: Atraumatic, PERRL, Moist mucous membranes - Neck Neck: Supple, no meningeal sign - Cardiac Cardiac: RRR, Strong equal pulses - Respiratory Respiratory: No respiratory distress, Clear bilaterally - Abdomen Abdomen: Soft, Non tender, Non distended - Derm Derm: Warm and dry - Extremities Extremities: No edema, No calf tenderness / cord - Neuro Neuro: Alert and oriented X 3 - Psych Psych: Normal mood, Normal affect Results - Vitals Vitals: Vital Signs - 24 hr 09/24/20 09/24/20 09/24/20 05:54 05:58 09:24 Temperature 36.7 C 36.7 C Heart Rate 90 90 95 Respiratory 16 16 22 Rate Blood Pressure 105/72 105/72 106/67 O2 Saturation 100 100 100 Oxygen O2 Source Room air - Labs Labs: Laboratory Tests 09/24/20 09/24/20 09/24/20 06:27 06:27 06:27 WBC 4.8 RBC 3.04 L Hgb 9.9 L Hct 27.6 L MCV 90.8 MCH 32.6 H MCHC 35.9 RDW 14.0 Plt Count 111 L MPV 9.1 Neut # (Auto) 2.6 Lymph # (Auto) 1.1 L [place] # (Auto) 0.9 Eos # (Auto) 0.1 Baso # (Auto) 0.1 Absolute Nucleated RBC 0.00 Nucleated RBC % 0.0 PT 12.8 H INR 1.2 APTT 31.9 Sodium 128 L Potassium 5.1 H Chloride 94 L Carbon Dioxide 24 Anion Gap 10.0 BUN 80 H* Creatinine 2.0 H Estimated GFR (MDRD) 35 L Glucose 93 Calcium 9.0 Total Bilirubin 2.1 H AST 53 H ALT 35 Alkaline Phosphatase 101 Ammonia Total Protein 6.0 L Albumin 3.6 Globulin 2.4 Albumin/Globulin Ratio 1.5 Lipase 127 H Urine Color Urine Clarity Urine pH Ur Specific [place] Urine Protein Urine Glucose (UA) Urine Ketones Urine Occult Blood Urine Nitrite Urine Bilirubin Urine Urobilinogen Ur Leukocyte Esterase Urine RBC Urine WBC Ur Squamous Epith Cells Urine Bacteria Ur Microscopic Review Urine Culture Comments 09/24/20 09/24/20 06:27 06:38 WBC RBC Hgb Hct MCV MCH MCHC RDW Plt Count MPV Neut # (Auto) Lymph # (Auto) [place] # (Auto) Eos # (Auto) Baso # (Auto) Absolute Nucleated RBC Nucleated RBC % PT INR APTT Sodium Potassium Chloride Carbon Dioxide Anion Gap BUN Creatinine Estimated GFR (MDRD) Glucose Calcium Total Bilirubin AST ALT Alkaline Phosphatase Ammonia 130.3 H* Total Protein Albumin Globulin Albumin/Globulin Ratio Lipase Urine Color YELLOW Urine Clarity CLEAR Urine pH 5.5 Ur Specific [place] 1.020 Urine Protein NEGATIVE Urine Glucose (UA) NEGATIVE Urine Ketones NEGATIVE Urine Occult Blood MODERATE H Urine Nitrite NEGATIVE Urine Bilirubin NEGATIVE Urine Urobilinogen 4 H Ur Leukocyte Esterase NEGATIVE Urine RBC 11-25 H Urine WBC 4-5 Ur Squamous Epith Cells NONE SEEN Urine Bacteria Rare Ur Microscopic Review INDICATED Urine Culture Comments NOT INDICATED PD MEDICAL DECISION MAKING - ED course Complexity details: reviewed old records, reviewed results, re-evaluated patient, considered differential, d/w patient, d/w intelligence consultant ED course: Patient was given IV fluids and lactulose in the emergency department. He did awaken and became oriented to person, place and time. He was slow to respond to certain questions, this appears to be baseline for the patient after reviewing his chart. No indication for acute hospitalization at this time. Patient counseled regarding signs and symptoms for which I believe and urgent re- evaluation would be necessary. Patient with good understanding of and agreement to plan and is comfortable going home at this time This document was made in part using voice recognition software. While efforts are made to proofread this document, sound alike and grammatical errors may occur. Social work spoke with the patient and his mother. Discussed assisted living and [id number] payment. They declined this. Departure - Departure Disposition: Home, Self Care Clinical Impression: End stage liver disease, Somnolence, Hyperammonemia Condition: Good Instructions: ED Cirrhosis Liver Follow-Up: Montrell Brady MD [Primary Care Provider] - Within 3 Days Comments: Follow-up with your doctor for further care. Continue your lactulose at home. Your ammonia level is stable from your prior visits. Discharge Date/Time: 09/24/20 10:38
[2020-09-24 06:45] LABS: PARTIAL THROMBOPLASTIN TIME 31.9 secs (24.9-33.3)
[2020-09-24 06:45] LABS: BILIRUBIN,URINE NEGATIVE (NEGATIVE); GLUCOSE, URINE (UA) NEGATIVE (NEGATIVE); KETONES,URINE (UA) NEGATIVE (NEGATIVE); LEUKOCYTE ESTERASE, URINE NEGATIVE (NEGATIVE); NITRITE,URINE NEGATIVE (NEGATIVE); OCCULT BLOOD,URINE MODERATE (NEGATIVE); PH,URINE 5.5 PH (5.0-7.5); PROTEIN,URINE NEGATIVE (NEGATIVE); UROBILINOGEN,URINE 4 E.U./dL (NORMAL)
[2020-09-24 06:46] LABS: CLARITY,URINE CLEAR (CLEAR)
[2020-09-24 06:47] LABS: ALBUMIN 3.6 g/dL (3.2-5.5); ALBUMIN/GLOBULIN RATIO 1.5 (1.0-2.2); BILIRUBIN,TOTAL 2.1 mg/dL (0.2-1.0); POTASSIUM 5.1 mmol/L (3.5-5.0)
[2020-09-24] MEDS ORDERED: SODIUM CHLORIDE 0.9% 1,000 ML IV STA (06:53)
[2020-09-24 07:11] LABS: BACTERIA,URINE Rare /HPF (None Seen); SQUAMOUS EPITHELIAL CELL,UR NONE SEEN (<= Few)
[2020-09-24] MEDS ORDERED: LACTULOSE 10 GM /15 ML UDC PO STA (07:20)
[2020-09-24 09:25] VITALS: BP 106/67
== END 2020-09-24 10:38 | disposition home or self-care (01) ==
LOC: EDUNIT# → ED 05:49
DX: K72.90 Hepatic failure, unspecified without coma (principal); E72.20 Disorder of urea cycle metabolism, unspecified; Z91.14 Patient's other noncompliance with medication regimen; I10 Essential (primary) hypertension; E10.42 Type 1 diabetes mellitus with diabetic polyneuropathy; Z66 Do not resuscitate
CPT/HCPCS: 36415; 80053; 81001; 82140; 83690; 85025; 85610; 85730; 96360; 96361; 99283; 99284; A9270; 81003; 87086

== ENCOUNTER 2020-09-25 18:05 | Outpatient (CLI) | payer MEDICAID | END 2020-09-25 18:06 | disposition critical access hospital (66) | LOC: EMS 18:05 | DX: Z74.2 Need for assistance at home and no other household member able to render care (principal) | CPT/HCPCS: A0425; A0429; A0999 ==

== ENCOUNTER 2020-09-25 18:09 | Emergency (ER) | payer MEDICAID ==
[2020-09-25] MEDS ORDERED: SODIUM CHLORIDE 0.9% 1,000 ML IV STA (18:21)
[2020-09-25] MEDS ORDERED: LACTULOSE 10 GM /15 ML UDC PO STA (18:24)
--- NOTE | 2020-09-25 18:35 | ED Physician Documentation ---
History of Present Illness - Stated complaint Stated Complaint: FTT - Chief complaint Chief Complaint: General - History obtained from History obtained from: Patient, EMS - History of Present Illness Timing: Chronic Pain level max: 0 Pain level now: 0 - Additonal information Additional information: Patient is a well-known male with a history of end-stage liver disease. Chronic elevated ammonia. He has been here every day for the past 3 days. Social work has been consulted. His family does not want to pay for a group home for him. He has an in-home consult for long-term placement in 2 days. His mother has called the ambulance 4 times today for lift assist. EMS states that they do not feel he is safe at home and so brought him here. The patient has no complaints. Review of Systems Ten Systems: 10 systems reviewed and negative Constitutional: denies: Fever, Chills Ears: denies: Ear pain Nose: denies: Rhinorrhea / runny nose, Congestion Cardiac: denies: Chest pain / pressure Respiratory: denies: Dyspnea, Cough, Wheezing GI: denies: Abdominal Pain, Nausea, Vomiting, Diarrhea : denies: Dysuria Skin: denies: Rash Musculoskeletal: denies: Neck pain, Back pain Neurologic: reports: Generalized weakness. denies: Headache PD PAST MEDICAL HISTORY - Past Medical History Past Medical History: Yes Cardiovascular: Hypertension, High cholesterol Respiratory: Asthma Neuro: Peripheral neuropathy Endocrine/Autoimmune: Type 1 diabetes GI: Cirrhosis : Retention, Indwelling catheter HEENT: Chronic vision loss Psych: Depression, Anxiety Musculoskeletal: Osteoarthritis Derm: Psoriasis, Other - Past Surgical History Past Surgical History: Yes Ortho: Arthroscopic surgery - Present Medications Home Medications: Ambulatory Orders Medication Instructions Recorded Confirmed Albuterol Sulfate [Proair Hfa 1 - 2 puffs INH Q4H PRN 11/13/16 09/16/20 Inhaler] Insulin Glargine,Hum.rec.anlog 65 units SUBQ DAILY PM 11/13/16 09/16/20 [Basaglar Kwikpen U-100] Insulin Regular, Human [Humulin R] 5 - 20 units SUBQ TIDWM 11/13/16 09/16/20 buPROPion HCL [Bupropion HCl Sr] 150 mg PO BID 02/15/20 09/16/20 Multivitamin W/Minerals [Theragran 1 tab PO DAILY #30 tablet 03/29/20 09/16/20 M] Tamsulosin [Flomax] 0.4 mg PO DAILY #30 cap 08/29/20 09/16/20 rifAXIMin [Xifaxan] 550 mg PO BID #60 tablet 09/06/20 09/16/20 Venlafaxine ER [Effexor ER] 75 mg PO DAILY 09/15/20 09/16/20 Lactulose 30 gm PO Q4HR #0 bottle 09/20/20 - Allergies Allergies/Adverse Reactions: Allergies Allergy/AdvReac Type Severity Reaction Status Date / Time cantaloupe Allergy Anaphylaxis Verified 09/25/20 18:20 melon Allergy Anaphylaxis Verified 09/25/20 18:20 lisinopril AdvReac Respiratory Verified 09/25/20 18:20 - Social History Does the pt smoke?: No Smoking Status: Never smoker Does the pt drink ETOH?: No Does the pt have substance abuse?: No - Immunizations Immunizations are current?: Yes - POLST Patient has POLST: No POLST Status: DNR PD ED PE NORMAL - Vitals Vital signs reviewed: Yes - General General: No acute distress, Other (drowsy but arousable. no change from baseline) - HEENT HEENT: Moist mucous membranes - Neck Neck: Supple, no meningeal sign - Cardiac Cardiac: RRR, Strong equal pulses - Respiratory Respiratory: No respiratory distress, Clear bilaterally - Abdomen Abdomen: Soft, Non tender, Non distended - Derm Derm: Warm and dry - Extremities Extremities: No calf tenderness / cord - Neuro Neuro: No motor deficit, No sensory deficit - Psych Psych: Normal mood, Normal affect Results - Vitals Vitals: Vital Signs - 24 hr 09/25/20 18:20 Temperature 36.9 C Heart Rate 99 Respiratory 18 Rate Blood Pressure 113/79 O2 Saturation 100 Oxygen O2 Source Room air - Labs Labs: Laboratory Tests 09/25/20 09/25/20 09/25/20 18:20 18:20 18:20 WBC 4.4 L RBC 3.02 L Hgb 10.0 L Hct 27.8 L MCV 92.1 MCH 33.1 H MCHC 36.0 RDW 14.2 Plt Count 109 L MPV 9.4 Neut # (Auto) 2.3 Lymph # (Auto) 1.1 L [place] # (Auto) 0.9 Eos # (Auto) 0.1 Baso # (Auto) 0.1 Absolute Nucleated RBC 0.00 Nucleated RBC % 0.0 Sodium 125 L Potassium 4.9 Chloride 95 L Carbon Dioxide 23 Anion Gap 7.0 BUN 77 H Creatinine 1.9 H Estimated GFR (MDRD) 37 L Glucose 160 H Calcium 8.5 Total Bilirubin 2.3 H AST 51 H ALT 33 Alkaline Phosphatase 91 Ammonia 166.5 H* Total Protein 5.8 L Albumin 3.5 Globulin 2.3 Albumin/Globulin Ratio 1.5 Lipase 123 H PD MEDICAL DECISION MAKING - ED course Complexity details: reviewed results, re-evaluated patient, considered differential, d/w patient, d/w information resource consultant ED course: 50-year-old male with chronic hepatic encephalopathy and end-stage liver disease. He is unable to be cared for safely at home by his mother. EMS has been called 4-5 times a day for the past several days he has been seen in the emergency department for each of the past 3 days. Discussed the case with the hospitalist, Dr. Cotton, she recommends consulting social work and having a care management conference about the patient to determine the best course of management. Patient will be signed out to the [facility] emergency department physician awaiting this. This document was made in part using voice recognition software. While efforts are made to proofread this document, sound alike and grammatical errors may occur. Departure - Departure Clinical Impression: Ascites due to alcoholic cirrhosis, Hyperammonemia, Hepatocellular carcinoma, Alcoholic liver failure, End stage liver disease Condition: Stable
[2020-09-25 18:41] LABS: BASOPHILS # (AUTO) 0.1 10^3/uL (0.0-0.1); BASOPHILS % (AUTO) 1.4 %; EOSINOPHILS # (AUTO) 0.1 10^3/uL (0.0-0.7); EOSINOPHILS % (AUTO) 1.4 %; HCT - HEMATOCRIT 27.8 % (42.0-52.0); LYMPHOCYTES # (AUTO) 1.1 10^3/uL (1.5-3.5); LYMPHOCYTES % (AUTO) 23.8 %; MEAN CORPUSCULAR HEMOGLOBIN 33.1 pg (27.0-31.0); MEAN CORPUSCULAR VOLUME 92.1 fL (80.0-94.0); MEAN PLATELET VOLUME 9.4 fL (7.4-11.4); MONOCYTES # (AUTO) 0.9 10^3/uL (0.0-1.0); MONOCYTES % (AUTO) 20.6 %; NEUTROPHILS # (AUTO) 2.3 10^3/uL (1.5-6.6); NEUTROPHILS % (AUTO) 52.3 %; PLT - PLATELET COUNT 109 10^3/uL (130-450); RED BLOOD COUNT 3.02 10^6/uL (4.70-6.10); RED CELL DISTRIBUTION WIDTH 14.2 % (12.0-15.0); WHITE BLOOD COUNT 4.4 x10^3/uL (4.8-10.8)
[2020-09-25 18:55] LABS: ALBUMIN 3.5 g/dL (3.2-5.5); ALBUMIN/GLOBULIN RATIO 1.5 (1.0-2.2); BILIRUBIN,TOTAL 2.3 mg/dL (0.2-1.0); CALCIUM 8.5 mg/dL (8.5-10.3); CREATININE 1.9 mg/dL (0.6-1.2); POTASSIUM 4.9 mmol/L (3.5-5.0); TOTAL PROTEIN 5.8 g/dL (6.7-8.2)
[2020-09-26] MEDS ORDERED: LACTULOSE 10 GM /15 ML UDC PO STA (08:46)
[2020-09-26] MEDS ORDERED: LACTULOSE 10 GM /15 ML UDC PO SCH (09:00)
[2020-09-26 09:24] LABS: CALCIUM 8.5 mg/dL (8.5-10.3); POTASSIUM 4.5 mmol/L (3.5-5.0)
[2020-09-26] MEDS: LACTULOSE 10 GM/15 ML BOTTLE PO SCH ×4 (10:49→21:40)
[2020-09-26] MEDS: buPROPion XL 150 MG TABLET PO SCH (10:49)
[2020-09-26] MEDS: VENLAFAXINE ER 75 MG CAPSULE PO SCH (10:49)
[2020-09-26] MEDS: rifAXIMin 550 MG TABLET PO SCH ×2 (10:49→23:10)
[2020-09-26] MEDS ORDERED: ALBUMIN 25% 12.5 GM/50 ML VIAL IV STA (11:15)
--- NOTE | 2020-09-26 16:20 | Ultrasound Report ---
PROCEDURE: Abdominal Paracentesis INDICATIONS: ascites, liver failure TECHNIQUE: The indications, alternatives, benefits, risks, and complications of the procedure were explained to the patient. Written informed consent was obtained and placed in the chart. The abdomen and pelvis were examined sonographically, and an appropriate site was chosen for paracentesis. The skin was pre pared and draped in the usual sterile fashion, and 1% lidocaine was infiltrated from the skin down th rough the peritoneal surface. A 19-gauge catheter-covered needle was then introduced into the perito valerie space, the catheter was advanced and the needle was withdrawn, and thereafter peritoneal fluid w as withdrawn. The catheter was then removed and a dressing was applied. The fluid was discarded if the clinician did not order diagnostic testing of the fluid. FINDINGS: Access site: Right lower quadrant Needle: One-Step centesis catheter with introducer needle. Fluid volume and description: 5.3, blood-tinged translucent Fluid sent for diagnostic testing: Not requested Medications: 1% lidocaine for local anaesthesia. Complications: None. IMPRESSION: Successful ultrasound-guided paracentesis. Reviewed by: Hank Busch MD on 09/26/2020 4:19 PM PDT Approved by: Hank Busch MD on 09/26/2020 4:19 PM PDT Station ID: [id number]
--- NOTE | 2020-09-26 18:05 | ED Physician Documentation ---
ED Addendum - Addendum Addendum: Wound care on change of shift. The patient did not have any specific complaints. I ordered his daily routine medications. The patient had been scheduled for paracentesis today and ordered this and it was done in diagnostic imaging without any complications. Refer to their note. Social work talked with the patient and his mother and the mother was quite uncomfortable with being able to care for the patient and he had been having to have the fire department and EMS out to his place several times a day to help with lifting him off the floor or to the bathroom. This does not seem viable at this time. Social work is contacting his fur machine operator to see if they can expedite his nina luation for a longer term care which was supposed to be 2 days from now. 09/26/20 18:03
[2020-09-27] MEDS: rifAXIMin 550 MG TABLET PO SCH (09:50)
[2020-09-27] MEDS: buPROPion XL 150 MG TABLET PO SCH (09:50)
[2020-09-27] MEDS: VENLAFAXINE ER 75 MG CAPSULE PO SCH (09:51)
[2020-09-27] MEDS: LACTULOSE 10 GM/15 ML BOTTLE PO SCH (10:02)
--- NOTE | 2020-09-27 13:24 | ED Physician Documentation ---
ED Addendum - Addendum Addendum: 09/27/20 13:22The patient has been here in the emergency room awaiting hopefully placement into a level of care. The patient total social work of this morning that he does not want to be here in the ER anymore he would like to be discharged to home. He will take a taxi. He was able to ambulate within his room here. As such he does not seem disabled enough that he would not be able to care for himself necessarily. We would not really be able to hold him here against his wishes. At this point we will discharge him home to continue his usual medications. He is supposed to have a gin clerk interview to look for a care facility tomorrow.
[2020-09-27 13:32] VITALS: BP 115/54
== END 2020-09-27 13:32 | disposition home or self-care (01) ==
LOC: ED 18:09
DX: K70.31 Alcoholic cirrhosis of liver with ascites (principal); E72.20 Disorder of urea cycle metabolism, unspecified; K70.40 Alcoholic hepatic failure without coma; I10 Essential (primary) hypertension; E10.42 Type 1 diabetes mellitus with diabetic polyneuropathy; Z79.4 Long term (current) use of insulin; Z66 Do not resuscitate
CPT/HCPCS: 36415; 49083; 80048; 80053; 82140; 83690; 85025; 96361; 96365; 96366; 99283; 99284; A9270; J8499; P9047

== ENCOUNTER 2020-09-29 07:56 | Outpatient (CLI) | payer MEDICAID ==
[2020-09-29 08:11] LABS: BASOPHILS # (AUTO) 0.1 10^3/uL (0.0-0.1); BASOPHILS % (AUTO) 0.8 %; EOSINOPHILS # (AUTO) 0.2 10^3/uL (0.0-0.7); EOSINOPHILS % (AUTO) 2.3 %; HCT - HEMATOCRIT 27.5 % (42.0-52.0); HGB - HEMOGLOBIN 9.8 g/dL (14.0-18.0); LYMPHOCYTES % (AUTO) 14.3 %; MEAN CORPUSCULAR HEMOGLOBIN 32.5 pg (27.0-31.0); MEAN CORPUSCULAR HGB CONC 35.6 g/dL (32.0-36.0); MEAN CORPUSCULAR VOLUME 91.1 fL (80.0-94.0); MEAN PLATELET VOLUME 9.2 fL (7.4-11.4); MONOCYTES # (AUTO) 1.1 10^3/uL (0.0-1.0); MONOCYTES % (AUTO) 14.9 %; NEUTROPHILS # (AUTO) 4.7 10^3/uL (1.5-6.6); PLT - PLATELET COUNT 119 10^3/uL (130-450); RED BLOOD COUNT 3.02 10^6/uL (4.70-6.10); WHITE BLOOD COUNT 7.1 x10^3/uL (4.8-10.8)
[2020-09-29 08:16] LABS: INR 1.2 (0.8-1.2); PT - PROTHROMBIN TIME 13.1 secs (9.9-12.6)
[2020-09-29 08:19] LABS: CALCIUM 8.3 mg/dL (8.5-10.3); CREATININE 1.8 mg/dL (0.6-1.2); POTASSIUM 4.2 mmol/L (3.5-5.0)
--- NOTE | 2020-09-29 12:38 | Ultrasound Report ---
PROCEDURE: Abdominal Paracentesis INDICATIONS: ALCOHOLIC CIRRHOSIS OF LIVER W/ASCITES TECHNIQUE: The indications, alternatives, benefits, risks, and complications of the procedure were explained to the patient. Written informed consent was obtained and placed in the chart. The abdomen and pelvis were examined sonographically, and an appropriate site was chosen for paracentesis. The skin was pre pared and draped in the usual sterile fashion, and 1% lidocaine was infiltrated from the skin down th rough the peritoneal surface. A 19-gauge catheter-covered needle was then introduced into the perito valerie space, the catheter was advanced and the needle was withdrawn, and thereafter peritoneal fluid w as withdrawn. The catheter was then removed and a dressing was applied. The fluid was discarded if the clinician did not order diagnostic testing of the fluid. COMPARISON: None FINDINGS: Access site: Right lower quadrant Needle: One-Step centesis catheter with introducer needle. Fluid volume and description: 4.6 blood-tinged Fluid sent for diagnostic testing: No Medications: 1% lidocaine for local anaesthesia. Complications: None. IMPRESSION: Successful ultrasound-guided paracentesis. Reviewed by: Joanne Cabral MD on 09/29/2020 12:37 PM PDT Approved by: Joanne Cabral MD on 09/29/2020 12:37 PM PDT Station ID: [id number]
== END 2020-09-29 07:57 | disposition home or self-care (01) ==
LOC: DI 07:56
PROVIDERS: ATTEND Internal Medicine
DX: K70.31 Alcoholic cirrhosis of liver with ascites (principal)
CPT/HCPCS: 36415; 49083; 80048; 85025; 85610; 85730

== ENCOUNTER 2020-10-02 17:22 | Outpatient (CLI) | payer MEDICAID | END 2020-10-02 17:23 | disposition short-term general hospital (02) | LOC: EMS 17:22 | DX: Z74.2 Need for assistance at home and no other household member able to render care (principal) | CPT/HCPCS: A0425; A0429; A0999 ==

== ENCOUNTER 2020-10-15 20:25 | Outpatient (CLI) | payer MEDICAID | END 2020-10-15 20:26 | disposition critical access hospital (66) | LOC: EMS 20:25 | DX: M53.3 Sacrococcygeal disorders, not elsewhere classified (principal) | CPT/HCPCS: A0425; A0429; A0999 ==

== ENCOUNTER 2020-10-21 07:58 | Outpatient (CLI) | payer MEDICAID ==
--- NOTE | 2020-10-25 11:51 | WOUND CARE CONSULTATION ---
Referring Provider Name of Referring Provider:: ava Consult Date: 10/24/20 Chief Complaint - Chief Complaint Chief Complaint: sacral and bilateral heel ulcers History of Present Illness - History Obtained From Records Reviewed: Chart History obtained from: Chart, nursing - History of Present Illness HPI: 50 yo male with end-stage liver cirrhosis and pressure ulcers on heels and sacrum. History - Past Medical History Cardiovascular: reports: Hypertension, High cholesterol Respiratory: reports: Asthma Neuro: reports: Peripheral neuropathy Endocrine/Autoimmune: reports: Type 1 diabetes GI: reports: Cirrhosis : reports: Retention, Indwelling catheter HEENT: reports: Chronic vision loss Psych: reports: Depression, Anxiety Musculoskeletal: reports: Osteoarthritis Derm: reports: Psoriasis, Other MRSA Hx?: No - Past Surgical History Ortho: reports: Arthroscopic surgery - Family & Social History Family History: Mother: Alive and Well Family History Comment/Other: Based off of prior records, he reports his mother has obesity and hypertension. Denies any other family history. Unable to confir m this today given his encephalopathy. Living arrangement: Homeless Living Situation: With family Social History Notes: Review of prior records reveal that he lives at home with his mother. He smoked about a pack a day for 10 years but quit quite a few years ago. He was a previous alcoholic but quit drinking about 1 year ago. He previously drank for about 15 years. Denies illicit drug use. He currently does not work. - Substance History Use: Uses substance without health or social issues: Tobacco (hx of 25 year smoking), Alcohol (beer; sober since prioir admit) - POLST Patient has POLST: No POLST Status: DNR Objective General: Alert (Occasionally somnolent, oriented to place today) Abdomen: Other (ascites, large umbilical hernia, reducible) Comments/Notes: Bilateral heel pressure ulcers with eschar Sacral pressure ulcer - Wound Assessment Pressure ulcers, right heel Stage 3, left heel stage 2, sacrum unable to determine, but at least stage 3, possibly stage 4 Wound Care Photos: Taken before and after debridement Procedure - Procedure Note After obtaining signed informed consent, DP pulses checked and 3+ bilaterally the patient's bilateral heels were then prepped with Hibiclens and eschar was sharply debrided with 15 blade. Approximately 3cm x 4cm eschar removed from left heel and 2cm x 2 cm eschar on right heel. Underlying tissue boggy, not well vascularized on right. Wounds dressed with non-adherent dressing, sterile 4x4s and kerlix wrap. Sacral area then exposed and prepped with betadine. Xylocaine 2% with epinephrine injected around sacral eschar and sharply debrided 5cm x 6cm x Conclusion and Plan - Home Meds/Allergies Allergies cantaloupe Allergy (Verified 09/25/20 18:20) Anaphylaxis melon Allergy (Verified 09/25/20 18:20) Anaphylaxis lisinopril Adverse Reaction (Verified 09/25/20 18:20) Respiratory
== END 2020-10-21 07:59 | disposition critical access hospital (66) ==
LOC: EMS 07:58
DX: Z76.89 Persons encountering health services in other specified circumstances (principal)
CPT/HCPCS: A0425; A0429; A0999

== ENCOUNTER 2020-10-21 08:15 | Inpatient (IN) | payer MEDICAID ==
--- NOTE | 2020-10-21 08:28 | ED Physician Documentation ---
PD HPI NVD - Stated complaint Stated Complaint: HEAT EXHAUSTION - History obtained from History obtained from: Patient (he says his main complaint today is that his bed was not working right and he had feeling of weakness, fell from bed (without noted injury).), EMS, Caregiver (notes from [facility]) - History of Present Illness Timing - onset: Other (he says he has had feeling of weakness, some nausea. Vomited yesterday. Has ongoing soft stools due to medications. Mild dyspnea without cough.) Timing - details: Gradual onset Associated symptoms: Abdominal pain (ongoing due to ascites.). No: Fever Contributing factors: No: Sick contact, Recent antibiotics Improved by: Meds (he says he did get some meds for nausea.) Worsened by: No: Breathing, Palpation Similar symptoms before: Diagnosis (Ongoing abd distension, nausea due to cirrhosis and ascites. No recent drainage of it. No fevers. Has loose stools from lactulose. No recent change. General weakness.) Recently seen: Other (seen by Hospice providers. Patient says had recent increase in pain med doses. Otherwise no change in meds.) Review of Systems Constitutional: reports: Fatigue. denies: Fever Respiratory: reports: Dyspnea (mild at times). denies: Cough, Wheezing GI: reports: Abdominal Pain, Abdominal Swelling (chronic), Nausea, Vomiting (yesterday), Diarrhea. denies: Constipation : reports: Other (has nagy catheter in place, draining) Skin: reports: Lesions (sacral) PD PAST MEDICAL HISTORY - Past Medical History Cardiovascular: Hypertension, High cholesterol Respiratory: Asthma Neuro: Peripheral neuropathy Endocrine/Autoimmune: Type 1 diabetes GI: Cirrhosis : Retention, Indwelling catheter HEENT: Chronic vision loss Psych: Depression, Anxiety Musculoskeletal: Osteoarthritis Derm: Psoriasis, Other - Past Surgical History Past Surgical History: Yes Ortho: Arthroscopic surgery - Present Medications Home Medications: Ambulatory Orders Medication Instructions Recorded Confirmed Albuterol Sulfate [Proair Hfa 1 - 2 puffs INH Q4H PRN 11/13/16 10/21/20 Inhaler] Insulin Glargine,Hum.rec.anlog 65 units SUBQ DAILY PM 11/13/16 10/21/20 [Basaglar Kwikpen U-100] Insulin Regular, Human [Humulin R] 5 - 20 units SUBQ TIDWM 11/13/16 10/21/20 buPROPion HCL [Bupropion HCl Sr] 150 mg PO BID 02/15/20 10/21/20 Multivitamin W/Minerals [Theragran 1 tab PO DAILY #30 tablet 03/29/20 10/21/20 M] Tamsulosin [Flomax] 0.4 mg PO DAILY #30 cap 08/29/20 09/16/20 rifAXIMin [Xifaxan] 550 mg PO BID #60 tablet 09/06/20 09/16/20 Venlafaxine ER [Effexor ER] 75 mg PO DAILY 09/15/20 10/21/20 Lactulose 30 gm PO Q4HR #0 bottle 09/20/20 10/21/20 - Allergies Allergies/Adverse Reactions: Allergies Allergy/AdvReac Type Severity Reaction Status Date / Time cantaloupe Allergy Anaphylaxis Verified 10/21/20 08:33 melon Allergy Anaphylaxis Verified 10/21/20 08:33 lisinopril AdvReac Respiratory Verified 10/21/20 08:33 - Social History Does the pt smoke?: No Smoking Status: Never smoker Does the pt drink ETOH?: No Does the pt have substance abuse?: No - Immunizations Immunizations are current?: Yes - POLST Patient has POLST: No POLST Status: DNR PD ED PE NORMAL - Vitals Vital signs reviewed: Yes - General General: Alert and oriented X 3, Well developed/nourished - Neck Neck: Supple, no meningeal sign, No adenopathy - Cardiac Cardiac: RRR, No murmur - Respiratory Respiratory: Clear bilaterally - Abdomen Abdomen: Other (distended with dullness to percussion. Minimally tender. No percussion tenderness nor rebound. Reducible nontender umbilical hernia. ). No: Normal bowel sounds (decreased) - Derm Derm: Normal color, Warm and dry, Other (sacral area with partial thickness decubital ulcer without infection. Mepital type cushioned bandage in place, and replaced. ) - Neuro Neuro: Alert and oriented X 3, No motor deficit, Normal speech - Psych Psych: Other (he is cooperative and following direction here. ) Results - Vitals Vitals: Vital Signs - 24 hr 10/21/20 10/21/20 10/21/20 08:15 16:47 20:00 Temperature 36.7 C 36.6 C Heart Rate 107 H 100 89 Respiratory 16 16 15 Rate Blood Pressure 118/75 115/70 118/73 O2 Saturation 92 93 94 10/21/20 22:00 Temperature Heart Rate 85 Respiratory 14 Rate Blood Pressure 120/71 O2 Saturation 95 Oxygen O2 Source Room air - Labs Labs: Laboratory Tests 10/21/20 10/21/20 10/21/20 08:50 08:50 08:50 WBC 10.3 RBC 2.73 L Hgb 8.8 L Hct 26.9 L MCV 98.5 H MCH 32.2 H MCHC 32.7 RDW 15.3 H Plt Count 203 MPV 8.8 Neut # (Auto) 7.9 H Lymph # (Auto) 0.5 L [place] # (Auto) 1.4 H Eos # (Auto) 0.3 Baso # (Auto) 0.1 Absolute Nucleated RBC 0.00 Nucleated RBC % 0.0 Sodium 136 Potassium 5.4 H Chloride 102 Carbon Dioxide 26 Anion Gap 8.0 BUN 81 H* Creatinine 1.9 H Estimated GFR (MDRD) 37 L Glucose 202 H Lactic Acid Calcium 8.6 Magnesium 2.7 Total Bilirubin 3.1 H AST 34 ALT 24 Alkaline Phosphatase 100 Ammonia 68.0 H Total Protein 5.9 L Albumin 3.0 L Globulin 2.9 Albumin/Globulin Ratio 1.0 Lipase 47 Nasal Adenovirus (PCR) Nasal B. parapertussis DNA (PCR) Nasal Coronavir 229E PCR Nasal Coronavir HKU1 PCR Nasal Coronavir NL63 PCR Nasal Coronavir OC43 PCR Nasal Enterovir/Rhinovir PCR Nasal Influenza B PCR Nasal Influenza A PCR Nasal Parainfluen 1 PCR Nasal Parainfluen 2 PCR Nasal Parainfluen 3 PCR Nasal Parainfluen 4 PCR Nasal RSV (PCR) Nasal B.pertussis DNA PCR Nasal C.pneumoniae (PCR) Natanael Human Metapneumo PCR Nasal M.pneumoniae (PCR) Nasal SARS-CoV-2 (PCR) 10/21/20 10/21/20 08:50 13:17 WBC RBC Hgb Hct MCV MCH MCHC RDW Plt Count MPV Neut # (Auto) Lymph # (Auto) [place] # (Auto) Eos # (Auto) Baso # (Auto) Absolute Nucleated RBC Nucleated RBC % Sodium Potassium Chloride Carbon Dioxide Anion Gap BUN Creatinine Estimated GFR (MDRD) Glucose Lactic Acid 1.5 Calcium Magnesium Total Bilirubin AST ALT Alkaline Phosphatase Ammonia Total Protein Albumin Globulin Albumin/Globulin Ratio Lipase Nasal Adenovirus (PCR) NOT DETECTED Nasal B. parapertussis DNA (PCR) NOT DETECTED Nasal Coronavir 229E PCR NOT DETECTED Nasal Coronavir HKU1 PCR NOT DETECTED Nasal Coronavir NL63 PCR NOT DETECTED Nasal Coronavir OC43 PCR NOT DETECTED Nasal Enterovir/Rhinovir PCR NOT DETECTED Nasal Influenza B PCR NOT DETECTED Nasal Influenza A PCR NOT DETECTED Nasal Parainfluen 1 PCR NOT DETECTED Nasal Parainfluen 2 PCR NOT DETECTED Nasal Parainfluen 3 PCR NOT DETECTED Nasal Parainfluen 4 PCR NOT DETECTED Nasal RSV (PCR) NOT DETECTED Nasal B.pertussis DNA PCR NOT DETECTED Nasal C.pneumoniae (PCR) NOT DETECTED Natanael Human Metapneumo PCR NOT DETECTED Nasal M.pneumoniae (PCR) NOT DETECTED Nasal SARS-CoV-2 (PCR) NOT DETECTED PD MEDICAL DECISION MAKING - ED course Complexity details: reviewed results, considered differential (Main issue seems to be poor cooperation with care at SNF and not liking it there. He requests placement somewhere else, and [facility] feels they cannot care for him without his interaction. Social Work looking into it. ), d/w patient, d/w economic consultant (Social WOrk talked with [facility], patient's mom, and hospital admin. Patient will try to be placed in another SNF but will take days in the process at least, so is to remain in the ER. ) Departure - Departure Clinical Impression: Uncooperative behavior, Muscle weakness, Ascites due to alcoholic cirrhosis, End stage liver disease Condition: Stable
[2020-10-21 08:51] LABS: BASOPHILS # (AUTO) 0.1 10^3/uL (0.0-0.1); EOSINOPHILS # (AUTO) 0.3 10^3/uL (0.0-0.7); EOSINOPHILS % (AUTO) 3.3 %; HCT - HEMATOCRIT 26.9 % (42.0-52.0); HGB - HEMOGLOBIN 8.8 g/dL (14.0-18.0); LYMPHOCYTES # (AUTO) 0.5 10^3/uL (1.5-3.5); MEAN CORPUSCULAR HEMOGLOBIN 32.2 pg (27.0-31.0); MEAN CORPUSCULAR HGB CONC 32.7 g/dL (32.0-36.0); MEAN CORPUSCULAR VOLUME 98.5 fL (80.0-94.0); MEAN PLATELET VOLUME 8.8 fL (7.4-11.4); MONOCYTES # (AUTO) 1.4 10^3/uL (0.0-1.0); MONOCYTES % (AUTO) 13.5 %; NEUTROPHILS # (AUTO) 7.9 10^3/uL (1.5-6.6); NEUTROPHILS % (AUTO) 76.4 %; PLT - PLATELET COUNT 203 10^3/uL (130-450); RED BLOOD COUNT 2.73 10^6/uL (4.70-6.10); RED CELL DISTRIBUTION WIDTH 15.3 % (12.0-15.0); WHITE BLOOD COUNT 10.3 x10^3/uL (4.8-10.8)
[2020-10-21 09:07] LABS: BILIRUBIN,TOTAL 3.1 mg/dL (0.2-1.0); CALCIUM 8.6 mg/dL (8.5-10.3); CREATININE 1.9 mg/dL (0.6-1.2); MAGNESIUM 2.7 mg/dL (1.7-2.8); POTASSIUM 5.4 mmol/L (3.5-5.0); TOTAL PROTEIN 5.9 g/dL (6.7-8.2)
--- NOTE | 2020-10-21 09:11 | XRAY Report ---
PROCEDURE: Chest 1 View X-Ray INDICATIONS: dyspnea TECHNIQUE: One view of the chest was acquired. COMPARISON: 12/17/2020, 03/18/2020 FINDINGS: Surgical changes and devices: None. Lungs and pleura: An incomplete inspiratory result is noted, with low lung volumes and crowding of t he vascular markings. No focal infiltrates are seen. No large pneumothorax or large pleural effusion can be seen. Mediastinum: Mediastinal contours appear normal. Heart size is normal. Bones and chest wall: No suspicious bony lesions. Age-appropriate degenerative changes are seen. O verlying soft tissues appear unremarkable. IMPRESSION: Low lung volumes, without an acute abnormality identified. Reviewed by: Reese Richardson MD on 10/21/2020 8:09 AM AILYN Approved by: Reese Richardson MD on 10/21/2020 8:09 AM AILYN Station ID: [id number]
[2020-10-21 14:49] LABS: B. PARAPERTUSSIS- RESP PCR PAN NOT DETECTED; B. PERTUSSIS- RESP PCR PANEL NOT DETECTED; C. PNEUMONIAE- RESP PCR PANEL NOT DETECTED; CORONAVIRUS 229E-RESP PCR NOT DETECTED; CORONAVIRUS HKU1-RESP PCR NOT DETECTED; CORONAVIRUS NL63-RESP PCR NOT DETECTED; CORONAVIRUS OC43-RESP PCR NOT DETECTED; HUMAN METAPNEUMOVIRUS NOT DETECTED; INFLUENZA A- RESP PCR PANEL NOT DETECTED; INFLUENZA B - RESP PCR PANEL NOT DETECTED; M. PNEUMONIAE- RESP PCR PANEL NOT DETECTED; PARAINFLUENZA VIRUS 1 NOT DETECTED; PARAINFLUENZA VIRUS 2 NOT DETECTED; PARAINFLUENZA VIRUS 3 NOT DETECTED; PARAINFLUENZA VIRUS 4 NOT DETECTED; RHINOVIRUS/ENTEROVIRUS NOT DETECTED; RSV- RESP PCR PANEL NOT DETECTED; SARS-CoV-2 -RESP PCR PANEL NOT DETECTED
[2020-10-22] MEDS ORDERED: ALBUTEROL NEB 2.5 MG/3 ML INH PRN (01:37)
[2020-10-22] MEDS: buPROPion SR 150 MG TABLET PO SCH ×3 (02:53→21:06)
[2020-10-22] MEDS: VENLAFAXINE 37.5 MG TABLET PO SCH ×3 (02:53→21:07)
[2020-10-22] MEDS: LACTULOSE 10 GM /15 ML UDC PO SCH ×5 (07:24→23:24)
[2020-10-22] MEDS ORDERED: INSULIN REGULAR HUMAN 100 UNIT/1 ML 10 ML MDV SUBQ STA (17:00)
[2020-10-22] MEDS: INSULIN GLARGINE 300 UNIT/3 ML PEN SUBQ SCH (21:07)
[2020-10-23] MEDS: LACTULOSE 10 GM /15 ML UDC PO SCH ×2 (03:18→08:38)
[2020-10-23] MEDS: VENLAFAXINE 37.5 MG TABLET PO SCH ×2 (10:14→21:14)
[2020-10-23] MEDS: buPROPion SR 150 MG TABLET PO SCH ×2 (10:14→21:14)
[2020-10-23] MEDS: LACTULOSE 10 GM/15 ML BOTTLE PO SCH ×3 (13:06→21:19)
[2020-10-23] MEDS: INSULIN GLARGINE 300 UNIT/3 ML PEN SUBQ SCH (21:20)
[2020-10-24] MEDS: LACTULOSE 10 GM/15 ML BOTTLE PO SCH ×6 (01:02→21:09)
[2020-10-24] MEDS: VENLAFAXINE 37.5 MG TABLET PO SCH ×2 (10:29→21:08)
[2020-10-24] MEDS: buPROPion SR 150 MG TABLET PO SCH ×2 (10:29→21:08)
--- NOTE | 2020-10-24 15:13 | ED Physician Documentation ---
ED Addendum - Addendum Addendum: 10/24/20 15:12The patient remains in the emergency department. Social work is still attempting to find placement for him. He was up on his side at the beginning of the shift so was able to look at his sacral decubitus ulcer. It looks similar to when he arrived there with a bit of moisture to it. We should do it dressing change. Otherwise he remains on his usual medicines.
[2020-10-24 18:03] LABS: BASOPHILS # (AUTO) 0.1 10^3/uL (0.0-0.1); BASOPHILS % (AUTO) 0.8 %; EOSINOPHILS # (AUTO) 0.2 10^3/uL (0.0-0.7); EOSINOPHILS % (AUTO) 1.5 %; HCT - HEMATOCRIT 26.3 % (42.0-52.0); HGB - HEMOGLOBIN 8.9 g/dL (14.0-18.0); LYMPHOCYTES # (AUTO) 0.9 10^3/uL (1.5-3.5); LYMPHOCYTES % (AUTO) 7.2 %; MEAN CORPUSCULAR HEMOGLOBIN 32.4 pg (27.0-31.0); MEAN CORPUSCULAR HGB CONC 33.8 g/dL (32.0-36.0); MEAN CORPUSCULAR VOLUME 95.6 fL (80.0-94.0); MEAN PLATELET VOLUME 9.2 fL (7.4-11.4); MONOCYTES # (AUTO) 1.9 10^3/uL (0.0-1.0); MONOCYTES % (AUTO) 14.7 %; NEUTROPHILS # (AUTO) 9.5 10^3/uL (1.5-6.6); NEUTROPHILS % (AUTO) 74.3 %; PLT - PLATELET COUNT 213 10^3/uL (130-450); RED BLOOD COUNT 2.75 10^6/uL (4.70-6.10); RED CELL DISTRIBUTION WIDTH 14.8 % (12.0-15.0); WHITE BLOOD COUNT 12.8 x10^3/uL (4.8-10.8)
[2020-10-24 18:05] LABS: SLIDE REVIEW? Indicated
[2020-10-24 18:26] LABS: ALBUMIN 2.7 g/dL (3.2-5.5); ALBUMIN/GLOBULIN RATIO 0.8 (1.0-2.2); BILIRUBIN,TOTAL 2.5 mg/dL (0.2-1.0); CALCIUM 8.2 mg/dL (8.5-10.3); CREATININE 1.5 mg/dL (0.6-1.2); CRP - C-REACTIVE PROTEIN 13.1 mg/dL (0-1.0); POTASSIUM 4.4 mmol/L (3.5-5.0); TOTAL PROTEIN 5.9 g/dL (6.7-8.2)
[2020-10-24] MEDS: INSULIN GLARGINE 300 UNIT/3 ML PEN SUBQ SCH (21:08)
--- NOTE | 2020-10-24 22:30 | ED Physician Documentation ---
ED Addendum - Addendum Addendum: 10/24/20 22:28 Patient was seen by wound care, Jessica Alonzo who recommends a surgical consult for possible debridement in the OR of his sacral wound. Dr. Viczarra came and evaluated the patient and will plan on taking the patient to the OR tomorrow. Patient will be n.p.o. after midnight. This document was made in part using voice recognition software. While efforts are made to proofread this document, sound alike and grammatical errors may occur.
[2020-10-25] MEDS ORDERED: diazePAM 5 MG TABLET PO STA (00:19)
[2020-10-25] MEDS: LACTULOSE 10 GM/15 ML BOTTLE PO SCH ×6 (00:36→21:21)
[2020-10-25] MEDS ORDERED: LIDOCAINE-MPF 2% 5 ML VIAL SUBQ ONE (09:30)
[2020-10-25] MEDS ORDERED: LIDOCAINE MPF 2%-EPI 1:200000 20 ML VIAL ONE ×2 (09:36→09:37)
[2020-10-25] MEDS: buPROPion SR 150 MG TABLET PO SCH ×2 (11:08→21:20)
[2020-10-25] MEDS: VENLAFAXINE 37.5 MG TABLET PO SCH ×2 (11:09→21:20)
[2020-10-25 13:16] LABS: INR 1.6 (0.8-1.2); PT - PROTHROMBIN TIME 17.1 secs (9.9-12.6)
[2020-10-25 13:43] LABS: BASOPHILS # (AUTO) 0.1 10^3/uL (0.0-0.1); BASOPHILS % (AUTO) 0.6 %; EOSINOPHILS # (AUTO) 0.1 10^3/uL (0.0-0.7); EOSINOPHILS % (AUTO) 0.7 %; HCT - HEMATOCRIT 26.2 % (42.0-52.0); HGB - HEMOGLOBIN 8.8 g/dL (14.0-18.0); MEAN CORPUSCULAR HEMOGLOBIN 31.9 pg (27.0-31.0); MEAN CORPUSCULAR HGB CONC 33.6 g/dL (32.0-36.0); MEAN CORPUSCULAR VOLUME 94.9 fL (80.0-94.0); MEAN PLATELET VOLUME 8.9 fL (7.4-11.4); MONOCYTES # (AUTO) 1.9 10^3/uL (0.0-1.0); MONOCYTES % (AUTO) 13.7 %; NEUTROPHILS # (AUTO) 10.3 10^3/uL (1.5-6.6); NEUTROPHILS % (AUTO) 76.7 %; PLT - PLATELET COUNT 216 10^3/uL (130-450); RED BLOOD COUNT 2.76 10^6/uL (4.70-6.10); WHITE BLOOD COUNT 13.5 x10^3/uL (4.8-10.8)
[2020-10-25 13:54] LABS: ALBUMIN 2.7 g/dL (3.2-5.5); ALBUMIN/GLOBULIN RATIO 0.8 (1.0-2.2); BILIRUBIN,TOTAL 2.7 mg/dL (0.2-1.0); CREATININE 1.5 mg/dL (0.6-1.2); POTASSIUM 4.4 mmol/L (3.5-5.0); TOTAL PROTEIN 5.9 g/dL (6.7-8.2)
[2020-10-25 14:12] LABS: RBC MORPHOLOGY (MULTIPLE) 2+ ANISOCYTOSIS (NORMAL)
--- NOTE | 2020-10-25 14:31 | PHARMACY PROGRESS NOTE ---
- Best Possible Medication History Admit Date and Time: 10/25/20 1229 Processed by: Nursing Medication History completed: Yes Med rec completed by nursing As the person ultimately responsible for medication therapy, providers are able to order a medication from an existing home medication list in [facility] via the "Reconcile Routine" prior to Confirmation of that medication by is support analyst. Such practice is discouraged except when the physician, in their clinical judgment, deems that a medical need exists for a medication without regard to previous use.
[2020-10-25] MEDS ORDERED: HYDROmorphone 0.5 MG/0.5 ML SYRINGE IVP ONE (15:00)
--- NOTE | 2020-10-25 15:14 | WOUND CARE PROGRESS NOTE ---
Assessment/Plan - Problem List (1) Decubitus skin ulcer Qualifiers: Pressure injury location: sacral region Pressure injury stage: stage 3 Qualified Code(s): L89.153 - Pressure ulcer of sacral region, stage 3 - Results Lab Results: Laboratory Results Sodium 129 mmol/L (135-145) L 10/25/20 13:34 Potassium 4.4 mmol/L (3.5-5.0) 10/25/20 13:34 Chloride 97 mmol/L (101-111) L 10/25/20 13:34 Carbon Dioxide 23 mmol/L (21-32) 10/25/20 13:34 Anion Gap 9.0 (6-13) 10/25/20 13:34 BUN 65 mg/dL (6-20) H 10/25/20 13:34 Creatinine 1.5 mg/dL (0.6-1.2) H 10/25/20 13:34 Glucose 190 mg/dL (70-100) H 10/25/20 13:34 Calcium 8.0 mg/dL (8.5-10.3) L 10/25/20 13:34 Total Bilirubin 2.7 mg/dL (0.2-1.0) H 10/25/20 13:34 AST 29 IU/L (10-42) 10/25/20 13:34 ALT 20 IU/L (10-60) 10/25/20 13:34 Alkaline Phosphatase 125 IU/L (42-121) H 10/25/20 13:34 Total Protein 5.9 g/dL (6.7-8.2) L 10/25/20 13:34 Albumin 2.7 g/dL (3.2-5.5) L 10/25/20 13:34 Globulin 3.2 g/dL (2.1-4.2) 10/25/20 13:34 Albumin/Globulin Ratio 0.8 (1.0-2.2) L 10/25/20 13:34 Additional Results: Laboratory Results - last 24 hr 10/24/20 10/24/20 10/24/20 17:10 17:59 17:59 WBC 12.8 H RBC 2.75 L Hgb 8.9 L Hct 26.3 L MCV 95.6 H MCH 32.4 H MCHC 33.8 RDW 14.8 Plt Count 213 MPV 9.2 Neut # (Auto) 9.5 H Lymph # (Auto) 0.9 L [place] # (Auto) 1.9 H Eos # (Auto) 0.2 Baso # (Auto) 0.1 Absolute Nucleated RBC 0.00 Nucleated RBC % 0.0 Manual Slide Review Indicated RBC Morph Micro Appear 1+ HYPOCHROMASIA ESR 65 H PT INR Sodium Potassium Chloride Carbon Dioxide Anion Gap BUN Creatinine Estimated GFR (MDRD) Glucose POC Whole Bld Glucose 164 H Lactic Acid Calcium Total Bilirubin AST ALT Alkaline Phosphatase C-Reactive Protein Total Protein Albumin Globulin Albumin/Globulin Ratio 10/24/20 10/24/20 10/25/20 17:59 21:02 08:22 WBC RBC Hgb Hct MCV MCH MCHC RDW Plt Count MPV Neut # (Auto) Lymph # (Auto) [place] # (Auto) Eos # (Auto) Baso # (Auto) Absolute Nucleated RBC Nucleated RBC % Manual Slide Review RBC Morph Micro Appear ESR PT INR Sodium 129 L Potassium 4.4 Chloride 96 L Carbon Dioxide 23 Anion Gap 10.0 BUN 61 H Creatinine 1.5 H Estimated GFR (MDRD) 49 L Glucose 211 H POC Whole Bld Glucose 212 H 144 H Lactic Acid Calcium 8.2 L Total Bilirubin 2.5 H AST 31 ALT 23 Alkaline Phosphatase 126 H C-Reactive Protein 13.1 H Total Protein 5.9 L Albumin 2.7 L Globulin 3.2 Albumin/Globulin Ratio 0.8 L 10/25/20 10/25/20 10/25/20 11:52 12:50 13:34 WBC 13.5 H RBC 2.76 L Hgb 8.8 L Hct 26.2 L MCV 94.9 H MCH 31.9 H MCHC 33.6 RDW 15.0 Plt Count 216 MPV 8.9 Neut # (Auto) 10.3 H Lymph # (Auto) 1.0 L [place] # (Auto) 1.9 H Eos # (Auto) 0.1 Baso # (Auto) 0.1 Absolute Nucleated RBC 0.00 Nucleated RBC % 0.0 Manual Slide Review RBC Morph Micro Appear 2+ ANISOCYTOSIS ESR PT 17.1 H INR 1.6 H Sodium Potassium Chloride Carbon Dioxide Anion Gap BUN Creatinine Estimated GFR (MDRD) Glucose POC Whole Bld Glucose 154 H Lactic Acid Calcium Total Bilirubin AST ALT Alkaline Phosphatase C-Reactive Protein Total Protein Albumin Globulin Albumin/Globulin Ratio 10/25/20 10/25/20 13:34 13:34 WBC RBC Hgb Hct MCV MCH MCHC RDW Plt Count MPV Neut # (Auto) Lymph # (Auto) [place] # (Auto) Eos # (Auto) Baso # (Auto) Absolute Nucleated RBC Nucleated RBC % Manual Slide Review RBC Morph Micro Appear ESR PT INR Sodium 129 L Potassium 4.4 Chloride 97 L Carbon Dioxide 23 Anion Gap 9.0 BUN 65 H Creatinine 1.5 H Estimated GFR (MDRD) 49 L Glucose 190 H POC Whole Bld Glucose Lactic Acid 2.1 Calcium 8.0 L Total Bilirubin 2.7 H AST 29 ALT 20 Alkaline Phosphatase 125 H C-Reactive Protein Total Protein 5.9 L Albumin 2.7 L Globulin 3.2 Albumin/Globulin Ratio 0.8 L - Home Meds/Allergies Allergies cantaloupe Allergy (Verified 10/21/20 08:33) Anaphylaxis melon Allergy (Verified 10/21/20 08:33) Anaphylaxis lisinopril Adverse Reaction (Verified 10/21/20 08:33) Respiratory Procedure - Procedure Note Addendum to Wound care consultation dated 10/25/2020: Sacral wound sharply debrided with 15 blade removing 5cm x 6 cm x 1 cm thick eschar. Underlying tissue poorly vascularized but not debrided further due to local anesthetic only and risk of bleeding.
--- NOTE | 2020-10-25 17:27 | HISTORY & PHYSICAL EXAMINATION ---
Chief Complaint - Chief Complaint Chief Complaint: Heel and sacral wounds History of Present Illness - Admitted From Admitted From:: ED - History Obtained From History obtained from: ED provider, old records and the patient - History of Present Illness HPI Comment/Other: This is a 56-year-old WM with history of morbid obesity, history of diabetes, alcohol abuse (he drank 1-2 sixpacks of beer a day for 15 years), developed hepatic cirrhosis with esophageal varices, apparently diagnosed with hepatocellular carcinoma followed at [facility], has had multiple admissions here for managing massive ascites and hepatic encephalopathy, noncompliance with Lactulose, uncooperative and abusive behavior. He used to have paracentesis 2 times a week for months, at the [facility] [place]. He was then living with his mother (August 2020) who stated she could no longer take care of him. He was also previously in Hospice then apparently signed himself out. For the last 6 weeks he has been living at [facility], he no longer gets paracenteses, has been stable from his encephalopathy standpoint by being compliant with his oral Lactulose when administered. He presented to the emergency room 3 days ago for complaints of not being cooperative at [facility] and requesting a different long-term shelter placement. The vp digital marketing social media and crm has been working on placement. He has been kept on his diabetic diet and lactulose and fluid restriction while in the ED for 3 days. Yesterday the ED provider requested a surgical consult for managing pressure wounds of both heels and a sacral decubitus ulcer. Today the general surgeon performed debridement in the ED of both heels and with local anesthetic he debrided the sacral wound. The patient is now being admitted for management of his wounds with dressings and probable antibiotics, evaluation for osteomyelitis, pain management and to continue his treatment of liver failure, diabetes and continue working on his placement for permanent long-term care. The patient has a Full Code status. His CODE STATUS was discussed with his closest relative, his mother by Palliative Care Provider Harper Montiel NP in August 2020, but no POLST or final decision about transitioning to DNR is in our records. History - Past Medical History Cardiovascular: reports: Hypertension, High cholesterol Respiratory: reports: Asthma Neuro: reports: Peripheral neuropathy Endocrine/Autoimmune: reports: Type 1 diabetes GI: reports: Cirrhosis : reports: Retention, Indwelling catheter HEENT: reports: Chronic vision loss Psych: reports: Depression, Anxiety Musculoskeletal: reports: Osteoarthritis, Fatigue, Chronic back pain Derm: reports: Psoriasis, Other MRSA Hx?: No - Past Surgical History General: reports: Other (Numerous paracenteses) Ortho: reports: Arthroscopic surgery - Family & Social History Family History: Mother: Alive and Well Family History Comment/Other: Based off of prior records, he reports his mother has obesity and hypertension. Denies any other family history. Unable to c onfirm this today given his encephalopathy. Living arrangement: Assisted living Social History Notes: Review of prior records reveal that he lived at home with his mother. He smoked about a pack a day for 10 years but quit quite a few years ago. He was a previous alcoholic but quit drinking about 6 mos ago. He previously drank for about 15 years. Denies illicit drug use. He currently does not work. - Substance History Use: Uses substance without health or social issues: Tobacco (hx of 25 year smoking), Alcohol (beer; sober since prioir admit) - POLST Patient has POLST: No POLST Status: Full Code Meds/Allgy - Home Medications Home Medications: Ambulatory Orders Medication Instructions Recorded Confirmed Albuterol Sulfate [Proair Hfa 1 - 2 puffs INH Q4H PRN 11/13/16 10/21/20 Inhaler] Insulin Glargine,Hum.rec.anlog 65 units SUBQ DAILY PM 11/13/16 10/21/20 [Basaglar Kwikpen U-100] Insulin Regular, Human [Humulin R] 5 - 20 units SUBQ TIDWM 11/13/16 10/21/20 buPROPion HCL [Bupropion HCl Sr] 150 mg PO BID 02/15/20 10/21/20 Multivitamin W/Minerals [Theragran 1 tab PO DAILY #30 tablet 03/29/20 10/21/20 M] Venlafaxine ER [Effexor ER] 75 mg PO DAILY 09/15/20 10/21/20 Lactulose 30 gm PO Q4HR #0 bottle 09/20/20 10/21/20 - Allergies Allergies/Adverse Reactions: Allergies Allergy/AdvReac Type Severity Reaction Status Date / Time cantaloupe Allergy Anaphylaxis Verified 10/21/20 08:33 melon Allergy Anaphylaxis Verified 10/21/20 08:33 lisinopril AdvReac Respiratory Verified 10/21/20 08:33 Review of Systems - Constitutional Constitutional: reports: Fatigue, Weakness - Gastrointestinal Gastrointestinal: reports: Abdominal distention - Genitourinary Genitourinary: reports: Other (indwelling Blunt cath for urinary retention) - Musculoskeletal Musculoskeletal: reports: Muscle weakness (He states he has been mostly bedbound while living at [facility] for the past 6-week) - Neurological Neurological: reports: Other (Hx of hepatic encephalopathy) - All Other Systems All Other Systems: reports: Reviewed and negative Exam - Vital Signs Vital Signs: Vital Signs x48h Temp Pulse Resp BP Pulse Ox 10/25/20 16:00 37.2 C 95 18 106/63 93 10/25/20 13:51 36 C L 93 17 137/60 H 97 - Physical Exam General Appearance: positive: No acute distress, Other (Sunken eyes, temporal wasting, poorly kempt, icteric) Eyes Bilateral: positive: EOMI, Other (Icteric) ENT: positive: No signs of dehydration, Other (Poor dentition) Neck: positive: Nml inspection Respiratory: positive: No respiratory distress, Breath sounds nml Cardiovascular: positive: No murmur Abdomen: positive: Other (Distended, soft, not tense, nontender, present bowel sounds) Extremities: positive: No pedal edema, Other (Venous stasis shins, both heels bandaged) Neurologic/Psychiatric: positive: Oriented x3 (Non-focal grossly, no asterixis) Conclusion/Plan - Problem List (1) Alcoholic liver failure Conclusion/Plan: We will continue with his lactulose frequent dosing and titrate to about 3 bowel movements per day which she is having. The ascites is currently not tense and will not plan scheduled paracenteses to r esume. We will continue with any Spironolactone or fluid management as done most recently, after his med list is reconciled. Will request follow-up consultation from Palliative Care (2) Sacral pressure ulcer Conclusion/Plan: Will ordered pain meds as needed, following the debridement. We will obtain an MRI to rule out osteomyelitis. Will continue with wet-to-dry dressings as recommended by the surgeon. Will draw blood cultures empirically current Will consider IV antibiotics Qualifiers: Pressure injury stage: unspecified pressure injury stage Qualified Code(s): L89.159 - Pressure ulcer of sacral region, unspecified stage (3) Heel ulceration Conclusion/Plan: We will continue with bandaging both heela, dressing changes will be ordered by the surgeon. Consideration for transfer for higher level of care for plastic surgery, as discussed verbally with Dr Vizcarra. Will obtain MRI of both heels to evaluate for osteomyelitis. We will obtain blood cultures empirically. Will potentially start antibiotics Qualifiers: Non-pressure ulcer stage: unspecified non-pressure ulcer stage (4) Hyponatremia Conclusion/Plan: Continue his 1800 cc free fluid per day restriction. We will not give IV saline hydration. Follow BMP daily or every other day (5) Diabetes mellitus with complication Conclusion/Plan: This patient has peripheral neuropathy from the diabetes. We will continue with a carb controlled diet, his insulin doses and sliding scale management. (6) CKD (chronic kidney disease) Conclusion/Plan: Avoid nephrotoxins. Continue with free water fluid restriction but will not give saline hydration. Follow BMP daily (7) Anemia Conclusion/Plan: Continue with his oral supplements. We will recheck B12, folate levels and iron stores and replace if low. Follow hemoglobin daily or every other day (8) Anxiety and depression Conclusion/Plan: Will continue his Wellbutrin - Lab Results Fish Bones: 10/25/20 13:34 10/25/20 13:34
--- NOTE | 2020-10-25 17:50 | MRI Report ---
PROCEDURE: Lumbar Spine W/O INDICATIONS: Suspected osteomyelitis TECHNIQUE: Noncontrast sagittal T1 spin echo and T2 fast echo, sagittal STIR, axial T1 and T2 fast spin echo thr ough the lumbar spine. In cases with scoliosis, additional coronal T2 fast spin echo may be performe d. COMPARISON: None. FINDINGS: Image quality: Excellent. Alignment and Curvature: Normal lumbar vertebral body height and alignment. Bone Marrow: There is no bone marrow edema or suspicious low T1 focal marrow signal abnormality. Ther e is no suspicious fluid signal in the intervertebral disc spaces. Spinal Cord: Conus medullaris terminates at the normal level. No unenhanced evidence of epidural col lection. Visualized cord demonstrates normal signal and size. Regional Soft Tissues: Prevertebral and paraspinous soft tissues are within normal limits. T12-L1: Normal in appearance. L1-L2: Normal in appearance. L2-L3: Normal in appearance. L3-L4: Disc bulge and protrusion in indenting the ventral thecal sac with mild displacement of the descending L4 nerve roots in both subarticular zones. Foraminal components of the disc bulge and face t hypertrophy combine to produce mild bilateral neural foraminal stenosis. L4-L5: Moderate spinal canal and subarticular zone stenosis with displacement of the descending L5 nerve roots and both subarticular zones, due to a combination of diffuse disc bulge, super imposed br oad-based posterior disc protrusion, and facet hypertrophy. The L5 nerve roots are interposed between disc and facet material within the subarticular zones, potentially representing impingement. Femoral components of the disc bulge and facet hypertrophy combine to produce mild bilateral neural foramina l stenosis. L5-S1: Severe spinal canal and subarticular zone stenosis bilaterally due to a large disc extrusion . There is probable impingement of the S1 nerve roots and possibly the S2 nerve roots also, with inte rposition of these nerve roots between extruded disc material and the adjacent facets. Foraminal comp onents of the disc bulge and facet hypertrophy combine to produce moderate bilateral neural foraminal stenosis, right greater than left. IMPRESSION: No findings of discitis or osteomyelitis. Large disc extrusion at L5-S1 producing severe spinal canal and subarticular zone stenosis with proba ble impingement of the descending S1 nerve roots. Moderate-sized protrusion at L4-L5 with displacement of the descending L5 nerve roots. Reviewed by: Hank Busch MD on 10/25/2020 5:49 PM PDT Approved by: Hank Busch MD on 10/25/2020 5:49 PM PDT Station ID: [id number]
[2020-10-25] MEDS: SODIUM CHLORIDE FLUSH 0.9% 10 ML SYRINGE IVP SCH (21:21)
[2020-10-25] MEDS: INSULIN GLARGINE 300 UNIT/3 ML PEN SUBQ SCH (21:24)
[2020-10-25] MEDS: HEPARIN 5,000 UNIT/ML VIAL SUBQ SCH (21:28)
[2020-10-26] MEDS: LACTULOSE 10 GM/15 ML BOTTLE PO SCH ×7 (01:19→23:53)
[2020-10-26] MEDS: SODIUM CHLORIDE FLUSH 0.9% 10 ML SYRINGE IVP SCH ×4 (01:19→23:52)
[2020-10-26] MEDS: oxyCODONE 5 MG TABLET PO PRN ×4 (01:41→22:01)
[2020-10-26 05:13] LABS: BASOPHILS % (AUTO) 0.6 %; EOSINOPHILS % (AUTO) 0.9 %; HCT - HEMATOCRIT 25.5 % (42.0-52.0); HGB - HEMOGLOBIN 8.2 g/dL (14.0-18.0); LYMPHOCYTES % (AUTO) 9.6 %; MEAN CORPUSCULAR HEMOGLOBIN 30.7 pg (27.0-31.0); MEAN CORPUSCULAR HGB CONC 32.2 g/dL (32.0-36.0); MEAN CORPUSCULAR VOLUME 95.5 fL (80.0-94.0); MEAN PLATELET VOLUME 9.2 fL (7.4-11.4); MONOCYTES % (AUTO) 12.2 %; NEUTROPHILS % (AUTO) 75.7 %; PLT - PLATELET COUNT 208 10^3/uL (130-450); RED BLOOD COUNT 2.67 10^6/uL (4.70-6.10); WHITE BLOOD COUNT 15.8 x10^3/uL (4.8-10.8)
[2020-10-26 05:23] LABS: ABNORMAL LYMPHS % (MANUAL) 0 %; BAND NEUTROPHILS % (MANUAL) 0 %
[2020-10-26 05:35] LABS: CALCIUM 8.3 mg/dL (8.5-10.3); CREATININE 1.5 mg/dL (0.6-1.2); POTASSIUM 4.4 mmol/L (3.5-5.0)
[2020-10-26 05:55] LABS: FOLATE 19.46 ng/mL (5.90 - >24.8)
[2020-10-26 06:01] LABS: DIFFERENTIAL COMMENT MANUAL DIFFERENTIAL; LYMPHOCYTES # (MANUAL) 2.4 10^3/uL (1.5-3.5); LYMPHOCYTES % (MANUAL) 15 %; MONOCYTES # (MANUAL) 1.3 10^3/uL (0.0-1.0); NEUTROPHILS # (MANUAL) 12.2 10^3/uL (1.5-6.6); PLATELET ESTIMATE, MANUAL NORMAL (130-450,000) (NORMAL); RBC MORPHOLOGY (MULTIPLE) NORMAL APPEARANCE (NORMAL)
[2020-10-26] MEDS: MULTIVITAMIN W/MINERALS TABLET PO SCH (08:21)
[2020-10-26] MEDS: buPROPion SR 150 MG TABLET PO SCH ×2 (08:21→21:42)
[2020-10-26] MEDS: HEPARIN 5,000 UNIT/ML VIAL SUBQ SCH ×2 (08:21→21:42)
[2020-10-26] MEDS: FERROUS GLUCONATE 324 MG TABLET PO SCH (08:21)
[2020-10-26] MEDS: VENLAFAXINE 37.5 MG TABLET PO SCH ×2 (08:21→21:42)
[2020-10-26] MEDS ORDERED: HYDROmorphone 0.5 MG/0.5 ML SYRINGE IVP ONE (10:31)
--- NOTE | 2020-10-26 11:26 | CONSULTATION NOTE ---
Palliative Care Consultation - Referral Referring Provider: Agatha Ambrosio MD Time of Visit: 10:00-1130 Referral setting: Hospitalized patient Referral Reason: Goals of Care/ESLD - Information Sources Records reviewed: RN notes reviewed, Previous records reviewed History/Review of Systems obtained from: Patient, Nursing, Other (records; f/up with hospice staff) Exam limitations: Clinical condition (mild cognitive deficits; fluctuates but clearer today than previous visit) - History of Present Illness Brief History of Present Illness: This is a 50-year-old gentleman with end-stage liver disease with known alcohol cirrhosis, hepatocellular carcinoma, who has had recurrent ascites, multiple hospitalizations, multiple ED visits, and frequent interactions with healthcare system. He had been coming regulated [facility], and then transition to frequent visits to [facility], and on most recent [facility] admit was discharged to [facility] on 10/05 with the agreement for acceptance with hospice support. In follow-up with hospice team, patient continued to have challenging behaviors, But had been expressing interest in being comfortable and had agreed to hospice support. Staff had seen him mostly with intermittent confusion, though patient has had days where he has been clear, he was able to be more compliant with his medications though was very combative and unhappy with the staff. Patient reports he would "slip" to the floor and had to wait until they had adequate support to put him in the bed. He was unrealistic in the context he thought they should just use the lift, and follow-up it was a 4 person lift back into the bed. And staff had reported he actually thrown himself on the floor as a way to get attention. Patient was admitted to hospice with sacral wound, has had intermittent sacral wound secondary to sedentary and bedbound status, reports had healed after a couple of visits, but had been admitted with a severe right heel wound that they were watching. Prior to patient's admit to the hospital, patient had "thrown himself on the floor again" with increased injury now to his coccyx again with open wound, and left heel wound as well as abrasions. Patient had been insistent and going to the emergency room, this unable to stay on hospice as this is not consistent with agreed upon goals of care. Unfortunately patient continue has very little insight into the seriousness of his illness though see palliative care discussion today, he is able to have a discussion regarding does understand he is dying, is getting tired of all of this, and is hoping to have some quality of life before his end-of-life occurs. He is currently been admitted from the ED, they have been looking for placement as [facility] would not take him back secondary to his combative behaviors. Patient has been cooperative here at the hospital, and a little clear being compliant with medications. Unfortunately his wounds had continue to worsen, needing debridement and wound care, including surgical consult. Patient has had an MRI, does not show osteomyelitis, it did show a large disc extrusion at L5-S1 producing severe spinal and subarticular zone stenosis with probable impingement of the descending S1 nerve roots. Medical/Surgical History - Past Medical History Cardiovascular: reports: Hypertension, High cholesterol Respiratory: reports: Asthma Neuro: Peripheral neuropathy, Other (mild cognitive deficits) Endocrine/Autoimmune: reports: Type 2 diabetes GI: reports: Cirrhosis, Other (hepatocellular CA) : reports: Retention, Indwelling catheter HEENT: reports: Chronic vision loss Psych: reports: Depression, Anxiety Musculoskeletal: reports: Osteoarthritis, Fatigue, Chronic back pain Derm: reports: Psoriasis, Other (decub sacral; bilat heels) MRSA Hx?: No - Past Surgical History General: reports: Other (Numerous paracenteses) Ortho: reports: Arthroscopic surgery - Substance History Use: Uses substance without health or social issues: Tobacco (hx of 25 year smoking), Alcohol (beer; sober since prioir admit) Social History - Living Situation Living arrangement: Homeless Support System: Patient had been living at home with his mother, in subsidized housing, this was not going well given his noncompliance with medications, increasing care needs, and frequent falls. He was placed from last hospitalization to assisted living, at this point they will not accept him back. He does understand at this time he is looking at being placed, he would "prefer not to" go back to walking home but would be willing to. He does understand he cannot return to his mom's, that he cannot have his care needs met there. Medications/Allergies - Medications Active Medication List: Active Medications Albuterol (Albuterol Neb 2.5 Mg/3 Ml) 2.5 mg INH Q4H PRN PRN Reason: Wheezing Last Admin: 10/22/20 01:48 Dose: 2.5 mg Documented by: Bupropion HCl (Bupropion Sr 150 Mg Tablet) 150 mg PO BID [facility] Last Admin: 10/26/20 08:21 Dose: 150 mg Documented by: Ferrous Gluconate (Ferrous Gluconate 324 Mg Tablet) 324 mg PO DAILYWM [facility] Last Admin: 10/26/20 08:21 Dose: 324 mg Documented by: Heparin Sodium (Porcine) (Heparin 5,000 Unit/Ml Vial) 5,000 unit SUBQ BID [facility] Last Admin: 10/26/20 08:21 Dose: 5,000 unit Documented by: Hydromorphone HCl (Hydromorphone 0.5 Mg/0.5 Ml Syringe) 0.5 mg IVP Q2H PRN PRN Reason: PAIN Insulin Glargine (Insulin Glargine 300 Unit/3 Ml Pen) 35 unit SUBQ QPM [facility] Lactulose (Lactulose 10 Gm/15 Ml Bottle) 30 gm PO Q4H [facility] Last Admin: 10/26/20 08:22 Dose: 30 gm Documented by: Multivitamins/Minerals (Multivitamin W/Minerals Tablet) 1 tab PO DAILY [facility] Last Admin: 10/26/20 08:21 Dose: 1 tab Documented by: Ondansetron HCl (Ondansetron 4 Mg/2 Ml Vial) 4 mg IVP Q6HR PRN PRN Reason: Nausea / Vomiting Oxycodone HCl (Oxycodone 5 Mg Tablet) 5 mg PO Q4HR PRN PRN Reason: PAIN Last Admin: 10/26/20 08:21 Dose: 5 mg Documented by: Sodium Chloride (Sodium Chloride Flush 0.9% 10 Ml Syringe) 10 ml IVP PRN PRN PRN Reason: NEEDED PER PROVIDER ORDERS Sodium Chloride (Sodium Chloride Flush 0.9% 10 Ml Syringe) 10 ml IVP 0100,0900,1700 [facility] Last Admin: 10/26/20 08:22 Dose: 10 ml Documented by: Venlafaxine HCl (Venlafaxine 37.5 Mg Tablet) 37.5 mg PO BID [facility] Last Admin: 10/26/20 08:21 Dose: 37.5 mg Documented by: Albuterol Sulfate [Proair Hfa Inhaler] 1 - 2 puffs INH Q4H PRN 11/13/16 Insulin Glargine,Hum.rec.anlog [Basaglar Kwikpen U-100] 65 units SUBQ DAILY PM 11/13/16 Insulin Regular, Human [Humulin R] 5 - 20 units SUBQ TIDWM 11/13/16 buPROPion HCL [Bupropion HCl Sr] 150 mg PO BID 02/15/20 Venlafaxine ER [Effexor ER] 75 mg PO DAILY 09/15/20 - Allergies Allergies/Adverse Reactions: Allergies Allergy/AdvReac Type Severity Reaction Status Date / Time cantaloupe Allergy Anaphylaxis Verified 10/21/20 08:33 melon Allergy Anaphylaxis Verified 10/21/20 08:33 lisinopril AdvReac Respiratory Verified 10/21/20 08:33 Review of Systems - Constitutional Constitutional: reports: Fatigue, Weakness, Weight loss, Other (patient presents with temporal; UE and LE wasting) - Eyes Eyes: reports: Blurred vision, Vision loss, Other - Ears, Nose & Throat Ears, Nose & Throat: reports: Nosebleeds - Respiratory Respiratory: reports: SOB at rest - Gastrointestinal Gastrointestinal: reports: Abdominal distention, Bloating, Early satiety - Genitourinary Genitourinary: reports: Other (nagy catheter) - Musculoskeletal Musculoskeletal: reports: Back pain, Muscle aches, Stiffness, Muscle weakness, Other (bedbound since admit to ED) - Integumentary Integumentary: reports: Rash, Lesions, Dryness, Nail changes, Other (decubs) - Neurological Neurological: reports: General weakness, Dizziness, Numbness, Memory problems (noted fluctuations), Slurred speech - Psychiatric Psychiatric: reports: Depression, Anxiety, Behavior disturbances (intermittent; has been fluctuating) - Endocrine Endocrine: reports: Diabetes type 2 (poorly controlled) - Hematologic/Lymphatic Hematologic/Lymph: reports: Anemia (8.2), Bruising - All Other Systems All Other Systems: reports: Other (patient with poor memory and insight) Physical Exam - Vital Signs Vital Signs: Vital Signs x48h Temp Pulse Pulse Resp BP Pulse Ox 10/26/20 08:00 37.0 C 88 18 121/65 96 10/26/20 05:26 37.1 C 95 19 95 - Physical Exam General Appearance: positive: Alert, Mild distress (pain in coccyx; had debridement yestery) ENT: positive: No signs of dehydration Neck: positive: Trachea midline Respiratory: positive: No respiratory distress Abdomen: positive: Soft, Tenderness, Distended Skin: positive: Pallor, Dryness, Pressure wound (currently dressed; defer to wound care) Extremities: positive: Pedal edema Neurologic/Psychiatric: positive: Disoriented to time, Weakness, Depressed mood/affect, Flat affect Palliative Care - POLST Patient has POLST: Yes POLST Status: DNR, Selective Treatment (completed at visit) Pain: Pain worsening, Location (back/coccyx area) Performance Status: Patient is currently bedbound, had been mostly bedbound depending fluctuating on his cognitive status. They were able to get him intermittently into the wheelchair at the facility, if he was having a good day he could actually self propel. He was totally dependent on staff for ADLs. He was able to self feed. - Palliative Care Discussion: Patient does recall having met me before, did introduce myself as palliative care. My goal was to talk to him about CODE STATUS. I asked him what was his issue with the assisted living, reports that he did not like the way they treated patients, that it is left him laying there, and discussed that his perc eption was he was not too heavy, that he just slid off the bed, and he often "demanded it" to have 911 assist. We discussed kind of what his perception was, he did agree his health was worse, he did understand he was on hospice, with the focus on comfort, and the goal was to live his days as comfortable as possible. He was somewhat distressed as he was not getting his regular paracentesis, he pe rceived that he was bloated and it made him "nuts", but did understand he had a pending paracentesis prior to his admit scheduled with the medical director of grants. When asked how he understood him current situation and what his goals were he wanted to live a days as he could, "I had rather not " but did explain that he does have a "great respect for , he is not afraid of hell or heaven". He does believe he is pain for his poor choices, and does have some regret. He is getting tired of all of this, he is tired of being tagged and pulled, is tired of the persistent pain. When asked about his mother, he reports are out of communication, when asked to reflect what he thought this was about, he it is because she feels guilty cannot have him. Discussed about current goals were to look for placement, he understands this, when asked that he go back to [facility], he reports he prefers not to but does understand placement is difficult. We discussed if he would accept support from the hospice team on transition again, he does want to focus on comfort, but he would like treatment of symptoms and procedures and antibiotics but he does want to be comfortable end-of-life and have a comfortable but does not want things hastened. Patient does have little insight, definitely has mild cognitive deficits, but was able to express his goals, did understand when reflected that he was to be a DNR/allow natural , he still wanted some interventions which we could offer her to be comfortable, but did not understand he was moving towards an end-of-life process. Nurse Javi was in the room when patient signed a POLST and reviewed again goals and signature. Results - Lab Results Lab results reviewed: Yes Fish Bones: 10/26/20 05:03 10/26/20 05:03 Lab and Imaging Results: Lab Results x24hrs 10/26/20 10/26/20 10/26/20 Range/Units 07:27 05:03 05:03 WBC (4.8-10.8) x10^3/uL RBC (4.70-6.10) 10^6/uL Hgb (14.0-18.0) g/dL Hct (42.0-52.0) % MCV (80.0-94.0) fL MCH (27.0-31.0) pg MCHC (32.0-36.0) g/dL RDW (12.0-15.0) % Plt Count (130-450) 10^3/uL MPV (7.4-11.4) fL Neut # (Auto) (1.5-6.6) 10^3/uL Lymph # (Auto) (1.5-3.5) 10^3/uL Trimble # (Auto) (0.0-1.0) 10^3/uL Eos # (Auto) (0.0-0.7) 10^3/uL Baso # (Auto) (0.0-0.1) 10^3/uL Absolute Nucleated RBC x10^3/uL Total Counted Band Neuts % (Manual) (0 - 10) % Abnorm Lymph % (Manual) % Nucleated RBC % /100WBC Neutrophils # (Manual) (1.5-6.6) 10^3/uL Lymphocytes # (Manual) (1.5-3.5) 10^3/uL Monocytes # (Manual) (0.0-1.0) 10^3/uL Eosinophils # (Manual) (0-0.7) 10^3/uL Basophils # (Manual) (0-0.1) 10^3/uL Differential Comment Platelet Estimate (NORMAL) RBC Morph Micro Appear (NORMAL) PT (9.9-12.6) secs INR (0.8-1.2) Sodium 132 L (135-145) mmol/L Potassium 4.4 (3.5-5.0) mmol/L Chloride 99 L (101-111) mmol/L Carbon Dioxide 23 (21-32) mmol/L Anion Gap 10.0 (6-13) BUN 65 H (6-20) mg/dL Creatinine 1.5 H (0.6-1.2) mg/dL Estimated GFR (MDRD) 49 L (>89) Glucose 138 H (70-100) mg/dL POC Whole Bld Glucose 112 H (70 - 100) mg/dL Lactic Acid (0.5-2.2) mmol/L Calcium 8.3 L (8.5-10.3) mg/dL Iron 30 L (45-182) ug/dL TIBC 186 L (250-450) ug/dL % Saturation 16 L (20-50) % Transferrin 133 L (180-329) mg/dL Total Bilirubin (0.2-1.0) mg/dL AST (10-42) IU/L ALT (10-60) IU/L Alkaline Phosphatase (42-121) IU/L Total Protein (6.7-8.2) g/dL Albumin (3.2-5.5) g/dL Globulin (2.1-4.2) g/dL Albumin/Globulin Ratio (1.0-2.2) Vitamin B12 2855 H (180-914) pg/mL Folate 19.46 (5.90 - >24.8) ng/mL 10/26/20 10/25/20 10/25/20 Range/Units 05:03 20:50 16:38 WBC 15.8 H (4.8-10.8) x10^3/uL RBC 2.67 L (4.70-6.10) 10^6/uL Hgb 8.2 L (14.0-18.0) g/dL Hct 25.5 L (42.0-52.0) % MCV 95.5 H (80.0-94.0) fL MCH 30.7 (27.0-31.0) pg MCHC 32.2 (32.0-36.0) g/dL RDW 15.0 (12.0-15.0) % Plt Count 208 (130-450) 10^3/uL MPV 9.2 (7.4-11.4) fL Neut # (Auto) Not Reportable (1.5-6.6) 10^3/uL Lymph # (Auto) Not Reportable (1.5-3.5) 10^3/uL Trimble # (Auto) Not Reportable (0.0-1.0) 10^3/uL Eos # (Auto) Not Reportable (0.0-0.7) 10^3/uL Baso # (Auto) Not Reportable (0.0-0.1) 10^3/uL Absolute Nucleated RBC Not Reportable x10^3/uL Total Counted 100 Band Neuts % (Manual) 0 (0 - 10) % Abnorm Lymph % (Manual) 0 % Nucleated RBC % Not Reportable /100WBC Neutrophils # (Manual) 12.2 H (1.5-6.6) 10^3/uL Lymphocytes # (Manual) 2.4 (1.5-3.5) 10^3/uL Monocytes # (Manual) 1.3 H (0.0-1.0) 10^3/uL Eosinophils # (Manual) 0.0 (0-0.7) 10^3/uL Basophils # (Manual) 0.0 (0-0.1) 10^3/uL Differential Comment MANUAL DIFFERENTIAL Platelet Estimate NORMAL (130-450,000) (NORMAL) RBC Morph Micro Appear NORMAL APPEARANCE (NORMAL) PT (9.9-12.6) secs INR (0.8-1.2) Sodium (135-145) mmol/L Potassium (3.5-5.0) mmol/L Chloride (101-111) mmol/L Carbon Dioxide (21-32) mmol/L Anion Gap (6-13) BUN (6-20) mg/dL Creatinine (0.6-1.2) mg/dL Estimated GFR (MDRD) (>89) Glucose (70-100) mg/dL POC Whole Bld Glucose 150 H 172 H (70 - 100) mg/dL Lactic Acid (0.5-2.2) mmol/L Calcium (8.5-10.3) mg/dL Iron (45-182) ug/dL TIBC (250-450) ug/dL % Saturation (20-50) % Transferrin (180-329) mg/dL Total Bilirubin (0.2-1.0) mg/dL AST (10-42) IU/L ALT (10-60) IU/L Alkaline Phosphatase (42-121) IU/L Total Protein (6.7-8.2) g/dL Albumin (3.2-5.5) g/dL Globulin (2.1-4.2) g/dL Albumin/Globulin Ratio (1.0-2.2) Vitamin B12 (180-914) pg/mL Folate (5.90 - >24.8) ng/mL 10/25/20 10/25/20 10/25/20 Range/Units 13:34 13:34 13:34 WBC 13.5 H (4.8-10.8) x10^3/uL RBC 2.76 L (4.70-6.10) 10^6/uL Hgb 8.8 L (14.0-18.0) g/dL Hct 26.2 L (42.0-52.0) % MCV 94.9 H (80.0-94.0) fL MCH 31.9 H (27.0-31.0) pg MCHC 33.6 (32.0-36.0) g/dL RDW 15.0 (12.0-15.0) % Plt Count 216 (130-450) 10^3/uL MPV 8.9 (7.4-11.4) fL Neut # (Auto) 10.3 H (1.5-6.6) 10^3/uL Lymph # (Auto) 1.0 L (1.5-3.5) 10^3/uL Trimble # (Auto) 1.9 H (0.0-1.0) 10^3/uL Eos # (Auto) 0.1 (0.0-0.7) 10^3/uL Baso # (Auto) 0.1 (0.0-0.1) 10^3/uL Absolute Nucleated RBC 0.00 x10^3/uL Total Counted Band Neuts % (Manual) (0 - 10) % Abnorm Lymph % (Manual) % Nucleated RBC % 0.0 /100WBC Neutrophils # (Manual) (1.5-6.6) 10^3/uL Lymphocytes # (Manual) (1.5-3.5) 10^3/uL Monocytes # (Manual) (0.0-1.0) 10^3/uL Eosinophils # (Manual) (0-0.7) 10^3/uL Basophils # (Manual) (0-0.1) 10^3/uL Differential Comment Platelet Estimate (NORMAL) RBC Morph Micro Appear 2+ ANISOCYTOSIS (NORMAL) PT (9.9-12.6) secs INR (0.8-1.2) Sodium 129 L (135-145) mmol/L Potassium 4.4 (3.5-5.0) mmol/L Chloride 97 L (101-111) mmol/L Carbon Dioxide 23 (21-32) mmol/L Anion Gap 9.0 (6-13) BUN 65 H (6-20) mg/dL Creatinine 1.5 H (0.6-1.2) mg/dL Estimated GFR (MDRD) 49 L (>89) Glucose 190 H (70-100) mg/dL POC Whole Bld Glucose (70 - 100) mg/dL Lactic Acid 2.1 (0.5-2.2) mmol/L Calcium 8.0 L (8.5-10.3) mg/dL Iron (45-182) ug/dL TIBC (250-450) ug/dL % Saturation (20-50) % Transferrin (180-329) mg/dL Total Bilirubin 2.7 H (0.2-1.0) mg/dL AST 29 (10-42) IU/L ALT 20 (10-60) IU/L Alkaline Phosphatase 125 H (42-121) IU/L Total Protein 5.9 L (6.7-8.2) g/dL Albumin 2.7 L (3.2-5.5) g/dL Globulin 3.2 (2.1-4.2) g/dL Albumin/Globulin Ratio 0.8 L (1.0-2.2) Vitamin B12 (180-914) pg/mL Folate (5.90 - >24.8) ng/mL 10/25/20 10/25/20 Range/Units 12:50 11:52 WBC (4.8-10.8) x10^3/uL RBC (4.70-6.10) 10^6/uL Hgb (14.0-18.0) g/dL Hct (42.0-52.0) % MCV (80.0-94.0) fL MCH (27.0-31.0) pg MCHC (32.0-36.0) g/dL RDW (12.0-15.0) % Plt Count (130-450) 10^3/uL MPV (7.4-11.4) fL Neut # (Auto) (1.5-6.6) 10^3/uL Lymph # (Auto) (1.5-3.5) 10^3/uL Trimble # (Auto) (0.0-1.0) 10^3/uL Eos # (Auto) (0.0-0.7) 10^3/uL Baso # (Auto) (0.0-0.1) 10^3/uL Absolute Nucleated RBC x10^3/uL Total Counted Band Neuts % (Manual) (0 - 10) % Abnorm Lymph % (Manual) % Nucleated RBC % /100WBC Neutrophils # (Manual) (1.5-6.6) 10^3/uL Lymphocytes # (Manual) (1.5-3.5) 10^3/uL Monocytes # (Manual) (0.0-1.0) 10^3/uL Eosinophils # (Manual) (0-0.7) 10^3/uL Basophils # (Manual) (0-0.1) 10^3/uL Differential Comment Platelet Estimate (NORMAL) RBC Morph Micro Appear (NORMAL) PT 17.1 H (9.9-12.6) secs INR 1.6 H (0.8-1.2) Sodium (135-145) mmol/L Potassium (3.5-5.0) mmol/L Chloride (101-111) mmol/L Carbon Dioxide (21-32) mmol/L Anion Gap (6-13) BUN (6-20) mg/dL Creatinine (0.6-1.2) mg/dL Estimated GFR (MDRD) (>89) Glucose (70-100) mg/dL POC Whole Bld Glucose 154 H (70 - 100) mg/dL Lactic Acid (0.5-2.2) mmol/L Calcium (8.5-10.3) mg/dL Iron (45-182) ug/dL TIBC (250-450) ug/dL % Saturation (20-50) % Transferrin (180-329) mg/dL Total Bilirubin (0.2-1.0) mg/dL AST (10-42) IU/L ALT (10-60) IU/L Alkaline Phosphatase (42-121) IU/L Total Protein (6.7-8.2) g/dL Albumin (3.2-5.5) g/dL Globulin (2.1-4.2) g/dL Albumin/Globulin Ratio (1.0-2.2) Vitamin B12 (180-914) pg/mL Folate (5.90 - >24.8) ng/mL Impression and Recommendations - Palliative Care Impression: Is a 50-year-old gentleman with end-stage liver disease, who continues to have high symptom burden of recurrent ascites, poor nutritional status and wasting, declining functional status, and fluctuating cognitive status. He now presents with worsening severe wounds, not unexpected given his underlying disease process and poor nutrition, patient at high risk for sequela of infection and further deterioration. Palliative care meeting with patient to define CODE STATUS and goals of care, also looking at setting rapport. Recommendations/Counseling Done: 1. End-stage liver disease. Patient much clear, most likely as a result of med compliance, monitoring food and fluid intake, and complying with care. Patient though has underlying hepatocellular cancer, has been declining both functionally and fluctuating cognitive decline. Patient presents with prognosis of most likely an weeks not months. 2. Advanced care planning. Meeting with patient, fortunately patient is fairly clear today, reviewed goals of care, particularly in the context of CODE STATUS given his fragile status, patient was able to have conversation regarding POLST, goals are to focus on comfort, treat symptoms, procedures for comfort and antibiotics and at end of life a comfortable . Patient understands he is a DNAR/DNI and this would not interfere with his ability to receive care, and in fact is still in agreement to consider hospice in the future. 90 minutes with greater than 50% of this with coordination of care with hospice/hospital team, counseling with patient, and review of records and recording of history.
[2020-10-26 12:21] LABS: ESTIMATED AVERAGE GLUCOSE 146 mg/dL (70-100); HEMOGLOBIN A1c% 6.7 % (4.27-6.07)
[2020-10-26] MEDS: HYDROmorphone 0.5 MG/0.5 ML SYRINGE IVP PRN (12:48)
[2020-10-26] MEDS: ONDANSETRON 4 MG/2 ML VIAL IVP PRN (12:48)
--- NOTE | 2020-10-26 14:59 | MRI Report ---
PROCEDURE: Ankle LT W/O INDICATIONS: SUSPECT HEEL OSTEOMYELITIS TECHNIQUE: Noncontrast Magnetic Resonance Imaging (MRI) of the ankle/hindfoot was performed utilizing the follow ing sequences: sagittal T1 spin echo, sagittal STIR, axial PD fast spin echo, axial STIR, coronal STI R, and coronal T1 spin echo. COMPARISON: None. FINDINGS: Image quality: Excellent. Bones and soft tissues: Skin irregularity seen at the posterior aspect of the heel with mild edema in the subcutaneous tissue s. No osseous edema or cortical obstruction is seen to suggest osteomyelitis. Mild degenerative crocker es are seen in the mortise joint with marginal osteophyte formation. There is cartilage loss at the l ateral talar dome with irregularity of the subchondral plate measuring 13 x 4 mm. No definite loose o steochondral fragment is seen. Mild degenerative changes also seen at the talonavicular and navicular cuneiform articulations. Fatty infiltration and edema within the intrinsic foot musculature is suspi cious for acute on chronic denervation changes and/or myositis. Small nonedematous os trigonum. Medial structures: The deltoid ligament and the spring ligament are intact. The posterior tibialis, flexor digitorum blayne jude, and flexor hallucis longus tendons are intact and within normal limits. The posterior tibial chevy rovascular bundle appears normal within the tarsal tunnel, without extrinsic mass effect. Lateral structures: The anterior and posterior distal tibiofibular ligaments are intact. Thickening in the anterior talof ibular ligament is compatible with a prior sprain/partial tear. The calcaneofibular and posterior adrienne ofibular ligaments are intact. The peroneus longus and peroneus brevis tendons are intact and otherwi se unremarkable. The sinus tarsi demonstrates normal fatty signal. Anterior structures: The tibialis anterior, extensor hallucis longus, and extensor digitorum longus tendons appear intact. Posterior and plantar structures: The Achilles tendon is intact. There is mild thickening of the proximal plantar fascia, consistent wi th chronic fasciitis. IMPRESSION: 1. Skin ulcer is seen at the posterior heel with mild subchondral edema. No focal fluid collection i s seen. There are no signs of osteomyelitis. 2. Edema and fatty infiltration of the intrinsic foot musculature is most likely related to acute on chronic denervation changes, but superimposed myositis may be present. 3. Chronic osteochondral lesion at the lateral talar dome with subchondral cystic changes. No defini te loose osteochondral fragment is seen. 4. Chronic low-grade sprain of the anterior talofibular ligament. 5. Mild chronic proximal plantar fasciitis. Reviewed by: Terry Malin MD on 10/26/2020 2:57 PM PDT Approved by: Terry Malin MD on 10/26/2020 2:57 PM PDT Station ID: [id number]
--- NOTE | 2020-10-26 15:07 | MRI Report ---
PROCEDURE: Ankle RT W/O INDICATIONS: SUSPEC HEEL OSTEOMYELITIS TECHNIQUE: Noncontrast Magnetic Resonance Imaging (MRI) of the ankle/hindfoot was performed utilizing the follow ing sequences: sagittal T1 spin echo, sagittal STIR, axial PD fast spin echo, axial T2 fast spin echo with fat saturation, coronal T2 spin echo with fat saturation, and coronal T1 spin echo. COMPARISON: None. FINDINGS: Image quality: Excellent. Bones and soft tissues: Skin irregularity is seen at the posterior heel with mild subcutaneous edema. No focal fluid collecti on is seen. There is no abnormal osseous edema or cortical destruction to suggest osteomyelitis. A ti ny 2 x 5 mm chronic osteochondral lesion is seen at the lateral talar dome. Mild degenerative changes are seen at the dorsal talonavicular joint. Small nonedematous os trigonum. Edema and fatty infiltra tion within the intrinsic foot musculature is most likely related to acute on chronic denervation shiva nges, though superimposed myositis is not excluded. Subcutaneous soft tissue edema is seen in the low er leg. Medial structures: The deltoid ligament and the spring ligament are intact. The posterior tibialis, flexor digitorum blayne jude, and flexor hallucis longus tendons are intact and within normal limits. The posterior tibial chevy rovascular bundle appears normal within the tarsal tunnel, without extrinsic mass effect. Lateral structures: The anterior and posterior distal tibiofibular ligaments are intact. Thickening of the anterior talof ibular ligament is compatible with a remote prior sprain. The calcaneofibular and posterior talofibul ar ligaments are intact. The peroneus longus and peroneus brevis tendons are intact and otherwise unremarkable. The sinus tarsi demonstrates normal fatty signal. Anterior structures: The tibialis anterior, extensor hallucis longus, and extensor digitorum longus tendons appear intact. Posterior and plantar structures: The Achilles tendon is intact. There is mild thickening of the proximal plantar fascia with mild jabier cent edema, which may indicate acute on chronic plantar fasciitis. IMPRESSION: 1. Posterior heel ulcer with mild subcutaneous edema. No signs of osteomyelitis. No focal abscess fo rmation. 2. Edema and fatty infiltration of the intrinsic foot musculature is most likely related to acute o n chronic denervation changes, but superimposed myositis is not excluded. 3. Chronic tiny osteochondral lesion at the lateral talar dome. No loose osteochondral fragment is s een. 4. Chronic low-grade sprain of the anterior talofibular ligament. 5. Mild plantar fasciitis, which may be chronic or acute on chronic. Reviewed by: Terry Malin MD on 10/26/2020 3:05 PM PDT Approved by: Terry Malin MD on 10/26/2020 3:05 PM PDT Station ID: [id number]
--- NOTE | 2020-10-26 16:36 | PROVIDER PROGRESS NOTE ---
Assessment/Plan - Problem List (1) Alcoholic liver failure Assessment/Plan: Continue with his lactulose frequent dosing and titrate to about 3 bowel movements per day which she is having. The ascites is currently not tense and will not plan scheduled paracenteses to resume. We will continue with any Spironolactone or fluid management as done most recently, after his med list is reconciled. Palliative Care saw him today and he was engaged and logical. He does wish to be a DNR. (2) Sacral pressure ulcer Qualifiers: Pressure injury stage: unspecified pressure injury stage Qualified Code(s): L89.159 - Pressure ulcer of sacral region, unspecified stage Assessment/Plan: Continue iv narcotic pain meds as needed, following the debridement. Lumbar MRI has ruled out osteomyelitis. Will continue with wet-to-dry dressings as recommended by the surgeon. Await blood cultures which were empirically drawn. Will consider IV antibiotics Appreciate Gen surg following along with us Apparently he was not out of bed much because he was on hospice care and comfort measures. Working on placement for retirement care vs return to Hospice Care (3) Heel ulceration Qualifiers: Non-pressure ulcer stage: unspecified non-pressure ulcer stage Assessment/Plan: Continue with bandaged (both) heels, dressing changes will be ordered by the surgeon. Consideration for transfer for higher level of care for plastic surgery, as discussed verbally with Dr Vizcarra yesterday MRI of both heels has ruled out osteomyelitis. Await results of blood cultures obtained empirically. Will potentially start antibiotics (4) Hyponatremia Assessment/Plan: Continue his 1800 cc free fluid per day restriction. We will not give IV saline hydration. Follow BMP daily or every other day (5) Diabetes mellitus with complication Assessment/Plan: This patient has peripheral neuropathy from the diabetes. We will continue with a carb controlled diet, his insulin doses and sliding scale management. (6) CKD (chronic kidney disease) Assessment/Plan: Stable creat at 1.5 daily Avoid nephrotoxins. Continue with free water fluid restriction but will not give saline hydration. Follow BMP daily or qod (7) Anemia Qualifiers: Anemia type: iron deficiency Assessment/Plan: Begin oral iron supplements. Follow hemoglobin daily or every other day (8) Anxiety and depression Assessment/Plan: Will continue his Wellbutrin - Current Meds Current Meds: Current Medications Generic Name Dose Route Start Last Admin Trade Name Freq PRN Reason Stop Dose Admin Albuterol 2.5 mg 10/22/20 01:37 10/22/20 01:48 Albuterol Neb 2.5 Mg/3 Ml INH 2.5 mg Q4H PRN Administration Wheezing Bupropion HCl 150 mg 10/22/20 02:00 10/26/20 08:21 Bupropion Sr 150 Mg Tablet PO 150 mg BID JOY Administration Ferrous Gluconate 324 mg 10/26/20 08:00 10/26/20 08:21 Ferrous Gluconate 324 Mg Tablet PO 324 mg DAILYWM JOY Administration Heparin Sodium (Porcine) 5,000 unit 10/25/20 21:00 10/26/20 08:21 Heparin 5,000 Unit/Ml Vial SUBQ 5,000 unit BID JOY Administration Hydromorphone HCl 0.5 mg 10/26/20 10:36 10/26/20 12:48 Hydromorphone 0.5 Mg/0.5 Ml Syringe IVP 0.5 mg Q2H PRN Administration PAIN Lactulose 30 gm 10/23/20 13:00 10/26/20 12:49 Lactulose 10 Gm/15 Ml Bottle PO 30 gm Q4H JOY Administration Multivitamins/Minerals 1 tab 10/26/20 09:00 10/26/20 08:21 Multivitamin W/Minerals Tablet PO 1 tab DAILY JOY Administration Ondansetron HCl 4 mg 10/25/20 12:29 10/26/20 12:48 Ondansetron 4 Mg/2 Ml Vial IVP 4 mg Q6HR PRN Administration Nausea / Vomiting Oxycodone HCl 5 mg 10/26/20 01:23 10/26/20 08:21 Oxycodone 5 Mg Tablet PO 5 mg Q4HR PRN Administration PAIN Sodium Chloride 10 ml 10/25/20 17:00 10/26/20 15:47 Sodium Chloride Flush 0.9% 10 Ml Syringe IVP 10 ml 0100,0900,1700 JOY Administration Venlafaxine HCl 37.5 mg 10/22/20 02:00 10/26/20 08:21 Venlafaxine 37.5 Mg Tablet PO 37.5 mg BID JOY Administration - Lab Result Fish Bone Diagrams: 10/26/20 05:03 10/26/20 05:03 - Additional Planning My Orders: My Active Orders 10/25/20 17:00 Sodium Chloride Flush 0.9% [Normal Saline Flush 0.9%] 10 ml IVP 0100,0900,1700 10/25/20 17:43 Code Status [OTHERS] Routine 10/25/20 21:00 Heparin [Heparin Sodium (Porcine)] 5,000 unit SUBQ BID 10/26/20 08:00 Ferrous Gluconate [Fergon] 324 mg PO DAILYWM 10/26/20 09:00 Multivitamin W/Minerals [Theragran M] 1 tab PO DAILY 10/26/20 10:36 HYDROmorphone 0.5MG SYRINGE [Dilaudid 0.5MG Syringe] 0.5 mg IVP Q2H PRN 10/26/20 21:00 Insulin Glargine [Lantus Solostar] 35 unit SUBQ QPM 10/27/20 05:00 BMP - BASIC METABOLIC PANEL [CHEM] DAILYLAB CBC - COMP BLD CT W/AUTO DIFF [HEME] DAILYLAB 10/28/20 05:00 BMP - BASIC METABOLIC PANEL [CHEM] DAILYLAB CBC - COMP BLD CT W/AUTO DIFF [HEME] DAILYLAB 10/29/20 05:00 BMP - BASIC METABOLIC PANEL [CHEM] DAILYLAB CBC - COMP BLD CT W/AUTO DIFF [HEME] DAILYLAB Subjective - Subjective Patient Reports: Resting Comfortably (He is sleeping flat on his back, no SOB.), No Complaints Objective Vital Signs: Vital Signs - 24 hr 10/26/20 10/26/20 10/26/20 00:59 05:26 08:00 Temperature 37.1 C 37.1 C 37.0 C Heart Rate 95 Heart Rate [ 95 88 Radial] Respiratory 19 19 18 Rate Blood Pressure 114/67 121/65 [Right Brachial artery] O2 Saturation 95 95 96 Oxygen O2 Source Room air I&O (Last 24 Hrs): Intake and Output Totals x24h 10/24/20 10/25/20 10/26/20 23:59 23:59 23:59 Intake Total 420 390 Output Total 1050 400 620 Balance -1050 20 -230 General: Alert (When aroused) HEENT: Mucous membr. moist/pink, Other (Temporal wasting, ashen and icteric) Neck: Supple Neuro: Alert, Non Focal, Other (Somnolent) Cardiovascular: Regular rate Respiratory: No respiratory distress Abdomen: No tenderness, Other (Dostended, not tense) Extremities: No clubbing, No edema - Results Results: Laboratory Results WBC 15.8 x10^3/uL (4.8-10.8) H 10/26/20 05:03 RBC 2.67 10^6/uL (4.70-6.10) L 10/26/20 05:03 Hgb 8.2 g/dL (14.0-18.0) L 10/26/20 05:03 Hct 25.5 % (42.0-52.0) L 10/26/20 05:03 MCV 95.5 fL (80.0-94.0) H 10/26/20 05:03 MCH 30.7 pg (27.0-31.0) 10/26/20 05:03 MCHC 32.2 g/dL (32.0-36.0) 10/26/20 05:03 RDW 15.0 % (12.0-15.0) 10/26/20 05:03 Plt Count 208 10^3/uL (130-450) 10/26/20 05:03 MPV 9.2 fL (7.4-11.4) 10/26/20 05:03 Neut # (Auto) Not Reportable 10/26/20 05:03 Lymph # (Auto) Not Reportable 10/26/20 05:03 [place] # (Auto) Not Reportable 10/26/20 05:03 Eos # (Auto) Not Reportable 10/26/20 05:03 Baso # (Auto) Not Reportable 10/26/20 05:03 Absolute Nucleated RBC Not Reportable 10/26/20 05:03 Total Counted 100 10/26/20 05:03 Band Neuts % (Manual) 0 % (0-10) 10/26/20 05:03 Abnorm Lymph % (Manual) 0 % 10/26/20 05:03 Nucleated RBC % Not Reportable 10/26/20 05:03 Neutrophils # (Manual) 12.2 10^3/uL (1.5-6.6) H 10/26/20 05:03 Lymphocytes # (Manual) 2.4 10^3/uL (1.5-3.5) 10/26/20 05:03 Monocytes # (Manual) 1.3 10^3/uL (0.0-1.0) H 10/26/20 05:03 Eosinophils # (Manual) 0.0 10^3/uL (0-0.7) 10/26/20 05:03 Basophils # (Manual) 0.0 10^3/uL (0-0.1) 10/26/20 05:03 Differential Comment MANUAL DIFFERENTIAL 10/26/20 05:03 Manual Slide Review Indicated 10/24/20 17:59 Platelet Estimate NORMAL (130-450,000) (NORMAL) 10/26/20 05:03 RBC Morph Micro Appear NORMAL APPEARANCE (NORMAL) 10/26/20 05:03 ESR 65 mm/Hr (0-20) H 10/24/20 17:59 PT 17.1 secs (9.9-12.6) H 10/25/20 12:50 INR 1.6 (0.8-1.2) H 10/25/20 12:50 Sodium 132 mmol/L (135-145) L 10/26/20 05:03 Potassium 4.4 mmol/L (3.5-5.0) 10/26/20 05:03 Chloride 99 mmol/L (101-111) L 10/26/20 05:03 Carbon Dioxide 23 mmol/L (21-32) 10/26/20 05:03 Anion Gap 10.0 (6-13) 10/26/20 05:03 BUN 65 mg/dL (6-20) H 10/26/20 05:03 Creatinine 1.5 mg/dL (0.6-1.2) H 10/26/20 05:03 Estimated GFR (MDRD) 49 (>89) L 10/26/20 05:03 Glucose 138 mg/dL (70-100) H 10/26/20 05:03 POC Whole Bld Glucose 92 mg/dL (70 - 100) 10/26/20 12:20 Estimat Average Glucose 146 mg/dL (70-100) H 10/26/20 05:03 Hemoglobin A1c % 6.7 % (4.27-6.07) H 10/26/20 05:03 Lactic Acid 2.1 mmol/L (0.5-2.2) 10/25/20 13:34 Calcium 8.3 mg/dL (8.5-10.3) L 10/26/20 05:03 Magnesium 2.7 mg/dL (1.7-2.8) 10/21/20 08:50 Iron 30 ug/dL (45-182) L 10/26/20 05:03 TIBC 186 ug/dL (250-450) L 10/26/20 05:03 % Saturation 16 % (20-50) L 10/26/20 05:03 Transferrin 133 mg/dL (180-329) L 10/26/20 05:03 Total Bilirubin 2.7 mg/dL (0.2-1.0) H 10/25/20 13:34 AST 29 IU/L (10-42) 10/25/20 13:34 ALT 20 IU/L (10-60) 10/25/20 13:34 Alkaline Phosphatase 125 IU/L (42-121) H 10/25/20 13:34 Ammonia 68.0 umol/L (7-35) H 10/21/20 08:50 C-Reactive Protein 13.1 mg/dL (0-1.0) H 10/24/20 17:59 Total Protein 5.9 g/dL (6.7-8.2) L 10/25/20 13:34 Albumin 2.7 g/dL (3.2-5.5) L 10/25/20 13:34 Globulin 3.2 g/dL (2.1-4.2) 10/25/20 13:34 Albumin/Globulin Ratio 0.8 (1.0-2.2) L 10/25/20 13:34 Lipase 47 U/L (22-51) 10/21/20 08:50 Vitamin B12 2855 pg/mL (180-914) H 10/26/20 05:03 Folate 19.46 ng/mL (5.90 - >24.8) 10/26/20 05:03 Nasal Adenovirus (PCR) NOT DETECTED 10/21/20 13:17 Nasal B. parapertussis DNA (PCR) NOT DETECTED 10/21/20 13:17 Nasal Coronavir 229E PCR NOT DETECTED 10/21/20 13:17 Nasal Coronavir HKU1 PCR NOT DETECTED 10/21/20 13:17 Nasal Coronavir NL63 PCR NOT DETECTED 10/21/20 13:17 Nasal Coronavir OC43 PCR NOT DETECTED 10/21/20 13:17 Nasal Enterovir/Rhinovir PCR NOT DETECTED 10/21/20 13:17 Nasal Influenza B PCR NOT DETECTED 10/21/20 13:17 Nasal Influenza A PCR NOT DETECTED 10/21/20 13:17 Nasal Parainfluen 1 PCR NOT DETECTED 10/21/20 13:17 Nasal Parainfluen 2 PCR NOT DETECTED 10/21/20 13:17 Nasal Parainfluen 3 PCR NOT DETECTED 10/21/20 13:17 Nasal Parainfluen 4 PCR NOT DETECTED 10/21/20 13:17 Nasal RSV (PCR) NOT DETECTED 10/21/20 13:17 Nasal B.pertussis DNA PCR NOT DETECTED 10/21/20 13:17 Nasal C.pneumoniae (PCR) NOT DETECTED 10/21/20 13:17 Natanael Human Metapneumo PCR NOT DETECTED 10/21/20 13:17 Nasal M.pneumoniae (PCR) NOT DETECTED 10/21/20 13:17 Nasal SARS-CoV-2 (PCR) NOT DETECTED 10/21/20 13:17 - Procedures Procedures: Procedures DRAINAGE OF PERITONEAL CAVITY, PERCUTANEOUS APPROACH (09/16/20)
[2020-10-26] MEDS ORDERED: INSULIN GLARGINE 300 UNIT/3 ML PEN SUBQ SCH (21:00)
[2020-10-27] MEDS: oxyCODONE 5 MG TABLET PO PRN ×3 (02:05→22:28)
[2020-10-27] MEDS: HYDROmorphone 0.5 MG/0.5 ML SYRINGE IVP PRN ×4 (02:06→21:41)
[2020-10-27] MEDS: LACTULOSE 10 GM/15 ML BOTTLE PO SCH ×5 (05:37→21:36)
[2020-10-27 06:16] LABS: BASOPHILS % (AUTO) 0.8 %; EOSINOPHILS % (AUTO) 2.6 %; HCT - HEMATOCRIT 25.4 % (42.0-52.0); HGB - HEMOGLOBIN 8.5 g/dL (14.0-18.0); LYMPHOCYTES % (AUTO) 9.8 %; MEAN CORPUSCULAR HEMOGLOBIN 32.1 pg (27.0-31.0); MEAN CORPUSCULAR HGB CONC 33.5 g/dL (32.0-36.0); MEAN CORPUSCULAR VOLUME 95.8 fL (80.0-94.0); MEAN PLATELET VOLUME 8.9 fL (7.4-11.4); MONOCYTES % (AUTO) 11.4 %; NEUTROPHILS % (AUTO) 74.2 %; PLT - PLATELET COUNT 242 10^3/uL (130-450); RED BLOOD COUNT 2.65 10^6/uL (4.70-6.10); WHITE BLOOD COUNT 17.3 x10^3/uL (4.8-10.8)
[2020-10-27 06:18] LABS: ABNORMAL LYMPHS % (MANUAL) 0 %; BAND NEUTROPHILS % (MANUAL) 0 %
[2020-10-27 06:24] LABS: CALCIUM 8.1 mg/dL (8.5-10.3); CREATININE 1.5 mg/dL (0.6-1.2); POTASSIUM 4.7 mmol/L (3.5-5.0)
[2020-10-27 06:33] LABS: BASOPHILS # (MANUAL) 0.2 10^3/uL (0-0.1); BASOPHILS % (MANUAL) 1 %; EOSINOPHILS # (MANUAL) 0.3 10^3/uL (0-0.7); LYMPHOCYTES # (MANUAL) 1.9 10^3/uL (1.5-3.5); LYMPHOCYTES % (MANUAL) 11 %; MONOCYTES # (MANUAL) 1.6 10^3/uL (0.0-1.0); NEUTROPHILS # (MANUAL) 13.3 10^3/uL (1.5-6.6)
[2020-10-27 06:34] LABS: DIFFERENTIAL COMMENT MANUAL DIFFERENTIAL; PLATELET ESTIMATE, MANUAL NORMAL (130-450,000) (NORMAL); PLATELET MORPHOLOGY NORMAL APPEARANCE (NORMAL); RBC MORPHOLOGY (MULTIPLE) NORMAL APPEARANCE (NORMAL); WBC MORPHOLOGY (MULTIPLE) NORMAL APPEARANCE (NORMAL)
[2020-10-27] MEDS: FERROUS GLUCONATE 324 MG TABLET PO SCH (07:45)
--- NOTE | 2020-10-27 08:22 | PROVIDER PROGRESS NOTE ---
Assessment/Plan - Problem List (1) Leukocytosis Assessment/Plan: His white blood count has been rising for the last 4 days from 12 to 13-15 and today is 17. No fever but he is developing a left shift on his differential. Will begin oral doxycycline to cover organisms for a sacral decubitus and heel ulcer infection. (2) Sacral pressure ulcer Qualifiers: Pressure injury stage: unspecified pressure injury stage Qualified Code(s): L89.159 - Pressure ulcer of sacral region, unspecified stage Assessment/Plan: Apparently he was not out of bed much because he was on hospice care and comfort measures. Continue iv narcotic pain meds as needed, following the debridement. Lumbar MRI has ruled out osteomyelitis. Will continue with wet-to-dry dressings as recommended by the surgeon. Await blood cultures which were empirically drawn. Starting Doxycycline po today Working on placement for fdc care vs return to Hospice Care (3) Heel ulceration Qualifiers: Non-pressure ulcer stage: unspecified non-pressure ulcer stage Assessment/Plan: Osteomyelitis was ruled out by MRI yesterday Continue with bandaged (both) heels, dressing changes will be ordered by the surgeon. as discussed verbally with Dr Vizcarra yesterday Await results of blood cultures obtained empirically. Starting oral doxycycline today (4) Alcoholic liver failure Assessment/Plan: Continue with his lactulose frequent dosing and titrate to about 3 bowel movements per day which she is having. The ascites is currently not tense and will not plan scheduled paracenteses to resume. Palliative Care provider, Harper Montiel NP, saw him yesterday and he was engaged and logical. He does wish to be a DNR. A POLST was signed yesterday. (5) Hyponatremia Assessment/Plan: Stable chronic Na of 130 Continue his 1800 cc free fluid per day restriction. We will not give IV saline hydration since he is euvolemic Follow BMP daily or every other day (6) Diabetes mellitus with complication Assessment/Plan: Hypoglycemia noted at about 2100. He is eating his meals poorly. His A1c is now 6.7. Will decrease and move his long-acting Insulin to morning. Nutrition (Shima) determined that he cannot sit up to eat because of sacral pain after debridement. Finger foods will be ordered. (7) CKD (chronic kidney disease) Assessment/Plan: Stable creat at 1.5 daily Avoid nephrotoxins. Continue with free water fluid restriction but will not give saline hydration. Follow BMP daily or qod (8) Anemia Qualifiers: Anemia type: iron deficiency Assessment/Plan: We ordered oral iron supplements. Follow hemoglobin daily or every other day (9) Anxiety and depression Assessment/Plan: Will continue his Wellbutrin - Current Meds Current Meds: Current Medications Generic Name Dose Route Start Last Admin Trade Name Freq PRN Reason Stop Dose Admin Albuterol 2.5 mg 10/22/20 01:37 10/22/20 01:48 Albuterol Neb 2.5 Mg/3 Ml INH 2.5 mg Q4H PRN Administration Wheezing Bupropion HCl 150 mg 10/22/20 02:00 10/26/20 21:42 Bupropion Sr 150 Mg Tablet PO 150 mg BID JOY Administration Ferrous Gluconate 324 mg 10/26/20 08:00 10/27/20 07:45 Ferrous Gluconate 324 Mg Tablet PO 324 mg DAILYWM JOY Administration Heparin Sodium (Porcine) 5,000 unit 10/25/20 21:00 10/26/20 21:42 Heparin 5,000 Unit/Ml Vial SUBQ 5,000 unit BID JOY Administration Hydromorphone HCl 0.5 mg 10/26/20 10:36 10/27/20 06:43 Hydromorphone 0.5 Mg/0.5 Ml Syringe IVP 0.5 mg Q2H PRN Administration PAIN Insulin Glargine 35 unit 10/26/20 21:00 10/26/20 21:42 Insulin Glargine 300 Unit/3 Ml Pen SUBQ 35 unit QPM JOY Administration Lactulose 30 gm 10/23/20 13:00 10/27/20 05:37 Lactulose 10 Gm/15 Ml Bottle PO 30 gm Q4H JOY Administration Multivitamins/Minerals 1 tab 10/26/20 09:00 10/26/20 08:21 Multivitamin W/Minerals Tablet PO 1 tab DAILY JOY Administration Ondansetron HCl 4 mg 10/25/20 12:29 10/26/20 12:48 Ondansetron 4 Mg/2 Ml Vial IVP 4 mg Q6HR PRN Administration Nausea / Vomiting Oxycodone HCl 5 mg 10/26/20 01:23 10/27/20 02:05 Oxycodone 5 Mg Tablet PO 5 mg Q4HR PRN Administration PAIN Sodium Chloride 10 ml 10/25/20 17:00 10/26/20 23:52 Sodium Chloride Flush 0.9% 10 Ml Syringe IVP 10 ml 0100,0900,1700 [facility] Administration Venlafaxine HCl 37.5 mg 10/22/20 02:00 10/26/20 21:42 Venlafaxine 37.5 Mg Tablet PO 37.5 mg BID JOY Administration - Lab Result Fish Bone Diagrams: 10/27/20 06:09 10/27/20 06:09 - Additional Planning My Orders: My Active Orders 10/26/20 08:00 Ferrous Gluconate [Fergon] 324 mg PO DAILYWM 10/26/20 09:00 Multivitamin W/Minerals [Theragran M] 1 tab PO DAILY 10/26/20 10:36 HYDROmorphone 0.5MG SYRINGE [Dilaudid 0.5MG Syringe] 0.5 mg IVP Q2H PRN 10/26/20 21:00 Insulin Glargine [Lantus Solostar] 35 unit SUBQ QPM 10/27/20 09:00 Doxycycline [Vibramycin] 100 mg PO BID 10/28/20 05:00 BMP - BASIC METABOLIC PANEL [CHEM] DAILYLAB CBC - COMP BLD CT W/AUTO DIFF [HEME] DAILYLAB 10/29/20 05:00 BMP - BASIC METABOLIC PANEL [CHEM] DAILYLAB CBC - COMP BLD CT W/AUTO DIFF [HEME] DAILYLAB Subjective - Subjective Patient Reports: Resting Comfortably, No Complaints Nursing Reports: Other (He Per RN: he mostly sleeps all day, eats, is compliant with taking his meds) Objective Vital Signs: Vital Signs - 24 hr 10/26/20 10/26/20 16:00 23:52 Temperature 36.8 C 36.8 C Heart Rate [ 87 92 Radial] Respiratory 20 18 Rate Blood Pressure 121/69 126/72 [Right Brachial artery] O2 Saturation 97 96 Oxygen O2 Source Room air I&O (Last 24 Hrs): Intake and Output Totals x24h 10/25/20 10/26/20 10/27/20 23:59 23:59 23:59 Intake Total 420 930 0 Output Total 400 870 275 Balance 20 60 -275 General: Alert, Oriented x3 HEENT: Mucous membr. moist/pink, Other (temporal wasting, locke ashen and icteric, unshaven and disheveled) Neuro: Alert, Non Focal Cardiovascular: No murmurs Respiratory: No respiratory distress, Breath sounds nml Abdomen: Soft, Other (Distended, not tense) Extremities: No edema (muscle wasting of UEs) - Results Results: Laboratory Results WBC 17.3 x10^3/uL (4.8-10.8) H 10/27/20 06:09 RBC 2.65 10^6/uL (4.70-6.10) L 10/27/20 06:09 Hgb 8.5 g/dL (14.0-18.0) L 10/27/20 06:09 Hct 25.4 % (42.0-52.0) L 10/27/20 06:09 MCV 95.8 fL (80.0-94.0) H 10/27/20 06:09 MCH 32.1 pg (27.0-31.0) H 10/27/20 06:09 MCHC 33.5 g/dL (32.0-36.0) 10/27/20 06:09 RDW 15.0 % (12.0-15.0) 10/27/20 06:09 Plt Count 242 10^3/uL (130-450) 10/27/20 06:09 MPV 8.9 fL (7.4-11.4) 10/27/20 06:09 Neut # (Auto) Not Reportable 10/27/20 06:09 Lymph # (Auto) Not Reportable 10/27/20 06:09 [place] # (Auto) Not Reportable 10/27/20 06:09 Eos # (Auto) Not Reportable 10/27/20 06:09 Baso # (Auto) Not Reportable 10/27/20 06:09 Absolute Nucleated RBC Not Reportable 10/27/20 06:09 Total Counted 100 10/27/20 06:09 Band Neuts % (Manual) 0 % (0-10) 10/27/20 06:09 Abnorm Lymph % (Manual) 0 % 10/27/20 06:09 Nucleated RBC % Not Reportable 10/27/20 06:09 Neutrophils # (Manual) 13.3 10^3/uL (1.5-6.6) H 10/27/20 06:09 Lymphocytes # (Manual) 1.9 10^3/uL (1.5-3.5) 10/27/20 06:09 Monocytes # (Manual) 1.6 10^3/uL (0.0-1.0) H 10/27/20 06:09 Eosinophils # (Manual) 0.3 10^3/uL (0-0.7) 10/27/20 06:09 Basophils # (Manual) 0.2 10^3/uL (0-0.1) H 10/27/20 06:09 Differential Comment MANUAL DIFFERENTIAL 10/27/20 06:09 Manual Slide Review Indicated 10/24/20 17:59 WBC Morphology NORMAL APPEARANCE (NORMAL) 10/27/20 06:09 Platelet Estimate NORMAL (130-450,000) (NORMAL) 10/27/20 06:09 Platelet Morphology NORMAL APPEARANCE (NORMAL) 10/27/20 06:09 RBC Morph Micro Appear NORMAL APPEARANCE (NORMAL) 10/27/20 06:09 ESR 65 mm/Hr (0-20) H 10/24/20 17:59 PT 17.1 secs (9.9-12.6) H 10/25/20 12:50 INR 1.6 (0.8-1.2) H 10/25/20 12:50 Sodium 130 mmol/L (135-145) L 10/27/20 06:09 Potassium 4.7 mmol/L (3.5-5.0) 10/27/20 06:09 Chloride 97 mmol/L (101-111) L 10/27/20 06:09 Carbon Dioxide 24 mmol/L (21-32) 10/27/20 06:09 Anion Gap 9.0 (6-13) 10/27/20 06:09 BUN 68 mg/dL (6-20) H 10/27/20 06:09 Creatinine 1.5 mg/dL (0.6-1.2) H 10/27/20 06:09 Estimated GFR (MDRD) 49 (>89) L 10/27/20 06:09 Glucose 167 mg/dL (70-100) H 10/27/20 06:09 POC Whole Bld Glucose 147 mg/dL (70 - 100) H 10/27/20 07:30 Estimat Average Glucose 146 mg/dL (70-100) H 10/26/20 05:03 Hemoglobin A1c % 6.7 % (4.27-6.07) H 10/26/20 05:03 Lactic Acid 2.1 mmol/L (0.5-2.2) 10/25/20 13:34 Calcium 8.1 mg/dL (8.5-10.3) L 10/27/20 06:09 Magnesium 2.7 mg/dL (1.7-2.8) 10/21/20 08:50 Iron 30 ug/dL (45-182) L 10/26/20 05:03 TIBC 186 ug/dL (250-450) L 10/26/20 05:03 % Saturation 16 % (20-50) L 10/26/20 05:03 Transferrin 133 mg/dL (180-329) L 10/26/20 05:03 Total Bilirubin 2.7 mg/dL (0.2-1.0) H 10/25/20 13:34 AST 29 IU/L (10-42) 10/25/20 13:34 ALT 20 IU/L (10-60) 10/25/20 13:34 Alkaline Phosphatase 125 IU/L (42-121) H 10/25/20 13:34 Ammonia 68.0 umol/L (7-35) H 10/21/20 08:50 C-Reactive Protein 13.1 mg/dL (0-1.0) H 10/24/20 17:59 Total Protein 5.9 g/dL (6.7-8.2) L 10/25/20 13:34 Albumin 2.7 g/dL (3.2-5.5) L 10/25/20 13:34 Globulin 3.2 g/dL (2.1-4.2) 10/25/20 13:34 Albumin/Globulin Ratio 0.8 (1.0-2.2) L 10/25/20 13:34 Lipase 47 U/L (22-51) 10/21/20 08:50 Vitamin B12 2855 pg/mL (180-914) H 10/26/20 05:03 Folate 19.46 ng/mL (5.90 - >24.8) 10/26/20 05:03 Nasal Adenovirus (PCR) NOT DETECTED 10/21/20 13:17 Nasal B. parapertussis DNA (PCR) NOT DETECTED 10/21/20 13:17 Nasal Coronavir 229E PCR NOT DETECTED 10/21/20 13:17 Nasal Coronavir HKU1 PCR NOT DETECTED 10/21/20 13:17 Nasal Coronavir NL63 PCR NOT DETECTED 10/21/20 13:17 Nasal Coronavir OC43 PCR NOT DETECTED 10/21/20 13:17 Nasal Enterovir/Rhinovir PCR NOT DETECTED 10/21/20 13:17 Nasal Influenza B PCR NOT DETECTED 10/21/20 13:17 Nasal Influenza A PCR NOT DETECTED 10/21/20 13:17 Nasal Parainfluen 1 PCR NOT DETECTED 10/21/20 13:17 Nasal Parainfluen 2 PCR NOT DETECTED 10/21/20 13:17 Nasal Parainfluen 3 PCR NOT DETECTED 10/21/20 13:17 Nasal Parainfluen 4 PCR NOT DETECTED 10/21/20 13:17 Nasal RSV (PCR) NOT DETECTED 10/21/20 13:17 Nasal B.pertussis DNA PCR NOT DETECTED 10/21/20 13:17 Nasal C.pneumoniae (PCR) NOT DETECTED 10/21/20 13:17 Natanael Human Metapneumo PCR NOT DETECTED 10/21/20 13:17 Nasal M.pneumoniae (PCR) NOT DETECTED 10/21/20 13:17 Nasal SARS-CoV-2 (PCR) NOT DETECTED 10/21/20 13:17 - Procedures Procedures: Procedures DRAINAGE OF PERITONEAL CAVITY, PERCUTANEOUS APPROACH (09/16/20)
[2020-10-27] MEDS: DOXYCYCLINE 100 MG TABLET PO SCH ×2 (08:43→21:43)
[2020-10-27] MEDS: buPROPion SR 150 MG TABLET PO SCH ×2 (08:43→21:43)
[2020-10-27] MEDS: VENLAFAXINE 37.5 MG TABLET PO SCH ×2 (08:43→22:23)
[2020-10-27] MEDS: SODIUM CHLORIDE FLUSH 0.9% 10 ML SYRINGE IVP SCH ×2 (08:44→15:38)
[2020-10-27] MEDS: HEPARIN 5,000 UNIT/ML VIAL SUBQ SCH ×2 (08:44→21:43)
[2020-10-27] MEDS: MULTIVITAMIN W/MINERALS TABLET PO SCH (08:44)
[2020-10-27] MEDS: INSULIN ASPART 300 UNIT/3 ML PEN SUBQ SCH ×3 (12:45→21:42)
[2020-10-27] MEDS: SODIUM CHLORIDE FLUSH 0.9% 10 ML SYRINGE IVP PRN (21:41)
[2020-10-28] MEDS: LACTULOSE 10 GM/15 ML BOTTLE PO SCH ×6 (01:35→20:58)
[2020-10-28] MEDS: SODIUM CHLORIDE FLUSH 0.9% 10 ML SYRINGE IVP SCH ×3 (01:41→16:16)
[2020-10-28] MEDS: oxyCODONE 5 MG TABLET PO PRN ×3 (06:12→23:51)
[2020-10-28 07:02] LABS: BASOPHILS # (AUTO) 0.2 10^3/uL (0.0-0.1); BASOPHILS % (AUTO) 0.9 %; EOSINOPHILS # (AUTO) 0.4 10^3/uL (0.0-0.7); EOSINOPHILS % (AUTO) 1.9 %; HCT - HEMATOCRIT 27.9 % (42.0-52.0); HGB - HEMOGLOBIN 9.2 g/dL (14.0-18.0); LYMPHOCYTES # (AUTO) 1.3 10^3/uL (1.5-3.5); LYMPHOCYTES % (AUTO) 6.3 %; MEAN CORPUSCULAR HEMOGLOBIN 31.7 pg (27.0-31.0); MEAN CORPUSCULAR VOLUME 96.2 fL (80.0-94.0); MEAN PLATELET VOLUME 8.9 fL (7.4-11.4); MONOCYTES # (AUTO) 2.2 10^3/uL (0.0-1.0); MONOCYTES % (AUTO) 10.9 %; NEUTROPHILS # (AUTO) 16.1 10^3/uL (1.5-6.6); PLT - PLATELET COUNT 262 10^3/uL (130-450); RED CELL DISTRIBUTION WIDTH 14.7 % (12.0-15.0); WHITE BLOOD COUNT 20.3 x10^3/uL (4.8-10.8)
[2020-10-28 07:16] LABS: CALCIUM 8.5 mg/dL (8.5-10.3); CREATININE 1.5 mg/dL (0.6-1.2); POTASSIUM 4.9 mmol/L (3.5-5.0)
[2020-10-28 07:41] LABS: DIFFERENTIAL COMMENT MANUAL=AUTO DIFF; PLATELET ESTIMATE, MANUAL NORMAL (130-450,000) (NORMAL); PLATELET MORPHOLOGY NORMAL APPEARANCE (NORMAL); RBC MORPHOLOGY (MULTIPLE) NORMAL APPEARANCE (NORMAL); WBC MORPHOLOGY (MULTIPLE) NORMAL APPEARANCE (NORMAL)
[2020-10-28] MEDS: FERROUS GLUCONATE 324 MG TABLET PO SCH (07:56)
[2020-10-28] MEDS: INSULIN GLARGINE 300 UNIT/3 ML PEN SUBQ SCH (07:58)
[2020-10-28] MEDS: INSULIN ASPART 300 UNIT/3 ML PEN SUBQ SCH ×4 (07:59→20:57)
[2020-10-28] MEDS: SACCHAROMYCES BOULARDII 250 MG CAPSULE PO SCH ×2 (08:55→16:16)
[2020-10-28] MEDS: buPROPion SR 150 MG TABLET PO SCH ×2 (08:55→20:58)
[2020-10-28] MEDS: DOXYCYCLINE 100 MG TABLET PO SCH (08:55)
[2020-10-28] MEDS: MULTIVITAMIN W/MINERALS TABLET PO SCH (08:55)
[2020-10-28] MEDS: VENLAFAXINE 37.5 MG TABLET PO SCH ×2 (08:56→20:58)
[2020-10-28] MEDS: HEPARIN 5,000 UNIT/ML VIAL SUBQ SCH ×2 (08:56→21:00)
--- NOTE | 2020-10-28 09:07 | PROVIDER PROGRESS NOTE ---
Assessment/Plan - Problem List (1) Leukocytosis Assessment/Plan: His white blood count continues to increase daily, today is up to 20 with a left shift. The blood cultures drawn on 10/25/2020, the day of debridement, remain negative. We will stop his oral doxycycline and start IV Zosyn and IV Vanco, for skin and soft tissue Rx in a diabetic. (2) Sacral pressure ulcer Qualifiers: Pressure injury stage: unspecified pressure injury stage Qualified Code(s): L89.159 - Pressure ulcer of sacral region, unspecified stage Assessment/Plan: Apparently he was not out of bed much at [facility] for 6 weeks, because he was on Hospice care and comfort measures. Lumbar MRI has ruled out osteomyelitis. Blood cultures are neg to date Continue iv narcotic pain meds as needed, following the debridement. I spoke to the surgeon who did debridement, Dr. Aj Vizcarra by phone, he appreciated the description of the sacral wound and plans to do repeat debridement on Friday (today is Friday). He will place a different type of dressing which will not need daily changes so as not to inflict so much pain Will continue with wet-to-dry dressings daily for now. Antibx broadened today, as in #1 Working on placement for [facility] care vs return to Hospice Care (3) Heel ulceration Qualifiers: Non-pressure ulcer stage: unspecified non-pressure ulcer stage Assessment/Plan: Apparently he was not out of bed much at [facility] for 6 weeks, because he was on Hospice care and comfort measures. Bilateral heel MRIs have ruled out osteomyelitis. Continue with topical dressings. Antibiotics will be broadened, as in #1 (4) Alcoholic liver failure Assessment/Plan: Continue with his lactulose frequent dosing and titrate to about 3 bowel movements per day which she is having. The ascites is currently not tense and will not plan scheduled paracenteses to resume. Palliative Care provider, Harper Montiel NP, saw him and he was engaged and logical. He does wish to be a DNR. A POLST was signed (5) Hyponatremia Assessment/Plan: Stable chronic Na of 130 Continue his 1800 cc free fluid per day restriction. We will not give IV saline hydration since he is euvolemic Follow BMP daily or every other day (6) Diabetes mellitus with complication Assessment/Plan: He is eating his meals poorly. His A1c was now 6.7. We decreased and moved his long-acting Insulin to morning. Nutrition (Shima) determined that he cannot sit up to eat because of sacral pain after debridement. Finger foods will be ordered. (7) CKD (chronic kidney disease) Assessment/Plan: Stable creat at 1.5 Avoid nephrotoxins. Continue with free water fluid restriction but will not give saline hydration. Follow BMP daily or qod (8) Anemia Qualifiers: Anemia type: iron deficiency Assessment/Plan: We ordered oral iron supplements. Follow hemoglobin daily or every other day (9) Anxiety and depression Assessment/Plan: Will continue his Wellbutrin - Current Meds Current Meds: Current Medications Generic Name Dose Route Start Last Admin Trade Name Freq PRN Reason Stop Dose Admin Albuterol 2.5 mg 10/22/20 01:37 10/22/20 01:48 Albuterol Neb 2.5 Mg/3 Ml INH 2.5 mg Q4H PRN Administration Wheezing Bupropion HCl 150 mg 10/22/20 02:00 10/28/20 08:55 Bupropion Sr 150 Mg Tablet PO 150 mg BID JOY Administration Ferrous Gluconate 324 mg 10/26/20 08:00 10/28/20 07:56 Ferrous Gluconate 324 Mg Tablet PO 324 mg DAILYWM JOY Administration Heparin Sodium (Porcine) 5,000 unit 10/25/20 21:00 10/28/20 08:56 Heparin 5,000 Unit/Ml Vial SUBQ 5,000 unit BID JOY Administration Hydromorphone HCl 0.5 mg 10/26/20 10:36 10/27/20 21:41 Hydromorphone 0.5 Mg/0.5 Ml Syringe IVP 0.5 mg Q2H PRN Administration PAIN Insulin Aspart 1 - 5 unit 10/27/20 12:00 10/28/20 07:59 Insulin Aspart 300 Unit/3 Ml Pen SUBQ 2 unit 0800,1200,1700,2100 JOY Administration Protocol Insulin Glargine 15 unit 10/28/20 08:00 10/28/20 07:58 Insulin Glargine 300 Unit/3 Ml Pen SUBQ 15 unit 0800 JOY Administration Lactulose 30 gm 10/23/20 13:00 10/28/20 08:56 Lactulose 10 Gm/15 Ml Bottle PO 30 gm Q4H JOY Administration Multivitamins/Minerals 1 tab 08/12/21 09:00 10/28/20 08:55 Multivitamin W/Minerals Tablet PO 1 tab DAILY JOY Administration Ondansetron HCl 4 mg 10/25/20 12:29 10/26/20 12:48 Ondansetron 4 Mg/2 Ml Vial IVP 4 mg Q6HR PRN Administration Nausea / Vomiting Oxycodone HCl 5 mg 10/26/20 01:23 10/28/20 06:12 Oxycodone 5 Mg Tablet PO 5 mg Q4HR PRN Administration PAIN Saccharomyces Boulardii 250 mg 10/28/20 08:00 10/28/20 08:55 Saccharomyces Boulardii 250 Mg Capsule PO 250 mg BIDWM JOY Administration Sodium Chloride 10 ml 10/25/20 12:29 10/27/20 21:41 Sodium Chloride Flush 0.9% 10 Ml Syringe IVP 10 ml PRN PRN Administration NEEDED PER PROVIDER ORDERS Sodium Chloride 10 ml 10/25/20 17:00 10/28/20 08:56 Sodium Chloride Flush 0.9% 10 Ml Syringe IVP 10 ml 0100,0900,1700 JOY Administration Venlafaxine HCl 37.5 mg 10/22/20 02:00 10/28/20 08:56 Venlafaxine 37.5 Mg Tablet PO 37.5 mg BID JOY Administration - Lab Result Fish Bone Diagrams: 10/28/20 06:54 10/28/20 06:54 - Additional Planning My Orders: My Active Orders 10/27/20 12:00 Insulin Aspart [NovoLOG] 1 - 5 unit SUBQ 0800,1200,1700,2100 10/27/20 Dinner Carb-controlled Diet [DIET] 10/28/20 08:00 Insulin Glargine [Lantus Solostar] 15 unit SUBQ 0800 10/28/20 09:05 Vancomycin: Pharmacy To Dose [Vancomycin-Pharmacy To Dose] 1 each ONCE PRN 10/28/20 10:00 Piperacillin/Tazobactam [Zosyn] 3.375 gm Sodium Chloride 0.9% Minibag [Normal Saline 0.9% Minibag] 100 ml IV Q6H 10/29/20 05:00 BMP - BASIC METABOLIC PANEL [CHEM] DAILYLAB CBC - COMP BLD CT W/AUTO DIFF [HEME] DAILYLAB Subjective - Subjective Patient Reports: Resting Comfortably Nursing Reports: Other (Sleepy the last 2 days. Hardly wakes up to eat his food. He is requiring Dilaudid for the sacral pain after debridement) Objective Vital Signs: Vital Signs - 24 hr 10/27/20 10/28/20 10/28/20 15:37 00:32 07:51 Temperature 36.4 C L 36.8 C 37.1 C Heart Rate [ 97 Brachial] Heart Rate [ 97 98 Radial] Respiratory 19 19 16 Rate Blood Pressure 103/71 123/72 112/68 [Right Brachial artery] O2 Saturation 95 96 95 Oxygen O2 Source Room air I&O (Last 24 Hrs): Intake and Output Totals x24h 10/26/20 10/27/20 10/28/20 23:59 23:59 23:59 Intake Total 930 1180 222 Output Total 870 825 300 Balance 60 355 -78 General: Other (Sleepy) HEENT: Mucous membr. moist/pink, Other (Ashen, icteric, temporal wasting) Neck: Supple Neuro: Alert, Other (Somnolent (after iv Dilaudid)) Cardiovascular: Regular rate Respiratory: No respiratory distress Abdomen: Soft, No tenderness, Other (Distended, not tense) Rectal: Other (sacral wound has black base) Extremities: Other (Both heel bandaged) - Results Results: Laboratory Results WBC 20.3 x10^3/uL (4.8-10.8) H 10/28/20 06:54 RBC 2.90 10^6/uL (4.70-6.10) L 10/28/20 06:54 Hgb 9.2 g/dL (14.0-18.0) L 10/28/20 06:54 Hct 27.9 % (42.0-52.0) L 10/28/20 06:54 MCV 96.2 fL (80.0-94.0) H 10/28/20 06:54 MCH 31.7 pg (27.0-31.0) H 10/28/20 06:54 MCHC 33.0 g/dL (32.0-36.0) 10/28/20 06:54 RDW 14.7 % (12.0-15.0) 10/28/20 06:54 Plt Count 262 10^3/uL (130-450) 10/28/20 06:54 MPV 8.9 fL (7.4-11.4) 10/28/20 06:54 Neut # (Auto) 16.1 10^3/uL (1.5-6.6) H 10/28/20 06:54 Lymph # (Auto) 1.3 10^3/uL (1.5-3.5) L 10/28/20 06:54 Dickens # (Auto) 2.2 10^3/uL (0.0-1.0) H 10/28/20 06:54 Eos # (Auto) 0.4 10^3/uL (0.0-0.7) 10/28/20 06:54 Baso # (Auto) 0.2 10^3/uL (0.0-0.1) H 10/28/20 06:54 Absolute Nucleated RBC 0.00 x10^3/uL 10/28/20 06:54 Total Counted 100 10/27/20 06:09 Band Neuts % (Manual) Not Reportable 10/28/20 06:54 Abnorm Lymph % (Manual) Not Reportable 10/28/20 06:54 Nucleated RBC % 0.0 /100WBC 10/28/20 06:54 Neutrophils # (Manual) Not Reportable 10/28/20 06:54 Lymphocytes # (Manual) Not Reportable 10/28/20 06:54 Monocytes # (Manual) Not Reportable 10/28/20 06:54 Eosinophils # (Manual) Not Reportable 10/28/20 06:54 Basophils # (Manual) Not Reportable 10/28/20 06:54 Differential Comment MANUAL=AUTO DIFF 10/28/20 06:54 Manual Slide Review Indicated 10/24/20 17:59 WBC Morphology NORMAL APPEARANCE (NORMAL) 10/28/20 06:54 Platelet Estimate NORMAL (130-450,000) (NORMAL) 10/28/20 06:54 Platelet Morphology NORMAL APPEARANCE (NORMAL) 10/28/20 06:54 RBC Morph Micro Appear NORMAL APPEARANCE (NORMAL) 10/28/20 06:54 ESR 65 mm/Hr (0-20) H 10/24/20 17:59 PT 17.1 secs (9.9-12.6) H 10/25/20 12:50 INR 1.6 (0.8-1.2) H 10/25/20 12:50 Sodium 133 mmol/L (135-145) L 10/28/20 06:54 Potassium 4.9 mmol/L (3.5-5.0) 10/28/20 06:54 Chloride 99 mmol/L (101-111) L 10/28/20 06:54 Carbon Dioxide 24 mmol/L (21-32) 10/28/20 06:54 Anion Gap 10.0 (6-13) 10/28/20 06:54 BUN 76 mg/dL (6-20) H 10/28/20 06:54 Creatinine 1.5 mg/dL (0.6-1.2) H 10/28/20 06:54 Estimated GFR (MDRD) 49 (>89) L 10/28/20 06:54 Glucose 196 mg/dL (70-100) H 10/28/20 06:54 POC Whole Bld Glucose 205 mg/dL (70 - 100) H 10/28/20 07:46 Estimat Average Glucose 146 mg/dL (70-100) H 10/26/20 05:03 Hemoglobin A1c % 6.7 % (4.27-6.07) H 10/26/20 05:03 Lactic Acid 2.1 mmol/L (0.5-2.2) 10/25/20 13:34 Calcium 8.5 mg/dL (8.5-10.3) 10/28/20 06:54 Magnesium 2.7 mg/dL (1.7-2.8) 10/21/20 08:50 Iron 30 ug/dL (45-182) L 10/26/20 05:03 TIBC 186 ug/dL (250-450) L 10/26/20 05:03 % Saturation 16 % (20-50) L 10/26/20 05:03 Transferrin 133 mg/dL (180-329) L 10/26/20 05:03 Total Bilirubin 2.7 mg/dL (0.2-1.0) H 10/25/20 13:34 AST 29 IU/L (10-42) 10/25/20 13:34 ALT 20 IU/L (10-60) 10/25/20 13:34 Alkaline Phosphatase 125 IU/L (42-121) H 10/25/20 13:34 Ammonia 68.0 umol/L (7-35) H 10/21/20 08:50 C-Reactive Protein 13.1 mg/dL (0-1.0) H 10/24/20 17:59 Total Protein 5.9 g/dL (6.7-8.2) L 10/25/20 13:34 Albumin 2.7 g/dL (3.2-5.5) L 10/25/20 13:34 Globulin 3.2 g/dL (2.1-4.2) 10/25/20 13:34 Albumin/Globulin Ratio 0.8 (1.0-2.2) L 10/25/20 13:34 Lipase 47 U/L (22-51) 10/21/20 08:50 Vitamin B12 2855 pg/mL (180-914) H 10/26/20 05:03 Folate 19.46 ng/mL (5.90 - >24.8) 10/26/20 05:03 Nasal Adenovirus (PCR) NOT DETECTED 10/21/20 13:17 Nasal B. parapertussis DNA (PCR) NOT DETECTED 10/21/20 13:17 Nasal Coronavir 229E PCR NOT DETECTED 10/21/20 13:17 Nasal Coronavir HKU1 PCR NOT DETECTED 10/21/20 13:17 Nasal Coronavir NL63 PCR NOT DETECTED 10/21/20 13:17 Nasal Coronavir OC43 PCR NOT DETECTED 10/21/20 13:17 Nasal Enterovir/Rhinovir PCR NOT DETECTED 10/21/20 13:17 Nasal Influenza B PCR NOT DETECTED 10/21/20 13:17 Nasal Influenza A PCR NOT DETECTED 10/21/20 13:17 Nasal Parainfluen 1 PCR NOT DETECTED 10/21/20 13:17 Nasal Parainfluen 2 PCR NOT DETECTED 10/21/20 13:17 Nasal Parainfluen 3 PCR NOT DETECTED 10/21/20 13:17 Nasal Parainfluen 4 PCR NOT DETECTED 10/21/20 13:17 Nasal RSV (PCR) NOT DETECTED 10/21/20 13:17 Nasal B.pertussis DNA PCR NOT DETECTED 10/21/20 13:17 Nasal C.pneumoniae (PCR) NOT DETECTED 10/21/20 13:17 Natanael Human Metapneumo PCR NOT DETECTED 10/21/20 13:17 Nasal M.pneumoniae (PCR) NOT DETECTED 10/21/20 13:17 Nasal SARS-CoV-2 (PCR) NOT DETECTED 10/21/20 13:17 - Procedures Procedures: Procedures DRAINAGE OF PERITONEAL CAVITY, PERCUTANEOUS APPROACH (09/16/20)
[2020-10-28] MEDS: PIPERACILLIN/TAZOBACTAM 3.375 GM in SODIUM CHLORIDE 0.9% MINIBAG 100 ML IV SCH ×3 (10:07→21:07)
[2020-10-28] MEDS ORDERED: VANCOMYCIN INJ 2 GM in SODIUM CHLORIDE 0.9% 500 ML IV ONE (12:00)
[2020-10-28] MEDS: HYDROmorphone 0.5 MG/0.5 ML SYRINGE IVP PRN ×2 (13:08→22:22)
[2020-10-28] MEDS: SODIUM CHLORIDE FLUSH 0.9% 10 ML SYRINGE IVP PRN (22:22)
[2020-10-28] MEDS: VANCOMYCIN INJ 1 GM, VANCOMYCIN INJ 500 MG in SODIUM CHLORIDE 0.9% 500 ML IV SCH (23:55)
[2020-10-29] MEDS: LACTULOSE 10 GM/15 ML BOTTLE PO SCH ×6 (00:02→17:33)
[2020-10-29] MEDS: SODIUM CHLORIDE FLUSH 0.9% 10 ML SYRINGE IVP PRN ×2 (04:23→17:34)
[2020-10-29] MEDS: PIPERACILLIN/TAZOBACTAM 3.375 GM in SODIUM CHLORIDE 0.9% MINIBAG 100 ML IV SCH ×4 (04:27→21:05)
[2020-10-29] MEDS: oxyCODONE 5 MG TABLET PO PRN ×2 (04:28→19:19)
[2020-10-29] MEDS: INSULIN ASPART 300 UNIT/3 ML PEN SUBQ SCH ×4 (07:55→20:45)
[2020-10-29] MEDS: INSULIN GLARGINE 300 UNIT/3 ML PEN SUBQ SCH (07:57)
[2020-10-29] MEDS: SACCHAROMYCES BOULARDII 250 MG CAPSULE PO SCH ×2 (07:58→16:46)
[2020-10-29] MEDS: FERROUS GLUCONATE 324 MG TABLET PO SCH (07:59)
[2020-10-29] MEDS: MULTIVITAMIN W/MINERALS TABLET PO SCH (08:27)
[2020-10-29] MEDS: VENLAFAXINE 37.5 MG TABLET PO SCH ×2 (08:27→20:48)
[2020-10-29] MEDS: buPROPion SR 150 MG TABLET PO SCH ×2 (08:27→20:48)
[2020-10-29] MEDS: HEPARIN 5,000 UNIT/ML VIAL SUBQ SCH ×2 (08:29→20:38)
[2020-10-29] MEDS: SODIUM CHLORIDE FLUSH 0.9% 10 ML SYRINGE IVP SCH ×3 (08:32→16:04)
[2020-10-29 08:34] LABS: BASOPHILS % (AUTO) 0.7 %; HCT - HEMATOCRIT 25.2 % (42.0-52.0); HGB - HEMOGLOBIN 8.3 g/dL (14.0-18.0); LYMPHOCYTES % (AUTO) 5.1 %; MEAN CORPUSCULAR HEMOGLOBIN 32.2 pg (27.0-31.0); MEAN CORPUSCULAR HGB CONC 32.9 g/dL (32.0-36.0); MEAN CORPUSCULAR VOLUME 97.7 fL (80.0-94.0); MEAN PLATELET VOLUME 9.1 fL (7.4-11.4); MONOCYTES % (AUTO) 10.1 %; PLT - PLATELET COUNT 234 10^3/uL (130-450); RED BLOOD COUNT 2.58 10^6/uL (4.70-6.10); RED CELL DISTRIBUTION WIDTH 14.8 % (12.0-15.0); WHITE BLOOD COUNT 21.3 x10^3/uL (4.8-10.8)
[2020-10-29 09:22] LABS: ALBUMIN 2.4 g/dL (3.2-5.5); ALBUMIN/GLOBULIN RATIO 0.7 (1.0-2.2); BILIRUBIN,TOTAL 2.4 mg/dL (0.2-1.0); CALCIUM 8.1 mg/dL (8.5-10.3); CREATININE 1.6 mg/dL (0.6-1.2); POTASSIUM 4.9 mmol/L (3.5-5.0); TOTAL PROTEIN 5.9 g/dL (6.7-8.2)
[2020-10-29 09:55] LABS: ABNORMAL LYMPHS % (MANUAL) 0 %
[2020-10-29 09:58] LABS: BAND NEUTROPHILS % (MANUAL) 2 %; BASOPHILS # (MANUAL) 0.2 10^3/uL (0-0.1); BASOPHILS % (MANUAL) 1 %; EOSINOPHILS # (MANUAL) 0.6 10^3/uL (0-0.7); LYMPHOCYTES # (MANUAL) 0.9 10^3/uL (1.5-3.5); LYMPHOCYTES % (MANUAL) 4 %; METAMYELOCYTES % (MANUAL) 1 %; MONOCYTES # (MANUAL) 1.5 10^3/uL (0.0-1.0); NEUTROPHILS # (MANUAL) 17.9 10^3/uL (1.5-6.6)
[2020-10-29 09:59] LABS: DIFFERENTIAL COMMENT MANUAL DIFFERENTIAL; RBC MORPHOLOGY (MULTIPLE) 1+ ANISOCYTOSIS (NORMAL)
[2020-10-29] MEDS: HYDROmorphone 0.5 MG/0.5 ML SYRINGE IVP PRN ×2 (11:09→17:34)
[2020-10-29] MEDS: VANCOMYCIN INJ 1 GM, VANCOMYCIN INJ 500 MG in SODIUM CHLORIDE 0.9% 500 ML IV SCH (12:01)
--- NOTE | 2020-10-29 15:25 | PROVIDER PROGRESS NOTE ---
Assessment/Plan - Problem List (1) Leukocytosis Assessment/Plan: White blood count increased to 20 yesterday, his p.o. doxycycline was stopped and he was put on IV Zosyn and Meissen. Today white blood count increased slightly to 21 and he again is lethargic. Continue with present plan for topical care of heel ulcers and sacral decubitus ulcer and these IV antibiotics. Follow CBC daily The General Surgeon, Dr. Vizcarra, indicated the tomorrow he would again do debridement of the sacral decubitus ulcer. there was no culture of a specimen from the initial debridement. (2) Sacral pressure ulcer Qualifiers: Pressure injury stage: unspecified pressure injury stage Qualified Code(s): L89.159 - Pressure ulcer of sacral region, unspecified stage Assessment/Plan: Apparently he was not out of bed much at [facility] for 6 weeks, because he was on Hospice care and comfort measures. Lumbar MRI has ruled out osteomyelitis. Blood cultures are neg to date Continue iv narcotic pain meds as needed, given just before daily wet to dry dressing changes by RN I spoke to the surgeon who did debridement and he plans to do repeat debridement on Friday (today is Friday). He will place a different type of dressing which will not need daily changes so as not to inflict so much pain Will continue with wet-to-dry dressings daily for now. Antibx broadened yesterday, as in #1 Working on placement for [facility] care vs return to Hospice Care (3) Heel ulceration Qualifiers: Non-pressure ulcer stage: unspecified non-pressure ulcer stage Assessment/Plan: Apparently he was not out of bed much at [facility] for 6 weeks, because he was on Hospice care and comfort measures. Bilateral heel MRIs have ruled out osteomyelitis. Continue with topical dressings. Antibiotics were broadened, as in #1 (4) Alcoholic liver failure Assessment/Plan: Continue with his lactulose frequent dosing and titrate to about 3 bowel movements per day which she is having. The ascites is currently not tense and will not plan scheduled paracenteses to resume. Palliative Care provider, Harper Montiel NP, saw him and he was engaged and logical. He does wish to be a DNR. A POLST was signed (5) Hyponatremia Assessment/Plan: Stable chronic Na of 130 Continue his 1800 cc free fluid per day restriction. We will not give IV saline hydration since he is euvolemic Follow BMP daily or every other day (6) Diabetes mellitus with complication Assessment/Plan: He is eating his meals poorly. His A1c was now 6.7. We decreased and moved his long-acting Insulin to morning. Nutrition (Shima) determined that he cannot sit up to eat because of sacral pain after debridement. Finger foods will be ordered. (7) CKD (chronic kidney disease) Assessment/Plan: Stable creat at 1.5 Avoid nephrotoxins. Continue with free water fluid restriction but will not give saline hydration. Follow BMP daily or qod (8) Anemia Qualifiers: Anemia type: iron deficiency Assessment/Plan: We ordered oral iron supplements. Follow hemoglobin daily or every other day (9) Anxiety and depression Assessment/Plan: Will continue his Wellbutrin - Current Meds Current Meds: Current Medications Generic Name Dose Route Start Last Admin Trade Name Freq PRN Reason Stop Dose Admin Albuterol 2.5 mg 10/22/20 01:37 10/22/20 01:48 Albuterol Neb 2.5 Mg/3 Ml INH 2.5 mg Q4H PRN Administration Wheezing Bupropion HCl 150 mg 10/22/20 02:00 10/29/20 08:27 Bupropion Sr 150 Mg Tablet PO 150 mg BID JOY Administration Ferrous Gluconate 324 mg 10/26/20 08:00 10/29/20 07:59 Ferrous Gluconate 324 Mg Tablet PO 324 mg DAILYWM JOY Administration Heparin Sodium (Porcine) 5,000 unit 10/25/20 21:00 10/29/20 08:29 Heparin 5,000 Unit/Ml Vial SUBQ 5,000 unit BID JOY Administration Hydromorphone HCl 0.5 mg 10/26/20 10:36 10/29/20 11:09 Hydromorphone 0.5 Mg/0.5 Ml Syringe IVP 0.5 mg Q2H PRN Administration PAIN Piperacillin Sod/Tazobactam 100 mls @ 200 mls/hr 10/28/20 10:00 10/29/20 10:20 Sod 3.375 gm/ Sodium Chloride IV Infused Q6H JOY Infusion Vancomycin HCl 1 gm/ 500 mls @ 250 mls/hr 10/29/20 00:00 10/29/20 14:05 Vancomycin HCl 500 mg/ Sodium IV Infused Chloride Q12H JOY Infusion Insulin Aspart 1 - 9 unit 10/28/20 21:00 10/29/20 12:00 Insulin Aspart 300 Unit/3 Ml Pen SUBQ 3 unit 0800,1200,1700,2100 JOY Administration Protocol Insulin Glargine 15 unit 10/28/20 08:00 10/29/20 07:57 Insulin Glargine 300 Unit/3 Ml Pen SUBQ 15 unit 0800 JOY Administration Lactulose 30 gm 10/23/20 13:00 10/29/20 13:40 Lactulose 10 Gm/15 Ml Bottle PO 30 gm Q4H JOY Administration Multivitamins/Minerals 1 tab 10/26/20 09:00 10/29/20 08:27 Multivitamin W/Minerals Tablet PO 1 tab DAILY JOY Administration Ondansetron HCl 4 mg 10/25/20 12:29 10/26/20 12:48 Ondansetron 4 Mg/2 Ml Vial IVP 4 mg Q6HR PRN Administration Nausea / Vomiting Oxycodone HCl 5 mg 10/26/20 01:23 10/29/20 04:28 Oxycodone 5 Mg Tablet PO 5 mg Q4HR PRN Administration PAIN Saccharomyces Boulardii 250 mg 10/28/20 08:00 10/29/20 07:58 Saccharomyces Boulardii 250 Mg Capsule PO 250 mg BIDWM JOY Administration Sodium Chloride 10 ml 10/25/20 12:29 10/29/20 04:23 Sodium Chloride Flush 0.9% 10 Ml Syringe IVP 10 ml PRN PRN Administration NEEDED PER PROVIDER ORDERS Sodium Chloride 10 ml 10/25/20 17:00 10/29/20 08:32 Sodium Chloride Flush 0.9% 10 Ml Syringe IVP 10 ml 0100,0900,1700 JOY Administration Venlafaxine HCl 37.5 mg 10/22/20 02:00 10/29/20 08:27 Venlafaxine 37.5 Mg Tablet PO 37.5 mg BID JOY Administration - Lab Result Fish Bone Diagrams: 11/02/20 08:10 11/02/20 08:10 - Additional Planning My Orders: My Active Orders 10/28/20 21:00 Insulin Aspart [NovoLOG] 1 - 9 unit SUBQ 0800,1200,1700,2100 10/29/20 00:00 Vancomycin Inj [Vancomycin] 1 gm Vancomycin Inj [Vancomycin Hcl] 500 mg Sodium Chloride 0.9% [Normal Saline 0.9%] 500 ml IV Q12H 10/30/20 05:00 AMMONIA [CHEM] DAILYLAB CMP [COMPREHENSIVE METABOLIC PANEL] [CHEM] DAILYLAB 10/31/20 05:00 CMP [COMPREHENSIVE METABOLIC PANEL] [CHEM] DAILYLAB Subjective - Subjective Patient Reports: Fatigue Nursing Reports: Other (Lays on his back, sleeps alot, needs to be repositioned to lay on his side) Objective Vital Signs: Vital Signs - 24 hr 10/28/20 10/29/20 10/29/20 16:11 00:19 04:53 Temperature 37 C 36.8 C 37.8 C Heart Rate [ 91 109 H 102 H Brachial] Respiratory 17 20 18 Rate Blood Pressure 140/86 H 139/82 H 122/67 [Right Brachial artery] O2 Saturation 95 94 94 10/29/20 07:51 Temperature 37.3 C Heart Rate [ 98 Brachial] Respiratory 20 Rate Blood Pressure 122/67 [Right Brachial artery] O2 Saturation 95 Oxygen O2 Source Room air I&O (Last 24 Hrs): Intake and Output Totals x24h 10/27/20 10/28/20 10/29/20 23:59 23:59 23:59 Intake Total 1180 3298 1790 Output Total 825 850 650 Balance 355 2448 1140 General: Other (Lethargic, sleeping) HEENT: Mucous membr. moist/pink, Other (Disheveled, tempral wasting, ashen and icteric) Neck: Supple Neuro: Non Focal, Other (Lethargic) Cardiovascular: Regular rate Respiratory: No respiratory distress Abdomen: Soft (Distended but not tense) Extremities: Other (Heels are bandaged) - Results Results: Laboratory Results WBC 21.3 x10^3/uL (4.8-10.8) H 10/29/20 08:15 RBC 2.58 10^6/uL (4.70-6.10) L 10/29/20 08:15 Hgb 8.3 g/dL (14.0-18.0) L 10/29/20 08:15 Hct 25.2 % (42.0-52.0) L 10/29/20 08:15 MCV 97.7 fL (80.0-94.0) H 10/29/20 08:15 MCH 32.2 pg (27.0-31.0) H 10/29/20 08:15 MCHC 32.9 g/dL (32.0-36.0) 10/29/20 08:15 RDW 14.8 % (12.0-15.0) 10/29/20 08:15 Plt Count 234 10^3/uL (130-450) 10/29/20 08:15 MPV 9.1 fL (7.4-11.4) 10/29/20 08:15 Neut # (Auto) Not Reportable 10/29/20 08:15 Lymph # (Auto) Not Reportable 10/29/20 08:15 Wilkinson # (Auto) Not Reportable 10/29/20 08:15 Eos # (Auto) Not Reportable 10/29/20 08:15 Baso # (Auto) Not Reportable 10/29/20 08:15 Absolute Nucleated RBC Not Reportable 10/29/20 08:15 Total Counted 100 10/29/20 08:15 Band Neuts % (Manual) 2 % (0-10) 10/29/20 08:15 Abnorm Lymph % (Manual) 0 % 10/29/20 08:15 Metamyelocytes % 1 % (-0) H 10/29/20 08:15 Nucleated RBC % Not Reportable 10/29/20 08:15 Neutrophils # (Manual) 17.9 10^3/uL (1.5-6.6) H 10/29/20 08:15 Lymphocytes # (Manual) 0.9 10^3/uL (1.5-3.5) L 10/29/20 08:15 Monocytes # (Manual) 1.5 10^3/uL (0.0-1.0) H 10/29/20 08:15 Eosinophils # (Manual) 0.6 10^3/uL (0-0.7) 10/29/20 08:15 Basophils # (Manual) 0.2 10^3/uL (0-0.1) H 10/29/20 08:15 Differential Comment MANUAL DIFFERENTIAL 10/29/20 08:15 Manual Slide Review Indicated 10/24/20 17:59 WBC Morphology NORMAL APPEARANCE (NORMAL) 10/28/20 06:54 Platelet Estimate NORMAL (130-450,000) (NORMAL) 10/28/20 06:54 Platelet Morphology NORMAL APPEARANCE (NORMAL) 10/28/20 06:54 RBC Morph Micro Appear 1+ ANISOCYTOSIS (NORMAL) 10/29/20 08:15 ESR 65 mm/Hr (0-20) H 10/24/20 17:59 PT 17.1 secs (9.9-12.6) H 10/25/20 12:50 INR 1.6 (0.8-1.2) H 10/25/20 12:50 Sodium 133 mmol/L (135-145) L 10/29/20 08:15 Potassium 4.9 mmol/L (3.5-5.0) 10/29/20 08:15 Chloride 99 mmol/L (101-111) L 10/29/20 08:15 Carbon Dioxide 24 mmol/L (21-32) 10/29/20 08:15 Anion Gap 10.0 (6-13) 10/29/20 08:15 BUN 81 mg/dL (6-20) H* 10/29/20 08:15 Creatinine 1.6 mg/dL (0.6-1.2) H 10/29/20 08:15 Estimated GFR (MDRD) 46 (>89) L 10/29/20 08:15 Glucose 275 mg/dL (70-100) H 10/29/20 08:15 POC Whole Bld Glucose 223 mg/dL (70 - 100) H 10/29/20 11:22 Estimat Average Glucose 146 mg/dL (70-100) H 10/26/20 05:03 Hemoglobin A1c % 6.7 % (4.27-6.07) H 10/26/20 05:03 Lactic Acid 1.4 mmol/L (0.5-2.2) 10/28/20 09:54 Calcium 8.1 mg/dL (8.5-10.3) L 10/29/20 08:15 Magnesium 2.7 mg/dL (1.7-2.8) 10/21/20 08:50 Iron 30 ug/dL (45-182) L 10/26/20 05:03 TIBC 186 ug/dL (250-450) L 10/26/20 05:03 % Saturation 16 % (20-50) L 10/26/20 05:03 Transferrin 133 mg/dL (180-329) L 10/26/20 05:03 Total Bilirubin 2.4 mg/dL (0.2-1.0) H 10/29/20 08:15 AST 26 IU/L (10-42) 10/29/20 08:15 ALT 16 IU/L (10-60) 10/29/20 08:15 Alkaline Phosphatase 137 IU/L (42-121) H 10/29/20 08:15 Ammonia 68.0 umol/L (7-35) H 10/21/20 08:50 C-Reactive Protein 13.1 mg/dL (0-1.0) H 10/24/20 17:59 Total Protein 5.9 g/dL (6.7-8.2) L 10/29/20 08:15 Albumin 2.4 g/dL (3.2-5.5) L 10/29/20 08:15 Globulin 3.5 g/dL (2.1-4.2) 10/29/20 08:15 Albumin/Globulin Ratio 0.7 (1.0-2.2) L 10/29/20 08:15 Lipase 47 U/L (22-51) 10/21/20 08:50 Vitamin B12 2855 pg/mL (180-914) H 10/26/20 05:03 Folate 19.46 ng/mL (5.90 - >24.8) 10/26/20 05:03 Nasal Adenovirus (PCR) NOT DETECTED 10/21/20 13:17 Nasal B. parapertussis DNA (PCR) NOT DETECTED 10/21/20 13:17 Nasal Coronavir 229E PCR NOT DETECTED 10/21/20 13:17 Nasal Coronavir HKU1 PCR NOT DETECTED 10/21/20 13:17 Nasal Coronavir NL63 PCR NOT DETECTED 10/21/20 13:17 Nasal Coronavir OC43 PCR NOT DETECTED 10/21/20 13:17 Nasal Enterovir/Rhinovir PCR NOT DETECTED 10/21/20 13:17 Nasal Influenza B PCR NOT DETECTED 10/21/20 13:17 Nasal Influenza A PCR NOT DETECTED 10/21/20 13:17 Nasal Parainfluen 1 PCR NOT DETECTED 10/21/20 13:17 Nasal Parainfluen 2 PCR NOT DETECTED 10/21/20 13:17 Nasal Parainfluen 3 PCR NOT DETECTED 10/21/20 13:17 Nasal Parainfluen 4 PCR NOT DETECTED 10/21/20 13:17 Nasal RSV (PCR) NOT DETECTED 10/21/20 13:17 Nasal B.pertussis DNA PCR NOT DETECTED 10/21/20 13:17 Nasal C.pneumoniae (PCR) NOT DETECTED 10/21/20 13:17 Natanael Human Metapneumo PCR NOT DETECTED 10/21/20 13:17 Nasal M.pneumoniae (PCR) NOT DETECTED 10/21/20 13:17 Nasal SARS-CoV-2 (PCR) NOT DETECTED 10/21/20 13:17 - Procedures Procedures: Procedures DRAINAGE OF PERITONEAL CAVITY, PERCUTANEOUS APPROACH (09/16/20) ABX Reporting Has patient been on IV antibiotics over the past 48 hours?: Yes
[2020-10-29] MEDS ORDERED: SODIUM CHLORIDE 0.9% 1,000 ML IV SCH (18:00)
[2020-10-30] MEDS: VANCOMYCIN INJ 1 GM, VANCOMYCIN INJ 500 MG in SODIUM CHLORIDE 0.9% 500 ML IV SCH (00:25)
[2020-10-30] MEDS: SODIUM CHLORIDE FLUSH 0.9% 10 ML SYRINGE IVP SCH ×3 (00:25→17:04)
[2020-10-30] MEDS: LACTULOSE 10 GM/15 ML BOTTLE PO SCH ×4 (00:26→18:17)
[2020-10-30] MEDS: HYDROmorphone 0.5 MG/0.5 ML SYRINGE IVP PRN ×4 (00:29→21:22)
[2020-10-30] MEDS: oxyCODONE 5 MG TABLET PO PRN ×3 (00:29→18:38)
[2020-10-30] MEDS: PIPERACILLIN/TAZOBACTAM 3.375 GM in SODIUM CHLORIDE 0.9% MINIBAG 100 ML IV SCH ×4 (04:30→22:20)
[2020-10-30 06:25] LABS: BASOPHILS # (AUTO) 0.1 10^3/uL (0.0-0.1); BASOPHILS % (AUTO) 0.7 %; EOSINOPHILS # (AUTO) 0.4 10^3/uL (0.0-0.7); EOSINOPHILS % (AUTO) 2.7 %; HCT - HEMATOCRIT 24.9 % (42.0-52.0); LYMPHOCYTES % (AUTO) 6.7 %; MEAN CORPUSCULAR HEMOGLOBIN 31.1 pg (27.0-31.0); MEAN CORPUSCULAR HGB CONC 32.1 g/dL (32.0-36.0); MEAN CORPUSCULAR VOLUME 96.9 fL (80.0-94.0); MONOCYTES # (AUTO) 1.9 10^3/uL (0.0-1.0); MONOCYTES % (AUTO) 12.4 %; NEUTROPHILS # (AUTO) 11.6 10^3/uL (1.5-6.6); NEUTROPHILS % (AUTO) 76.5 %; PLT - PLATELET COUNT 223 10^3/uL (130-450); RED BLOOD COUNT 2.57 10^6/uL (4.70-6.10); RED CELL DISTRIBUTION WIDTH 14.9 % (12.0-15.0); WHITE BLOOD COUNT 15.1 x10^3/uL (4.8-10.8)
[2020-10-30 06:39] LABS: ALBUMIN 2.2 g/dL (3.2-5.5); ALBUMIN/GLOBULIN RATIO 0.6 (1.0-2.2); CALCIUM 8.2 mg/dL (8.5-10.3); CREATININE 1.5 mg/dL (0.6-1.2); POTASSIUM 4.5 mmol/L (3.5-5.0); TOTAL PROTEIN 5.9 g/dL (6.7-8.2)
[2020-10-30] MEDS: INSULIN ASPART 300 UNIT/3 ML PEN SUBQ SCH ×4 (08:20→21:28)
[2020-10-30] MEDS: INSULIN GLARGINE 300 UNIT/3 ML PEN SUBQ SCH (08:21)
[2020-10-30] MEDS: FERROUS GLUCONATE 324 MG TABLET PO SCH (08:22)
[2020-10-30] MEDS: SACCHAROMYCES BOULARDII 250 MG CAPSULE PO SCH ×2 (08:22→17:04)
[2020-10-30] MEDS: HEPARIN 5,000 UNIT/ML VIAL SUBQ SCH ×2 (10:04→21:29)
[2020-10-30] MEDS: VENLAFAXINE 37.5 MG TABLET PO SCH ×2 (10:07→21:26)
[2020-10-30] MEDS: MULTIVITAMIN W/MINERALS TABLET PO SCH (10:07)
[2020-10-30] MEDS: buPROPion SR 150 MG TABLET PO SCH ×2 (10:07→21:26)
--- NOTE | 2020-10-30 11:45 | PROVIDER PROGRESS NOTE ---
Assessment/Plan - Problem List (1) Leukocytosis Assessment/Plan: His WBC sunday to 21, today it is finally decreasing down to 15. Blood cx are neg to date. The source is his sacral decubitus. He has now been on broadened antibiotic coverage for 2-1/2 days. (2) Sacral pressure ulcer Qualifiers: Pressure injury stage: unspecified pressure injury stage Qualified Code(s): L89.159 - Pressure ulcer of sacral region, unspecified stage Assessment/Plan: The patient is being re-seen by General Surgeon along with a Wound Clinic RN (?Maddi). He did debridement of the sacrum and sent specimens for cult ure and packed in with Blue gel, which needs changes every week, not every day. Continue pain meds for his sacral pain. Continue iv antibx, because this is the presumed cause of high WBC. (3) Heel ulceration Qualifiers: Non-pressure ulcer stage: unspecified non-pressure ulcer stage Assessment/Plan: Dr Vizcarra and the Wound clinic RN planned blue gel for both heel ulcers that were debrided at the time of admission. (4) Alcoholic liver failure Assessment/Plan: Continue with his lactulose frequent dosing and ordered to titrate to about 3 bowel movements per day. With compliance of Lactulose he has been appropriate, engaging and conversant. He started having 4-6 watery Bms 2 days ago and was soiling his sacral wound dressing. Lactulose was decreased from q4h to q6h. The ascites is currently not tense and will not plan scheduled paracenteses to resume. Twivce weekly paracenteses stopped hankins he was livibg at [facility] (so for 6-7 weeks now) He is getting oral Thiamine Palliative Care provider, Harper Montiel NP, saw him and he was engaged and logical. He does wish to be a DNR. A POLST was signed (5) Hyponatremia Assessment/Plan: Stable chronic Na of 130-134 Continue his 1800 cc free fluid per day restriction. He got 1L of NS yesterday and will give 1 more L today. Follow BMP daily or every other day (6) Diabetes mellitus with complication Assessment/Plan: His A1c was now 6.7. He is eating his meals poorly. We are adjusting and moved his hs long-acting Insulin to morning. Nutrition (Shima) determined that he cannot sit up to eat because of sacral pain after debridement. Finger foods will be ordered. (7) CKD (chronic kidney disease) Assessment/Plan: BUN/creat have been very elevated recently, likely due to no continuous iv hydration and free fluid restriction. Avoid nephrotoxins. He got 1L iv fluid yesterday and will give 1 more L of saline today. Follow BMP daily or qod (8) Anemia Qualifiers: Anemia type: iron deficiency Assessment/Plan: We started him on oral iron supplements. Follow hemoglobin daily or every other day (9) Anxiety and depression Assessment/Plan: We are continuing his Wellbutrin - Current Meds Current Meds: Current Medications Generic Name Dose Route Start Last Admin Trade Name Freq PRN Reason Stop Dose Admin Albuterol 2.5 mg 10/22/20 01:37 10/22/20 01:48 Albuterol Neb 2.5 Mg/3 Ml INH 2.5 mg Q4H PRN Administration Wheezing Bupropion HCl 150 mg 10/22/20 02:00 10/30/20 10:07 Bupropion Sr 150 Mg Tablet PO 150 mg BID JOY Administration Ferrous Gluconate 324 mg 10/26/20 08:00 10/30/20 08:22 Ferrous Gluconate 324 Mg Tablet PO 324 mg DAILYWM JOY Administration Heparin Sodium (Porcine) 5,000 unit 10/25/20 21:00 10/30/20 10:04 Heparin 5,000 Unit/Ml Vial SUBQ 5,000 unit BID JOY Administration Hydromorphone HCl 0.5 mg 10/26/20 10:36 10/30/20 10:25 Hydromorphone 0.5 Mg/0.5 Ml Syringe IVP 0.5 mg Q2H PRN Administration PAIN Piperacillin Sod/Tazobactam 100 mls @ 200 mls/hr 10/28/20 10:00 10/30/20 10:21 Sod 3.375 gm/ Sodium Chloride IV 200 mls/hr Q6H JOY Administration Vancomycin HCl 1 gm/ 500 mls @ 250 mls/hr 10/29/20 00:00 10/30/20 02:30 Vancomycin HCl 500 mg/ Sodium IV Infused Chloride Q12H JOY Infusion Insulin Aspart 2 - 10 unit 10/29/20 21:00 10/30/20 08:20 Insulin Aspart 300 Unit/3 Ml Pen SUBQ 6 unit 0800,1200,1700,2100 JOY Administration Protocol Insulin Glargine 15 unit 10/28/20 08:00 10/30/20 08:21 Insulin Glargine 300 Unit/3 Ml Pen SUBQ 15 unit 0800 JOY Administration Lactulose 30 gm 10/29/20 18:00 10/30/20 05:11 Lactulose 10 Gm/15 Ml Bottle PO Not Given Q6H JOY Multivitamins/Minerals 1 tab 10/26/20 09:00 10/30/20 10:07 Multivitamin W/Minerals Tablet PO 1 tab DAILY JOY Administration Ondansetron HCl 4 mg 10/25/20 12:29 10/26/20 12:48 Ondansetron 4 Mg/2 Ml Vial IVP 4 mg Q6HR PRN Administration Nausea / Vomiting Oxycodone HCl 5 mg 10/29/20 17:23 10/30/20 08:52 Oxycodone 5 Mg Tablet PO 5 mg Q6HR PRN Administration PAIN Saccharomyces Boulardii 250 mg 10/28/20 08:00 10/30/20 08:22 Saccharomyces Boulardii 250 Mg Capsule PO 250 mg BIDWM JOY Administration Sodium Chloride 10 ml 10/25/20 12:29 10/29/20 17:34 Sodium Chloride Flush 0.9% 10 Ml Syringe IVP 10 ml PRN PRN Administration NEEDED PER PROVIDER ORDERS Sodium Chloride 10 ml 10/25/20 17:00 10/30/20 10:23 Sodium Chloride Flush 0.9% 10 Ml Syringe IVP Not Given 0100,0900,1700 [facility] Venlafaxine HCl 37.5 mg 10/22/20 02:00 10/30/20 10:07 Venlafaxine 37.5 Mg Tablet PO 37.5 mg BID JOY Administration - Lab Result Fish Bone Diagrams: 10/30/20 06:12 10/30/20 06:12 - Additional Planning My Orders: My Active Orders 10/29/20 17:23 oxyCODONE [Roxicodone] 5 mg PO Q6HR PRN 10/29/20 18:00 Lactulose 30 gm PO Q6H 10/29/20 21:00 Insulin Aspart [NovoLOG] 2 - 10 unit SUBQ 0800,1200,1700,2100 10/30/20 06:12 CBC - COMP BLD CT W/AUTO DIFF [HEME] DAILYLAB MANUAL DIFFERENTIAL [HEME] Routine 10/30/20 11:30 VANCOMYCIN TROUGH [CHEM] Timed 10/31/20 05:00 CBC - COMP BLD CT W/AUTO DIFF [HEME] DAILYLAB CMP [COMPREHENSIVE METABOLIC PANEL] [CHEM] DAILYLAB 11/01/20 05:00 CBC - COMP BLD CT W/AUTO DIFF [HEME] DAILYLAB 11/02/20 05:00 CBC - COMP BLD CT W/AUTO DIFF [HEME] DAILYLAB Subjective - Subjective Patient Reports: Resting Comfortably Nursing Reports: Other (Sleeps most of the day) Objective Vital Signs: Vital Signs - 24 hr 10/29/20 10/30/20 10/30/20 16:00 01:15 07:48 Temperature 36.4 C L 36.4 C L 36.3 C L Heart Rate [ 89 92 83 Brachial] Respiratory 16 12 14 Rate Blood Pressure 125/70 138/75 H 112/69 [Right Brachial artery] O2 Saturation 97 97 97 Oxygen O2 Source Room air I&O (Last 24 Hrs): Intake and Output Totals x24h 10/28/20 10/29/20 10/30/20 23:59 23:59 23:59 Intake Total 3298 2790 1872 Output Total 850 1050 400 Balance 2448 1740 1472 General: Alert, Other (Lethargic) HEENT: Mucous membr. moist/pink, Other (ashen and icteric, temporal wasting) Neck: Supple Neuro: Alert, Non Focal, Other (Lethargic, no asterixis or nystagmus) Cardiovascular: No murmurs Respiratory: No respiratory distress Abdomen: Soft (Distended, not tense) Genitourinary: Other (Sacrum is bandaged) Extremities: No edema, Other (Heel are bandaged. Arms and hands have muscle wasting.) - Results Results: Laboratory Results WBC 15.1 x10^3/uL (4.8-10.8) H 10/30/20 06:12 RBC 2.57 10^6/uL (4.70-6.10) L 10/30/20 06:12 Hgb 8.0 g/dL (14.0-18.0) L 10/30/20 06:12 Hct 24.9 % (42.0-52.0) L 10/30/20 06:12 MCV 96.9 fL (80.0-94.0) H 10/30/20 06:12 MCH 31.1 pg (27.0-31.0) H 10/30/20 06:12 MCHC 32.1 g/dL (32.0-36.0) 10/30/20 06:12 RDW 14.9 % (12.0-15.0) 10/30/20 06:12 Plt Count 223 10^3/uL (130-450) 10/30/20 06:12 MPV 9.0 fL (7.4-11.4) 10/30/20 06:12 Neut # (Auto) Not Reportable 10/29/20 08:15 Lymph # (Auto) Not Reportable 10/29/20 08:15 [place] # (Auto) Not Reportable 10/29/20 08:15 Eos # (Auto) Not Reportable 10/29/20 08:15 Baso # (Auto) Not Reportable 10/29/20 08:15 Absolute Nucleated RBC Not Reportable 10/29/20 08:15 Total Counted 100 10/29/20 08:15 Band Neuts % (Manual) 2 % (0-10) 10/29/20 08:15 Abnorm Lymph % (Manual) 0 % 10/29/20 08:15 Metamyelocytes % 1 % (-0) H 10/29/20 08:15 Nucleated RBC % Not Reportable 10/29/20 08:15 Neutrophils # (Manual) 17.9 10^3/uL (1.5-6.6) H 10/29/20 08:15 Lymphocytes # (Manual) 0.9 10^3/uL (1.5-3.5) L 10/29/20 08:15 Monocytes # (Manual) 1.5 10^3/uL (0.0-1.0) H 10/29/20 08:15 Eosinophils # (Manual) 0.6 10^3/uL (0-0.7) 10/29/20 08:15 Basophils # (Manual) 0.2 10^3/uL (0-0.1) H 10/29/20 08:15 Differential Comment MANUAL DIFFERENTIAL 10/29/20 08:15 Manual Slide Review Indicated 10/24/20 17:59 WBC Morphology NORMAL APPEARANCE (NORMAL) 10/28/20 06:54 Platelet Estimate NORMAL (130-450,000) (NORMAL) 10/28/20 06:54 Platelet Morphology NORMAL APPEARANCE (NORMAL) 10/28/20 06:54 RBC Morph Micro Appear 1+ ANISOCYTOSIS (NORMAL) 10/29/20 08:15 ESR 65 mm/Hr (0-20) H 10/24/20 17:59 PT 17.1 secs (9.9-12.6) H 10/25/20 12:50 INR 1.6 (0.8-1.2) H 10/25/20 12:50 Sodium 134 mmol/L (135-145) L 10/30/20 06:12 Potassium 4.5 mmol/L (3.5-5.0) 10/30/20 06:12 Chloride 101 mmol/L (101-111) 10/30/20 06:12 Carbon Dioxide 24 mmol/L (21-32) 10/30/20 06:12 Anion Gap 9.0 (6-13) 10/30/20 06:12 BUN 90 mg/dL (6-20) H* 10/30/20 06:12 Creatinine 1.5 mg/dL (0.6-1.2) H 10/30/20 06:12 Estimated GFR (MDRD) 49 (>89) L 10/30/20 06:12 Glucose 258 mg/dL (70-100) H 10/30/20 06:12 POC Whole Bld Glucose 344 mg/dL (70 - 100) H 10/29/20 20:45 Estimat Average Glucose 146 mg/dL (70-100) H 10/26/20 05:03 Hemoglobin A1c % 6.7 % (4.27-6.07) H 10/26/20 05:03 Lactic Acid 1.4 mmol/L (0.5-2.2) 10/28/20 09:54 Calcium 8.2 mg/dL (8.5-10.3) L 10/30/20 06:12 Magnesium 2.7 mg/dL (1.7-2.8) 10/21/20 08:50 Iron 30 ug/dL (45-182) L 10/26/20 05:03 TIBC 186 ug/dL (250-450) L 10/26/20 05:03 % Saturation 16 % (20-50) L 10/26/20 05:03 Transferrin 133 mg/dL (180-329) L 10/26/20 05:03 Total Bilirubin 2.0 mg/dL (0.2-1.0) H 10/30/20 06:12 AST 25 IU/L (10-42) 10/30/20 06:12 ALT 16 IU/L (10-60) 10/30/20 06:12 Alkaline Phosphatase 129 IU/L (42-121) H 10/30/20 06:12 Ammonia 45.3 umol/L (7-35) H 10/30/20 06:12 C-Reactive Protein 13.1 mg/dL (0-1.0) H 10/24/20 17:59 Total Protein 5.9 g/dL (6.7-8.2) L 10/30/20 06:12 Albumin 2.2 g/dL (3.2-5.5) L 10/30/20 06:12 Globulin 3.7 g/dL (2.1-4.2) 10/30/20 06:12 Albumin/Globulin Ratio 0.6 (1.0-2.2) L 10/30/20 06:12 Lipase 47 U/L (22-51) 10/21/20 08:50 Vitamin B12 2855 pg/mL (180-914) H 10/26/20 05:03 Folate 19.46 ng/mL (5.90 - >24.8) 10/26/20 05:03 Nasal Adenovirus (PCR) NOT DETECTED 10/21/20 13:17 Nasal B. parapertussis DNA (PCR) NOT DETECTED 10/21/20 13:17 Nasal Coronavir 229E PCR NOT DETECTED 10/21/20 13:17 Nasal Coronavir HKU1 PCR NOT DETECTED 10/21/20 13:17 Nasal Coronavir NL63 PCR NOT DETECTED 10/21/20 13:17 Nasal Coronavir OC43 PCR NOT DETECTED 10/21/20 13:17 Nasal Enterovir/Rhinovir PCR NOT DETECTED 10/21/20 13:17 Nasal Influenza B PCR NOT DETECTED 10/21/20 13:17 Nasal Influenza A PCR NOT DETECTED 10/21/20 13:17 Nasal Parainfluen 1 PCR NOT DETECTED 10/21/20 13:17 Nasal Parainfluen 2 PCR NOT DETECTED 10/21/20 13:17 Nasal Parainfluen 3 PCR NOT DETECTED 10/21/20 13:17 Nasal Parainfluen 4 PCR NOT DETECTED 10/21/20 13:17 Nasal RSV (PCR) NOT DETECTED 10/21/20 13:17 Nasal B.pertussis DNA PCR NOT DETECTED 10/21/20 13:17 Nasal C.pneumoniae (PCR) NOT DETECTED 10/21/20 13:17 Natanael Human Metapneumo PCR NOT DETECTED 10/21/20 13:17 Nasal M.pneumoniae (PCR) NOT DETECTED 10/21/20 13:17 Nasal SARS-CoV-2 (PCR) NOT DETECTED 10/21/20 13:17 - Procedures Procedures: Procedures DRAINAGE OF PERITONEAL CAVITY, PERCUTANEOUS APPROACH (09/16/20)
[2020-10-30 11:55] LABS: PLATELET ESTIMATE, MANUAL NORMAL (130-450,000) (NORMAL); PLATELET MORPHOLOGY NORMAL APPEARANCE (NORMAL); WBC MORPHOLOGY (MULTIPLE) NORMAL APPEARANCE (NORMAL)
[2020-10-30 11:56] LABS: DIFFERENTIAL COMMENT MANUAL=AUTO DIFF
[2020-10-30 12:16] LABS: VANCOMYCIN,TROUGH 35.6 ug/mL (10.0-20.0)
[2020-10-30] MEDS ORDERED: SODIUM CHLORIDE 0.9% 1,000 ML IV SCH (16:00)
[2020-10-31] MEDS: LACTULOSE 10 GM/15 ML BOTTLE PO SCH ×4 (01:02→19:02)
[2020-10-31] MEDS: SODIUM CHLORIDE FLUSH 0.9% 10 ML SYRINGE IVP SCH ×3 (01:03→04:57)
[2020-10-31] MEDS: oxyCODONE 5 MG TABLET PO PRN ×3 (01:09→18:45)
[2020-10-31] MEDS: PIPERACILLIN/TAZOBACTAM 3.375 GM in SODIUM CHLORIDE 0.9% MINIBAG 100 ML IV SCH ×4 (04:36→21:47)
[2020-10-31] MEDS: HYDROmorphone 0.5 MG/0.5 ML SYRINGE IVP PRN ×2 (04:57→20:13)
[2020-10-31 06:01] LABS: BASOPHILS % (AUTO) 0.8 %; EOSINOPHILS % (AUTO) 2.7 %; HCT - HEMATOCRIT 26.1 % (42.0-52.0); HGB - HEMOGLOBIN 8.2 g/dL (14.0-18.0); LYMPHOCYTES % (AUTO) 6.7 %; MEAN CORPUSCULAR HEMOGLOBIN 30.7 pg (27.0-31.0); MEAN CORPUSCULAR HGB CONC 31.4 g/dL (32.0-36.0); MEAN CORPUSCULAR VOLUME 97.8 fL (80.0-94.0); MEAN PLATELET VOLUME 9.3 fL (7.4-11.4); MONOCYTES % (AUTO) 12.4 %; NEUTROPHILS % (AUTO) 76.2 %; PLT - PLATELET COUNT 224 10^3/uL (130-450); RED BLOOD COUNT 2.67 10^6/uL (4.70-6.10); RED CELL DISTRIBUTION WIDTH 15.1 % (12.0-15.0); WHITE BLOOD COUNT 14.1 x10^3/uL (4.8-10.8)
[2020-10-31 06:04] LABS: ABNORMAL LYMPHS % (MANUAL) 0 %; BAND NEUTROPHILS % (MANUAL) 0 %
[2020-10-31 06:12] LABS: VANCOMYCIN,RANDOM 25.2 ug/mL
[2020-10-31 06:17] LABS: ALBUMIN 2.2 g/dL (3.2-5.5); ALBUMIN/GLOBULIN RATIO 0.6 (1.0-2.2); BILIRUBIN,TOTAL 1.7 mg/dL (0.2-1.0); CALCIUM 8.2 mg/dL (8.5-10.3); CREATININE 1.5 mg/dL (0.6-1.2); POTASSIUM 4.5 mmol/L (3.5-5.0); TOTAL PROTEIN 5.9 g/dL (6.7-8.2)
[2020-10-31 06:22] LABS: EOSINOPHILS # (MANUAL) 0.6 10^3/uL (0-0.7); LYMPHOCYTES # (MANUAL) 0.7 10^3/uL (1.5-3.5); LYMPHOCYTES % (MANUAL) 5 %; MONOCYTES # (MANUAL) 1.7 10^3/uL (0.0-1.0); NEUTROPHILS # (MANUAL) 11.1 10^3/uL (1.5-6.6)
[2020-10-31 06:23] LABS: DIFFERENTIAL COMMENT MANUAL DIFFERENTIAL; PLATELET ESTIMATE, MANUAL NORMAL (130-450,000) (NORMAL); PLATELET MORPHOLOGY NORMAL APPEARANCE (NORMAL); RBC MORPHOLOGY (MULTIPLE) NORMAL APPEARANCE (NORMAL); WBC MORPHOLOGY (MULTIPLE) NORMAL APPEARANCE (NORMAL)
[2020-10-31] MEDS ORDERED: INSULIN GLARGINE 300 UNIT/3 ML PEN SUBQ SCH (08:00)
[2020-10-31] MEDS: INSULIN ASPART 300 UNIT/3 ML PEN SUBQ SCH ×4 (08:03→20:18)
[2020-10-31] MEDS: FERROUS GLUCONATE 324 MG TABLET PO SCH (08:05)
[2020-10-31] MEDS: SACCHAROMYCES BOULARDII 250 MG CAPSULE PO SCH ×2 (08:05→17:01)
[2020-10-31] MEDS ORDERED: INSULIN GLARGINE 300 UNIT/3 ML PEN SUBQ ONE (08:08)
[2020-10-31] MEDS: buPROPion SR 150 MG TABLET PO SCH ×2 (09:51→20:11)
[2020-10-31] MEDS: VENLAFAXINE 37.5 MG TABLET PO SCH ×2 (09:51→20:11)
[2020-10-31] MEDS: MULTIVITAMIN W/MINERALS TABLET PO SCH (09:51)
[2020-10-31] MEDS: HEPARIN 5,000 UNIT/ML VIAL SUBQ SCH ×2 (09:56→20:21)
[2020-10-31 12:00] LABS: INR 1.4 (0.8-1.2); PT - PROTHROMBIN TIME 15.2 secs (9.9-12.6)
[2020-10-31] MEDS: VANCOMYCIN INJ 1 GM, VANCOMYCIN INJ 500 MG in SODIUM CHLORIDE 0.9% 500 ML IV SCH (12:08)
--- NOTE | 2020-10-31 15:07 | Ultrasound Report ---
PROCEDURE: Abdominal Paracentesis INDICATIONS: Abdominal pain, ascites TECHNIQUE: The indications, alternatives, benefits, risks, and complications of the procedure were explained to the patient. Written informed consent was obtained and placed in the chart. The abdomen and pelvis were examined sonographically, and an appropriate site was chosen for paracentesis. The skin was pre pared and draped in the usual sterile fashion, and 1% lidocaine was infiltrated from the skin down th rough the peritoneal surface. A 19-gauge catheter-covered needle was then introduced into the perito valerie space, the catheter was advanced and the needle was withdrawn, and thereafter peritoneal fluid w as withdrawn. The catheter was then removed and a dressing was applied. The fluid was discarded if the clinician did not order diagnostic testing of the fluid. FINDINGS: Access site: Right lower quadrant Needle: One-Step centesis catheter with introducer needle. Fluid volume: 12.1 L Fluid sent for diagnostic testing: Not requested Medications: 1% lidocaine for local anaesthesia. Complications: None. IMPRESSION: Technically successful ultrasound-guided paracentesis. Reviewed by: Hank Busch MD on 10/31/2020 3:05 PM PDT Approved by: Hank Busch MD on 10/31/2020 3:05 PM PDT Station ID: [id number]
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
[2020-10-31] MEDS ORDERED: ALBUMIN 25% 12.5 GM/50 ML VIAL IV STA (17:35)
[2020-10-31] MEDS: ALBUMIN 25% 12.5 GM/50 ML VIAL IV SCH ×4 (17:54→19:26)
[2020-10-31] MEDS ORDERED: MIN OIL/DIMETHICON/COCONUT OIL 92 GM TUBE TOP PRN (18:48)
[2020-11-01] MEDS: HYDROmorphone 0.5 MG/0.5 ML SYRINGE IVP PRN (03:18)
[2020-11-01] MEDS: LACTULOSE 10 GM/15 ML BOTTLE PO SCH ×4 (03:18→20:50)
[2020-11-01] MEDS: SODIUM CHLORIDE FLUSH 0.9% 10 ML SYRINGE IVP SCH ×3 (03:19→16:47)
[2020-11-01] MEDS: PIPERACILLIN/TAZOBACTAM 3.375 GM in SODIUM CHLORIDE 0.9% MINIBAG 100 ML IV SCH ×4 (05:14→21:25)
[2020-11-01] MEDS: oxyCODONE 5 MG TABLET PO PRN ×2 (05:50→16:01)
[2020-11-01 06:21] LABS: BASOPHILS # (AUTO) 0.1 10^3/uL (0.0-0.1); BASOPHILS % (AUTO) 0.9 %; EOSINOPHILS # (AUTO) 0.3 10^3/uL (0.0-0.7); EOSINOPHILS % (AUTO) 2.5 %; HCT - HEMATOCRIT 24.4 % (42.0-52.0); HGB - HEMOGLOBIN 7.8 g/dL (14.0-18.0); LYMPHOCYTES # (AUTO) 0.9 10^3/uL (1.5-3.5); LYMPHOCYTES % (AUTO) 8.1 %; MEAN CORPUSCULAR HEMOGLOBIN 31.3 pg (27.0-31.0); MEAN PLATELET VOLUME 9.4 fL (7.4-11.4); MONOCYTES # (AUTO) 1.6 10^3/uL (0.0-1.0); MONOCYTES % (AUTO) 14.1 %; NEUTROPHILS # (AUTO) 8.1 10^3/uL (1.5-6.6); NEUTROPHILS % (AUTO) 73.4 %; PLT - PLATELET COUNT 192 10^3/uL (130-450); RED BLOOD COUNT 2.49 10^6/uL (4.70-6.10); RED CELL DISTRIBUTION WIDTH 15.1 % (12.0-15.0); WHITE BLOOD COUNT 11.1 x10^3/uL (4.8-10.8)
[2020-11-01 06:56] LABS: RBC MORPHOLOGY (MULTIPLE) 2+ HYPOCHROMASIA (NORMAL)
[2020-11-01 06:57] LABS: DIFFERENTIAL COMMENT MANUAL=AUTO DIFF; PLATELET ESTIMATE, MANUAL NORMAL (130-450,000) (NORMAL); PLATELET MORPHOLOGY NORMAL APPEARANCE (NORMAL)
[2020-11-01] MEDS ORDERED: INSULIN ASPART 300 UNIT/3 ML PEN SUBQ ONE ×3 (07:58→16:37)
[2020-11-01] MEDS: HEPARIN 5,000 UNIT/ML VIAL SUBQ SCH ×2 (08:18→20:50)
[2020-11-01] MEDS: VENLAFAXINE 37.5 MG TABLET PO SCH ×2 (08:22→20:44)
[2020-11-01] MEDS: FERROUS GLUCONATE 324 MG TABLET PO SCH (08:22)
[2020-11-01] MEDS: buPROPion SR 150 MG TABLET PO SCH ×2 (08:22→20:44)
[2020-11-01] MEDS: MULTIVITAMIN W/MINERALS TABLET PO SCH (08:22)
[2020-11-01] MEDS: SACCHAROMYCES BOULARDII 250 MG CAPSULE PO SCH ×2 (08:22→16:47)
[2020-11-01] MEDS: INSULIN GLARGINE 300 UNIT/3 ML PEN SUBQ SCH (08:26)
[2020-11-01] MEDS: INSULIN ASPART 300 UNIT/3 ML PEN SUBQ SCH ×6 (08:39→20:49)
[2020-11-01 09:32] LABS: CALCIUM 7.8 mg/dL (8.5-10.3); CREATININE 1.6 mg/dL (0.6-1.2); POTASSIUM 4.5 mmol/L (3.5-5.0)
--- NOTE | 2020-11-01 12:28 | PROVIDER PROGRESS NOTE ---
Subjective - Prog Note Date Prog Note Date: 11/01/20 Prog Note Time: 12:26 - Subjective Subjective: He has been having bowel movements up to 5 times a day. 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 His sugars have come up quite a bit. In spite of 35 units of Lantus yesterday morning, extra doses of NovoLog, this morning's glucose was 457. After 12 L of fluid removed from his abdomen yesterday BUN was 92 and went to 98. Creatinine was 1.5 and went to 1.6. He did receive the 4 vials of albumin. Still complains that his abdomen is tender. But not nearly as tender and distended as yesterday. He says this is "back down to my chronic pain". No fever. Denies cough, shortness of breath. Current Medications - Current Medications Current Medications: Active Medications Albuterol (Albuterol Neb 2.5 Mg/3 Ml) 2.5 mg INH Q4H PRN PRN Reason: Wheezing Last Admin: 10/22/20 01:48 Dose: 2.5 mg Documented by: Bupropion HCl (Bupropion Sr 150 Mg Tablet) 150 mg PO BID COUNT INCLUDES THE [facility] Last Admin: 11/01/20 08:22 Dose: 150 mg Documented by: Ferrous Gluconate (Ferrous Gluconate 324 Mg Tablet) 324 mg PO DAILYWM COUNT INCLUDES THE [facility] Last Admin: 11/01/20 08:22 Dose: 324 mg Documented by: Heparin Sodium (Porcine) (Heparin 5,000 Unit/Ml Vial) 5,000 unit SUBQ BID COUNT INCLUDES THE [facility] Last Admin: 11/01/20 08:18 Dose: 5,000 unit Documented by: Hydromorphone HCl (Hydromorphone 0.5 Mg/0.5 Ml Syringe) 0.5 mg IVP Q2H PRN PRN Reason: PAIN Last Admin: 11/01/20 03:18 Dose: 0.5 mg Documented by: Piperacillin Sod/Tazobactam (Sod 3.375 gm/ Sodium Chloride) 100 mls @ 200 mls/hr IV Q6H COUNT INCLUDES THE [facility] Last Admin: 11/01/20 11:03 Dose: 200 mls/hr Documented by: Vancomycin HCl 1 gm/Vancomycin HCl 500 mg/ Sodium Chloride 500 mls @ 250 mls/hr IV Q24H COUNT INCLUDES THE [facility] Last Infusion: 10/31/20 14:30 Dose: Infused Documented by: Insulin Aspart (Insulin Aspart 300 Unit/3 Ml Pen) 3 - 11 unit SUBQ 08 00,1200,1700,2100 COUNT INCLUDES THE [facility]; Protocol Last Admin: 11/01/20 08:39 Dose: Not Given Documented by: Insulin Aspart (Insulin Aspart 300 Unit/3 Ml Pen) 5 unit SUBQ TIDWM COUNT INCLUDES THE [facility] Insulin Glargine (Insulin Glargine 300 Unit/3 Ml Pen) 35 unit SUBQ 0800 COUNT INCLUDES THE [facility] Last Admin: 11/01/20 08:26 Dose: 35 unit Documented by: Lactulose (Lactulose 10 Gm/15 Ml Bottle) 30 gm PO BID COUNT INCLUDES THE [facility] Last Admin: 11/01/20 11:02 Dose: 30 gm Documented by: Mineral Oil (Min Oil/Dimethicon/Coconut Oil 92 Gm Tube) 1 applic TOP PRN PRN PRN Reason: Skin Care Multivitamins/Minerals (Multivitamin W/Minerals Tablet) 1 tab PO DAILY COUNT INCLUDES THE [facility] Last Admin: 11/01/20 08:22 Dose: 1 tab Documented by: Ondansetron HCl (Ondansetron 4 Mg/2 Ml Vial) 4 mg IVP Q6HR PRN PRN Reason: Nausea / Vomiting Last Admin: 10/26/20 12:48 Dose: 4 mg Documented by: Oxycodone HCl (Oxycodone 5 Mg Tablet) 5 mg PO Q6HR PRN PRN Reason: PAIN Last Admin: 11/01/20 05:50 Dose: 5 mg Documented by: Saccharomyces Boulardii (Saccharomyces Boulardii 250 Mg Capsule) 250 mg PO BIDWM COUNT INCLUDES THE [facility] Last Admin: 11/01/20 08:22 Dose: 250 mg Documented by: Sodium Chloride (Sodium Chloride Flush 0.9% 10 Ml Syringe) 10 ml IVP PRN PRN PRN Reason: NEEDED PER PROVIDER ORDERS Last Admin: 10/29/20 17:34 Dose: 10 ml Documented by: Sodium Chloride (Sodium Chloride Flush 0.9% 10 Ml Syringe) 10 ml IVP 0100,0900,1700 COUNT INCLUDES THE [facility] Last Admin: 11/01/20 05:15 Dose: 10 ml Documented by: Venlafaxine HCl (Venlafaxine 37.5 Mg Tablet) 37.5 mg PO BID COUNT INCLUDES THE [facility] Last Admin: 11/01/20 08:22 Dose: 37.5 mg Documented by: Albuterol Sulfate [Proair Hfa Inhaler] 1 - 2 puffs INH Q4H PRN 11/13/16 Insulin Glargine,Hum.rec.anlog [Shannanaglstephon Acostapen U-100] 65 units SUBQ DAILY PM 11/13/16 Insulin Regular, Human [Humulin R] 5 - 20 units SUBQ TIDWM 11/13/16 buPROPion HCL [Bupropion HCl Sr] 150 mg PO BID 02/15/20 Venlafaxine ER [Effexor ER] 75 mg PO DAILY 09/15/20 Objective - Vital Signs/Intake & Output Reviewed Vital Signs: Yes Vital Signs: Vital Signs x48h Temp Pulse Resp BP Pulse Ox 11/01/20 07:56 36.7 C 97 20 117/66 97 Intake & Output: Intake & Output 10/29/20 10/30/20 10/31/20 11/01/20 23:59 23:59 23:59 23:59 Intake Total 2790 3176 3028 1051 Output Total 1050 950 900 400 Balance 1740 2226 2128 651 - Objective General Appearance: positive: No acute distress, Alert (prefers to sleep. But when I do wake him up, he is oriented to place and time.) Eyes Bilateral: positive: PERRL, EOMI, Other (mild slceral icterus) ENT: positive: Pharynx nml Neck: positive: No JVD. negative: Stiff neck Respiratory: positive: No respiratory distress, Other (slow shallow unlabored, quite at the bases). negative: Wheezes, Rales, Rhonchi Cardiovascular: positive: Regular rate & rhythm, Systolic murmur. negative: Gallop/S4, Friction rub Abdomen: positive: Hepatomegaly, Other (still distended but the tenseness from yesterday has resolved. now soft, pliable abd wall. mild diffuse tenderness.). negative: Guarding, Rebound Skin: positive: Warm, Dry, Other (forearms w ecchymosis) Extremities: positive: Full ROM, Pedal edema Neurologic/Psychiatric: positive: CN's nml (2-12), Motor nml, Disoriented to time, Slurred/abnml speech (slow, probs w words) - Lab Results Fish Bones: 11/01/20 05:42 11/01/20 09:10 Other Labs: Lab Results x24hrs 11/01/20 11/01/20 11/01/20 Range/Units 11:33 09:10 07:44 WBC (4.8-10.8) x10^3/uL RBC (4.70-6.10) 10^6/uL Hgb (14.0-18.0) g/dL Hct (42.0-52.0) % MCV (80.0-94.0) fL MCH (27.0-31.0) pg MCHC (32.0-36.0) g/dL RDW (12.0-15.0) % Plt Count (130-450) 10^3/uL MPV (7.4-11.4) fL Neut # (Auto) (1.5-6.6) 10^3/uL Lymph # (Auto) (1.5-3.5) 10^3/uL [place] # (Auto) (0.0-1.0) 10^3/uL Eos # (Auto) (0.0-0.7) 10^3/uL Baso # (Auto) (0.0-0.1) 10^3/uL Absolute Nucleated RBC x10^3/uL Band Neuts % (Manual) Abnorm Lymph % (Manual) Nucleated RBC % /100WBC Neutrophils # (Manual) Lymphocytes # (Manual) Monocytes # (Manual) Eosinophils # (Manual) Basophils # (Manual) Differential Comment Platelet Estimate (NORMAL) Platelet Morphology (NORMAL) RBC Morph Micro Appear (NORMAL) Sodium 129 L (135-145) mmol/L Potassium 4.5 (3.5-5.0) mmol/L Chloride 95 L (101-111) mmol/L Carbon Dioxide 24 (21-32) mmol/L Anion Gap 10.0 (6-13) BUN 98 H* (6-20) mg/dL Creatinine 1.6 H (0.6-1.2) mg/dL Estimated GFR (MDRD) 46 L (>89) Glucose 515 H* (70-100) mg/dL POC Whole Bld Glucose 419 H 457 H (70 - 100) mg/dL Calcium 7.8 L (8.5-10.3) mg/dL 11/01/20 10/31/20 10/31/20 Range/Units 05:42 20:17 16:36 WBC 11.1 H (4.8-10.8) x10^3/uL RBC 2.49 L (4.70-6.10) 10^6/uL Hgb 7.8 L (14.0-18.0) g/dL Hct 24.4 L (42.0-52.0) % MCV 98.0 H (80.0-94.0) fL MCH 31.3 H (27.0-31.0) pg MCHC 32.0 (32.0-36.0) g/dL RDW 15.1 H (12.0-15.0) % Plt Count 192 (130-450) 10^3/uL MPV 9.4 (7.4-11.4) fL Neut # (Auto) 8.1 H (1.5-6.6) 10^3/uL Lymph # (Auto) 0.9 L (1.5-3.5) 10^3/uL [place] # (Auto) 1.6 H (0.0-1.0) 10^3/uL Eos # (Auto) 0.3 (0.0-0.7) 10^3/uL Baso # (Auto) 0.1 (0.0-0.1) 10^3/uL Absolute Nucleated RBC 0.00 x10^3/uL Band Neuts % (Manual) Not Reportable Abnorm Lymph % (Manual) Not Reportable Nucleated RBC % 0.0 /100WBC Neutrophils # (Manual) Not Reportable Lymphocytes # (Manual) Not Reportable Monocytes # (Manual) Not Reportable Eosinophils # (Manual) Not Reportable Basophils # (Manual) Not Reportable Differential Comment MANUAL=AUTO DIFF Platelet Estimate NORMAL (130-450,000) (NORMAL) Platelet Morphology NORMAL APPEARANCE (NORMAL) RBC Morph Micro Appear 2+ HYPOCHROMASIA (NORMAL) Sodium (135-145) mmol/L Potassium (3.5-5.0) mmol/L Chloride (101-111) mmol/L Carbon Dioxide (21-32) mmol/L Anion Gap (6-13) BUN (6-20) mg/dL Creatinine (0.6-1.2) mg/dL Estimated GFR (MDRD) (>89) Glucose (70-100) mg/dL POC Whole Bld Glucose 332 H 303 H (70 - 100) mg/dL Calcium (8.5-10.3) mg/dL ABX Reporting Has patient been on IV antibiotics over the past 48 hours?: Yes Assessment/Plan - Problem List (1) Uncontrolled type 2 diabetes mellitus with complication, with long-term current use of insulin Impression: His A1c was now 6.7. He was eating poorly but for the last few days 100% at times. His glucose is consistently now >400 for 24 hours and I have: +resumed lantus to 35 in am +given short acting novolog 30 units in am and 30 units at lunch Plan: Increase lantus again from 35 units am to 35 am and 10 pm start 5 units with meals of novolog work up new infection or cause of destabilized glucose (2) Decubitus ulcer, unstageable with infection Impression: He has both sacral decub and heel ulcer decubitus. Both are being followed by general surgery. will decrease lactulose to bid to reduce amount of stools (3) Alcoholic liver failure Impression: Assessment/Plan: Continue with his lactulose frequent dosing and ordered to titrate to about 3 bowel movements per day. With compliance of Lactulose he has been appropriate, engaging and conversant. He started having 4-6 watery BMs 10/28 and was soiling his sacral wound dressing. Lactulose was decreased from q4h to q6h. Ascites change from 10/29 to 10/30. It became tense, uncomfortable and the patient was yelling in pain asking for paracentesis. Exam confirmed the te nseness of the belly. He had paracentesis and was much less tender, much less distended. I am not thinking spontaneous bacterial peritonitis. He was given 4 vials of albumin yesterday; today still w distension but not tense and tympanitic. Just mildly achey. BMP for followup today showed stable labs. Twice weekly paracenteses stopped when he was living at [facility] (so for 6- 7 weeks now) He is getting oral Thiamine Palliative Care provider, Harper Montiel NP, saw him and he was engaged and logical. He does wish to be a DNR. A POLST was signed (4) Hyponatremia Assessment/Plan: Stable chronic Na of 130-134. No change. He keeps on asking for more water but I have explained I will continue his 1800 cc free fluid per day restriction. He got 1L of NS 8/15 and / and that may have just gone to ascites. Follow BMP daily or every other day (5) CKD (chronic kidney disease) Assessment/Plan: BUN/creat have been very elevated recently, likely due to no continuous iv hydration and free fluid restriction. Avoid nephrotoxins. Follow BMP (6) Anemia Qualifiers: Anemia type: iron deficiency Assessment/Plan: We started him on oral iron supplements. Follow hemoglobin daily or every other day (7) Anxiety and depression Assessment/Plan: We are continuing his Wellbutrin
[2020-11-01] MEDS: VANCOMYCIN INJ 1 GM, VANCOMYCIN INJ 500 MG in SODIUM CHLORIDE 0.9% 500 ML IV SCH (12:43)
[2020-11-01] MEDS: SODIUM CHLORIDE FLUSH 0.9% 10 ML SYRINGE IVP PRN (12:43)
[2020-11-01] MEDS ORDERED: INSULIN GLARGINE 300 UNIT/3 ML PEN SUBQ SCH (21:00)
[2020-11-02] MEDS: oxyCODONE 5 MG TABLET PO PRN ×2 (01:27→19:32)
[2020-11-02] MEDS: HYDROmorphone 0.5 MG/0.5 ML SYRINGE IVP PRN ×5 (01:28→21:32)
[2020-11-02] MEDS: SODIUM CHLORIDE FLUSH 0.9% 10 ML SYRINGE IVP SCH ×3 (01:28→17:04)
[2020-11-02] MEDS: PIPERACILLIN/TAZOBACTAM 3.375 GM in SODIUM CHLORIDE 0.9% MINIBAG 100 ML IV SCH ×4 (03:30→21:49)
[2020-11-02] MEDS: SODIUM CHLORIDE FLUSH 0.9% 10 ML SYRINGE IVP PRN ×4 (03:30→15:08)
[2020-11-02 05:15] LABS: BASOPHILS % (AUTO) 0.9 %; HCT - HEMATOCRIT 23.8 % (42.0-52.0); HGB - HEMOGLOBIN 7.9 g/dL (14.0-18.0); LYMPHOCYTES % (AUTO) 7.9 %; MEAN CORPUSCULAR HEMOGLOBIN 31.9 pg (27.0-31.0); MEAN CORPUSCULAR HGB CONC 33.2 g/dL (32.0-36.0); MEAN PLATELET VOLUME 9.3 fL (7.4-11.4); MONOCYTES % (AUTO) 13.2 %; NEUTROPHILS % (AUTO) 75.1 %; PLT - PLATELET COUNT 194 10^3/uL (130-450); RED BLOOD COUNT 2.48 10^6/uL (4.70-6.10); WHITE BLOOD COUNT 12.7 x10^3/uL (4.8-10.8)
[2020-11-02 05:24] LABS: ABNORMAL LYMPHS % (MANUAL) 0 %
[2020-11-02 05:38] LABS: BAND NEUTROPHILS % (MANUAL) 1 %; BASOPHILS # (MANUAL) 0.1 10^3/uL (0-0.1); BASOPHILS % (MANUAL) 1 %; DIFFERENTIAL COMMENT MANUAL DIFFERENTIAL; LYMPHOCYTES # (MANUAL) 1.1 10^3/uL (1.5-3.5); LYMPHOCYTES % (MANUAL) 9 %; NEUTROPHILS # (MANUAL) 10.4 10^3/uL (1.5-6.6); PLATELET ESTIMATE, MANUAL NORMAL (130-450,000) (NORMAL); RBC MORPHOLOGY (MULTIPLE) NORMAL APPEARANCE (NORMAL)
[2020-11-02] MEDS: INSULIN GLARGINE 300 UNIT/3 ML PEN SUBQ SCH ×2 (08:09→21:34)
[2020-11-02 08:15] LABS: BASOPHILS # (AUTO) 0.1 10^3/uL (0.0-0.1); BASOPHILS % (AUTO) 0.9 %; EOSINOPHILS # (AUTO) 0.3 10^3/uL (0.0-0.7); EOSINOPHILS % (AUTO) 2.7 %; HCT - HEMATOCRIT 24.1 % (42.0-52.0); HGB - HEMOGLOBIN 8.1 g/dL (14.0-18.0); LYMPHOCYTES % (AUTO) 7.8 %; MEAN CORPUSCULAR HEMOGLOBIN 32.4 pg (27.0-31.0); MEAN CORPUSCULAR HGB CONC 33.6 g/dL (32.0-36.0); MEAN CORPUSCULAR VOLUME 96.4 fL (80.0-94.0); MEAN PLATELET VOLUME 9.1 fL (7.4-11.4); MONOCYTES # (AUTO) 1.6 10^3/uL (0.0-1.0); MONOCYTES % (AUTO) 13.5 %; NEUTROPHILS % (AUTO) 74.1 %; PLT - PLATELET COUNT 188 10^3/uL (130-450); RED CELL DISTRIBUTION WIDTH 15.1 % (12.0-15.0); WHITE BLOOD COUNT 12.1 x10^3/uL (4.8-10.8)
[2020-11-02] MEDS: INSULIN ASPART 300 UNIT/3 ML PEN SUBQ SCH ×7 (08:16→21:34)
[2020-11-02] MEDS: MULTIVITAMIN W/MINERALS TABLET PO SCH (08:18)
[2020-11-02] MEDS: SACCHAROMYCES BOULARDII 250 MG CAPSULE PO SCH ×2 (08:18→17:05)
[2020-11-02] MEDS: FERROUS GLUCONATE 324 MG TABLET PO SCH (08:19)
[2020-11-02] MEDS: buPROPion SR 150 MG TABLET PO SCH ×2 (08:19→21:38)
[2020-11-02] MEDS: HEPARIN 5,000 UNIT/ML VIAL SUBQ SCH ×2 (08:21→21:33)
[2020-11-02] MEDS: LACTULOSE 10 GM/15 ML BOTTLE PO SCH ×2 (08:32→21:40)
[2020-11-02 08:34] LABS: DIFFERENTIAL COMMENT MANUAL=AUTO DIFF; PLATELET ESTIMATE, MANUAL NORMAL (130-450,000) (NORMAL); PLATELET MORPHOLOGY NORMAL APPEARANCE (NORMAL)
[2020-11-02] MEDS: VENLAFAXINE 37.5 MG TABLET PO SCH ×2 (08:38→21:38)
[2020-11-02 08:47] LABS: CREATININE 1.6 mg/dL (0.6-1.2)
[2020-11-02] MEDS ORDERED: LACTULOSE 10 GM/15 ML BOTTLE PO ONE (11:00)
[2020-11-02 12:00] LABS: VANCOMYCIN,TROUGH 29.3 ug/mL (10.0-20.0)
--- NOTE | 2020-11-02 12:15 | PHARMACY PROGRESS NOTE ---
- Therapy Status Therapy status: Trough supratherapeutic Treatment indication: SACRAL DECUBITUS ULCER, HEEL DECUBITUS ULCER Trough goal: 15-20 Concurrent antibiotics: Zosyn - ERICK Risk Acute Kidney Injury risk factors: Piperacillin/Tozobactam, Wt >100kg or BMI >40, Goal trough >15, Diabetes - Monitoring and Recommendation Clinical response to treatment: I&O Previous 24 hours 10/31/20 11/01/20 11/02/20 23:59 23:59 23:59 Intake Total 3028 3111 200 Output Total 900 850 425 Balance 2128 2261 -225 Lab Results 11/02/20 11/01/20 10/31/20 08:10 09:10 05:44 ESR BUN 102 H* 98 H* 92 H* Creatinine 1.6 H 1.6 H 1.5 H Estimated GFR (MDRD) 46 L 46 L 49 L 10/30/20 10/29/20 10/28/20 06:12 08:15 06:54 ESR BUN 90 H* 81 H* 76 H Creatinine 1.5 H 1.6 H 1.5 H Estimated GFR (MDRD) 49 L 46 L 49 L 10/27/20 10/26/20 10/25/20 06:09 05:03 13:34 ESR BUN 68 H 65 H 65 H Creatinine 1.5 H 1.5 H 1.5 H Estimated GFR (MDRD) 49 L 49 L 49 L 10/24/20 10/24/20 10/21/20 17:59 17:59 08:50 ESR 65 H BUN 61 H 81 H* Creatinine 1.5 H 1.9 H Estimated GFR (MDRD) 49 L 37 L Vancomycin Monitoring 11/02/20 10/31/20 10/30/20 11:40 05:44 11:43 Vancomycin Trough 29.3 H* 35.6 H* Random Vancomycin 25.2 Cultures 10/30/20 11:05 Foot - Right Wound Culture - Final Proteus Mirabilis Klebsiella Pneumoniae Citrobacter Braakii Enterococcus Faecalis. 10/30/20 11:15 Back - Lower Wound Culture - Final Proteus Mirabilis Klebsiella Pneumoniae Enterococcus Faecalis. 10/25/20 13:34 Blood - Right Arm Blood Culture - Final NO GROWTH AFTER 5 DAYS 10/25/20 12:50 Blood Blood Culture - Final NO GROWTH AFTER 5 DAYS Monitoring plan: Daily serum creatinine Next trough due (date/time): Random level with AM labs Pharmacy recommendation: Decrease dose (Will check a random level with AM labs, then plan to decrease dose to 1000 mg IV q24h if random level is < 20)
--- NOTE | 2020-11-02 17:30 | PROVIDER PROGRESS NOTE ---
Subjective - Prog Note Date Prog Note Date: 11/02/20 Prog Note Time: 17:28 - Subjective Subjective: We had reduced his lactulose because he was having bowel movements up to 5 times a day. So he was reduced to twice daily starting last night. He had 1 movement last night and another one this morning. On the basis of that he was very angry and refused to take any of his medications. Eventually between nursing and myself we were able to prompt him to take the medication. I took the time to discuss his goals of care. He is very clear that he still wants everything done because he wants to live longer. I carefully explained to him that he has significant illness that will shorten his life span. I would like us to all be on the same page with regards to maximizing his medical therapy to achieve his goal. I can only begin to empathize at how frustrating it must be to be so ill and within healthcare system were he has to repeat himself multiple times a day, be seen by multiple people several times a day, and never get a good night sleep or a decent days rest. But if we need to move forward in making sure that he stays healthy for as long as possible, he needs to try and comply as much as possible with the therapy regimen we provided him. He says he understands, and will try and control his anger and frustration better. I have been increasing his Lantus and his short acting insulin doses regularly since November 01 when he peaked at over 419. Today he has been consistently in the 200s. He has been 282, 298, 274. This is on Lantus 35 units in the morning. And I started 10 units of Lantus at night with the first dose last ni ght. He still feels like his abdomen is slowly getting full again. We removed 12 L on the . On the his BUN was 92. Today it is up to 102. Creatinine was 1.5 and he is 1.6 yesterday and today. Weight on October 30 was 106.5. He then had the paracentesis with no weight recorded. The next day he was 102.2. Today he is 105.5 kg again. Current Medications - Current Medications Current Medications: Active Medications Albuterol (Albuterol Neb 2.5 Mg/3 Ml) 2.5 mg INH Q4H PRN PRN Reason: Wheezing Last Admin: 10/22/20 01:48 Dose: 2.5 mg Documented by: Bupropion HCl (Bupropion Sr 150 Mg Tablet) 150 mg PO BID [facility] Last Admin: 11/02/20 08:19 Dose: 150 mg Documented by: Ferrous Gluconate (Ferrous Gluconate 324 Mg Tablet) 324 mg PO DAILYWM [facility] Last Admin: 11/02/20 08:19 Dose: 324 mg Documented by: Heparin Sodium (Porcine) (Heparin 5,000 Unit/Ml Vial) 5,000 unit SUBQ BID [facility] Last Admin: 11/02/20 08:21 Dose: 5,000 unit Documented by: Hydromorphone HCl (Hydromorphone 0.5 Mg/0.5 Ml Syringe) 0.5 mg IVP Q2H PRN PRN Reason: PAIN Last Admin: 11/02/20 15:07 Dose: 0.5 mg Documented by: Piperacillin Sod/Tazobactam (Sod 3.375 gm/ Sodium Chloride) 100 mls @ 200 mls/hr IV Q6H [facility] Last Infusion: 11/02/20 16:56 Dose: Infused Documented by: Insulin Aspart (Insulin Aspart 300 Unit/3 Ml Pen) 3 - 11 unit SUBQ 0800,1200,1700,2100 [facility]; Protocol Last Admin: 11/02/20 17:06 Dose: 7 unit Documented by: Insulin Aspart (Insulin Aspart 300 Unit/3 Ml Pen) 5 unit SUBQ TIDWM [facility] Last Admin: 11/02/20 17:05 Dose: 5 unit Documented by: Insulin Glargine (Insulin Glargine 300 Unit/3 Ml Pen) 35 unit SUBQ 0800 [facility] Last Admin: 11/02/20 08:09 Dose: 35 unit Documented by: Insulin Glargine (Insulin Glargine 300 Unit/3 Ml Pen) 10 unit SUBQ QPM [facility] Last Admin: 11/01/20 20:48 Dose: 10 unit Documented by: Lactulose (Lactulose 10 Gm/15 Ml Bottle) 30 gm PO BID [facility] Last Admin: 11/02/20 08:32 Dose: Not Given Documented by: Mineral Oil (Min Oil/Dimethicon/Coconut Oil 92 Gm Tube) 1 applic TOP PRN PRN PRN Reason: Skin Care Last Admin: 11/02/20 01:28 Dose: 1 applic Documented by: Multivitamins/Minerals (Multivitamin W/Minerals Tablet) 1 tab PO DAILY [facility] Last Admin: 11/02/20 08:18 Dose: 1 tab Documented by: Ondansetron HCl (Ondansetron 4 Mg/2 Ml Vial) 4 mg IVP Q6HR PRN PRN Reason: Nausea / Vomiting Last Admin: 10/26/20 12:48 Dose: 4 mg Documented by: Oxycodone HCl (Oxycodone 5 Mg Tablet) 5 mg PO Q6HR PRN PRN Reason: PAIN Last Admin: 11/02/20 01:27 Dose: 5 mg Documented by: Saccharomyces Boulardii (Saccharomyces Boulardii 250 Mg Capsule) 250 mg PO BIDWM [facility] Last Admin: 11/02/20 17:05 Dose: 250 mg Documented by: Sodium Chloride (Sodium Chloride Flush 0.9% 10 Ml Syringe) 10 ml IVP PRN PRN PRN Reason: NEEDED PER PROVIDER ORDERS Last Admin: 11/02/20 15:08 Dose: 10 ml Documented by: Sodium Chloride (Sodium Chloride Flush 0.9% 10 Ml Syringe) 10 ml IVP 0100,0900,1700 [facility] Last Admin: 11/02/20 17:04 Dose: 10 ml Documented by: Venlafaxine HCl (Venlafaxine 37.5 Mg Tablet) 37.5 mg PO BID [facility] Last Admin: 11/02/20 08:38 Dose: 37.5 mg Documented by: Albuterol Sulfate [Proair Hfa Inhaler] 1 - 2 puffs INH Q4H PRN 11/13/16 Insulin Glargine,Hum.rec.anlog [Shannanaglstephon Asher U-100] 65 units SUBQ DAILY PM 11/13/16 Insulin Regular, Human [Humulin R] 5 - 20 units SUBQ TIDWM 11/13/16 buPROPion HCL [Bupropion HCl Sr] 150 mg PO BID 02/15/20 Venlafaxine ER [Effexor ER] 75 mg PO DAILY 09/15/20 Objective - Vital Signs/Intake & Output Reviewed Vital Signs: Yes Vital Signs: Vital Signs x48h Temp Pulse Resp BP Pulse Ox 11/02/20 16:00 36.8 C 97 16 101/58 L 89 L Intake & Output: Intake & Output 10/30/20 10/31/20 11/01/20 08/19/21 23:59 23:59 23:59 23:59 Intake Total 3176 3028 3111 600 Output Total 917 015 559 675 Balance 2221 3577 6458 -57 - Objective General Appearance: positive: Lethargic (Numerous times he tells me he just wants to be left alone and for us to let him sleep) Eyes Bilateral: positive: PERRL, EOMI ENT: positive: No signs of dehydration Neck: positive: No JVD. negative: Stiff neck Respiratory: positive: No respiratory distress. negative: Wheezes, Rales, Rhonchi Cardiovascular: positive: Regular rate & rhythm. negative: Gallop/S4, Friction rub Abdomen: positive: Tenderness (He had diffuse mild tenderness yesterday. He says it may be is a little bit worse today. But not by much.), Other (His abdomen is more distended than yesterday again. Not as tense as it was on October 31 but getting there. Tympanic. Distant bowel sounds. Positive fluid wave.). negative: Guarding, Rebound Skin: positive: Warm, Dry, Other (Not quite icteric or jaundiced but definite abnormal skin tone cast) Extremities: positive: Full ROM, Pedal edema Neurologic/Psychiatric: positive: Oriented x3, CN's nml (2-12), Motor nml (With psychomotor slowing) - Lab Results Fish Bones: 11/02/20 08:10 11/02/20 08:10 Other Labs: Lab Results x24hrs 11/02/20 11/02/20 11/02/20 Range/Units 16:10 11:40 11:18 WBC (4.8-10.8) x10^3/uL RBC (4.70-6.10) 10^6/uL Hgb (14.0-18.0) g/dL Hct (42.0-52.0) % MCV (80.0-94.0) fL MCH (27.0-31.0) pg MCHC (32.0-36.0) g/dL RDW (12.0-15.0) % Plt Count (130-450) 10^3/uL MPV (7.4-11.4) fL Neut # (Auto) Lymph # (Auto) Weakley # (Auto) Eos # (Auto) Baso # (Auto) Absolute Nucleated RBC Total Counted Band Neuts % (Manual) (0 - 10) % Abnorm Lymph % (Manual) % Nucleated RBC % Neutrophils # (Manual) (1.5-6.6) 10^3/uL Lymphocytes # (Manual) (1.5-3.5) 10^3/uL Monocytes # (Manual) (0.0-1.0) 10^3/uL Eosinophils # (Manual) (0-0.7) 10^3/uL Basophils # (Manual) (0-0.1) 10^3/uL Differential Comment Platelet Estimate (NORMAL) Platelet Morphology (NORMAL) RBC Morph Micro Appear (NORMAL) Sodium (135-145) mmol/L Potassium (3.5-5.0) mmol/L Chloride (101-111) mmol/L Carbon Dioxide (21-32) mmol/L Anion Gap (6-13) BUN (6-20) mg/dL Creatinine (0.6-1.2) mg/dL Estimated GFR (MDRD) (>89) Glucose (70-100) mg/dL POC Whole Bld Glucose 274 H 298 H (70 - 100) mg/dL Calcium (8.5-10.3) mg/dL Last Dose Date UNK Last Dose Time UNK Vancomycin Trough 29.3 H* (10.0-20.0) ug/mL 11/02/20 11/02/20 11/02/20 Range/Units 08:10 08:10 07:16 WBC 12.1 H (4.8-10.8) x10^3/uL RBC 2.50 L (4.70-6.10) 10^6/uL Hgb 8.1 L (14.0-18.0) g/dL Hct 24.1 L (42.0-52.0) % MCV 96.4 H (80.0-94.0) fL MCH 32.4 H (27.0-31.0) pg MCHC 33.6 (32.0-36.0) g/dL RDW 15.1 H (12.0-15.0) % Plt Count 188 (130-450) 10^3/uL MPV 9.1 (7.4-11.4) fL Neut # (Auto) 9.0 H Lymph # (Auto) 1.0 L Weakley # (Auto) 1.6 H Eos # (Auto) 0.3 Baso # (Auto) 0.1 Absolute Nucleated RBC 0.00 Total Counted Band Neuts % (Manual) Not Reportable (0 - 10) % Abnorm Lymph % (Manual) Not Reportable % Nucleated RBC % 0.0 Neutrophils # (Manual) Not Reportable (1.5-6.6) 10^3/uL Lymphocytes # (Manual) Not Reportable (1.5-3.5) 10^3/uL Monocytes # (Manual) Not Reportable (0.0-1.0) 10^3/uL Eosinophils # (Manual) Not Reportable (0-0.7) 10^3/uL Basophils # (Manual) Not Reportable (0-0.1) 10^3/uL Differential Comment MANUAL=AUTO DIFF Platelet Estimate NORMAL (130-450,000) (NORMAL) Platelet Morphology NORMAL APPEARANCE (NORMAL) RBC Morph Micro Appear 2+ HYPOCHROMASIA (NORMAL) Sodium 126 L (135-145) mmol/L Potassium 5.0 (3.5-5.0) mmol/L Chloride 94 L (101-111) mmol/L Carbon Dioxide 23 (21-32) mmol/L Anion Gap 9.0 (6-13) BUN 102 H* (6-20) mg/dL Creatinine 1.6 H (0.6-1.2) mg/dL Estimated GFR (MDRD) 46 L (>89) Glucose 307 H (70-100) mg/dL POC Whole Bld Glucose 282 H (70 - 100) mg/dL Calcium 8.0 L (8.5-10.3) mg/dL Last Dose Date Last Dose Time Vancomycin Trough (10.0-20.0) ug/mL 11/02/20 11/01/20 Range/Units 05:10 20:36 WBC 12.7 H (4.8-10.8) x10^3/uL RBC 2.48 L (4.70-6.10) 10^6/uL Hgb 7.9 L (14.0-18.0) g/dL Hct 23.8 L (42.0-52.0) % MCV 96.0 H (80.0-94.0) fL MCH 31.9 H (27.0-31.0) pg MCHC 33.2 (32.0-36.0) g/dL RDW 15.0 (12.0-15.0) % Plt Count 194 (130-450) 10^3/uL MPV 9.3 (7.4-11.4) fL Neut # (Auto) Not Reportable Lymph # (Auto) Not Reportable Weakley # (Auto) Not Reportable Eos # (Auto) Not Reportable Baso # (Auto) Not Reportable Absolute Nucleated RBC Not Reportable Total Counted 100 Band Neuts % (Manual) 1 (0 - 10) % Abnorm Lymph % (Manual) 0 % Nucleated RBC % Not Reportable Neutrophils # (Manual) 10.4 H (1.5-6.6) 10^3/uL Lymphocytes # (Manual) 1.1 L (1.5-3.5) 10^3/uL Monocytes # (Manual) 1.0 (0.0-1.0) 10^3/uL Eosinophils # (Manual) 0.0 (0-0.7) 10^3/uL Basophils # (Manual) 0.1 (0-0.1) 10^3/uL Differential Comment MANUAL DIFFERENTIAL Platelet Estimate NORMAL (130-450,000) (NORMAL) Platelet Morphology (NORMAL) RBC Morph Micro Appear NORMAL APPEARANCE (NORMAL) Sodium (135-145) mmol/L Potassium (3.5-5.0) mmol/L Chloride (101-111) mmol/L Carbon Dioxide (21-32) mmol/L Anion Gap (6-13) BUN (6-20) mg/dL Creatinine (0.6-1.2) mg/dL Estimated GFR (MDRD) (>89) Glucose (70-100) mg/dL POC Whole Bld Glucose 344 H (70 - 100) mg/dL Calcium (8.5-10.3) mg/dL Last Dose Date Last Dose Time Vancomycin Trough (10.0-20.0) ug/mL Assessment/Plan - Problem List (1) Uncontrolled type 2 diabetes mellitus with complication, with long-term c urrent use of insulin Impression: His A1c was now 6.7. He was eating poorly but for the last few days 100% at times. I have: +resumed lantus to 35 in am +given short acting novolog 30 units in am and 30 units at lunch then I: +Increased lantus again from 35 units am to 35 am and 10 pm +started 5 units with meals of novolog Today I will Increase night time lantus to 15 units. (2) Decubitus ulcer, unstageable with infection Impression: He has both sacral decub and heel ulcer decubitus. Both are being followed by general surgery. will decrease lactulose to bid to reduce amount of stools (3) Alcoholic liver failure Impression: When his latulose was resumed with frequent dosing and ordered to titrate to about 3 bowel movements per day, he became appropriate, engaging and conversant. He started having 4-6 watery BMs 10/28 and was soiling his sacral wound dressing. Lactulose was decreased from q4h to q6h. Ascites change from 10/29 to 10/30. It became tense, uncomfortable and the patient was yelling in pain asking for paracentesis. Exam confirmed the tenseness of the belly. He had paracentesis and was much less tender, much less distended. I am not thinking spontaneous bacterial peritonitis. He was given 4 vials of albumin yesterday; today still w distension but not tense and tympanitic. Just mildly achey. BMP for followup today showed stable labs. Twice weekly paracenteses stopped when he was living at [facility] (so for 6- 7 weeks now) He is getting oral Thiamine Palliative Care provider, Harper Montiel, CURLY, saw him and he was engaged and logical. He does wish to be a DNR. A POLST was signed (4) Hyponatremia Assessment/Plan: Stable chronic Na of 130-134. No change. He keeps on asking for more water but I have explained I will continue his 1800 cc free fluid per day restriction. He got 1L of NS 10/29 and and that may have just gone to ascites. Follow BMP daily or every other day (5) CKD (chronic kidney disease) Assessment/Plan: BUN/creat have been very elevated recently, likely due to no continuous iv hydration and free fluid restriction. Avoid nephrotoxins. Follow BMP (6) Anemia Qualifiers: Anemia type: iron deficiency Assessment/Plan: We started him on oral iron supplements. Follow hemoglobin daily or every other day (7) Anxiety and depression Assessment/Plan: We are continuing his Wellbutrin
[2020-11-03] MEDS: SODIUM CHLORIDE FLUSH 0.9% 10 ML SYRINGE IVP SCH ×4 (00:08→23:47)
[2020-11-03] MEDS: HYDROmorphone 0.5 MG/0.5 ML SYRINGE IVP PRN ×4 (00:09→11:57)
[2020-11-03] MEDS: oxyCODONE 5 MG TABLET PO PRN ×2 (04:20→22:25)
[2020-11-03] MEDS: PIPERACILLIN/TAZOBACTAM 3.375 GM in SODIUM CHLORIDE 0.9% MINIBAG 100 ML IV SCH ×4 (04:20→22:21)
[2020-11-03 05:59] LABS: BASOPHILS % (AUTO) 0.7 %; EOSINOPHILS % (AUTO) 0.9 %; HCT - HEMATOCRIT 26.2 % (42.0-52.0); HGB - HEMOGLOBIN 8.4 g/dL (14.0-18.0); LYMPHOCYTES % (AUTO) 4.3 %; MEAN CORPUSCULAR HEMOGLOBIN 31.1 pg (27.0-31.0); MEAN CORPUSCULAR HGB CONC 32.1 g/dL (32.0-36.0); MONOCYTES % (AUTO) 6.4 %; NEUTROPHILS % (AUTO) 86.6 %; PLT - PLATELET COUNT 195 10^3/uL (130-450); RED CELL DISTRIBUTION WIDTH 15.7 % (12.0-15.0); WHITE BLOOD COUNT 25.8 x10^3/uL (4.8-10.8)
[2020-11-03 06:02] LABS: ABNORMAL LYMPHS % (MANUAL) 0 %; BAND NEUTROPHILS % (MANUAL) 0 %
[2020-11-03 06:17] LABS: EOSINOPHILS # (MANUAL) 0.3 10^3/uL (0-0.7); LYMPHOCYTES % (MANUAL) 4 %; MONOCYTES # (MANUAL) 2.3 10^3/uL (0.0-1.0); NEUTROPHILS # (MANUAL) 22.2 10^3/uL (1.5-6.6)
[2020-11-03 06:18] LABS: DIFFERENTIAL COMMENT MANUAL DIFFERENTIAL; PLATELET ESTIMATE, MANUAL NORMAL (130-450,000) (NORMAL); PLATELET MORPHOLOGY NORMAL APPEARANCE (NORMAL); WBC MORPHOLOGY (MULTIPLE) NORMAL APPEARANCE (NORMAL)
[2020-11-03 06:25] LABS: CALCIUM 8.2 mg/dL (8.5-10.3); CARBON DIOXIDE - CO2 25 mmol/L (21-32); CHLORIDE 96 mmol/L (101-111); GFR - MDRD 35 (>89); GLUCOSE 201 mg/dL (70-100); POTASSIUM 4.9 mmol/L (3.5-5.0); SODIUM 130 mmol/L (135-145); VANCOMYCIN,RANDOM 26.4 ug/mL
[2020-11-03 06:27] LABS: BUN - BLOOD UREA NITROGEN 98 mg/dL (6-20)
[2020-11-03] MEDS: SODIUM CHLORIDE FLUSH 0.9% 10 ML SYRINGE IVP PRN (06:40)
[2020-11-03] MEDS: FERROUS GLUCONATE 324 MG TABLET PO SCH (07:43)
[2020-11-03] MEDS: INSULIN GLARGINE 300 UNIT/3 ML PEN SUBQ SCH ×2 (07:43→22:20)
[2020-11-03] MEDS: INSULIN ASPART 300 UNIT/3 ML PEN SUBQ SCH ×7 (07:47→22:19)
[2020-11-03] MEDS: SACCHAROMYCES BOULARDII 250 MG CAPSULE PO SCH ×2 (07:48→17:19)
[2020-11-03] MEDS ORDERED: SODIUM CHLORIDE 0.9% 1,000 ML IV SCH (09:00)
[2020-11-03] MEDS: VENLAFAXINE 37.5 MG TABLET PO SCH ×2 (09:15→22:21)
[2020-11-03] MEDS: MULTIVITAMIN W/MINERALS TABLET PO SCH (09:16)
[2020-11-03] MEDS: buPROPion SR 150 MG TABLET PO SCH ×2 (09:16→22:21)
[2020-11-03] MEDS: LACTULOSE 10 GM/15 ML BOTTLE PO SCH ×2 (09:17→22:22)
[2020-11-03] MEDS: HEPARIN 5,000 UNIT/ML VIAL SUBQ SCH ×2 (09:17→22:18)
[2020-11-03] MEDS: VANCOMYCIN INJ 1 GM in SODIUM CHLORIDE 0.9% 250 ML IV SCH (11:52)
[2020-11-03] MEDS: MIDODRINE 2.5 MG TABLET PO SCH ×2 (13:47→22:21)
[2020-11-03] MEDS: ALBUMIN 25% 12.5 GM/50 ML VIAL IV SCH ×2 (13:49→22:57)
--- NOTE | 2020-11-03 13:57 | PROVIDER PROGRESS NOTE ---
Subjective - Prog Note Date Prog Note Date: 11/03/20 Prog Note Time: 13:59 - Subjective Pt reports feeling: Worse Subjective: He seems more encephalopathic today. I did decrease lactulose to twice daily but he is still stooling up to 5 times a day. He has no new specific complaints. He says his belly is achy but not ready to pop. There is no fevers, no chills. Current Medications - Current Medications Current Medications: Active Medications Albuterol (Albuterol Neb 2.5 Mg/3 Ml) 2.5 mg INH Q4H PRN PRN Reason: Wheezing Last Admin: 10/22/20 01:48 Dose: 2.5 mg Documented by: Bupropion HCl (Bupropion Sr 150 Mg Tablet) 150 mg PO BID [facility] Last Admin: 11/03/20 09:16 Dose: 150 mg Documented by: Ferrous Gluconate (Ferrous Gluconate 324 Mg Tablet) 324 mg PO DAILYWM [facility] Last Admin: 11/03/20 07:43 Dose: 324 mg Documented by: Heparin Sodium (Porcine) (Heparin 5,000 Unit/Ml Vial) 5,000 unit SUBQ BID [facility] Last Admin: 11/03/20 09:17 Dose: 5,000 unit Documented by: Hydromorphone HCl (Hydromorphone 0.5 Mg/0.5 Ml Syringe) 0.5 mg IVP Q2H PRN PRN Reason: PAIN Last Admin: 11/03/20 11:57 Dose: 0.5 mg Documented by: Piperacillin Sod/Tazobactam (Sod 3.375 gm/ Sodium Chloride) 100 mls @ 200 mls/hr IV Q6H [facility] Last Infusion: 11/03/20 10:13 Dose: Infused Documented by: Sodium Chloride (Normal Saline 0.9%) 1,000 mls @ 83.333 mls/hr IV .Q12H [facility] Stop: 11/03/20 20:59 Last Admin: 11/03/20 09:22 Dose: 83.333 mls/hr Documented by: Vancomycin HCl 1 gm/ Sodium (Chloride) 250 mls @ 167 mls/hr IV Q24H [facility] Last Admin: 11/03/20 11:52 Dose: 167 mls/hr Documented by: Albumin Human (Albuminar-25) 12.5 gm in 50 mls @ 100 mls/hr IV TID [facility] Last Admin: 11/03/20 13:49 Dose: 100 mls/hr Documented by: Insulin Aspart (Insulin Aspart 300 Unit/3 Ml Pen) 3 - 11 unit SUBQ 0800,1200,1700,2100 [facility]; Protocol Last Admin: 11/03/20 11:46 Dose: 9 unit Documented by: Insulin Aspart (Insulin Aspart 300 Unit/3 Ml Pen) 5 unit SUBQ TIDWM [facility] Last Admin: 11/03/20 11:47 Dose: 5 unit Documented by: Insulin Glargine (Insulin Glargine 300 Unit/3 Ml Pen) 35 unit SUBQ 0800 [facility] Last Admin: 11/03/20 07:43 Dose: 35 unit Documented by: Insulin Glargine (Insulin Glargine 300 Unit/3 Ml Pen) 15 unit SUBQ QPM [facility] Last Admin: 11/02/20 21:34 Dose: 15 unit Documented by: Lactulose (Lactulose 10 Gm/15 Ml Bottle) 30 gm PO BID [facility] Last Admin: 11/03/20 09:17 Dose: 30 gm Documented by: Midodrine (Midodrine 2.5 Mg Tablet) 2.5 mg PO TID [facility] Last Admin: 11/03/20 13:47 Dose: 2.5 mg Documented by: Mineral Oil (Min Oil/Dimethicon/Coconut Oil 92 Gm Tube) 1 applic TOP PRN PRN PRN Reason: Skin Care Last Admin: 11/02/20 01:28 Dose: 1 applic Documented by: Multivitamins/Minerals (Multivitamin W/Minerals Tablet) 1 tab PO DAILY [facility] Last Admin: 11/03/20 09:16 Dose: 1 tab Documented by: Ondansetron HCl (Ondansetron 4 Mg/2 Ml Vial) 4 mg IVP Q6HR PRN PRN Reason: Nausea / Vomiting Last Admin: 10/26/20 12:48 Dose: 4 mg Documented by: Oxycodone HCl (Oxycodone 5 Mg Tablet) 5 mg PO Q6HR PRN PRN Reason: PAIN Last Admin: 11/03/20 04:20 Dose: 5 mg Documented by: Saccharomyces Boulardii (Saccharomyces Boulardii 250 Mg Capsule) 250 mg PO BIDWM [facility] Last Admin: 11/03/20 07:48 Dose: 250 mg Documented by: Sodium Chloride (Sodium Chloride Flush 0.9% 10 Ml Syringe) 10 ml IVP PRN PRN PRN Reason: NEEDED PER PROVIDER ORDERS Last Admin: 11/03/20 06:40 Dose: 10 ml Documented by: Sodium Chloride (Sodium Chloride Flush 0.9% 10 Ml Syringe) 10 ml IVP 0100,0900,1700 [facility] Last Admin: 11/03/20 09:23 Dose: Not Given Documented by: Venlafaxine HCl (Venlafaxine 37.5 Mg Tablet) 37.5 mg PO BID [facility] Last Admin: 11/03/20 09:15 Dose: 37.5 mg Documented by: Albuterol Sulfate [Proair Hfa Inhaler] 1 - 2 puffs INH Q4H PRN 11/13/16 Insulin Glargine,Hum.rec.anlog [Basaglar Kwikpen U-100] 65 units SUBQ DAILY PM 11/13/16 Insulin Regular, Human [Humulin R] 5 - 20 units SUBQ TIDWM 11/13/16 buPROPion HCL [Bupropion HCl Sr] 150 mg PO BID 02/15/20 Venlafaxine ER [Effexor ER] 75 mg PO DAILY 09/15/20 Objective - Vital Signs/Intake & Output Reviewed Vital Signs: Yes Vital Signs: Vital Signs x48h Temp Pulse Resp BP Pulse Ox 11/03/20 07:26 36.5 C 91 18 110/69 94 Intake & Output: Intake & Output 10/31/20 11/01/20 11/02/20 11/03/20 23:59 23:59 23:59 23:59 Intake Total 3028 3111 1240 1265 Output Total 900 850 825 350 Balance 2128 2261 415 915 - Objective General Appearance: positive: Lethargic, Other (Morbidly obese white male, laying flat on his back, sleeps most of the day, 5 feet 10 inches tall and weighs 105.5 kg) Eyes Bilateral: positive: PERRL, EOMI Eyes: OU Scleral icterus ENT: positive: No signs of dehydration Neck: positive: No JVD. negative: Stiff neck Respiratory: positive: No respiratory distress, Other (Mild very slow, shallow, unlabored and diminished at the bases. So slow that sometimes I do not hear air movement.). negative: Wheezes, Rales, Rhonchi Cardiovascular: positive: Regular rate & rhythm, Systolic murmur. negative: Gallop/S4, Friction rub Abdomen: positive: Tenderness (Mild and diffuse), Other (Large tympanic and distended abdomen, not firm. Fluid wave palpable. When we do the paracentesis he was much more distended.) Skin: positive: Warm, Dry, Pallor Extremities: positive: Non-tender, Pedal edema Neurologic/Psychiatric: positive: CN's nml (2-12), Disoriented to place, Disoriented to time. negative: Motor nml (Psychomotor slowing. Getting worse today.) - Lab Results Fish Bones: 11/03/20 05:48 11/03/20 05:48 Other Labs: Lab Results x24hrs 11/03/20 11/03/20 11/03/20 Range/Units 11:08 07:19 05:48 WBC 25.8 H (4.8-10.8) x10^3/uL RBC 2.70 L (4.70-6.10) 10^6/uL Hgb 8.4 L (14.0-18.0) g/dL Hct 26.2 L (42.0-52.0) % MCV 97.0 H (80.0-94.0) fL MCH 31.1 H (27.0-31.0) pg MCHC 32.1 (32.0-36.0) g/dL RDW 15.7 H (12.0-15.0) % Plt Count 195 (130-450) 10^3/uL MPV 9.0 (7.4-11.4) fL Neut # (Auto) Not Reportable Lymph # (Auto) Not Reportable Kendall # (Auto) Not Reportable Eos # (Auto) Not Reportable Baso # (Auto) Not Reportable Absolute Nucleated RBC Not Reportable Total Counted 100 Band Neuts % (Manual) 0 (0 - 10) % Abnorm Lymph % (Manual) 0 % Nucleated RBC % Not Reportable Neutrophils # (Manual) 22.2 H (1.5-6.6) 10^3/uL Lymphocytes # (Manual) 1.0 L (1.5-3.5) 10^3/uL Monocytes # (Manual) 2.3 H (0.0-1.0) 10^3/uL Eosinophils # (Manual) 0.3 (0-0.7) 10^3/uL Basophils # (Manual) 0.0 (0-0.1) 10^3/uL Differential Comment MANUAL DIFFERENTIAL WBC Morphology NORMAL APPEARANCE (NORMAL) Platelet Estimate NORMAL (130-450,000) (NORMAL) Platelet Morphology NORMAL APPEARANCE (NORMAL) RBC Morph Micro Appear 1+ HYPOCHROMASIA (NORMAL) Sodium (135-145) mmol/L Potassium (3.5-5.0) mmol/L Chloride (101-111) mmol/L Carbon Dioxide (21-32) mmol/L Anion Gap (6-13) BUN (6-20) mg/dL Creatinine (0.6-1.2) mg/dL Estimated GFR (MDRD) (>89) Glucose (70-100) mg/dL POC Whole Bld Glucose 283 H 197 H (70 - 100) mg/dL Calcium (8.5-10.3) mg/dL Last Dose Date Last Dose Time Random Vancomycin ug/mL 11/03/20 11/02/20 11/02/20 Range/Units 05:48 20:23 16:10 WBC (4.8-10.8) x10^3/uL RBC (4.70-6.10) 10^6/uL Hgb (14.0-18.0) g/dL Hct (42.0-52.0) % MCV (80.0-94.0) fL MCH (27.0-31.0) pg MCHC (32.0-36.0) g/dL RDW (12.0-15.0) % Plt Count (130-450) 10^3/uL MPV (7.4-11.4) fL Neut # (Auto) Lymph # (Auto) Kendall # (Auto) Eos # (Auto) Baso # (Auto) Absolute Nucleated RBC Total Counted Band Neuts % (Manual) (0 - 10) % Abnorm Lymph % (Manual) % Nucleated RBC % Neutrophils # (Manual) (1.5-6.6) 10^3/uL Lymphocytes # (Manual) (1.5-3.5) 10^3/uL Monocytes # (Manual) (0.0-1.0) 10^3/uL Eosinophils # (Manual) (0-0.7) 10^3/uL Basophils # (Manual) (0-0.1) 10^3/uL Differential Comment WBC Morphology (NORMAL) Platelet Estimate (NORMAL) Platelet Morphology (NORMAL) RBC Morph Micro Appear (NORMAL) Sodium 130 L (135-145) mmol/L Potassium 4.9 (3.5-5.0) mmol/L Chloride 96 L (101-111) mmol/L Carbon Dioxide 25 (21-32) mmol/L Anion Gap 9.0 (6-13) BUN 98 H* (6-20) mg/dL Creatinine 2.0 H (0.6-1.2) mg/dL Estimated GFR (MDRD) 35 L (>89) Glucose 201 H (70-100) mg/dL POC Whole Bld Glucose 254 H 274 H (70 - 100) mg/dL Calcium 8.2 L (8.5-10.3) mg/dL Last Dose Date 11-02-2020 Last Dose Time 1204 Random Vancomycin 26.4 ug/mL ABX Reporting Has patient been on IV antibiotics over the past 48 hours?: No Assessment/Plan - Problem List (1) Uncontrolled type 2 diabetes mellitus with complication, with long-term current use of insulin Impression: His A1c was now 6.7. He was eating poorly but for the last few days 100% at times. This morning he has come down to 197, and by lunch to 83 I have: +resumed lantus to 35 in am +given short acting novolog 30 units in am and 30 units at lunch then I: +Increased lantus again from 35 units am to 35 am and 10 pm +started 5 units with meals of novolog then I Increased night time lantus to 15 units. today increase short acting novolog to 7 units with meals (2) Decubitus ulcer, unstageable with infection Impression: He has both sacral decub and heel ulcer decubitus. Both are being followed by general surgery. will decrease lactulose to bid to reduce amount of stools (3) Alcoholic liver failure Impression: When his latulose was resumed with frequent dosing and ordered to titrate to about 3 bowel movements per day, he became appropriate, engaging and conversant. He started having 4-6 watery BMs 10/28 and was soiling his sacral wound dressing. Lactulose was decreased from q4h to q6h. Ascites change from 10/29 to 10/30. It became tense, uncomfortable and the patient was yelling in pain asking for paracentesis. Exam confirmed the tenseness of the belly. He had paracentesis and was much less tender, much less distended. I am not thinking spontaneous bacterial peritonitis. He was given 4 vials of albumin 10/31; still w distension but not tense and tympanitic. Just mildly achey. Today his fluid seems to be returning and his labs show beter BUN but worse creatinine. He seems more and more withdrawn even as I titrate his laculose. Twice weekly paracenteses stopped when he was living at [facility] (so for 6-7 weeks now) He is getting oral Thiamine Palliative Care provider, Harper Montiel, CURLY, saw him and he was engaged and logical. He does wish to be a DNR. A POLST was signed I decreased lactulose to bid 2 days ago and still w frequent stools. Keep lactulose at twice daily. Even though we are titrating it to the amount of stools he is having, decreasing the lactulose is only resulted in worsening encephalopathy. Start midrodrine to raise BP Albumin 25 grams tid with the midodrine. Betablockers are plus minus No rocephine for now since no GI bleed consider xifaxan Give 1 liter of NS @ 83 cc/hr I discussed all of this with the patient. I do not know how much she is processing. Mom is to come visit him today. He is not doing well. (4) Hyponatremia stable Assessment/Plan: Stable chronic Na of 130-134. No change. He keeps on asking for more water but I have explained I will continue his 1800 cc free fluid per day restriction. He got 1L of NS 10/29 and / and that may have just gone to ascites. Given another liter today Follow BMP daily or every other day (5) CKD (chronic kidney disease) Assessment/Plan: BUN/creat have been very elevated recently, likely due to no continuous iv hydration and free fluid restriction. Creatinine continues to rise and BUN +/- stable and high. Avoid nephrotoxins. (6) Anemia Qualifiers: Anemia type: iron deficiency Assessment/Plan: We started him on oral iron supplements. Follow hemoglobin daily or every other day (7) Anxiety and depression Assessment/Plan: We are continuing his Wellbutrin
[2020-11-04] MEDS: HYDROmorphone 0.5 MG/0.5 ML SYRINGE IVP PRN ×6 (02:05→22:15)
[2020-11-04] MEDS: SODIUM CHLORIDE FLUSH 0.9% 10 ML SYRINGE IVP PRN ×4 (02:08→22:15)
[2020-11-04] MEDS: PIPERACILLIN/TAZOBACTAM 3.375 GM in SODIUM CHLORIDE 0.9% MINIBAG 100 ML IV SCH ×4 (04:01→22:15)
[2020-11-04] MEDS: oxyCODONE 5 MG TABLET PO PRN ×2 (04:10→17:20)
[2020-11-04] MEDS: ALBUMIN 25% 12.5 GM/50 ML VIAL IV SCH ×8 (05:24→21:34)
[2020-11-04] MEDS: MIDODRINE 2.5 MG TABLET PO SCH ×3 (05:37→22:15)
[2020-11-04 05:53] LABS: BASOPHILS # (AUTO) 0.1 10^3/uL (0.0-0.1); BASOPHILS % (AUTO) 0.8 %; EOSINOPHILS # (AUTO) 0.4 10^3/uL (0.0-0.7); EOSINOPHILS % (AUTO) 2.8 %; HCT - HEMATOCRIT 24.4 % (42.0-52.0); HGB - HEMOGLOBIN 7.8 g/dL (14.0-18.0); LYMPHOCYTES # (AUTO) 1.2 10^3/uL (1.5-3.5); LYMPHOCYTES % (AUTO) 8.7 %; MEAN CORPUSCULAR VOLUME 96.8 fL (80.0-94.0); MEAN PLATELET VOLUME 8.9 fL (7.4-11.4); MONOCYTES # (AUTO) 1.4 10^3/uL (0.0-1.0); MONOCYTES % (AUTO) 10.1 %; NEUTROPHILS # (AUTO) 10.2 10^3/uL (1.5-6.6); NEUTROPHILS % (AUTO) 76.6 %; PLT - PLATELET COUNT 171 10^3/uL (130-450); RED BLOOD COUNT 2.52 10^6/uL (4.70-6.10); RED CELL DISTRIBUTION WIDTH 15.9 % (12.0-15.0); WHITE BLOOD COUNT 13.4 x10^3/uL (4.8-10.8)
[2020-11-04 06:09] LABS: CALCIUM 8.2 mg/dL (8.5-10.3); CREATININE 1.9 mg/dL (0.6-1.2)
[2020-11-04] MEDS: SACCHAROMYCES BOULARDII 250 MG CAPSULE PO SCH ×2 (07:54→17:15)
[2020-11-04] MEDS: FERROUS GLUCONATE 324 MG TABLET PO SCH (07:54)
[2020-11-04] MEDS: INSULIN ASPART 300 UNIT/3 ML PEN SUBQ SCH ×7 (07:58→21:06)
[2020-11-04] MEDS: INSULIN GLARGINE 300 UNIT/3 ML PEN SUBQ SCH ×2 (08:02→21:06)
[2020-11-04] MEDS: MULTIVITAMIN W/MINERALS TABLET PO SCH (09:12)
[2020-11-04] MEDS: LACTULOSE 10 GM/15 ML BOTTLE PO SCH ×2 (09:12→21:10)
[2020-11-04] MEDS: buPROPion SR 150 MG TABLET PO SCH ×2 (09:12→21:04)
[2020-11-04] MEDS: SODIUM CHLORIDE FLUSH 0.9% 10 ML SYRINGE IVP SCH ×2 (09:15→17:15)
[2020-11-04] MEDS: HEPARIN 5,000 UNIT/ML VIAL SUBQ SCH ×2 (09:16→21:07)
[2020-11-04] MEDS: VENLAFAXINE 37.5 MG TABLET PO SCH ×2 (09:29→21:04)
[2020-11-04] MEDS: VANCOMYCIN INJ 1 GM in SODIUM CHLORIDE 0.9% 250 ML IV SCH (12:03)
--- NOTE | 2020-11-04 12:40 | PROVIDER PROGRESS NOTE ---
Subjective - Prog Note Date Prog Note Date: 11/04/20 - Subjective Pt reports feeling: No change Subjective: Pt found sleeping/resting in bed this morning, complaining of pain. Refusing turns ("don't you dare move me"). Lying supine with pillows on each side of him. Irritable, mother present earlier this morning requesting he get another paracentesis. Agreeable to DNR but does not want to discuss hospice. Objective - Vital Signs/Intake & Output Reviewed Vital Signs: Yes Vital Signs: Vital Signs x48h Temp Pulse Resp BP Pulse Ox 11/04/20 07:54 36.8 C 106 H 18 119/67 93 11/04/20 05:37 104 H 112/64 Intake & Output: Intake & Output 11/01/20 11/02/20 11/03/20 11/04/20 23:59 23:59 23:59 23:59 Intake Total 3111 1240 3525 1627 Output Total 394 693 1541 400 Balance 2261 415 2450 1227 - Objective General Appearance: positive: No acute distress, Lethargic, Other (morbidly obese white male, lying supine and sleeping most of the day) Eyes Bilateral: positive: PERRL, EOMI, No lid inflammation Eyes: OU Scleral icterus ENT: positive: ENT inspection nml, No signs of dehydration Neck: positive: Nml inspection Respiratory: positive: No respiratory distress, Other (Diminished bilaterally in the bases). negative: Wheezes, Rales, Rhonchi Cardiovascular: positive: Regular rate & rhythm, Tachycardia, Systolic murmur. negative: Gallop/S4, Friction rub Peripheral Pulses: 2+ Radial (R), 2+ Radial (L), 2+ Dorsalis pedis (R), 2+ Dorsalis pedis (L) Abdomen: positive: Tenderness (to soft and deep palpation; diffuse andmile), Other (distended and tympanic, +fluid wave/ascites, +umbilical hernia) Skin: positive: Warm, Dry, Pallor, Decubitus (bilateral heels unstageable; sacrum not visualized, multiple dry scabs to bilateral lower extremities) Extremities: positive: Non-tender, Nml appearance, Pedal edema Neurologic/Psychiatric: positive: CN's nml (2-12), Depressed mood/affect, Other (Irritable; +asterixis). negative: Motor nml (slow movement) - Lab Results Fish Bones: 11/04/20 05:34 11/04/20 05:34 Other Labs: Lab Results x24hrs 11/04/20 11/04/20 11/04/20 Range/Units 11:29 07:50 05:34 WBC (4.8-10.8) x10^3/uL RBC (4.70-6.10) 10^6/uL Hgb (14.0-18.0) g/dL Hct (42.0-52.0) % MCV (80.0-94.0) fL MCH (27.0-31.0) pg MCHC (32.0-36.0) g/dL RDW (12.0-15.0) % Plt Count (130-450) 10^3/uL MPV (7.4-11.4) fL Neut # (Auto) (1.5-6.6) 10^3/uL Lymph # (Auto) (1.5-3.5) 10^3/uL Pender # (Auto) (0.0-1.0) 10^3/uL Eos # (Auto) (0.0-0.7) 10^3/uL Baso # (Auto) (0.0-0.1) 10^3/uL Absolute Nucleated RBC x10^3/uL Nucleated RBC % /100WBC Sodium 132 L (135-145) mmol/L Potassium 5.0 (3.5-5.0) mmol/L Chloride 97 L (101-111) mmol/L Carbon Dioxide 25 (21-32) mmol/L Anion Gap 10.0 (6-13) BUN 104 H* (6-20) mg/dL Creatinine 1.9 H (0.6-1.2) mg/dL Estimated GFR (MDRD) 37 L (>89) Glucose 254 H (70-100) mg/dL POC Whole Bld Glucose 280 H 302 H (70 - 100) mg/dL Calcium 8.2 L (8.5-10.3) mg/dL 11/04/20 11/03/20 11/03/20 Range/Units 05:34 20:48 16:21 WBC 13.4 H (4.8-10.8) x10^3/uL RBC 2.52 L (4.70-6.10) 10^6/uL Hgb 7.8 L (14.0-18.0) g/dL Hct 24.4 L (42.0-52.0) % MCV 96.8 H (80.0-94.0) fL MCH 31.0 (27.0-31.0) pg MCHC 32.0 (32.0-36.0) g/dL RDW 15.9 H (12.0-15.0) % Plt Count 171 (130-450) 10^3/uL MPV 8.9 (7.4-11.4) fL Neut # (Auto) 10.2 H (1.5-6.6) 10^3/uL Lymph # (Auto) 1.2 L (1.5-3.5) 10^3/uL Pender # (Auto) 1.4 H (0.0-1.0) 10^3/uL Eos # (Auto) 0.4 (0.0-0.7) 10^3/uL Baso # (Auto) 0.1 (0.0-0.1) 10^3/uL Absolute Nucleated RBC 0.00 x10^3/uL Nucleated RBC % 0.0 /100WBC Sodium (135-145) mmol/L Potassium (3.5-5.0) mmol/L Chloride (101-111) mmol/L Carbon Dioxide (21-32) mmol/L Anion Gap (6-13) BUN (6-20) mg/dL Creatinine (0.6-1.2) mg/dL Estimated GFR (MDRD) (>89) Glucose (70-100) mg/dL POC Whole Bld Glucose 277 H 290 H (70 - 100) mg/dL Calcium (8.5-10.3) mg/dL ABX Reporting Has patient been on IV antibiotics over the past 48 hours?: Yes Sepsis Event Note (H) - Evaluation Current Stage of Sepsis: Ruled out Assessment/Plan - Problem List (1) Alcoholic liver failure Impression: Complaining of discomfort related to ascites, more distended abdomen today. Last paracentesis was 10/31, requesting another today. 15.3L removed today. F carterid was cloudy and dark so sent for culture to check to see if this is contributing to his leukocytosis. Replacing albumin today due to large volume of removal. +Asterixis. Receiving lactulose BID, 4 stools overnight but none yet today per nursing. Mentation improved initially after resuming his frequent lactulose dosing as he was engaging and conversant. Now more lethargic and irritable but will answer questions. BUN 104 today (up from 98), Creatinine 1.9 (down from 2). Both are staying in similar range. Keeping at twice daily, even though titrating it to the amount of stools he is having results in worsening encephalopathy. Twice weekly paracenteses stopped prior to admission for approximately6-7 weeks, given that he wants to remain DNR but is refusing hospice and wanting everything done that can be done may need to reschedule him for twice weekly therapeutic paracenteses. He is getting oral thiamine. Seen by Palliative Care 11/02 and signed a POLST, made DNR. Further discussion with Dr. Cotton today reveals he does not want to revisit issue of hospice and is declining hospice services. Receiving Midodrine to raise his BP and Albumin 25g TID with it. Mother came to visit today. He is not doing well. (2) Uncontrolled type 2 diabetes mellitus with complication, with long-term current use of insulin Impression: A1C 6.7. Requires assistance from nursing to eat and drink. BG 302 this am and 280 with lunch. Lantus increased to 40 units in am, 20 units Lantus pm; continued Novolog 7 units with meals in addition to sliding scale Novolog. (3) Decubitus ulcer, unstageable with infection Impression: He has an unstageable sacral ulcer which has not been visualized today as he refused to turn for inspection. He is refusing turns and spending most of his time supine, with pillows on either side of him. Would benefit from a specialty mattress but this is not an option at this hospital- would benefit from a group 2 low air loss mattress at discharge if available given that the wound will be at least a stage 3 or 4 as it evolves. Lactulose was titrated yesterday to decrease the number of stools he is having to decrease dressing contamination. Followed by General Surgery. Has been recieving antibiotics for infection, WBC remaining stable (13 today from 25 yesterday though has ranged 11-14 with exception of 25 yesterday). Bilateral Heel unstageable pressure injuries. Last dressings changed on 10/30 so I was present for dressing change today. All three heel ulcers consist of dry adherent eschar with attached edges. Mild periwound erythema, blanching, <3cm around. The right posterior heel ulcer is boggy at the center which I believe is a change and he would benefit from a follow up with the Wound Care team providers to see if further debridement is indicated. Hydrofera Blue and Mepilex were continued and the heels were offloaded in the air with pillows as distribution does not have heel protection boots. (4) Leukocytosis Impression: WBC has been ranging 11-14 with one increase to 25 yesterday. Has been receiving Pip/Tazo and Vanco but these do not appear to be enough. Infection initially thought due to his infected sacral pressure injury but he may also have bacteria building up in his abdomen. Sacral wound cultures growing proteus mirabilus, klebsiella pneumoniae, and enterococcus faecalus. R heel culture growing the same with addition of citrobacter braakii. Cultures of the ascites fluid were sent to lab for review and will plan to tailor antibiotics to the results. Qualifiers: Leukocytosis type: unspecified Qualified Code(s): D72.829 - Elevated white blood cell count, unspecified (5) Hyponatremia Impression: Stable chronic NA of 130-134. 132 today. Continues to request more ice water but his free fluid restriction has been explained. Continue 1800 free fluid/day. Follow BMP daily. (6) CKD (chronic kidney disease) Impression: BUN and creatinine remain elevated, likely due to no continuous IV hydration and free fluid restriction but also may be related to infection/hepatorenal syndrome. Creatining has come down to 1.9 from 2 today and BUN remains stable high. Avoid nephrotoxins. Qualifiers: Chronic kidney disease stage: unspecified stage Qualified Code(s): N18.9 - Chronic kidney disease, unspecified (7) Anemia Impression: continues iron supplements. Hemoglobin stable. Trending daily to every other day. Qualifiers: Anemia type: iron deficiency (8) Anxiety and depression Impression: More irritable today. Does not endorse increased anxiety and depression. Wellbutrin was continued.
--- NOTE | 2020-11-04 12:45 | CONSULTATION NOTE ---
Referring Provider Name of Referring Provider:: MD Yury Consult Date: 11/04/20 Chief Complaint - Chief Complaint Chief Complaint: Massive ascites History of Present Illness - Admitted From Admitted From:: ED - History of Present Illness HPI Comment/Other: Landon is a very unfortunate 50-year-old gentleman with end-stage liver disease. He has a history of social difficulties as well as a long history of alcohol use and abuse. He was admitted from our emergency room about 10 days ago. On the he had paracentesis of 12 L of ascites fluid which is subsequently recollected.I have been consulted for bedside paracentesis. The patient has had multiple procedures of this type in the past. At 1 point he was receiving biweekly paracentesis but social and psychiatric issues seem to have affected his care and that was stopped. He has had some difficulty maintaining adherence to medical regimen.Today he tells me he is very uncomfortable and is very clear that he desires bedside paracentesis and clearly understands this is a palliative but not life-saving procedure for him. History - Past Medical History Cardiovascular: reports: Hypertension, High cholesterol Respiratory: reports: Asthma Neuro: reports: Peripheral neuropathy, Other Endocrine/Autoimmune: reports: Type 2 diabetes GI: reports: Cirrhosis, Other (hepatocellular CA) : reports: Retention, Indwelling catheter HEENT: reports: Chronic vision loss Psych: reports: Depression, Anxiety Musculoskeletal: reports: Osteoarthritis, Fatigue, Chronic back pain Derm: reports: Psoriasis, Other (decub sacral; bilat heels) MRSA Hx?: No - Past Surgical History General: reports: Other Ortho: reports: Arthroscopic surgery - Family & Social History Family History: Mother: Alive and Well Family History Comment/Other: Based off of prior records, he reports his mother has obesity and hypertension. Denies any other family history. Unable to confirm this today given his encephalopathy. Living arrangement: Assisted living Living Situation: With family Social History Notes: Review of prior records reveal that he lived at home with his mother. He smoked about a pack a day for 10 years but quit quite a few years ago. He was a previous alcoholic but quit drinking about 6 mos ago. He previously drank for about 15 years. Denies illicit drug use. He currently does not work. - Substance History Use: Uses substance without health or social issues: Tobacco (hx of 25 year smoking), Alcohol (beer; sober since prioir admit) - POLST Patient has POLST: Yes POLST Status: Full Code Meds/Allgy - Home Medications Home Medications: Ambulatory Orders Medication Instructions Recorded Confirmed Albuterol Sulfate [Proair Hfa 1 - 2 puffs INH Q4H PRN 11/13/16 10/21/20 Inhaler] Insulin Glargine,Hum.rec.anlog 65 units SUBQ DAILY PM 11/13/16 10/21/20 [Basaglar Kwikpen U-100] Insulin Regular, Human [Humulin R] 5 - 20 units SUBQ TIDWM 11/13/16 10/21/20 buPROPion HCL [Bupropion HCl Sr] 150 mg PO BID 02/15/20 10/21/20 Multivitamin W/Minerals [Theragran 1 tab PO DAILY #30 tablet 03/29/20 10/21/20 M] Venlafaxine ER [Effexor ER] 75 mg PO DAILY 09/15/20 10/21/20 Lactulose 30 gm PO Q4HR #0 bottle 09/20/20 10/21/20 - Allergies Allergies/Adverse Reactions: Allergies Allergy/AdvReac Type Severity Reaction Status Date / Time cantaloupe Allergy Anaphylaxis Verified 10/21/20 08:33 melon Allergy Anaphylaxis Verified 10/21/20 08:33 lisinopril AdvReac Respiratory Verified 10/21/20 08:33 Review of Systems - Constitutional Constitutional: reports: Fatigue, Malaise, Weakness, Poor appetite, Diaphoresis, Night sweats, Weight gain - Cardiovascular Cariovascular: reports: Edema, Lightheadedness, Exertional dyspnea - Respiratory Respiratory: reports: Cough - Gastrointestinal Gastrointestinal: reports: Abdominal pain, Abdominal distention - Neurological Neurological: reports: General weakness Exam - Vital Signs Reviewed Vital Signs: Yes Vital Signs: Vital Signs x48h Temp Pulse Resp BP Pulse Ox 11/04/20 07:54 36.8 C 106 H 18 119/67 93 11/04/20 05:37 104 H 112/64 - Physical Exam Comments/Other: Very ill-appearing and obviously uncomfortable gentleman. He is lying flat in his bed. He tells me this is more comfortable than trying to sit up considering the size of his abdomen.His abdomen is very distended. Nontender to palpation. Definite fluid wave. Multiple distended veins extending across the abdominal surface consistent with portal hypertension.The remainder of the physical examination reveals muscle wasting and even temporal fat loss. Conclusion/Plan - Lab Results Lab results reviewed: Yes Fish Bones: 11/04/20 05:34 11/04/20 05:34 - Other Other Results/Comments: Very unfortunate 50-year-old gentleman with end-stage liver disease for palliative paracentesis. We discussed the risks and benefits of the procedure specifically bleeding and bowel injury. Landon understands that injury to his bowel would be a life ending event for him. With all of these things considered, he is expressed a desire to have the procedure. He had some great difficulty signing the document but his nurse, Maru Anand RN, was present at the time of our discussion.
--- NOTE | 2020-11-04 14:59 | OPERATIVE REPORT ---
Operative Report - General Admit Date: 10/25/20 Procedure Date: 11/04/20 Planned Procedure: Large volume paracentesis Pre-Op Diagnosis: Massive ascites Procedure Performed: Large-volume paracentesis with ultrasound guidance Post Op Diagnosis: Same - Procedure Note Primary Surgeon: Clari Anesthesia Technique: Local Pathology: Fluid submitted for culture Estimated Blood Loss (mL): 1 Findings: Cloudy peritoneal fluid Complications: None apparent - Other Other Information/Narrative: After obtaining informed consent, the patient was brought to the ultrasound suite and placed in the supine position on the examination table. Verbal and written consent were obtained for the procedure. The ultrasound was used to identify a clear window of opportunity in the left lower quadrant for placement of a paracentesis catheter. This area was marked. Using the provided kit, the area over the kirill was prepped and draped in the standard surgical fashion. The skin was anesthetized with 8 mL of 1% lidocaine. A 2 mm barbara was created in the skin over the abdominal wall at this site. The catheter was directed into the abdominal wall while aspirating to detect entrance into the peritoneal cavity. The catheter was then advanced without the needle and the needle was completely removed. The port catheter was then hooked to low negative pressure. Cloudy to straw-colored fluid was then aspirated from the peritoneal cavity. In all, 15.3 L of fluid was removed. Once there was no longer free flow of fluid, the catheter was then disconnected from suction, it was removed under direct vision. The wound was cleaned once again and a bandaid applied. All sponge, needle, and instrument counts were correct at the conclusion of the case. The patient tolerated the procedure very well.
--- NOTE | 2020-11-04 17:36 | Ultrasound Report ---
PROCEDURE: Abdomen Limited INDICATIONS: Abd px. Ascites. Therap. Paracentesis. TECHNIQUE: Real-time focused scanning was performed of the abdomen, with image documentation. COMPARISON: 10/31/2020 FINDINGS: This study was performed for evaluation for paracentesis. Severe ascites is seen. IMPRESSION: There is severe ascites. Reviewed by: Reese Richardson MD on 11/04/2020 4:35 PM AKDT Approved by: Reese Richardson MD on 11/04/2020 4:35 PM AKDT Station ID: [id number]
[2020-11-05] MEDS: SODIUM CHLORIDE FLUSH 0.9% 10 ML SYRINGE IVP SCH ×3 (01:19→17:17)
[2020-11-05] MEDS: HYDROmorphone 0.5 MG/0.5 ML SYRINGE IVP PRN ×2 (01:19→14:48)
[2020-11-05] MEDS: PIPERACILLIN/TAZOBACTAM 3.375 GM in SODIUM CHLORIDE 0.9% MINIBAG 100 ML IV SCH ×4 (03:57→22:21)
[2020-11-05] MEDS: SODIUM CHLORIDE FLUSH 0.9% 10 ML SYRINGE IVP PRN ×4 (03:57→22:21)
[2020-11-05 04:53] LABS: BASOPHILS # (AUTO) 0.1 10^3/uL (0.0-0.1); BASOPHILS % (AUTO) 0.7 %; EOSINOPHILS # (AUTO) 0.3 10^3/uL (0.0-0.7); EOSINOPHILS % (AUTO) 2.6 %; HCT - HEMATOCRIT 21.7 % (42.0-52.0); HGB - HEMOGLOBIN 7.2 g/dL (14.0-18.0); LYMPHOCYTES # (AUTO) 0.8 10^3/uL (1.5-3.5); LYMPHOCYTES % (AUTO) 6.6 %; MEAN CORPUSCULAR HEMOGLOBIN 31.9 pg (27.0-31.0); MEAN CORPUSCULAR HGB CONC 33.2 g/dL (32.0-36.0); MEAN PLATELET VOLUME 8.6 fL (7.4-11.4); MONOCYTES # (AUTO) 1.4 10^3/uL (0.0-1.0); MONOCYTES % (AUTO) 11.9 %; NEUTROPHILS # (AUTO) 9.4 10^3/uL (1.5-6.6); NEUTROPHILS % (AUTO) 77.7 %; PLT - PLATELET COUNT 159 10^3/uL (130-450); RED BLOOD COUNT 2.26 10^6/uL (4.70-6.10); RED CELL DISTRIBUTION WIDTH 15.7 % (12.0-15.0); WHITE BLOOD COUNT 12.1 x10^3/uL (4.8-10.8)
[2020-11-05 05:01] LABS: VANCOMYCIN,RANDOM 31.7 ug/mL
[2020-11-05 05:14] LABS: CALCIUM 8.5 mg/dL (8.5-10.3); CREATININE 1.8 mg/dL (0.6-1.2); POTASSIUM 5.1 mmol/L (3.5-5.0)
[2020-11-05] MEDS: INSULIN ASPART 300 UNIT/3 ML PEN SUBQ SCH ×7 (07:51→22:26)
[2020-11-05] MEDS: INSULIN GLARGINE 300 UNIT/3 ML PEN SUBQ SCH ×2 (07:52→22:23)
[2020-11-05] MEDS: MIDODRINE 2.5 MG TABLET PO SCH ×3 (08:15→22:21)
[2020-11-05] MEDS: ONDANSETRON 4 MG/2 ML VIAL IVP PRN ×2 (08:18→14:00)
[2020-11-05] MEDS: HEPARIN 5,000 UNIT/ML VIAL SUBQ SCH ×2 (10:22→22:21)
[2020-11-05] MEDS: VENLAFAXINE 37.5 MG TABLET PO SCH ×2 (10:32→22:22)
[2020-11-05] MEDS: buPROPion SR 150 MG TABLET PO SCH ×2 (10:32→22:22)
[2020-11-05] MEDS: LACTULOSE 10 GM/15 ML BOTTLE PO SCH ×2 (10:32→22:23)
[2020-11-05] MEDS: oxyCODONE 5 MG TABLET PO PRN ×2 (11:16→22:22)
[2020-11-05] MEDS: MULTIVITAMIN W/MINERALS TABLET PO SCH (11:16)
[2020-11-05] MEDS: SACCHAROMYCES BOULARDII 250 MG CAPSULE PO SCH ×2 (11:16→17:09)
[2020-11-05] MEDS: FERROUS GLUCONATE 324 MG TABLET PO SCH (11:16)
[2020-11-05] MEDS: DOXYCYCLINE 100 MG TABLET PO SCH ×2 (11:27→22:22)
--- NOTE | 2020-11-05 11:28 | PROVIDER PROGRESS NOTE ---
Subjective - Prog Note Date Prog Note Date: 11/05/20 - Subjective Pt reports feeling: No change Subjective: Pt reports his abdomen is feeling better after his paracentesis today but overnight and early this morning he has had increased n/v. Last BM was last night per his report. He has had increased back pain and has so far not been able to tolerate a KUB. Denies other complaints. Has been afebrile. Objective - Vital Signs/Intake & Output Reviewed Vital Signs: Yes Vital Signs: Vital Signs x48h Temp Pulse Resp BP Pulse Ox 11/05/20 07:50 36.5 C 98 16 110/63 94 Intake & Output: Intake & Output 11/02/20 11/03/20 11/04/20 11/05/20 23:59 23:59 23:59 23:59 Intake Total 1240 3525 3347 1078 Output Total 825 1075 88984 1250 Balance 415 8426 -14698 -755 - Objective General Appearance: positive: No acute distress, Alert Eyes Bilateral: positive: PERRL Eyes: OU Scleral icterus ENT: positive: ENT inspection nml, No signs of dehydration Neck: positive: Nml inspection Respiratory: positive: Chest non-tender, No respiratory distress, Breath sounds nml Cardiovascular: positive: Regular rate & rhythm, No murmur, No gallop Abdomen: positive: Non-tender, Nml bowel sounds, Other (mild ascites, umbilical hernia noted.) Skin: positive: Pallor Extremities: positive: Pedal edema Neurologic/Psychiatric: positive: Oriented x3 - Lab Results Fish Bones: 11/05/20 04:40 11/05/20 04:40 Other Labs: Lab Results x24hrs 11/05/20 11/05/20 11/05/20 Range/Units 11:18 07:42 04:40 WBC (4.8-10.8) x10^3/uL RBC (4.70-6.10) 10^6/uL Hgb (14.0-18.0) g/dL Hct (42.0-52.0) % MCV (80.0-94.0) fL MCH (27.0-31.0) pg MCHC (32.0-36.0) g/dL RDW (12.0-15.0) % Plt Count (130-450) 10^3/uL MPV (7.4-11.4) fL Neut # (Auto) (1.5-6.6) 10^3/uL Lymph # (Auto) (1.5-3.5) 10^3/uL Davie # (Auto) (0.0-1.0) 10^3/uL Eos # (Auto) (0.0-0.7) 10^3/uL Baso # (Auto) (0.0-0.1) 10^3/uL Absolute Nucleated RBC x10^3/uL Nucleated RBC % /100WBC Sodium (135-145) mmol/L Potassium (3.5-5.0) mmol/L Chloride (101-111) mmol/L Carbon Dioxide (21-32) mmol/L Anion Gap (6-13) BUN (6-20) mg/dL Creatinine (0.6-1.2) mg/dL Estimated GFR (MDRD) (>89) Glucose (70-100) mg/dL POC Whole Bld Glucose 192 H 188 H (70 - 100) mg/dL Calcium (8.5-10.3) mg/dL Last Dose Date UNKNOWN Last Dose Time UNKNOWN Random Vancomycin 31.7 ug/mL 11/05/20 11/05/20 11/04/20 Range/Units 04:40 04:40 20:42 WBC 12.1 H (4.8-10.8) x10^3/uL RBC 2.26 L (4.70-6.10) 10^6/uL Hgb 7.2 L (14.0-18.0) g/dL Hct 21.7 L (42.0-52.0) % MCV 96.0 H (80.0-94.0) fL MCH 31.9 H (27.0-31.0) pg MCHC 33.2 (32.0-36.0) g/dL RDW 15.7 H (12.0-15.0) % Plt Count 159 (130-450) 10^3/uL MPV 8.6 (7.4-11.4) fL Neut # (Auto) 9.4 H (1.5-6.6) 10^3/uL Lymph # (Auto) 0.8 L (1.5-3.5) 10^3/uL Davie # (Auto) 1.4 H (0.0-1.0) 10^3/uL Eos # (Auto) 0.3 (0.0-0.7) 10^3/uL Baso # (Auto) 0.1 (0.0-0.1) 10^3/uL Absolute Nucleated RBC 0.00 x10^3/uL Nucleated RBC % 0.0 /100WBC Sodium 133 L (135-145) mmol/L Potassium 5.1 H (3.5-5.0) mmol/L Chloride 98 L (101-111) mmol/L Carbon Dioxide 25 (21-32) mmol/L Anion Gap 10.0 (6-13) BUN 100 H* (6-20) mg/dL Creatinine 1.8 H (0.6-1.2) mg/dL Estimated GFR (MDRD) 40 L (>89) Glucose 220 H (70-100) mg/dL POC Whole Bld Glucose 234 H (70 - 100) mg/dL Calcium 8.5 (8.5-10.3) mg/dL Last Dose Date Last Dose Time Random Vancomycin ug/mL 11/04/20 11/04/20 Range/Units 16:36 11:29 WBC (4.8-10.8) x10^3/uL RBC (4.70-6.10) 10^6/uL Hgb (14.0-18.0) g/dL Hct (42.0-52.0) % MCV (80.0-94.0) fL MCH (27.0-31.0) pg MCHC (32.0-36.0) g/dL RDW (12.0-15.0) % Plt Count (130-450) 10^3/uL MPV (7.4-11.4) fL Neut # (Auto) (1.5-6.6) 10^3/uL Lymph # (Auto) (1.5-3.5) 10^3/uL Davie # (Auto) (0.0-1.0) 10^3/uL Eos # (Auto) (0.0-0.7) 10^3/uL Baso # (Auto) (0.0-0.1) 10^3/uL Absolute Nucleated RBC x10^3/uL Nucleated RBC % /100WBC Sodium (135-145) mmol/L Potassium (3.5-5.0) mmol/L Chloride (101-111) mmol/L Carbon Dioxide (21-32) mmol/L Anion Gap (6-13) BUN (6-20) mg/dL Creatinine (0.6-1.2) mg/dL Estimated GFR (MDRD) (>89) Glucose (70-100) mg/dL POC Whole Bld Glucose 275 H 280 H (70 - 100) mg/dL Calcium (8.5-10.3) mg/dL Last Dose Date Last Dose Time Random Vancomycin ug/mL ABX Reporting Has patient been on IV antibiotics over the past 48 hours?: Yes Sepsis Event Note (H) - Evaluation Current Stage of Sepsis: Ruled out Assessment/Plan - Problem List (1) Alcoholic liver failure Impression: 15.3 L removed on paracentesis yesterday, reports he is much more comfortable and is currently denying abdominal pain and tolerated light and deep palpation. The fluid sent for culture yesterday was negative and he does not likely have spontaneous bacterial peritonitis. Albumin replaced last evening for large volume paracentesis. +Asterixis. Receiving lactulose BID, last stool was last night. KUB ordered since no stool this morning, recent paracentesis, and new onset n/v. Mentation improved initially after resuming his frequent lactulose dosing as he was engaging and conversant. Lethargic yesterday but more alert and talkative this morning, still irritable. BUN 100 today (down from 104), Creatinine 1.9 (no change from yesterday). Both are staying in similar range. Keeping at twice daily, even though titrating it to the amount of stools he is having results in worsening encephalopathy. Twice weekly paracenteses stopped prior to admission for approximately6-7 weeks, given that he wants to remain DNR but is refusing hospice and wanting everything done that can be done may need to reschedule him for twice weekly therapeutic paracenteses. He is getting oral thiamine. Seen by Palliative Care 11/02 and signed a POLST, made DNR. Does not want to revisit issue of hospice and is declining hospice services. Receiving Midodrine to raise his BP and Albumin 25g TID with it. (2) Uncontrolled type 2 diabetes mellitus with complication, with long-term current use of insulin Impression: A1C 6.7. Requires assistance from nursing to eat and drink. Yesterday Lantus increased to 40 units in am, 20 units Lantus pm; continued Novolog 7 units with meals in addition to sliding scale Novolog. Blood sugars have been lower (188-220 this morning) so will continue to monitor for now. (3) Nausea & vomiting Impression: 700mL total emesis this morning. Pt reports "it just came up" but is now also endorsing occasional nausea. Some relief noted with Sprite and Zofran. Does not have increased abdominal pain or distention. Unclear if this is related to diabetic gastroparesis or possibly related to his paracentesis since he has also had less stool out today (this is less likely given he is not having any additional abdominal pain this morning and reports sudden onset). A KUB was ordered to assess for air and stool burden in the bowel. Continue prn medications as tolerated. Qualifiers: Vomiting type: bilious vomiting Qualified Code(s): R11.14 - Bilious vomiting (4) Decubitus ulcer, unstageable with infection Impression: He has an unstageable sacral ulcer which has not been visualized today as he refused to turn for inspection. He is refusing turns and spending most of his time supine, with pillows on either side of him. Would benefit from a specialty mattress but this is not an option at this hospital- would benefit from a group 2 low air loss mattress at discharge if available given that the wound will be at least a stage 3 or 4 as it evolves. Lactulose was titrated 11/03 to decrease the number of stools he is having to decrease dressing contamination. Followed by General Surgery. Has been recieving antibiotics for infection, WBC has been hovering in 12-14 range so Vanco was stopped and transitioned to po doxy with pip/tazo continued. Bilateral Heel unstageable pressure injuries. Wounds were visualized yesterday with dressing change. All three heel ulcers consist of dry adherent eschar with attached edges. Mild periwound erythema, blanching, <3cm around. The right posterior heel ulcer is boggy at the center which I believe is a change and he would benefit from a follow up with the Wound Care team providers to see if further debridement is indicated. Hydrofera Blue and Mepilex were continued and the heels were offloaded in the air with pillows as distribution does not have heel protection boots. (5) Leukocytosis Impression: WBC has been ranging 11-14 with one increase to 25 11/03. Has been receiving Pip/Tazo and Vanco but given that his WBC has been consistently elevated the Vanco was stopped and transitioned to po doxy. No growth on micro from the paracentesis. Sacral wound cultures growing proteus mirabilus, klebsiella pneumoniae, and enterococcus faecalus. R heel culture growing the same with addition of citrobacter braakii. Qualifiers: Leukocytosis type: unspecified Qualified Code(s): D72.829 - Elevated white blood cell count, unspecified (6) Hyponatremia Impression: Stable chronic NA of 130-134. 133 today. Continues to request more ice water but his free fluid restriction has been explained. Continue 1800 free fluid/day. Follow BMP daily. (7) CKD (chronic kidney disease) Impression: BUN and creatinine remain elevated, likely due to no continuous IV hydration and free fluid restriction but also may be related to infection/hepatorenal syndrome. Creatining remains 1.9 and BUN remains stable high. Qualifiers: Chronic kidney disease stage: unspecified stage Qualified Code(s): N18.9 - Chronic kidney disease, unspecified (8) Anemia Impression: Continues iron supplements. Hemoglobin stable. Trending daily to every other day. Qualifiers: Anemia type: iron deficiency (9) Anxiety and depression Impression: Less irritable today on my visit this morning. Wellbutrin was continued.
--- NOTE | 2020-11-05 15:28 | XRAY Report ---
PROCEDURE: Abdomen 1 View X-Ray INDICATIONS: vomiting,no BM since yesterday pre-paracentesis TECHNIQUE: 1 view of the abdomen were acquired. COMPARISON: 08/27/2020 FINDINGS: Surgical changes and devices: None. Bowel: No pneumoperitoneum. The bowel gas pattern is normal. Soft tissues: No masses; visualized solid organ contours appear normal in size. No suspicious abdom inal calcifications. The visualized lung bases are within normal limits for supine technique, with a n incomplete inspiratory result. Bones: No suspicious bony abnormalities. Age-appropriate degenerative changes are seen, particularl y involving the hips. IMPRESSION: The bowel gas pattern is nonobstructive. No acute abnormality is seen by plain film. Reviewed by: Reese Richardson MD on 11/05/2020 2:27 PM AILYN Approved by: Reese Richardson MD on 11/05/2020 2:27 PM AILYN Station ID: [id number]
[2020-11-06] MEDS: SODIUM CHLORIDE FLUSH 0.9% 10 ML SYRINGE IVP SCH ×3 (04:34→16:08)
[2020-11-06] MEDS: PIPERACILLIN/TAZOBACTAM 3.375 GM in SODIUM CHLORIDE 0.9% MINIBAG 100 ML IV SCH ×4 (04:34→22:08)
[2020-11-06] MEDS: SODIUM CHLORIDE FLUSH 0.9% 10 ML SYRINGE IVP PRN ×2 (04:37→09:33)
--- NOTE | 2020-11-06 07:33 | PROVIDER PROGRESS NOTE ---
Subjective - Prog Note Date Prog Note Date: 11/06/20 Prog Note Time: 14:39 - Subjective Pt reports feeling: No change Subjective: He tells me that he just hurts all over. He feels miserable. He is nauseated. Had emesis again this morning. But he is not had any black tarry stool. He is tolerating the lactulose. Last bowel movement was yesterday. His abdominal pain due to distention from ascites is much better. Has not recurred. He denies chest pain, cough, shortness of breath. Current Medications - Current Medications Current Medications: Active Medications Albuterol (Albuterol Neb 2.5 Mg/3 Ml) 2.5 mg INH Q4H PRN PRN Reason: Wheezing Last Admin: 10/22/20 01:48 Dose: 2.5 mg Documented by: Bupropion HCl (Bupropion Sr 150 Mg Tablet) 150 mg PO BID [facility] Last Admin: 11/06/20 09:27 Dose: 150 mg Documented by: Doxycycline Hyclate (Doxycycline 100 Mg Tablet) 100 mg PO BID [facility] Last Admin: 11/06/20 09:27 Dose: 100 mg Documented by: Ferrous Gluconate (Ferrous Gluconate 324 Mg Tablet) 324 mg PO DAILYWM [facility] Last Admin: 11/06/20 09:27 Dose: 324 mg Documented by: Heparin Sodium (Porcine) (Heparin 5,000 Unit/Ml Vial) 5,000 unit SUBQ BID [facility] Last Admin: 11/06/20 08:50 Dose: 5,000 unit Documented by: Hydromorphone HCl (Hydromorphone 0.5 Mg/0.5 Ml Syringe) 0.5 mg IVP Q2H PRN PRN Reason: PAIN Last Admin: 11/05/20 14:48 Dose: 0.5 mg Documented by: Piperacillin Sod/Tazobactam (Sod 3.375 gm/ Sodium Chloride) 100 mls @ 200 mls/hr IV Q6H [facility] Last Infusion: 11/06/20 10:25 Dose: Infused Documented by: Insulin Aspart (Insulin Aspart 300 Unit/3 Ml Pen) 3 - 11 unit SUBQ 0800,1200,1700,2100 [facility]; Protocol Last Admin: 11/06/20 11:45 Dose: 3 unit Documented by: Insulin Aspart (Insulin Aspart 300 Unit/3 Ml Pen) 7 unit SUBQ TIDWM [facility] Last Admin: 11/06/20 11:45 Dose: 7 unit Documented by: Insulin Glargine (Insulin Glargine 300 Unit/3 Ml Pen) 40 unit SUBQ 0800 [facility] Last Admin: 11/06/20 08:50 Dose: 40 unit Documented by: Insulin Glargine (Insulin Glargine 300 Unit/3 Ml Pen) 20 unit SUBQ QPM [facility] Last Admin: 11/05/20 22:23 Dose: 20 unit Documented by: Lactulose (Lactulose 10 Gm/15 Ml Bottle) 30 gm PO BID [facility] Last Admin: 11/06/20 09:28 Dose: 30 gm Documented by: Midodrine (Midodrine 2.5 Mg Tablet) 2.5 mg PO TID [facility] Last Admin: 11/06/20 07:36 Dose: 2.5 mg Documented by: Mineral Oil (Min Oil/Dimethicon/Coconut Oil 92 Gm Tube) 1 applic TOP PRN PRN PRN Reason: Skin Care Last Admin: 11/02/20 01:28 Dose: 1 applic Documented by: Multivitamins/Minerals (Multivitamin W/Minerals Tablet) 1 tab PO DAILY [facility] Last Admin: 11/06/20 09:27 Dose: 1 tab Documented by: Ondansetron HCl (Ondansetron 4 Mg/2 Ml Vial) 4 mg IVP Q6HR PRN PRN Reason: Nausea / Vomiting Last Admin: 11/06/20 08:47 Dose: 4 mg Documented by: Oxycodone HCl (Oxycodone 5 Mg Tablet) 5 mg PO Q6HR PRN PRN Reason: PAIN Last Admin: 11/06/20 07:36 Dose: 5 mg Documented by: Saccharomyces Boulardii (Saccharomyces Boulardii 250 Mg Capsule) 250 mg PO BIDWM [facility] Last Admin: 11/06/20 09:27 Dose: 250 mg Documented by: Sodium Chloride (Sodium Chloride Flush 0.9% 10 Ml Syringe) 10 ml IVP PRN PRN PRN Reason: NEEDED PER PROVIDER ORDERS Last Admin: 11/06/20 09:33 Dose: 10 ml Documented by: Sodium Chloride (Sodium Chloride Flush 0.9% 10 Ml Syringe) 10 ml IVP 0100,0900,1700 [facility] Last Admin: 11/06/20 08:47 Dose: 10 ml Documented by: Venlafaxine HCl (Venlafaxine 37.5 Mg Tablet) 37.5 mg PO BID [facility] Last Admin: 11/06/20 09:27 Dose: 37.5 mg Documented by: Albuterol Sulfate [Proair Hfa Inhaler] 1 - 2 puffs INH Q4H PRN 11/13/16 Insulin Glargine,Hum.rec.anlog [Basaglar Kwikpen U-100] 65 units SUBQ DAILY PM 11/13/16 Insulin Regular, Human [Humulin R] 5 - 20 units SUBQ TIDWM 11/13/16 buPROPion HCL [Bupropion HCl Sr] 150 mg PO BID 02/15/20 Venlafaxine ER [Effexor ER] 75 mg PO DAILY 09/15/20 Objective - Vital Signs/Intake & Output Reviewed Vital Signs: Yes Intake & Output: Intake & Output 11/03/20 11/04/20 11/05/20 11/06/20 23:59 23:59 23:59 23:59 Intake Total 3525 3347 2305 340 Output Total 1075 75283 2600 700 Balance 1290 -02412 -295 -360 - Objective General Appearance: positive: Alert, Mild distress (He is nauseated. Asking for nausea medicine. His back hurts he would like some pain medicine. When we try and move him he yells in pain and tells us to leave him alone. He does not want us to examine his decubiti) Eyes Bilateral: positive: PERRL, EOMI, Other (Mild scleral icterus.) ENT: positive: No signs of dehydration Neck: positive: No JVD. negative: Stiff neck Respiratory: positive: No respiratory distress, Other (Very slow, unlabored, shallow respirations. Almost no air movement. But he appears comfortable.). negative: Wheezes, Rales, Rhonchi Cardiovascular: positive: Regular rate & rhythm. negative: Gallop/S4, Friction rub Abdomen: positive: Nml bowel sounds, Tenderness (Mild and diffuse.), Other (When he is full of fluid, he will be very distended, tympanic. Right now abdominal wall is soft but you can still feel like fluid wave). negative: Guarding, Rebound Skin: positive: Warm, Dry Extremities: positive: Full ROM, Pedal edema Neurologic/Psychiatric: positive: CN's nml (2-12), Disoriented to time. negative: Motor nml (Slow, slow response time. Slow psychomotor changes. Asterixis was present for the last few days.) - Lab Results Fish Bones: 11/06/20 07:46 11/06/20 07:46 Other Labs: Lab Results x24hrs 11/05/20 11/05/20 11/05/20 Range/Units 20:44 16:53 11:18 POC Whole Bld Glucose 151 H 192 H 192 H (70 - 100) mg/dL 11/05/20 Range/Units 07:42 POC Whole Bld Glucose 188 H (70 - 100) mg/dL ABX Reporting Has patient been on IV antibiotics over the past 48 hours?: Yes Sepsis Event Note (H) - Evaluation Current Stage of Sepsis: Ruled out Assessment/Plan - Problem List (1) Alcoholic liver disease Impression: He has had paracentesis twice. The first 1 was 12 L. And the second 1 was 15 L on November 04. It does help temporarily. His abdominal pain and misery improves. Culture does not show spontaneous bacterial peritonitis. I gave him albumin for large volume paracentesis. Lactulose is twice daily. Had nausea and vomiting yesterday and KUB done to make sure that was stable and there was no free air or dilated bowel. Very irritable. Today he continues to have nausea and vomiting. But his numbers are moving in the right direction. BUN is coming down as his creatinine. He is on the midodrine and albumin. Labs from this morning BUN 94, creatinine 1.5. Sodium 133. Potassium 5.2 Plan: Schedule paracentesis for Mondays and with it to start of this week since today is Friday. Continue midodrine and albumin to help with end-stage liver disease. (2) Uncontrolled type 2 diabetes mellitus with complication, with long-term current use of insulin Impression: A1C 6.7. Requires assistance from nursing to eat and drink. 11/04 Lantus increased to 40 units in am, 20 units Lantus pm; continued Novolog 7 units with meals in addition to sliding scale Novolog. Glucose 188, 192 and 151 yesterday. Much improved from the 400s or 300s that he was for this week. We will review today's glucose. Plan:Probably no change on his insulin depending on today's glucose (3) Nausea & vomiting Impression: 700mL total emesis 11/05. None since then. No fever and WBC the same. No SBP on C&S. Pt reports "it just came up" but is now also endorsing occasional nausea. Some relief noted with Sprite and Zofran. He did not have increased abdominal pain or distention. Unclear if this is related to diabetic gastroparesis or possibly related to his paracentesis since he has also had less stool out today (this is less likely given he is not having any additional abdominal pain this morning and reports sudden onset). A KUB was ordered to assess for air and stool burden in the bowel and was negative for free air or dilated bowel. Plan: continue anitemetics and I added phenergan and compazine to the zofran Qualifiers: Vomiting type: bilious vomiting Qualified Code(s): R11.14 - Bilious vomiting (4) Decubitus ulcer, unstageable with infection Impression: He has an unstageable sacral ulcer which has not been visualized 11/05 as he refused to turn for inspection. He is refusing turns and spending most of his time supine, with pillows on either side of him. Would benefit from a specialty mattress but this is not an option at this hospital- would benefit from a group 2 low air loss mattress at discharge if available given that the wound will be at least a stage 3 or 4 as it evolves. Lactulose was titrated 11/03 to decrease the number of stools he is having to decrease dressing contamination. Followed by General Surgery. Has been recieving antibiotics for infection, WBC has been hovering in 12-14 range so Vanco was stopped 11/05 and transitioned to po doxy with pip/tazo continued. Bilateral Heel unstageable pressure injuries. Wounds were visualized 11/04 with dressing change. All three heel ulcers consist of dry adherent eschar with attached edges. Mild periwound erythema, blanching, <3cm around. The right posterior heel ulcer is boggy at the center which I believe is a change and he would benefit from a follow up with the Wound Care team providers to see if further debridement is indicated. Hydrofera Blue and Mepilex were continued and the heels were offloaded in the air with pillows as distribution does not have heel protection boots. Plan: there is no Wound service on weekends. Will contact them today. (5) Leukocytosis Impression: WBC has been ranging 11-14 with one increase to 25 11/03. Has been receiving Pip/Tazo and Vanco but given that his WBC has been consistently elevated the Vanco was stopped and transitioned to po doxy. No growth on micro from the paracentesis. Sacral wound cultures growing proteus mirabilus, klebsiella pneumoniae, and enterococcus faecalus. R heel culture growing the same with addition of citrobacter braakii. Plan: keep monitoring for signs and symptoms of other causes such as UTI, pneumonia or SBP. So far those have not shown up Qualifiers: Leukocytosis type: unspecified Qualified Code(s): D72.829 - Elevated white blood cell count, unspecified (6) Hyponatremia Impression: Stable chronic NA of 130-134. 133 11/04. Continues to request more ice water but his free fluid restriction has been explained. Continue 1800 free fluid/day. Follow BMP daily. (7) CKD (chronic kidney disease) Impression: BUN and creatinine have climbed since October 28. He has received 2 large volume paracentesis. In an effort to combat hepatorenal failure predisposition, I have been giving him midodrine, albumin. Although they are high,BUN and creatinine have peaked. Are slowly starting to come down. Plan: Continue to monitor Continue lactulose Continue fluid restriction of free water Qualifiers: Chronic kidney disease stage: unspecified stage Qualified Code(s): N18.9 - Chronic kidney disease, unspecified (8) Anemia Impression: Continues iron supplements. Hemoglobin stable. Trending daily to every other day. Qualifiers: Anemia type: iron deficiency (9) Anxiety and depression Impression: Less irritable today on my visit this morning. Wellbutrin was continued.
[2020-11-06] MEDS: oxyCODONE 5 MG TABLET PO PRN (07:36)
[2020-11-06] MEDS: MIDODRINE 2.5 MG TABLET PO SCH ×3 (07:36→21:56)
[2020-11-06 07:52] LABS: BASOPHILS # (AUTO) 0.1 10^3/uL (0.0-0.1); BASOPHILS % (AUTO) 1.3 %; EOSINOPHILS # (AUTO) 0.3 10^3/uL (0.0-0.7); EOSINOPHILS % (AUTO) 2.3 %; HGB - HEMOGLOBIN 8.5 g/dL (14.0-18.0); LYMPHOCYTES # (AUTO) 0.8 10^3/uL (1.5-3.5); LYMPHOCYTES % (AUTO) 7.7 %; MEAN CORPUSCULAR HEMOGLOBIN 31.6 pg (27.0-31.0); MEAN CORPUSCULAR HGB CONC 32.7 g/dL (32.0-36.0); MEAN CORPUSCULAR VOLUME 96.7 fL (80.0-94.0); MEAN PLATELET VOLUME 9.1 fL (7.4-11.4); MONOCYTES # (AUTO) 1.3 10^3/uL (0.0-1.0); MONOCYTES % (AUTO) 11.6 %; NEUTROPHILS # (AUTO) 8.3 10^3/uL (1.5-6.6); NEUTROPHILS % (AUTO) 76.7 %; PLT - PLATELET COUNT 173 10^3/uL (130-450); RED BLOOD COUNT 2.69 10^6/uL (4.70-6.10); RED CELL DISTRIBUTION WIDTH 15.9 % (12.0-15.0); WHITE BLOOD COUNT 10.8 x10^3/uL (4.8-10.8)
[2020-11-06 08:09] LABS: CALCIUM 8.5 mg/dL (8.5-10.3); CREATININE 1.5 mg/dL (0.6-1.2); POTASSIUM 5.2 mmol/L (3.5-5.0)
[2020-11-06] MEDS: ONDANSETRON 4 MG/2 ML VIAL IVP PRN (08:47)
[2020-11-06] MEDS: INSULIN ASPART 300 UNIT/3 ML PEN SUBQ SCH ×7 (08:49→22:00)
[2020-11-06] MEDS: INSULIN GLARGINE 300 UNIT/3 ML PEN SUBQ SCH ×2 (08:50→21:59)
[2020-11-06] MEDS: HEPARIN 5,000 UNIT/ML VIAL SUBQ SCH ×2 (08:50→22:06)
[2020-11-06] MEDS: DOXYCYCLINE 100 MG TABLET PO SCH ×2 (09:27→21:56)
[2020-11-06] MEDS: buPROPion SR 150 MG TABLET PO SCH ×2 (09:27→21:56)
[2020-11-06] MEDS: FERROUS GLUCONATE 324 MG TABLET PO SCH (09:27)
[2020-11-06] MEDS: SACCHAROMYCES BOULARDII 250 MG CAPSULE PO SCH ×2 (09:27→17:59)
[2020-11-06] MEDS: VENLAFAXINE 37.5 MG TABLET PO SCH ×2 (09:27→21:56)
[2020-11-06] MEDS: MULTIVITAMIN W/MINERALS TABLET PO SCH (09:27)
[2020-11-06] MEDS: LACTULOSE 10 GM/15 ML BOTTLE PO SCH ×2 (09:28→22:29)
[2020-11-06] MEDS ORDERED: VANCOMYCIN INJ 1 GM in SODIUM CHLORIDE 0.9% 250 ML IV SCH (12:00)
[2020-11-07] MEDS: SODIUM CHLORIDE FLUSH 0.9% 10 ML SYRINGE IVP SCH ×3 (01:00→16:59)
[2020-11-07] MEDS: PIPERACILLIN/TAZOBACTAM 3.375 GM in SODIUM CHLORIDE 0.9% MINIBAG 100 ML IV SCH (03:41)
[2020-11-07] MEDS: oxyCODONE 5 MG TABLET PO PRN ×3 (03:42→22:12)
[2020-11-07 05:14] LABS: BASOPHILS # (AUTO) 0.1 10^3/uL (0.0-0.1); BASOPHILS % (AUTO) 0.9 %; EOSINOPHILS # (AUTO) 0.2 10^3/uL (0.0-0.7); EOSINOPHILS % (AUTO) 1.7 %; HCT - HEMATOCRIT 25.6 % (42.0-52.0); HGB - HEMOGLOBIN 8.4 g/dL (14.0-18.0); LYMPHOCYTES # (AUTO) 0.7 10^3/uL (1.5-3.5); LYMPHOCYTES % (AUTO) 5.8 %; MEAN CORPUSCULAR HEMOGLOBIN 31.6 pg (27.0-31.0); MEAN CORPUSCULAR HGB CONC 32.8 g/dL (32.0-36.0); MEAN CORPUSCULAR VOLUME 96.2 fL (80.0-94.0); MEAN PLATELET VOLUME 8.5 fL (7.4-11.4); MONOCYTES # (AUTO) 1.1 10^3/uL (0.0-1.0); MONOCYTES % (AUTO) 9.5 %; NEUTROPHILS # (AUTO) 9.5 10^3/uL (1.5-6.6); NEUTROPHILS % (AUTO) 81.7 %; PLT - PLATELET COUNT 184 10^3/uL (130-450); RED BLOOD COUNT 2.66 10^6/uL (4.70-6.10); RED CELL DISTRIBUTION WIDTH 16.1 % (12.0-15.0); WHITE BLOOD COUNT 11.7 x10^3/uL (4.8-10.8)
[2020-11-07 05:24] LABS: CALCIUM 8.2 mg/dL (8.5-10.3); CREATININE 1.6 mg/dL (0.6-1.2); POTASSIUM 4.9 mmol/L (3.5-5.0)
[2020-11-07] MEDS: MIDODRINE 2.5 MG TABLET PO SCH ×3 (06:20→21:53)
--- NOTE | 2020-11-07 08:43 | PROVIDER PROGRESS NOTE ---
Subjective - Prog Note Date Prog Note Date: 11/07/20 Prog Note Time: 08:40 - Subjective Pt reports feeling: No change (feel like crap, just weak, "dont have the need nor desire to eat", . Might eat some tangerine slices. Denies nausea currently but reports getting antiemetic (last zofran . no sob acknowledges he understands mother unable to care for him at home) Current Medications - Current Medications Current Medications: Active Medications Generic Name Dose Route Start Last Admin Trade Name Freq PRN Reason Stop Dose Admin Albuterol 2.5 mg 10/22/20 01:37 10/22/20 01:48 Albuterol Neb 2.5 Mg/3 Ml INH 2.5 mg Q4H PRN Administration Wheezing Bupropion HCl 150 mg 10/22/20 02:00 11/06/20 21:56 Bupropion Sr 150 Mg Tablet PO 150 mg BID [facility] Administration Doxycycline Hyclate 100 mg 11/05/20 12:00 11/06/20 21:56 Doxycycline 100 Mg Tablet PO 100 mg BID [facility] Administration Ferrous Gluconate 324 mg 10/26/20 08:00 11/06/20 09:27 Ferrous Gluconate 324 Mg Tablet PO 324 mg DAILYWM [facility] Administration Heparin Sodium (Porcine) 5,000 unit 10/25/20 21:00 11/06/20 22:06 Heparin 5,000 Unit/Ml Vial SUBQ 5,000 unit BID [facility] Administration Hydromorphone HCl 0.5 mg 10/26/20 10:36 11/05/20 14:48 Hydromorphone 0.5 Mg/0.5 Ml Syringe IVP 0.5 mg Q2H PRN Administration PAIN Piperacillin Sod/Tazobactam 100 mls @ 200 mls/hr 10/28/20 10:00 11/07/20 04:15 Sod 3.375 gm/ Sodium Chloride IV Infused Q6H [facility] Infusion Insulin Aspart 3 - 11 unit 10/30/20 21:15 11/06/20 22:00 Insulin Aspart 300 Unit/3 Ml Pen SUBQ 3 unit 0800,1200,1700,2100 [facility] Administration Protocol Insulin Aspart 7 unit 11/03/20 17:00 11/06/20 17:14 Insulin Aspart 300 Unit/3 Ml Pen SUBQ Not Given TIDWM [facility] Insulin Glargine 40 unit 11/05/20 08:00 11/06/20 08:50 Insulin Glargine 300 Unit/3 Ml Pen SUBQ 40 unit 0800 [facility] Administration Insulin Glargine 20 unit 11/04/20 21:00 11/06/20 21:59 Insulin Glargine 300 Unit/3 Ml Pen SUBQ 20 unit QPM [facility] Administration Lactulose 30 gm 11/01/20 09:00 11/06/20 22:29 Lactulose 10 Gm/15 Ml Bottle PO Not Given BID [facility] Midodrine 2.5 mg 11/03/20 14:00 11/07/20 06:20 Midodrine 2.5 Mg Tablet PO 2.5 mg TID [facility] Administration Mineral Oil 1 applic 10/31/20 18:48 11/02/20 01:28 Min Oil/Dimethicon/Coconut Oil 92 Gm Tube TOP 1 applic PRN PRN Administration Skin Care Multivitamins/Minerals 1 tab 10/26/20 09:00 11/06/20 09:27 Multivitamin W/Minerals Tablet PO 1 tab DAILY [facility] Administration Ondansetron HCl 4 mg 10/25/20 12:29 11/06/20 08:47 Ondansetron 4 Mg/2 Ml Vial IVP 4 mg Q6HR PRN Administration Nausea / Vomiting Oxycodone HCl 5 mg 10/29/20 17:23 11/07/20 03:42 Oxycodone 5 Mg Tablet PO 5 mg Q6HR PRN Administration PAIN Saccharomyces Boulardii 250 mg 10/28/20 08:00 11/06/20 17:59 Saccharomyces Boulardii 250 Mg Capsule PO 250 mg BIDWM [facility] Administration Sodium Chloride 10 ml 10/25/20 12:29 11/06/20 09:33 Sodium Chloride Flush 0.9% 10 Ml Syringe IVP 10 ml PRN PRN Administration NEEDED PER PROVIDER ORDERS Sodium Chloride 10 ml 10/25/20 17:00 11/07/20 01:00 Sodium Chloride Flush 0.9% 10 Ml Syringe IVP 10 ml 0100,0900,1700 [facility] Administration Venlafaxine HCl 37.5 mg 10/22/20 02:00 11/06/20 21:56 Venlafaxine 37.5 Mg Tablet PO 37.5 mg BID [facility] Administration Albuterol Sulfate [Proair Hfa Inhaler] 1 - 2 puffs INH Q4H PRN 11/13/16 Insulin Glargine,Hum.rec.anlog [Basaglar Kwikpen U-100] 65 units SUBQ DAILY PM 11/13/16 Insulin Regular, Human [Humulin R] 5 - 20 units SUBQ TIDWM 11/13/16 buPROPion HCL [Bupropion HCl Sr] 150 mg PO BID 02/15/20 Venlafaxine ER [Effexor ER] 75 mg PO DAILY 09/15/20 Objective - Vital Signs/Intake & Output Reviewed Vital Signs: Yes Vital Signs: Vital Signs x48h Temp Pulse Resp BP Pulse Ox 11/07/20 07:31 36.6 C 86 16 114/68 98 Intake & Output: # stools not in I/O but lactulose held last pmIntake & Output 11/04/20 11/05/20 11/06/20 11/07/20 23:59 23:59 23:59 23:59 Intake Total 3347 2305 1462 637 Output Total 02270 2600 1900 500 Balance -74531 -295 -438 137 - Objective General Appearance: positive: No acute distress, Alert (not 100 % alert, but not drowsy nor somnulent), Other (lying flat in bed, awake, alert cooperative, despite saying he "feels like crap", is pleasant today. Seems just tired) Respiratory: positive: Chest non-tender, No respiratory distress, Breath sounds nml Cardiovascular: positive: Regular rate & rhythm, No murmur Abdomen: positive: Non-tender, No organomegaly, Nml bowel sounds. negative: No distention (full rounded abdomen w/ bulging flanks, SOFT, nontender, umbilical hernia, no caput medusae, + fluid wave, NOT taut), Guarding, Rebound Neurologic/Psychiatric: negative: Oriented x3 (2021 for year, stated it was fall, appropriate in coversation , follows commands, Sl asterixis) - Lab Results Fish Bones: 11/08/20 06:41 11/08/20 06:41 Other Labs: Lab Results x24hrs 11/07/20 11/07/20 11/07/20 Range/Units 07:27 05:06 05:06 WBC 11.7 H (4.8-10.8) x10^3/uL RBC 2.66 L (4.70-6.10) 10^6/uL Hgb 8.4 L (14.0-18.0) g/dL Hct 25.6 L (42.0-52.0) % MCV 96.2 H (80.0-94.0) fL MCH 31.6 H (27.0-31.0) pg MCHC 32.8 (32.0-36.0) g/dL RDW 16.1 H (12.0-15.0) % Plt Count 184 (130-450) 10^3/uL MPV 8.5 (7.4-11.4) fL Neut # (Auto) 9.5 H (1.5-6.6) 10^3/uL Lymph # (Auto) 0.7 L (1.5-3.5) 10^3/uL [place] # (Auto) 1.1 H (0.0-1.0) 10^3/uL Eos # (Auto) 0.2 (0.0-0.7) 10^3/uL Baso # (Auto) 0.1 (0.0-0.1) 10^3/uL Absolute Nucleated RBC 0.00 x10^3/uL Nucleated RBC % 0.0 /100WBC Sodium 133 L (135-145) mmol/L Potassium 4.9 (3.5-5.0) mmol/L Chloride 97 L (101-111) mmol/L Carbon Dioxide 25 (21-32) mmol/L Anion Gap 11.0 (6-13) BUN 84 H* (6-20) mg/dL Creatinine 1.6 H (0.6-1.2) mg/dL Estimated GFR (MDRD) 46 L (>89) Glucose 156 H (70-100) mg/dL POC Whole Bld Glucose 174 H (70 - 100) mg/dL Calcium 8.2 L (8.5-10.3) mg/dL 11/06/20 11/06/20 11/06/20 Range/Units 20:58 16:33 11:07 WBC (4.8-10.8) x10^3/uL RBC (4.70-6.10) 10^6/uL Hgb (14.0-18.0) g/dL Hct (42.0-52.0) % MCV (80.0-94.0) fL MCH (27.0-31.0) pg MCHC (32.0-36.0) g/dL RDW (12.0-15.0) % Plt Count (130-450) 10^3/uL MPV (7.4-11.4) fL Neut # (Auto) (1.5-6.6) 10^3/uL Lymph # (Auto) (1.5-3.5) 10^3/uL [place] # (Auto) (0.0-1.0) 10^3/uL Eos # (Auto) (0.0-0.7) 10^3/uL Baso # (Auto) (0.0-0.1) 10^3/uL Absolute Nucleated RBC x10^3/uL Nucleated RBC % /100WBC Sodium (135-145) mmol/L Potassium (3.5-5.0) mmol/L Chloride (101-111) mmol/L Carbon Dioxide (21-32) mmol/L Anion Gap (6-13) BUN (6-20) mg/dL Creatinine (0.6-1.2) mg/dL Estimated GFR (MDRD) (>89) Glucose (70-100) mg/dL POC Whole Bld Glucose 154 H 74 146 H (70 - 100) mg/dL Calcium (8.5-10.3) mg/dL Sepsis Event Note (H) - Evaluation Current Stage of Sepsis: Ruled out Assessment/Plan - Problem List (1) Alcoholic liver disease Impression: (1) Alcoholic liver disease Impression: /Cirrhosis + ascites, hx encephalopathy, known varies, Alb 3.0 (10/21), Tbilie 3.1 admit 10/21>>1.7 10/31 and HCC followed at [facility] Stable on current plan s/p paracentesis x 2 since admit for 12L and 15 L (last ) with albumin for large volume paracentesis w/ improvement in symptoms of abdominal pain/ general discomfort. Peritoneal fluid Cultures negative/ no SBP. Lactulose dosing closer to goal stools now, and has been awake last several days.ly. Still some nausea There was some concern for hepatorenal syndrome. His BUN and Cr have improved and stable w/ midodrine and albumin. Currently not on lasix / spironolactone (was not on before admit either) . Visit today by Mom ok'd by nursing hotel services supervisor re: [facility] covid restrictions Current plan; [facility] notes likely able to d/c to [facility] in [place] tomorrow 11/08 Scheduled paracentesis for Mondays and with it to start Continue midodrine 2.5 mg TID and albumin w/ paracentesis to help reduce risk of hepatorenal syndrome Fluid restriction of 1800 cc/ day (50/50 nursing amount and dietary) Symptom management for nausea/vomiting includes prn zofran, prn compazine (added today; KUB on 11/05 no obstrucctive findings No findings to suggest SBP , not on Rifaximin; consider adding (2) Uncontrolled type 2 diabetes mellitus with complication, with long-term current use of insulin Impression: glucoses had been in the 300's and 400's on presentation A1C 6.7 last FSBG 146, 74(4p 11/06) 154, 174 on lantus 20 u q pm and 40 u q am, S Morning glucose a bit more tighltly controlled than needed for this man. 11/04 Lantus increased to 40 units in am, 20 units Lantus pm; Noted 4p glucose 11/06 ~ 70. This morning and evening glucose mid 80's. May reduce PM dosing Requires assistance from nursing to eat and drink. Plan continui g qam lantus 40 units; STOPPING pm dose of 20 unit lantus Does not require tight glucose control at this stage; Goal 140-180 continued Novolog 7 units with meals in addition to sliding scale Novolog. Glucose 188, 192 and 151 yesterday. Much improved from the 400s or 300s that he was for this week. (4) Decubitus ulcer, unstageable with infection Impression: Unstageable sacral ulcer/ not been visualized 11/05 as he refused to turn for inspection. Followed by general surgery, no osteo on MRI 10/25 . Day 10 of piptazo for polymicrobial wound (nonsurgical culture) and vanco was changed to doxy 11/05) Stopping antibiotics today Leukocytosis on presentation 12.1>>> 25.8, was presumed due to infection; Stable 11.7. No bands Often refusing turns/position changes/mostly supine w/ pillows either sidetime supine, Specialty mattress (group 2 low air loss mattress) nnot available here but would be benefitial if available at discharge (per clinical research specialist) would benefit from a group 2 low air loss mattress at discharge if available given that the wound will be at least a stage 3 or 4 as it evolves. Lactulose was titrated 11/03 to decrease the number of stools he is having to decrease dressing contamination. Wound care note from 10/30 Wound #1: sacral region "unstageable pressure injury. Wound bed is 100% black necrotic stringy slough th at is firmly attached. The pressure injury measures approx 8 x 5 x 2. Minimal drainage noted with a foul odor. No undermining, no tunneling. The periwound presents very friable and bleeds with minimal stimulation. There is blanchable erythema extending approximately 10-12cm beyond the wound. The wound was cultured and dressed with hydrofera blue and a plain foam sacral border dressing. The dressing should be changed in three days. Will continue w/ recommendation to change ~ q 3 days unless soiled sooner Bilateral Heel unstageable pressure injuries. Wounds were visualized 11/04 with dressing change. All three heel ulcers consist of dry adherent eschar with attached edges. Mild periwound erythema, blanching, <3cm around. The right posterior heel ulcer is boggy at the center which I believe is a change and he would benefit from a follow up with the Wound Care team providers to see if further debridement is indicated. Hydrofera Blue and Mepilex were continued and the heels were offloaded in the air with pillows as [facility] does not have heel protection boots. (6) Hyponatremia related to cirrhosis Impression: Mild on presentation at 129 on 10/24, 10/25; stable at 133 As above, he is not currently on lasix or spironolactone Fluid restriction as above 1800 cc (7) CKD (chronic kidney disease) Impression: BUN and creatinine persistently 80-100 BUN/ Cr have climbed since October 28. Stable H/H / no melena to suggest GIB as source of BUN increase Fluid shifts after 2 large volume paracentesis (12, and 15 L as above) may have contributed. . In an effort to combat hepatorenal failure predisposition, midodrine was added, midodrine, albumin. Although they are high,BUN and creatinine have peaked. Are slowly starting to come down. Cr 1.5, 1.6 11/06 and 11/07 (8) Anemia Impression: H/H stable 8.8/26.2, 8.2/25/5, 8.5/25.4 above no signs of acute or occult bleeding (9) Anxiety and depression Impression: stable on Wellbutrin, Occasionally irritable, Dispo, likely able to d/c to [place] [facility] on Wed
[2020-11-07] MEDS: ONDANSETRON 4 MG/2 ML VIAL IVP PRN ×2 (08:44→16:59)
[2020-11-07] MEDS: INSULIN GLARGINE 300 UNIT/3 ML PEN SUBQ SCH (08:45)
[2020-11-07] MEDS: INSULIN ASPART 300 UNIT/3 ML PEN SUBQ SCH ×7 (08:45→20:25)
[2020-11-07] MEDS: DOXYCYCLINE 100 MG TABLET PO SCH (09:55)
[2020-11-07] MEDS: buPROPion SR 150 MG TABLET PO SCH ×2 (09:56→21:53)
[2020-11-07] MEDS: FERROUS GLUCONATE 324 MG TABLET PO SCH (09:56)
[2020-11-07] MEDS: MULTIVITAMIN W/MINERALS TABLET PO SCH (09:56)
[2020-11-07] MEDS: SACCHAROMYCES BOULARDII 250 MG CAPSULE PO SCH ×2 (09:56→16:59)
[2020-11-07] MEDS: LACTULOSE 10 GM/15 ML BOTTLE PO SCH ×2 (09:57→21:53)
[2020-11-07] MEDS: VENLAFAXINE 37.5 MG TABLET PO SCH ×2 (10:09→21:53)
[2020-11-07] MEDS: HEPARIN 5,000 UNIT/ML VIAL SUBQ SCH ×2 (10:17→22:16)
[2020-11-07] MEDS: SODIUM CHLORIDE FLUSH 0.9% 10 ML SYRINGE IVP PRN ×2 (13:33→21:53)
[2020-11-07] MEDS: HYDROmorphone 0.5 MG/0.5 ML SYRINGE IVP PRN ×2 (13:33→21:53)
[2020-11-07] MEDS ORDERED: PROCHLORPERAZINE 10 MG/2 ML VIAL IVP PRN (14:11)
--- NOTE | 2020-11-07 20:15 | Discharge Plan ---
"Discharge Plan for SNF / [facility] - Discharge Plan And Transition Orders Problem Reviewed?: Yes Disposition: 03 SNF DC/Xfer Condition: Fair Allergies and Adverse Reactions: Allergies Allergy/AdvReac Type Severity Reaction Status Date / Time cantaloupe Allergy Anaphylaxis Verified 10/21/20 08:33 melon Allergy Anaphylaxis Verified 10/21/20 08:33 lisinopril AdvReac Respiratory Verified 10/21/20 08:33 Health Concerns: Cirrhosis with complication of ascites, encephalopathy (on lactulose), known esophageal varices, Sacral decubitus (unstageable) Heel decubitus bilateral Diabetes Mellitus Urinary retention/ indwelling nagy catheter Hyponatremia (resolved) Chronic kidney disease (BUN/Cr on discharge Anxiety/ Depression on Venlafaxine Plan of Treatment: Discharge to [facility] Continue supportive care for decompensated cirrhosis Lactulose w/ goal 2-3 BM's daily Twice weekly (plan Friday and ) paracentesis for comfort (or as indicated based on exam) with albumin Midodrine 2.5 mg TID to help Fluid restriction 1.8 L daily 2 gram salt diet (with his poor PO intake, he likely does not come close to 2 grams Wound care to sacral decubitus; if possible air flow bed Turn side to side (when possible, patient tends to refuse position change, tends to return to supine) Care to R heel decubitus; float heels if possible Indwelling Nagy catheter care Care Goals: Avoid further decompensated cirrhosis (avoid infection, avoid constipation, no sedating medication, adequate hydration w/in limits of fluid restriction, 2-3 BM's per day with lactulose. Ongoing wound care to sacrum and heels/ Details below If possible in facility for sacral decub; group 2 low air loss mattress If patient again becomes encephalopathic, mother as MDPOA at that time may consider changing to comfort care - SNF / PENITENTIARY Transition Orders Admit to (Facility): [facility] in [place], [place] Discharge Diagnosis: Decompensated alcoholic liver cirrhosis (ascites, hepatic encephalopathy controlled on lactulose, known nonbleeding esophageal varices. Chronic kidney disease; not yet consistent with hepatorenal syndrome, but borderline and on midodrine Sacral and bilateral heel decubitus; no osteomyelitis on MRI of sacrum or heels Cellulitis of sacral decubitus, no osteomyelitis on MRI ; completed antibiotics Diabetes Mellitus: A1C 6.7 History of urinary retention; chronic Indwelling Nagy catheter Medicare Certification Statement: I certify that Post Hospital detention care is medically necessary on a continuing basis for any of the conditions for which she/he is receiving care during hospitalization. Notify PCP of admission and forward orders to primary provider for signature. Weight on admission and: Weekly Other Notification Orders: Call PCP immediately if patient develops dyspnea, chest pain/tightness or edema. House Bowel Program: No Additional Bowel Program Orders: If no BM after 2 days, nurse may give M.O.M. 30ml PO PRN and/or ducolax Supp 1 MD and/or NASRIN 250mg P.O., and/or senna 1-2 tabs PO. On day 3 nurse may give repeat above order until residents constipation is resolved. Annual Influenza Vaccine (between Nov 15 and June 14): Yes Two-step PPD per [facility] [id number] or approved exception documents: Yes Treatments & Other Orders: Wound care to sacrum; Hydrofera blue and Mepilex dressings to bilateral heels and sacrum. Wrap heels with kerlex. crocker q 3 days. Wound care to heels;Hydrofera Blue and Mepilex dressings to bilateral heels. Offload heels in thee air with pillows OR heel protection boots if available. Oxygen Orders: has not had oxygen requirement Lab Tests or X-ray Orders: consider weekly or biweekly chemistry panel/ cbc but currently labs stable, avoid iatrogenic blood loss; additional blood work not currently indicated Orthopedic Orders: n/a Medication Orders: PLEASE REFER TO THE DISCHARGE MEDICATION LIST. Insulin Orders?: Yes - Medications New Prescriptions: Albumin 25% [Albuminar-25] 12.5 gm IV ONCE PRN #4 vial PRN Reason: As Needed Per Provider Orders Insulin Glargine [Lantus Solostar] 10 unit SUBQ HS #1 vial Midodrine [ProAmatine] 2.5 mg PO TID #90 tablet oxyCODONE [Roxicodone] 5 mg PO Q6H PRN #20 tablet PRN Reason: Pain 5-7 Ondansetron [Zuplenz] 4 mg PO Q6H PRN #30 tab PRN Reason: Nausea / Vomiting - Diet Type: 2 gram Na Texture: Mech soft Liquids: Thin (1.8 Liter fluid restriction) May have monthly special meal: Yes - Therapies | Activity Rehabilitation Potential: Maximize functional status Activity: Activity as Tolerated Weight Bearing: Full Weight (has been staying in bed; out of bed to chair as tolerated) Insulin Orders - SNF Basal | Correction | Custom Orders: Diagnosis: Diabetes Initiate hypo and hyperglycemia protocols for BG <70 and BG >375. May check BG PRN for signs/symptoms of dysglycemia. Frequency of BG checks: [AC/Meal/HS] Basal Insulin: [x] Lantus 100 units / ml inject subq as follows: [Lantus 35 units q am/ 10 units qpm (this was reduced from 40 u qam/20 u q pm on 11/07] [] Other: [] Correction Insulin: - Select the type of insulin below [Choose: Novolog/Humalog]100 units /ml insulin inject subq per orders indicate below [x] LOW DOSE [] MODERATE DOSE [] MODERATE/HIGH DOSE [] HIGH DOSE GB UNITS GB UNITS GB UNITS GB UNITS 61-140 0 UNITS 61-140 0 UNITS 61-140 0 UNITS 61-140 0 UNITS 141-175 1 UNITS 141-175 1 UNITS 141-175 2 UNITS 141-175 3 UNITS 176-225 2 UNITS 176-225 3 UNITS 176-225 4 UNITS 176-225 5 UNITS 226-275 3 UNITS 226-275 5 UNITS 226-275 6 UNITS 226-275 7 UNITS 276-325 4 UNITS 276-325 7 UNITS 276-325 8 UNITS 276-325 9 UNITS 326-375 5 UNITS 326-375 9 UNITS 326-375 10 UNITS 326-375 11 UNITS >375 CONTACT MD >375 CONTACT MD >375 CONTACT MD >375 CONTACT MD Custom Dosing: [Choose: Novolog/Humalog] 100 units/ml Insulin inject subq as follows: GB Units 61-140 [] Units 141-175 [] Units 176-225 [] Units 226-275 [] Units 276-325 []Units 326-375 [] Units >375 Contact MD"
[2020-11-08] MEDS: SODIUM CHLORIDE FLUSH 0.9% 10 ML SYRINGE IVP SCH ×2 (04:13→08:08)
[2020-11-08] MEDS: MIDODRINE 2.5 MG TABLET PO SCH (05:24)
[2020-11-08 06:47] LABS: BASOPHILS # (AUTO) 0.2 10^3/uL (0.0-0.1); BASOPHILS % (AUTO) 1.4 %; EOSINOPHILS # (AUTO) 0.2 10^3/uL (0.0-0.7); EOSINOPHILS % (AUTO) 1.4 %; HCT - HEMATOCRIT 28.8 % (42.0-52.0); HGB - HEMOGLOBIN 9.1 g/dL (14.0-18.0); LYMPHOCYTES # (AUTO) 0.9 10^3/uL (1.5-3.5); LYMPHOCYTES % (AUTO) 7.3 %; MEAN CORPUSCULAR HEMOGLOBIN 31.4 pg (27.0-31.0); MEAN CORPUSCULAR HGB CONC 31.6 g/dL (32.0-36.0); MEAN CORPUSCULAR VOLUME 99.3 fL (80.0-94.0); MEAN PLATELET VOLUME 8.9 fL (7.4-11.4); MONOCYTES % (AUTO) 8.2 %; NEUTROPHILS # (AUTO) 9.5 10^3/uL (1.5-6.6); NEUTROPHILS % (AUTO) 81.4 %; PLT - PLATELET COUNT 222 10^3/uL (130-450); RED CELL DISTRIBUTION WIDTH 16.6 % (12.0-15.0); WHITE BLOOD COUNT 11.6 x10^3/uL (4.8-10.8)
[2020-11-08] MEDS: oxyCODONE 5 MG TABLET PO PRN (06:54)
[2020-11-08 07:10] LABS: CALCIUM 8.6 mg/dL (8.5-10.3); CREATININE 1.7 mg/dL (0.6-1.2); POTASSIUM 4.9 mmol/L (3.5-5.0)
[2020-11-08 07:45] VITALS: BP 111/71
--- NOTE | 2020-11-08 07:47 | DISCHARGE SUMMARY ---
Discharge Summary Admit Date: 10/25/20 Discharge Date: 11/08/20 Discharging Provider: AMANDEEP Dawkins Code Status: Do Not Attempt Resuscitation Condition at Discharge: Fair Discharge Facility Name: [facility] - DIAGNOSES Admission Diagnoses: Alcoholic liver failure/cirrhosis Sacral pressure ulcer Heel ulceration Hyponatremia Diabetes mellitus with complication CKD Anemia Anxiety and Depression Discharge Diagnoses with Status of Each Condition: Alcoholic liver failure/cirrhosis complicated by ascites (s/p large volume paracentesis x 2 w/ albumin, hepatic encephalopathy controlled on lactulose, known nonbleeding varices. Stable Sacral pressure ulcer with cellulitis; unstageable, no osteomyelitis on imaging, wound care q 3 days as below, completed antibiotics Bilateral Heel ulceration/ no oseomyeliits on imaging/ wound care as below Hyponatremia r/t cirrhosis; resolved Na 135 on 11/08 (133 last several days prior to that , 129 on admit) Diabetes mellitus with complication; glucoses near 400 on admit, titration of insulin regimen w/ goal 140-180 with improved infection CKD; stable, midodrine 2.5 mg tid added to Rx regimen Anemia; stable, no bleed H/H 9.1/28.8 on discharge, Anxiety and Depression stable on venlafaxine - HPI History of Present Illness: This is a 56-year-old WM with history of morbid obesity, history of diabetes, alcohol abuse (he drank 1-2 sixpacks of beer a day for 15 years), developed hepatic cirrhosis with esophageal varices, apparently diagnosed with hepatocellular carcinoma followed at [facility], has had multiple admissions here for managing massive ascites and hepatic encephalopathy, noncompliance with Lactulose, uncooperative and abusive behavior. He used to have paracentesis 2 times a week for months, at the [facility] here. He was then living with his mother (August 2020) who stated she could no longer take care of him. He was also previously in Hospice then apparently signed himself out. [facility] the [facility], he no longer gets paracenteses, has been stable from his encephalopathy standpoint by being compliant with his oral Lactulose when administered. He presented to the emergency room 3 days ago for complaints of not being cooperative at [facility] and requesting a different skilled nursing fdc placement. The oncology social worker has been working on placement. He has been kept on his diabetic diet and lactulose and fluid restriction while in the ED for 3 days. Yesterday the ED provider requested a surgical consult for managing pressure wounds of both heels and a sacral decubitus ulcer. Today the general surgeon performed debridement in the ED of both heels and with local anesthetic he debrided the sacral wound. The patient is now being admitted for management of his wounds with dressings and probable antibiotics, evaluation for osteomyelitis, pain management and to continue his treatment of liver failure, diabetes and continue working on his placement for permanent skilled nursing care. The patient has a Full Code status. His CODE STATUS was discussed with his closest relative, his mother by Palliative Care Provider Harper Montiel NP in August 2020, but no POLST or final decision about transitioning to DNR is in our records. - CONSULTS | PROCEDURES Consultations: Palliative Care , wound care consult, surgical consult for bedside paracent Procedures: Paracentesis; large volume 12L and 15 L respectively on 10/31 and 11/04 with Albumin - HOSPITAL COURSE Hospital Course: Impression: /Cirrhosis + ascites, hx encephalopathy, known varies, Alb 3.0 (10/21), Tbilie 3.1 admit 10/21>>1.7 10/31 and HCC followed at [facility] on current plan s/p paracentesis x 2 since admit for 12L and 15 L (last 11/04) with albumin for large volume paracentesis w/ improvement in symptoms of abdominal pain/ general discomfort. Peritoneal fluid Cultures negative/ no SBP. Total bilie 3 on shana 1.7 on 10/31. Albumin 2.2. For several days, considerable loose stools w/ diarrhea complicating sacral wound management Lactulose dosing closer to goal stools now. Nausea / vomiting improved w/ prn zofran KUB; no obstruction, no free air or dilated bowel. There was some concern for early hepatorenal syndrome w/ brief Creatinine increae to 2.0. Howeber BUN and Cr have improved w/ midodrine and albumin. Mild hyponatremia on admit (129) has improved over last week to low 130's Currently not on lasix / spironolactone (was not on before admit either) . Continues 1.8 L fluid restriction Peritoneal fluid ; no growth/ no SBP Plan; continue lactulose, continue 1.8 L fluid restriction Consider rifaximin Scheduled paracentesis for Mondays and Continue midodrine 2.5 mg TID and albumin w/ large volume paracentesis prn for comfort Fluid restriction of 1800 cc/ day (50/50 nursing amount and dietary) Symptom management for nausea/vomiting includes prn zofran, ideally continue Sq heparin bid at SNF as patient does not get oob much * IF patient again becomes encephalopathic, mother then as MD SOTO may consider changing to comfort care Patient is DNR Patient given an additional dose PO oxycodone 5 mg for the transfer ride to [facility] (2) Uncontrolled type 2 diabetes mellitus with complication, with long-term current use of insulin Impression: glucoses had been in the 300's and 400's on presentation with sacral cellulitis A1C 6.7 Multiple dose adjustments to his regimen (At home was on 65 unit q am lantus) and improved glucoses w/ improved infection midday glucoses pre meal under 90 yesterday Current regimen (w/ slight reduction 11/07 AM lantus 35 units (reduced from 40 units), 10 units q pm (reduced from 20 units; had NO lantus pm of 11/07 with am glucose of 211 today 11/08, so adding back 10 units as pm dose. ) holding prandial 7 u aspart (as he is not eating much) and LOW dose corretional dose Adjust as indicated Requires assistance from nursing to eat and drink. (4) Decubitus ulcer, unstageable with infection/ cellulitis Impression: Unstageable sacral ulcer/ no osteo on MRI 10/25 completed course of pip/tazo, and vanco for polymicrobial wound (NON surgical culture) Antibiotics stopped 11/07 leukocytosis (12.1-> 25K on presentation was presumed to infection, leukocytosis improved) and increased glucoses much improved Wound care consult recommended Hydrofera blue and Pepilex dressings to sacrum; Last change to sacrum 11/07 pm) Often refusing turns/position changes/mostly supine w/ pillows either sidetime supine, Specialty mattress (group 2 low air loss mattress) not available here but would be benefitial if available at discharge (per repair specialist) Lactulose was titrated 11/03 to decrease the number of stools he is having to decrease dressing contamination. Wound care note from 10/30 Wound #1: sacral region "unstageable pressure injury. Wound bed is 100% black necrotic stringy slough that is firmly attached. The pressure injury measures approx 8 x 5 x 2. Minimal drainage noted with a foul odor. No undermining, no tunneling. The periwound presents very friable and bleeds with minimal stimulation. There is blanchable erythema extending approximately 10-12cm beyond the wound. The wound was cultured and dressed with hydrofera blue and a plain foam sacral border dressing. The dressing should be changed in three days. Will continue w/ recommendation to change ~ q 3 days unless soiled sooner Bilateral Heel unstageable pressure injuries. Wounds were visualized 11/04 with dressing change. All three heel ulcers consist of dry adherent eschar with attached edges. Mild periwound erythema, blanching, <3cm around. The right posterior heel ulcer is boggy at the center which I believe is a change and he would benefit from a follow up with the Wound Care team providers to see if further debridement is indicated. Plan; continue Hydrofera Blue and Mepilex were continued and the heels were offloaded in the air with pillows as [facility] does not have heel protection boots. (6) Hyponatremia related to cirrhosis Impression: Mild on presentation at 129 on 10/24, 10/25; stable at 133 As above, he is not currently on lasix or spironolactone Fluid restriction as above 1800 cc (7) CKD (chronic kidney disease) Impression: BUN and creatinine persistently 80-100 BUN/ Cr have climbed since October 28. Stable H/H / no melena to suggest GIB as source of BUN increase Fluid shifts after 2 large volume paracentesis (12, and 15 L as above) may have contributed. In an effort to combat hepatorenal failure predisposition, midodrine was added . (8) Anemia Impression: H/H stable 8.8/26.2, 8.2/25/5, 8.5/25.4 above no signs of acute or occult bleeding (9) Anxiety and depression Impression: stable on Wellbutrin, Occasionally irritable, Dispo, likely able to d/c to [place] [facility] on Fri - ALLERGIES Allergies/Adverse Reactions: Allergies Allergy/AdvReac Type Severity Reaction Status Date / Time cantaloupe Allergy Anaphylaxis Verified 10/21/20 08:33 melon Allergy Anaphylaxis Verified 10/21/20 08:33 lisinopril AdvReac Respiratory Verified 10/21/20 08:33 - MEDICATIONS Home Medications: Ambulatory Orders Medication Instructions Recorded Confirmed Albuterol Sulfate [Proair Hfa 1 - 2 puffs INH Q4H PRN 11/13/16 10/21/20 Inhaler] buPROPion HCL [Bupropion HCl Sr] 150 mg PO BID 02/15/20 10/21/20 Multivitamin W/Minerals [Theragran 1 tab PO DAILY #30 tablet 03/29/20 10/21/20 M] Venlafaxine ER [Effexor ER] 75 mg PO DAILY 09/15/20 10/21/20 Albumin 25% [Albuminar-25] 12.5 gm IV ONCE PRN #4 vial 11/08/20 Ferrous Gluconate [Fergon] 324 mg PO DAILYWM tablet 11/08/20 Heparin [Heparin Sodium (Porcine)] 5,000 unit SUBQ BID vial 11/08/20 Insulin Aspart [NovoLOG] 7 unit SUBQ TIDWM 11/08/20 Insulin Glargine [Lantus Solostar] 10 unit SUBQ HS #1 vial 11/08/20 Insulin Glargine,Hum.rec.anlog 40 units SUBQ DAILY #0 11/08/20 10/21/20 [Basaglar Kwikpen U-100] Lactulose 30 gm PO TID #0 bottle 11/08/20 10/21/20 Midodrine [ProAmatine] 2.5 mg PO TID #90 tablet 11/08/20 Ondansetron [Zuplenz] 4 mg PO Q6H PRN #30 tab 11/08/20 oxyCODONE [Roxicodone] 5 mg PO Q6H PRN #20 tablet 11/08/20 - PHYSICAL EXAM AT DISCHARGE General Appearance: positive: No acute distress, Alert (does not ), Other (cooperative) Eyes Bilateral: positive: Normal inspection, No scleral icterus ((no icterus appreciable), wearing glasses) ENT: positive: Pharynx nml, Other (upper and lower dentures, no mucosal icterus) Respiratory: positive: Chest non-tender, No respiratory distress, Breath sounds nml. negative: Rales, Rhonchi Cardiovascular: positive: Regular rate & rhythm, No murmur Abdomen: positive: Nml bowel sounds, Other (large abdomen, mild-modest bulging flanks, + fluid wave, not taut, no caput medusae,umbilical hernia Blunt catheter draining clear yellow urine, (last change 10/21)). negative: No distention, Tenderness, Guarding Skin: positive: Warm, Dry (minimal icterus), Other (cling on bilateral ankles feet, sacral wound not seen, (dressing changed pm 11/07)) Extremities: negative: Pedal edema Neurologic/Psychiatric: positive: Motor nml, Other (no asterixis today). negative: Oriented x3 (oriented to place and situation, does not recall today was transfer day, recalls mother visit yesterday) - LABS Result Diagrams: 11/08/20 06:41 11/08/20 06:41 - DIAGNOSTIC IMAGING Diagnostic Imaging Results Comments: MRI R and L heel 10/26; no osteomyelitis lumbar/sacral MRI; no osteomyeliits - SEPSIS Current Stage of Sepsis: Ruled out - QUALITY (Female Hip Fx Only) Was patient sent home on osteoporosis medication?: No - TIME SPENT Time Spent in Discharge (Minutes): 1
[2020-11-08] MEDS: SACCHAROMYCES BOULARDII 250 MG CAPSULE PO SCH (08:07)
[2020-11-08] MEDS: ONDANSETRON 4 MG/2 ML VIAL IVP PRN (08:07)
[2020-11-08] MEDS: VENLAFAXINE 37.5 MG TABLET PO SCH (08:07)
[2020-11-08] MEDS: buPROPion SR 150 MG TABLET PO SCH (08:07)
[2020-11-08] MEDS: FERROUS GLUCONATE 324 MG TABLET PO SCH (08:08)
[2020-11-08] MEDS: MULTIVITAMIN W/MINERALS TABLET PO SCH (08:08)
[2020-11-08] MEDS: INSULIN ASPART 300 UNIT/3 ML PEN SUBQ SCH ×2 (08:11)
[2020-11-08] MEDS: INSULIN GLARGINE 300 UNIT/3 ML PEN SUBQ SCH (08:11)
[2020-11-08] MEDS: HEPARIN 5,000 UNIT/ML VIAL SUBQ SCH (08:12)
[2020-11-08] MEDS: LACTULOSE 10 GM/15 ML BOTTLE PO SCH (08:19)
[2020-11-08] MEDS ORDERED: oxyCODONE 5 MG TABLET PO ONE (08:25)
== END 2020-11-08 08:40 | DRG 593 ==
LOC: EDUNIT# → ED 08:15 → MS2 10-23 12:29 → UNDOADMIN 10-23 12:29 → MS2 10-25 12:29
PROVIDERS: ADMIT Internal Medicine; ATTEND Specialist
PROC: 0HB6XZZ Excision of Back Skin, External Approach (ICD-10-PCS; principal; 2020-10-25)
PROC: 0HBNXZZ Excision of Left Foot Skin, External Approach (ICD-10-PCS; 2020-10-25)
PROC: 0HBMXZZ Excision of Right Foot Skin, External Approach (ICD-10-PCS; 2020-10-25)
PROC: 0HBNXZZ Excision of Left Foot Skin, External Approach (ICD-10-PCS; 2020-10-30)
PROC: 0W9G3ZZ Drainage of Peritoneal Cavity, Percutaneous Approach (ICD-10-PCS; 2020-10-31)
PROC: 0W9G3ZZ Drainage of Peritoneal Cavity, Percutaneous Approach (ICD-10-PCS; 2020-11-04)
DX: L89.150 Pressure ulcer of sacral region, unstageable (principal); E87.1 Hypo-osmolality and hyponatremia; I85.10 Secondary esophageal varices without bleeding; L03.317 Cellulitis of buttock; C22.0 Liver cell carcinoma; K52.1 Toxic gastroenteritis and colitis; T47.3X5A Adverse effect of saline and osmotic laxatives, initial encounter; K70.40 Alcoholic hepatic failure without coma; K70.31 Alcoholic cirrhosis of liver with ascites; L89.620 Pressure ulcer of left heel, unstageable; L89.610 Pressure ulcer of right heel, unstageable; I12.9 Hypertensive chronic kidney disease with stage 1 through stage 4 chronic kidney disease, or unspecified chronic kidney disease; E11.22 Type 2 diabetes mellitus with diabetic chronic kidney disease; N18.9 Chronic kidney disease, unspecified; D50.9 Iron deficiency anemia, unspecified; F32.9 Major depressive disorder, single episode, unspecified; F41.9 Anxiety disorder, unspecified; R33.9 Retention of urine, unspecified; J45.909 Unspecified asthma, uncomplicated; F10.11 Alcohol abuse, in remission; R11.14 Bilious vomiting; D72.829 Elevated white blood cell count, unspecified; E11.42 Type 2 diabetes mellitus with diabetic polyneuropathy; E11.649 Type 2 diabetes mellitus with hypoglycemia without coma; E11.65 Type 2 diabetes mellitus with hyperglycemia; E66.01 Morbid (severe) obesity due to excess calories; Z68.29 Body mass index [BMI] 29.0-29.9, adult; H54.7 Unspecified visual loss; G89.29 Other chronic pain; M54.9 Dorsalgia, unspecified; M19.90 Unspecified osteoarthritis, unspecified site; M62.81 Muscle weakness (generalized); B96.4 Proteus (mirabilis) (morganii) as the cause of diseases classified elsewhere; B96.1 Klebsiella pneumoniae [K. pneumoniae] as the cause of diseases classified elsewhere; B95.2 Enterococcus as the cause of diseases classified elsewhere; Z66 Do not resuscitate; Z53.29 Procedure and treatment not carried out because of patient's decision for other reasons; Z74.01 Bed confinement status; Z79.4 Long term (current) use of insulin; Z79.899 Other long term (current) drug therapy; Z87.891 Personal history of nicotine dependence; Z91.81 History of falling
CPT/HCPCS: 0202U; 36415; 49083; 71045; 72148; 73721; 74018; 76705; 80048; 80053; 80202; 82140; 82607; 82746; 83036; 83540; 83605; 83690; 83735; 84466; 85025; 85610; 85651; 86140; 87040; 87070; 87077; 87181; 87205; 94640; 97165; 97597; 99223; 99282; 99284; 99285; A6250; A9270; J1170; J1815; J3370; P9047